=== PATIENT | female | born 1965 | race Two or more races ===

== ENCOUNTER 2019-06-05 19:53 | Inpatient (IN) | payer MEDICARE, MEDICAID ==
[~2019-06-05] VITALS: Ht 162.6 cm; Wt 64.4 kg
[~2019-06-05 19:53] MED LIST: AMIT75TA2 PO; AMLO10TA13 PO; APIX5TAB PO; ASPI81CH4 PO; ATO40T PO; B-COTAB10 PO; CARV25TA55 PO; FURO80TA3 PO; HYDR-4296 PO; INSREG3 SC; INSUINJ2 SC; SEVE800T8 PO
[2019-06-05 21:03] LABS: Basophils # (auto) 0.1 uL; Eosinophils # (auto) 0.7 uL; Eosinophils % (auto) 8.8 % (0.0-7.0); Hematocrit 36.9 % (36.0-46.0); Hemoglobin 12.2 g/dL (12.2-16.2); Lymphocytes # (auto) 0.7 uL; Lymphocytes % (auto) 9.3 % (10.0-50.0); Mean Corpuscular Hemoglobin 32.7 pg (28.0-32.0); Mean Corpuscular Hgb Conc. 33.1 g/dL (32.0-36.0); Monocytes # (auto) 0.6 uL; Monocytes % (auto) 7.8 % (0.0-12.0); Neutrophils # (auto) 5.5 uL; Neutrophils % (auto) 73.1 % (37.0-80.0); Platelet Count (auto) 154 10^3/uL (140-450); Red Blood Cells 3.73 10^6/uL (4.0-5.20); Red Cell Distribution Width 13.8 % (11.8-14.3); White Blood Cell 7.5 10^3/uL (4.4-10.8)
[2019-06-05 21:12] LABS: Albumin 2.9 g/dL (3.4-5.0); BUN/Creatinine Ratio 4.8; Calcium 7.8 mg/dL (8.5-10.1); Magnesium 2.3 mg/dL (1.6-2.6); Potassium 3.8 mmol/L (3.5-5.1)
[2019-06-05 21:16] LABS: Bilirubin, Total 0.7 mg/dL (0.2-1.0); Total Protein 6.8 g/dL (6.4-8.2)
[2019-06-05 21:21] LABS: INR 1.3 (0.9-1.15); Partial Thromboplastin Time 29.4 sec (23.64-32.05)
[2019-06-06] VITALS (7 sets, daily range): BP systolic 113–152; BP diastolic 66–80
[2019-06-06] MEDS ORDERED: DEXTROSE (50%) 50ML SYRG IV PRN (00:45)
[2019-06-06] MEDS ORDERED: TEMAZEPAM 15 MG CAP PO PRN (00:45)
[2019-06-06] MEDS ORDERED: NITROGLYCERIN 0.4 MG SL TAB SL PRN (00:45)
[2019-06-06] MEDS ORDERED: MORPHINE SULF INJ 2 MG/ML SYRINGE 1ML IV PRN (00:45)
[2019-06-06] MEDS ORDERED: cloNIDine HCL 0.1 MG TAB PO PRN (00:45)
[2019-06-06] MEDS ORDERED: ONDANSETRON HCL 4 MG/2 ML VIAL IV PRN (00:45)
[2019-06-06] MEDS ORDERED: ACETAMINOPHEN 325 MG TAB PO PRN (00:45)
--- NOTE | 2019-06-06 01:45 | NUR ---
Telemetry admit from [facility]TON admitted to Telemetry unit. Patient oriented to Billie Nava, primary RN, unit, room, bed, and unit policies regarding patient care and visiting hours. Patient now on continuous telemetry monitoring, tele box # 12. Patient weighed by bedscale and encouraged to call if they need something. All questions and concerns addressed, patient verbalized understanding.
[2019-06-06] MEDS: ACCU-CHEK COMFORT CURVE STRIP VI SCH ×3 (05:42→17:00)
[2019-06-06] MEDS: PANTOPRAZOLE 40 MG TAB PO SCH (05:51)
[2019-06-06] MEDS: InsuLIN REG 1unit/0.01ml Soln (100units/ml) SC SCH ×3 (05:51→17:00)
--- NOTE | 2019-06-06 07:45 | NUR ---
OPENING NOTE Assumed care of patient from NOC RN, Billie. Patient awake and alert with no S/S of distress/SOB or pain. Patient visually impaired but can see shadows and movement. Instructed on POC and to call for assist PRN, verbalized understanding. Bed in lowest, locked position with side rails up x2. Fall precautions in place and call light within reach. Will continue to monitor for changes Q1hr and PRN.
[2019-06-06] MEDS: SEVELAMER 800 MG TAB PO SCH ×3 (08:29→17:00)
[2019-06-06] MEDS ORDERED: APIXABAN 5 MG TAB PO SCH (10:00)
[2019-06-06] MEDS: ASPirin 81 mg TAB PO SCH (11:07)
[2019-06-06] MEDS: CARVEDILOL 12.5 MG TAB PO SCH ×2 (11:08→22:40)
[2019-06-06] MEDS: APIXABAN 5 MG TAB PO SCH ×2 (11:08→22:40)
[2019-06-06] MEDS: amLODIPine BESYLATE 5 MG TAB PO SCH (11:09)
--- NOTE | 2019-06-06 11:10 | NUR ---
AT BEDSIDE Dr. Wesley Pemberton at patient's bedside.
--- NOTE | 2019-06-06 11:19 | NUR ---
RADIOLOGY Spoke with Radha in radiology, confirmed that patient was on today's schedule for Paracentesis.
--- NOTE | 2019-06-06 13:56 | NUR ---
OFF UNIT Patient taken off unit via wheelchair for paracentesis. No S/S of distress noted.
--- NOTE | 2019-06-06 14:25 | NUR ---
PT IN ULTRASOUND FOR A PARACENTESIS BY DR GARRIDO. VSS 106/62-62-16-93%. 1435: 115/66-63-17-92%. 1450: 115/70-62-16-92%. 1505 116/64-63-16-93%. FINISHED WITH PROCEDURE. PT TOLERATED WELL. 5100 ML OF DARK ANDREINA FLUID REMOVED. NOT SENT TO LAB.
--- NOTE | 2019-06-06 15:17 | NUR ---
RETURN TO UNIT Patient returned to unit via wheelchair. No S/S of distress/SOB or pain. S/P paracentesis, dressing to right side of abdomen clean/dry/intact. Patient's family at bedside. Will continue to monitor Q1hr/PRN.
--- NOTE | 2019-06-06 19:27 | NUR ---
CLOSING NOTE Endorsed care of patient to NOC Anjelica GALLOWAY.
--- NOTE | 2019-06-06 19:30 | NUR ---
Opening Shift Note Assumed care of patient, awake and alert. Ghanaian speaking only. Very [place]. loses hearing aid in bed at times. Assist to ambulate. Wobbly on feet. Can see very minimal. Considered blind. No S/S of distress/SOB or pain. Instructed on POC and to call for assist PRN, will continue to monitor for changes Q1hr and PRN.
[2019-06-06] MEDS ORDERED: ATORVASTATIN 20 MG TAB PO SCH (22:00)
--- NOTE | 2019-06-06 22:00 | NUR ---
CT called asking if I can bring patient down for her CT chest. Let them know I could as soon as I was done with my med pass, verbalized that was ok. Patient resting at this time. No distress noted
--- NOTE | 2019-06-06 23:00 | NUR ---
Escorted patient down to CT via W/C. Had to wait for another patient who just arrived. CT was fully staffed, not sure why they could not come get the patients. I waited downstairs with my patient for 20 minutes.
[2019-06-07] MEDS: ACCU-CHEK COMFORT CURVE STRIP VI SCH ×3 (00:30→12:40)
[2019-06-07] MEDS: InsuLIN REG 1unit/0.01ml Soln (100units/ml) SC SCH ×3 (00:58→12:40)
[2019-06-07 05:13] VITALS: BP 110/66
[2019-06-07] MEDS: PANTOPRAZOLE 40 MG TAB PO SCH (05:41)
[2019-06-07 06:48] LABS: Hematocrit 36.5 % (36.0-46.0); Hemoglobin 12.4 g/dL (12.2-16.2); Mean Corpuscular Hemoglobin 33.3 pg (28.0-32.0); Mean Corpuscular Volume 98.1 fL (80.0-100.0); Platelet Count (auto) 127 10^3/uL (140-450); Red Blood Cells 3.72 10^6/uL (4.0-5.20); White Blood Cell 7.2 10^3/uL (4.4-10.8)
[2019-06-07 06:51] LABS: Potassium 4.6 mmol/L (3.5-5.1)
[2019-06-07 06:54] LABS: Band Neutrophils % (manual) 0; Basophils % (manual) 0 (0.0-2.0); Blast Cells 0; Metamyelocytes % 0; Myelocytes % 0; Promyelocytes % 0; Reactive Lymphocytes 0
[2019-06-07 07:01] LABS: Albumin 2.4 g/dL (3.4-5.0); BUN/Creatinine Ratio 5.7; Bilirubin, Total 0.6 mg/dL (0.2-1.0); Calcium 8.1 mg/dL (8.5-10.1); Total Protein 5.7 g/dL (6.4-8.2)
--- NOTE | 2019-06-07 07:43 | NUR ---
OPENING NOTE Assumed care of patient from NOC RN, Anjelica. Patient resting in bed with eyes closed, even rise and fall of chest. No S/S of distress/SOB or pain. Bed in lowest, locked position with side rails up x2. Fall precautions in place and call light within reach. Will continue to monitor for changes Q1hr and PRN.
[2019-06-07 07:55] LABS: Eosinophils % (manual) 20 (0-7); Lymphocytes % (manual) 10 (10.0-50.0); Monocytes % (manual) 6 (0-12)
[2019-06-07] MEDS: SEVELAMER 800 MG TAB PO SCH ×2 (08:35→12:39)
[2019-06-07 09:28] VITALS: BP 121/69
[2019-06-07] MEDS: CARVEDILOL 12.5 MG TAB PO SCH (10:21)
[2019-06-07] MEDS: APIXABAN 5 MG TAB PO SCH (10:21)
[2019-06-07] MEDS: ASPirin 81 mg TAB PO SCH (10:21)
[2019-06-07] MEDS: amLODIPine BESYLATE 5 MG TAB PO SCH (10:22)
--- NOTE | 2019-06-07 10:40 | NUR ---
DIALYSIS drivematic machine operator at bedside.
[2019-06-07] MEDS ORDERED: SODIUM CHL 0.9% 1000 ML BAG XX ONE (11:15)
--- NOTE | 2019-06-07 11:37 | NUR ---
FAMILY Attempted to notify family regarding discharge, unable to reach any contacts at this time. Will continue to try.
--- NOTE | 2019-06-07 13:13 | NUR ---
FAMILY Attempted to notify family regarding discharge, unable to reach any contacts at this time.
[2019-06-07 13:29] VITALS: BP 131/62
--- NOTE | 2019-06-07 13:40 | NUR ---
FAMILY Spoke with patient's spouse, aware of discharge. phone #
--- NOTE | 2019-06-07 13:51 | NUR ---
assessment re: blind and cant do most ADL's Patient is a 53 year old female who is alert and answering appropriately. Patient informed me prior to admission she lived home with family and functioned with assistance of her caregiver. Per patient she will return home to her prior living arrangements post discharge and family will transport her home. Patient informed me she has a fww for home use. Patient informed me she feels safe returning home on discharge. Patient informed me her also helps her at home. Patient may benefit from home health safety and PT on discharge. I informed patient she has a right to speak to a healthcare social worker regarding all care. I informed patient she has a right to participate in any and all discharge planning. Patient does not have a POA and advanced directive. I have offered patient information on POA and advanced directives. I informed the patient the advantages and benefits of having an Advanced Directive. Patient verbalized understanding and agreed to discharge plan home. Addendum: 06/07/19 at 1355 by Mellisa MAYO Amended: Links added.
--- NOTE | 2019-06-07 14:22 | NUR ---
DIALYSIS Per chef de cuisine, 1L of fluid was removed. Patient tolerated well. Last BP reading 131/61 HR 62bpm.
--- NOTE | 2019-06-07 15:40 | NUR ---
DISCHARGE Discharge instructions given as ordered. Encouraged to follow up with PMD as instructed. All questions and concerns addressed. Patient and spouse verbalized understanding. Medication reconciliation form completed and copy given to patient. IV removed with catheter intact and pressure dressing applied. Telemetry unit returned to ICU. Patient taken to vehicle via wheelchair with all personal belongings, accompanied by staff and family member. No distress noted at time of departure.
== END 2019-06-07 15:35 | disposition home or self-care (01) | DRG 291 ==
LOC: EDBD 19:53 → ER 19:53 → TELE-EAST 19:54
PROVIDERS: ADMIT Nurse Practitioner; ATTEND Family Medicine
PROC: 0W9G3ZZ Drainage of Peritoneal Cavity, Percutaneous Approach (ICD-10-PCS; principal; 2019-06-06)
PROC: 5A1D70Z Performance of Urinary Filtration, Intermittent, Less than 6 Hours Per Day (ICD-10-PCS; 2019-06-07)
DX: I13.2 Hypertensive heart and chronic kidney disease with heart failure and with stage 5 chronic kidney disease, or end stage renal disease (principal); N18.6 End stage renal disease; R18.8 Other ascites; I31.3 Pericardial effusion (noninflammatory); N04.9 Nephrotic syndrome with unspecified morphologic changes; E46 Unspecified protein-calorie malnutrition; C85.90 Non-Hodgkin lymphoma, unspecified, unspecified site; K72.90 Hepatic failure, unspecified without coma; K74.60 Unspecified cirrhosis of liver; R14.0 Abdominal distension (gaseous); I50.810 Right heart failure, unspecified; E11.22 Type 2 diabetes mellitus with diabetic chronic kidney disease; E78.5 Hyperlipidemia, unspecified; H54.8 Legal blindness, as defined in USA; H90.3 Sensorineural hearing loss, bilateral; E78.00 Pure hypercholesterolemia, unspecified; I25.10 Atherosclerotic heart disease of native coronary artery without angina pectoris; F32.9 Major depressive disorder, single episode, unspecified; M10.9 Gout, unspecified; R59.1 Generalized enlarged lymph nodes; I50.9 Heart failure, unspecified; Z79.01 Long term (current) use of anticoagulants; Z90.49 Acquired absence of other specified parts of digestive tract; Z99.2 Dependence on renal dialysis; Z79.82 Long term (current) use of aspirin
CPT/HCPCS: 10022; 36415; 70450; 71045; 71250; 72125; 74176; 76700; 76942; 80053; 82150; 82962; 83605; 83615; 83690; 83735; 83880; 84484; 84702; 85007; 85025; 85027; 85610; 85730; 90935; 96374; G0378; J1815; J2405

== ENCOUNTER 2019-07-11 11:20 | Inpatient (IN) | payer MEDICARE, MEDICAID ==
[~2019-07-11] VITALS: Ht 33 cm; Wt 96.5 kg
[~2019-07-11 11:20] MED LIST changes: +ASP81EC PO; +ATOR20TA50 PO; +CAR125T PO; +CLOP75TA28 PO; +FERR-20 PO; +FURO40TA4 PO; +HYD25T PO; +INSUINJ37 SUBCUT; +Isosorbide Mononitrate PO; +NEPVITT PO; +PANT1INJ3 PO
--- NOTE | 2019-07-11 11:40 | NUR ---
Direct Admit Note PINO FERRERA admitted to Telemetry/MS unit as a direct admit per MD order. Patient oriented to Lakia Woods, primary RN, unit, room, bed, and unit policies regarding patient care and visiting hours. Patient placed on bedside oxygen, weighed by bedscale and encouraged to call if they need something. All questions and concerns addressed, patient verbalized understanding. MD notified of patients arrival and admit orders received.
[2019-07-11 13:00] VITALS: BP 179/85
[2019-07-11] MEDS ORDERED: LISI10TA6 PO (13:20)
[2019-07-11 14:02] LABS: Basophils # (auto) 0.1 uL; Basophils % (auto) 1.3 % (0.0-2.0); Eosinophils # (auto) 0.8 uL; Eosinophils % (auto) 10.3 % (0.0-7.0); Hematocrit 34.8 % (36.0-46.0); Hemoglobin 11.2 g/dL (12.2-16.2); Lymphocytes # (auto) 0.9 uL; Lymphocytes % (auto) 12.4 % (10.0-50.0); Mean Corpuscular Hemoglobin 32.1 pg (28.0-32.0); Mean Corpuscular Hgb Conc. 32.2 g/dL (32.0-36.0); Mean Corpuscular Volume 99.5 fL (80.0-100.0); Monocytes # (auto) 0.7 uL; Monocytes % (auto) 9.1 % (0.0-12.0); Neutrophils # (auto) 4.9 uL; Neutrophils % (auto) 66.9 % (37.0-80.0); Platelet Count (auto) 168 10^3/uL (140-450); Red Cell Distribution Width 14.4 % (11.8-14.3); White Blood Cell 7.3 10^3/uL (4.4-10.8)
[2019-07-11 14:18] LABS: Calcium 8.2 mg/dL (8.5-10.1); Potassium 4.8 mmol/L (3.5-5.1)
[2019-07-11 14:20] LABS: BUN/Creatinine Ratio 7.3
[2019-07-11] MEDS ORDERED: APIX2.5T PO (14:29)
--- NOTE | 2019-07-11 14:30 | NUR ---
MD DR FRANKEL AT BEDSIDE, UPDATE ON POSSIBILITY THAT PATIENT TAKES ELIQUIS AT HOME, VERIFIED WITH OFFICE THAT PATIENT DOES TAKE ELIQUIS 2.5MG BID. DR FRANKEL STATED TO PAGE DR OSPINA TO SEE IF HE WANTS PATIENT ADMITTED PENDING PARACENTESIS POSSIBLY TUESDAY WITH DR GARRIDO. WAITING FOR DR OSPINA TO CALL BACK.
--- NOTE | 2019-07-11 14:45 | NUR ---
IV insertion IV access obtained, via clean sterile technique by inserting 22 gauge catheter at RIGHT HAND after 1 attempt BY RELATIONSHIP EXECUTIVE JOSLYN. IV secured properly. No trauma to site. Patient tolerated well. NOTE:
--- NOTE | 2019-07-11 14:50 | NUR ---
DR OSPINA UPDATED ON PLAN AND CURRENT ORDERS PER DR FRANKEL REQUEST
[2019-07-11 17:00] VITALS: BP 182/86
--- NOTE | 2019-07-11 17:22 | NUR ---
ORDER NEW ORDER OBTAINED FROM DR FRANKEL FOR PRN BP MEDICATION.
[2019-07-11] MEDS ORDERED: cloNIDine HCL 0.1 MG TAB PO PRN (17:30)
[2019-07-11] MEDS: SEVELAMER 800 MG TAB PO SCH (18:15)
--- NOTE | 2019-07-11 18:23 | NUR ---
BLOOD SUGAR PATIENT REQUESTED TO HAVE HER SUGAR CHECKED BECAUSE SHE FELT LIKE IT WAS LOW, SUGAR CHECKED AND IS 389, MD AWARE- NO COVERAGE AT THIS TIME.
[2019-07-11 21:00] VITALS: BP 151/81
[2019-07-11] MEDS ORDERED: INSULIN NPH Isophane (HUMAN) 1unit/0.01ml Susp(100units/ml) SC SCH (22:00)
[2019-07-11] MEDS ORDERED: InsuLIN REG 1unit/0.01ml Soln (100units/ml) SC SCH (22:00)
[2019-07-11] MEDS: AMITRIPTYLINE HCL 25 MG TAB PO SCH (22:02)
[2019-07-11] MEDS: CARVEDILOL 12.5 MG TAB PO SCH (22:02)
[2019-07-11] MEDS: ATORVASTATIN 20 MG TAB PO SCH (22:03)
[2019-07-12 04:50] VITALS: BP 137/74
[2019-07-12 08:00] VITALS: BP 139/82
[2019-07-12 09:00] VITALS: BP 139/82
[2019-07-12 09:18] LABS: INR 1.16 (0.9-1.15)
[2019-07-12] MEDS: SEVELAMER 800 MG TAB PO SCH ×3 (09:54→18:39)
[2019-07-12] MEDS: CARVEDILOL 12.5 MG TAB PO SCH ×2 (09:55→21:31)
[2019-07-12] MEDS: FUROSEMIDE 40 MG TAB PO SCH (09:55)
[2019-07-12] MEDS: LISINOPRIL 10 MG TAB PO SCH (09:56)
[2019-07-12] MEDS ORDERED: cloNIDine HCL 0.1 MG TAB PO PRN (11:30)
[2019-07-12] MEDS ORDERED: DEXTROSE (50%) 50ML SYRG IV PRN (11:30)
[2019-07-12] MEDS: ACCU-CHEK COMFORT CURVE STRIP VI SCH ×3 (11:30→22:18)
[2019-07-12] MEDS: InsuLIN REG 1unit/0.01ml Soln (100units/ml) SC SCH ×3 (11:30→22:24)
[2019-07-12 13:00] VITALS: BP 152/84
[2019-07-12] MEDS ORDERED: SODIUM CHL 0.9% 1000 ML BAG XX ONE (16:45)
[2019-07-12 17:00] VITALS: BP_SYST 157; BP_SYST 165; BP_DIAS 83; BP_DIAS 94
[2019-07-12] MEDS: ATORVASTATIN 20 MG TAB PO SCH (21:31)
[2019-07-12] MEDS: AMITRIPTYLINE HCL 25 MG TAB PO SCH (21:31)
[2019-07-12 22:00] VITALS: BP 156/79
[2019-07-13 05:34] VITALS: BP 149/72
[2019-07-13 05:40] LABS: Basophils # (auto) 0.1 uL; Basophils % (auto) 1.1 % (0.0-2.0); Eosinophils # (auto) 0.8 uL; Eosinophils % (auto) 13.1 % (0.0-7.0); Hematocrit 33.7 % (36.0-46.0); Hemoglobin 11.3 g/dL (12.2-16.2); Lymphocytes # (auto) 0.8 uL; Lymphocytes % (auto) 12.4 % (10.0-50.0); Mean Corpuscular Hemoglobin 32.8 pg (28.0-32.0); Mean Corpuscular Hgb Conc. 33.4 g/dL (32.0-36.0); Mean Corpuscular Volume 98.2 fL (80.0-100.0); Monocytes # (auto) 0.5 uL; Monocytes % (auto) 8.2 % (0.0-12.0); Neutrophils # (auto) 4.2 uL; Neutrophils % (auto) 65.2 % (37.0-80.0); Platelet Count (auto) 151 10^3/uL (140-450); Red Blood Cells 3.43 10^6/uL (4.0-5.20); Red Cell Distribution Width 14.3 % (11.8-14.3); White Blood Cell 6.4 10^3/uL (4.4-10.8)
[2019-07-13 05:59] LABS: BUN/Creatinine Ratio 6.7; Potassium 4.7 mmol/L (3.5-5.1)
[2019-07-13] MEDS: ACCU-CHEK COMFORT CURVE STRIP VI SCH ×2 (06:31→11:54)
[2019-07-13] MEDS: InsuLIN REG 1unit/0.01ml Soln (100units/ml) SC SCH ×2 (06:31→11:54)
[2019-07-13 09:00] VITALS: BP 150/84
--- NOTE | 2019-07-13 09:15 | NUR ---
PT IN ULTRASOUND FOR A PARACENTESIS. VSS 154/75-67-16-95%. 0930:160/70-68-16-95%. 0945: 160/76-68-17-97%. 1000: 162/79-66-17-95%. FINISHED WITH PROCEDURE. PT TOLERATED WELL. 5500ML OF FLUID REMOVED AND SENT TO LAB.
--- NOTE | 2019-07-13 09:45 | NUR ---
PATIENT BACK ON UNIT FROM ULTRASOUND AFTER RECEIVING A PARACENTESIS. DRESSING TO RIGHT SIDE OF ABDOMEN DRY AND INTACT. PATIENT DENIES PAIN VITAL SIGNS WITHIN NORMAL LIMITS. WILL CONTINUE TO MONITOR.
[2019-07-13] MEDS: LISINOPRIL 10 MG TAB PO SCH (10:15)
[2019-07-13] MEDS: SEVELAMER 800 MG TAB PO SCH ×2 (10:15→11:54)
[2019-07-13] MEDS: FUROSEMIDE 40 MG TAB PO SCH (10:16)
[2019-07-13] MEDS: CARVEDILOL 12.5 MG TAB PO SCH (10:16)
--- NOTE | 2019-07-13 11:40 | NUR ---
SPOKE TO NEPHROLOGY SPOKE TO DR COLEMAN. VERBALIZED OKAY TO DISCHARGE AND TO EDUCATE PATIENT TO GO TO [facility] TODAY AT 2:00PM FOR DIALYSIS TREATMENT AFTER DISCHARGE. WILL CARRY OUT ORDERS
--- NOTE | 2019-07-13 11:45 | NUR ---
SPOKE TO CARDIOLOGY SPOKE TO DR FRANKEL, HE VERBALIZED IT WAS OKAY TO DISCHARGE PATIENT TODAY
[2019-07-13 12:11] VITALS: BP 153/74
--- NOTE | 2019-07-13 13:46 | NUR ---
DISCHARGE NOTE PATIENT ALERT AND ORIENTED X4 SPOUSE AT BEDSIDE. ALL DISCHARGE INSTRUCTIONS WERE GIVEN ALL QUESTIONS CONCERNS ADDRESSED AND QUESTIONS ANSWERED. DRESSING TO RIGHT SIDE OF ABDOMEN DRY AND INTACT. IV REMOVED USING ASEPTIC TECHNIQUE CATHETER INTACT PRESSURE DRESSING APPLIED PATIENT TOLERATED WELL. PATIENT EDUCATED TO GO TO [facility] FOR DIALYSIS AT 2:00PM PER DR COLEMAN. DR FRANKEL AGREED TO DISCHARGE ALSO. PATIENT DENIED ANY PAIN, SOB OR DISTRESS. ASSISTED PATIENT TO PERSONAL VEHICLE USING A WHEELCHAIR.
== END 2019-07-13 13:45 | disposition home or self-care (01) | DRG 432 ==
LOC: EAST 11:20
PROVIDERS: ADMIT Internal Medicine; ATTEND Internal Medicine
PROC: 5A1D70Z Performance of Urinary Filtration, Intermittent, Less than 6 Hours Per Day (ICD-10-PCS; 2019-07-12)
PROC: 0W9G3ZZ Drainage of Peritoneal Cavity, Percutaneous Approach (ICD-10-PCS; principal; 2019-07-13)
DX: K74.60 Unspecified cirrhosis of liver (principal); N18.6 End stage renal disease; I50.43 Acute on chronic combined systolic (congestive) and diastolic (congestive) heart failure; R18.8 Other ascites; I13.2 Hypertensive heart and chronic kidney disease with heart failure and with stage 5 chronic kidney disease, or end stage renal disease; E44.0 Moderate protein-calorie malnutrition; Z68.45 Body mass index [BMI] 70 or greater, adult; E11.319 Type 2 diabetes mellitus with unspecified diabetic retinopathy without macular edema; E11.22 Type 2 diabetes mellitus with diabetic chronic kidney disease; H54.8 Legal blindness, as defined in USA; E78.5 Hyperlipidemia, unspecified; F32.9 Major depressive disorder, single episode, unspecified; K76.0 Fatty (change of) liver, not elsewhere classified; B95.62 Methicillin resistant Staphylococcus aureus infection as the cause of diseases classified elsewhere; I25.10 Atherosclerotic heart disease of native coronary artery without angina pectoris; D64.9 Anemia, unspecified; I48.91 Unspecified atrial fibrillation; Z99.2 Dependence on renal dialysis; Z79.01 Long term (current) use of anticoagulants; Z79.899 Other long term (current) drug therapy
CPT/HCPCS: 10022; 36415; 49083; 76700; 76942; 80048; 82962; 83986; 85025; 85610; 87081; 87205; 89051; 90935; G0378; J1815

== ENCOUNTER 2019-07-23 15:36 | Inpatient (IN) | payer MEDICARE, MEDICAID ==
[~2019-07-23] VITALS: Ht 162.6 cm; Wt 27.6 kg
[~2019-07-23 15:36] MED LIST changes: +APIX2.5T PO; -APIX5TAB PO; +LISI10TA6 PO
[2019-07-23] MEDS ORDERED: ASPirin 81 mg TAB PO ONE (16:30)
[2019-07-23] MEDS ORDERED: NITROGLYCERIN 0.4 MG SL TAB SL ONE (16:30)
[2019-07-23 16:48] LABS: Basophils # (auto) 0.1 uL; Basophils % (auto) 1.5 % (0.0-2.0); Eosinophils # (auto) 0.8 uL; Eosinophils % (auto) 12.3 % (0.0-7.0); Hematocrit 36.3 % (36.0-46.0); Hemoglobin 12.1 g/dL (12.2-16.2); Lymphocytes # (auto) 0.7 uL; Lymphocytes % (auto) 10.2 % (10.0-50.0); Mean Corpuscular Hemoglobin 33.2 pg (28.0-32.0); Mean Corpuscular Hgb Conc. 33.5 g/dL (32.0-36.0); Mean Corpuscular Volume 99.3 fL (80.0-100.0); Monocytes # (auto) 0.4 uL; Monocytes % (auto) 6.3 % (0.0-12.0); Neutrophils # (auto) 4.8 uL; Neutrophils % (auto) 69.7 % (37.0-80.0); Nucleated Red Blood Cells % 0.1 %; Platelet Count (auto) 163 10^3/uL (140-450); Red Blood Cells 3.66 10^6/uL (4.0-5.20); Red Cell Distribution Width 13.9 % (11.8-14.3); White Blood Cell 6.9 10^3/uL (4.4-10.8)
[2019-07-23 17:03] LABS: Albumin 2.9 g/dL (3.4-5.0); Blood Urea Nitrogen 34 mg/dL (7-18); Calcium 7.8 mg/dL (8.5-10.1); Carbon Dioxide 29 mmol/L (21-32); Glucose 192 mg/dL (74-106)
[2019-07-23 17:05] LABS: Alanine Aminotransferase 14 U/L (13-56); Anion Gap 6 (5-15); Aspartate Aminotransferase 14 U/L (15-37); BUN/Creatinine Ratio 9.5; Chloride 101 mmol/L (98-107); GFR African American 17 mL/min; GFR Non-African American 14 mL/min; Potassium 4.2 mmol/L (3.5-5.1); Sodium 136 mmol/L (136-145)
[2019-07-23 17:08] LABS: INR 1.08 (0.9-1.15); Partial Thromboplastin Time 27.3 sec (23.64-32.05)
[2019-07-23 17:09] LABS: Alkaline Phosphatase 342 U/L (45-117); Bilirubin, Total 0.4 mg/dL (0.2-1.0); Total Protein 6.9 g/dL (6.4-8.2)
[2019-07-23] MEDS ORDERED: ONDANSETRON HCL 4 MG/2 ML VIAL IV PRN (21:00)
[2019-07-23] MEDS ORDERED: FUROSEMIDE 40 MG/4 ML VIAL IV ONE (21:00)
[2019-07-23] MEDS ORDERED: DEXTROSE (50%) 50ML SYRG IV PRN (21:00)
[2019-07-23] MEDS ORDERED: TEMAZEPAM 15 MG CAP PO PRN (21:00)
[2019-07-23] MEDS ORDERED: NITROGLYCERIN 0.4 MG SL TAB SL PRN (21:30)
[2019-07-23] MEDS ORDERED: MORPHINE SULF INJ 2 MG/ML SYRINGE 1ML IV PRN (21:30)
[2019-07-23] MEDS: hydrALAZINE HCL 25 MG TAB PO SCH (21:37)
[2019-07-23] MEDS: ATORVASTATIN 20 MG TAB PO SCH (21:38)
[2019-07-23] MEDS: CARVEDILOL 12.5 MG TAB PO SCH (21:38)
[2019-07-23 22:55] VITALS: BP 154/78
--- NOTE | 2019-07-23 22:55 | NUR ---
Telemetry admit from [facility] admitted to Telemetry unit after SBAR received. Patient oriented to Hien Ibarra, primary RN, unit, room, bed, and unit policies regarding patient care and visiting hours. Patient now on continuous telemetry monitoring, tele box # 1 and telemetry reading on arrival to unit is . Patient placed on bedside oxygen, weighed by bedscale and encouraged to call if they need something. All questions and concerns addressed, patient verbalized understanding. pt. blind. Note:
[2019-07-23] MEDS: InsuLIN REG 1unit/0.01ml Soln (100units/ml) SC SCH (23:58)
[2019-07-23] MEDS: ACCU-CHEK COMFORT CURVE STRIP VI SCH (23:58)
[2019-07-24 05:00] VITALS: BP 148/80
[2019-07-24] MEDS: FUROSEMIDE 40 MG TAB PO SCH ×2 (05:26→18:07)
[2019-07-24] MEDS: InsuLIN REG 1unit/0.01ml Soln (100units/ml) SC SCH ×4 (05:26→23:33)
[2019-07-24] MEDS: ACCU-CHEK COMFORT CURVE STRIP VI SCH ×4 (05:27→23:34)
[2019-07-24 07:56] LABS: Basophils # (auto) 0.1 uL; Basophils % (auto) 1.8 % (0.0-2.0); Eosinophils # (auto) 0.7 uL; Eosinophils % (auto) 12.7 % (0.0-7.0); Hematocrit 35.9 % (36.0-46.0); Hemoglobin 11.9 g/dL (12.2-16.2); Lymphocytes # (auto) 0.6 uL; Lymphocytes % (auto) 10.9 % (10.0-50.0); Mean Corpuscular Hemoglobin 32.7 pg (28.0-32.0); Mean Corpuscular Volume 99.1 fL (80.0-100.0); Monocytes # (auto) 0.5 uL; Monocytes % (auto) 7.8 % (0.0-12.0); Neutrophils # (auto) 3.9 uL; Neutrophils % (auto) 66.8 % (37.0-80.0); Platelet Count (auto) 153 10^3/uL (140-450); Red Blood Cells 3.63 10^6/uL (4.0-5.20); White Blood Cell 5.9 10^3/uL (4.4-10.8)
--- NOTE | 2019-07-24 08:10 | NUR ---
Opening Note Assumed care of patient, she is A & O x4, patient is guinean speaking, but can speak some Greek. No s/s of distress at this time, patient is sitting up at bedside eating breakfast. POC discussed with patient. No c/o pain at this time. Bed is in lowest, locked position, call light within reach. Educated patient to call for assistance to the bathroom because patient is visually impaired. Patient agreed. Will continue to monitor Q1h and PRN.
[2019-07-24 08:13] LABS: Calcium 8.1 mg/dL (8.5-10.1); Potassium 4.8 mmol/L (3.5-5.1)
[2019-07-24] MEDS: SILDENAFIL CITRATE 20 MG TAB PO SCH ×3 (08:21→22:03)
[2019-07-24] MEDS: SEVELAMER 800 MG TAB PO SCH ×3 (08:22→18:08)
[2019-07-24 08:30] VITALS: BP 157/88
[2019-07-24 10:26] LABS: Phosphorus 3.4 mg/dL (2.5-4.90); Uric Acid 3.8 mg/dL (2.6-6.0)
[2019-07-24] MEDS: ASPirin 81 mg TAB PO SCH (10:56)
[2019-07-24] MEDS: CLOPIDOGREL BISULFATE 75 MG TAB PO SCH (10:56)
[2019-07-24] MEDS: PANTOPRAZOLE 40 MG TAB PO SCH (10:58)
[2019-07-24] MEDS: CARVEDILOL 12.5 MG TAB PO SCH ×2 (10:58→22:03)
[2019-07-24] MEDS: hydrALAZINE HCL 25 MG TAB PO SCH ×2 (10:58→22:03)
[2019-07-24] MEDS: ISOSORBIDE MONONITRATE ER 60 MG TAB PO SCH (10:58)
--- NOTE | 2019-07-24 12:02 | NUR ---
Dr. Pemberton at bedside. He will place orders. Will await to see if US of lower extremities is positive for DVT.
[2019-07-24 12:30] VITALS: BP 143/76
--- NOTE | 2019-07-24 14:00 | NUR ---
US of lower extremities is negative for DVT.
[2019-07-24 16:47] VITALS: BP 128/63
[2019-07-24] MEDS: ACETAMINOPHEN 325 MG TAB PO PRN (18:48)
--- NOTE | 2019-07-24 19:10 | NUR ---
assumed care, pt. awake, assisted pt. to br than back to bed, no c/o pain, no sob.
--- NOTE | 2019-07-24 20:00 | NUR ---
called up pharmacy re: pt. revatio given late at 1800, as per pharmacy, will give revatio at 2200.
[2019-07-24] MEDS: ATORVASTATIN 20 MG TAB PO SCH (22:04)
[2019-07-24 22:20] VITALS: BP 115/59
[2019-07-25] VITALS (7 sets, daily range): BP systolic 135–156; BP diastolic 67–78
[2019-07-25] MEDS: ACETAMINOPHEN 325 MG TAB PO PRN (03:18)
[2019-07-25] MEDS: InsuLIN REG 1unit/0.01ml Soln (100units/ml) SC SCH ×3 (05:30→19:11)
[2019-07-25] MEDS: ACCU-CHEK COMFORT CURVE STRIP VI SCH ×3 (05:30→19:10)
[2019-07-25] MEDS: FUROSEMIDE 40 MG TAB PO SCH ×2 (05:31→19:03)
[2019-07-25] MEDS ORDERED: SODIUM CHL 0.9% 1000 ML BAG XX ONE (07:00)
[2019-07-25] MEDS: SILDENAFIL CITRATE 20 MG TAB PO SCH ×2 (08:03→14:00)
[2019-07-25] MEDS: SEVELAMER 800 MG TAB PO SCH ×3 (08:03→19:00)
[2019-07-25] MEDS: ASPirin 81 mg TAB PO SCH (08:03)
--- NOTE | 2019-07-25 08:10 | NUR ---
Opening Note Assumed care of patient, she is A & O x4, no s/s of distress. Patient c/o headache, will medicate per orders. Patient is otherwise comfortable at this time. POC discussed with patient, bed is in lowest, locked position, call light within reach, bed rails up x2, bed alarm on. Notified patient to call for assistance to get up as she is visually impaired. Will continue to monitor Q1H and PRN.
--- NOTE | 2019-07-25 08:25 | NUR ---
Dr. Pemberton at bedside. Patient will have dialysis and paracentesis today and then discharge home.
[2019-07-25] MEDS: CARVEDILOL 12.5 MG TAB PO SCH (10:00)
[2019-07-25] MEDS: ISOSORBIDE MONONITRATE ER 60 MG TAB PO SCH (10:00)
[2019-07-25] MEDS: hydrALAZINE HCL 25 MG TAB PO SCH (10:00)
--- NOTE | 2019-07-25 10:20 | NUR ---
adult education manager called she will be here for Dialysis at 1400.
--- NOTE | 2019-07-25 10:20 | NUR ---
DR GARRIDO AT BEDSIDE FOR PARACENTESIS PATIENT TOLERATED WELL, FLUID DRAINING, CRULLER MAKER MACHINE AND RN AT BEDSIDE.
--- NOTE | 2019-07-25 10:55 | NUR ---
PARACENTESIS COMPLETE 4,350ML REMOVED. NO ORDERS FOR LAB ON FLUID. PATIENT TOLERATED WELL.
[2019-07-25] MEDS: PANTOPRAZOLE 40 MG TAB PO SCH (12:06)
[2019-07-25] MEDS: CLOPIDOGREL BISULFATE 75 MG TAB PO SCH (12:07)
--- NOTE | 2019-07-25 15:00 | NUR ---
Dialysis Nurse at bedside
--- NOTE | 2019-07-25 17:53 | NUR ---
Paged Hospitalist Patient currently getting dialysis, BP beginning to rise 173/78, there are no PRN for elevated BP. Spoke to Rafael Moreland Hospitalist. Orders, received, readback and verified. Orders to wait until dialysis is done, then medicate per orders.
[2019-07-25] MEDS ORDERED: LABETALOL HCL 5 MG/ML ML 20ML VIAL IV PRN (18:00)
--- NOTE | 2019-07-25 18:40 | NUR ---
Dialysis complete Patient tolerated well. Blood pressure 165/78, HR 74, will recheck blood pressure in 15 minutes. If high will medicate per orders. Patient is comfortable at this time. This RN spoke to her , he is on his way to pickle processor the patient, as she is being discharged.
--- NOTE | 2019-07-25 19:00 | NUR ---
Blood pressure rechecked 159/82, HR 77. Patient okay to go home. at bedside. Pressure held to the AV fistula on the left arm, bleeding has stopped.
--- NOTE | 2019-07-25 19:30 | NUR ---
Discharge instructions given as ordered. Encourage to follow up with PMD as instructed. All questions and concerns addressed. Patient verbalized understanding. Medication reconciliation form completed and copy given to patient. IV removed with catheter intact, pressure dressing applied. Telemetry unit returned to ICU. Patient taken to vehicle via wheelchair with all personal belongings, accompanied by staff and family member. No distress noted at time of departure.
== END 2019-07-25 19:30 | disposition home or self-care (01) | DRG 280 ==
LOC: EDBD 15:36 → ER 15:42 → MERGE 15:43 → TELE 15:43 → TELE-EAST 22:35
PROVIDERS: ADMIT Nurse Practitioner; ATTEND Family Medicine
PROC: 5A1D70Z Performance of Urinary Filtration, Intermittent, Less than 6 Hours Per Day (ICD-10-PCS; principal; 2019-07-25)
PROC: 0W9G3ZZ Drainage of Peritoneal Cavity, Percutaneous Approach (ICD-10-PCS; 2019-07-25)
DX: I21.A1 Myocardial infarction type 2 (principal); N18.6 End stage renal disease; I50.43 Acute on chronic combined systolic (congestive) and diastolic (congestive) heart failure; I13.2 Hypertensive heart and chronic kidney disease with heart failure and with stage 5 chronic kidney disease, or end stage renal disease; I31.3 Pericardial effusion (noninflammatory); R18.8 Other ascites; R07.9 Chest pain, unspecified; D63.1 Anemia in chronic kidney disease; K74.60 Unspecified cirrhosis of liver; E11.22 Type 2 diabetes mellitus with diabetic chronic kidney disease; E11.319 Type 2 diabetes mellitus with unspecified diabetic retinopathy without macular edema; E11.65 Type 2 diabetes mellitus with hyperglycemia; E78.5 Hyperlipidemia, unspecified; I08.3 Combined rheumatic disorders of mitral, aortic and tricuspid valves; I25.10 Atherosclerotic heart disease of native coronary artery without angina pectoris; F32.9 Major depressive disorder, single episode, unspecified; F41.9 Anxiety disorder, unspecified; M10.9 Gout, unspecified; H54.8 Legal blindness, as defined in USA; I27.20 Pulmonary hypertension, unspecified; Z99.2 Dependence on renal dialysis; Z90.49 Acquired absence of other specified parts of digestive tract; Z79.899 Other long term (current) drug therapy; Z86.73 Personal history of transient ischemic attack (TIA), and cerebral infarction without residual deficits
CPT/HCPCS: 10022; 36415; 49083; 71045; 74176; 76705; 76942; 80048; 80053; 82306; 82728; 82962; 83880; 83970; 84100; 84484; 84550; 85025; 85379; 85610; 85730; 90935; 93005; 93970; G0378; J1815

== ENCOUNTER → 2019-08-10 | Outpatient (CLI) | payer MEDICARE, MEDICAID | END | disposition home or self-care (01) | LOC: Rad HDHVI 11:54 | PROVIDERS: ATTEND Internal Medicine | DX: I13.2 Hypertensive heart and chronic kidney disease with heart failure and with stage 5 chronic kidney disease, or end stage renal disease (principal); E11.22 Type 2 diabetes mellitus with diabetic chronic kidney disease; N18.6 End stage renal disease; I50.9 Heart failure, unspecified; E78.5 Hyperlipidemia, unspecified; Z86.73 Personal history of transient ischemic attack (TIA), and cerebral infarction without residual deficits; Z90.49 Acquired absence of other specified parts of digestive tract | CPT/HCPCS: 71100 ==

== ENCOUNTER 2019-08-30 08:40 | Inpatient (IN) | payer MEDICARE, MEDICAID ==
[~2019-08-30] VITALS: Ht 162.6 cm; Wt 69.9 kg
[2019-08-30 11:14] LABS: Hematocrit 36.1 % (36.0-46.0); Mean Corpuscular Hemoglobin 32.8 pg (28.0-32.0); Mean Corpuscular Hgb Conc. 33.1 g/dL (32.0-36.0); Platelet Count (auto) 161 10^3/uL (140-450); Red Blood Cells 3.65 10^6/uL (4.0-5.20); Red Cell Distribution Width 13.8 % (11.8-14.3); White Blood Cell 5.2 10^3/uL (4.4-10.8)
[2019-08-30 11:16] LABS: Band Neutrophils % (manual) 0; Basophils % (manual) 0 (0.0-2.0); Blast Cells 0; Metamyelocytes % 0; Myelocytes % 0; Promyelocytes % 0; Reactive Lymphocytes 0
[2019-08-30 11:37] LABS: Albumin 2.8 g/dL (3.4-5.0); Potassium 4.6 mmol/L (3.5-5.1)
[2019-08-30 11:40] LABS: BUN/Creatinine Ratio 7.5; Bilirubin, Total 0.6 mg/dL (0.2-1.0); Total Protein 6.8 g/dL (6.4-8.2)
[2019-08-30 11:48] LABS: Eosinophils % (manual) 17 (0-7); Lymphocytes % (manual) 10 (10.0-50.0); Monocytes % (manual) 7 (0-12)
[2019-08-30] MEDS ORDERED: ACETAMINOPHEN 500 MG TAB PO PRN (15:30)
[2019-08-30] MEDS ORDERED: PROMETHAZINE HCL 25 MG/ML 1ML IV PRN (15:30)
[2019-08-30] MEDS ORDERED: DEXTROSE (50%) 50ML SYRG IV PRN (15:30)
[2019-08-30] MEDS ORDERED: NITROGLYCERIN 0.4 MG SL TAB SL PRN (15:30)
[2019-08-30] MEDS ORDERED: traMADol HCL 50 MG TAB PO PRN (15:30)
[2019-08-30] MEDS ORDERED: MORPHINE SULF INJ 2 MG/ML SYRINGE 1ML IV PRN (15:30)
[2019-08-30] MEDS ORDERED: TEMAZEPAM 15 MG CAP PO PRN (15:30)
[2019-08-30 15:54] LABS: Amylase 43 U/L (25-115); Lipase 71 U/L (73-393)
--- NOTE | 2019-08-30 16:40 | NUR ---
RECEIVED REPORT FROM SELENA IN ER.
[2019-08-30] MEDS: ACCU-CHEK COMFORT CURVE STRIP VI SCH ×2 (17:00→22:41)
[2019-08-30] MEDS: InsuLIN REG 1unit/0.01ml Soln (100units/ml) SC SCH ×2 (17:00→22:42)
[2019-08-30 17:26] VITALS: BP 158/80
[2019-08-30 18:08] VITALS: BP 158/80
--- NOTE | 2019-08-30 19:25 | NUR ---
ADMISSION ASSESSMENT COMPLETED. LEFT UPPER ARM AV FISTULA POSITIVE BRUIE AND THRILL. STATES HD M W F AND THAT SHE DID HAVE HD YESTERDAY. NOW C/O PAIN TO RT KNEE. STATES SHE FELL IN THE BATHROOM IN ER WHEN TRYING TO GIVE A URINE SPECIMEN. MADE ONCOMING RN AWARE OF C/O AND NEED FOR URINE SPECIMEN.
--- NOTE | 2019-08-30 19:35 | NUR ---
Opening Shift Note Assumed care of patient, awake and alert oriented x4, bed alarm is armed. No S/S of distress/SOB noted. Bed is in lowest locked position with bed rails up x2 and call light is within reach of the patient with sticker to locate call light over nurse button. Instructed on POC and to call for assist PRN. Patients left upper arm AV fistula positive bruit and thrill.
[2019-08-30] MEDS: AMITRIPTYLINE HCL 25 MG TAB PO SCH (20:00)
[2019-08-30] MEDS: FUROSEMIDE 40 MG TAB PO SCH (20:01)
--- NOTE | 2019-08-30 20:30 | NUR ---
Placed PT/PTT blood draw for coags per protocol for radiology paracentesis tomorrow.
[2019-08-30 22:00] VITALS: BP 167/80
[2019-08-30] MEDS ORDERED: APIXABAN 2.5 MG TAB PO SCH (22:00)
[2019-08-30] MEDS: SEVELAMER 800 MG TAB PO SCH (22:37)
[2019-08-30] MEDS: hydrALAZINE HCL 25 MG TAB PO SCH (22:38)
[2019-08-30] MEDS: CARVEDILOL 12.5 MG TAB PO SCH (22:38)
[2019-08-30] MEDS: ATORVASTATIN 20 MG TAB PO SCH (22:39)
[2019-08-30] MEDS: FAMOTIDINE 20 MG TAB PO SCH (22:48)
[2019-08-30 23:34] LABS: Urine Bacteria FEW /hpf (None Seen); Urine Blood 1+ /uL (Negative); Urine Hyaline Cast FEW /lpf (0 - 2); Urine Specific Gravity 1.016 (1.001-1.035); Urine WBC 6 /hpf (0 - 5)
--- NOTE | 2019-08-31 01:55 | NUR ---
Blood sugar drop: Patients blood sugar dropped, patient was having complaints of hunger and dizziness. Checked blood sugar and it was 47. Rechecked critical blood sugar and it was 45. Gave patient a gram cracker and apple juice and sugar. To reassess blood sugar.
--- NOTE | 2019-08-31 02:35 | NUR ---
Rechecked blood sugar: Patient states "I'm feeling a lot better now." Patient no longer dizzy. Blood sugar reassessed and it is now 65, trending back up. To page and notify hospitalist.
--- NOTE | 2019-08-31 02:37 | NUR ---
Paged hospitalist: Paged hospitalist regarding patients dropped blood sugar and to notify about dropped blood sugar but it is now trending back up. Waiting for call back.
--- NOTE | 2019-08-31 02:59 | NUR ---
Hospitalist called Back: Hospitalist Dennys called back. Updated about patients low blood sugar and that low blood sugar is resolving and is now 65, patient now asymptomatic. No new orders given regarding blood sugar. Asked about a diet order for the patient and updated about patients history and diagnosis. Ordered for patient to be on a consistent carb hepatic controlled diet. To place orders.
[2019-08-31 05:00] VITALS: BP 143/79
[2019-08-31] MEDS: SEVELAMER 800 MG TAB PO SCH ×3 (05:54→22:17)
[2019-08-31] MEDS: FUROSEMIDE 40 MG TAB PO SCH ×2 (05:56→18:37)
[2019-08-31] MEDS: ACCU-CHEK COMFORT CURVE STRIP VI SCH ×4 (05:57→22:17)
[2019-08-31 06:16] LABS: Potassium 4.5 mmol/L (3.5-5.1)
[2019-08-31 06:24] LABS: Albumin 2.6 g/dL (3.4-5.0); BUN/Creatinine Ratio 8.3; Bilirubin, Total 0.7 mg/dL (0.2-1.0); Calcium 8.2 mg/dL (8.5-10.1); Total Protein 6.7 g/dL (6.4-8.2)
[2019-08-31 06:26] LABS: INR 1.23 (0.9-1.15); Partial Thromboplastin Time 31.2 sec (23.64-32.05)
[2019-08-31] MEDS: InsuLIN REG 1unit/0.01ml Soln (100units/ml) SC SCH ×4 (06:47→22:00)
[2019-08-31] MEDS: INSULIN LANTUS (GLARGINE) 1 /0.01ml (100units/ml) SC SCH (06:48)
--- NOTE | 2019-08-31 08:15 | NUR ---
Opening Note Assumed care of patient, she is A & O x4, no s/s of distress at this time, patient is legally blind, per report and patient statement she fell in the ER bathroom last night. Patient is on fall precautions, bed alarm on. POC discussed with patient. She is comfortable at this time. Bed is in lowest, locked position, call light within reach. Will continue to monitor Q1h and PRN. Informed continuity coordinator, asked if patient can be moved closer to the nursing station for safety, no beds at this time. Patient is on isolation for history of MRSA. Will continue to monitor.
[2019-08-31 09:00] VITALS: BP 157/85
[2019-08-31] MEDS ORDERED: CLOPIDOGREL BISULFATE 75 MG TAB PO SCH (10:00)
[2019-08-31] MEDS ORDERED: PATIENTS OWN MEDICATION (B-Complex W/ C & Folic Acid (Nephro-Vite) 1 TAB) PO SCH (10:00)
--- NOTE | 2019-08-31 10:45 | NUR ---
Patient on Eliquis and Plavix Dr. Aguirre at bedside, hold paracentesis until patient off of meds for 3 days. Will continue to monitor.
[2019-08-31] MEDS: FAMOTIDINE 20 MG TAB PO SCH (10:49)
[2019-08-31] MEDS: ASPirin-EC 81 mg tab PO SCH (10:50)
[2019-08-31] MEDS: B-COMPLEX W/ C & FOLIC ACID(NEPHROVITE TAB) PO SCH (10:50)
[2019-08-31] MEDS: hydrALAZINE HCL 25 MG TAB PO SCH ×2 (10:51→22:00)
[2019-08-31] MEDS: LISINOPRIL 10 MG TAB PO SCH (10:51)
[2019-08-31] MEDS: CARVEDILOL 12.5 MG TAB PO SCH ×2 (10:51→22:26)
[2019-08-31] MEDS: ISOSORBIDE MONONITRATE ER 60 MG TAB PO SCH (10:53)
[2019-08-31] MEDS: amLODIPine BESYLATE 5 MG TAB PO SCH (10:54)
[2019-08-31] MEDS: FERROUS SULFATE 325 MG TAB PO SCH (12:29)
[2019-08-31 13:00] VITALS: BP 152/85
[2019-08-31 17:17] VITALS: BP 120/66
[2019-08-31] MEDS: AMITRIPTYLINE HCL 25 MG TAB PO SCH (18:48)
--- NOTE | 2019-08-31 19:25 | NUR ---
Opening Shift Note Report received from day shift RN. Assumed care of patient. Patient sitting in bed awake and A&O x4. No S/S of distress/SOB noted and denies pain at this time. Bed locked in the lowest position with bed rails up x2 and call light is left within reach of the patient. Instructed on POC and to call for assistance PRN. Will continue to monitor for changes q 1hr and PRN.
[2019-08-31 22:00] VITALS: BP 115/60
[2019-08-31] MEDS: ATORVASTATIN 20 MG TAB PO SCH (22:17)
[2019-09-01 05:50] VITALS: BP 131/72
[2019-09-01] MEDS: FUROSEMIDE 40 MG TAB PO SCH ×2 (06:21→18:14)
[2019-09-01] MEDS: ACCU-CHEK COMFORT CURVE STRIP VI SCH ×3 (06:22→18:08)
[2019-09-01] MEDS: INSULIN LANTUS (GLARGINE) 1 /0.01ml (100units/ml) SC SCH (06:22)
[2019-09-01] MEDS: SEVELAMER 800 MG TAB PO SCH ×2 (06:22→14:49)
[2019-09-01] MEDS: InsuLIN REG 1unit/0.01ml Soln (100units/ml) SC SCH ×4 (06:23→22:00)
[2019-09-01 09:00] VITALS: BP 136/78
[2019-09-01] MEDS: FAMOTIDINE 20 MG TAB PO SCH (10:04)
[2019-09-01] MEDS: ASPirin-EC 81 mg tab PO SCH (10:04)
[2019-09-01] MEDS: B-COMPLEX W/ C & FOLIC ACID(NEPHROVITE TAB) PO SCH (10:04)
--- NOTE | 2019-09-01 12:20 | NUR ---
Spoke to svp digital ad sales Patient dialysis is rescheduled to tomorrow per Dr. Randall, there was a critical patient that took priority. Will medicate with BP meds per orders.
[2019-09-01] MEDS: FERROUS SULFATE 325 MG TAB PO SCH (12:35)
[2019-09-01] MEDS: hydrALAZINE HCL 25 MG TAB PO SCH (12:36)
[2019-09-01] MEDS: LISINOPRIL 10 MG TAB PO SCH (12:36)
[2019-09-01] MEDS: amLODIPine BESYLATE 5 MG TAB PO SCH (12:37)
[2019-09-01] MEDS: ISOSORBIDE MONONITRATE ER 60 MG TAB PO SCH (12:37)
[2019-09-01] MEDS: CARVEDILOL 12.5 MG TAB PO SCH (12:38)
[2019-09-01 13:00] VITALS: BP 142/33
--- NOTE | 2019-09-01 14:45 | NUR ---
Dr. Alvarez at bedside. Informed doctor of MRSA positive labs, will await orders.
[2019-09-01 17:07] VITALS: BP 125/71
[2019-09-01] MEDS: AMITRIPTYLINE HCL 25 MG TAB PO SCH (18:14)
--- NOTE | 2019-09-01 19:30 | NUR ---
received pt from day rn poc reviewed, pt observed sitting on side of bed tele off, placed back in bed reconnected tele and reset bed alarm , reoriented pt to nurse call light and poc pt appears to be disoriented, reminded pt to call for assistance before attempting to get oob, pt is blind
[2019-09-01 22:00] VITALS: BP 116/63
[2019-09-02] MEDS: MUPIROCIN 2% OINT 15gm or 22gm EACHNOSTRI SCH ×3 (00:19→22:12)
[2019-09-02] MEDS: hydrALAZINE HCL 25 MG TAB PO SCH ×3 (00:20→22:12)
[2019-09-02] MEDS: CARVEDILOL 12.5 MG TAB PO SCH ×3 (00:21→22:13)
[2019-09-02] MEDS: SEVELAMER 800 MG TAB PO SCH ×4 (00:22→22:13)
[2019-09-02] MEDS: ATORVASTATIN 20 MG TAB PO SCH ×2 (00:22→22:13)
[2019-09-02] MEDS: ACCU-CHEK COMFORT CURVE STRIP VI SCH ×5 (00:23→22:13)
[2019-09-02 05:00] VITALS: BP 120/62
[2019-09-02 06:22] LABS: BUN/Creatinine Ratio 9.8; Calcium 7.9 mg/dL (8.5-10.1)
[2019-09-02] MEDS: InsuLIN REG 1unit/0.01ml Soln (100units/ml) SC SCH ×4 (06:24→22:13)
[2019-09-02] MEDS: INSULIN LANTUS (GLARGINE) 1 /0.01ml (100units/ml) SC SCH (06:24)
[2019-09-02] MEDS: FUROSEMIDE 40 MG TAB PO SCH ×2 (06:27→17:51)
[2019-09-02 07:04] LABS: Potassium 5.6 mmol/L (3.5-5.1)
[2019-09-02 09:00] VITALS: BP 117/62
[2019-09-02] MEDS: ISOSORBIDE MONONITRATE ER 60 MG TAB PO SCH (10:00)
[2019-09-02] MEDS: amLODIPine BESYLATE 5 MG TAB PO SCH (10:00)
[2019-09-02] MEDS: LISINOPRIL 10 MG TAB PO SCH (10:00)
[2019-09-02] MEDS: B-COMPLEX W/ C & FOLIC ACID(NEPHROVITE TAB) PO SCH (10:21)
[2019-09-02] MEDS: FAMOTIDINE 20 MG TAB PO SCH (10:21)
[2019-09-02] MEDS: ASPirin-EC 81 mg tab PO SCH (10:21)
--- NOTE | 2019-09-02 10:30 | NUR ---
Dialysis Nurse at bedside.
[2019-09-02] MEDS: FERROUS SULFATE 325 MG TAB PO SCH (11:28)
[2019-09-02 13:00] VITALS: BP 163/80
--- NOTE | 2019-09-02 13:47 | NUR ---
Dialysis finished Per report from lens block gauger. Patient BP 151/74, HR 76, removed 3L fluid, can take off dressing between [id number]. Patient tolerated procedure well.
--- NOTE | 2019-09-02 15:52 | NUR ---
NUTRITION ASSESSMENT NOTES Please refer to link notes of nutrition screen form filed under the intervention section of the plan of care for further details. Est. Needs: 1400 kcal to 1750 kcal (20-25 kcal/kgBW), 70 gms to 98 gms pro (1.0-1.4 gms/kgBW d/t ESRD on HD). Will continue to monitor pertinent labs and reassess nutrient need prn Thank you. Addendum: 09/02/19 at [address] Amended: Links added.
--- NOTE | 2019-09-02 16:00 | NUR ---
Spoke to Dr. Alvarez Informed doctor of patient positive UA, there have been no antibiotics ordered or cultures. Orders for urine culture, read back and verified.
[2019-09-02 17:00] VITALS: BP 143/79
--- NOTE | 2019-09-02 17:00 | NUR ---
Removed dialysis pressure dressing Left upper arm. Thrill felt, bruit auscultated, band-aid placed over scabs.
[2019-09-02] MEDS: AMITRIPTYLINE HCL 25 MG TAB PO SCH (17:51)
--- NOTE | 2019-09-02 19:40 | NUR ---
Opening Shift Note Assumed care of patient, awake and alert. No S/S of distress/SOB or pain. Instructed on POC and to call for assist PRN. Bed in lowest locked position, call light within reach, side rails up x2, fall precautions in place. Will continue to monitor for changes Q1hr and PRN.
[2019-09-02 22:00] VITALS: BP 120/66
[2019-09-03 04:59] LABS: BUN/Creatinine Ratio 8.2; Calcium 7.8 mg/dL (8.5-10.1); Potassium 4.6 mmol/L (3.5-5.1)
[2019-09-03 05:00] VITALS: BP 125/69
[2019-09-03] MEDS: INSULIN LANTUS (GLARGINE) 1 /0.01ml (100units/ml) SC SCH (06:43)
[2019-09-03] MEDS: InsuLIN REG 1unit/0.01ml Soln (100units/ml) SC SCH ×3 (06:43→17:00)
[2019-09-03] MEDS: ACCU-CHEK COMFORT CURVE STRIP VI SCH ×3 (06:43→17:00)
[2019-09-03] MEDS: FUROSEMIDE 40 MG TAB PO SCH ×2 (06:43→18:00)
[2019-09-03] MEDS: SEVELAMER 800 MG TAB PO SCH ×2 (06:43→12:52)
[2019-09-03 08:00] VITALS: BP 152/76
[2019-09-03] MEDS: LISINOPRIL 10 MG TAB PO SCH (08:58)
[2019-09-03] MEDS: ASPirin-EC 81 mg tab PO SCH (08:58)
[2019-09-03] MEDS: hydrALAZINE HCL 25 MG TAB PO SCH (08:58)
[2019-09-03] MEDS: B-COMPLEX W/ C & FOLIC ACID(NEPHROVITE TAB) PO SCH (08:58)
[2019-09-03] MEDS: FAMOTIDINE 20 MG TAB PO SCH (08:59)
[2019-09-03] MEDS: ISOSORBIDE MONONITRATE ER 60 MG TAB PO SCH (08:59)
[2019-09-03 09:00] VITALS: BP 152/76
[2019-09-03] MEDS: amLODIPine BESYLATE 5 MG TAB PO SCH (09:00)
[2019-09-03] MEDS: CARVEDILOL 12.5 MG TAB PO SCH (09:00)
[2019-09-03] MEDS: MUPIROCIN 2% OINT 15gm or 22gm EACHNOSTRI SCH (09:02)
--- NOTE | 2019-09-03 10:18 | NUR ---
Gathered paracentesis supplies, at bedside. cardiac cath lab radiology technologist at bedside, awaiting for MD patient is calm sitting up in bed with no s/ s of distress/sob noted/stated.
--- NOTE | 2019-09-03 10:34 | NUR ---
PARACENTESIS PROCEDURE STARTED WITH DR GARRIDO AT BEDSIDE. VITALS: BP143/71, HR 78, SPO2 97, RR18. PATIENT IS CALMLY LAYING DOWN IN BED.
--- NOTE | 2019-09-03 10:49 | NUR ---
PARACENTESIS PROCEDURE AT BEDSIDE, VITALS BP 148/72, HR 79, RR 17, SPO2 96%. NO S/S OF DISTRESS/SOB NOTED/ STATED.
--- NOTE | 2019-09-03 10:57 | NUR ---
PARACENTESIS PROCEDURE COMPLETED. COLLECTED A TOTAL OF 3 L OF ANDREINA COLORED FLUID, NO S/S OF DISTRESS/SOB NOTED STATED. NO C/O PAIN. CATHETER REMOVED BY AUDIOLOGY ASSISTANT WITHOUT ANY DIFFICULTY, STERILE GAUZE AND BANDAGE PLACED AT RIGHT MEDIAL/LOWER ABDOMEN. VERY MINIMAL BLEEDING NOTED UNDER BANDAGE. WILL CONTINUE TO MONITOR. BED AT LOWEST LOCKED POSITION AND SIDE RAILS UP X2, CALL LIGHT WITHIN REACH. PATIENT COMFORTABLY RESTING IN BED.
--- NOTE | 2019-09-03 11:31 | NUR ---
CALLED NEXT OF KIN, TO NOTIFY HIM THAT SHE WILL BE DISCHARGED TODAY. NO ANSWER, LEFT A MESSAGE AND [facility] NUMBER.
[2019-09-03 12:48] VITALS: BP 149/76
[2019-09-03] MEDS: FERROUS SULFATE 325 MG TAB PO SCH (12:52)
--- NOTE | 2019-09-03 13:20 | NUR ---
PATIENT WAS ATTEMPTING TO LEAVE HER ROOM, WALKED PATIENT BACK TO CHAIR TO SIT. PATIENT STATES" I WANT TO GO HOME" AND IS UPSET THAT TRANSPORTATION IS TAKING SO LONG TO PICK HER UP. STUDENT SERVICE STATION HELPER NURSE AND I EXPLAINED TO HER THAT THERE IS A PROCESS TO GETTING TRANSPORTATION SET UP AND ASKED HER TO BE PATIENT, WE ARE WORKING ON IT. PATIENT IS CURRENTLY SITTING UP IN THE CHAIR, NO S/S OF SOB/PAIN STATED. PATIENT ROOM LIGHTS ON, BED AT LOWEST POSITION AND CALL LIGHT WITH PATIENT. EDUCATION PROVIDED TO USE THE CALL LIGHT AND ASK FOR HELP. WILL CONTINUE TO MONITOR.
--- NOTE | 2019-09-03 13:31 | NUR ---
PATIENT IS REFUSING TO WEAR TELE MONITOR. COLLECTED TELE BOX, WILL SEND UP TO TERRAZZO WORKER ROOM.
[2019-09-03 16:30] VITALS: BP 149/76
--- NOTE | 2019-09-03 16:47 | NUR ---
Discharge planning per SS consult, patient has orders to arrange for transportation home. Called the nurse Jodi to inquire of ambulation status and advise of transportation arrangements, and she advised that she spoke with the son Bart Cesar and he provided the password [id number] and he advised that he would pick his mother up for discharge in approximately one hour.
--- NOTE | 2019-09-03 17:50 | NUR ---
Discharge instructions given as ordered. Encourage to follow up with PMD as instructed. All questions and concerns addressed. Patient and family verbalized understanding. Medication reconciliation form completed and copy given to patient. IV removed with catheter intact, pressure dressing applied. Telemetry unit returned to ICU. Patient taken to vehicle via wheelchair with all personal belongings, accompanied by staff , and son Bart (son). No distress noted at time of departure.
[2019-09-03] MEDS: AMITRIPTYLINE HCL 25 MG TAB PO SCH (18:00)
== END 2019-09-03 17:41 | disposition home or self-care (01) | DRG 432 ==
LOC: ER 08:49 → TELE 08:50 → TELE-WESTW 17:00
PROVIDERS: ADMIT Internal Medicine; ATTEND Internal Medicine
PROC: 5A1D70Z Performance of Urinary Filtration, Intermittent, Less than 6 Hours Per Day (ICD-10-PCS; 2019-09-02)
PROC: 0W9G3ZZ Drainage of Peritoneal Cavity, Percutaneous Approach (ICD-10-PCS; principal; 2019-09-03)
DX: K74.60 Unspecified cirrhosis of liver (principal); N18.6 End stage renal disease; R18.8 Other ascites; Z99.2 Dependence on renal dialysis; E11.65 Type 2 diabetes mellitus with hyperglycemia; D63.1 Anemia in chronic kidney disease; E11.22 Type 2 diabetes mellitus with diabetic chronic kidney disease; Z79.01 Long term (current) use of anticoagulants; E87.5 Hyperkalemia; I25.10 Atherosclerotic heart disease of native coronary artery without angina pectoris; Z79.899 Other long term (current) drug therapy; Z79.82 Long term (current) use of aspirin; Z79.4 Long term (current) use of insulin
CPT/HCPCS: 10022; 36415; 49083; 76705; 76942; 80048; 80053; 81001; 82140; 82150; 82962; 83036; 83690; 84132; 85007; 85027; 85610; 85730; 87081; 90935; 93005; 99291; G0378; J1815

== ENCOUNTER → 2019-12-13 | Emergency (ER) | payer MEDICARE, MEDICAID ==
[~2019-12-13] VITALS: Ht 162.6 cm; Wt 64.9 kg
[~2019-12-13] MED LIST changes: +AMIT25TA9 PO; -AMIT75TA2 PO; -AMLO10TA13 PO; -ASP81EC PO; -ASPI81CH4 PO; -ATO40T PO; -CAR125T PO; -FURO40TA4 PO; -HYD25T PO; -NEPVITT PO; -PANT1INJ3 PO
[2019-12-13 14:11] LABS: Basophils # (auto) 0.1 10 ^3/uL (0-0.2); Basophils % (auto) 1.3 % (0.0-2.0); Eosinophils # (auto) 0.5 10 ^3/uL (0-0.8); Eosinophils % (auto) 8.9 % (0.0-7.0); Hematocrit 36.9 % (36.0-46.0); Hemoglobin 12.2 g/dL (12.2-16.2); Lymphocytes # (auto) 0.7 10 ^3/uL (0.4-5.4); Lymphocytes % (auto) 12.3 % (10.0-50.0); Mean Corpuscular Hemoglobin 32.9 pg (28.0-32.0); Mean Corpuscular Volume 99.8 fL (80.0-100.0); Monocytes # (auto) 0.6 10 ^3/uL (0-1.3); Neutrophils # (auto) 3.8 10 ^3/uL (1.6-8.6); Neutrophils % (auto) 67.5 % (37.0-80.0); Platelet Count (auto) 174 10^3/uL (140-450); Red Cell Distribution Width 13.9 % (11.8-14.3); White Blood Cell 5.6 10^3/uL (4.4-10.8)
[2019-12-13 14:36] LABS: Albumin 2.4 g/dL (3.4-5.0); Calcium 8.1 mg/dL (8.5-10.1); Potassium 4.8 mmol/L (3.5-5.1)
[2019-12-13 14:40] LABS: BUN/Creatinine Ratio 8.6; Bilirubin, Total 0.5 mg/dL (0.2-1.0); Total Protein 6.5 g/dL (6.4-8.2)
[2019-12-13 17:53] LABS: Urine Bacteria FEW /hpf (None Seen); Urine Blood TRACE /uL (Negative); Urine Hyaline Cast FEW /lpf (0 - 2); Urine Specific Gravity 1.016 (1.001-1.035); Urine WBC 7 /hpf (0 - 5)
[2019-12-13 18:16] VITALS: BP 177/92
== END | disposition home or self-care (01) ==
LOC: ER 11:27
DX: E11.22 Type 2 diabetes mellitus with diabetic chronic kidney disease (principal); I13.2 Hypertensive heart and chronic kidney disease with heart failure and with stage 5 chronic kidney disease, or end stage renal disease; I50.9 Heart failure, unspecified; N18.6 End stage renal disease; K74.60 Unspecified cirrhosis of liver; N39.0 Urinary tract infection, site not specified; E78.5 Hyperlipidemia, unspecified; Z79.4 Long term (current) use of insulin; Z79.899 Other long term (current) drug therapy
CPT/HCPCS: 36415; 73560; 76942; 80053; 81001; 85025; 93005; 99285; C1729; 10022

== ENCOUNTER → 2019-12-25 | Outpatient (CLI) | payer MEDICARE, MEDICAID ==
[2019-12-25 12:00] VITALS: BP 152/86
--- NOTE | 2019-12-25 12:00 | NUR ---
CHF PT SENT FROM BACK OFFICE FOR ADD ON PREOP. VSS PT A/O X 4 0 DISTRESS
[2019-12-25 12:20] VITALS: BP 177/55
--- NOTE | 2019-12-25 12:20 | NUR ---
Pre-Op Discharge Summary: See e-MAR for any medications given for this visit. Pre-op orders received and carried out per MD of EKG, LABS and chest xrays. Patient given a copy of EKG with instructions to go to [facility] out patient for further follow up care.
[2019-12-25 15:53] LABS: Basophils # (auto) 0.1 10 ^3/uL (0-0.2); Basophils % (auto) 1.2 % (0.0-2.0); Eosinophils # (auto) 0.6 10 ^3/uL (0-0.8); Eosinophils % (auto) 7.4 % (0.0-7.0); Hematocrit 41.4 % (36.0-46.0); Hemoglobin 13.8 g/dL (12.2-16.2); Lymphocytes # (auto) 0.7 10 ^3/uL (0.4-5.4); Lymphocytes % (auto) 9.5 % (10.0-50.0); Mean Corpuscular Hemoglobin 33.1 pg (28.0-32.0); Mean Corpuscular Hgb Conc. 33.3 g/dL (32.0-36.0); Mean Corpuscular Volume 99.6 fL (80.0-100.0); Monocytes # (auto) 0.5 10 ^3/uL (0-1.3); Monocytes % (auto) 6.8 % (0.0-12.0); Neutrophils # (auto) 5.7 10 ^3/uL (1.6-8.6); Neutrophils % (auto) 75.1 % (37.0-80.0); Platelet Count (auto) 184 10^3/uL (140-450); Red Blood Cells 4.15 10^6/uL (4.0-5.20); Red Cell Distribution Width 13.6 % (11.8-14.3); White Blood Cell 7.6 10^3/uL (4.4-10.8)
[2019-12-25 16:09] LABS: BUN/Creatinine Ratio 11.7; Calcium 8.8 mg/dL (8.5-10.1); Potassium 4.7 mmol/L (3.5-5.1)
[2019-12-25 16:19] LABS: INR 1.09 (0.9-1.15); Partial Thromboplastin Time 28.3 sec (23.64-32.05)
== END | disposition home or self-care (01) ==
LOC: Rad HDHVI 11:30
PROVIDERS: ATTEND Internal Medicine
DX: Z01.82 Encounter for allergy testing (principal); R09.89 Other specified symptoms and signs involving the circulatory and respiratory systems; I51.7 Cardiomegaly
CPT/HCPCS: 36415; 71046; 80048; 85025; 85610; 85730; 93005; G0463

== ENCOUNTER 2019-12-27 07:28 | Day surgery (SDC) | payer MEDICARE, MEDICAID ==
[2019-12-27] MEDS ORDERED: hydrALAZINE HCL 25 MG TAB PO ONE (12:00)
== END 2019-12-27 13:01 | disposition home or self-care (01) ==
LOC: CATH 07:28
PROVIDERS: ATTEND Internal Medicine Cardiovascular Disease
DX: R18.8 Other ascites (principal); I50.9 Heart failure, unspecified; Z98.890 Other specified postprocedural states
CPT/HCPCS: 49083; 76942; 87205; 89051

== ENCOUNTER 2020-01-10 11:24 | Inpatient (IN) | payer MEDICARE, MEDICAID ==
[~2020-01-10] VITALS: Ht 162.6 cm; Wt 66.7 kg
[2020-01-10 13:04] LABS: Basophils # (auto) 0.1 10 ^3/uL (0-0.2); Basophils % (auto) 1.3 % (0.0-2.0); Eosinophils # (auto) 0.6 10 ^3/uL (0-0.8); Eosinophils % (auto) 9.3 % (0.0-7.0); Hematocrit 39.2 % (36.0-46.0); Hemoglobin 12.9 g/dL (12.2-16.2); Lymphocytes # (auto) 0.5 10 ^3/uL (0.4-5.4); Mean Corpuscular Hemoglobin 33.1 pg (28.0-32.0); Mean Corpuscular Hgb Conc. 32.9 g/dL (32.0-36.0); Mean Corpuscular Volume 100.8 fL (80.0-100.0); Monocytes # (auto) 0.4 10 ^3/uL (0-1.3); Monocytes % (auto) 6.4 % (0.0-12.0); Neutrophils # (auto) 4.5 10 ^3/uL (1.6-8.6); Nucleated Red Blood Cells % 0.1 %; Platelet Count (auto) 163 10^3/uL (140-450); Red Blood Cells 3.89 10^6/uL (4.0-5.20); Red Cell Distribution Width 14.3 % (11.8-14.3); White Blood Cell 6.1 10^3/uL (4.4-10.8)
[2020-01-10 13:29] LABS: Alanine Aminotransferase 19 U/L (13-56); Albumin 2.6 g/dL (3.4-5.0); Anion Gap 9 (5-15); Aspartate Aminotransferase 15 U/L (15-37); BUN/Creatinine Ratio 9.3; Blood Alcohol < 3.0 mg/dL (0-5); Blood Urea Nitrogen 31 mg/dL (7-18); Carbon Dioxide 28 mmol/L (21-32); Chloride 98 mmol/L (98-107); GFR African American 18 mL/min; GFR Non-African American 15 mL/min; Glucose 321 mg/dL (74-106); Potassium 4.5 mmol/L (3.5-5.1); Sodium 135 mmol/L (136-145)
[2020-01-10 13:32] LABS: Alkaline Phosphatase 381 U/L (45-117); Bilirubin, Total 0.7 mg/dL (0.2-1.0); Total Protein 6.5 g/dL (6.4-8.2)
[2020-01-10 14:45] LABS: INR 1.18 (0.9-1.15); Partial Thromboplastin Time 27.8 sec (23.64-32.05)
[2020-01-10] MEDS ORDERED: MORPHINE SULF INJ 2 MG/ML SYRINGE 1ML IV PRN ×2 (14:45→15:15)
[2020-01-10] MEDS ORDERED: NITROGLYCERIN 0.4 MG SL TAB SL PRN (14:45)
[2020-01-10] MEDS ORDERED: ACETAMINOPHEN 500 MG TAB PO PRN (15:15)
[2020-01-10] MEDS ORDERED: PROMETHAZINE HCL 25 MG/ML 1ML IV PRN (15:15)
[2020-01-10] MEDS ORDERED: ALBUTEROL SULF 2.5 MG/0.5ML(0.5%) NEB SOLN NEB PRN (15:15)
--- NOTE | 2020-01-10 15:41 | NUR ---
Telemetry admit from PINO BRITTON admitted to Telemetry unit after report received. Patient oriented to DAYAMI UMANA RN primary RN, unit, room, bed, and unit policies regarding patient care and visiting hours. Patient now on continuous telemetry monitoring, tele box #67 and telemetry reading on arrival to unit is sinus rhythm. Patient weighed by bedscale and encouraged to call if they need something. All questions and concerns addressed, patient verbalized understanding.
[2020-01-10 16:25] VITALS: BP 156/76
--- NOTE | 2020-01-10 17:00 | NUR ---
Home Meds Reviewed home meds with patient. Patient states she still takes all listed medications.
[2020-01-10] MEDS: cefTRIAXone 1GM/50ML D5W 50 ML IV SCH (17:18)
[2020-01-10] MEDS: InsuLIN REG 1unit/0.01ml Soln (100units/ml) SC SCH ×2 (17:46→19:48)
[2020-01-10] MEDS: INSULIN LANTUS (GLARGINE) 1 /0.01ml (100units/ml) SC SCH (17:46)
[2020-01-10] MEDS: ACCU-CHEK COMFORT CURVE STRIP VI SCH ×2 (17:47→19:46)
[2020-01-10] MEDS: FUROSEMIDE 100 MG/10ML VIAL IV SCH (17:48)
[2020-01-10] MEDS: AZITHROMYCIN 500MG/ 250ML 250 ML IV SCH (17:54)
[2020-01-10] MEDS ORDERED: InsuLIN REG 1unit/0.01ml Soln (100units/ml) SC SCH (18:00)
[2020-01-10] MEDS: ALBUTEROL SULF 2.5 MG/0.5ML(0.5%) NEB SOLN NEB SCH (18:00)
[2020-01-10] MEDS ORDERED: CARVEDILOL 12.5 MG TAB PO SCH (18:00)
[2020-01-10] MEDS: AMITRIPTYLINE HCL 25 MG TAB PO SCH (18:01)
[2020-01-10] MEDS: IPRATROPIUM BROM 0.5 MG/2.5ML INH SOL NEB SCH (18:01)
[2020-01-10] MEDS: SEVELAMER 800 MG TAB PO SCH (18:01)
--- NOTE | 2020-01-10 18:40 | NUR ---
IV pain Patient is requesting IV site be changed because it is "too uncomfortable." IV site is not red, swollen. IV site is flushing. Turned down piggyback that is currently running to see if it eases patient's discomfort.
--- NOTE | 2020-01-10 18:50 | NUR ---
Checking IV site Patient is resting with eyes closed, appears to be asleep. Patient no longer seems to be in any pain.
--- NOTE | 2020-01-10 19:12 | NUR ---
Closing Shift Note Patient resting in bed. No distress noted. Report given. Will endorse care to the senior underwriting assistant RN.
--- NOTE | 2020-01-10 19:30 | NUR ---
OPENING NOTE REPORT RECEIVED FROM DAY SHIFT RN PATIENT IS A/OX4 RESTING IN BED. PATIENT IS LEGALLY BLIND AND HARD OF HEARING. PHYSICAL ASSESSMENT DONE- SEE INTERVENTIONS. PATIENT C/O PAIN TO RIGHT FINGER IV, PATIENT REQUESTS FOR NEW IV LINE PLACEMENT. DIALYSIS FISTULA NOTED TO LEFT UPPER ARM, BRUIT AND THRILL PRESENT. POC DISCUSSED, ALL QUESTIONS ANSWERED. WILL MONITOR Q1H PRN THROUGHOUT SHIFT, CALL LIGHT WITHIN REACH, FALL PRECAUTIONS IN PLACE.
--- NOTE | 2020-01-10 19:45 | NUR ---
IV removal TO RIGHT FINGER PER PATIENT REQUEST IV DC'd with clean sterile technique, catheter fully intact. Pressure dressing applied to site. Patient tolerated well.
--- NOTE | 2020-01-10 20:00 | NUR ---
IV insertion IV access obtained, via clean sterile technique by inserting 22 gauge catheter at RIGHT FOREARM after 1 attempt. IV secured properly. No trauma to site. Patient tolerated well.
[2020-01-10 21:00] VITALS: BP 142/79
[2020-01-10 21:59] VITALS: BP 156/76
[2020-01-10] MEDS: ATORVASTATIN 20 MG TAB PO SCH (22:20)
[2020-01-10] MEDS: FAMOTIDINE 20 MG TAB PO SCH (22:20)
[2020-01-10] MEDS: APIXABAN 2.5 MG TAB PO SCH (22:21)
[2020-01-10] MEDS: hydrALAZINE HCL 25 MG TAB PO SCH (22:21)
--- NOTE | 2020-01-10 23:00 | NUR ---
BLOOD GLUCOSE PATIENT STATES SHE FELT LIKE HER BLOOD SUGAR IS GETTING LOW. ACCU CHECK DONE. BLOOD GLUCOSE AT 120 WILL CONTINUE TO MONITOR
--- NOTE | 2020-01-11 | NUR ---
MIDNIGHT ACCU CHECK AT 100 PATIENT STATES SHE FEELS "LOW". SNACKS PROVIDED TO PATIENT INCLUDING A JUICE, CRACKERS AND A JELLO. PATIENT ABLE TO EAT ALL SNACKS PROVIDED.
[2020-01-11] MEDS: ACCU-CHEK COMFORT CURVE STRIP VI SCH ×7 (00:01→23:35)
[2020-01-11] MEDS: InsuLIN REG 1unit/0.01ml Soln (100units/ml) SC SCH ×7 (04:00→23:36)
[2020-01-11 04:57] LABS: Urine Bacteria FEW /hpf (None Seen); Urine Blood Negative /uL (Negative); Urine Specific Gravity 1.013 (1.001-1.035); Urine WBC 30 /hpf (0 - 5)
[2020-01-11 05:00] VITALS: BP 155/87
[2020-01-11 05:08] LABS: Amphetamine Screen, Urine NEGATIVE (NEGATIVE); Barbiturate Scree,Urine NEGATIVE (NEGATIVE); Benzodiazephine Screen, Urine NEGATIVE (NEGATIVE); Cannabinoid Screen, Urine NEGATIVE (NEGATIVE); Cocaine Screen, Urine NEGATIVE (NEGATIVE); Opiate Scree,Urine NEGATIVE (NEGATIVE); Phencyclidine Screen, Urine NEGATIVE (NEGATIVE)
--- NOTE | 2020-01-11 05:24 | NUR ---
ROUTINE EKG DONE ORDERED BY MD FOR CHF PLACED IN HARD CHART FOR MD TO SIGN
[2020-01-11] MEDS: FUROSEMIDE 100 MG/10ML VIAL IV SCH ×2 (06:12→17:38)
[2020-01-11] MEDS: INSULIN LANTUS (GLARGINE) 1 /0.01ml (100units/ml) SC SCH (06:12)
--- NOTE | 2020-01-11 06:16 | NUR ---
MED REFUSAL PATIENT REFUSED AM DOSE OF LANTUS. BLOOD SUGAR 129 THIS AM. EDUCATED PATIENT ON THE IMPORTANCE OF GLUCOSE CONTROL. PATIENT STATES THAT SHE RECEIVED LANTUS YESTERDAY EVENING AND THAT HER BLOOD SUGAR FELT LIKE IT DROPPED TOO LOW DURING THE NIGHT. PATIENT DOES NOT WANT ANYMORE LANTUS AT THIS TIME
--- NOTE | 2020-01-11 06:45 | NUR ---
LAB CALLED AND SPOKE TO [facility] CRYSTAL RE: 0600 LABS PER CRYSTAL, "I WILL SEND SOMEONE UP SHORTLY"
--- NOTE | 2020-01-11 06:47 | NUR ---
CLOSING PATIENT IS RESTING COMFORTABLY IN BED. NO S/S OF DISTRESS. PATIENT PENDING FOR PARACENTESIS TODAY. CALL LIGHT WITHIN REACH, FALL PRECAUTIONS IN PLACE. WILL ENDORSE CARE TO DAYSHIFT RN
--- NOTE | 2020-01-11 07:00 | NUR ---
OPENING SHIFT NOTE ASSUMED CARE OF PATIENT FROM INSTRUCTOR TECHNICAL TRAINING LAVERNE WATERS. PATIENT HAS NO S/S OF DISTRESS/SOB OR PAIN. INSTRUCTED PATIENT ON POC, PATIENT VERBALIZED UNDERSTANDING. BED IS IN LOWEST POSITION WITH SIDE RAILS RAISED X2, BED WHEELS LOCKED, AND CALL LIGHT IS WITHIN REACH. WILL CONTINUE TO MONITOR.
[2020-01-11] MEDS: IPRATROPIUM BROM 0.5 MG/2.5ML INH SOL NEB SCH ×3 (07:05→18:38)
[2020-01-11] MEDS: ALBUTEROL SULF 2.5 MG/0.5ML(0.5%) NEB SOLN NEB SCH ×3 (07:06→18:38)
[2020-01-11] MEDS: SEVELAMER 800 MG TAB PO SCH ×3 (07:38→17:37)
--- NOTE | 2020-01-11 08:34 | NUR ---
UNABLE TO DO PARACENTESIS TODAY DUE TO PT BEING ON ELIQUIS AND PLAVIX.
[2020-01-11 09:00] VITALS: BP 154/86
[2020-01-11] MEDS: cefTRIAXone 1GM/50ML D5W 50 ML IV SCH (09:14)
[2020-01-11] MEDS: hydrALAZINE HCL 25 MG TAB PO SCH ×2 (09:15→21:11)
[2020-01-11] MEDS: LISINOPRIL 10 MG TAB PO SCH (09:16)
[2020-01-11] MEDS: FERROUS SULFATE 325 MG TAB PO SCH (09:16)
[2020-01-11] MEDS: AZITHROMYCIN 500MG/ 250ML 250 ML IV SCH (09:53)
[2020-01-11] MEDS: APIXABAN 2.5 MG TAB PO SCH ×2 (09:57→21:12)
[2020-01-11] MEDS ORDERED: ISOSORBIDE MONONITRATE ER 60 MG TAB PO SCH (10:00)
[2020-01-11] MEDS ORDERED: CLOPIDOGREL BISULFATE 75 MG TAB PO SCH (10:00)
--- NOTE | 2020-01-11 12:30 | NUR ---
MD CAMERON AT BEDSIDE UPDATED MD ON PATIENT'S STATUS, INCLUDING TROPONIN LEVEL AND INFORMED MD ELIQUIS AND PLAVIX WERE HELD, SO PATIENT CAN HAVE PARACENTESIS. PER MD CANCEL PARACENTESIS AND MD ORDERED CARDIO CONSULT. WILL FOLLOW THROUGH WITH ORDERS.
[2020-01-11] MEDS ORDERED: ACETAMINOPHEN 500 MG TAB PO PRN (12:45)
[2020-01-11 13:00] VITALS: BP 120/75
--- NOTE | 2020-01-11 14:12 | NUR ---
SPOKE WITH DR. COLEMAN PER THEY WILL TRY TO DO DIALYSIS TODAY, IF NOT HE WILL PUT IN ORDERS FOR DIALYSIS FOR TOMORROW.
[2020-01-11] MEDS: traMADol HCL 50 MG TAB PO PRN (15:36)
[2020-01-11 17:00] VITALS: BP 147/80
[2020-01-11] MEDS: CARVEDILOL 12.5 MG TAB PO SCH (17:38)
[2020-01-11] MEDS: AMITRIPTYLINE HCL 25 MG TAB PO SCH (17:38)
--- NOTE | 2020-01-11 19:15 | NUR ---
opening note pt aox4. pt denies pain or discomfort at this time. respirations are even and non labored on room air. pt is legally blind. pt is ambulatory with assistance. pt currently dangling at the bedside. bed in low locked position, call light within reach.
--- NOTE | 2020-01-11 19:17 | NUR ---
CLOSING SHIFT NOTE ENDORSED CARE TO BRIDGE MANAGER LAVERNE KEN. PATIENT HAS NO S/S OF DISTRESS/SOB OR PAIN AT THIS TIME.
[2020-01-11 21:00] VITALS: BP 137/69
[2020-01-11] MEDS: TEMAZEPAM 15 MG CAP PO PRN (21:12)
[2020-01-11] MEDS: ATORVASTATIN 20 MG TAB PO SCH (21:12)
[2020-01-11] MEDS: FAMOTIDINE 20 MG TAB PO SCH (21:12)
--- NOTE | 2020-01-12 03:09 | NUR ---
pt up to bathroom w/ nurse aid assistance
[2020-01-12] MEDS: ACCU-CHEK COMFORT CURVE STRIP VI SCH ×5 (03:31→20:14)
[2020-01-12] MEDS: InsuLIN REG 1unit/0.01ml Soln (100units/ml) SC SCH ×5 (03:32→20:15)
--- NOTE | 2020-01-12 04:15 | NUR ---
IV infiltrated at right forearm, removed catheter, all pieces intact, pt tolerated well.
[2020-01-12 05:00] VITALS: BP 137/75
--- NOTE | 2020-01-12 05:00 | NUR ---
IV New IV access obtained at the right wrist, 22g, pt tolerated insertion well.
--- NOTE | 2020-01-12 05:18 | NUR ---
pain pt requesting pain medication for head ache, rating of 5/10. pt will be medicated appropriately.
[2020-01-12] MEDS: FUROSEMIDE 100 MG/10ML VIAL IV SCH ×2 (05:19→17:48)
[2020-01-12] MEDS: traMADol HCL 50 MG TAB PO PRN (05:27)
[2020-01-12] MEDS: INSULIN LANTUS (GLARGINE) 1 /0.01ml (100units/ml) SC SCH (06:31)
--- NOTE | 2020-01-12 06:48 | NUR ---
pt currently dangling at bedside. A&O to person and place. pt denies pain or discomfort at this time. respiration even and nonlabored on room air. bed in low locked position, call light within reach.
[2020-01-12] MEDS: ALBUTEROL SULF 2.5 MG/0.5ML(0.5%) NEB SOLN NEB SCH ×4 (06:49→18:41)
[2020-01-12] MEDS: IPRATROPIUM BROM 0.5 MG/2.5ML INH SOL NEB SCH ×4 (06:52→18:41)
[2020-01-12 06:57] LABS: BUN/Creatinine Ratio 10.9; Calcium 8.2 mg/dL (8.5-10.1); Potassium 5.5 mmol/L (3.5-5.1)
--- NOTE | 2020-01-12 07:10 | NUR ---
OPENING SHIFT NOTE ASSUMED CARE OF PATIENT FROM CLERICAL SUPPORT SPECIALIST LAVERNE KEN. PATIENT IS AWAKE AND ALERT X4. PATIENT HAS NO S/S OF DISTRESS/SOB OR PAIN. INSTRUCTED PATIENT ON POC, PATIENT VERBALIZED UNDERSTANDING. BED IS IN LOWEST POSITION WITH SIDE RAILS RAISED X2, BED WHEELS LOCKED, AND CALL LIGHT IS WITHIN REACH. WILL CONTINUE TO MONITOR.
--- NOTE | 2020-01-12 07:28 | NUR ---
CALLED [facility] REGARDING PATIENT'S DIALYSIS. THEY ARE PAGING THE FACILITY SERVICE ASSOCIATE DOCTOR AWAITING CALL BACK.
[2020-01-12] MEDS: SEVELAMER 800 MG TAB PO SCH ×3 (07:59→17:49)
[2020-01-12] MEDS: cefTRIAXone 1GM/50ML D5W 50 ML IV SCH (07:59)
[2020-01-12] MEDS: CARVEDILOL 12.5 MG TAB PO SCH ×2 (08:00→17:49)
[2020-01-12 09:00] VITALS: BP 135/74
--- NOTE | 2020-01-12 10:14 | NUR ---
MD CAMERON AT BEDSIDE UPDATED MD ON PATIENT'S STATUS INCLUDING POTASSIUM LEVEL AND PATIENT STATES HER ABDOMEN IS TIGHT, MD IS AWARE AND ORDERED ULTRASOUND OF ABDOMEN AND PARACENTESIS FOR TUESDAY. INFORMED MD PATIENT HAD ELIQUIS LAST NIGHT, MD IS AWARE. PER MD HE WILL DISCHARGE PATIENT IF THERE IS NOT ENOUGH FLUID FOR A PARACENTESIS, PATIENT IS AWARE AND VERBALIZED UNDERSTANDING.
--- NOTE | 2020-01-12 11:20 | NUR ---
DIALYSIS AT BEDSIDE.
[2020-01-12 13:00] VITALS: BP 150/81
[2020-01-12] MEDS: FERROUS SULFATE 325 MG TAB PO SCH (14:09)
[2020-01-12] MEDS: hydrALAZINE HCL 25 MG TAB PO SCH ×2 (14:09→21:39)
[2020-01-12] MEDS: AZITHROMYCIN 250 MG TAB PO SCH (14:09)
[2020-01-12] MEDS: LISINOPRIL 10 MG TAB PO SCH (14:10)
--- NOTE | 2020-01-12 16:09 | NUR ---
ASSESSED PATIENT'S BLOOD SUGAR AND IT IS CURRENTLY 59. GAVE PATIENT ORANGE JUICE AND REASSESSED BLOOD SUGAR IS 57 AND PATIENT HAD 100 ML EMESIS.
--- NOTE | 2020-01-12 16:20 | NUR ---
SPOKE WITH DOCTOR NISHA AND INFORMED HIM OF LOW BLOOD SUGAR AND PATIENT UNABLE TO DRINK ORANGE JUICE DUE TO VOMITING. MD IS AWARE. INFORMED FREQUENCY OF ACCUCHECK IS Q4 HOURS, MD IS AWARE AND ORDERED MARLENI
[2020-01-12] MEDS: DEXTROSE (50%) 50ML SYRG IV PRN (16:26)
[2020-01-12] MEDS ORDERED: ONDANSETRON HCL 4 MG/2 ML VIAL IV PRN (16:30)
[2020-01-12 16:34] VITALS: BP 142/77
--- NOTE | 2020-01-12 16:46 | NUR ---
ADMINISTERED DEXTROSE AND REASSESSED BLOOD SUGAR. BLOOD SUGAR IS 176
[2020-01-12 17:00] VITALS: BP 153/75
[2020-01-12] MEDS: AMITRIPTYLINE HCL 25 MG TAB PO SCH (17:50)
--- NOTE | 2020-01-12 19:24 | NUR ---
CLOSING SHIFT NOTE ENDORSED CARE TO STAFF CERTIFIED NURSE MIDWIFE LAVERNE KEN. PATIENT HAS NO S/S OF DISTRESS/SOB OR PAIN AT THIS TIME. WILL CONTINUE TO MONITOR.
--- NOTE | 2020-01-12 19:35 | NUR ---
opening note pt is aox4. pt resting in semi fowlers with HOB at 30 degrees. pt denies pain or discomfort at this time, will continue to monitor. respirations are even and nonlabored on room air. bed in low locked position, call light within reach.
[2020-01-12] MEDS: FAMOTIDINE 20 MG TAB PO SCH (21:39)
[2020-01-12] MEDS: ATORVASTATIN 20 MG TAB PO SCH (21:39)
[2020-01-12 21:57] VITALS: BP 154/83
--- NOTE | 2020-01-12 23:26 | NUR ---
pt ambulating to bathroom with NA standby assistance.
--- NOTE | 2020-01-13 00:05 | NUR ---
IV IV access at right wrist infiltrated. IV catheter removed and intact. pt tolerated removal well.
[2020-01-13] MEDS: ACCU-CHEK COMFORT CURVE STRIP VI SCH ×6 (00:06→20:28)
[2020-01-13] MEDS: ALBUTEROL SULF 2.5 MG/0.5ML(0.5%) NEB SOLN NEB SCH ×4 (00:30→18:38)
[2020-01-13] MEDS: IPRATROPIUM BROM 0.5 MG/2.5ML INH SOL NEB SCH ×4 (00:30→18:37)
--- NOTE | 2020-01-13 00:30 | NUR ---
SITTER SITTER pt has periods of confusion. pt wanders around room at times. pt is legally blind. pt now has a sitter at bedside for patients safety.
--- NOTE | 2020-01-13 00:40 | NUR ---
New IV IV access initiated at right wrist, 22g. patient tolerated insertion well.
[2020-01-13] MEDS: InsuLIN REG 1unit/0.01ml Soln (100units/ml) SC SCH ×6 (04:00→20:27)
[2020-01-13] MEDS: FUROSEMIDE 100 MG/10ML VIAL IV SCH ×2 (05:44→17:49)
[2020-01-13 05:55] LABS: BUN/Creatinine Ratio 9.5; Calcium 8.3 mg/dL (8.5-10.1); Potassium 5.4 mmol/L (3.5-5.1)
[2020-01-13] MEDS: INSULIN LANTUS (GLARGINE) 1 /0.01ml (100units/ml) SC SCH (06:37)
--- NOTE | 2020-01-13 06:57 | NUR ---
closing note pt dangling at bedside. respirations even and nonlabored on room air. no s/s of pain or discomfort. bed in low locked position, call light within reach.
--- NOTE | 2020-01-13 07:35 | NUR ---
Opening Note Received report from slot shift manager RN. Patient resting in bed, no signs or symptoms of distress noted at this time. Patient is on room air, respirations even and unlabored. Bed in low and locked position, call light within reach. Will continue to monitor Q1 hour and PRN. Sitter at bedside for safety.
[2020-01-13] MEDS: CARVEDILOL 12.5 MG TAB PO SCH ×2 (07:57→17:50)
[2020-01-13] MEDS: SEVELAMER 800 MG TAB PO SCH ×3 (07:57→17:51)
--- NOTE | 2020-01-13 08:10 | NUR ---
Patient refused 0800 insulin Patient states "I'm not taking that until you check my sugar." Patients blood glucose was checked by this RN. Patients glucose was 160. Patient continues to refuse. Will continue to monitor Q1 hour and PRN. Sitter at bedside for safety.
[2020-01-13] MEDS: cefTRIAXone 1GM/50ML D5W 50 ML IV SCH (09:22)
[2020-01-13] MEDS: hydrALAZINE HCL 25 MG TAB PO SCH ×3 (09:23→21:28)
[2020-01-13] MEDS: AZITHROMYCIN 250 MG TAB PO SCH (09:23)
[2020-01-13] MEDS: FERROUS SULFATE 325 MG TAB PO SCH (09:23)
[2020-01-13] MEDS: LISINOPRIL 10 MG TAB PO SCH ×2 (09:24→10:00)
--- NOTE | 2020-01-13 10:33 | NUR ---
Dr. Meche Pemberton at bedside Discussing plan of care with patient and this RN. No new orders received. Will continue to monitor Q1 hour and PRN.
--- NOTE | 2020-01-13 14:02 | NUR ---
Patient moved to room 277B Sitter discontinued at this time. Bed in low and locked position, call light within reach. Bed alarm on for safety. Will continue to monitor Q1 hour and PRN.
[2020-01-13 16:56] VITALS: BP 154/80
[2020-01-13] MEDS: AMITRIPTYLINE HCL 25 MG TAB PO SCH (17:50)
[2020-01-13] MEDS: DEXTROSE (50%) 50ML SYRG IV PRN (18:05)
--- NOTE | 2020-01-13 18:05 | NUR ---
Hypoglycemia Patient blood sugar 52. Patient given orange juice. Patient reassessed blood glucose now 49. Patient is awake and alert. Administered dextrose. Will continue to monitor, will reassess.
--- NOTE | 2020-01-13 18:20 | NUR ---
IV removed IV to right wrist removed, catheter intact, pressure dressing applied.Patient tolerated well. Will continue to monitor Q1 hour and PRN.
--- NOTE | 2020-01-13 18:21 | NUR ---
Blood glucose reassessed Patients blood glucose is ow 162. Patient sitting up in bed eating dinner, alert and oriented. Will continue to monitor Q1 hour and PRN.
--- NOTE | 2020-01-13 18:59 | NUR ---
Unable to obtain IV access Multiple attempts made, snath handle assembler at bedside and is aware. Will endorse to shift manager RN.
--- NOTE | 2020-01-13 19:10 | NUR ---
Closing Note Report given to hourly shift manager RN. No signs or symptoms of distress noted at this time.
--- NOTE | 2020-01-13 19:38 | NUR ---
Midline Placement: Patient educated on need for midline placement. All risks and benefits explained and all questions and concerns addresses prior to procedure. 18g/10cm midline inserted via right brachial vein using Ultrasound. Sterile technique utilized. Blood return obtained from lumen and flushed easily with NS using proper technique. Midline secured with saline lock; biodisc and occlusive dressing applied. Primary RN notified. Midline lot #[id number].
--- NOTE | 2020-01-13 19:40 | NUR ---
Midline Placement Nurse informed of of midline placement in ALFONSO 18g
--- NOTE | 2020-01-13 19:55 | NUR ---
Opening Shift Note Assumed care of patient, awake and alert. No S/S of distress/SOB or pain. Instructed on POC and to call for assist PRN, will continue to monitor for changes Q1hr and PRN. Midline placement in ALFONSO. Patient helped to the bathroom with moderate assistance.
[2020-01-13] MEDS: FAMOTIDINE 20 MG TAB PO SCH (21:28)
[2020-01-13] MEDS: ATORVASTATIN 20 MG TAB PO SCH (21:28)
[2020-01-13] MEDS: TEMAZEPAM 15 MG CAP PO PRN (21:36)
[2020-01-13 22:00] VITALS: BP 156/73
[2020-01-13 22:54] VITALS: BP 156/73
[2020-01-14] VITALS (7 sets, daily range): BP systolic 144–188; BP diastolic 70–115
[2020-01-14] MEDS: InsuLIN REG 1unit/0.01ml Soln (100units/ml) SC SCH ×5 (00:21→16:00)
[2020-01-14] MEDS: ACCU-CHEK COMFORT CURVE STRIP VI SCH ×5 (00:25→16:00)
[2020-01-14] MEDS: ALBUTEROL SULF 2.5 MG/0.5ML(0.5%) NEB SOLN NEB SCH ×3 (00:28→16:08)
[2020-01-14] MEDS: IPRATROPIUM BROM 0.5 MG/2.5ML INH SOL NEB SCH ×3 (00:28→16:08)
--- NOTE | 2020-01-14 04:25 | NUR ---
Low Glucose Glucose of 54, given three oranges juices with two packs of sugar, will reassess blood sugar.
[2020-01-14] MEDS: FUROSEMIDE 100 MG/10ML VIAL IV SCH (06:28)
[2020-01-14] MEDS: INSULIN LANTUS (GLARGINE) 1 /0.01ml (100units/ml) SC SCH (06:31)
--- NOTE | 2020-01-14 06:43 | NUR ---
Lantus Held Held Lantus due to patients's blood sugar of 132. Patient had an episode of hypoglycemia (BS-53) during the night. Will endorsed information to day shift nurse.
[2020-01-14] MEDS ORDERED: hydrALAZINE HCL 25 MG TAB PO PRN (06:45)
--- NOTE | 2020-01-14 06:45 | NUR ---
Blood Pressure Medication PRN Hospitalist made aware of patients blood pressure of 175/85 with no blood pressure PRN medication. Hospitalist ordered Hydralazine 25 mg PO TID SBP>150 PRN. Repeated orders to verified.
--- NOTE | 2020-01-14 07:28 | NUR ---
Opening Shift Note Assumed care of patient. Pt is awake, alert, and oriented X 3. No S/S of respiratory distress/SOB. Respirations are regular and non-labored. Patient reports no pain. Bed in lower position, brakes are locked, call light is within reach. IV is patent. Fistula is in L.arm . Thrills and bruits are present. POC discussed and pt instructed to call for assistance PRN. Will continue to monitor for changes Q1hr and PRN.
[2020-01-14] MEDS: SEVELAMER 800 MG TAB PO SCH ×2 (08:36→14:13)
[2020-01-14] MEDS: CARVEDILOL 12.5 MG TAB PO SCH (08:37)
[2020-01-14] MEDS: cefTRIAXone 1GM/50ML D5W 50 ML IV SCH (08:40)
[2020-01-14] MEDS: FERROUS SULFATE 325 MG TAB PO SCH (10:51)
[2020-01-14] MEDS: AZITHROMYCIN 250 MG TAB PO SCH (10:51)
[2020-01-14] MEDS: LISINOPRIL 10 MG TAB PO SCH (10:52)
[2020-01-14] MEDS: hydrALAZINE HCL 25 MG TAB PO SCH (10:52)
--- NOTE | 2020-01-14 11:35 | NUR ---
Dr. Pemberton at bed side to see a patient. Dr discussed the POC with the patient. Dr informed regarding potassium level 5.4, about holding regular insulin and lantus due to low blood sugar and patient was not eating well; regarding high blood pressure.
--- NOTE | 2020-01-14 15:35 | NUR ---
PATIENT BROUGHT TO US ROOM PER BED FOR PARACENTESIS BASELINE VITALS BP 128/79-72-16-97% ON ROOM AIR 1545 HR 72-15-96%-139/75 1550 HR 73-14-97%-131/83 1555 HR 73-14-96%-125/77 1600 HR 72-14-96%-130/74 1605 HR 72-20-95%-139/71 1608 HR 72-17-96%-135/85 1615 3650 LIGHT ANDREINA LIQUID OBTAINED. PATIENT TOLERATED PROCEDURE WELL. BAND-AID APPLIED TO RLQ ABD AFTER CATHETER REMOVED MIN BLEEDING NOTED AT SITE - NOT SUSTAINED WITH MANUAL PRESSURE APPLIED. PATIENT RETURNED TO ROOM PER BED. CONDITION APPEARS STABLE.
--- NOTE | 2020-01-14 16:30 | NUR ---
Pt back to room from radiology, BP 144/79, HR 72, RR 18, BS 149, no coverage per Dr. Pemberton since pt's blood sugar has been decreasing with insulin, pt denies any pain reported at this time.
--- NOTE | 2020-01-14 17:05 | NUR ---
Discharge instructions given as ordered. Encourage to follow up with PMD as instructed. All questions and concerns addressed. Patient verbalized understanding. Discussed discharge instructions with pt's son Reji over the phone including pt's diet, new prescriptions, follow up appointments, and education material sent with pt. Medication reconciliation form completed and copy given to patient. No home medications held in Pharmacy. IV removed with catheter intact, pressure dressing applied. Telemetry unit returned to ICU.
--- NOTE | 2020-01-14 17:25 | NUR ---
Patient taken to vehicle via wheelchair with all personal belongings, accompanied by staff, pt's family waiting for pt outside. Pt's discharge instructions, education material, and new prescription placed in pt's purse. No distress noted at time of departure.
== END 2020-01-14 17:20 | disposition home or self-care (01) | DRG 280 ==
LOC: ER 11:24 → TELE 11:25 → TELE-WESTW 15:46
PROVIDERS: ADMIT Internal Medicine; ATTEND Family Medicine
PROC: 0W9G3ZZ Drainage of Peritoneal Cavity, Percutaneous Approach (ICD-10-PCS; principal; 2020-01-14)
DX: I13.2 Hypertensive heart and chronic kidney disease with heart failure and with stage 5 chronic kidney disease, or end stage renal disease (principal); I21.A1 Myocardial infarction type 2; I50.43 Acute on chronic combined systolic (congestive) and diastolic (congestive) heart failure; J18.9 Pneumonia, unspecified organism; N18.6 End stage renal disease; R18.8 Other ascites; Z99.2 Dependence on renal dialysis; H54.7 Unspecified visual loss; K74.60 Unspecified cirrhosis of liver; F32.9 Major depressive disorder, single episode, unspecified; M10.9 Gout, unspecified; E78.5 Hyperlipidemia, unspecified; I25.10 Atherosclerotic heart disease of native coronary artery without angina pectoris; E11.22 Type 2 diabetes mellitus with diabetic chronic kidney disease; E11.40 Type 2 diabetes mellitus with diabetic neuropathy, unspecified; E11.21 Type 2 diabetes mellitus with diabetic nephropathy; E78.00 Pure hypercholesterolemia, unspecified; Z79.4 Long term (current) use of insulin; D63.8 Anemia in other chronic diseases classified elsewhere; I07.1 Rheumatic tricuspid insufficiency; Z82.3 Family history of stroke; Z82.49 Family history of ischemic heart disease and other diseases of the circulatory system; Z83.3 Family history of diabetes mellitus; Z79.899 Other long term (current) drug therapy; Z79.01 Long term (current) use of anticoagulants
CPT/HCPCS: 10022; 36415; 71045; 76700; 76942; 80048; 80053; 80307; 80320; 81001; 82140; 82550; 82962; 83036; 83880; 84484; 85025; 85610; 85730; 87081; 87086; 93005; 94640; G0378; J0696; J1815

== ENCOUNTER 2020-02-27 09:09 | Inpatient (IN) | payer MEDICARE, MEDICAID ==
[~2020-02-27] VITALS: Ht 162.6 cm; Wt 67.1 kg
[2020-02-27 10:24] LABS: Basophils # (auto) 0.1 10 ^3/uL (0-0.2); Eosinophils # (auto) 0.4 10 ^3/uL (0-0.8); Eosinophils % (auto) 5.5 % (0.0-7.0); Hematocrit 38.6 % (36.0-46.0); Hemoglobin 12.6 g/dL (12.2-16.2); Lymphocytes # (auto) 0.8 10 ^3/uL (0.4-5.4); Mean Corpuscular Hemoglobin 33.1 pg (28.0-32.0); Mean Corpuscular Hgb Conc. 32.7 g/dL (32.0-36.0); Mean Corpuscular Volume 101.1 fL (80.0-100.0); Monocytes # (auto) 0.6 10 ^3/uL (0-1.3); Monocytes % (auto) 8.4 % (0.0-12.0); Neutrophils # (auto) 5.2 10 ^3/uL (1.6-8.6); Neutrophils % (auto) 74.1 % (37.0-80.0); Nucleated Red Blood Cells % 0.1 %; Platelet Count (auto) 157 10^3/uL (140-450); Red Blood Cells 3.82 10^6/uL (4.0-5.20); Red Cell Distribution Width 14.3 % (11.8-14.3); White Blood Cell 7.1 10^3/uL (4.4-10.8)
[2020-02-27 10:40] LABS: INR 1.25 (0.9-1.15)
[2020-02-27 10:41] LABS: Albumin 2.9 g/dL (3.4-5.0); Calcium 8.3 mg/dL (8.5-10.1); Magnesium 2.6 mg/dL (1.6-2.6); Potassium 4.8 mmol/L (3.5-5.1)
[2020-02-27 10:47] LABS: BUN/Creatinine Ratio 8.1; Bilirubin, Total 0.8 mg/dL (0.2-1.0)
[2020-02-27] MEDS ORDERED: ONDANSETRON HCL 4 MG/2 ML VIAL IV PRN (12:15)
[2020-02-27] MEDS ORDERED: ACETAMINOPHEN 500 MG TAB PO PRN (12:15)
[2020-02-27] MEDS ORDERED: MORPHINE SULF INJ 2 MG/ML SYRINGE 1ML IV PRN ×2 (12:15)
[2020-02-27] MEDS ORDERED: DEXTROSE (50%) 50ML SYRG IV PRN (12:15)
[2020-02-27] MEDS ORDERED: NITROGLYCERIN 0.4 MG SL TAB SL PRN (12:15)
[2020-02-27] MEDS ORDERED: cefTRIAXone 1GM/50ML D5W 50 ML IV ONE (12:45)
[2020-02-27] MEDS: CARVEDILOL 12.5 MG TAB PO SCH (13:25)
[2020-02-27] MEDS: SEVELAMER 800 MG TAB PO SCH ×2 (13:25→21:18)
[2020-02-27] MEDS: FAMOTIDINE 20 MG TAB PO SCH (13:25)
[2020-02-27] MEDS ORDERED: SODIUM CHL 0.9% 1000 ML BAG XX ONE (13:30)
[2020-02-27] MEDS: ACCU-CHEK COMFORT CURVE STRIP VI SCH ×2 (17:00→21:20)
[2020-02-27] MEDS: InsuLIN REG 1unit/0.01ml Soln (100units/ml) SC SCH ×2 (17:00→21:19)
[2020-02-27 17:45] VITALS: BP 165/84
[2020-02-27] MEDS: AMITRIPTYLINE HCL 25 MG TAB PO SCH (21:17)
[2020-02-27] MEDS: hydrALAZINE HCL 25 MG TAB PO SCH (21:19)
[2020-02-27] MEDS: ATORVASTATIN 20 MG TAB PO SCH (21:19)
[2020-02-27 23:42] VITALS: BP 114/69
[2020-02-28 05:42] VITALS: BP 134/88
[2020-02-28 06:30] LABS: Basophils # (auto) 0.1 10 ^3/uL (0-0.2); Basophils % (auto) 1.3 % (0.0-2.0); Eosinophils # (auto) 0.4 10 ^3/uL (0-0.8); Eosinophils % (auto) 6.2 % (0.0-7.0); Hematocrit 37.5 % (36.0-46.0); Hemoglobin 12.4 g/dL (12.2-16.2); Lymphocytes # (auto) 0.7 10 ^3/uL (0.4-5.4); Lymphocytes % (auto) 12.4 % (10.0-50.0); Mean Corpuscular Hemoglobin 33.3 pg (28.0-32.0); Mean Corpuscular Volume 100.9 fL (80.0-100.0); Monocytes # (auto) 0.4 10 ^3/uL (0-1.3); Monocytes % (auto) 7.7 % (0.0-12.0); Neutrophils # (auto) 4.1 10 ^3/uL (1.6-8.6); Neutrophils % (auto) 72.4 % (37.0-80.0); Nucleated Red Blood Cells % 0.1 %; Platelet Count (auto) 142 10^3/uL (140-450); Red Blood Cells 3.71 10^6/uL (4.0-5.20); White Blood Cell 5.7 10^3/uL (4.4-10.8)
[2020-02-28] MEDS: InsuLIN REG 1unit/0.01ml Soln (100units/ml) SC SCH ×4 (06:34→21:56)
[2020-02-28] MEDS: ACCU-CHEK COMFORT CURVE STRIP VI SCH ×4 (06:34→21:57)
[2020-02-28 06:48] LABS: Albumin 2.6 g/dL (3.4-5.0); Potassium 4.3 mmol/L (3.5-5.1)
[2020-02-28 06:52] LABS: BUN/Creatinine Ratio 7.1; Bilirubin, Total 0.7 mg/dL (0.2-1.0); Total Protein 6.6 g/dL (6.4-8.2)
[2020-02-28] MEDS: cefTRIAXone 1GM/50ML D5W 50 ML IV SCH (08:35)
[2020-02-28] MEDS: SEVELAMER 800 MG TAB PO SCH ×3 (08:35→18:27)
[2020-02-28 09:00] VITALS: BP 158/87
[2020-02-28] MEDS: FAMOTIDINE 20 MG TAB PO SCH (10:18)
[2020-02-28] MEDS: CARVEDILOL 12.5 MG TAB PO SCH (10:19)
[2020-02-28] MEDS: LISINOPRIL 10 MG TAB PO SCH (10:20)
[2020-02-28] MEDS: hydrALAZINE HCL 25 MG TAB PO SCH ×2 (10:20→21:55)
[2020-02-28 13:14] VITALS: BP 153/108
[2020-02-28] MEDS: HYDROcodone-ACET 5/325MG TAB PO PRN (15:37)
[2020-02-28 17:00] VITALS: BP 151/83
[2020-02-28] MEDS: AMITRIPTYLINE HCL 25 MG TAB PO SCH (18:28)
[2020-02-28] MEDS: ATORVASTATIN 20 MG TAB PO SCH (21:57)
[2020-02-28 22:00] VITALS: BP 140/65
[2020-02-29] MEDS: HYDROcodone-ACET 5/325MG TAB PO PRN (02:10)
[2020-02-29 05:00] VITALS: BP 140/76
[2020-02-29] MEDS: ACCU-CHEK COMFORT CURVE STRIP VI SCH ×4 (06:27→21:12)
[2020-02-29] MEDS: InsuLIN REG 1unit/0.01ml Soln (100units/ml) SC SCH ×4 (06:27→22:13)
[2020-02-29] MEDS ORDERED: SODIUM CHL 0.9% 1000 ML BAG XX ONE (07:00)
[2020-02-29] MEDS: SEVELAMER 800 MG TAB PO SCH ×3 (08:29→17:18)
[2020-02-29 08:35] VITALS: BP 151/79
[2020-02-29] MEDS: cefTRIAXone 1GM/50ML D5W 50 ML IV SCH (09:00)
[2020-02-29] MEDS: FAMOTIDINE 20 MG TAB PO SCH (11:33)
[2020-02-29] MEDS: CARVEDILOL 12.5 MG TAB PO SCH ×2 (11:34→22:09)
[2020-02-29] MEDS: LISINOPRIL 10 MG TAB PO SCH (11:34)
[2020-02-29] MEDS: hydrALAZINE HCL 25 MG TAB PO SCH ×2 (11:35→22:08)
[2020-02-29] MEDS ORDERED: cloNIDine HCL 0.1 MG TAB ONE (12:11)
[2020-02-29] MEDS ORDERED: METOPROLOL TARTRATE 1MG/1ML-5ML VIAL IV ONE ×2 (12:11→12:30)
[2020-02-29] MEDS ORDERED: cloNIDine HCL 0.1 MG TAB PO ONE (12:30)
[2020-02-29 13:00] VITALS: BP 184/84
[2020-02-29 17:00] VITALS: BP 131/64
[2020-02-29] MEDS: AMITRIPTYLINE HCL 25 MG TAB PO SCH (17:19)
[2020-02-29 22:00] VITALS: BP 145/67
[2020-02-29] MEDS: ATORVASTATIN 20 MG TAB PO SCH (22:09)
[2020-03-01 05:00] VITALS: BP 140/72
[2020-03-01] MEDS: ACCU-CHEK COMFORT CURVE STRIP VI SCH ×2 (06:26→11:30)
[2020-03-01] MEDS: InsuLIN REG 1unit/0.01ml Soln (100units/ml) SC SCH ×2 (06:30→11:30)
[2020-03-01] MEDS: cefTRIAXone 1GM/50ML D5W 50 ML IV SCH (08:58)
[2020-03-01] MEDS: hydrALAZINE HCL 25 MG TAB PO SCH (08:58)
[2020-03-01] MEDS: FAMOTIDINE 20 MG TAB PO SCH (08:59)
[2020-03-01] MEDS: SEVELAMER 800 MG TAB PO SCH ×2 (08:59→12:00)
[2020-03-01] MEDS: LISINOPRIL 10 MG TAB PO SCH (08:59)
[2020-03-01] MEDS: CARVEDILOL 12.5 MG TAB PO SCH (09:00)
[2020-03-01] MEDS: HYDROcodone-ACET 5/325MG TAB PO PRN (09:06)
[2020-03-01 12:49] VITALS: BP 139/70
[2020-03-01 13:09] VITALS: BP 130/61
== END 2020-03-01 14:20 | disposition home or self-care (01) | DRG 432 ==
LOC: ER 09:09 → TELE 09:10 → TELE-EAST 18:25
PROVIDERS: ADMIT Nurse Practitioner Acute Care; ATTEND Internal Medicine
PROC: 5A1D70Z Performance of Urinary Filtration, Intermittent, Less than 6 Hours Per Day (ICD-10-PCS; principal; 2020-02-27)
PROC: 0W9G3ZZ Drainage of Peritoneal Cavity, Percutaneous Approach (ICD-10-PCS; 2020-02-29)
DX: K74.60 Unspecified cirrhosis of liver (principal); I50.43 Acute on chronic combined systolic (congestive) and diastolic (congestive) heart failure; N18.6 End stage renal disease; R18.8 Other ascites; E44.0 Moderate protein-calorie malnutrition; I31.3 Pericardial effusion (noninflammatory); E87.1 Hypo-osmolality and hyponatremia; K86.1 Other chronic pancreatitis; I13.2 Hypertensive heart and chronic kidney disease with heart failure and with stage 5 chronic kidney disease, or end stage renal disease; H54.8 Legal blindness, as defined in USA; Z99.2 Dependence on renal dialysis; D63.8 Anemia in other chronic diseases classified elsewhere; E11.22 Type 2 diabetes mellitus with diabetic chronic kidney disease; E78.5 Hyperlipidemia, unspecified; I25.10 Atherosclerotic heart disease of native coronary artery without angina pectoris; Z79.01 Long term (current) use of anticoagulants; Z79.02 Long term (current) use of antithrombotics/antiplatelets; Z79.4 Long term (current) use of insulin; Z79.899 Other long term (current) drug therapy; Z82.3 Family history of stroke; Z82.49 Family history of ischemic heart disease and other diseases of the circulatory system; Z83.3 Family history of diabetes mellitus; Z90.49 Acquired absence of other specified parts of digestive tract; Z95.5 Presence of coronary angioplasty implant and graft
CPT/HCPCS: 10022; 36415; 71045; 74176; 76942; 80053; 82150; 82962; 83690; 83735; 83880; 84484; 85025; 85610; 85730; 86141; 90935; 93005; 96365; G0378; J0696; J1815; J2405

== ENCOUNTER → 2020-03-24 | Outpatient (CLI) | payer MEDICARE, MEDICAID ==
[2020-03-24 09:36] LABS: Calcium 8.5 mg/dL (8.5-10.1); Potassium 4.3 mmol/L (3.5-5.1)
[2020-03-24 09:42] LABS: Albumin 2.7 g/dL (3.4-5.0); BUN/Creatinine Ratio 9.6; Total Protein 6.6 g/dL (6.4-8.2)
== END | disposition home or self-care (01) ==
LOC: LAB 08:56
PROVIDERS: ATTEND Internal Medicine
DX: I50.9 Heart failure, unspecified (principal); R51 Headache; R42 Dizziness and giddiness
CPT/HCPCS: 36415; 80053

== ENCOUNTER 2020-04-03 10:16 | Inpatient (IN) | payer MEDICARE, MEDICAID ==
[~2020-04-03] VITALS: Ht 160 cm; Wt 52.0 kg
[2020-04-03 11:00] LABS: Basophils # (auto) 0.1 10 ^3/uL (0-0.2); Eosinophils # (auto) 0.5 10 ^3/uL (0-0.8); Lymphocytes # (auto) 0.6 10 ^3/uL (0.4-5.4); Monocytes # (auto) 0.4 10 ^3/uL (0-1.3); Neutrophils # (auto) 5.5 10 ^3/uL (1.6-8.6); White Blood Cell 7.1 10^3/uL (4.4-10.8)
[2020-04-03 11:02] LABS: Basophils % (auto) 1.2 % (0.0-2.0); Eosinophils % (auto) 7.1 % (0.0-7.0); Hematocrit 33.1 % (36.0-46.0); Hemoglobin 10.8 g/dL (12.2-16.2); Lymphocytes % (auto) 8.4 % (10.0-50.0); Mean Corpuscular Hemoglobin 33.3 pg (28.0-32.0); Mean Corpuscular Hgb Conc. 32.7 g/dL (32.0-36.0); Mean Corpuscular Volume 101.7 fL (80.0-100.0); Monocytes % (auto) 5.9 % (0.0-12.0); Neutrophils % (auto) 77.4 % (37.0-80.0); Platelet Count (auto) 257 10^3/uL (140-450); Red Blood Cells 3.26 10^6/uL (4.0-5.20); Red Cell Distribution Width 13.4 % (11.8-14.3)
[2020-04-03 11:14] LABS: INR 1.22 (0.9-1.15); Partial Thromboplastin Time 28.5 sec (23.64-32.05)
[2020-04-03 11:22] LABS: Albumin 2.6 g/dL (3.4-5.0); Calcium 8.4 mg/dL (8.5-10.1); Magnesium 2.3 mg/dL (1.6-2.6)
[2020-04-03 11:27] LABS: BUN/Creatinine Ratio 9.3; Bilirubin, Total 0.5 mg/dL (0.2-1.0); Total Protein 6.8 g/dL (6.4-8.2)
[2020-04-03] MEDS ORDERED: MORPHINE SULF INJ 2 MG/ML SYRINGE 1ML IV PRN (17:00)
[2020-04-03] MEDS ORDERED: NITROGLYCERIN 0.4 MG SL TAB SL PRN (17:00)
[2020-04-03] MEDS ORDERED: DEXTROSE (50%) 50ML SYRG IV PRN (18:45)
[2020-04-03] MEDS ORDERED: PROMETHAZINE HCL 25 MG/ML 1ML IV PRN (18:45)
[2020-04-03] MEDS ORDERED: LORazepam 0.5 MG TAB PO PRN (18:45)
[2020-04-03 20:19] LABS: Alcohol, Urine < 3.0 mg/dL (0-10); Amphetamine Screen, Urine NEGATIVE (NEGATIVE); Barbiturate Scree,Urine NEGATIVE (NEGATIVE); Benzodiazephine Screen, Urine NEGATIVE (NEGATIVE); Cannabinoid Screen, Urine NEGATIVE (NEGATIVE); Cocaine Screen, Urine NEGATIVE (NEGATIVE); Opiate Scree,Urine NEGATIVE (NEGATIVE); Phencyclidine Screen, Urine NEGATIVE (NEGATIVE)
[2020-04-03] MEDS: ACETAMINOPHEN 500 MG TAB PO PRN (20:47)
[2020-04-03 20:55] VITALS: BP 164/79
--- NOTE | 2020-04-03 20:55 | NUR ---
Telemetry admit from [facility] admitted to Telemetry unit after SBAR received. Patient oriented to CRISTIAN BOYER, RN primary RN, unit, room, bed, and unit policies regarding patient care and visiting hours. Patient now on continuous telemetry monitoring, tele box # [] and telemetry reading on arrival to unit is []. Patient placed on bedside oxygen, weighed by bedscale and encouraged to call if they need something. All questions and concerns addressed, patient verbalized understanding. Note: []
[2020-04-03] MEDS: hydrALAZINE HCL 25 MG TAB PO SCH (22:26)
[2020-04-03] MEDS: CARVEDILOL 12.5 MG TAB PO SCH (22:27)
[2020-04-03] MEDS: ATORVASTATIN 20 MG TAB PO SCH (22:27)
[2020-04-03] MEDS: FAMOTIDINE 20 MG TAB PO SCH (22:28)
[2020-04-03] MEDS: ACCU-CHEK COMFORT CURVE STRIP VI SCH (22:28)
[2020-04-03] MEDS: InsuLIN REG 1unit/0.01ml Soln (100units/ml) SC SCH (22:39)
[2020-04-03] MEDS: INSULIN NPH Isophane (HUMAN) 1unit/0.01ml Susp(100units/ml) SC SCH (22:40)
[2020-04-03] MEDS: FUROSEMIDE 100 MG/10ML VIAL IV SCH (22:42)
[2020-04-04] VITALS (8 sets, daily range): BP systolic 133–185; BP diastolic 47–95
[2020-04-04] MEDS: FUROSEMIDE 100 MG/10ML VIAL IV SCH ×2 (06:25→18:32)
[2020-04-04] MEDS: InsuLIN REG 1unit/0.01ml Soln (100units/ml) SC SCH ×4 (06:27→21:56)
[2020-04-04] MEDS: ACCU-CHEK COMFORT CURVE STRIP VI SCH ×4 (06:29→21:57)
--- NOTE | 2020-04-04 07:43 | NUR ---
Closing note Endorsed care to day shift LAVERNE Sanchez
[2020-04-04 07:58] LABS: Albumin 2.4 g/dL (3.4-5.0); Calcium 8.4 mg/dL (8.5-10.1); Potassium 4.3 mmol/L (3.5-5.1)
[2020-04-04 08:01] LABS: BUN/Creatinine Ratio 10.4; Bilirubin, Total 0.7 mg/dL (0.2-1.0); Total Protein 6.4 g/dL (6.4-8.2)
[2020-04-04] MEDS ORDERED: SODIUM CHL 0.9% 1000 ML BAG XX ONE (08:15)
[2020-04-04] MEDS: SEVELAMER 800 MG TAB PO SCH ×3 (08:41→18:33)
[2020-04-04] MEDS: traMADol HCL 50 MG TAB PO PRN (08:47)
[2020-04-04] MEDS: CLOPIDOGREL BISULFATE 75 MG TAB PO SCH (10:00)
--- NOTE | 2020-04-04 11:11 | NUR ---
Dr. Jama was in to see patient and Md left new orders. Patient had hemodialysis today and tolerated it well. Will continue to monitor patient.
[2020-04-04] MEDS: INSULIN NPH Isophane (HUMAN) 1unit/0.01ml Susp(100units/ml) SC SCH ×2 (12:30→21:57)
[2020-04-04] MEDS: CARVEDILOL 12.5 MG TAB PO SCH ×2 (13:12→14:12)
[2020-04-04] MEDS: ISOSORBIDE MONONITRATE ER 60 MG TAB PO SCH (13:13)
[2020-04-04] MEDS: hydrALAZINE HCL 25 MG TAB PO SCH ×2 (13:14→22:18)
[2020-04-04] MEDS: FERROUS SULFATE 325 MG TAB PO SCH (13:14)
[2020-04-04] MEDS: LISINOPRIL 10 MG TAB PO SCH (13:14)
[2020-04-04] MEDS: AMITRIPTYLINE HCL 25 MG TAB PO SCH (18:00)
--- NOTE | 2020-04-04 19:15 | NUR ---
Opening note Assumed care of patient. Patient alert and orientated x4. Argentine speaking.No sob or distress noted. Bed locked in lowest position and side rails up x2. POC reviewed. No questions at this time. WILL continue to monitor.
[2020-04-04] MEDS: ATORVASTATIN 20 MG TAB PO SCH (22:21)
[2020-04-04] MEDS: FAMOTIDINE 20 MG TAB PO SCH (22:21)
[2020-04-05] MEDS: ACCU-CHEK COMFORT CURVE STRIP VI SCH ×4 (06:16→22:02)
[2020-04-05] MEDS: FUROSEMIDE 100 MG/10ML VIAL IV SCH ×2 (06:16→18:24)
[2020-04-05] MEDS: InsuLIN REG 1unit/0.01ml Soln (100units/ml) SC SCH ×4 (06:48→22:01)
[2020-04-05] MEDS: SEVELAMER 800 MG TAB PO SCH ×3 (08:00→18:23)
--- NOTE | 2020-04-05 08:23 | NUR ---
Closing note endorsed care to day shift virgen Sanchez
[2020-04-05 08:29] LABS: Basophils # (auto) 0.1 10 ^3/uL (0-0.2); Basophils % (auto) 1.7 % (0.0-2.0); Eosinophils # (auto) 0.8 10 ^3/uL (0-0.8); Eosinophils % (auto) 10.8 % (0.0-7.0); Hematocrit 32.4 % (36.0-46.0); Hemoglobin 10.5 g/dL (12.2-16.2); Lymphocytes # (auto) 0.9 10 ^3/uL (0.4-5.4); Lymphocytes % (auto) 11.7 % (10.0-50.0); Mean Corpuscular Hemoglobin 32.9 pg (28.0-32.0); Mean Corpuscular Hgb Conc. 32.6 g/dL (32.0-36.0); Mean Corpuscular Volume 100.9 fL (80.0-100.0); Monocytes # (auto) 0.6 10 ^3/uL (0-1.3); Monocytes % (auto) 7.5 % (0.0-12.0); Neutrophils # (auto) 5.1 10 ^3/uL (1.6-8.6); Neutrophils % (auto) 68.3 % (37.0-80.0); Platelet Count (auto) 240 10^3/uL (140-450); Red Blood Cells 3.21 10^6/uL (4.0-5.20); Red Cell Distribution Width 13.6 % (11.8-14.3); White Blood Cell 7.5 10^3/uL (4.4-10.8)
[2020-04-05 08:51] LABS: BUN/Creatinine Ratio 9.3; Calcium 8.4 mg/dL (8.5-10.1); Phosphorus 2.8 mg/dL (2.5-4.90)
[2020-04-05 09:00] VITALS: BP 166/96
--- NOTE | 2020-04-05 09:30 | NUR ---
Dr. Jama was in to check on patient. Still waiting for cardiac clearance from Dr. Canas. Patient unhappy being NPO as she stated that she was very hungry. Had to explain to patient the reason for being NPO for surgery but patient not listening to explanation at this time.
[2020-04-05] MEDS: ACETAMINOPHEN 500 MG TAB PO PRN ×2 (09:36→15:34)
[2020-04-05] MEDS: hydrALAZINE HCL 25 MG TAB PO SCH ×2 (09:37→22:07)
--- NOTE | 2020-04-05 09:37 | NUR ---
Carvedilol 12.5 mg given at 0937 but unable to chart on EMAR as it is stating that it is for the next dose at 2200. Phoned Pharmacy and made aware of same.
[2020-04-05] MEDS: LISINOPRIL 10 MG TAB PO SCH ×2 (09:39→22:08)
[2020-04-05] MEDS: CLOPIDOGREL BISULFATE 75 MG TAB PO SCH (09:43)
--- NOTE | 2020-04-05 11:45 | NUR ---
PACU phoned and stated that the surgery is cancelled and that patient can resume her diet with no schedule made for surgery at this time. Patient notified of same.
--- NOTE | 2020-04-05 12:00 | NUR ---
Dr. Canas was in to see patient and left new orders.
[2020-04-05] MEDS: INSULIN NPH Isophane (HUMAN) 1unit/0.01ml Susp(100units/ml) SC SCH ×2 (12:25→22:01)
[2020-04-05] MEDS: FERROUS SULFATE 325 MG TAB PO SCH (12:27)
[2020-04-05] MEDS: ISOSORBIDE MONONITRATE ER 60 MG TAB PO SCH (12:27)
[2020-04-05 17:28] VITALS: BP 127/62
[2020-04-05] MEDS: traMADol HCL 50 MG TAB PO PRN (18:22)
[2020-04-05] MEDS: AMITRIPTYLINE HCL 25 MG TAB PO SCH (18:24)
--- NOTE | 2020-04-05 19:30 | NUR ---
assumed care, pt. awake, no c/o pain, no sob.
[2020-04-05 22:00] VITALS: BP 133/75
[2020-04-05] MEDS: ATORVASTATIN 20 MG TAB PO SCH (22:07)
[2020-04-05] MEDS: CARVEDILOL 12.5 MG TAB PO SCH (22:07)
[2020-04-05] MEDS: FAMOTIDINE 20 MG TAB PO SCH (22:08)
[2020-04-06 05:00] VITALS: BP 141/70
[2020-04-06] MEDS: FUROSEMIDE 100 MG/10ML VIAL IV SCH ×2 (05:53→18:00)
[2020-04-06] MEDS ORDERED: ALBUMIN 25% 100 ML IV ONE (06:00)
[2020-04-06] MEDS: InsuLIN REG 1unit/0.01ml Soln (100units/ml) SC SCH ×4 (06:14→22:00)
[2020-04-06] MEDS: ACCU-CHEK COMFORT CURVE STRIP VI SCH ×4 (06:14→22:22)
[2020-04-06] MEDS ORDERED: SODIUM CHL 0.9% 1000 ML BAG XX ONE (07:00)
--- NOTE | 2020-04-06 07:25 | NUR ---
Opening Shift Note Assumed care of patient, awake and alert. No S/S of distress/SOB or pain reported. Instructed on POC and to call for assist PRN, call light within, bed alarm activated, right foot dressing CDI, ecchymosis noted and swelling, elevated on pillows, will continue to monitor for changes Q1hr and PRN.
[2020-04-06 07:40] LABS: Basophils # (auto) 0.1 10 ^3/uL (0-0.2); Basophils % (auto) 1.5 % (0.0-2.0); Eosinophils # (auto) 0.8 10 ^3/uL (0-0.8); Eosinophils % (auto) 11.2 % (0.0-7.0); Hematocrit 35.7 % (36.0-46.0); Hemoglobin 11.8 g/dL (12.2-16.2); Lymphocytes # (auto) 0.8 10 ^3/uL (0.4-5.4); Lymphocytes % (auto) 10.8 % (10.0-50.0); Mean Corpuscular Hemoglobin 33.5 pg (28.0-32.0); Mean Corpuscular Volume 101.7 fL (80.0-100.0); Monocytes # (auto) 0.5 10 ^3/uL (0-1.3); Monocytes % (auto) 7.2 % (0.0-12.0); Neutrophils # (auto) 4.9 10 ^3/uL (1.6-8.6); Neutrophils % (auto) 69.3 % (37.0-80.0); Nucleated Red Blood Cells % 0.1 %; Platelet Count (auto) 258 10^3/uL (140-450); Red Blood Cells 3.51 10^6/uL (4.0-5.20); Red Cell Distribution Width 13.7 % (11.8-14.3); White Blood Cell 7.1 10^3/uL (4.4-10.8)
[2020-04-06 07:52] LABS: BUN/Creatinine Ratio 8.5; Calcium 8.7 mg/dL (8.5-10.1); Potassium 4.2 mmol/L (3.5-5.1)
[2020-04-06 07:59] LABS: % Iron Saturation 34.8 % (15-50)
[2020-04-06 08:00] VITALS: BP 149/74
[2020-04-06 09:00] VITALS: BP 149/74
[2020-04-06] MEDS: FERROUS SULFATE 325 MG TAB PO SCH (09:18)
[2020-04-06] MEDS: SEVELAMER 800 MG TAB PO SCH ×3 (09:18→18:00)
[2020-04-06] MEDS: traMADol HCL 50 MG TAB PO PRN (09:19)
--- NOTE | 2020-04-06 09:55 | NUR ---
AT BEDSIDE DR CAMERON AT BEDSIDE, DISCUSSING POC WITH PT, CONT CARE
[2020-04-06] MEDS: CLOPIDOGREL BISULFATE 75 MG TAB PO SCH (10:00)
[2020-04-06] MEDS: INSULIN NPH Isophane (HUMAN) 1unit/0.01ml Susp(100units/ml) SC SCH ×2 (10:00→22:00)
--- NOTE | 2020-04-06 12:05 | NUR ---
HEMODIALYSIS NURSE AT BEDSIDE
--- NOTE | 2020-04-06 12:15 | NUR ---
HEPARIN PULLED AND GIVEN TO HD RN AT BEDSIDE
[2020-04-06 13:07] VITALS: BP 160/78
--- NOTE | 2020-04-06 14:06 | NUR ---
ALBUMIN NOT ADMINISTERED HD RN RETURNED ALBUMIN TO THIS RN STATING IT WASN'T NEEDED DUE TO PTS BLOOD PRESSURE REMAINING HIGH.
--- NOTE | 2020-04-06 14:41 | NUR ---
Est energy needs 5348-1565 kcal (25-30 kcal/kg BW 63kg) Est protein needs 63-82g (1-1.3g/kg BW 63kg r/t ESRD on HD) will reassess prn. Addendum: 04/06/20 at [address] Amended: Links added.
--- NOTE | 2020-04-06 15:12 | NUR ---
HD COMPLETE, 3L TAKEN OFF PT HYPERTENSIVE, WILL MEDICATE PER MAR
[2020-04-06] MEDS: hydrALAZINE HCL 25 MG TAB PO SCH ×2 (15:56→22:14)
[2020-04-06] MEDS: CARVEDILOL 12.5 MG TAB PO SCH ×2 (15:56→22:16)
[2020-04-06] MEDS: ISOSORBIDE MONONITRATE ER 60 MG TAB PO SCH (15:57)
[2020-04-06] MEDS: LISINOPRIL 10 MG TAB PO SCH ×2 (15:59→22:17)
[2020-04-06 17:00] VITALS: BP 156/67
[2020-04-06] MEDS: AMITRIPTYLINE HCL 25 MG TAB PO SCH (18:00)
--- NOTE | 2020-04-06 19:35 | NUR ---
ASSUMED CARE, PT. AWAKE, NO C/O PAIN, NO SOB.
[2020-04-06] MEDS ORDERED: EPOETIN ALFA 10,000 UNIT/1 ML VIAL SC ONE (21:00)
[2020-04-06 22:00] VITALS: BP 123/65
[2020-04-06] MEDS: FAMOTIDINE 20 MG TAB PO SCH (22:16)
[2020-04-06] MEDS: ATORVASTATIN 20 MG TAB PO SCH (22:16)
[2020-04-07] MEDS: ACETAMINOPHEN 500 MG TAB PO PRN ×2 (04:08→22:05)
[2020-04-07 05:00] VITALS: BP 144/80
[2020-04-07] MEDS: FUROSEMIDE 100 MG/10ML VIAL IV SCH ×2 (05:38→17:22)
[2020-04-07] MEDS: InsuLIN REG 1unit/0.01ml Soln (100units/ml) SC SCH ×4 (06:14→22:00)
[2020-04-07] MEDS: ACCU-CHEK COMFORT CURVE STRIP VI SCH ×4 (06:15→22:05)
--- NOTE | 2020-04-07 08:00 | NUR ---
Morning note Patient resting in bed with eyes closed; respirations even and unlabored, no distress noted. Fall precautions in place with call light within reach. Patient's personal wheelchair at bedside.
[2020-04-07] MEDS: CLOPIDOGREL BISULFATE 75 MG TAB PO SCH (10:00)
[2020-04-07] MEDS: FERROUS SULFATE 325 MG TAB PO SCH (10:24)
[2020-04-07] MEDS: CARVEDILOL 12.5 MG TAB PO SCH ×2 (10:24→22:01)
[2020-04-07] MEDS: SEVELAMER 800 MG TAB PO SCH ×3 (10:24→17:22)
[2020-04-07] MEDS: LISINOPRIL 10 MG TAB PO SCH ×2 (10:25→22:02)
[2020-04-07] MEDS: ISOSORBIDE MONONITRATE ER 60 MG TAB PO SCH (10:25)
[2020-04-07] MEDS: hydrALAZINE HCL 25 MG TAB PO SCH ×2 (10:33→22:00)
[2020-04-07] MEDS: INSULIN NPH Isophane (HUMAN) 1unit/0.01ml Susp(100units/ml) SC SCH ×2 (10:40→22:03)
[2020-04-07 13:00] VITALS: BP 133/66
--- NOTE | 2020-04-07 13:14 | NUR ---
Patient off unit to radiology via hospital bed. Respirations even and unlabored, no distress noted.
--- NOTE | 2020-04-07 13:30 | NUR ---
PARACENTESIS DONE BY DR GARRIDO IN ULTRASOUND. PT TOLERATED WELL. VSS. 137/75-86-16-94%. 4700 ML OF ASCITES FLUID REMOVED.
--- NOTE | 2020-04-07 14:10 | NUR ---
RLQ paracentesis dressing site is clean, dry and intact. Patient denies pain at site. Respirations even and unlabored, no distress noted. Fall precautions in place with call light within reach.
--- NOTE | 2020-04-07 16:23 | NUR ---
RE: Low glucose level Patient notified RN that her "sugar level felt low" and requested to be checked. POC glucose obtained. Critical low POC glucose protocol initiated. Notified Dr. Wesley Pemberton. verbalized understanding. Reassess POC glucose as scheduled.
--- NOTE | 2020-04-07 16:26 | NUR ---
Patient cleared for surgery per Dr. Canas.
--- NOTE | 2020-04-07 16:28 | NUR ---
Called Dr. Jama office to notify of cardiac surgery clearance Spoke with Renita.
[2020-04-07 17:00] VITALS: BP 147/75
[2020-04-07] MEDS: AMITRIPTYLINE HCL 25 MG TAB PO SCH (17:22)
[2020-04-07] MEDS: traMADol HCL 50 MG TAB PO PRN (17:32)
--- NOTE | 2020-04-07 17:33 | NUR ---
RE: Pain Patient reports 10/10 pain located in the head area. Patient refused ordered PRN pain medication for 10/10 pain. Patient requested Tramadol. PRN medication administered per MD order. Patient refused heat or ice pack.
--- NOTE | 2020-04-07 18:30 | NUR ---
Food brought to hospital by family Patient received [employer] food from family. Patient educated on diabetic, dialysis diet. Patient verbalized understanding and stated "I don't like the food they are serving in here. I'm not eating. I need to eat."
--- NOTE | 2020-04-07 18:47 | NUR ---
Closing note patient resting in bed with even and unlabored respirations, no distress noted. Fall precautions in place with call light within reach. Patient's personal wheelchair at bedside.
--- NOTE | 2020-04-07 19:17 | NUR ---
Care endorsed to LAVERNE Daly.
--- NOTE | 2020-04-07 20:00 | NUR ---
Opening Shift Note Assumed care of patient, awake and alert. A&Ox4. Patient lying in bed. No S/S of distress/SOB or pain. Safety measures maintained by keeping the bed locked in lowest position, 2 side rails up, personal items and call light within reach. Instructed on POC and to call for assist PRN, will continue to monitor for changes Q1hr and PRN.
[2020-04-07 22:00] VITALS: BP 152/80
[2020-04-07] MEDS: ATORVASTATIN 20 MG TAB PO SCH (22:01)
[2020-04-07] MEDS: FAMOTIDINE 20 MG TAB PO SCH (22:02)
--- NOTE | 2020-04-08 | NUR ---
Patient NPO Possible procedure in the am. Fluids and food removed from bedside. Patient aware.
--- NOTE | 2020-04-08 04:47 | NUR ---
UA sent to lab via bullet system
[2020-04-08 05:00] VITALS: BP 142/71
[2020-04-08 05:07] LABS: Urine Bacteria NONE SEEN /hpf (None Seen); Urine Blood 2+ /uL (Negative); Urine Mucus FEW (None Seen); Urine Specific Gravity 1.014 (1.001-1.035); Urine WBC 143 /hpf (0 - 5)
[2020-04-08] MEDS: FUROSEMIDE 100 MG/10ML VIAL IV SCH ×2 (06:00→17:11)
[2020-04-08] MEDS: InsuLIN REG 1unit/0.01ml Soln (100units/ml) SC SCH ×4 (06:20→22:00)
[2020-04-08] MEDS: ACCU-CHEK COMFORT CURVE STRIP VI SCH ×4 (06:21→23:50)
[2020-04-08] MEDS ORDERED: SODIUM CHL 0.9% 1000 ML BAG XX ONE (07:00)
[2020-04-08 07:25] LABS: INR 1.19 (0.9-1.15); Partial Thromboplastin Time 28.4 sec (23.64-32.05)
--- NOTE | 2020-04-08 07:30 | NUR ---
Morning note Patient resting in bed with even and unlabored respirations, no distress noted. transportation specialist at bedside. Fall precautions in place with call light within reach. Patient's personal wheelchair at bedside
[2020-04-08 08:00] VITALS: BP 138/89
--- NOTE | 2020-04-08 08:15 | NUR ---
RE: Dialysis Dialysis unable to be performed per conference director. Germination Testing Manager to be notified by conference director per Pablo (conference director).
[2020-04-08] MEDS: FERROUS SULFATE 325 MG TAB PO SCH (08:23)
[2020-04-08] MEDS: SEVELAMER 800 MG TAB PO SCH ×3 (08:23→17:01)
[2020-04-08] MEDS: LISINOPRIL 10 MG TAB PO SCH ×2 (08:24→21:57)
[2020-04-08] MEDS: hydrALAZINE HCL 25 MG TAB PO SCH ×2 (08:24→21:57)
[2020-04-08] MEDS: ISOSORBIDE MONONITRATE ER 60 MG TAB PO SCH (08:25)
[2020-04-08] MEDS: CARVEDILOL 12.5 MG TAB PO SCH ×2 (08:25→21:58)
[2020-04-08] MEDS: INSULIN NPH Isophane (HUMAN) 1unit/0.01ml Susp(100units/ml) SC SCH ×2 (08:28→22:00)
[2020-04-08] MEDS: CLOPIDOGREL BISULFATE 75 MG TAB PO SCH (08:28)
--- NOTE | 2020-04-08 08:30 | NUR ---
RE: Medications held Scheduled medication held. Plavix held for pending surgical procedure. Scheduled NPH insulin held. Patient stated "I no like the food here. I'm not going to eat." Different meal offered to the patient. Patient refused. Saltine crackers provided to the patient. Addendum: 04/08/20 at 1004 by La Cai RN Notified Dr. Wesley Pemberton of medications being held. verbalized understanding.
[2020-04-08] MEDS: traMADol HCL 50 MG TAB PO PRN (08:34)
--- NOTE | 2020-04-08 08:39 | NUR ---
Dialysis dressing site is clean, dry and intact.
--- NOTE | 2020-04-08 09:53 | NUR ---
Called patient's per request of patient Patient is agitated at staff. This RN updated patient that surgery is scheduled for tomorrow (04/09/20) per Dr. Wesley Pemberton who spoke with Dr. Jama. Patient stated "They keep putting me off and putting me off. Me no eat. This is an emergency. I just sit here. I've been here for a week now with nothing done." POC translated by staff member. Patient refusing to speak with staff members. Patient requested to speak with her . Patient's contacted and phone call transferred to patient's bedside phone. Staff member assisted patient was answering phone call.
--- NOTE | 2020-04-08 10:04 | NUR ---
MD was at bedside - Dr. Wesley Pemberton. POC discussed with this RN.
--- NOTE | 2020-04-08 10:30 | NUR ---
Patient resting in bed with eyes closed Respirations even and unlabored, no distress noted. Fall precautions in place with call light within reach.
[2020-04-08 10:35] LABS: Albumin 2.5 g/dL (3.4-5.0); Calcium 8.2 mg/dL (8.5-10.1); Potassium 4.4 mmol/L (3.5-5.1)
[2020-04-08 10:38] LABS: BUN/Creatinine Ratio 6.2; Bilirubin, Total 0.5 mg/dL (0.2-1.0); Total Protein 6.5 g/dL (6.4-8.2)
--- NOTE | 2020-04-08 11:20 | NUR ---
RE: scheduled Insulin held Scheduled dose of Insulin per sliding scale order held. Patient stated "I don't eat much. I go low again." Encouraged patient to eat lunch meal. Patient verbalized understanding.
[2020-04-08 12:00] VITALS: BP 143/68
--- NOTE | 2020-04-08 12:14 | NUR ---
was at bedside - Dr. Wiley Castillo RN and Yudy, LAVERNE, was at bedside. Yudy translated for MD. Patient verbalized understanding. Orders received and read back to verify.
[2020-04-08] MEDS: AMITRIPTYLINE HCL 25 MG TAB PO SCH (17:01)
[2020-04-08 17:26] VITALS: BP 146/71
--- NOTE | 2020-04-08 18:05 | NUR ---
was at bedside - Dr. Randall POC discussed with this RN. aware of dialysis not being completed today.
--- NOTE | 2020-04-08 18:40 | NUR ---
Closing note Patient resting in bed with even and unlabored, no distress noted. Fall precautions in place with call light within reach. Personal wheelchair at bedside.
--- NOTE | 2020-04-08 19:04 | NUR ---
Care endorsed to LAVERNE Daly.
--- NOTE | 2020-04-08 20:00 | NUR ---
Opening Shift Note Assumed care of patient, awake and alert. A&Ox4. Patient sitting in bed. No S/S of distress/SOB or pain. Safety measures maintained by keeping the bed locked in lowest position, 2 side rails up, personal items and call light within reach. Instructed on POC and to call for assist PRN, will continue to monitor for changes Q1hr and PRN.
[2020-04-08] MEDS: FAMOTIDINE 20 MG TAB PO SCH (21:58)
[2020-04-08] MEDS: ATORVASTATIN 20 MG TAB PO SCH (22:02)
[2020-04-08 22:42] VITALS: BP 140/77
[2020-04-09 05:33] VITALS: BP 161/89
[2020-04-09] MEDS: FUROSEMIDE 100 MG/10ML VIAL IV SCH ×2 (05:35→18:22)
--- NOTE | 2020-04-09 05:36 | NUR ---
MEDICATION HELD Lasix medication held. legal administrator called and said she will be here before 0600 to perform dialysis and to hold medication
[2020-04-09] MEDS: InsuLIN REG 1unit/0.01ml Soln (100units/ml) SC SCH ×4 (06:27→21:54)
[2020-04-09] MEDS: ACCU-CHEK COMFORT CURVE STRIP VI SCH ×4 (06:28→21:55)
[2020-04-09] MEDS ORDERED: SODIUM CHL 0.9% 1000 ML BAG XX ONE (07:00)
[2020-04-09 07:11] LABS: Basophils # (auto) 0.2 10 ^3/uL (0-0.2); Basophils % (auto) 2.8 % (0.0-2.0); Eosinophils # (auto) 0.3 10 ^3/uL (0-0.8); Eosinophils % (auto) 5.7 % (0.0-7.0); Hematocrit 31.3 % (36.0-46.0); Hemoglobin 10.3 g/dL (12.2-16.2); Lymphocytes # (auto) 1.1 10 ^3/uL (0.4-5.4); Lymphocytes % (auto) 19.2 % (10.0-50.0); Mean Corpuscular Hemoglobin 33.1 pg (28.0-32.0); Mean Corpuscular Volume 100.4 fL (80.0-100.0); Monocytes # (auto) 0.3 10 ^3/uL (0-1.3); Monocytes % (auto) 5.8 % (0.0-12.0); Neutrophils # (auto) 3.6 10 ^3/uL (1.6-8.6); Neutrophils % (auto) 66.5 % (37.0-80.0); Platelet Count (auto) 213 10^3/uL (140-450); Red Blood Cells 3.12 10^6/uL (4.0-5.20); Red Cell Distribution Width 13.2 % (11.8-14.3); White Blood Cell 5.5 10^3/uL (4.4-10.8)
[2020-04-09 07:30] LABS: Calcium 7.8 mg/dL (8.5-10.1); Potassium 3.8 mmol/L (3.5-5.1)
--- NOTE | 2020-04-09 07:30 | NUR ---
Morning note Assuming care of patient at this time. Patient shows no signs or symptoms of distress or shortness of breath. Bed is locked and lowered with side rails up x2. pari mutuel ticket cashier at bedside. Instructed patient on the plan of care for today and to call for assistance as needed. Call light within reach. Will continue to round hourly and as needed.
[2020-04-09 07:32] LABS: BUN/Creatinine Ratio 6.8
[2020-04-09] MEDS: SEVELAMER 800 MG TAB PO SCH ×3 (08:00→18:23)
[2020-04-09] MEDS: CLOPIDOGREL BISULFATE 75 MG TAB PO SCH (09:25)
--- NOTE | 2020-04-09 09:56 | NUR ---
Dialysis Complete Dialysis complete at this time. Per liquor grinding mill operator, 4L taken off. BP: 155/73 and heart rate is 66. No distress noted. Patient resting comfortably in bed.
[2020-04-09] MEDS: ISOSORBIDE MONONITRATE ER 60 MG TAB PO SCH (10:00)
[2020-04-09] MEDS: LISINOPRIL 10 MG TAB PO SCH ×2 (10:00→21:54)
[2020-04-09] MEDS: CARVEDILOL 12.5 MG TAB PO SCH ×2 (10:00→21:53)
[2020-04-09] MEDS: INSULIN NPH Isophane (HUMAN) 1unit/0.01ml Susp(100units/ml) SC SCH ×2 (10:00→23:08)
[2020-04-09] MEDS: FERROUS SULFATE 325 MG TAB PO SCH (10:00)
[2020-04-09] MEDS ORDERED: ROPIVACAINE 0.5% (5MG/ML) 20ML AMPULE IJ ONE (10:56)
--- NOTE | 2020-04-09 11:40 | NUR ---
Call from OR Call from Anjelica INTELLIGENCE DIRECTOR, at this time regarding patient's pending procedure. Instructed LAVERNE Dejesus of patient's blood pressure. Asked if patient can receive blood pressure medications though NPO, per anesthesiologist medications to be held at this time.
[2020-04-09] MEDS: hydrALAZINE HCL 25 MG TAB PO SCH ×2 (11:42→21:53)
[2020-04-09] MEDS ORDERED: ALBUMIN 25% 0 ML IV ONE ×2 (11:49→11:52)
[2020-04-09] MEDS ORDERED: ALBUMIN 5% 0 ML IV ONE (11:51)
--- NOTE | 2020-04-09 11:52 | NUR ---
Nutrition Followup Notes Pt wt is 57.1 kg Pt was awake, sitting up in a chair with no relatives at bedside when rounded this morning. Pt was confused, unable to fully comprehend questions and/or comments. Pt is currently NPO d/t scheduled procedure. Prior to NPO status, pt appetite was good aeb ave 75% PO intake over 3 meals. Pt with no distress. Noted pt is active for HD. Will continue to monitor PO status, skin status, pertinent labs and weight trends. Will f/u in 3-5 days. Est energy needs 7757-3389 kcal (25-30 kcal/kg BW 63kg) Est protein needs 63-82g (1-1.3g/kg BW 63kg r/t ESRD on HD) will reassess prn. LABS: Na 134 L, BUN 26 H, Cr 3.80 H, GFR 13 L, Gluc 113 H, Ca 7.8 L, Alb 2.5 L GI: Pt had 1 BM on 04/07 per RN doc BS: 19 low risk. Refer to wound assessment report for full details. PES: Altered nutrition related labs r/t chronic medical condition aeb pt with elevated RFTs, hypoalb Comments 1) Continue to monitor po intake, labs, skin 2) Refer pt to [facility] on dc 3) Continue current plan of care
--- NOTE | 2020-04-09 12:00 | NUR ---
Patient taken to OR Patient taken to OR at this time.
[2020-04-09] MEDS ORDERED: ceFAZolin 1GM/50ML 50 ML IV ONE (12:02)
[2020-04-09] MEDS ORDERED: MIDAZOLAM HCL 1MG/1ML-2 ML VIAL ONE (12:20)
[2020-04-09] MEDS ORDERED: ROCURONIUM 10MG/ML 10ML VIAL IV ONE (12:20)
[2020-04-09] MEDS ORDERED: fentaNYL CITRATE 100 MCG/2 ML VL ONE (12:35)
[2020-04-09] MEDS ORDERED: NEOMYCIN-BACITRACIN-POLYM 15GM TOP OINT TOP ONE (12:52)
[2020-04-09 13:00] VITALS: BP 156/68
[2020-04-09] MEDS ORDERED: GLYCOPYRROLATE 0.2 MG/ML 1ML VIAL ONE (13:06)
[2020-04-09] MEDS ORDERED: NEOSTIGMINE 1 MG/ML INJ (10mg/10ML VIAL) ONE (13:06)
[2020-04-09] MEDS ORDERED: HYDROmorphone HCL 2 MG/ML VL ONE (13:50)
[2020-04-09] MEDS: HYDROmorphone HCL 2 MG/ML VL IV PRN ×4 (13:52→14:16)
[2020-04-09] MEDS ORDERED: HYDROmorphone HCL 2 MG/ML VL IV PRN (14:00)
[2020-04-09] MEDS ORDERED: ACCU-CHEK COMFORT CURVE STRIP VI ONE (14:00)
[2020-04-09] MEDS ORDERED: NALOXONE HCL 0.4 MG/ML VIAL IV PRN (14:00)
[2020-04-09] MEDS ORDERED: ONDANSETRON HCL 4 MG/2 ML VIAL IV PRN (14:00)
--- NOTE | 2020-04-09 16:23 | NUR ---
assessment Patient is in a lot of pain and refused to sign her IM. I will try again tomorrow for my initial assessment and for IM to be signed. Addendum: 04/09/20 at 1624 by Mellisa MAYO Amended: Links added.
[2020-04-09 17:00] VITALS: BP 155/65
[2020-04-09] MEDS: traMADol HCL 50 MG TAB PO PRN (17:01)
[2020-04-09] MEDS: AMITRIPTYLINE HCL 25 MG TAB PO SCH (18:22)
--- NOTE | 2020-04-09 19:11 | NUR ---
Closing Shift Note Patient resting in bed. No distress noted. Will endorse care to the night manager RN.
[2020-04-09] MEDS: FAMOTIDINE 20 MG TAB PO SCH (21:54)
[2020-04-09] MEDS: ATORVASTATIN 20 MG TAB PO SCH (21:54)
[2020-04-09 22:00] VITALS: BP 137/53
[2020-04-09] MEDS ORDERED: HYDROcodone-ACET 10/325MG TAB PO ONE (22:15)
[2020-04-10 05:00] VITALS: BP 157/68
[2020-04-10] MEDS: ACCU-CHEK COMFORT CURVE STRIP VI SCH ×2 (06:10→11:30)
[2020-04-10] MEDS: InsuLIN REG 1unit/0.01ml Soln (100units/ml) SC SCH ×2 (06:10→11:30)
[2020-04-10] MEDS: FUROSEMIDE 100 MG/10ML VIAL IV SCH (06:16)
[2020-04-10] MEDS ORDERED: HYDROcodone-ACET 10/325MG TAB PO PRN (08:15)
[2020-04-10] MEDS: SEVELAMER 800 MG TAB PO SCH ×2 (08:51→12:00)
[2020-04-10] MEDS: hydrALAZINE HCL 25 MG TAB PO SCH (08:52)
[2020-04-10] MEDS: CLOPIDOGREL BISULFATE 75 MG TAB PO SCH (08:52)
[2020-04-10] MEDS: CARVEDILOL 12.5 MG TAB PO SCH (08:54)
[2020-04-10] MEDS: LISINOPRIL 10 MG TAB PO SCH (08:54)
[2020-04-10] MEDS: FERROUS SULFATE 325 MG TAB PO SCH (08:55)
[2020-04-10] MEDS: ISOSORBIDE MONONITRATE ER 60 MG TAB PO SCH (08:55)
[2020-04-10] MEDS: INSULIN NPH Isophane (HUMAN) 1unit/0.01ml Susp(100units/ml) SC SCH (08:58)
[2020-04-10 09:00] VITALS: BP 153/76
--- NOTE | 2020-04-10 11:44 | NUR ---
assessment Patient is a 54 year old female who is in pain and asked that I call her Ovi. Per Ovi prior to admission patient lived home with him and family and needed assistance. Patient is legally blind. Patient is on service with [employer]. Patient has a wheelchair and fww for home use. Patients PCP is Dr Rosa. I informed Ovi that patient has a ss consult for home health and for FWW. Per Ovi patient to resume with [facility]. Patient does not need fww since she already has a fww and a wheelchair. Per Ovi he or his son will transport patient home on discharge. I have sent ss consult to [employer] [facility]. Per Yeyo service will resume on 04/12/2020. Ovi has been notified. Ovi verbalized understanding and agreed to discharge plan home. Addendum: 04/10/20 at 1148 by Mellisa MAYO Amended: Links added.
[2020-04-10 13:14] VITALS: BP 144/67
[2020-04-10 13:34] VITALS: BP 144/67
--- NOTE | 2020-04-10 16:30 | NUR ---
Discharge Discharge instructions given as ordered. Encourage to follow up with PMD as instructed. All questions and concerns addressed. Patient verbalized understanding. Medication reconciliation form completed and copy given to patient. IV removed with catheter intact, pressure dressing applied. Telemetry unit returned to ICU. Patient taken to vehicle via wheelchair with all personal belongings, accompanied by staff and family member. No distress noted at time of departure. Son to waste picker patient. Explained to patient's son about patient's upcoming doctor's appointments with Dr. Jama and Dr. Rosa. Explained to son that patient should not bear weight to the right foot. Patient's son verbalized understanding. Patient took home wheelchair with her. Son placed in trunk.
--- NOTE | 2020-04-10 16:30 | NUR ---
Prescription [place] prescription given to son. Informed son to take to pharmacy.
[2020-04-11] MEDS ORDERED: SODIUM CHL 0.9% 1000 ML BAG XX ONE (07:00)
[2020-04-11] MEDS ORDERED: EPOETIN ALFA 4,000 UNIT/ML VL SC ONE (21:00)
== END 2020-04-10 17:00 | disposition home health service (06) | DRG 492 ==
LOC: ER 10:16 → TELE 10:17 → TELE-CENTR 20:15
PROVIDERS: ADMIT Internal Medicine; ATTEND Family Medicine
PROC: 5A1D70Z Performance of Urinary Filtration, Intermittent, Less than 6 Hours Per Day (ICD-10-PCS; 2020-04-04)
PROC: 5A1D70Z Performance of Urinary Filtration, Intermittent, Less than 6 Hours Per Day (ICD-10-PCS; 2020-04-06)
PROC: 0W9G3ZZ Drainage of Peritoneal Cavity, Percutaneous Approach (ICD-10-PCS; 2020-04-07)
PROC: 5A1D70Z Performance of Urinary Filtration, Intermittent, Less than 6 Hours Per Day (ICD-10-PCS; 2020-04-08)
PROC: 5A1D70Z Performance of Urinary Filtration, Intermittent, Less than 6 Hours Per Day (ICD-10-PCS; 2020-04-09)
PROC: 0QSJ04Z Reposition Right Fibula with Internal Fixation Device, Open Approach (ICD-10-PCS; principal; 2020-04-09 12:11)
DX: S82.831A Other fracture of upper and lower end of right fibula, initial encounter for closed fracture (principal); I21.4 Non-ST elevation (NSTEMI) myocardial infarction; N18.6 End stage renal disease; R18.8 Other ascites; E44.0 Moderate protein-calorie malnutrition; I13.2 Hypertensive heart and chronic kidney disease with heart failure and with stage 5 chronic kidney disease, or end stage renal disease; I50.9 Heart failure, unspecified; Z99.2 Dependence on renal dialysis; E11.65 Type 2 diabetes mellitus with hyperglycemia; K74.60 Unspecified cirrhosis of liver; D63.8 Anemia in other chronic diseases classified elsewhere; E11.22 Type 2 diabetes mellitus with diabetic chronic kidney disease; I25.10 Atherosclerotic heart disease of native coronary artery without angina pectoris; M10.9 Gout, unspecified; E11.319 Type 2 diabetes mellitus with unspecified diabetic retinopathy without macular edema; W18.39XA Other fall on same level, initial encounter; E78.5 Hyperlipidemia, unspecified; F32.9 Major depressive disorder, single episode, unspecified; H54.8 Legal blindness, as defined in USA; M85.80 Other specified disorders of bone density and structure, unspecified site; Z82.3 Family history of stroke; Z82.49 Family history of ischemic heart disease and other diseases of the circulatory system; Z83.3 Family history of diabetes mellitus; Y93.89 Activity, other specified; Y92.89 Other specified places as the place of occurrence of the external cause; Y99.8 Other external cause status; Z68.25 Body mass index [BMI] 25.0-25.9, adult
CPT/HCPCS: 10022; 36415; 49082; 71045; 73600; 76942; 80048; 80053; 80307; 81001; 82550; 82728; 82962; 83036; 83540; 83550; 83735; 83880; 84100; 84484; 85025; 85610; 85730; 86850; 86900; 86901; 87081; 87086; 90935; 93005; 93306; 93971; 99291; G0378; J0690; J0885; J1642; J1815; J2250; P9047

== ENCOUNTER 2020-05-07 08:40 | Inpatient (IN) | payer MEDICARE, MEDICAID ==
[~2020-05-07] VITALS: Ht 162.6 cm; Wt 64.3 kg
[~2020-05-07 08:40] MED LIST changes: +LISI-648 PO; -LISI10TA6 PO
[2020-05-07 09:17] LABS: Basophils # (auto) 0.1 10 ^3/uL (0-0.2); Eosinophils # (auto) 0.9 10 ^3/uL (0-0.8); Hemoglobin 11.1 g/dL (12.2-16.2); Lymphocytes # (auto) 0.7 10 ^3/uL (0.4-5.4); Monocytes # (auto) 0.5 10 ^3/uL (0-1.3); Monocytes % (auto) 7.9 % (0.0-12.0); Neutrophils % (auto) 66.7 % (37.0-80.0); Red Cell Distribution Width 14.5 % (11.8-14.3)
[2020-05-07 09:19] LABS: Basophils % (auto) 1.2 % (0.0-2.0); Hematocrit 35.2 % (36.0-46.0); Lymphocytes % (auto) 10.2 % (10.0-50.0); Mean Corpuscular Hemoglobin 32.8 pg (28.0-32.0); Mean Corpuscular Hgb Conc. 31.4 g/dL (32.0-36.0); Mean Corpuscular Volume 104.5 fL (80.0-100.0); Neutrophils # (auto) 4.5 10 ^3/uL (1.6-8.6); Platelet Count (auto) 154 10^3/uL (140-450); Red Blood Cells 3.37 10^6/uL (4.0-5.20); White Blood Cell 6.7 10^3/uL (4.4-10.8)
[2020-05-07 09:38] LABS: Albumin 2.8 g/dL (3.4-5.0); Calcium 8.5 mg/dL (8.5-10.1); Magnesium 2.2 mg/dL (1.6-2.6); Potassium 4.8 mmol/L (3.5-5.1)
[2020-05-07 09:45] LABS: BUN/Creatinine Ratio 10.6; Bilirubin, Total 0.8 mg/dL (0.2-1.0); Total Protein 6.4 g/dL (6.4-8.2)
[2020-05-07] MEDS ORDERED: SODIUM CHLORIDE 0.9% 1,000 ML IV ONE (12:54)
[2020-05-07] MEDS ORDERED: NITROGLYCERIN 0.4 MG SL TAB SL PRN (15:30)
[2020-05-07] MEDS ORDERED: MORPHINE SULF INJ 2 MG/ML SYRINGE 1ML IV PRN (15:30)
[2020-05-07] MEDS ORDERED: cefTRIAXone 1GM/50ML D5W 50 ML IV ONE (15:45)
[2020-05-07] MEDS ORDERED: DEXTROSE (50%) 50ML SYRG IV PRN (18:30)
[2020-05-07] MEDS ORDERED: hydrALAZINE HCL 20 MG/ML VL IV PRN (18:30)
[2020-05-07 19:13] LABS: Urine Bacteria FEW /hpf (None Seen); Urine Blood Negative /uL (Negative); Urine Hyaline Cast FEW /lpf (0 - 2); Urine Specific Gravity 1.014 (1.001-1.035); Urine WBC 29 /hpf (0 - 5)
[2020-05-07 20:00] VITALS: BP 145/73
[2020-05-07 22:00] VITALS: BP 152/83
[2020-05-07] MEDS: InsuLIN REG 1unit/0.01ml Soln (100units/ml) SC SCH (22:04)
[2020-05-07] MEDS: ACCU-CHEK COMFORT CURVE STRIP VI SCH (22:04)
[2020-05-08] MEDS ORDERED: FUROSEMIDE 40 MG/4 ML VIAL IV ONE (03:30)
[2020-05-08] MEDS ORDERED: ONDANSETRON HCL 4 MG/2 ML VIAL IV PRN (04:00)
[2020-05-08] MEDS ORDERED: MORPHINE SULF INJ 2 MG/ML SYRINGE 1ML IV PRN ×2 (04:00)
[2020-05-08] MEDS ORDERED: DOCUSATE SOD 100 MG CAP PO PRN (04:00)
[2020-05-08] MEDS ORDERED: ACETAMINOPHEN 325 MG TAB PO PRN (04:00)
[2020-05-08] MEDS ORDERED: HYDROcodone-ACET 5/325MG TAB PO PRN (04:00)
[2020-05-08] MEDS ORDERED: NITROGLYCERIN 0.4 MG SL TAB SL PRN (04:00)
[2020-05-08] MEDS ORDERED: LORazepam 0.5 MG TAB PO PRN (04:00)
[2020-05-08 05:00] VITALS: BP 122/77
[2020-05-08 05:10] LABS: Urine Bacteria FEW /hpf (None Seen); Urine Blood Negative /uL (Negative); Urine Hyaline Cast FEW /lpf (0 - 2); Urine Specific Gravity 1.016 (1.001-1.035); Urine WBC 25 /hpf (0 - 5)
[2020-05-08 05:34] LABS: Basophils # (auto) 0.1 10 ^3/uL (0-0.2); Basophils % (auto) 1.8 % (0.0-2.0); Eosinophils # (auto) 0.6 10 ^3/uL (0-0.8); Eosinophils % (auto) 10.3 % (0.0-7.0); Hematocrit 34.4 % (36.0-46.0); Hemoglobin 11.2 g/dL (12.2-16.2); Lymphocytes # (auto) 0.6 10 ^3/uL (0.4-5.4); Lymphocytes % (auto) 10.5 % (10.0-50.0); Mean Corpuscular Hemoglobin 33.6 pg (28.0-32.0); Mean Corpuscular Hgb Conc. 32.5 g/dL (32.0-36.0); Mean Corpuscular Volume 103.4 fL (80.0-100.0); Monocytes # (auto) 0.5 10 ^3/uL (0-1.3); Monocytes % (auto) 7.9 % (0.0-12.0); Neutrophils # (auto) 4.3 10 ^3/uL (1.6-8.6); Neutrophils % (auto) 69.5 % (37.0-80.0); Platelet Count (auto) 147 10^3/uL (140-450); Red Blood Cells 3.33 10^6/uL (4.0-5.20); Red Cell Distribution Width 14.2 % (11.8-14.3); White Blood Cell 6.2 10^3/uL (4.4-10.8)
[2020-05-08 05:50] LABS: INR 1.22 (0.9-1.15); Partial Thromboplastin Time 28.5 sec (23.0-31.2)
[2020-05-08 05:51] LABS: Albumin 2.6 g/dL (3.4-5.0); Calcium 8.1 mg/dL (8.5-10.1); Potassium 4.6 mmol/L (3.5-5.1)
[2020-05-08 05:53] LABS: BUN/Creatinine Ratio 10.7; Bilirubin, Total 0.7 mg/dL (0.2-1.0); Magnesium 2.2 mg/dL (1.6-2.6); Phosphorus 3.5 mg/dL (2.5-4.90); Total Protein 6.2 g/dL (6.4-8.2)
[2020-05-08] MEDS: FUROSEMIDE 40 MG/4 ML VIAL IV SCH ×2 (06:16→18:05)
[2020-05-08] MEDS: ACCU-CHEK COMFORT CURVE STRIP VI SCH ×4 (06:26→22:26)
[2020-05-08] MEDS: InsuLIN REG 1unit/0.01ml Soln (100units/ml) SC SCH ×4 (06:33→22:31)
[2020-05-08 08:00] VITALS: BP 145/73
[2020-05-08 09:00] VITALS: BP 154/82
[2020-05-08] MEDS: ISOSORBIDE MONONITRATE ER 60 MG TAB PO SCH (10:00)
[2020-05-08] MEDS: LISINOPRIL 10 MG TAB PO SCH (10:00)
[2020-05-08] MEDS: hydrALAZINE HCL 25 MG TAB PO SCH ×2 (10:00→22:25)
[2020-05-08] MEDS: SEVELAMER 800 MG TAB PO SCH ×3 (10:29→18:04)
[2020-05-08] MEDS: FERROUS SULFATE 325 MG TAB PO SCH ×3 (10:29→18:04)
[2020-05-08] MEDS: cefTRIAXone 1GM/50ML D5W 50 ML IV SCH (10:30)
[2020-05-08] MEDS: FAMOTIDINE 20 MG TAB PO SCH (10:30)
[2020-05-08] MEDS ORDERED: ALBUMIN 25% 100 ML IV ONE (10:45)
[2020-05-08 12:44] VITALS: BP 136/76
[2020-05-08 16:31] VITALS: BP 148/76
[2020-05-08] MEDS ORDERED: AMITRIPTYLINE HCL 25 MG TAB PO SCH (18:00)
[2020-05-08 21:43] VITALS: BP 155/81
[2020-05-08] MEDS ORDERED: ATORVASTATIN 20 MG TAB PO SCH (22:00)
[2020-05-09 05:00] VITALS: BP 162/84
[2020-05-09] MEDS: InsuLIN REG 1unit/0.01ml Soln (100units/ml) SC SCH ×2 (06:14→11:30)
[2020-05-09] MEDS: ACCU-CHEK COMFORT CURVE STRIP VI SCH ×2 (06:15→12:01)
[2020-05-09] MEDS: FUROSEMIDE 40 MG/4 ML VIAL IV SCH (06:17)
[2020-05-09] MEDS: FERROUS SULFATE 325 MG TAB PO SCH ×2 (08:04→12:00)
[2020-05-09] MEDS: SEVELAMER 800 MG TAB PO SCH ×2 (08:04→12:00)
[2020-05-09] MEDS: cefTRIAXone 1GM/50ML D5W 50 ML IV SCH (08:06)
[2020-05-09 09:00] VITALS: BP 176/87
[2020-05-09] MEDS: ISOSORBIDE MONONITRATE ER 60 MG TAB PO SCH (10:00)
[2020-05-09] MEDS: LISINOPRIL 10 MG TAB PO SCH (10:00)
[2020-05-09] MEDS ORDERED: SODIUM CHL 0.9% 1000 ML BAG XX ONE (10:00)
[2020-05-09] MEDS: FAMOTIDINE 20 MG TAB PO SCH (10:00)
[2020-05-09] MEDS: hydrALAZINE HCL 25 MG TAB PO SCH (10:00)
[2020-05-09 11:27] VITALS: BP 162/84
[2020-05-09 13:00] VITALS: BP 134/67
== END 2020-05-09 15:01 | disposition home or self-care (01) | DRG 432 ==
LOC: ER 08:40 → TELE 08:41 → TELE-CENTR 17:11
PROVIDERS: ADMIT Hospitalist; ATTEND Family Medicine
PROC: 0W9G3ZZ Drainage of Peritoneal Cavity, Percutaneous Approach (ICD-10-PCS; principal; 2020-05-08)
PROC: 5A1D70Z Performance of Urinary Filtration, Intermittent, Less than 6 Hours Per Day (ICD-10-PCS; 2020-05-09)
DX: K74.60 Unspecified cirrhosis of liver (principal); N18.6 End stage renal disease; I50.43 Acute on chronic combined systolic (congestive) and diastolic (congestive) heart failure; I13.2 Hypertensive heart and chronic kidney disease with heart failure and with stage 5 chronic kidney disease, or end stage renal disease; N39.0 Urinary tract infection, site not specified; I42.9 Cardiomyopathy, unspecified; R18.8 Other ascites; H54.8 Legal blindness, as defined in USA; E11.319 Type 2 diabetes mellitus with unspecified diabetic retinopathy without macular edema; E11.21 Type 2 diabetes mellitus with diabetic nephropathy; D63.1 Anemia in chronic kidney disease; E11.22 Type 2 diabetes mellitus with diabetic chronic kidney disease; E78.5 Hyperlipidemia, unspecified; F32.9 Major depressive disorder, single episode, unspecified; I25.10 Atherosclerotic heart disease of native coronary artery without angina pectoris; M1A.9XX0 Chronic gout, unspecified, without tophus (tophi); S92.901A Unspecified fracture of right foot, initial encounter for closed fracture; X58.XXXA Exposure to other specified factors, initial encounter; I27.20 Pulmonary hypertension, unspecified; Z99.2 Dependence on renal dialysis; Z79.02 Long term (current) use of antithrombotics/antiplatelets; Z79.01 Long term (current) use of anticoagulants; Z79.4 Long term (current) use of insulin; Z79.899 Other long term (current) drug therapy; Z82.3 Family history of stroke; Z82.49 Family history of ischemic heart disease and other diseases of the circulatory system; Z87.440 Personal history of urinary (tract) infections; Z95.5 Presence of coronary angioplasty implant and graft; Z83.3 Family history of diabetes mellitus; Y93.89 Activity, other specified; Y92.89 Other specified places as the place of occurrence of the external cause; Y99.8 Other external cause status
CPT/HCPCS: 10022; 36415; 71046; 74176; 76700; 76942; 80053; 81001; 82140; 82150; 82962; 83690; 83735; 84100; 85025; 85610; 85730; 87040; 87086; 93005; 93306; G0378; J0696; J1815; J2405; P9047

== ENCOUNTER 2020-05-28 17:27 | Inpatient (IN) | payer MEDICARE, MEDICAID ==
[~2020-05-28] VITALS: Ht 162.6 cm; Wt 63.1 kg
[2020-05-28 20:11] LABS: Basophils # (auto) 0.1 10 ^3/uL (0-0.2); Lymphocytes # (auto) 0.7 10 ^3/uL (0.4-5.4); Neutrophils # (auto) 4.4 10 ^3/uL (1.6-8.6); White Blood Cell 6.7 10^3/uL (4.4-10.8)
[2020-05-28 20:13] LABS: Basophils % (auto) 1.2 % (0.0-2.0); Eosinophils # (auto) 0.9 10 ^3/uL (0-0.8); Hematocrit 31.7 % (36.0-46.0); Hemoglobin 10.5 g/dL (12.2-16.2); Lymphocytes % (auto) 10.5 % (10.0-50.0); Mean Corpuscular Hemoglobin 33.9 pg (28.0-32.0); Mean Corpuscular Hgb Conc. 33.3 g/dL (32.0-36.0); Mean Corpuscular Volume 101.8 fL (80.0-100.0); Monocytes # (auto) 0.6 10 ^3/uL (0-1.3); Monocytes % (auto) 8.8 % (0.0-12.0); Neutrophils % (auto) 65.5 % (37.0-80.0); Platelet Count (auto) 160 10^3/uL (140-450); Red Blood Cells 3.11 10^6/uL (4.0-5.20); Red Cell Distribution Width 13.1 % (11.8-14.3)
[2020-05-28] MEDS ORDERED: ASPirin-EC 81 mg tab PO ONE (20:45)
[2020-05-28 20:51] LABS: Albumin 2.7 g/dL (3.4-5.0); Calcium 7.8 mg/dL (8.5-10.1); Potassium 4.1 mmol/L (3.5-5.1)
[2020-05-28 20:56] LABS: BUN/Creatinine Ratio 8.1; Bilirubin, Total 0.6 mg/dL (0.2-1.0); Total Protein 6.3 g/dL (6.4-8.2)
[2020-05-28] MEDS ORDERED: FUROSEMIDE 40 MG/4 ML VIAL IV ONE (22:00)
[2020-05-28] MEDS ORDERED: ONDANSETRON HCL 4 MG/2 ML VIAL IV PRN (22:00)
[2020-05-28] MEDS ORDERED: MORPHINE SULF INJ 2 MG/ML SYRINGE 1ML IV PRN (22:00)
[2020-05-28] MEDS ORDERED: TEMAZEPAM 15 MG CAP PO PRN (22:00)
[2020-05-28] MEDS ORDERED: ASCORBIC ACID 500 MG TAB PO ONE (22:00)
[2020-05-28] MEDS ORDERED: DEXTROSE (50%) 50ML SYRG IV PRN (22:00)
[2020-05-28] MEDS ORDERED: NITROGLYCERIN 0.4 MG SL TAB SL PRN (22:00)
[2020-05-28] MEDS ORDERED: ZINC SULFATE 220mg CAP or TAB PO ONE (22:00)
[2020-05-28] MEDS ORDERED: DOXYCYCLINE 100MG/250ML 250 ML IV ONE (22:00)
[2020-05-28] MEDS: ACCU-CHEK COMFORT CURVE STRIP VI SCH (22:00)
[2020-05-28] MEDS: ATORVASTATIN 20 MG TAB PO SCH (22:54)
[2020-05-28] MEDS: hydrALAZINE HCL 25 MG TAB PO SCH (22:55)
[2020-05-28] MEDS: DOXYCYCLINE 100MG/250ML 250 ML IV SCH (23:23)
[2020-05-28] MEDS: InsuLIN REG 1unit/0.01ml Soln (100units/ml) SC SCH (23:24)
[2020-05-28 23:35] LABS: Red Cell Distribution Width 13.3 % (11.8-14.3)
[2020-05-28 23:37] LABS: Hematocrit 34.6 % (36.0-46.0); Hemoglobin 11.5 g/dL (12.2-16.2); Mean Corpuscular Hemoglobin 33.8 pg (28.0-32.0); Mean Corpuscular Hgb Conc. 33.2 g/dL (32.0-36.0); Mean Corpuscular Volume 102.1 fL (80.0-100.0); Platelet Count (auto) 166 10^3/uL (140-450); Red Blood Cells 3.39 10^6/uL (4.0-5.20); White Blood Cell 6.7 10^3/uL (4.4-10.8)
[2020-05-28 23:45] LABS: Band Neutrophils % (manual) 0; Basophils % (manual) 0 (0.0-2.0); Blast Cells 0; Myelocytes % 0; Promyelocytes % 0; Reactive Lymphocytes 0
[2020-05-28 23:49] LABS: INR 1.13 (0.9-1.15); Partial Thromboplastin Time 25.4 sec (23.0-31.2)
[2020-05-28 23:56] LABS: Eosinophils % (manual) 12 (0-7); Lymphocytes % (manual) 14 (10.0-50.0); Metamyelocytes % 1; Monocytes % (manual) 4 (0-12)
[2020-05-29 01:21] VITALS: BP 154/86
[2020-05-29 05:00] VITALS: BP 156/82
[2020-05-29] MEDS: FUROSEMIDE 40 MG/4 ML VIAL IV SCH ×2 (06:22→18:00)
[2020-05-29] MEDS: InsuLIN REG 1unit/0.01ml Soln (100units/ml) SC SCH ×4 (06:23→22:49)
[2020-05-29] MEDS: ACCU-CHEK COMFORT CURVE STRIP VI SCH ×4 (06:23→22:26)
[2020-05-29 06:59] LABS: Basophils # (auto) 0.1 10 ^3/uL (0-0.2); Monocytes # (auto) 0.5 10 ^3/uL (0-1.3); Monocytes % (auto) 8.2 % (0.0-12.0); Red Cell Distribution Width 13.2 % (11.8-14.3)
[2020-05-29 07:01] LABS: Basophils % (auto) 0.9 % (0.0-2.0); Eosinophils # (auto) 0.9 10 ^3/uL (0-0.8); Eosinophils % (auto) 14.4 % (0.0-7.0); Hematocrit 31.3 % (36.0-46.0); Hemoglobin 10.3 g/dL (12.2-16.2); Lymphocytes # (auto) 0.7 10 ^3/uL (0.4-5.4); Lymphocytes % (auto) 9.9 % (10.0-50.0); Mean Corpuscular Hemoglobin 33.5 pg (28.0-32.0); Mean Corpuscular Volume 101.8 fL (80.0-100.0); Neutrophils # (auto) 4.4 10 ^3/uL (1.6-8.6); Neutrophils % (auto) 66.6 % (37.0-80.0); Platelet Count (auto) 157 10^3/uL (140-450); Red Blood Cells 3.08 10^6/uL (4.0-5.20); White Blood Cell 6.6 10^3/uL (4.4-10.8)
[2020-05-29 07:12] LABS: Albumin 2.6 g/dL (3.4-5.0); BUN/Creatinine Ratio 7.9; Calcium 7.8 mg/dL (8.5-10.1); Potassium 4.1 mmol/L (3.5-5.1)
[2020-05-29 07:14] LABS: Bilirubin, Total 0.6 mg/dL (0.2-1.0); Total Protein 5.9 g/dL (6.4-8.2)
[2020-05-29] MEDS: SEVELAMER 800 MG TAB PO SCH ×4 (08:00→19:10)
[2020-05-29 08:41] VITALS: BP 142/81
[2020-05-29 09:27] LABS: Urine Bacteria FEW /hpf (None Seen); Urine Blood Negative /uL (Negative); Urine Specific Gravity 1.007 (1.001-1.035); Urine WBC 7 /hpf (0 - 5)
[2020-05-29] MEDS: APIXABAN 2.5 MG TAB PO SCH ×2 (10:00→10:33)
[2020-05-29] MEDS ORDERED: ASPirin 81 mg TAB PO SCH (10:00)
[2020-05-29] MEDS: CLOPIDOGREL BISULFATE 75 MG TAB PO SCH ×2 (10:00→10:33)
[2020-05-29] MEDS: DOXYCYCLINE 100MG/250ML 250 ML IV SCH ×2 (10:32→22:26)
[2020-05-29] MEDS: hydrALAZINE HCL 25 MG TAB PO SCH ×2 (10:32→22:26)
[2020-05-29] MEDS: CARVEDILOL 12.5 MG TAB PO SCH (10:33)
[2020-05-29 12:14] VITALS: BP 120/66
[2020-05-29] MEDS ORDERED: HYDROcodone-ACET 5/325MG TAB PO PRN (13:15)
[2020-05-29 16:52] VITALS: BP 147/77
[2020-05-29 22:00] VITALS: BP 168/97
[2020-05-29] MEDS: ATORVASTATIN 20 MG TAB PO SCH (22:26)
[2020-05-30 05:00] VITALS: BP 186/94
[2020-05-30] MEDS: FUROSEMIDE 40 MG/4 ML VIAL IV SCH ×2 (05:58→18:00)
[2020-05-30] MEDS: InsuLIN REG 1unit/0.01ml Soln (100units/ml) SC SCH ×3 (06:25→17:00)
[2020-05-30] MEDS: ACCU-CHEK COMFORT CURVE STRIP VI SCH ×3 (06:26→17:00)
[2020-05-30 06:39] LABS: Basophils # (auto) 0.1 10 ^3/uL (0-0.2); Basophils % (auto) 1.7 % (0.0-2.0); Eosinophils # (auto) 0.9 10 ^3/uL (0-0.8); Hematocrit 33.1 % (36.0-46.0); Hemoglobin 10.7 g/dL (12.2-16.2); Lymphocytes # (auto) 0.6 10 ^3/uL (0.4-5.4); Lymphocytes % (auto) 10.1 % (10.0-50.0); Mean Corpuscular Hemoglobin 32.9 pg (28.0-32.0); Mean Corpuscular Hgb Conc. 32.3 g/dL (32.0-36.0); Monocytes # (auto) 0.5 10 ^3/uL (0-1.3); Monocytes % (auto) 7.9 % (0.0-12.0); Neutrophils # (auto) 4.2 10 ^3/uL (1.6-8.6); Neutrophils % (auto) 66.3 % (37.0-80.0); Platelet Count (auto) 168 10^3/uL (140-450); Red Blood Cells 3.25 10^6/uL (4.0-5.20); Red Cell Distribution Width 13.3 % (11.8-14.3); White Blood Cell 6.4 10^3/uL (4.4-10.8)
[2020-05-30 06:52] LABS: % Iron Saturation 27.2 % (15-50)
[2020-05-30] MEDS: CARVEDILOL 12.5 MG TAB PO SCH (06:52)
[2020-05-30] MEDS: hydrALAZINE HCL 25 MG TAB PO SCH (06:52)
[2020-05-30 06:57] LABS: Calcium 8.1 mg/dL (8.5-10.1); Potassium 4.6 mmol/L (3.5-5.1)
[2020-05-30] MEDS ORDERED: SODIUM CHL 0.9% 1000 ML BAG XX ONE (07:00)
[2020-05-30 09:00] VITALS: BP 184/83
[2020-05-30] MEDS ORDERED: ASPirin 81 mg TAB PO SCH (10:00)
[2020-05-30] MEDS: DOXYCYCLINE 100MG/250ML 250 ML IV SCH (10:29)
[2020-05-30] MEDS: SEVELAMER 800 MG TAB PO SCH ×3 (10:29→18:00)
[2020-05-30] MEDS: CLOPIDOGREL BISULFATE 75 MG TAB PO SCH (10:29)
[2020-05-30 13:00] VITALS: BP 127/83
[2020-05-30 17:00] VITALS: BP 139/70
[2020-05-30 17:35] VITALS: BP 139/70
== END 2020-05-30 18:30 | disposition home or self-care (01) | DRG 280 ==
LOC: EDBD 17:27 → ER 17:27 → TELE 17:28 → TELE-EAST 23:31 → TELE-CENTR 05-29 17:30
PROVIDERS: ADMIT Nurse Practitioner; ATTEND Internal Medicine
PROC: 0W9G3ZZ Drainage of Peritoneal Cavity, Percutaneous Approach (ICD-10-PCS; principal; 2020-05-30)
PROC: 5A1D70Z Performance of Urinary Filtration, Intermittent, Less than 6 Hours Per Day (ICD-10-PCS; 2020-05-30)
DX: I13.2 Hypertensive heart and chronic kidney disease with heart failure and with stage 5 chronic kidney disease, or end stage renal disease (principal); N18.6 End stage renal disease; I21.A1 Myocardial infarction type 2; I50.23 Acute on chronic systolic (congestive) heart failure; R18.8 Other ascites; K74.60 Unspecified cirrhosis of liver; I50.82 Biventricular heart failure; H54.7 Unspecified visual loss; D63.1 Anemia in chronic kidney disease; Z20.828 Contact with and (suspected) exposure to other viral communicable diseases; I48.91 Unspecified atrial fibrillation; E78.5 Hyperlipidemia, unspecified; F32.9 Major depressive disorder, single episode, unspecified; E11.22 Type 2 diabetes mellitus with diabetic chronic kidney disease; Z79.4 Long term (current) use of insulin; Z82.49 Family history of ischemic heart disease and other diseases of the circulatory system; Z82.3 Family history of stroke; Z83.3 Family history of diabetes mellitus; Z95.5 Presence of coronary angioplasty implant and graft; Z99.2 Dependence on renal dialysis
CPT/HCPCS: 10022; 36415; 71045; 76942; 80048; 80053; 81001; 82962; 83540; 83550; 83605; 83735; 83880; 84484; 85007; 85025; 85027; 85610; 85730; 87040; 87081; 87426; 90935; 93005; G0378; J1815; J3490

== ENCOUNTER 2020-06-05 08:55 | Inpatient (IN) | payer MEDICARE, MEDICAID ==
[~2020-06-05] VITALS: Ht 162.6 cm; Wt 61.7 kg
[2020-06-05] MEDS ORDERED: ASPirin 81 mg TAB PO ONE (09:45)
[2020-06-05 09:53] LABS: Eosinophils # (auto) 0.4 10 ^3/uL (0-0.8); Hemoglobin 11.6 g/dL (12.2-16.2)
[2020-06-05 09:54] LABS: Basophils # (auto) 0.1 10 ^3/uL (0-0.2); Basophils % (auto) 0.9 % (0.0-2.0); Eosinophils % (auto) 3.6 % (0.0-7.0); Hematocrit 35.4 % (36.0-46.0); Lymphocytes # (auto) 0.7 10 ^3/uL (0.4-5.4); Lymphocytes % (auto) 6.2 % (10.0-50.0); Mean Corpuscular Hemoglobin 33.3 pg (28.0-32.0); Mean Corpuscular Hgb Conc. 32.7 g/dL (32.0-36.0); Monocytes % (auto) 9.4 % (0.0-12.0); Neutrophils # (auto) 8.7 10 ^3/uL (1.6-8.6); Neutrophils % (auto) 79.9 % (37.0-80.0); Platelet Count (auto) 168 10^3/uL (140-450); Red Blood Cells 3.47 10^6/uL (4.0-5.20); Red Cell Distribution Width 13.8 % (11.8-14.3); White Blood Cell 10.9 10^3/uL (4.4-10.8)
[2020-06-05 10:24] LABS: Albumin 2.5 g/dL (3.4-5.0); Calcium 8.7 mg/dL (8.5-10.1); Potassium 4.6 mmol/L (3.5-5.1)
[2020-06-05 10:31] LABS: Bilirubin, Total 0.7 mg/dL (0.2-1.0); Total Protein 6.2 g/dL (6.4-8.2)
[2020-06-05 12:16] LABS: Urine Bacteria FEW /hpf (None Seen); Urine Blood Negative /uL (Negative); Urine Hyaline Cast FEW /lpf (0 - 2); Urine Specific Gravity 1.013 (1.001-1.035); Urine WBC 5 /hpf (0 - 5)
[2020-06-05] MEDS ORDERED: ENOXAPARIN SOD 60 MG/0.6 ML SYRINGE SC ONE (12:30)
[2020-06-05] MEDS ORDERED: FUROSEMIDE 20 MG/2 ML VIAL IV ONE (12:30)
[2020-06-05] MEDS ORDERED: NITROGLYCERIN 0.4 MG SL TAB SL PRN (13:30)
[2020-06-05] MEDS ORDERED: TEMAZEPAM 15 MG CAP PO PRN (13:30)
[2020-06-05] MEDS ORDERED: DOCUSATE SOD 100 MG CAP PO PRN (13:30)
[2020-06-05] MEDS ORDERED: ACETAMINOPHEN 325 MG TAB PO PRN (13:30)
[2020-06-05] MEDS ORDERED: MORPHINE SULF INJ 2 MG/ML SYRINGE 1ML IV PRN (13:30)
[2020-06-05] MEDS ORDERED: ONDANSETRON HCL 4 MG/2 ML VIAL IV PRN (13:30)
[2020-06-05] MEDS ORDERED: FAMOTIDINE 20 MG TAB PO ONE (14:00)
[2020-06-05] MEDS ORDERED: LISINOPRIL 10 MG TAB PO ONE (14:00)
[2020-06-05] MEDS ORDERED: APIXABAN 2.5 MG TAB PO ONE (14:00)
[2020-06-05] MEDS ORDERED: hydrALAZINE HCL 25 MG TAB PO ONE (14:00)
[2020-06-05] MEDS ORDERED: CLOPIDOGREL BISULFATE 75 MG TAB PO ONE (14:00)
[2020-06-05] MEDS: MORPHINE SULFATE 4 MG/ML SYR/VIAL IV PRN (15:01)
[2020-06-05 16:11] VITALS: BP 145/76
[2020-06-05] MEDS: AMITRIPTYLINE HCL 25 MG TAB PO SCH (17:36)
[2020-06-05] MEDS ORDERED: HYDR-4296 PO (17:58)
[2020-06-05] MEDS ORDERED: SILD20TA2 PO (17:58)
[2020-06-05] MEDS ORDERED: LISI-646 PO (17:58)
[2020-06-05] MEDS ORDERED: AMIT75TA2 PO (17:58)
[2020-06-05 20:00] VITALS: BP 162/72
[2020-06-05 22:00] VITALS: BP 144/85
[2020-06-05] MEDS ORDERED: FAMOTIDINE 20 MG TAB PO SCH (22:00)
[2020-06-05] MEDS: ATORVASTATIN 20 MG TAB PO SCH (22:14)
[2020-06-05] MEDS: hydrALAZINE HCL 25 MG TAB PO SCH (22:14)
[2020-06-05] MEDS: InsuLIN REG 1unit/0.01ml Soln (100units/ml) SC SCH (22:19)
[2020-06-05] MEDS: INSULIN NPH Isophane (HUMAN) 1unit/0.01ml Susp(100units/ml) SC SCH (22:19)
[2020-06-06 05:00] VITALS: BP 149/81
[2020-06-06 08:15] VITALS: BP 148/89
[2020-06-06] MEDS ORDERED: APIXABAN 2.5 MG TAB PO SCH (10:00)
[2020-06-06] MEDS ORDERED: ZINC SULFATE 220mg CAP or TAB PO SCH (10:00)
[2020-06-06] MEDS: hydrALAZINE HCL 25 MG TAB PO SCH ×2 (10:30→22:00)
[2020-06-06] MEDS: InsuLIN REG 1unit/0.01ml Soln (100units/ml) SC SCH ×2 (10:30→22:00)
[2020-06-06] MEDS: INSULIN NPH Isophane (HUMAN) 1unit/0.01ml Susp(100units/ml) SC SCH ×2 (10:30→22:00)
[2020-06-06] MEDS: LISINOPRIL 10 MG TAB PO SCH (10:30)
[2020-06-06] MEDS: FAMOTIDINE 20 MG TAB PO SCH (10:30)
[2020-06-06] MEDS: CLOPIDOGREL BISULFATE 75 MG TAB PO SCH (10:30)
[2020-06-06 12:15] LABS: Basophils # (auto) 0.1 10 ^3/uL (0-0.2); Eosinophils # (auto) 0 10 ^3/uL (0-0.8); Hemoglobin 11.8 g/dL (12.2-16.2); Lymphocytes # (auto) 0.5 10 ^3/uL (0.4-5.4); Mean Corpuscular Hemoglobin 33.2 pg (28.0-32.0); Monocytes # (auto) 0.7 10 ^3/uL (0-1.3); Neutrophils # (auto) 7.6 10 ^3/uL (1.6-8.6)
[2020-06-06 12:17] LABS: Basophils % (auto) 0.7 % (0.0-2.0); Eosinophils % (auto) 0.2 % (0.0-7.0); Hematocrit 36.2 % (36.0-46.0); Lymphocytes % (auto) 5.5 % (10.0-50.0); Mean Corpuscular Hgb Conc. 32.7 g/dL (32.0-36.0); Mean Corpuscular Volume 101.6 fL (80.0-100.0); Monocytes % (auto) 7.6 % (0.0-12.0); Platelet Count (auto) 173 10^3/uL (140-450); Red Blood Cells 3.56 10^6/uL (4.0-5.20); Red Cell Distribution Width 13.8 % (11.8-14.3); White Blood Cell 8.8 10^3/uL (4.4-10.8)
[2020-06-06 12:35] LABS: Albumin 2.5 g/dL (3.4-5.0); Calcium 8.8 mg/dL (8.5-10.1); Potassium 4.9 mmol/L (3.5-5.1)
[2020-06-06 12:38] LABS: BUN/Creatinine Ratio 9.3; Bilirubin, Total 0.8 mg/dL (0.2-1.0); Total Protein 6.4 g/dL (6.4-8.2)
[2020-06-06] MEDS ORDERED: DEXTROSE (50%) 50ML SYRG IV PRN (12:45)
[2020-06-06 13:00] VITALS: BP 151/92
[2020-06-06] MEDS ORDERED: LIDOCAINE 2%HCL (LOCAL ANESTH.) INJ 20ML MDV ONE (14:03)
[2020-06-06] MEDS ORDERED: IODIXANOL 320MG/ML 100ML BTL IV ONE ×2 (14:03→14:07)
[2020-06-06] MEDS ORDERED: fentaNYL CITRATE 100 MCG/2 ML VL ONE (14:07)
[2020-06-06] MEDS ORDERED: MIDAZOLAM HCL 1MG/1ML-2 ML VIAL ONE (14:07)
[2020-06-06] MEDS ORDERED: ANGIOMAX 250 MG VIAL IV ONE (14:07)
[2020-06-06] MEDS ORDERED: SODIUM CHL 0.9% 0 ML ONE (14:07)
[2020-06-06] MEDS ORDERED: VERAPAMIL 2.5MG/ML INJ 2ML VIAL IV ONE (14:09)
[2020-06-06] MEDS ORDERED: HEPARIN SODIUM (PORCINE) 5000 UNITS/ML 1ML VIAL ONE (14:09)
[2020-06-06] MEDS ORDERED: SODIUM CHL 0.9% 1000 ML BAG XX ONE (15:45)
[2020-06-06 17:00] VITALS: BP 186/98
[2020-06-06] MEDS: ACCU-CHEK COMFORT CURVE STRIP VI SCH ×2 (17:08→22:00)
[2020-06-06] MEDS: AMITRIPTYLINE HCL 25 MG TAB PO SCH (19:42)
[2020-06-06] MEDS ORDERED: EPOETIN ALFA 10,000 UNIT/1 ML VIAL SC ONE (21:00)
[2020-06-06] MEDS: APIXABAN 5 MG TAB PO SCH (21:59)
[2020-06-06] MEDS: ATORVASTATIN 20 MG TAB PO SCH (21:59)
[2020-06-06 22:00] VITALS: BP 143/77
[2020-06-06] MEDS: MORPHINE SULFATE 4 MG/ML SYR/VIAL IV PRN (22:01)
[2020-06-07 05:00] VITALS: BP 144/83
[2020-06-07] MEDS: ACCU-CHEK COMFORT CURVE STRIP VI SCH ×2 (07:01→11:49)
[2020-06-07 08:00] VITALS: BP 147/83
[2020-06-07 08:40] VITALS: BP 147/83
[2020-06-07] MEDS: FAMOTIDINE 20 MG TAB PO SCH (09:52)
[2020-06-07] MEDS: APIXABAN 5 MG TAB PO SCH (09:53)
[2020-06-07] MEDS: CLOPIDOGREL BISULFATE 75 MG TAB PO SCH (09:53)
[2020-06-07] MEDS: hydrALAZINE HCL 25 MG TAB PO SCH (09:54)
[2020-06-07] MEDS: LISINOPRIL 10 MG TAB PO SCH (09:54)
[2020-06-07] MEDS ORDERED: METOPROLOL SUCCINATE XL 50 MG TAB PO SCH (10:00)
[2020-06-07] MEDS: INSULIN NPH Isophane (HUMAN) 1unit/0.01ml Susp(100units/ml) SC SCH (10:01)
[2020-06-07] MEDS: InsuLIN REG 1unit/0.01ml Soln (100units/ml) SC SCH (10:01)
[2020-06-07 11:16] VITALS: BP 147/83
[2020-06-07 12:47] VITALS: BP 144/72
[2020-06-07] MEDS ORDERED: APIX5TAB PO (14:29)
== END 2020-06-07 14:44 | disposition home or self-care (01) | DRG 280 ==
LOC: ER 08:55 → TELE 08:56 → CENTRAL 15:24 → TELE-CENTR 06-07 01:06
PROVIDERS: ADMIT Internal Medicine; ATTEND Internal Medicine
PROC: 5A1D70Z Performance of Urinary Filtration, Intermittent, Less than 6 Hours Per Day (ICD-10-PCS; principal; 2020-06-06)
PROC: 4A023N7 Measurement of Cardiac Sampling and Pressure, Left Heart, Percutaneous Approach (ICD-10-PCS; 2020-06-06)
PROC: B211YZZ Fluoroscopy of Multiple Coronary Arteries using Other Contrast (ICD-10-PCS; 2020-06-06)
PROC: B215YZZ Fluoroscopy of Left Heart using Other Contrast (ICD-10-PCS; 2020-06-06)
DX: I13.2 Hypertensive heart and chronic kidney disease with heart failure and with stage 5 chronic kidney disease, or end stage renal disease (principal); I21.A1 Myocardial infarction type 2; N18.6 End stage renal disease; E43 Unspecified severe protein-calorie malnutrition; I50.22 Chronic systolic (congestive) heart failure; I25.110 Atherosclerotic heart disease of native coronary artery with unstable angina pectoris; I27.20 Pulmonary hypertension, unspecified; I48.91 Unspecified atrial fibrillation; D63.1 Anemia in chronic kidney disease; E11.21 Type 2 diabetes mellitus with diabetic nephropathy; E11.319 Type 2 diabetes mellitus with unspecified diabetic retinopathy without macular edema; E11.40 Type 2 diabetes mellitus with diabetic neuropathy, unspecified; E11.649 Type 2 diabetes mellitus with hypoglycemia without coma; H54.8 Legal blindness, as defined in USA; Z79.01 Long term (current) use of anticoagulants; Z99.2 Dependence on renal dialysis; Z79.4 Long term (current) use of insulin; Z79.02 Long term (current) use of antithrombotics/antiplatelets; Z82.3 Family history of stroke; Z82.49 Family history of ischemic heart disease and other diseases of the circulatory system; Z83.3 Family history of diabetes mellitus; Z91.15 Patient's noncompliance with renal dialysis; Z98.61 Coronary angioplasty status
CPT/HCPCS: 36415; 71045; 80053; 81001; 82962; 83880; 84484; 85025; 87081; 90935; 93005; 93458; 99152; 99291; G0378; J1815; J2250; Q9967

== ENCOUNTER 2020-06-23 10:48 | Inpatient (IN) | payer MEDICARE, MEDICAID ==
[~2020-06-23] VITALS: Ht 152.4 cm; Wt 65.9 kg
[~2020-06-23 10:48] MED LIST changes: -AMIT25TA9 PO; +AMIT75TA2 PO; -APIX2.5T PO; +APIX5TAB PO; +LISI-646 PO; -LISI-648 PO; +SILD20TA2 PO
[2020-06-23] MEDS ORDERED: MORPHINE SULF INJ 2 MG/ML SYRINGE 1ML IV PRN ×3 (12:15→14:00)
[2020-06-23] MEDS ORDERED: NITROGLYCERIN 0.4 MG SL TAB SL PRN ×2 (12:15→14:00)
[2020-06-23 12:30] LABS: Eosinophils # (auto) 0.9 10 ^3/uL (0-0.8); Lymphocytes # (auto) 0.9 10 ^3/uL (0.4-5.4); Neutrophils % (auto) 70.8 % (37.0-80.0); Red Cell Distribution Width 14.7 % (11.8-14.3)
[2020-06-23 12:33] LABS: Basophils # (auto) 0.1 10 ^3/uL (0-0.2); Basophils % (auto) 1.5 % (0.0-2.0); Eosinophils % (auto) 10.7 % (0.0-7.0); Hematocrit 33.3 % (36.0-46.0); Hemoglobin 10.9 g/dL (12.2-16.2); Lymphocytes % (auto) 10.4 % (10.0-50.0); Mean Corpuscular Hemoglobin 33.4 pg (28.0-32.0); Mean Corpuscular Hgb Conc. 32.7 g/dL (32.0-36.0); Mean Corpuscular Volume 102.1 fL (80.0-100.0); Monocytes # (auto) 0.6 10 ^3/uL (0-1.3); Monocytes % (auto) 6.6 % (0.0-12.0); Neutrophils # (auto) 5.9 10 ^3/uL (1.6-8.6); Platelet Count (auto) 244 10^3/uL (140-450); Red Blood Cells 3.26 10^6/uL (4.0-5.20); White Blood Cell 8.4 10^3/uL (4.4-10.8)
[2020-06-23 12:47] LABS: INR 1.13 (0.9-1.15); Partial Thromboplastin Time 27.7 sec (23.0-31.2)
[2020-06-23 13:09] LABS: Albumin 2.7 g/dL (3.4-5.0); Calcium 8.7 mg/dL (8.5-10.1); Magnesium 2.1 mg/dL (1.6-2.6); Potassium 4.8 mmol/L (3.5-5.1)
[2020-06-23] MEDS ORDERED: LISI-646 PO (13:09)
[2020-06-23] MEDS ORDERED: APIX5TAB PO (13:09)
[2020-06-23] MEDS ORDERED: DILT-29 PO (13:10)
[2020-06-23] MEDS ORDERED: DORZ2SOL18 LEFTEYE (13:10)
[2020-06-23] MEDS ORDERED: BENZ100C97 PO (13:12)
[2020-06-23 13:13] LABS: BUN/Creatinine Ratio 11.1
[2020-06-23] MEDS ORDERED: METO10TA3 PO (13:13)
[2020-06-23] MEDS ORDERED: ZOLP10TA6 PO (13:14)
[2020-06-23 13:15] LABS: Bilirubin, Total 0.6 mg/dL (0.2-1.0); Total Protein 6.8 g/dL (6.4-8.2)
[2020-06-23] MEDS ORDERED: APIX2.5T PO (13:17)
[2020-06-23] MEDS ORDERED: DEXTROSE (50%) 50ML SYRG IV PRN (14:00)
[2020-06-23] MEDS ORDERED: ACETAMINOPHEN 325 MG TAB PO PRN (14:00)
[2020-06-23] MEDS ORDERED: ALUM & MAG HYDROX-SIMETH LIQ(MAALOX) 30 ML PO PRN (14:00)
[2020-06-23] MEDS ORDERED: HYDROcodone-ACET 5/325MG TAB PO PRN (14:00)
[2020-06-23] MEDS ORDERED: LORazepam 0.5 MG TAB PO PRN (14:00)
[2020-06-23] MEDS ORDERED: DOCUSATE SOD 100 MG CAP PO PRN (14:00)
[2020-06-23] MEDS ORDERED: ONDANSETRON HCL 4 MG/2 ML VIAL IV PRN (14:00)
[2020-06-23] MEDS ORDERED: hydrALAZINE HCL 25 MG TAB PO ONE (15:15)
--- NOTE | 2020-06-23 15:25 | NUR ---
Telemetry admit from [facility] admitted to Telemetry unit after SBAR received. Patient oriented to Teresa Mcmanus primary RN, unit, room, bed, and unit policies regarding patient care and visiting hours. Patient now on continuous telemetry monitoring, tele box # 30 and telemetry reading on arrival to unit is ST 115. Patient weighed by bedscale and encouraged to call if they need something, electrode applied to call light to ease use of call light since pt is blind, bed alarm on. All questions and concerns addressed, patient verbalized understanding.
[2020-06-23 16:38] VITALS: BP 129/75
[2020-06-23] MEDS ORDERED: B-COMPLEX W/ C & FOLIC ACID(NEPHROVITE TAB) PO ONE (16:45)
[2020-06-23] MEDS ORDERED: FUROSEMIDE 40 MG/4 ML VIAL IV ONE (16:45)
[2020-06-23 17:00] VITALS: BP 129/75
[2020-06-23] MEDS ORDERED: cefTRIAXone 1GM/50ML D5W 50 ML IV ONE (17:00)
[2020-06-23] MEDS ORDERED: LACTULOSE 20Gm/30ML SOLN PO PRN (17:00)
[2020-06-23] MEDS ORDERED: LACTULOSE 20Gm/30ML SOLN PO ONE (17:00)
[2020-06-23] MEDS: ACCU-CHEK COMFORT CURVE STRIP VI SCH ×2 (17:00→22:19)
--- NOTE | 2020-06-23 17:30 | NUR ---
Called Pharmacy Received new orders for medications. Called and spoke to Arnie in pharmacy to acknowledge medication to remove from the pixis. Meds still unavailable.
[2020-06-23] MEDS ORDERED: hydrALAZINE HCL 25 MG TAB PO PRN (18:00)
[2020-06-23] MEDS: SEVELAMER 800 MG TAB PO SCH (18:15)
[2020-06-23] MEDS: FERROUS SULFATE 325 MG TAB PO SCH (18:15)
[2020-06-23] MEDS: InsuLIN REG 1unit/0.01ml Soln (100units/ml) SC SCH ×2 (18:16→22:27)
--- NOTE | 2020-06-23 19:39 | NUR ---
Opening Shift Note Assumed care of patient, awake and alert. No S/S of distress/SOB or pain. Patient oxygen saturation 96% on 3 liters O2. Instructed on POC and to call for assist PRN, will continue to monitor for changes Q1hr and PRN.
[2020-06-23 20:00] VITALS: BP 163/71
[2020-06-23] MEDS: SILDENAFIL CITRATE 20 MG TAB PO SCH (20:17)
[2020-06-23 22:00] VITALS: BP 141/91
[2020-06-23] MEDS: ATORVASTATIN 20 MG TAB PO SCH (22:13)
[2020-06-23] MEDS: APIXABAN 2.5 MG TAB PO SCH (22:13)
[2020-06-23] MEDS: LISINOPRIL 20 MG TAB PO SCH (22:14)
[2020-06-23] MEDS: DORZOLAMIDE HCL 2% OPTH(EYE) SOL 10ML LEFTEYE SCH (22:15)
[2020-06-23] MEDS: AMITRIPTYLINE HCL 25 MG TAB PO SCH (22:15)
--- NOTE | 2020-06-24 01:59 | NUR ---
Hearing Aid Called patient daughter jw [phone] regarding failed left hearing aid battery. Will bring in the morning.
[2020-06-24] MEDS: FUROSEMIDE 40 MG/4 ML VIAL IV SCH ×2 (04:51→17:37)
[2020-06-24] MEDS: DORZOLAMIDE HCL 2% OPTH(EYE) SOL 10ML LEFTEYE SCH ×3 (04:52→21:05)
[2020-06-24 05:18] VITALS: BP 144/89
[2020-06-24] MEDS: InsuLIN REG 1unit/0.01ml Soln (100units/ml) SC SCH ×4 (05:29→21:09)
[2020-06-24] MEDS: ACCU-CHEK COMFORT CURVE STRIP VI SCH ×4 (05:30→21:05)
[2020-06-24] MEDS ORDERED: SODIUM CHL 0.9% 1000 ML BAG XX ONE (07:00)
[2020-06-24] MEDS: SILDENAFIL CITRATE 20 MG TAB PO SCH ×3 (08:00→19:37)
[2020-06-24] MEDS: FERROUS SULFATE 325 MG TAB PO SCH ×2 (08:00→17:38)
[2020-06-24] MEDS: SEVELAMER 800 MG TAB PO SCH ×3 (08:00→17:38)
--- NOTE | 2020-06-24 08:00 | NUR ---
Opening Shift Note Assumed care of patient, awake, alert and oriented X4. No S/S of distress/SOB or pain. Tele# 30, sinus tachycardia @ 112 bpm. IV to right upper arm, 20 gauge, patent and saline locked. Left upper arm AV fistula with good bruit and thrill. Right lower abdominal incision, s/p paracentesis, dressing clean, dry and intact. Patient is legally blind and hard of hearing. Instructed on POC and to call for assist PRN, verbalized understanding. Bed locked, in lowest position, call light within reach, will continue to monitor for changes Q1hr and PRN.
[2020-06-24 09:00] VITALS: BP 153/93
[2020-06-24] MEDS: SPIRONOLACTONE 25 MG TAB PO SCH (09:49)
[2020-06-24] MEDS: cefTRIAXone 1GM/50ML D5W 50 ML IV SCH (09:49)
[2020-06-24] MEDS: dilTIAZem HCL 180MG ER CAP PO SCH (09:50)
[2020-06-24] MEDS: APIXABAN 2.5 MG TAB PO SCH ×2 (09:50→21:04)
[2020-06-24] MEDS: CHOLECALCIFEROL (VITD3) 2,000 UNIT CAP PO SCH (09:50)
[2020-06-24] MEDS: B-COMPLEX W/ C & FOLIC ACID(NEPHROVITE TAB) PO SCH (09:50)
[2020-06-24] MEDS: LISINOPRIL 20 MG TAB PO SCH ×2 (09:51→21:03)
--- NOTE | 2020-06-24 11:45 | NUR ---
HEMODIALYSIS Hemodialysis nurse at bedside starting hemodialysis.
--- NOTE | 2020-06-24 13:02 | NUR ---
ROUNDS Dr Wesley Pemberton at bedside for patient rounds, new orders received and followed through. Patient updated on plan of cared, vernalized understanding.
--- NOTE | 2020-06-24 13:03 | NUR ---
CARDIOLOGY Call placed to Dr Rosa for Cardiology consult, awaiting return call.
[2020-06-24 13:17] VITALS: BP 148/76
[2020-06-24 13:43] LABS: Basophils # (auto) 0.1 10 ^3/uL (0-0.2); Eosinophils # (auto) 0.8 10 ^3/uL (0-0.8); Eosinophils % (auto) 13.2 % (0.0-7.0); Hematocrit 30.8 % (36.0-46.0); Hemoglobin 10.2 g/dL (12.2-16.2); Lymphocytes # (auto) 0.6 10 ^3/uL (0.4-5.4); Lymphocytes % (auto) 9.7 % (10.0-50.0); Mean Corpuscular Hemoglobin 33.3 pg (28.0-32.0); Mean Corpuscular Hgb Conc. 33.2 g/dL (32.0-36.0); Mean Corpuscular Volume 100.4 fL (80.0-100.0); Monocytes # (auto) 0.3 10 ^3/uL (0-1.3); Monocytes % (auto) 4.7 % (0.0-12.0); Neutrophils # (auto) 4.4 10 ^3/uL (1.6-8.6); Neutrophils % (auto) 70.4 % (37.0-80.0); Nucleated Red Blood Cells % 0.2 %; Platelet Count (auto) 197 10^3/uL (140-450); Red Blood Cells 3.07 10^6/uL (4.0-5.20); Red Cell Distribution Width 14.4 % (11.8-14.3); White Blood Cell 6.3 10^3/uL (4.4-10.8)
[2020-06-24 14:05] LABS: BUN/Creatinine Ratio 10.4; Calcium 7.4 mg/dL (8.5-10.1); Potassium 3.7 mmol/L (3.5-5.1)
[2020-06-24 14:06] LABS: % Iron Saturation 37.7 % (15-50)
[2020-06-24 16:50] VITALS: BP 135/67
--- NOTE | 2020-06-24 19:02 | NUR ---
Care endorsed to LAVERNE Jones, night nurse.
--- NOTE | 2020-06-24 19:30 | NUR ---
Opening note Care endorsed from Daija GALLOWAY. Patient resting in bed, vitals: 137/86 105HR 18RR 94% on room air. Bed locked in lowest position, side rails up X2, call light within reach. No signs of distress or SOB. Updated patient on POC, verbalized understanding. Will continue to monitor.
[2020-06-24 20:00] VITALS: BP 137/86
[2020-06-24] MEDS ORDERED: EPOETIN ALFA 4,000 UNIT/ML VL SC ONE (21:00)
[2020-06-24] MEDS: AMITRIPTYLINE HCL 25 MG TAB PO SCH (21:04)
[2020-06-24] MEDS: ATORVASTATIN 20 MG TAB PO SCH (21:04)
--- NOTE | 2020-06-24 21:17 | NUR ---
Rounds Patient asleep in bed, no signs of distress or SOB.
[2020-06-24 21:55] VITALS: BP 138/70
--- NOTE | 2020-06-24 22:02 | NUR ---
Hearing aid batteries brought up from the main lobby.
[2020-06-25 05:00] VITALS: BP 141/90
[2020-06-25] MEDS: FUROSEMIDE 40 MG/4 ML VIAL IV SCH (05:35)
[2020-06-25] MEDS: DORZOLAMIDE HCL 2% OPTH(EYE) SOL 10ML LEFTEYE SCH ×2 (05:36→15:02)
[2020-06-25] MEDS: ACCU-CHEK COMFORT CURVE STRIP VI SCH ×2 (05:41→11:30)
[2020-06-25] MEDS: InsuLIN REG 1unit/0.01ml Soln (100units/ml) SC SCH (05:43)
--- NOTE | 2020-06-25 07:00 | NUR ---
Closing Note Care endorsed to Daija GALLOWAY. Patient resting in bed locked lowest position, side rails up X2, call light within reach. No signs of distress or SOB.
--- NOTE | 2020-06-25 08:00 | NUR ---
Opening Shift Note Assumed care of patient, awake, alert and oriented X4. No S/S of distress/SOB or pain. Tele# 30, sinus tachycardia @ 114 bpm. IV to right upper arm, 20 gauge, patent and saline locked. Left upper arm AV fistula with good bruit and thrill. Right lower abdominal incision, s/p paracentesis, dressing clean, dry and intact. Patient is legally blind and hard of hearing. Instructed on POC and to call for assist PRN, verbalized understanding. Bed locked, in lowest position, call light within reach, will continue to monitor for changes Q1hr and PRN.
[2020-06-25] MEDS: SILDENAFIL CITRATE 20 MG TAB PO SCH ×2 (08:17→15:02)
[2020-06-25] MEDS: SEVELAMER 800 MG TAB PO SCH ×2 (08:17→13:19)
[2020-06-25] MEDS: FERROUS SULFATE 325 MG TAB PO SCH (08:17)
[2020-06-25 09:00] VITALS: BP 132/72
[2020-06-25] MEDS: SPIRONOLACTONE 25 MG TAB PO SCH (09:54)
[2020-06-25] MEDS: cefTRIAXone 1GM/50ML D5W 50 ML IV SCH (09:54)
[2020-06-25] MEDS: APIXABAN 2.5 MG TAB PO SCH (09:56)
[2020-06-25] MEDS: B-COMPLEX W/ C & FOLIC ACID(NEPHROVITE TAB) PO SCH (09:56)
[2020-06-25] MEDS: dilTIAZem HCL 180MG ER CAP PO SCH (09:56)
[2020-06-25] MEDS: CHOLECALCIFEROL (VITD3) 2,000 UNIT CAP PO SCH (09:56)
[2020-06-25] MEDS: LISINOPRIL 20 MG TAB PO SCH (09:57)
--- NOTE | 2020-06-25 10:15 | NUR ---
ROUNDS Dr Wesley Pemberton at bedside for patient rounds, new orders received and followed through. Patient updated on plan of cared, vernalized understanding.
[2020-06-25 13:00] VITALS: BP 130/83
--- NOTE | 2020-06-25 14:31 | NUR ---
Assessment Patient is a 54-year-old female who is alert and legally blind. Patient primary language is Egyptian. Per patient she lives with family and functioned with assistance. Per patient her family helps her with her ADLs. Per patient she will return home to her prior living arrangements post discharge and family will transport her home. Per patient she has a wheelchair, walker and bedside commode for home use. Patient informed me she is on service with [employer] and would like to resume service with [facility]. Patients PCP is Dr Rosa. Informed patient there is a social service consult to resume service with [employer]. Informed patient clinical information will be faxed to [facility]. Informed patient she has the right to participate in all discharge planning. Patient verbalized understanding and agreed to discharge plan. Faxed clinical information to [facility]. Per Yudith with agency they will resume service for patient within 24-48hrs upon d/c day. Addendum: 06/25/20 at 1432 by GHAZALA MAYO Amended: Links added.
[2020-06-25 15:11] VITALS: BP 130/83
--- NOTE | 2020-06-25 16:49 | NUR ---
Discharge instructions given as ordered. Encourage to follow up with PMD as instructed. All questions and concerns addressed. Patient verbalized understanding. Medication reconciliation form completed and copy given to patient. IV removed with catheter intact, pressure dressing applied. Telemetry unit returned to ICU. Patient awaiting son Reji for transportation.
--- NOTE | 2020-06-25 17:47 | NUR ---
Patient taken to vehicle via wheelchair with all personal belongings, accompanied by staff and family member. No distress noted at time of departure.
[2020-06-26 10:08] LABS: Hepatitis A Ab IgM Negative; Hepatitis B Core IgM Negative; Hepatitis B Surface Antigen Negative (Negative); Hepatitis C Antibody Negative (Negative)
== END 2020-06-25 17:45 | disposition home health service (06) | DRG 280 ==
LOC: ER 10:48 → TELE 10:49 → TELE-CENTR 15:30
PROVIDERS: ADMIT Hospitalist; ATTEND Family Medicine
PROC: 0W9G3ZZ Drainage of Peritoneal Cavity, Percutaneous Approach (ICD-10-PCS; principal; 2020-06-23)
PROC: 5A1D70Z Performance of Urinary Filtration, Intermittent, Less than 6 Hours Per Day (ICD-10-PCS; 2020-06-24)
DX: I13.2 Hypertensive heart and chronic kidney disease with heart failure and with stage 5 chronic kidney disease, or end stage renal disease (principal); I50.23 Acute on chronic systolic (congestive) heart failure; I21.A1 Myocardial infarction type 2; N18.6 End stage renal disease; E43 Unspecified severe protein-calorie malnutrition; R18.8 Other ascites; I48.92 Unspecified atrial flutter; I42.9 Cardiomyopathy, unspecified; E87.79 Other fluid overload; E11.22 Type 2 diabetes mellitus with diabetic chronic kidney disease; E11.319 Type 2 diabetes mellitus with unspecified diabetic retinopathy without macular edema; E78.5 Hyperlipidemia, unspecified; F32.9 Major depressive disorder, single episode, unspecified; I27.21 Secondary pulmonary arterial hypertension; D63.1 Anemia in chronic kidney disease; E11.40 Type 2 diabetes mellitus with diabetic neuropathy, unspecified; I25.10 Atherosclerotic heart disease of native coronary artery without angina pectoris; Z79.02 Long term (current) use of antithrombotics/antiplatelets; Z79.01 Long term (current) use of anticoagulants; Z99.2 Dependence on renal dialysis; Z79.4 Long term (current) use of insulin; Z79.899 Other long term (current) drug therapy; Z82.49 Family history of ischemic heart disease and other diseases of the circulatory system; Z86.73 Personal history of transient ischemic attack (TIA), and cerebral infarction without residual deficits; Z95.5 Presence of coronary angioplasty implant and graft; Z91.81 History of falling; Z83.3 Family history of diabetes mellitus; Z82.3 Family history of stroke; Z68.28 Body mass index [BMI] 28.0-28.9, adult
CPT/HCPCS: 10022; 36415; 76700; 76942; 80048; 80053; 80061; 80074; 82728; 82962; 83036; 83540; 83550; 83690; 83735; 84484; 85025; 85610; 85730; 87040; 90935; 93005; G0378; J0696; J1642; J1815

== ENCOUNTER 2020-07-14 09:08 | Inpatient (IN) | payer MEDICARE, MEDICAID ==
[~2020-07-14] VITALS: Ht 162.6 cm; Wt 63.2 kg
[~2020-07-14 09:08] MED LIST changes: +APIX2.5T PO; -APIX5TAB PO; +BENZ100C97 PO; -CARV25TA55 PO; -CLOP75TA28 PO; +DILT-29 PO; +DORZ2SOL18 LEFTEYE; -INSUINJ2 SC; -INSUINJ37 SUBCUT; -Isosorbide Mononitrate PO; +METO10TA3 PO; +ZOLP10TA6 PO
[2020-07-14 10:03] LABS: Lymphocytes # (auto) 0.6 10 ^3/uL (0.4-5.4); White Blood Cell 8.6 10^3/uL (4.4-10.8)
[2020-07-14 10:06] LABS: Basophils # (auto) 0.1 10 ^3/uL (0-0.2); Basophils % (auto) 1.3 % (0.0-2.0); Eosinophils # (auto) 1.3 10 ^3/uL (0-0.8); Eosinophils % (auto) 14.7 % (0.0-7.0); Hematocrit 35.6 % (36.0-46.0); Hemoglobin 11.6 g/dL (12.2-16.2); Lymphocytes % (auto) 6.8 % (10.0-50.0); Mean Corpuscular Hemoglobin 33.9 pg (28.0-32.0); Mean Corpuscular Hgb Conc. 32.7 g/dL (32.0-36.0); Mean Corpuscular Volume 103.6 fL (80.0-100.0); Monocytes # (auto) 0.6 10 ^3/uL (0-1.3); Monocytes % (auto) 6.4 % (0.0-12.0); Neutrophils # (auto) 6.1 10 ^3/uL (1.6-8.6); Neutrophils % (auto) 70.8 % (37.0-80.0); Platelet Count (auto) 206 10^3/uL (140-450); Red Blood Cells 3.44 10^6/uL (4.0-5.20)
[2020-07-14 10:19] LABS: Calcium 8.7 mg/dL (8.5-10.1); Potassium 5.1 mmol/L (3.5-5.1)
[2020-07-14 10:25] LABS: Albumin 2.7 g/dL (3.4-5.0); BUN/Creatinine Ratio 12.6; Bilirubin, Total 0.9 mg/dL (0.2-1.0); Total Protein 6.7 g/dL (6.4-8.2)
[2020-07-14 10:32] LABS: INR 1.09 (0.9-1.15); Partial Thromboplastin Time 25.9 sec (23.0-31.2)
[2020-07-14] MEDS ORDERED: FUROSEMIDE 40 MG/4 ML VIAL IV ONE (13:00)
[2020-07-14] MEDS ORDERED: hydrALAZINE HCL 25 MG TAB PO PRN (16:00)
[2020-07-14] MEDS ORDERED: ACETAMINOPHEN 500 MG TAB PO PRN (16:00)
[2020-07-14] MEDS ORDERED: MORPHINE SULF INJ 2 MG/ML SYRINGE 1ML IV PRN ×2 (16:00)
[2020-07-14] MEDS ORDERED: HYDROcodone-ACET 5/325MG TAB PO PRN (16:00)
[2020-07-14] MEDS ORDERED: LABETALOL HCL 5 MG/ML 4ML SYRINGE IV PRN ×2 (16:00→16:45)
[2020-07-14] MEDS ORDERED: ZOLPIDEM TARTRATE 5 MG TAB PO PRN (16:30)
[2020-07-14] MEDS ORDERED: LISINOPRIL 20 MG TAB PO SCH ×2 (16:45→22:00)
[2020-07-14] MEDS: dilTIAZem 120MG ER CAP PO SCH (18:12)
[2020-07-14] MEDS: FUROSEMIDE 40 MG TAB PO SCH (18:13)
[2020-07-14] MEDS: SEVELAMER 800 MG TAB PO SCH (18:13)
[2020-07-14] MEDS: AMITRIPTYLINE HCL 25 MG TAB PO SCH (18:13)
[2020-07-14 22:00] VITALS: BP 180/81
[2020-07-14] MEDS: ATORVASTATIN 20 MG TAB PO SCH (22:00)
[2020-07-14] MEDS: SILDENAFIL CITRATE 20 MG TAB PO SCH (22:00)
[2020-07-14] MEDS: DORZOLAM-TIMOLOL(2/0.5%) OPTH(EYE) SOLN 10ML LEFTEYE SCH (22:00)
--- NOTE | 2020-07-14 22:00 | NUR ---
Telemetry admit from [facility] admitted to Telemetry unit after SBAR received. Patient oriented to Virgil Andres, primary RN, unit, room, bed, and unit policies regarding patient care and visiting hours. Patient now on continuous telemetry monitoring, tele box #38 and telemetry reading on arrival to unit is ST 110. Patient weighed by bedscale and encouraged to call if they need something. All questions and concerns addressed, patient verbalized understanding.
[2020-07-14 22:30] VITALS: BP 121/76
--- NOTE | 2020-07-14 22:39 | NUR ---
PATIENT UNABLE TO CONFIRM HOME MEDICATIONS PATIENT IS BLIND AND IS UNFAMILIAR WITH MEDICATIONS TAKEN. UNABLE TO CONFIRM LIST AVAILABLE ON MED REC. WILL ENDORSE TO SERVICE SUPERVISOR RN.
[2020-07-14] MEDS ORDERED: PNEUMOCOCCAL VACC POLYS 25 MCG/0.5 ML VIAL IM ONE (22:45)
[2020-07-15 06:00] VITALS: BP 146/81
[2020-07-15] MEDS: FUROSEMIDE 40 MG TAB PO SCH ×2 (06:00→17:27)
[2020-07-15] MEDS: SILDENAFIL CITRATE 20 MG TAB PO SCH ×3 (06:00→22:00)
[2020-07-15] MEDS ORDERED: SODIUM CHL 0.9% 1000 ML BAG XX ONE (07:00)
--- NOTE | 2020-07-15 07:36 | NUR ---
Opening Shift Note Assumed care of patient, patient laying in bed quietly with eyes closed. patient is on RA with even and unlabored No S/S of distress/SOB or pain. Bed is in lowest locked position, side rails up x3, bed alarm set, and call light is within reach. will continue to monitor for changes Q1hr and PRN.
[2020-07-15] MEDS: SEVELAMER 800 MG TAB PO SCH ×3 (08:06→17:26)
[2020-07-15 09:00] VITALS: BP 136/84
[2020-07-15] MEDS: dilTIAZem 120MG ER CAP PO SCH (10:00)
[2020-07-15] MEDS: DORZOLAM-TIMOLOL(2/0.5%) OPTH(EYE) SOLN 10ML LEFTEYE SCH ×2 (10:00→22:00)
[2020-07-15] MEDS ORDERED: dilTIAZem 120MG ER CAP PO SCH (10:00)
[2020-07-15] MEDS: PATIENTS OWN MEDICATION (B-Complex W/ C & Folic Acid (Nephro-Vite) 1 TAB) PO SCH (10:06)
[2020-07-15] MEDS: FERROUS SULFATE 325 MG TAB PO SCH (10:07)
[2020-07-15] MEDS: FAMOTIDINE 20 MG TAB PO SCH (10:07)
[2020-07-15 12:22] VITALS: BP 143/90
--- NOTE | 2020-07-15 12:28 | NUR ---
Pt is an alert but confused female that is not able to participate in SS assessment. Contacted pt's son, Reji, who resides with her. Reji states pt also [facility] worker that comes in for 2 hours a day. Pt has a FWW,W/C, and a shower chair and receives home health through [facility]. Pt also go to [facility] on Tue, , Tue, and Tuesday and is transported by [facility] transport. Per son pt has been able to do her own personal care in the shower but states ehe needs more help at home. Provided information for son to contact Department of Aging and Adult services [facility] social services analyst and request an increase in her provider hours due to the recent hospitalization. Son verbalized understanding and stated he would be providing transportation for pt home upon discharge. Addendum: 07/15/20 at 1236 by ASHU ARIZMENDI SS Amended: Links added.
[2020-07-15] MEDS ORDERED: ERGOCALCIFEROL 50,000 UNIT(1.25MG) CAP PO SCH (13:00)
--- NOTE | 2020-07-15 13:45 | NUR ---
DIALYSIS NURSE AT BEDSIDE SETTING UP FOR DIALYSIS. DIALYSIS NURSE PROVIDED WITH NS, GAUZE AND HEPARIN FOR DIALYSIS. PATIENT ALERT AND AWAKE LAYING IN BED. NO S/S OF DISTRESS/SOB OR PAIN. WILL CONTINUE TO MONITOR Q1H AND PRN.
[2020-07-15] MEDS ORDERED: DEXTROSE (50%) 50ML SYRG IV PRN (14:30)
--- NOTE | 2020-07-15 16:20 | NUR ---
SPOKE WITH US TECH SPOKE WITH IRRADIATED FUEL HANDLER. PER TECH, SINCE PATIENT IS NOT YET DONE WITH DIALYSIS, PARACENTESIS WILL BE POSTPONED UNTIL TOMORROW. PATIENT UPDATED ON POC. WILL CONTINUE TO MONITOR Q1H AND PRN.
[2020-07-15 16:30] VITALS: BP 148/93
--- NOTE | 2020-07-15 16:45 | NUR ---
DIALYSIS FINISHED DIALYSIS NURSE GAVE REPORT. 3 L OFF. PATIENT REMAINS STABLE. VSS WITH BP 153/81 AND HR 119. WILL CONTINUE TO MONITOR Q1H AND PRN.
[2020-07-15] MEDS: AMITRIPTYLINE HCL 25 MG TAB PO SCH (17:28)
[2020-07-15] MEDS: ACCU-CHEK COMFORT CURVE STRIP VI SCH ×2 (17:46→22:00)
[2020-07-15] MEDS: InsuLIN REG 1unit/0.01ml Soln (100units/ml) SC SCH ×2 (17:46→22:22)
--- NOTE | 2020-07-15 18:53 | NUR ---
END OF SHIFT NOTE Patient awake and alert laying on bed. Patient is on RA with even and unlabored respirations. No S/S of distress/SOB or pain at present time. Care endorsed to NOC RN.
--- NOTE | 2020-07-15 19:40 | NUR ---
Opening Shift Note Assumed care of patient, awake and alert. No S/S of distress/SOB or pain. Bed is locked in lowest position with call light within reach. Bed alarm is on. Instructed on POC and to call for assist PRN, will continue to monitor for changes Q1hr and PRN.
[2020-07-15] MEDS: ATORVASTATIN 20 MG TAB PO SCH (22:00)
[2020-07-16] VITALS (16 sets, daily range): BP systolic 129–166; BP diastolic 77–104
[2020-07-16] MEDS: SILDENAFIL CITRATE 20 MG TAB PO SCH ×3 (06:00→21:39)
[2020-07-16] MEDS: FUROSEMIDE 40 MG TAB PO SCH ×2 (06:00→17:46)
[2020-07-16] MEDS: ACCU-CHEK COMFORT CURVE STRIP VI SCH ×4 (07:00→21:39)
[2020-07-16] MEDS: InsuLIN REG 1unit/0.01ml Soln (100units/ml) SC SCH ×4 (07:00→21:38)
--- NOTE | 2020-07-16 07:30 | NUR ---
Opening Shift Note Assumed care of patient, awake and alert. Respirations are even and unlabored. No S/S of distress/SOB or pain. Noted a firm distended abdomen. Bowel sounds present upon auscultation. Bed is low, locked with 2x side rails up. Call light is within reach. Instructed on POC and to call for assist PRN, will continue to monitor for changes Q1hr and PRN.
[2020-07-16] MEDS: SEVELAMER 800 MG TAB PO SCH ×3 (08:00→17:46)
[2020-07-16] MEDS: dilTIAZem 120MG ER CAP PO SCH (10:00)
[2020-07-16] MEDS: FERROUS SULFATE 325 MG TAB PO SCH (10:00)
[2020-07-16] MEDS: DORZOLAM-TIMOLOL(2/0.5%) OPTH(EYE) SOLN 10ML LEFTEYE SCH ×2 (10:00→21:40)
[2020-07-16] MEDS: FAMOTIDINE 20 MG TAB PO SCH (10:00)
[2020-07-16] MEDS: PATIENTS OWN MEDICATION (B-Complex W/ C & Folic Acid (Nephro-Vite) 1 TAB) PO SCH (10:00)
--- NOTE | 2020-07-16 16:01 | NUR ---
Patient off unit For paracentesis. No distress noted upon departure.
--- NOTE | 2020-07-16 16:15 | NUR ---
PARACENTESIS PATIENT BROUGHT TO [facility] PER BED. PARACENTESIS COMPLETED PER DR GARRIDO. SEE VS FLOWSHEET FOR VS. 6200 ML CLOUDY DK ANDREINA LIQUID. PATIENT MELISSA PROCEDURE WELL. LARGE BANDAID APPLIED TO RLQ ABD WITH MINIMAL BLEEDING NOTED AT SITE. PROCEDURE COMPLETED AT 1705.
--- NOTE | 2020-07-16 17:20 | NUR ---
Pleural fluid Made radiology staff aware of ordered culture and sensitivity as well as WBC of pleural fluid. Per radiology, they will be able to collect and send samples for analysis.
[2020-07-16] MEDS: AMITRIPTYLINE HCL 25 MG TAB PO SCH (17:45)
--- NOTE | 2020-07-16 20:00 | NUR ---
Opening Shift Note Assumed care of patient. Awake, alert and oriented to self, place and situation. Did not know who the president was. No S/S of distress/SOB or pain. Instructed on POC and to call for assist PRN. Bed locked, in lowest position, call light within reach, side rails up x2, fall precautions in place. Will continue to monitor for changes Q1hr and PRN.
--- NOTE | 2020-07-16 20:15 | NUR ---
Pt reporting that food was dropped off for her in the front lobby This RN called to find out if food was dropped off to both the front lobby and the ER. No food was found to be dropped off. This RN spoke with the pts son who insisted that he dropped food off in the front lobby. This RN then walked down to check again and no food was found to be dropped off. Informed pt that no food was found.
[2020-07-16] MEDS: ATORVASTATIN 20 MG TAB PO SCH (21:38)
[2020-07-16] MEDS: METOPROLOL TARTRATE 25 MG TAB PO SCH (21:39)
[2020-07-17 05:00] VITALS: BP 115/81
--- NOTE | 2020-07-17 05:07 | NUR ---
Spoke with Dialysis nurse for pt Said she will arrive between 0900 and 1000 for pts treatment. Will endorse information to day shift RN Addendum: 07/17/20 at 0554 by LIU TRINIDAD RN RN Dialysis nurse changed time to start this pt first at 0600
--- NOTE | 2020-07-17 05:52 | NUR ---
Dialysis nurse at bedside for pts treatment Pt is awake and alert with no S/S of distress, pain or SOB at this time. Will continue to monitor
[2020-07-17] MEDS: FUROSEMIDE 40 MG TAB PO SCH (06:00)
[2020-07-17] MEDS: SILDENAFIL CITRATE 20 MG TAB PO SCH ×2 (06:18→12:06)
[2020-07-17] MEDS: ACCU-CHEK COMFORT CURVE STRIP VI SCH ×2 (06:19→11:43)
[2020-07-17] MEDS: InsuLIN REG 1unit/0.01ml Soln (100units/ml) SC SCH ×2 (06:19→11:44)
--- NOTE | 2020-07-17 06:20 | NUR ---
Called pharmacy to verify if ok to give Revatio during HD As per pharmacy technologist, ok to give Revatio during HD as this med is given for pulmonary HTN and will not effect BP or be dialyzed out.
[2020-07-17 06:23] LABS: Potassium 5.5 mmol/L (3.5-5.1)
[2020-07-17 06:32] LABS: BUN/Creatinine Ratio 11.6; Calcium 8.1 mg/dL (8.5-10.1)
[2020-07-17] MEDS ORDERED: SODIUM CHL 0.9% 1000 ML BAG XX ONE (07:00)
[2020-07-17] MEDS: SEVELAMER 800 MG TAB PO SCH ×2 (07:21→12:06)
--- NOTE | 2020-07-17 07:30 | NUR ---
Opening Shift Note Assumed care of patient, awake and alert. No S/S of distress/SOB or pain. Hemodialysis nurse at bedside and patient is tolerating dialysis treatment well. Bed is low, locked with 2x side rails up. Call light is within reach. Instructed on POC and to call for assist PRN, will continue to monitor for changes Q1hr and PRN.
[2020-07-17 09:00] VITALS: BP 148/81
[2020-07-17] MEDS ORDERED: ALBUMIN 25% 100 ML IV ONE (09:15)
--- NOTE | 2020-07-17 09:35 | NUR ---
Hemodialysis complete Per stone finisher report; 3L out.
[2020-07-17] MEDS: DORZOLAM-TIMOLOL(2/0.5%) OPTH(EYE) SOLN 10ML LEFTEYE SCH (10:00)
[2020-07-17] MEDS: PATIENTS OWN MEDICATION (B-Complex W/ C & Folic Acid (Nephro-Vite) 1 TAB) PO SCH (10:20)
[2020-07-17] MEDS: dilTIAZem 120MG ER CAP PO SCH (10:20)
[2020-07-17] MEDS: METOPROLOL TARTRATE 25 MG TAB PO SCH (10:20)
[2020-07-17] MEDS: FERROUS SULFATE 325 MG TAB PO SCH (10:20)
[2020-07-17] MEDS: FAMOTIDINE 20 MG TAB PO SCH (10:20)
[2020-07-17] MEDS ORDERED: LABETALOL HCL 5 MG/ML 4ML SYRINGE IV ONE ×2 (11:45→12:00)
[2020-07-17] MEDS ORDERED: METO-5 PO (11:49)
--- NOTE | 2020-07-17 12:21 | NUR ---
Nutrition Assessment Notes Please refer to link for full assessment notes. Est Energy needs: 2628-7444 kcals (30-35 kcal/kgBW) d/t pt with ESRD on HD Est Protein needs: 70-76 gms/day (1.1-1.2 gm/kgBW) d/t pt with ESRD on HD Will continue to monitor and reassess prn. Addendum: 07/17/20 at [address] Amended: Links added.
[2020-07-17 13:00] VITALS: BP 129/66
[2020-07-17 13:30] VITALS: BP 129/66
--- NOTE | 2020-07-17 14:53 | NUR ---
Discharge instructions given as ordered. Encourage to follow up with PMD as instructed. Patient scheduled for follow up appointment with PCP Dr. Morales. Encouraged patient to follow up with cardiology and nephrology. Discussed discharge instructions with Reji (son). Advised son that Dr. Flower has discontinued Lisinopril due to elevated potassium, son verbalized understanding. Also made Reji aware that new medication of Metoprolol has been sent to [facility] in [place]. All questions and concerns addressed. Midline removed with catheter intact, pressure dressing applied. Telemetry unit returned to ICU. Patient taken to vehicle via wheelchair with all personal belongings, accompanied by staff. No distress noted at time of departure.
[2020-07-17] MEDS ORDERED: ERGO1CAP23 PO (17:19)
== END 2020-07-17 14:53 | disposition home health service (06) | DRG 291 ==
LOC: ER 09:08 → TELE 09:09 → TELE-CENTR 20:08
PROVIDERS: ADMIT Nurse Practitioner Acute Care; ATTEND Internal Medicine
PROC: 5A1D70Z Performance of Urinary Filtration, Intermittent, Less than 6 Hours Per Day (ICD-10-PCS; principal; 2020-07-15)
PROC: 0W9G3ZZ Drainage of Peritoneal Cavity, Percutaneous Approach (ICD-10-PCS; 2020-07-16)
PROC: 5A1D70Z Performance of Urinary Filtration, Intermittent, Less than 6 Hours Per Day (ICD-10-PCS; 2020-07-17)
DX: I13.2 Hypertensive heart and chronic kidney disease with heart failure and with stage 5 chronic kidney disease, or end stage renal disease (principal); I50.43 Acute on chronic combined systolic (congestive) and diastolic (congestive) heart failure; N18.6 End stage renal disease; E43 Unspecified severe protein-calorie malnutrition; R18.8 Other ascites; I42.9 Cardiomyopathy, unspecified; E55.9 Vitamin D deficiency, unspecified; Z99.2 Dependence on renal dialysis; I27.20 Pulmonary hypertension, unspecified; D63.8 Anemia in other chronic diseases classified elsewhere; K74.60 Unspecified cirrhosis of liver; E11.65 Type 2 diabetes mellitus with hyperglycemia; E11.319 Type 2 diabetes mellitus with unspecified diabetic retinopathy without macular edema; E11.40 Type 2 diabetes mellitus with diabetic neuropathy, unspecified; E87.5 Hyperkalemia; I25.10 Atherosclerotic heart disease of native coronary artery without angina pectoris; Z79.01 Long term (current) use of anticoagulants; Z79.4 Long term (current) use of insulin; Z79.899 Other long term (current) drug therapy; Z82.3 Family history of stroke; Z82.49 Family history of ischemic heart disease and other diseases of the circulatory system; Z83.3 Family history of diabetes mellitus; Z86.73 Personal history of transient ischemic attack (TIA), and cerebral infarction without residual deficits; E11.22 Type 2 diabetes mellitus with diabetic chronic kidney disease; F32.9 Major depressive disorder, single episode, unspecified; M10.9 Gout, unspecified
CPT/HCPCS: 10022; 36415; 71045; 76700; 76942; 80048; 80053; 82306; 82962; 83036; 83880; 83970; 84100; 84132; 85025; 85610; 85730; 87205; 89051; 90935; 93005; 99291; G0378; J1642; J1815; J3490; P9047

== ENCOUNTER 2020-08-01 09:04 | Inpatient (IN) | payer MEDICARE, MEDICAID ==
[~2020-08-01] VITALS: Ht 162.6 cm; Wt 67.9 kg
[~2020-08-01 09:04] MED LIST changes: +ERGO1CAP23 PO; -LISI-646 PO; +METO-5 PO
[2020-08-01 09:58] LABS: Basophils # (auto) 0.1 10 ^3/uL (0-0.2); Basophils % (auto) 1.1 % (0.0-2.0); Hemoglobin 12.8 g/dL (12.2-16.2); Lymphocytes # (auto) 0.7 10 ^3/uL (0.4-5.4)
[2020-08-01 09:59] LABS: Eosinophils # (auto) 1.1 10 ^3/uL (0-0.8); Eosinophils % (auto) 12.8 % (0.0-7.0); Hematocrit 39.3 % (36.0-46.0); Lymphocytes % (auto) 7.8 % (10.0-50.0); Mean Corpuscular Hemoglobin 33.4 pg (28.0-32.0); Mean Corpuscular Hgb Conc. 32.5 g/dL (32.0-36.0); Mean Corpuscular Volume 102.7 fL (80.0-100.0); Monocytes # (auto) 0.6 10 ^3/uL (0-1.3); Monocytes % (auto) 7.1 % (0.0-12.0); Neutrophils # (auto) 6.1 10 ^3/uL (1.6-8.6); Neutrophils % (auto) 71.2 % (37.0-80.0); Nucleated Red Blood Cells % 0.1 %; Platelet Count (auto) 180 10^3/uL (140-450); Red Blood Cells 3.83 10^6/uL (4.0-5.20); Red Cell Distribution Width 14.6 % (11.8-14.3); White Blood Cell 8.6 10^3/uL (4.4-10.8)
[2020-08-01 10:08] LABS: Albumin 2.6 g/dL (3.4-5.0); BUN/Creatinine Ratio 10.4; Calcium 8.3 mg/dL (8.5-10.1); Potassium 4.1 mmol/L (3.5-5.1)
[2020-08-01 10:13] LABS: Bilirubin, Total 0.9 mg/dL (0.2-1.0); Total Protein 6.8 g/dL (6.4-8.2)
[2020-08-01] MEDS ORDERED: NITROGLYCERIN 0.4 MG SL TAB SL PRN ×2 (12:00→22:45)
[2020-08-01] MEDS ORDERED: MORPHINE SULF INJ 2 MG/ML SYRINGE 1ML IV PRN ×3 (12:00→22:45)
[2020-08-01] MEDS ORDERED: cefTRIAXone 1GM/50ML D5W 50 ML IV ONE (12:15)
[2020-08-01] MEDS ORDERED: LACTULOSE 20Gm/30ML SOLN PO PRN (12:15)
[2020-08-01] MEDS ORDERED: LACTULOSE 20Gm/30ML SOLN PO ONE (12:15)
[2020-08-01 12:28] LABS: INR 1.11 (0.9-1.15); Partial Thromboplastin Time 27.6 sec (23.0-31.2)
--- NOTE | 2020-08-01 13:15 | NUR ---
Midline Placement: Patient educated on need for midline placement. All risks and benefits explained and all questions and concerns addresses prior to procedure. 18g/10 cm midline inserted via right basilic vein using Ultrasound. Sterile technique utilized. Blood return obtained from the single lumen and flushed easily with NS using proper technique. Midline secured with saline lock; biodisc and occlusive dressing applied. Primary RN Elizabeth notified. Midline lot # [id number]
--- NOTE | 2020-08-01 13:41 | NUR ---
Telemetry admit from [facility] admitted to Telemetry unit after SBAR received. Patient oriented to ALONDRA SHEPARD RN primary RN, room 293, bed B, and unit policies regarding patient care and visiting hours. Patient now on continuous telemetry monitoring, tele box #94 and telemetry reading on arrival to unit is sinus rhythm. Bed is in the lowest and locked position with side rails up x 2 and call light within reach. Patient placed on room air, weighed by bedscale and encouraged to call if they need something. All questions and concerns addressed, patient verbalized understanding.
[2020-08-01 17:00] VITALS: BP 128/63
[2020-08-01] MEDS ORDERED: ENOXAPARIN SOD 40 MG/0.4 ML SYRINGE SC ONE (19:30)
--- NOTE | 2020-08-01 19:30 | NUR ---
Opening Shift Note Assumed care of patient, awake and alert. No S/S of distress/SOB or pain. Currently on hemodialysis. Instructed on POC and to call for assist PRN, will continue to monitor for changes Q1hr and PRN.
[2020-08-01 20:00] VITALS: BP 121/64
[2020-08-01 22:00] VITALS: BP 121/64
--- NOTE | 2020-08-01 22:12 | NUR ---
Patient's dialysis treatment is complete. patient tolerated well. no adverse events during dialysis.
[2020-08-01] MEDS ORDERED: HYDROcodone-ACET 5/325MG TAB PO PRN (22:45)
[2020-08-01] MEDS ORDERED: hydrALAZINE HCL 25 MG TAB PO PRN ×2 (22:45)
[2020-08-01] MEDS ORDERED: ALUM & MAG HYDROX-SIMETH LIQ(MAALOX) 30 ML PO PRN (22:45)
[2020-08-01] MEDS ORDERED: B-COMPLEX W/ C & FOLIC ACID(NEPHROVITE TAB) PO ONE (22:45)
[2020-08-01] MEDS ORDERED: DORZOLAMIDE HCL 2% OPTH(EYE) SOL 10ML EACHEYE ONE (22:45)
[2020-08-01] MEDS ORDERED: DOCUSATE SOD 100 MG CAP PO PRN (22:45)
[2020-08-01] MEDS ORDERED: ACETAMINOPHEN 325 MG TAB PO PRN (22:45)
[2020-08-01] MEDS ORDERED: ERGOCALCIFEROL 50,000 UNIT(1.25MG) CAP PO SCH (22:45)
[2020-08-01] MEDS ORDERED: METOCLOPRAMIDE HCL 10 MG TAB PO PRN (22:45)
[2020-08-01] MEDS ORDERED: LORazepam 0.5 MG TAB PO PRN (22:45)
[2020-08-01] MEDS ORDERED: DEXTROSE (50%) 50ML SYRG IV PRN (23:00)
[2020-08-02 05:00] VITALS: BP 130/81
[2020-08-02] MEDS: DORZOLAMIDE HCL 2% OPTH(EYE) SOL 10ML EACHEYE SCH ×3 (06:00→22:00)
[2020-08-02] MEDS ORDERED: SILDENAFIL CITRATE 20 MG TAB PO SCH (06:00)
--- NOTE | 2020-08-02 06:26 | NUR ---
medications related to dialysis were held this morning. the patient already had dialysis last night and will not being having it this morning.
[2020-08-02] MEDS: FUROSEMIDE 40 MG/4 ML VIAL IV SCH ×2 (06:42→17:00)
[2020-08-02] MEDS: ACCU-CHEK COMFORT CURVE STRIP VI SCH ×4 (06:42→22:21)
[2020-08-02] MEDS: InsuLIN REG 1unit/0.01ml Soln (100units/ml) SC SCH ×3 (06:44→16:45)
[2020-08-02] MEDS ORDERED: SODIUM CHL 0.9% 1000 ML BAG XX ONE (07:00)
--- NOTE | 2020-08-02 07:20 | NUR ---
RECEIVED CALL FROM U/[facility] STATING PT TO HAVE PARACENTESIS THIS AM AND TO OBTAIN THE TRAY AND BOTTLES, CALLED [facility] BACK THERE IS NO ORDER TO OBTAIN CONSENT FOR PARACENTESIS, PER U/[facility] YOU JUST PRINT IT AND HAVE PT SIGN
--- NOTE | 2020-08-02 07:50 | NUR ---
WENT TO PT ROOM TO HAVE CONSENT SIGNED, PT SPEAKS GREEK ONLY STATED NOTHING HAS BEEN EXPLAINED TO HER, ALSO PT IS BLIND PT LEGALLY CANT SIGN CONSENT, CALLED [facility] STATED MD NEEDS TO BE BEDSIDE WITH FACTORY LABORER TO EXPLAIN PROCEDURE WITH LICENSED WITNESSES, U/S STATED SHE HAS SIGNED THEM IN THE PAST, CALLED PROCESS SAFETY ENGINEERING TECHNOLOGIST PER CHARGE LEGALLY SOMEONE WHO IS BLIND CANT SIGN A CONSENT, PROCEDURE HAS TO BE EXPLAINED BY MD IN PRESCIENCE OF TWO LICENSED NURSES TO WITNESS, EXPLAINED THAT TO [facility] BRAD SHE STATED SHE WILL TALK TO MD GLEASON
[2020-08-02] MEDS: FERROUS SULFATE 325 MG TAB PO SCH ×3 (08:00→17:00)
[2020-08-02] MEDS: SEVELAMER 800 MG TAB PO SCH ×3 (08:00→17:00)
--- NOTE | 2020-08-02 08:05 | NUR ---
U[facility]S BRAD CALLED BACK STATED EXPLAINED PROCEDURE YESTERDAY AND TO HAVE CONSENT SIGNED, EXPLAINED TO U/S THAT I WAS NOT A WITNESS TO THAT EXPLANATION AND IT WILL HAVE TO BE RE EXPLAINED IN ORDER FOR CONSENT TO BE SIGNED, ALSO STATED I AHD ALL SUPLLIES IN ROOM READY TO GO, PER Lynette/S BRAD, PROCEDURE TO BE DONE ON TUESDAY WHEN RADIOLOGY NURSE CAN SIGN CONSENT, CLARIFIED WITH BRAD, THAT EVERYTHING IS READY TO GO IF MD IS BEDSIDE HE CAN QUICKLY EXPLAIN AND CONSENTS CAN BE SIGNED RIGHT BEFORE PROCEDURE, PER BRAD MD DOESNT WANT TO DO THAT AND IT WILL BE DONE TUESDAY, MANAGER OF PROGRAM MADE AWARE
[2020-08-02 08:15] VITALS: BP 121/64
--- NOTE | 2020-08-02 08:31 | NUR ---
MD QUIROGA BEDSIDE EXPLAINED PROCEDURE IN PRESCENCE OF TWO LICENSED RN, CONSENTS SIGNED, CALLED BRAD U/[facility] SHE STATED SHE WILL BE TO FLOOR
--- NOTE | 2020-08-02 08:50 | NUR ---
PARACENTESIS BEING DONE BEDSIDE
[2020-08-02 09:00] VITALS: BP_SYST 126; BP_SYST 138; BP_DIAS 76; BP_DIAS 86
[2020-08-02] MEDS: cefTRIAXone 1GM/50ML D5W 50 ML IV SCH (09:00)
[2020-08-02] MEDS: dilTIAZem HCL 180MG ER CAP PO SCH (09:37)
[2020-08-02] MEDS: TIMOLOL MALEATE 0.25 % OPTH SOL 5ML EACHEYE SCH ×2 (09:37→22:00)
[2020-08-02] MEDS: B-COMPLEX W/ C & FOLIC ACID(NEPHROVITE TAB) PO SCH (09:37)
[2020-08-02] MEDS: METOPROLOL SUCCINATE XL 50 MG TAB PO SCH ×2 (09:39→10:11)
[2020-08-02] MEDS ORDERED: METOPROLOL TARTRATE 50 MG TAB PO SCH (10:00)
[2020-08-02] MEDS ORDERED: CHOLECALCIFEROL (VITD3) 2,000 UNIT CAP PO SCH (10:00)
[2020-08-02] MEDS ORDERED: ENOXAPARIN SOD 40 MG/0.4 ML SYRINGE SC SCH (10:00)
[2020-08-02] MEDS: APIXABAN 2.5 MG TAB PO SCH (10:11)
[2020-08-02] MEDS: SILDENAFIL CITRATE 20 MG TAB PO SCH ×2 (11:34→17:00)
[2020-08-02 17:20] VITALS: BP 152/69
--- NOTE | 2020-08-02 19:30 | NUR ---
Opening Shift Note Assumed care of patient, awake and alert. No S/S of distress/SOB or pain. Instructed on POC and to call for assist PRN, will continue to monitor for changes Q1hr and PRN.
[2020-08-02 20:00] VITALS: BP 139/84
[2020-08-02 22:00] VITALS: BP 139/84
[2020-08-02] MEDS ORDERED: ATORVASTATIN 20 MG TAB PO SCH (22:00)
[2020-08-02] MEDS ORDERED: InsuLIN REG 1unit/0.01ml Soln (100units/ml) SC SCH (22:00)
[2020-08-02] MEDS ORDERED: AMITRIPTYLINE HCL 25 MG TAB PO SCH (22:00)
[2020-08-03 05:00] VITALS: BP 142/86
[2020-08-03] MEDS: DORZOLAMIDE HCL 2% OPTH(EYE) SOL 10ML EACHEYE SCH ×2 (06:00→14:00)
[2020-08-03] MEDS: FUROSEMIDE 40 MG/4 ML VIAL IV SCH (06:11)
[2020-08-03] MEDS: ACCU-CHEK COMFORT CURVE STRIP VI SCH ×2 (06:11→11:34)
[2020-08-03] MEDS: SILDENAFIL CITRATE 20 MG TAB PO SCH ×2 (06:11→12:22)
[2020-08-03] MEDS: InsuLIN REG 1unit/0.01ml Soln (100units/ml) SC SCH ×2 (06:14→11:40)
[2020-08-03 08:41] VITALS: BP 162/101
[2020-08-03] MEDS: SEVELAMER 800 MG TAB PO SCH ×2 (08:59→12:22)
[2020-08-03] MEDS: FERROUS SULFATE 325 MG TAB PO SCH ×2 (08:59→12:22)
[2020-08-03] MEDS: METOPROLOL SUCCINATE XL 50 MG TAB PO SCH (09:00)
[2020-08-03] MEDS: APIXABAN 2.5 MG TAB PO SCH (09:00)
[2020-08-03] MEDS: dilTIAZem HCL 180MG ER CAP PO SCH (09:01)
[2020-08-03] MEDS: cefTRIAXone 1GM/50ML D5W 50 ML IV SCH (09:01)
[2020-08-03] MEDS: B-COMPLEX W/ C & FOLIC ACID(NEPHROVITE TAB) PO SCH (09:01)
[2020-08-03] MEDS: TIMOLOL MALEATE 0.25 % OPTH SOL 5ML EACHEYE SCH (09:01)
[2020-08-03] MEDS ORDERED: CHOLECALCIFEROL (VITD3) 1,000UNIT=25mCg TAB PO SCH (10:00)
--- NOTE | 2020-08-03 10:52 | NUR ---
Paulina ROUNDING: Paulina CAMERON ROUNDING. INFORMED OF PATIENT STATUS. PATIENT REPORTS FEELING BETTER THIS AM. DENIES ANY PAIN AT THIS TIME. INFORMED OF PENDING CARDIOLOGY CONSULT THAT HAS NOT BEEN DONE. PER Paulina CAMERON OK TO CANCEL CONSULT. INFORMED Paulina AMADOR ENTERED ORDERS FOR DIALYSIS TOMORROW. PER Paulina CAMERON OK TO DC AND OUTPATIENT DIALYSIS.
[2020-08-03 12:44] VITALS: BP 130/93
--- NOTE | 2020-08-03 15:30 | NUR ---
Discharge instructions given as ordered. Encourage to follow up with PMD as instructed. Discharged with home wheelchair. Informed son of follow up for GI and other procedures along with patient present.All questions and concerns addressed. Patient verbalized understanding. Medication reconciliation form completed and copy given to patient. IV removed with catheter intact, pressure dressing applied. Telemetry unit returned to ICU. Patient taken to vehicle via wheelchair with all personal belongings, accompanied by staff and family member. No distress noted at time of departure.
[2020-08-04] MEDS ORDERED: SODIUM CHL 0.9% 1000 ML BAG XX ONE (07:00)
== END 2020-08-03 15:30 | disposition home or self-care (01) | DRG 432 ==
LOC: ER 09:04 → TELE 09:05 → TELE-WESTW 13:53
PROVIDERS: ADMIT Hospitalist; ATTEND Hospitalist
PROC: 5A1D70Z Performance of Urinary Filtration, Intermittent, Less than 6 Hours Per Day (ICD-10-PCS; 2020-08-01)
PROC: 0W9G3ZZ Drainage of Peritoneal Cavity, Percutaneous Approach (ICD-10-PCS; principal; 2020-08-02)
DX: K70.31 Alcoholic cirrhosis of liver with ascites (principal); N18.6 End stage renal disease; G93.41 Metabolic encephalopathy; D68.4 Acquired coagulation factor deficiency; I31.3 Pericardial effusion (noninflammatory); I42.9 Cardiomyopathy, unspecified; I50.42 Chronic combined systolic (congestive) and diastolic (congestive) heart failure; I13.2 Hypertensive heart and chronic kidney disease with heart failure and with stage 5 chronic kidney disease, or end stage renal disease; D63.1 Anemia in chronic kidney disease; E11.319 Type 2 diabetes mellitus with unspecified diabetic retinopathy without macular edema; E11.40 Type 2 diabetes mellitus with diabetic neuropathy, unspecified; H54.8 Legal blindness, as defined in USA; I27.21 Secondary pulmonary arterial hypertension; I50.82 Biventricular heart failure; E78.5 Hyperlipidemia, unspecified; F32.9 Major depressive disorder, single episode, unspecified; E78.00 Pure hypercholesterolemia, unspecified; E88.09 Other disorders of plasma-protein metabolism, not elsewhere classified; M10.9 Gout, unspecified; E11.22 Type 2 diabetes mellitus with diabetic chronic kidney disease; I25.10 Atherosclerotic heart disease of native coronary artery without angina pectoris; Z79.4 Long term (current) use of insulin; Z82.3 Family history of stroke; Z82.49 Family history of ischemic heart disease and other diseases of the circulatory system; Z99.2 Dependence on renal dialysis; Z86.73 Personal history of transient ischemic attack (TIA), and cerebral infarction without residual deficits; Z83.3 Family history of diabetes mellitus; Z91.19 Patient's noncompliance with other medical treatment and regimen; Z91.81 History of falling; Z79.01 Long term (current) use of anticoagulants
CPT/HCPCS: 10022; 36415; 36600; 76700; 76942; 80053; 80061; 82306; 82728; 82805; 82962; 83516; 83970; 84100; 84484; 85025; 85610; 85730; 86225; 86235; 87040; 90935; 93005; 96365; G0378; J0696; J1815

== ENCOUNTER 2020-08-26 09:07 | Emergency (ER) | payer MEDICARE, MEDICAID ==
[~2020-08-26] VITALS: Ht 162.6 cm; Wt 63.5 kg
[2020-08-26 09:50] VITALS: BP 117/80
== END 2020-08-26 13:30 | disposition home or self-care (01) ==
LOC: ER 09:07
DX: E11.22 Type 2 diabetes mellitus with diabetic chronic kidney disease (principal); I13.2 Hypertensive heart and chronic kidney disease with heart failure and with stage 5 chronic kidney disease, or end stage renal disease; I50.9 Heart failure, unspecified; N18.6 End stage renal disease; R18.8 Other ascites; I25.10 Atherosclerotic heart disease of native coronary artery without angina pectoris; E78.5 Hyperlipidemia, unspecified; Z99.2 Dependence on renal dialysis; Z86.2 Personal history of diseases of the blood and blood-forming organs and certain disorders involving the immune mechanism; Z86.73 Personal history of transient ischemic attack (TIA), and cerebral infarction without residual deficits; Z90.89 Acquired absence of other organs; Z79.899 Other long term (current) drug therapy

== ENCOUNTER → 2020-09-09 | Outpatient (CLI) | payer MEDICARE, MEDICAID ==
[2020-09-09 10:50] LABS: INR 1.02 (0.9-1.15); Partial Thromboplastin Time 24.8 sec (23.0-31.2)
--- NOTE | 2020-09-09 12:00 | NUR ---
PATIENT UNDERWENT PARACENTESIS IN [facility] DEPT PER DR GARRIDO WITH LOCAL ANESTHETIC. 4500 ML OF DK ANDREINA LIQ OBTAINED - PATIENT MELISSA. WELL. BANDAID APPLIED TO RT LOWER ABD - NO BLEEDING OR HEMATOMA NOTED AT SITE. 1105 148/91 - HR113 - RR 20 SAO2 96% 1117 141/91- HR 113- RR 17 SAO2 96% 1122 142/85 - HR 112-RR 18 SAO2 94% 1127 148/85-HR 112-RR 16 SAO2 93% INSTRUCTED TO DEEP BREATH 1132 151/81 HR112- RR 15 SAO2 96% 1137 151/86 - HR 112-RR 17 SAO2 96% 1142 153/86 - HR 112-RR 16 SAO2 93% INSTRUCTED AGAIN TO DEEP BREATH DEEPLY - PATIENT COMPLIANT PATIENT DISCHARGED HOME WITH CAREGIVER IN STABLE CONDITION.
== END | disposition home or self-care (01) ==
LOC: US 08:09
PROVIDERS: ATTEND Internal Medicine Gastroenterology
DX: R18.8 Other ascites (principal); I50.9 Heart failure, unspecified; I25.10 Atherosclerotic heart disease of native coronary artery without angina pectoris; F32.9 Major depressive disorder, single episode, unspecified; F41.9 Anxiety disorder, unspecified; Z95.5 Presence of coronary angioplasty implant and graft
CPT/HCPCS: 36415; 49083; 85610; 85730; C1729; 10022; 76942

== ENCOUNTER → 2020-10-07 | Outpatient (CLI) | payer MEDICARE, MEDICAID | END | disposition home or self-care (01) | LOC: Rad HDHVI 10:38 | PROVIDERS: ATTEND Internal Medicine | DX: M17.12 Unilateral primary osteoarthritis, left knee (principal); M25.562 Pain in left knee; M25.552 Pain in left hip; M25.551 Pain in right hip; M16.0 Bilateral primary osteoarthritis of hip; M85.89 Other specified disorders of bone density and structure, multiple sites | CPT/HCPCS: 73562 ==

== ENCOUNTER 2020-10-16 08:52 | Emergency (ER) | payer MEDICARE, MEDICAID ==
[~2020-10-16] VITALS: Ht 162.6 cm; Wt 65.8 kg
[~2020-10-16 08:52] MED LIST changes: -METO-5 PO; +METO1TAB77 PO
[2020-10-16 09:47] LABS: Hemoglobin 11.7 g/dL (12.2-16.2); Mean Corpuscular Hemoglobin 33.5 pg (28.0-32.0); Mean Corpuscular Hgb Conc. 33.5 g/dL (32.0-36.0); Platelet Count (auto) 132 10^3/uL (140-450); Red Cell Distribution Width 14.2 % (11.8-14.3); White Blood Cell 8.3 10^3/uL (4.4-10.8)
[2020-10-16 09:52] LABS: Basophils % (manual) 0 (0.0-2.0); Blast Cells 0; Metamyelocytes % 0; Myelocytes % 0; Promyelocytes % 0; Reactive Lymphocytes 0
[2020-10-16 10:02] LABS: Albumin 2.7 g/dL (3.4-5.0); BUN/Creatinine Ratio 9.1; Calcium 8.4 mg/dL (8.5-10.1); Potassium 3.9 mmol/L (3.5-5.1)
[2020-10-16 10:11] LABS: Bilirubin, Total 0.6 mg/dL (0.2-1.0)
[2020-10-16 10:38] LABS: INR 1.1 (0.9-1.15)
[2020-10-16 11:38] LABS: Band Neutrophils % (manual) 1; Eosinophils % (manual) 15 (0-7); Lymphocytes % (manual) 4 (10.0-50.0); Monocytes % (manual) 5 (0-12)
[2020-10-16 12:00] VITALS: BP 148/88
== END 2020-10-16 12:51 | disposition home or self-care (01) ==
LOC: ER 08:52
DX: E11.22 Type 2 diabetes mellitus with diabetic chronic kidney disease (principal); I13.2 Hypertensive heart and chronic kidney disease with heart failure and with stage 5 chronic kidney disease, or end stage renal disease; I50.9 Heart failure, unspecified; N18.6 End stage renal disease; R18.8 Other ascites; E78.5 Hyperlipidemia, unspecified
CPT/HCPCS: 36415; 49083; 76700; 76942; 80053; 82150; 83690; 84484; 85007; 85027; 85610; 93005; 99285; C1729; 10022

== ENCOUNTER 2020-11-03 09:23 | Inpatient (IN) | payer MEDICARE, MEDICAID ==
[~2020-11-03] VITALS: Ht 162.6 cm; Wt 56.2 kg
[2020-11-03 10:06] LABS: Hematocrit 36.1 % (36.0-46.0); Hemoglobin 11.7 g/dL (12.2-16.2); Mean Corpuscular Hemoglobin 33.4 pg (28.0-32.0); Mean Corpuscular Hgb Conc. 32.4 g/dL (32.0-36.0); Mean Corpuscular Volume 103.1 fL (80.0-100.0); Platelet Count (auto) 177 10^3/uL (140-450); Red Cell Distribution Width 14.7 % (11.8-14.3); White Blood Cell 8.3 10^3/uL (4.4-10.8)
[2020-11-03 10:08] LABS: Band Neutrophils % (manual) 0; Basophils % (manual) 0 (0.0-2.0); Blast Cells 0; Metamyelocytes % 0; Myelocytes % 0; Promyelocytes % 0; Reactive Lymphocytes 0
[2020-11-03 10:26] LABS: Albumin 2.6 g/dL (3.4-5.0); Calcium 8.3 mg/dL (8.5-10.1)
[2020-11-03 10:27] LABS: Eosinophils % (manual) 15 (0-7); Lymphocytes % (manual) 9 (10.0-50.0); Monocytes % (manual) 1 (0-12)
[2020-11-03 10:29] LABS: BUN/Creatinine Ratio 8.1; Bilirubin, Total 0.8 mg/dL (0.2-1.0)
[2020-11-03 10:36] LABS: Potassium 5.9 mmol/L (3.5-5.1)
[2020-11-03] MEDS ORDERED: DEXTROSE (50%) 50ML SYRG IV ONE (12:00)
[2020-11-03] MEDS ORDERED: SODIUM ZIRCONIUM CYCL 10 GM PAK PO ONE (12:00)
[2020-11-03] MEDS ORDERED: SODIUM BICARBONATE 8.4% INJ 50ML SYRINGE IV ONE (12:00)
[2020-11-03] MEDS ORDERED: InsuLIN REG 1unit/0.01ml Soln (100units/ml) IV ONE (12:00)
[2020-11-03] MEDS ORDERED: ALBUTEROL SULF 2.5 MG/0.5ML(0.5%) NEB SOLN NEB ONE (12:00)
[2020-11-03] MEDS ORDERED: FUROSEMIDE 20 MG/2 ML VIAL IV ONE (12:00)
[2020-11-03] MEDS ORDERED: CALCIUM GLUC 4.65meq/50ml D5AE 50 ML IV ONE (12:00)
[2020-11-03] MEDS ORDERED: MORPHINE SULF INJ 2 MG/ML SYRINGE 1ML IV PRN ×2 (13:45)
[2020-11-03] MEDS ORDERED: ONDANSETRON HCL 4 MG/2 ML VIAL IV PRN (13:45)
[2020-11-03] MEDS ORDERED: DEXTROSE (50%) 50ML SYRG IV PRN (13:45)
[2020-11-03] MEDS ORDERED: ERGOCALCIFEROL 50,000 UNIT(1.25MG) CAP PO SCH (13:45)
[2020-11-03] MEDS ORDERED: hydrALAZINE HCL 25 MG TAB PO PRN (13:45)
[2020-11-03] MEDS ORDERED: HYDROcodone-ACET 5/325MG TAB PO PRN (13:45)
[2020-11-03] MEDS ORDERED: ACETAMINOPHEN 500 MG TAB PO PRN (13:45)
[2020-11-03] MEDS ORDERED: FERROUS SULFATE 325 MG TAB PO ONE (14:00)
[2020-11-03] MEDS ORDERED: METOPROLOL TARTRATE 50 MG TAB PO ONE (14:00)
[2020-11-03] MEDS ORDERED: dilTIAZem 120MG ER CAP PO ONE (14:00)
[2020-11-03] MEDS ORDERED: FAMOTIDINE 20 MG TAB PO ONE (14:00)
[2020-11-03] MEDS: B-COMPLEX W/ C & FOLIC ACID(NEPHROVITE TAB) PO SCH (14:47)
[2020-11-03] MEDS: SEVELAMER 800 MG TAB PO SCH ×2 (14:48→22:00)
[2020-11-03] MEDS: SILDENAFIL CITRATE 20 MG TAB PO SCH ×2 (14:49→22:00)
[2020-11-03] MEDS: InsuLIN REG 1unit/0.01ml Soln (100units/ml) SC SCH ×2 (17:00→22:09)
[2020-11-03] MEDS: ACCU-CHEK COMFORT CURVE STRIP VI SCH ×2 (17:56→22:00)
[2020-11-03] MEDS: AMITRIPTYLINE HCL 25 MG TAB PO SCH (18:58)
[2020-11-03] MEDS: ATORVASTATIN 20 MG TAB PO SCH (21:59)
[2020-11-03] MEDS: SODIUM ZIRCONIUM CYCL 10 GM PAK PO SCH (22:00)
[2020-11-03] MEDS: METOPROLOL TARTRATE 50 MG TAB PO SCH (22:00)
[2020-11-04 00:13] VITALS: BP 121/67
[2020-11-04] MEDS: SODIUM ZIRCONIUM CYCL 10 GM PAK PO SCH ×2 (05:40→15:16)
[2020-11-04] MEDS: ACCU-CHEK COMFORT CURVE STRIP VI SCH ×4 (06:28→22:18)
[2020-11-04] MEDS: InsuLIN REG 1unit/0.01ml Soln (100units/ml) SC SCH ×4 (06:28→22:00)
[2020-11-04] MEDS ORDERED: SODIUM CHL 0.9% 1000 ML BAG XX ONE (07:00)
[2020-11-04] MEDS: SILDENAFIL CITRATE 20 MG TAB PO SCH ×3 (07:06→21:51)
[2020-11-04] MEDS: SEVELAMER 800 MG TAB PO SCH ×3 (07:06→21:50)
[2020-11-04 08:00] VITALS: BP 114/74
[2020-11-04] MEDS: METOPROLOL TARTRATE 50 MG TAB PO SCH ×2 (10:00→22:00)
[2020-11-04] MEDS: FERROUS SULFATE 325 MG TAB PO SCH (11:30)
[2020-11-04] MEDS: FAMOTIDINE 20 MG TAB PO SCH (11:31)
[2020-11-04] MEDS: dilTIAZem 120MG ER CAP PO SCH (11:31)
[2020-11-04] MEDS: B-COMPLEX W/ C & FOLIC ACID(NEPHROVITE TAB) PO SCH (11:31)
[2020-11-04 13:00] VITALS: BP 127/75
[2020-11-04 16:41] VITALS: BP 127/63
[2020-11-04] MEDS: AMITRIPTYLINE HCL 25 MG TAB PO SCH (18:00)
[2020-11-04] MEDS: ATORVASTATIN 20 MG TAB PO SCH (21:50)
[2020-11-04 22:00] VITALS: BP 114/64
[2020-11-05 05:00] VITALS: BP 122/76
[2020-11-05] MEDS: SILDENAFIL CITRATE 20 MG TAB PO SCH ×2 (05:28→14:10)
[2020-11-05] MEDS: SEVELAMER 800 MG TAB PO SCH ×2 (05:28→14:10)
[2020-11-05] MEDS: ACCU-CHEK COMFORT CURVE STRIP VI SCH ×2 (05:39→11:59)
[2020-11-05] MEDS: InsuLIN REG 1unit/0.01ml Soln (100units/ml) SC SCH ×2 (05:44→12:00)
[2020-11-05 07:54] LABS: Hematocrit 34.5 % (36.0-46.0); Hemoglobin 11.4 g/dL (12.2-16.2); Mean Corpuscular Hemoglobin 32.8 pg (28.0-32.0); Mean Corpuscular Hgb Conc. 33.2 g/dL (32.0-36.0); Mean Corpuscular Volume 98.9 fL (80.0-100.0); Platelet Count (auto) 156 10^3/uL (140-450); Red Blood Cells 3.49 10^6/uL (4.0-5.20); White Blood Cell 7.3 10^3/uL (4.4-10.8)
[2020-11-05 07:59] LABS: Basophils % (manual) 0 (0.0-2.0); Blast Cells 0; Metamyelocytes % 0; Myelocytes % 0; Promyelocytes % 0; Reactive Lymphocytes 0
[2020-11-05 08:14] LABS: Calcium 7.5 mg/dL (8.5-10.1); Potassium 3.9 mmol/L (3.5-5.1)
[2020-11-05 08:19] LABS: BUN/Creatinine Ratio 6.5; Bilirubin, Total 0.5 mg/dL (0.2-1.0); Total Protein 5.4 g/dL (6.4-8.2)
[2020-11-05 09:00] VITALS: BP 94/64
[2020-11-05] MEDS: FERROUS SULFATE 325 MG TAB PO SCH (10:14)
[2020-11-05] MEDS: FAMOTIDINE 20 MG TAB PO SCH (10:15)
[2020-11-05] MEDS: B-COMPLEX W/ C & FOLIC ACID(NEPHROVITE TAB) PO SCH (10:15)
[2020-11-05] MEDS: METOPROLOL TARTRATE 50 MG TAB PO SCH (10:15)
[2020-11-05] MEDS: dilTIAZem 120MG ER CAP PO SCH (10:15)
[2020-11-05 11:30] LABS: Band Neutrophils % (manual) 4; Eosinophils % (manual) 22 (0-7); Lymphocytes % (manual) 21 (10.0-50.0); Monocytes % (manual) 3 (0-12)
[2020-11-05 13:00] VITALS: BP 114/73
[2020-11-06] MEDS ORDERED: SODIUM CHL 0.9% 1000 ML BAG XX ONE (07:00)
== END 2020-11-05 16:37 | disposition home health service (06) | DRG 432 ==
LOC: ER 09:23 → TELE 09:24 → TELE-EAST 23:14 → TELE-WESTW 11-04 04:10
PROVIDERS: ADMIT Nurse Practitioner Acute Care; ATTEND Internal Medicine
PROC: 0W9G3ZZ Drainage of Peritoneal Cavity, Percutaneous Approach (ICD-10-PCS; 2020-11-03)
PROC: 5A1D70Z Performance of Urinary Filtration, Intermittent, Less than 6 Hours Per Day (ICD-10-PCS; principal; 2020-11-04)
DX: K74.60 Unspecified cirrhosis of liver (principal); N18.6 End stage renal disease; U07.1 COVID-19; E44.0 Moderate protein-calorie malnutrition; R18.8 Other ascites; I13.2 Hypertensive heart and chronic kidney disease with heart failure and with stage 5 chronic kidney disease, or end stage renal disease; I50.42 Chronic combined systolic (congestive) and diastolic (congestive) heart failure; E87.5 Hyperkalemia; E11.40 Type 2 diabetes mellitus with diabetic neuropathy, unspecified; D63.1 Anemia in chronic kidney disease; G47.00 Insomnia, unspecified; I25.10 Atherosclerotic heart disease of native coronary artery without angina pectoris; Z79.01 Long term (current) use of anticoagulants; Z79.4 Long term (current) use of insulin; Z82.3 Family history of stroke; Z82.49 Family history of ischemic heart disease and other diseases of the circulatory system; Z83.3 Family history of diabetes mellitus; Z86.73 Personal history of transient ischemic attack (TIA), and cerebral infarction without residual deficits; Z99.2 Dependence on renal dialysis; E11.22 Type 2 diabetes mellitus with diabetic chronic kidney disease; F32.9 Major depressive disorder, single episode, unspecified; M10.9 Gout, unspecified; Z90.49 Acquired absence of other specified parts of digestive tract
CPT/HCPCS: 10022; 36415; 49083; 71045; 76942; 80053; 82962; 84132; 85007; 85027; 87081; 87426; 90935; 94640; 96365; 96375; G0378; J0610; J1815

== ENCOUNTER 2020-11-19 09:25 | Inpatient (IN) | payer MEDICARE, MEDICAID ==
[~2020-11-19] VITALS: Ht 162.6 cm; Wt 61.9 kg
[~2020-11-19 09:25] MED LIST changes: +DORZ2SOL18 EACHEYE; -DORZ2SOL18 LEFTEYE
[2020-11-19 10:18] LABS: Albumin 2.5 g/dL (3.4-5.0); Calcium 7.8 mg/dL (8.5-10.1); Potassium 4.8 mmol/L (3.5-5.1)
[2020-11-19 10:24] LABS: BUN/Creatinine Ratio 8.6; Bilirubin, Total 0.7 mg/dL (0.2-1.0); Total Protein 6.9 g/dL (6.4-8.2)
[2020-11-19] MEDS ORDERED: HYDROmorphone HCL 2 MG/ML VL IV ONE (10:30)
[2020-11-19] MEDS ORDERED: PROMETHAZINE HCL 25 MG/ML 1ML IV PRN (10:30)
[2020-11-19] MEDS ORDERED: SODIUM CHLORIDE 0.9% 1,000 ML IV ONE (10:30)
[2020-11-19 11:02] LABS: Basophils # (auto) 0.2 10 ^3/uL (0-0.2); Basophils % (auto) 2.3 % (0.0-2.0); Eosinophils # (auto) 1.3 10 ^3/uL (0-0.8); Hematocrit 35.1 % (36.0-46.0); Hemoglobin 11.5 g/dL (12.2-16.2); Lymphocytes # (auto) 0.9 10 ^3/uL (0.4-5.4); Mean Corpuscular Hemoglobin 32.6 pg (28.0-32.0); Mean Corpuscular Hgb Conc. 32.7 g/dL (32.0-36.0); Mean Corpuscular Volume 99.5 fL (80.0-100.0); Monocytes # (auto) 0.5 10 ^3/uL (0-1.3); Monocytes % (auto) 5.5 % (0.0-12.0); Neutrophils # (auto) 5.8 10 ^3/uL (1.6-8.6); Neutrophils % (auto) 67.2 % (37.0-80.0); Nucleated Red Blood Cells % 0.4 %; Platelet Count (auto) 227 10^3/uL (140-450); Red Blood Cells 3.53 10^6/uL (4.0-5.20); Red Cell Distribution Width 13.7 % (11.8-14.3); White Blood Cell 8.6 10^3/uL (4.4-10.8)
[2020-11-19 12:42] LABS: INR 1.06 (0.9-1.15); Partial Thromboplastin Time 27.5 sec (23.0-31.2)
[2020-11-19] MEDS ORDERED: LACTULOSE 20Gm/30ML SOLN PO ONE (15:00)
[2020-11-19] MEDS: FUROSEMIDE 40 MG/4 ML VIAL IV ONE (15:00)
[2020-11-19] MEDS ORDERED: NITROGLYCERIN 0.4 MG SL TAB SL PRN ×2 (15:15→15:30)
[2020-11-19] MEDS ORDERED: FUROSEMIDE 100 MG/10ML VIAL IV ONE (15:15)
[2020-11-19] MEDS ORDERED: MORPHINE SULF INJ 2 MG/ML SYRINGE 1ML IV PRN ×3 (15:15→15:30)
[2020-11-19] MEDS ORDERED: DOCUSATE SOD 100 MG CAP PO PRN (15:30)
[2020-11-19] MEDS ORDERED: ONDANSETRON HCL 4 MG/2 ML VIAL IV PRN (15:30)
[2020-11-19] MEDS ORDERED: LORazepam 0.5 MG TAB PO PRN (15:30)
[2020-11-19] MEDS ORDERED: ALUM & MAG HYDROX-SIMETH LIQ(MAALOX) 30 ML PO PRN (15:30)
[2020-11-19] MEDS ORDERED: HYDROcodone-ACET 5/325MG TAB PO PRN (15:30)
[2020-11-19] MEDS ORDERED: PANTOPRAZOLE 40 MG/10 ML VIAL INJ IV ONE (15:30)
[2020-11-19] MEDS ORDERED: ACETAMINOPHEN 325 MG TAB PO PRN (15:30)
[2020-11-19] MEDS ORDERED: hydrALAZINE HCL 25 MG TAB PO PRN (15:45)
[2020-11-19] MEDS ORDERED: METOCLOPRAMIDE HCL 10 MG TAB PO PRN (15:45)
[2020-11-19] MEDS ORDERED: cefTRIAXone 1GM/50ML D5W 50 ML IV ONE (16:00)
[2020-11-19] MEDS ORDERED: hydrALAZINE HCL 20 MG/ML VL IV PRN (16:45)
[2020-11-19] MEDS ORDERED: DEXTROSE (50%) 50ML SYRG IV PRN (16:45)
[2020-11-19] MEDS ORDERED: RIBO50TA5 PO (16:51)
[2020-11-19] MEDS ORDERED: LISI-646 PO (16:54)
[2020-11-19] MEDS ORDERED: MAGN250T13 PO (16:57)
[2020-11-19] MEDS: InsuLIN REG 1unit/0.01ml Soln (100units/ml) SC SCH ×2 (17:00→22:00)
[2020-11-19] MEDS ORDERED: TRAZ100T3 PO (17:01)
[2020-11-19] MEDS: ACCU-CHEK COMFORT CURVE STRIP VI SCH ×2 (17:02→22:00)
[2020-11-19 17:31] LABS: Cholesterol 112 mg/dL (< 200); HDL Cholesterol 64 mg/dL (40-59); LDL Cholesterol 41 mg/dL (< 100); Lipase 67 U/L (73-393); Triglycerides 55 mg/dL (< 150)
[2020-11-19] MEDS: SEVELAMER 800 MG TAB PO SCH (18:00)
[2020-11-19] MEDS: FUROSEMIDE 40 MG/4 ML VIAL IV SCH (18:32)
[2020-11-19] MEDS: FERROUS SULFATE 325 MG TAB PO SCH (18:33)
[2020-11-19] MEDS: DORZOLAMIDE HCL 2% OPTH(EYE) SOL 10ML LEFTEYE SCH (22:00)
[2020-11-19] MEDS ORDERED: InsuLIN REG 1unit/0.01ml Soln (100units/ml) SC SCH (22:00)
[2020-11-19] MEDS: ATORVASTATIN 20 MG TAB PO SCH (22:00)
[2020-11-19] MEDS: SILDENAFIL CITRATE 20 MG TAB PO SCH (22:00)
[2020-11-19] MEDS: METOPROLOL TARTRATE 50 MG TAB PO SCH (22:00)
[2020-11-20] VITALS (16 sets, daily range): BP systolic 99–141; BP diastolic 52–87
[2020-11-20] MEDS: DORZOLAMIDE HCL 2% OPTH(EYE) SOL 10ML LEFTEYE SCH ×3 (06:00→22:21)
[2020-11-20] MEDS: FUROSEMIDE 40 MG/4 ML VIAL IV SCH ×2 (06:16→18:12)
[2020-11-20] MEDS: SILDENAFIL CITRATE 20 MG TAB PO SCH ×3 (06:16→22:22)
[2020-11-20] MEDS: ACCU-CHEK COMFORT CURVE STRIP VI SCH ×4 (06:17→22:24)
[2020-11-20] MEDS: InsuLIN REG 1unit/0.01ml Soln (100units/ml) SC SCH ×4 (06:17→22:22)
[2020-11-20] MEDS ORDERED: cefTRIAXone 1GM/50ML D5W 50 ML IV SCH (09:00)
[2020-11-20] MEDS: FERROUS SULFATE 325 MG TAB PO SCH ×3 (09:11→18:13)
[2020-11-20] MEDS: SEVELAMER 800 MG TAB PO SCH ×3 (09:12→18:13)
[2020-11-20] MEDS: PANTOPRAZOLE 40 MG/10 ML VIAL INJ IV SCH (09:39)
[2020-11-20] MEDS: METOPROLOL TARTRATE 50 MG TAB PO SCH (09:40)
[2020-11-20] MEDS: CHOLECALCIFEROL (VITD3) 2,000 UNIT CAP/TAB PO SCH (09:40)
[2020-11-20] MEDS: B-COMPLEX W/ C & FOLIC ACID(NEPHROVITE TAB) PO SCH (09:40)
[2020-11-20] MEDS ORDERED: APIXABAN 2.5 MG TAB PO SCH (10:00)
[2020-11-20] MEDS ORDERED: dilTIAZem 120MG ER CAP PO SCH (10:00)
[2020-11-20 11:09] LABS: Hepatitis B Surface Antigen Negative (Negative)
[2020-11-20 11:10] LABS: Hepatitis C Antibody Negative (Negative)
[2020-11-20] MEDS ORDERED: ALBUMIN 25% 100 ML IV ONE (12:00)
[2020-11-20 14:44] LABS: Basophils # (auto) 0.2 10 ^3/uL (0-0.2); Basophils % (auto) 2.3 % (0.0-2.0); Eosinophils # (auto) 0.8 10 ^3/uL (0-0.8); Eosinophils % (auto) 11.5 % (0.0-7.0); Hematocrit 32.2 % (36.0-46.0); Hemoglobin 10.4 g/dL (12.2-16.2); Lymphocytes # (auto) 0.9 10 ^3/uL (0.4-5.4); Lymphocytes % (auto) 12.3 % (10.0-50.0); Mean Corpuscular Hemoglobin 32.8 pg (28.0-32.0); Mean Corpuscular Hgb Conc. 32.4 g/dL (32.0-36.0); Mean Corpuscular Volume 101.2 fL (80.0-100.0); Monocytes # (auto) 0.7 10 ^3/uL (0-1.3); Monocytes % (auto) 9.7 % (0.0-12.0); Neutrophils # (auto) 4.7 10 ^3/uL (1.6-8.6); Neutrophils % (auto) 64.2 % (37.0-80.0); Platelet Count (auto) 189 10^3/uL (140-450); Red Blood Cells 3.19 10^6/uL (4.0-5.20); Red Cell Distribution Width 13.6 % (11.8-14.3); White Blood Cell 7.4 10^3/uL (4.4-10.8)
[2020-11-20 14:54] LABS: INR 1.13 (0.9-1.15); Partial Thromboplastin Time 26.5 sec (23.0-31.2)
[2020-11-20 14:55] LABS: Albumin 2.4 g/dL (3.4-5.0); Calcium 7.5 mg/dL (8.5-10.1); Magnesium 2.3 mg/dL (1.6-2.6); Potassium 5.5 mmol/L (3.5-5.1)
[2020-11-20 15:02] LABS: BUN/Creatinine Ratio 8.9; Bilirubin, Total 0.5 mg/dL (0.2-1.0); Total Protein 5.8 g/dL (6.4-8.2)
[2020-11-20] MEDS: ATORVASTATIN 20 MG TAB PO SCH (22:21)
[2020-11-21 05:00] VITALS: BP 123/69
[2020-11-21] MEDS: DORZOLAMIDE HCL 2% OPTH(EYE) SOL 10ML LEFTEYE SCH ×2 (06:00→13:33)
[2020-11-21] MEDS: SILDENAFIL CITRATE 20 MG TAB PO SCH ×2 (06:00→13:33)
[2020-11-21] MEDS: FUROSEMIDE 40 MG/4 ML VIAL IV SCH (06:00)
[2020-11-21] MEDS: ACCU-CHEK COMFORT CURVE STRIP VI SCH ×3 (06:49→17:00)
[2020-11-21] MEDS: InsuLIN REG 1unit/0.01ml Soln (100units/ml) SC SCH ×3 (06:51→17:00)
[2020-11-21] MEDS ORDERED: SODIUM CHL 0.9% 1000 ML BAG XX ONE (07:00)
[2020-11-21] MEDS: SEVELAMER 800 MG TAB PO SCH ×3 (08:00→11:41)
[2020-11-21] MEDS: FERROUS SULFATE 325 MG TAB PO SCH ×3 (08:00→11:40)
[2020-11-21 09:00] VITALS: BP 107/69
[2020-11-21] MEDS: PANTOPRAZOLE 40 MG/10 ML VIAL INJ IV SCH (09:34)
[2020-11-21] MEDS: B-COMPLEX W/ C & FOLIC ACID(NEPHROVITE TAB) PO SCH (09:35)
[2020-11-21] MEDS: CHOLECALCIFEROL (VITD3) 2,000 UNIT CAP/TAB PO SCH (09:35)
[2020-11-21] MEDS ORDERED: dilTIAZem 120MG ER CAP PO SCH ×2 (10:00→10:30)
[2020-11-21] MEDS ORDERED: ISOSORBIDE MONONITRATE ER 60 MG TAB PO SCH (10:00)
[2020-11-21] MEDS ORDERED: LISINOPRIL 20 MG TAB PO SCH (10:00)
[2020-11-21 13:00] VITALS: BP 144/84
[2020-11-21 17:00] VITALS: BP 123/91
== END 2020-11-21 17:14 | disposition home or self-care (01) | DRG 432 ==
LOC: ER 09:25 → TELE 09:26 → TELE-EAST 11-20 05:19 → TELE-WESTW 11-21 16:15
PROVIDERS: ADMIT Hospitalist; ATTEND Internal Medicine
PROC: 0W9G3ZZ Drainage of Peritoneal Cavity, Percutaneous Approach (ICD-10-PCS; principal; 2020-11-20)
PROC: 5A1D70Z Performance of Urinary Filtration, Intermittent, Less than 6 Hours Per Day (ICD-10-PCS; 2020-11-20)
PROC: 5A1D70Z Performance of Urinary Filtration, Intermittent, Less than 6 Hours Per Day (ICD-10-PCS; 2020-11-21)
DX: K74.60 Unspecified cirrhosis of liver (principal); N18.6 End stage renal disease; I50.43 Acute on chronic combined systolic (congestive) and diastolic (congestive) heart failure; I21.A1 Myocardial infarction type 2; G93.41 Metabolic encephalopathy; I13.2 Hypertensive heart and chronic kidney disease with heart failure and with stage 5 chronic kidney disease, or end stage renal disease; R18.8 Other ascites; I31.3 Pericardial effusion (noninflammatory); I16.9 Hypertensive crisis, unspecified; I48.19 Other persistent atrial fibrillation; E44.0 Moderate protein-calorie malnutrition; Z99.2 Dependence on renal dialysis; H54.8 Legal blindness, as defined in USA; I50.82 Biventricular heart failure; K29.70 Gastritis, unspecified, without bleeding; E78.5 Hyperlipidemia, unspecified; H40.9 Unspecified glaucoma; I27.20 Pulmonary hypertension, unspecified; E87.5 Hyperkalemia; Z20.822 Contact with and (suspected) exposure to COVID-19; E55.9 Vitamin D deficiency, unspecified; M10.9 Gout, unspecified; D63.8 Anemia in other chronic diseases classified elsewhere; E11.40 Type 2 diabetes mellitus with diabetic neuropathy, unspecified; F01.50 Vascular dementia, unspecified severity, without behavioral disturbance, psychotic disturbance, mood disturbance, and anxiety; I07.1 Rheumatic tricuspid insufficiency; I25.10 Atherosclerotic heart disease of native coronary artery without angina pectoris; Z79.4 Long term (current) use of insulin; Z82.3 Family history of stroke; Z82.49 Family history of ischemic heart disease and other diseases of the circulatory system; Z83.3 Family history of diabetes mellitus; Z90.49 Acquired absence of other specified parts of digestive tract; Z95.5 Presence of coronary angioplasty implant and graft; Z86.73 Personal history of transient ischemic attack (TIA), and cerebral infarction without residual deficits; Z68.20 Body mass index [BMI] 20.0-20.9, adult; Z86.16 Personal history of COVID-19; E11.22 Type 2 diabetes mellitus with diabetic chronic kidney disease
CPT/HCPCS: 10022; 36415; 71045; 74176; 76942; 80053; 80061; 82140; 82306; 82962; 83036; 83605; 83690; 83735; 83880; 83970; 84100; 84443; 84484; 85025; 85610; 85730; 86803; 87040; 87081; 87340; 87426; 90935; 93005; 93306; 96361; 96365; 96375; 99291; C9113; G0378; J0696; J1815; J2405; P9047

== ENCOUNTER → 2020-12-11 | Outpatient (CLI) | payer MEDICARE, MEDICAID ==
[~2020-12-11] MED LIST changes: -B-COTAB10 PO; -ERGO1CAP23 PO; +LISI-646 PO; +MAGN250T13 PO; -METO1TAB77 PO; +RIBO50TA5 PO; +TRAZ100T3 PO; -ZOLP10TA6 PO
[2020-12-11 11:50] LABS: Basophils # (auto) 0.1 10 ^3/uL (0-0.2); Basophils % (auto) 1.5 % (0.0-2.0); Eosinophils % (auto) 13.2 % (0.0-7.0); Hematocrit 34.9 % (36.0-46.0); Hemoglobin 11.6 g/dL (12.2-16.2); Lymphocytes # (auto) 0.5 10 ^3/uL (0.4-5.4); Lymphocytes % (auto) 7.3 % (10.0-50.0); Mean Corpuscular Hemoglobin 33.4 pg (28.0-32.0); Mean Corpuscular Hgb Conc. 33.2 g/dL (32.0-36.0); Mean Corpuscular Volume 100.5 fL (80.0-100.0); Monocytes # (auto) 0.4 10 ^3/uL (0-1.3); Monocytes % (auto) 5.8 % (0.0-12.0); Neutrophils # (auto) 5.4 10 ^3/uL (1.6-8.6); Neutrophils % (auto) 72.2 % (37.0-80.0); Nucleated Red Blood Cells % 0.1 %; Platelet Count (auto) 179 10^3/uL (140-450); Red Blood Cells 3.47 10^6/uL (4.0-5.20); Red Cell Distribution Width 14.2 % (11.8-14.3); White Blood Cell 7.4 10^3/uL (4.4-10.8)
[2020-12-11 12:05] LABS: INR 1.06 (0.9-1.15); Partial Thromboplastin Time 26.1 sec (23.0-31.2)
== END | disposition home or self-care (01) ==
LOC: XYW 11:26
PROVIDERS: ATTEND Internal Medicine
DX: R18.8 Other ascites (principal); I50.9 Heart failure, unspecified; F32.9 Major depressive disorder, single episode, unspecified; F41.9 Anxiety disorder, unspecified; F99 Mental disorder, not otherwise specified; I25.118 Atherosclerotic heart disease of native coronary artery with other forms of angina pectoris; Z98.890 Other specified postprocedural states; Z95.5 Presence of coronary angioplasty implant and graft; Z79.899 Other long term (current) drug therapy
CPT/HCPCS: 36415; 49083; 76700; 85025; 85610; 85730; C1729; 10022; 76942

== ENCOUNTER → 2020-12-23 | Outpatient (CLI) | payer MEDICARE, MEDICAID | END | disposition home or self-care (01) | LOC: Rad HDHVI 08:11 | PROVIDERS: ATTEND Internal Medicine | DX: I08.8 Other rheumatic multiple valve diseases (principal); I11.0 Hypertensive heart disease with heart failure; I50.43 Acute on chronic combined systolic (congestive) and diastolic (congestive) heart failure; I31.3 Pericardial effusion (noninflammatory) | CPT/HCPCS: 93306 ==

== ENCOUNTER → 2020-12-25 | Outpatient (CLI) | payer MEDICARE, MEDICAID ==
[2020-12-25 17:28] LABS: Basophils # (auto) 0.1 10 ^3/uL (0-0.2); Basophils % (auto) 1.2 % (0.0-2.0); Eosinophils # (auto) 0.7 10 ^3/uL (0-0.8); Eosinophils % (auto) 9.9 % (0.0-7.0); Lymphocytes # (auto) 0.5 10 ^3/uL (0.4-5.4); Lymphocytes % (auto) 6.7 % (10.0-50.0); Mean Corpuscular Hemoglobin 33.4 pg (28.0-32.0); Mean Corpuscular Hgb Conc. 33.3 g/dL (32.0-36.0); Mean Corpuscular Volume 100.3 fL (80.0-100.0); Monocytes # (auto) 0.6 10 ^3/uL (0-1.3); Monocytes % (auto) 7.9 % (0.0-12.0); Neutrophils # (auto) 5.5 10 ^3/uL (1.6-8.6); Neutrophils % (auto) 74.3 % (37.0-80.0); Nucleated Red Blood Cells % 0.1 %; Platelet Count (auto) 176 10^3/uL (140-450); Red Blood Cells 3.29 10^6/uL (4.0-5.20); Red Cell Distribution Width 14.1 % (11.8-14.3); White Blood Cell 7.4 10^3/uL (4.4-10.8)
[2020-12-25 17:47] LABS: BUN/Creatinine Ratio 14.2; Calcium 7.8 mg/dL (8.5-10.1); Potassium 4.4 mmol/L (3.5-5.1)
[2020-12-25 18:11] LABS: INR 1.06 (0.9-1.15); Partial Thromboplastin Time 25.9 sec (23.0-31.2)
== END | disposition home or self-care (01) ==
LOC: LAB 16:56
PROVIDERS: ATTEND Internal Medicine
DX: Z01.812 Encounter for preprocedural laboratory examination (principal); I50.43 Acute on chronic combined systolic (congestive) and diastolic (congestive) heart failure
CPT/HCPCS: 36415; 80048; 85025; 85610; 85730

== ENCOUNTER → 2020-12-26 | Outpatient (CLI) | payer MEDICARE, MEDICAID | END | disposition home or self-care (01) | LOC: US 10:51 | PROVIDERS: ATTEND Internal Medicine | DX: R18.8 Other ascites (principal); I50.9 Heart failure, unspecified; F32.9 Major depressive disorder, single episode, unspecified; F41.9 Anxiety disorder, unspecified; F99 Mental disorder, not otherwise specified; I25.118 Atherosclerotic heart disease of native coronary artery with other forms of angina pectoris; Z98.890 Other specified postprocedural states; Z79.899 Other long term (current) drug therapy; Z95.5 Presence of coronary angioplasty implant and graft | CPT/HCPCS: 49083; C1729; J2001; 10022; 76700; 76942 ==

== ENCOUNTER → 2021-02-05 | Outpatient (CLI) | payer MEDICARE, MEDICAID ==
[~2021-02-05] MED LIST changes: -AMIT75TA2 PO; +AMIT75TA62 PO; +ATOR20TA PO; -ATOR20TA50 PO; -BENZ100C97 PO; +BRIM0.159 OP; +CARV6.25 PO; -HYDR-4296 PO; +HYDR25TA87 PO; +INS7030I SC; -LISI-646 PO; +LISI20TA28 PO; -RIBO50TA5 PO; +SILD20TA12 PO; -SILD20TA2 PO
== END | disposition home or self-care (01) ==
LOC: Rad HDHVI 09:05
PROVIDERS: ATTEND Internal Medicine
DX: I07.1 Rheumatic tricuspid insufficiency (principal); I50.42 Chronic combined systolic (congestive) and diastolic (congestive) heart failure; I11.0 Hypertensive heart disease with heart failure
CPT/HCPCS: 93306

== ENCOUNTER 2021-02-10 09:36 | Inpatient (IN) | payer MEDICARE, MEDICAID ==
[~2021-02-10] VITALS: Ht 162.6 cm; Wt 59.6 kg
[2021-02-10 10:16] LABS: Hematocrit 32.5 % (36.0-46.0); Hemoglobin 11.2 g/dL (12.2-16.2); Mean Corpuscular Hemoglobin 33.6 pg (28.0-32.0); Mean Corpuscular Hgb Conc. 34.3 g/dL (32.0-36.0); Mean Corpuscular Volume 97.8 fL (80.0-100.0); Platelet Count (auto) 169 10^3/uL (140-450); Red Blood Cells 3.33 10^6/uL (4.0-5.20); Red Cell Distribution Width 13.3 % (11.8-14.3); White Blood Cell 5.5 10^3/uL (4.4-10.8)
[2021-02-10 10:23] LABS: Band Neutrophils % (manual) 0; Basophils % (manual) 0 (0.0-2.0); Blast Cells 0; Metamyelocytes % 0; Myelocytes % 0; Promyelocytes % 0; Reactive Lymphocytes 0
[2021-02-10 10:26] LABS: INR 1.1 (0.9-1.15); Partial Thromboplastin Time 26.4 sec (23.0-31.2)
[2021-02-10 10:28] LABS: Albumin 2.7 g/dL (3.4-5.0); Calcium 7.8 mg/dL (8.5-10.1); Potassium 4.4 mmol/L (3.5-5.1)
[2021-02-10 10:33] LABS: BUN/Creatinine Ratio 12.2; Bilirubin, Total 0.6 mg/dL (0.2-1.0); Total Protein 6.9 g/dL (6.4-8.2)
[2021-02-10 11:46] LABS: Eosinophils % (manual) 15 (0-7); Lymphocytes % (manual) 13 (10.0-50.0); Monocytes % (manual) 5 (0-12)
[2021-02-10] MEDS ORDERED: ACETAMINOPHEN 500 MG TAB PO PRN (13:15)
[2021-02-10] MEDS ORDERED: MORPHINE SULF INJ 2 MG/ML SYRINGE 1ML IV PRN ×2 (13:15)
[2021-02-10] MEDS ORDERED: hydrALAZINE HCL 20 MG/ML VL IV PRN (13:15)
[2021-02-10] MEDS ORDERED: NITROGLYCERIN 0.4 MG SL TAB SL PRN (13:15)
[2021-02-10] MEDS ORDERED: DEXTROSE (50%) 50ML SYRG IV PRN (13:15)
[2021-02-10] MEDS ORDERED: ONDANSETRON HCL 4 MG/2 ML VIAL IV PRN (13:15)
[2021-02-10] MEDS: hydrALAZINE HCL 25 MG TAB PO SCH ×2 (15:29→23:46)
[2021-02-10] MEDS: SILDENAFIL CITRATE 20 MG TAB PO SCH ×2 (15:29→22:02)
[2021-02-10] MEDS: InsuLIN REG 1unit/0.01ml Soln (100units/ml) SC SCH ×2 (17:55→22:09)
[2021-02-10] MEDS: ACCU-CHEK COMFORT CURVE STRIP VI SCH ×2 (17:59→22:03)
[2021-02-10] MEDS: SEVELAMER 800 MG TAB PO SCH (19:04)
[2021-02-10 20:40] VITALS: BP 105/63
[2021-02-10 22:00] VITALS: BP 105/63
[2021-02-10] MEDS: traZODone HCL 50 MG TAB PO SCH (22:02)
[2021-02-10] MEDS: CARVEDILOL 3.125 MG TAB PO SCH (22:03)
[2021-02-10] MEDS: ATORVASTATIN 20 MG TAB PO SCH (22:03)
[2021-02-10] MEDS: HYDROcodone-ACET 5/325MG TAB PO PRN (22:05)
[2021-02-11 05:00] VITALS: BP 95/60
[2021-02-11] MEDS: hydrALAZINE HCL 25 MG TAB PO SCH ×3 (05:53→21:40)
[2021-02-11] MEDS: SILDENAFIL CITRATE 20 MG TAB PO SCH ×3 (05:53→21:41)
[2021-02-11] MEDS: ACCU-CHEK COMFORT CURVE STRIP VI SCH ×4 (06:00→21:53)
[2021-02-11] MEDS: InsuLIN REG 1unit/0.01ml Soln (100units/ml) SC SCH ×4 (06:00→21:54)
[2021-02-11 06:55] LABS: INR 1.13 (0.9-1.15)
[2021-02-11 07:00] LABS: Potassium 4.9 mmol/L (3.5-5.1)
[2021-02-11] MEDS ORDERED: SODIUM CHL 0.9% 1000 ML BAG XX ONE (07:00)
[2021-02-11 07:07] LABS: BUN/Creatinine Ratio 12.7
[2021-02-11] MEDS: SEVELAMER 800 MG TAB PO SCH ×3 (08:00→18:48)
[2021-02-11 08:52] LABS: Hematocrit 29.3 % (36.0-46.0); Mean Corpuscular Hemoglobin 33.1 pg (28.0-32.0); Mean Corpuscular Hgb Conc. 34.2 g/dL (32.0-36.0); Mean Corpuscular Volume 96.5 fL (80.0-100.0); Platelet Count (auto) 125 10^3/uL (140-450); Red Blood Cells 3.03 10^6/uL (4.0-5.20); Red Cell Distribution Width 13.1 % (11.8-14.3); White Blood Cell 4.3 10^3/uL (4.4-10.8)
[2021-02-11 08:58] LABS: Band Neutrophils % (manual) 0; Blast Cells 0; Metamyelocytes % 0; Myelocytes % 0; Promyelocytes % 0; Reactive Lymphocytes 0
[2021-02-11 09:00] VITALS: BP 108/70
[2021-02-11 09:40] LABS: Basophils % (manual) 1 (0.0-2.0); Eosinophils % (manual) 23 (0-7); Lymphocytes % (manual) 17 (10.0-50.0); Monocytes % (manual) 7 (0-12)
[2021-02-11] MEDS: CARVEDILOL 3.125 MG TAB PO SCH ×2 (10:51→21:39)
[2021-02-11] MEDS: LISINOPRIL 20 MG TAB PO SCH (10:52)
[2021-02-11] MEDS ORDERED: SODIUM CHL 0.9% 0 ML ONE (14:02)
[2021-02-11] MEDS ORDERED: LIDOCAINE 2%HCL (LOCAL ANESTH.) INJ 20ML MDV ONE (14:02)
[2021-02-11] MEDS ORDERED: fentaNYL CITRATE 100 MCG/2 ML VL ONE (14:02)
[2021-02-11] MEDS ORDERED: ANGIOMAX 250 MG VIAL IV ONE (14:02)
[2021-02-11] MEDS ORDERED: MIDAZOLAM HCL 1MG/1ML-2 ML VIAL ONE (14:02)
[2021-02-11] MEDS ORDERED: ACETAMINOPHEN 500 MG TAB PO PRN (15:30)
[2021-02-11 17:05] VITALS: BP 100/66
[2021-02-11] MEDS: HYDROcodone-ACET 5/325MG TAB PO PRN (19:02)
[2021-02-11] MEDS: ATORVASTATIN 20 MG TAB PO SCH (21:38)
[2021-02-11] MEDS: traZODone HCL 50 MG TAB PO SCH (21:39)
[2021-02-11 22:00] VITALS: BP 101/65
[2021-02-12 05:00] VITALS: BP 84/44
[2021-02-12] MEDS ORDERED: SODIUM CHLORIDE 0.9% 500 ML IV ONE (05:00)
[2021-02-12] MEDS: SILDENAFIL CITRATE 20 MG TAB PO SCH ×2 (05:29→14:00)
[2021-02-12] MEDS: hydrALAZINE HCL 25 MG TAB PO SCH ×2 (05:30→14:00)
[2021-02-12] MEDS: ACCU-CHEK COMFORT CURVE STRIP VI SCH ×2 (06:28→11:30)
[2021-02-12 06:29] VITALS: BP 110/73
[2021-02-12] MEDS: InsuLIN REG 1unit/0.01ml Soln (100units/ml) SC SCH ×2 (06:29→11:30)
[2021-02-12 06:52] LABS: Hematocrit 31.9 % (36.0-46.0); Mean Corpuscular Hemoglobin 33.7 pg (28.0-32.0); Mean Corpuscular Hgb Conc. 34.5 g/dL (32.0-36.0); Mean Corpuscular Volume 97.6 fL (80.0-100.0); Platelet Count (auto) 128 10^3/uL (140-450); Potassium 4.3 mmol/L (3.5-5.1); Red Blood Cells 3.27 10^6/uL (4.0-5.20); White Blood Cell 5.5 10^3/uL (4.4-10.8)
[2021-02-12 07:00] LABS: Albumin 2.1 g/dL (3.4-5.0); BUN/Creatinine Ratio 8.8; Bilirubin, Total 0.6 mg/dL (0.2-1.0); Calcium 7.5 mg/dL (8.5-10.1); Magnesium 2.5 mg/dL (1.6-2.6); Total Protein 5.5 g/dL (6.4-8.2)
[2021-02-12 07:04] LABS: Band Neutrophils % (manual) 0; Basophils % (manual) 0 (0.0-2.0); Blast Cells 0; Metamyelocytes % 0; Myelocytes % 0; Promyelocytes % 0; Reactive Lymphocytes 0
[2021-02-12 08:10] LABS: Eosinophils % (manual) 26 (0-7); Lymphocytes % (manual) 19 (10.0-50.0); Monocytes % (manual) 6 (0-12)
[2021-02-12] MEDS: SEVELAMER 800 MG TAB PO SCH ×2 (08:18→12:00)
[2021-02-12 09:00] VITALS: BP 108/61
[2021-02-12] MEDS: CARVEDILOL 3.125 MG TAB PO SCH (09:36)
[2021-02-12] MEDS: LISINOPRIL 20 MG TAB PO SCH (09:37)
[2021-02-12 12:41] VITALS: BP 118/73
[2021-02-12 15:54] VITALS: BP 101/58
[2021-02-12 16:34] VITALS: BP 114/70
[2021-02-13] MEDS ORDERED: SODIUM CHL 0.9% 1000 ML BAG XX ONE (07:00)
== END 2021-02-12 17:40 | disposition home health service (06) | DRG 286 ==
LOC: ER 09:36 → TELE 13:05 → TELE-EAST 20:20
PROVIDERS: ADMIT Nurse Practitioner Acute Care; ATTEND Internal Medicine
PROC: 0W9G3ZZ Drainage of Peritoneal Cavity, Percutaneous Approach (ICD-10-PCS; principal; 2021-02-10)
PROC: B2111ZZ Fluoroscopy of Multiple Coronary Arteries using Low Osmolar Contrast (ICD-10-PCS; 2021-02-11)
PROC: 4A023N8 Measurement of Cardiac Sampling and Pressure, Bilateral, Percutaneous Approach (ICD-10-PCS; 2021-02-11)
PROC: B2151ZZ Fluoroscopy of Left Heart using Low Osmolar Contrast (ICD-10-PCS; 2021-02-11)
DX: I13.2 Hypertensive heart and chronic kidney disease with heart failure and with stage 5 chronic kidney disease, or end stage renal disease (principal); I50.23 Acute on chronic systolic (congestive) heart failure; N18.6 End stage renal disease; E44.0 Moderate protein-calorie malnutrition; R18.8 Other ascites; I31.3 Pericardial effusion (noninflammatory); I42.5 Other restrictive cardiomyopathy; K72.90 Hepatic failure, unspecified without coma; K74.60 Unspecified cirrhosis of liver; D63.1 Anemia in chronic kidney disease; I25.10 Atherosclerotic heart disease of native coronary artery without angina pectoris; I27.20 Pulmonary hypertension, unspecified; E55.9 Vitamin D deficiency, unspecified; Z68.22 Body mass index [BMI] 22.0-22.9, adult; E11.22 Type 2 diabetes mellitus with diabetic chronic kidney disease; M10.9 Gout, unspecified; I36.1 Nonrheumatic tricuspid (valve) insufficiency; Z83.3 Family history of diabetes mellitus; Z82.49 Family history of ischemic heart disease and other diseases of the circulatory system; Z86.73 Personal history of transient ischemic attack (TIA), and cerebral infarction without residual deficits
CPT/HCPCS: 36415; 49083; 71045; 76700; 76942; 80048; 80053; 82962; 83036; 83735; 85007; 85027; 85610; 85730; 87081; 87426; 93005; 93306; 93460; 99152; 99153; C1751; G0378; J1815; J2250

== ENCOUNTER → 2021-02-20 | Outpatient (CLI) | payer MEDICARE, MEDICAID | END | disposition home or self-care (01) | LOC: Rad HDHVI 10:17 | PROVIDERS: ATTEND Internal Medicine | DX: I67.82 Cerebral ischemia (principal); I70.90 Unspecified atherosclerosis; R51.9 Headache, unspecified | CPT/HCPCS: 70450 ==

== ENCOUNTER 2021-03-12 09:29 | Emergency (ER) | payer MEDICARE, MEDICAID ==
[~2021-03-12] VITALS: Ht 154.9 cm; Wt 68.0 kg
[2021-03-12 10:55] LABS: Hematocrit 33.1 % (36.0-46.0); Hemoglobin 11.2 g/dL (12.2-16.2); Mean Corpuscular Hemoglobin 32.7 pg (28.0-32.0); Mean Corpuscular Hgb Conc. 33.8 g/dL (32.0-36.0); Mean Corpuscular Volume 96.7 fL (80.0-100.0); Red Blood Cells 3.43 10^6/uL (4.0-5.20); Red Cell Distribution Width 13.4 % (11.8-14.3); White Blood Cell 7.5 10^3/uL (4.4-10.8)
[2021-03-12 10:57] LABS: Basophils % (manual) 0 (0.0-2.0); Blast Cells 0; Metamyelocytes % 0; Myelocytes % 0; Promyelocytes % 0; Reactive Lymphocytes 0
[2021-03-12 11:11] LABS: INR 1.18 (0.9-1.15); Partial Thromboplastin Time 23.4 sec (23.0-31.2)
[2021-03-12 11:12] LABS: Albumin 2.7 g/dL (3.4-5.0); Magnesium 2.4 mg/dL (1.6-2.6); Potassium 4.9 mmol/L (3.5-5.1)
[2021-03-12 11:18] LABS: BUN/Creatinine Ratio 11.7; Bilirubin, Total 0.6 mg/dL (0.2-1.0); Total Protein 7.1 g/dL (6.4-8.2)
[2021-03-12 11:48] LABS: Band Neutrophils % (manual) 2; Eosinophils % (manual) 26 (0-7); Lymphocytes % (manual) 14 (10.0-50.0); Monocytes % (manual) 10 (0-12)
[2021-03-12 18:25] VITALS: BP 115/58
== END 2021-03-12 18:42 | disposition home or self-care (01) ==
LOC: ER 09:29
DX: R14.0 Abdominal distension (gaseous) (principal); E11.22 Type 2 diabetes mellitus with diabetic chronic kidney disease; I13.2 Hypertensive heart and chronic kidney disease with heart failure and with stage 5 chronic kidney disease, or end stage renal disease; I50.9 Heart failure, unspecified; N18.6 End stage renal disease; E78.5 Hyperlipidemia, unspecified; Z86.73 Personal history of transient ischemic attack (TIA), and cerebral infarction without residual deficits; Z20.822 Contact with and (suspected) exposure to COVID-19
CPT/HCPCS: 36415; 49083; 80053; 82962; 83735; 84484; 85007; 85027; 85610; 85730; 87426; 93005; 99285; C1729; 76942

== ENCOUNTER 2021-03-24 09:12 | Emergency (ER) | payer MEDICARE, MEDICAID ==
[~2021-03-24] VITALS: Ht 157.5 cm; Wt 68.9 kg
[2021-03-24 10:08] LABS: Hematocrit 35.1 % (36.0-46.0); Hemoglobin 11.8 g/dL (12.2-16.2); Mean Corpuscular Hemoglobin 32.5 pg (28.0-32.0); Mean Corpuscular Hgb Conc. 33.5 g/dL (32.0-36.0); Red Blood Cells 3.62 10^6/uL (4.0-5.20); Red Cell Distribution Width 13.9 % (11.8-14.3); White Blood Cell 7.7 10^3/uL (4.4-10.8)
[2021-03-24 10:13] LABS: Albumin 2.7 g/dL (3.4-5.0); Calcium 7.8 mg/dL (8.5-10.1)
[2021-03-24 10:15] LABS: INR 1.06 (0.9-1.15); Partial Thromboplastin Time 24.5 sec (23.0-31.2)
[2021-03-24 10:18] LABS: Basophils % (manual) 0 (0.0-2.0); Blast Cells 0; Metamyelocytes % 0; Myelocytes % 0; Promyelocytes % 0; Reactive Lymphocytes 0
[2021-03-24 10:20] LABS: BUN/Creatinine Ratio 10.4; Bilirubin, Total 0.6 mg/dL (0.2-1.0); Total Protein 6.6 g/dL (6.4-8.2)
[2021-03-24 11:24] LABS: Band Neutrophils % (manual) 1; Eosinophils % (manual) 11 (0-7); Lymphocytes % (manual) 12 (10.0-50.0); Monocytes % (manual) 2 (0-12)
[2021-03-24 15:59] VITALS: BP 134/57
== END 2021-03-24 16:36 | disposition home or self-care (01) ==
LOC: ER 09:12
DX: R14.0 Abdominal distension (gaseous) (principal); R18.8 Other ascites; E11.22 Type 2 diabetes mellitus with diabetic chronic kidney disease; I13.2 Hypertensive heart and chronic kidney disease with heart failure and with stage 5 chronic kidney disease, or end stage renal disease; I50.9 Heart failure, unspecified; N18.6 End stage renal disease; I25.10 Atherosclerotic heart disease of native coronary artery without angina pectoris; E78.5 Hyperlipidemia, unspecified; M10.9 Gout, unspecified; Z86.2 Personal history of diseases of the blood and blood-forming organs and certain disorders involving the immune mechanism; Z90.49 Acquired absence of other specified parts of digestive tract; Z79.4 Long term (current) use of insulin; Z79.899 Other long term (current) drug therapy
CPT/HCPCS: 36415; 76700; 76942; 80053; 82962; 84484; 85007; 85027; 85049; 85610; 85730; 93005; 99285; C1729; 49082

== ENCOUNTER → 2021-04-02 | Outpatient (CLI) | payer MEDICARE, MEDICAID ==
[2021-04-02 15:33] LABS: Hematocrit 34.6 % (36.0-46.0); Hemoglobin 11.7 g/dL (12.2-16.2); Mean Corpuscular Hemoglobin 33.1 pg (28.0-32.0); Mean Corpuscular Hgb Conc. 33.8 g/dL (32.0-36.0); Mean Corpuscular Volume 97.9 fL (80.0-100.0); Platelet Count (auto) 114 10^3/uL (140-450); Red Blood Cells 3.54 10^6/uL (4.0-5.20); Red Cell Distribution Width 13.7 % (11.8-14.3); White Blood Cell 7.3 10^3/uL (4.4-10.8)
[2021-04-02 15:40] LABS: Band Neutrophils % (manual) 0; Basophils % (manual) 0 (0.0-2.0); Blast Cells 0; Metamyelocytes % 0; Myelocytes % 0; Promyelocytes % 0; Reactive Lymphocytes 0
[2021-04-02 15:50] LABS: Potassium 5.1 mmol/L (3.5-5.1)
[2021-04-02 15:57] LABS: Albumin 2.5 g/dL (3.4-5.0); BUN/Creatinine Ratio 8.9; Bilirubin, Total 0.6 mg/dL (0.2-1.0); Calcium 7.9 mg/dL (8.5-10.1); Total Protein 6.2 g/dL (6.4-8.2)
[2021-04-02 17:26] LABS: Eosinophils % (manual) 23 (0-7); Lymphocytes % (manual) 6 (10.0-50.0); Monocytes % (manual) 5 (0-12)
== END | disposition home or self-care (01) ==
LOC: CHF HDHVI 11:39
PROVIDERS: ATTEND Internal Medicine
DX: I10 Essential (primary) hypertension (principal); D64.9 Anemia, unspecified
CPT/HCPCS: 36415; 80053; 85007; 85027; 85049

== ENCOUNTER 2021-04-07 09:25 | Inpatient (IN) | payer MEDICARE, MEDICAID ==
[~2021-04-07] VITALS: Ht 157.5 cm; Wt 66.6 kg
[2021-04-07 10:16] LABS: Hematocrit 36.1 % (36.0-46.0); Hemoglobin 11.9 g/dL (12.2-16.2); Mean Corpuscular Hemoglobin 31.8 pg (28.0-32.0); Mean Corpuscular Hgb Conc. 32.9 g/dL (32.0-36.0); Mean Corpuscular Volume 96.6 fL (80.0-100.0); Red Blood Cells 3.74 10^6/uL (4.0-5.20); Red Cell Distribution Width 14.3 % (11.8-14.3); White Blood Cell 6.9 10^3/uL (4.4-10.8)
[2021-04-07 10:35] LABS: Albumin 2.3 g/dL (3.4-5.0); Calcium 7.3 mg/dL (8.5-10.1)
[2021-04-07 10:38] LABS: BUN/Creatinine Ratio 10.1; Bilirubin, Total 0.6 mg/dL (0.2-1.0)
[2021-04-07 11:02] LABS: Band Neutrophils % (manual) 0; Basophils % (manual) 0 (0.0-2.0); Blast Cells 0; Metamyelocytes % 0; Myelocytes % 0; Promyelocytes % 0; Reactive Lymphocytes 0
[2021-04-07 11:04] LABS: Eosinophils % (manual) 21 (0-7); Lymphocytes % (manual) 16 (10.0-50.0); Monocytes % (manual) 5 (0-12)
[2021-04-07] MEDS ORDERED: MORPHINE SULFATE INJECTION 2 MG/ML SYRG IV PRN ×2 (12:15)
[2021-04-07] MEDS ORDERED: ACETAMINOPHEN 500 MG TAB PO PRN (12:15)
[2021-04-07] MEDS ORDERED: HYDROcodone-ACET 5/325MG TAB PO PRN (12:15)
[2021-04-07] MEDS ORDERED: NITROGLYCERIN 0.4 MG SL TAB SL PRN (12:15)
[2021-04-07] MEDS ORDERED: ONDANSETRON HCL 4 MG/2 ML VIAL IV PRN (12:15)
[2021-04-07] MEDS ORDERED: DEXTROSE (50%) 50ML SYRG IV PRN (12:15)
[2021-04-07 14:02] LABS: INR 1.18 (0.9-1.15); Partial Thromboplastin Time 27.8 sec (23.0-31.2)
[2021-04-07] MEDS: InsuLIN REG 1unit/0.01ml Soln (100units/ml) SC SCH ×2 (17:00→21:38)
[2021-04-07 17:06] VITALS: BP 108/64
[2021-04-07] MEDS: SEVELAMER 800 MG TAB PO SCH (17:43)
[2021-04-07] MEDS: ACCU-CHEK COMFORT CURVE STRIP VI SCH ×2 (17:43→21:37)
[2021-04-07 17:48] VITALS: BP 109/68
[2021-04-07] MEDS ORDERED: SEVELAMER CARBONATE 1600 MG PO SCH (18:00)
[2021-04-07 22:00] VITALS: BP 117/66
[2021-04-07] MEDS ORDERED: traZODone HCL 50 MG TAB PO SCH (22:00)
[2021-04-07] MEDS ORDERED: PATIENTS OWN MEDICATION (Trazodone Hcl 100 MG) PO SCH (22:00)
[2021-04-07] MEDS ORDERED: ATORVASTATIN 20 MG TAB PO SCH (22:00)
[2021-04-08 05:00] VITALS: BP 121/75
[2021-04-08 06:15] LABS: INR 1.13 (0.9-1.15); Partial Thromboplastin Time 24.5 sec (23.0-31.2)
[2021-04-08] MEDS: ACCU-CHEK COMFORT CURVE STRIP VI SCH ×2 (06:20→16:45)
[2021-04-08] MEDS: InsuLIN REG 1unit/0.01ml Soln (100units/ml) SC SCH ×2 (06:20→11:30)
[2021-04-08 08:48] VITALS: BP 126/73
[2021-04-08] MEDS ORDERED: PATIENTS OWN MEDICATION (Ferrous Sulfate 325 MG) PO SCH (10:00)
[2021-04-08] MEDS ORDERED: FERROUS SULFATE 325mg EC TAB PO SCH (10:00)
[2021-04-08 11:41] VITALS: BP 126/73
[2021-04-08 13:05] VITALS: BP 130/81
[2021-04-08] MEDS: SEVELAMER 800 MG TAB PO SCH ×2 (16:45→16:47)
== END 2021-04-08 16:20 | disposition home or self-care (01) | DRG 432 ==
LOC: ER 09:25 → TELE 12:04 → TELE-WESTW 16:10
PROVIDERS: ADMIT Nurse Practitioner Acute Care; ATTEND Internal Medicine Nephrology
PROC: 0W9G3ZZ Drainage of Peritoneal Cavity, Percutaneous Approach (ICD-10-PCS; principal; 2021-04-07)
DX: K74.60 Unspecified cirrhosis of liver (principal); N18.6 End stage renal disease; I50.23 Acute on chronic systolic (congestive) heart failure; R18.8 Other ascites; I13.2 Hypertensive heart and chronic kidney disease with heart failure and with stage 5 chronic kidney disease, or end stage renal disease; I25.10 Atherosclerotic heart disease of native coronary artery without angina pectoris; D64.9 Anemia, unspecified; E11.22 Type 2 diabetes mellitus with diabetic chronic kidney disease; E78.5 Hyperlipidemia, unspecified; Z79.01 Long term (current) use of anticoagulants; Z79.4 Long term (current) use of insulin; Z79.899 Other long term (current) drug therapy; Z82.3 Family history of stroke; Z82.49 Family history of ischemic heart disease and other diseases of the circulatory system; Z83.3 Family history of diabetes mellitus; Z86.73 Personal history of transient ischemic attack (TIA), and cerebral infarction without residual deficits; Z95.5 Presence of coronary angioplasty implant and graft; Z99.2 Dependence on renal dialysis; Z20.822 Contact with and (suspected) exposure to COVID-19
CPT/HCPCS: 36415; 49083; 76942; 80053; 82962; 83036; 85007; 85027; 85610; 85730; 87081; 87426; 93005; G0378; J1815

== ENCOUNTER 2021-06-04 10:53 | Inpatient (IN) | payer MEDICARE, MEDICAID ==
[~2021-06-04] VITALS: Ht 162.6 cm; Wt 60.3 kg
[2021-06-04 11:31] LABS: Hemoglobin 11.3 g/dL (12.2-16.2); White Blood Cell 6.7 10^3/uL (4.4-10.8)
[2021-06-04 11:32] LABS: Hematocrit 34.6 % (36.0-46.0); Mean Corpuscular Hemoglobin 31.4 pg (28.0-32.0); Mean Corpuscular Hgb Conc. 32.8 g/dL (32.0-36.0); Red Cell Distribution Width 13.6 % (11.8-14.3)
[2021-06-04 11:41] LABS: Band Neutrophils % (manual) 0; Basophils % (manual) 0 (0.0-2.0); Blast Cells 0; Metamyelocytes % 0; Myelocytes % 0; Promyelocytes % 0; Reactive Lymphocytes 0
[2021-06-04 11:59] LABS: Albumin 2.7 g/dL (3.4-5.0); Calcium 8.3 mg/dL (8.5-10.1); Potassium 3.8 mmol/L (3.5-5.1)
[2021-06-04 12:02] LABS: BUN/Creatinine Ratio 7.2; Bilirubin, Total 0.6 mg/dL (0.2-1.0); Total Protein 7.1 g/dL (6.4-8.2)
[2021-06-04 12:51] LABS: Eosinophils % (manual) 30 (0-7); Lymphocytes % (manual) 16 (10.0-50.0); Monocytes % (manual) 7 (0-12)
[2021-06-04] MEDS ORDERED: TRAM50TA2 PO (15:52)
[2021-06-04] MEDS ORDERED: [UNRECOGNIZED DRUG - CODE] PO (15:53)
[2021-06-04] MEDS ORDERED: HYDR1TAB97 PO (15:54)
[2021-06-04] MEDS ORDERED: BRIM0.2S17 EACHEYE (15:55)
[2021-06-04] MEDS ORDERED: CLON0.1T PO (15:58)
[2021-06-04] MEDS ORDERED: LACT10SO3 PO (15:58)
[2021-06-04] MEDS ORDERED: HYDR-3682 PO (15:58)
[2021-06-04] MEDS ORDERED: ACE3T PO (15:58)
[2021-06-04] MEDS ORDERED: MORPHINE SULFATE INJECTION 2 MG/ML SYRG IV PRN ×3 (16:15→18:45)
[2021-06-04] MEDS ORDERED: NITROGLYCERIN 0.4 MG SL TAB SL PRN ×2 (16:15→18:45)
[2021-06-04] MEDS ORDERED: DEXTROSE (50%) 50ML SYRG IV PRN (16:15)
[2021-06-04] MEDS: InsuLIN REG 1unit/0.01ml Soln (100units/ml) SC SCH ×2 (17:00→22:00)
[2021-06-04] MEDS: ACCU-CHEK COMFORT CURVE STRIP VI SCH ×2 (17:00→22:00)
[2021-06-04] MEDS ORDERED: METOCLOPRAMIDE HCL 5MG/ml INJ 2ml VIAL IV PRN (18:45)
[2021-06-04] MEDS ORDERED: LORazepam 0.5 MG TAB PO PRN (18:45)
[2021-06-04] MEDS ORDERED: ACETAMINOPHEN 325 MG TAB PO PRN (18:45)
[2021-06-04] MEDS ORDERED: ALUM & MAG HYDROX-SIMETH LIQ(MAALOX) 30 ML PO PRN (18:45)
[2021-06-04] MEDS ORDERED: DOCUSATE SOD 100 MG CAP PO PRN (18:45)
[2021-06-04] MEDS ORDERED: HYDROcodone-ACET 5/325MG TAB PO PRN (18:45)
[2021-06-04 20:01] LABS: INR 1.1 (0.9-1.15)
[2021-06-04] MEDS ORDERED: cefTRIAXone 1GM/50ML D5W 50 ML IV ONE (21:00)
[2021-06-04] MEDS ORDERED: METOPROLOL SUCCINATE XL 50 MG TAB PO ONE (21:00)
[2021-06-04] MEDS: MAGNESIUM OXIDE 400 MG TAB PO SCH (22:00)
[2021-06-04] MEDS: ASCORBIC ACID 500 MG TAB PO SCH (22:00)
[2021-06-04] MEDS: AMITRIPTYLINE HCL 25 MG TAB PO SCH (22:00)
[2021-06-04] MEDS ORDERED: hydrALAZINE HCL 25 MG TAB PO SCH ×2 (22:00→22:14)
[2021-06-04] MEDS ORDERED: FAMOTIDINE (10MG/ML) 2ML VL IV ONE (22:00)
[2021-06-04] MEDS: SILDENAFIL CITRATE 20 MG TAB PO SCH (22:00)
[2021-06-05] MEDS: BRIMONIDINE 0.2% OPTH Soln 5ml EACHEYE SCH ×4 (03:16→22:37)
[2021-06-05] MEDS: SODIUM CHLOR 0.9% PF (SALINE LOCK) 10ML VIAL/SYR IV SCH ×4 (03:17→22:37)
[2021-06-05] MEDS: ATORVASTATIN 20 MG TAB PO SCH ×2 (04:56→22:39)
[2021-06-05] MEDS: SILDENAFIL CITRATE 20 MG TAB PO SCH ×3 (05:58→22:40)
[2021-06-05] MEDS: InsuLIN REG 1unit/0.01ml Soln (100units/ml) SC SCH ×4 (05:59→22:37)
[2021-06-05] MEDS: ACCU-CHEK COMFORT CURVE STRIP VI SCH ×4 (05:59→22:40)
[2021-06-05] MEDS: FERROUS SULFATE 325mg EC TAB PO SCH ×3 (08:24→17:25)
[2021-06-05] MEDS: SEVELAMER 800 MG TAB PO SCH ×3 (08:24→17:25)
[2021-06-05] MEDS: MAGNESIUM OXIDE 400 MG TAB PO SCH (09:30)
[2021-06-05] MEDS: LISINOPRIL 20 MG TAB PO SCH (09:30)
[2021-06-05] MEDS: ASCORBIC ACID 500 MG TAB PO SCH (09:30)
[2021-06-05] MEDS ORDERED: APIXABAN 2.5 MG TAB PO SCH (10:00)
[2021-06-05] MEDS ORDERED: METOPROLOL SUCCINATE XL 50 MG TAB PO ONE (15:00)
[2021-06-05] MEDS ORDERED: cefTRIAXone 1GM/50ML D5W 50 ML IV SCH (21:00)
[2021-06-05 22:00] VITALS: BP 122/73
[2021-06-05] MEDS ORDERED: FAMOTIDINE (10MG/ML) 2ML VL IV SCH (22:00)
[2021-06-05] MEDS ORDERED: METOPROLOL SUCCINATE XL 50 MG TAB PO SCH (22:00)
[2021-06-05] MEDS: AMITRIPTYLINE HCL 25 MG TAB PO SCH (22:37)
[2021-06-05] MEDS: APIXABAN 2.5 MG TAB PO SCH (22:38)
[2021-06-06 05:00] VITALS: BP 113/68
[2021-06-06] MEDS: ACCU-CHEK COMFORT CURVE STRIP VI SCH ×2 (06:35→12:57)
[2021-06-06] MEDS: SODIUM CHLOR 0.9% PF (SALINE LOCK) 10ML VIAL/SYR IV SCH (06:35)
[2021-06-06] MEDS: BRIMONIDINE 0.2% OPTH Soln 5ml EACHEYE SCH (06:36)
[2021-06-06] MEDS: SILDENAFIL CITRATE 20 MG TAB PO SCH (06:36)
[2021-06-06] MEDS: InsuLIN REG 1unit/0.01ml Soln (100units/ml) SC SCH ×2 (06:52→12:34)
[2021-06-06] MEDS: SEVELAMER 800 MG TAB PO SCH ×2 (08:00→12:57)
[2021-06-06] MEDS: FERROUS SULFATE 325mg EC TAB PO SCH ×2 (08:00→12:57)
[2021-06-06] MEDS: APIXABAN 2.5 MG TAB PO SCH (08:55)
[2021-06-06 09:00] VITALS: BP 126/81
[2021-06-06] MEDS: LISINOPRIL 20 MG TAB PO SCH (09:08)
[2021-06-06] MEDS ORDERED: METOPROLOL SUCCINATE XL 50 MG TAB PO SCH (10:00)
[2021-06-06 13:00] VITALS: BP 114/70
[2021-06-06 13:58] VITALS: BP 114/70
[2021-06-06] MEDS ORDERED: DIGOXIN 0.125 MG TAB PO SCH (15:00)
== END 2021-06-06 15:00 | disposition home or self-care (01) | DRG 432 ==
LOC: ER 10:53 → TELE 16:14 → TELE-CENTR 06-05 16:18
PROVIDERS: ADMIT Hospitalist; ATTEND Internal Medicine Nephrology
PROC: 0W9G3ZZ Drainage of Peritoneal Cavity, Percutaneous Approach (ICD-10-PCS; principal; 2021-06-05)
DX: K74.60 Unspecified cirrhosis of liver (principal); N18.6 End stage renal disease; E43 Unspecified severe protein-calorie malnutrition; R18.8 Other ascites; I48.19 Other persistent atrial fibrillation; I16.9 Hypertensive crisis, unspecified; I13.2 Hypertensive heart and chronic kidney disease with heart failure and with stage 5 chronic kidney disease, or end stage renal disease; I50.40 Unspecified combined systolic (congestive) and diastolic (congestive) heart failure; I48.92 Unspecified atrial flutter; I50.82 Biventricular heart failure; K29.70 Gastritis, unspecified, without bleeding; I27.21 Secondary pulmonary arterial hypertension; E11.40 Type 2 diabetes mellitus with diabetic neuropathy, unspecified; E11.51 Type 2 diabetes mellitus with diabetic peripheral angiopathy without gangrene; I25.10 Atherosclerotic heart disease of native coronary artery without angina pectoris; D63.1 Anemia in chronic kidney disease; E11.22 Type 2 diabetes mellitus with diabetic chronic kidney disease; Z20.822 Contact with and (suspected) exposure to COVID-19; F32.9 Major depressive disorder, single episode, unspecified; M10.9 Gout, unspecified; R14.0 Abdominal distension (gaseous); E78.5 Hyperlipidemia, unspecified; H40.9 Unspecified glaucoma; Z99.2 Dependence on renal dialysis; Z82.3 Family history of stroke; Z82.49 Family history of ischemic heart disease and other diseases of the circulatory system; Z79.4 Long term (current) use of insulin; Z83.3 Family history of diabetes mellitus; Z86.16 Personal history of COVID-19; Z86.73 Personal history of transient ischemic attack (TIA), and cerebral infarction without residual deficits; Z87.01 Personal history of pneumonia (recurrent); Z68.22 Body mass index [BMI] 22.0-22.9, adult
CPT/HCPCS: 36415; 76700; 76942; 80053; 80061; 82962; 83036; 84484; 85007; 85027; 85610; 87040; 87081; 87426; 93005; G0378; J0696; J1815; J3490

== ENCOUNTER 2021-06-23 11:19 | Inpatient (IN) | payer MEDICARE, MEDICAID ==
[~2021-06-23] VITALS: Ht 162.6 cm; Wt 65.1 kg
[~2021-06-23 11:19] MED LIST changes: +ACE3T PO; -BRIM0.159 OP; +BRIM0.2S17 EACHEYE; +CLON0.1T PO; -DILT-29 PO; -DORZ2SOL18 EACHEYE; +HYDR-3682 PO; +HYDR1TAB97 PO; +LACT10SO3 PO; +TRAM50TA2 PO; -TRAZ100T3 PO; +[UNRECOGNIZED DRUG - CODE] PO
[2021-06-23 12:06] LABS: Hematocrit 32.4 % (36.0-46.0); Hemoglobin 10.8 g/dL (12.2-16.2); Mean Corpuscular Hemoglobin 31.5 pg (28.0-32.0); Mean Corpuscular Hgb Conc. 33.2 g/dL (32.0-36.0); Mean Corpuscular Volume 94.8 fL (80.0-100.0); Red Blood Cells 3.42 10^6/uL (4.0-5.20); Red Cell Distribution Width 13.9 % (11.8-14.3); White Blood Cell 7.6 10^3/uL (4.4-10.8)
[2021-06-23 12:19] LABS: Basophils % (manual) 0 (0.0-2.0); Blast Cells 0; Metamyelocytes % 0; Myelocytes % 0; Promyelocytes % 0; Reactive Lymphocytes 0
[2021-06-23 12:23] LABS: INR 1.13 (0.9-1.15); Partial Thromboplastin Time 24.5 sec (23.6-33.0)
[2021-06-23 12:27] LABS: Albumin 2.5 g/dL (3.4-5.0); BUN/Creatinine Ratio 10.1; Bilirubin, Total 0.8 mg/dL (0.2-1.0); Total Protein 6.5 g/dL (6.4-8.2)
[2021-06-23 14:31] LABS: Band Neutrophils % (manual) 2; Eosinophils % (manual) 18 (0-7); Lymphocytes % (manual) 15 (10.0-50.0); Monocytes % (manual) 4 (0-12)
[2021-06-23] MEDS ORDERED: MORPHINE SULFATE INJECTION 2 MG/ML SYRG IV ONE (18:45)
[2021-06-23] MEDS ORDERED: DEXTROSE (50%) 50ML SYRG IV PRN (18:45)
[2021-06-23] MEDS ORDERED: NITROGLYCERIN 0.4 MG SL TAB SL PRN (18:45)
[2021-06-23] MEDS ORDERED: ACETAMINOPHEN 500 MG TAB PO PRN (18:45)
[2021-06-23] MEDS ORDERED: MORPHINE SULFATE INJECTION 2 MG/ML SYRG IV PRN ×2 (18:45)
[2021-06-23] MEDS ORDERED: ONDANSETRON HCL 4 MG/2 ML VIAL IV PRN (18:45)
[2021-06-23] MEDS ORDERED: CARVEDILOL 3.125 MG TAB PO SCH (22:00)
[2021-06-23] MEDS: InsuLIN REG 1unit/0.01ml Soln (100units/ml) SC SCH (23:11)
[2021-06-23] MEDS: SILDENAFIL CITRATE 20 MG TAB PO SCH (23:11)
[2021-06-23] MEDS: ACCU-CHEK COMFORT CURVE STRIP VI SCH (23:12)
[2021-06-23] MEDS: cloNIDine HCL 0.1 MG TAB PO SCH (23:42)
[2021-06-23] MEDS: hydrALAZINE HCL 25 MG TAB PO SCH (23:42)
[2021-06-23] MEDS: BRIMONIDINE 0.2% OPTH Soln 5ml EACHEYE SCH (23:42)
[2021-06-24] VITALS (7 sets, daily range): BP systolic 90–124; BP diastolic 55–74
[2021-06-24] MEDS: hydrALAZINE HCL 25 MG TAB PO SCH (06:00)
[2021-06-24] MEDS: ACCU-CHEK COMFORT CURVE STRIP VI SCH ×4 (06:33→22:37)
[2021-06-24] MEDS: InsuLIN REG 1unit/0.01ml Soln (100units/ml) SC SCH ×4 (06:33→22:39)
[2021-06-24] MEDS: BRIMONIDINE 0.2% OPTH Soln 5ml EACHEYE SCH ×3 (06:33→22:36)
[2021-06-24] MEDS: SILDENAFIL CITRATE 20 MG TAB PO SCH ×3 (06:34→22:37)
[2021-06-24] MEDS: traMADol HCL 50 MG TAB PO PRN ×2 (06:35→22:37)
[2021-06-24] MEDS: SEVELAMER 800 MG TAB PO SCH ×3 (08:48→17:50)
[2021-06-24] MEDS ORDERED: SODIUM CHL 0.9% 1000 ML BAG XX ONE (09:45)
[2021-06-24] MEDS: CARVEDILOL 3.125 MG TAB PO SCH ×3 (09:45→22:00)
[2021-06-24] MEDS: LISINOPRIL 20 MG TAB PO SCH ×2 (09:45→10:00)
[2021-06-24] MEDS ORDERED: LISINOPRIL 20 MG TAB PO SCH (10:00)
[2021-06-24] MEDS: cloNIDine HCL 0.1 MG TAB PO SCH ×2 (10:00→22:00)
[2021-06-24] MEDS ORDERED: EPOETIN ALFA-EPBX 10,000 UNIT/1ML VIAL SC ONE (21:00)
[2021-06-24] MEDS ORDERED: ATORVASTATIN 20 MG TAB PO SCH (22:00)
[2021-06-25 05:00] VITALS: BP 115/70
[2021-06-25] MEDS: BRIMONIDINE 0.2% OPTH Soln 5ml EACHEYE SCH ×2 (05:52→14:52)
[2021-06-25] MEDS: SILDENAFIL CITRATE 20 MG TAB PO SCH ×2 (05:52→14:00)
[2021-06-25] MEDS: ACCU-CHEK COMFORT CURVE STRIP VI SCH ×3 (06:35→18:13)
[2021-06-25] MEDS: InsuLIN REG 1unit/0.01ml Soln (100units/ml) SC SCH ×3 (06:36→17:00)
[2021-06-25 08:00] VITALS: BP 105/65
[2021-06-25] MEDS: SEVELAMER 800 MG TAB PO SCH ×3 (08:29→18:13)
[2021-06-25 08:44] VITALS: BP 105/65
[2021-06-25 08:49] VITALS: BP 147/91
[2021-06-25] MEDS: cloNIDine HCL 0.1 MG TAB PO SCH (09:44)
[2021-06-25] MEDS: LISINOPRIL 20 MG TAB PO SCH (09:45)
[2021-06-25] MEDS: CARVEDILOL 3.125 MG TAB PO SCH (09:45)
[2021-06-25 13:00] VITALS: BP 104/67
[2021-06-25 13:12] VITALS: BP 105/65
== END 2021-06-25 18:45 | disposition home or self-care (01) | DRG 432 ==
LOC: ER 11:19 → TELE 18:45 → TELE-WESTW 22:40
PROVIDERS: ADMIT Nurse Practitioner Acute Care; ATTEND Family Medicine
PROC: 0W9G3ZZ Drainage of Peritoneal Cavity, Percutaneous Approach (ICD-10-PCS; principal; 2021-06-24)
PROC: 5A1D70Z Performance of Urinary Filtration, Intermittent, Less than 6 Hours Per Day (ICD-10-PCS; 2021-06-24)
PROC: 0W9G3ZZ Drainage of Peritoneal Cavity, Percutaneous Approach (ICD-10-PCS; 2021-06-25)
DX: K70.31 Alcoholic cirrhosis of liver with ascites (principal); N18.6 End stage renal disease; I50.32 Chronic diastolic (congestive) heart failure; I13.2 Hypertensive heart and chronic kidney disease with heart failure and with stage 5 chronic kidney disease, or end stage renal disease; I27.20 Pulmonary hypertension, unspecified; I25.10 Atherosclerotic heart disease of native coronary artery without angina pectoris; F32.9 Major depressive disorder, single episode, unspecified; E11.9 Type 2 diabetes mellitus without complications; D63.1 Anemia in chronic kidney disease; E78.5 Hyperlipidemia, unspecified; E11.22 Type 2 diabetes mellitus with diabetic chronic kidney disease; M10.9 Gout, unspecified; Z20.822 Contact with and (suspected) exposure to COVID-19; Z79.4 Long term (current) use of insulin; Z79.01 Long term (current) use of anticoagulants; Z79.899 Other long term (current) drug therapy; Z82.3 Family history of stroke; Z82.49 Family history of ischemic heart disease and other diseases of the circulatory system; Z83.3 Family history of diabetes mellitus; Z86.73 Personal history of transient ischemic attack (TIA), and cerebral infarction without residual deficits; Z99.2 Dependence on renal dialysis; Z90.49 Acquired absence of other specified parts of digestive tract
CPT/HCPCS: 36415; 76942; 80053; 82962; 83690; 85007; 85027; 85610; 85730; 87081; 87426; 90935; 93005; 93970; 96374; 96375; G0378; J1815; J2405

== ENCOUNTER 2021-07-11 18:07 | Inpatient (IN) | payer MEDICARE, MEDICAID ==
[~2021-07-11] VITALS: Ht 162.6 cm; Wt 68.5 kg
[2021-07-11 21:29] LABS: Hematocrit 32.7 % (36.0-46.0); Hemoglobin 10.5 g/dL (12.2-16.2); Mean Corpuscular Hemoglobin 31.2 pg (28.0-32.0); Mean Corpuscular Hgb Conc. 32.1 g/dL (32.0-36.0); Mean Corpuscular Volume 97.1 fL (80.0-100.0); Red Blood Cells 3.37 10^6/uL (4.0-5.20); Red Cell Distribution Width 14.7 % (11.8-14.3); White Blood Cell 6.6 10^3/uL (4.4-10.8)
[2021-07-11 21:34] LABS: Basophils % (manual) 0 (0.0-2.0); Blast Cells 0; Myelocytes % 0; Promyelocytes % 0; Reactive Lymphocytes 0
[2021-07-11 21:47] LABS: BUN/Creatinine Ratio 11.9; Calcium 7.4 mg/dL (8.5-10.1); Potassium 3.9 mmol/L (3.5-5.1)
[2021-07-11 21:50] LABS: Bilirubin, Total 0.5 mg/dL (0.2-1.0); INR 1.19 (0.9-1.15); Partial Thromboplastin Time 26.1 sec (23.6-33.0); Total Protein 5.9 g/dL (6.4-8.2)
[2021-07-11 21:58] LABS: Band Neutrophils % (manual) 3; Eosinophils % (manual) 19 (0-7); Lymphocytes % (manual) 11 (10.0-50.0); Metamyelocytes % 2; Monocytes % (manual) 3 (0-12)
[2021-07-12] MEDS ORDERED: HYDROcodone-ACET 5/325MG TAB PO PRN
[2021-07-12] MEDS ORDERED: NITROGLYCERIN 0.4 MG SL TAB SL PRN
[2021-07-12] MEDS ORDERED: DOCUSATE SOD 100 MG CAP PO PRN
[2021-07-12] MEDS ORDERED: ACETAMINOPHEN 325 MG TAB PO PRN
[2021-07-12] MEDS ORDERED: MORPHINE SULFATE 4 MG/ML SYR/VIAL IV PRN
[2021-07-12] MEDS ORDERED: DEXTROSE (50%) 50ML SYRG IV PRN
[2021-07-12] MEDS ORDERED: MORPHINE SULFATE INJECTION 2 MG/ML SYRG IV PRN
[2021-07-12] MEDS ORDERED: ALBUMIN 25% 50 ML IV ONE (00:15)
[2021-07-12] MEDS: ONDANSETRON HCL 4 MG/2 ML VIAL IV PRN ×2 (02:19→12:48)
[2021-07-12] MEDS: SODIUM CHLOR 0.9% PF (SALINE LOCK) 10ML VIAL/SYR IV SCH ×3 (06:00→22:00)
[2021-07-12 06:30] VITALS: BP 107/51
[2021-07-12] MEDS: InsuLIN REG 1unit/0.01ml Soln (100units/ml) SC SCH ×3 (08:25→18:01)
[2021-07-12] MEDS: ACCU-CHEK COMFORT CURVE STRIP VI SCH ×4 (08:30→23:15)
[2021-07-12 09:10] VITALS: BP 107/51
[2021-07-12] MEDS: FAMOTIDINE (10MG/ML) 2ML VL IV SCH ×2 (11:12→22:00)
[2021-07-12] MEDS: ASCORBIC ACID 500 MG TAB PO SCH ×2 (11:12→23:06)
[2021-07-12] MEDS: MULTIPLE VITAMIN TAB PO SCH (11:12)
[2021-07-12] MEDS: ZINC SULFATE 220mg CAP or TAB PO SCH (11:13)
[2021-07-12] MEDS: HEPARIN SODIUM (PORCINE) 5000 UNITS/ML 1ML VIAL SC SCH ×2 (11:25→23:12)
[2021-07-12 13:00] VITALS: BP 114/74
[2021-07-12] MEDS ORDERED: BISACODYL 5 MG EC TAB PO ONE (13:30)
[2021-07-12] MEDS ORDERED: POLYETHYLENE GLYCOL 17 GM PWDR PO ONE ×2 (13:30→14:45)
[2021-07-12 14:20] LABS: Hematocrit 35.6 % (36.0-46.0); Hemoglobin 11.4 g/dL (12.2-16.2); Mean Corpuscular Hemoglobin 31.1 pg (28.0-32.0); Mean Corpuscular Volume 97.3 fL (80.0-100.0); Red Blood Cells 3.66 10^6/uL (4.0-5.20); Red Cell Distribution Width 14.8 % (11.8-14.3); White Blood Cell 6.7 10^3/uL (4.4-10.8)
[2021-07-12 14:24] LABS: Basophils % (manual) 0 (0.0-2.0); Blast Cells 0; Metamyelocytes % 0; Myelocytes % 0; Promyelocytes % 0; Reactive Lymphocytes 0
[2021-07-12 14:39] LABS: Albumin 2.3 g/dL (3.4-5.0); BUN/Creatinine Ratio 11.2; Calcium 7.5 mg/dL (8.5-10.1); Potassium 4.6 mmol/L (3.5-5.1)
[2021-07-12 14:40] LABS: Band Neutrophils % (manual) 1; Eosinophils % (manual) 13 (0-7); Lymphocytes % (manual) 19 (10.0-50.0); Monocytes % (manual) 5 (0-12)
[2021-07-12 14:41] LABS: Bilirubin, Total 0.6 mg/dL (0.2-1.0); Total Protein 6.2 g/dL (6.4-8.2)
[2021-07-12 21:53] VITALS: BP 110/78
[2021-07-12] MEDS ORDERED: InsuLIN REG 1unit/0.01ml Soln (100units/ml) SC SCH (22:00)
[2021-07-13 05:30] VITALS: BP 115/73
[2021-07-13] MEDS: ACCU-CHEK COMFORT CURVE STRIP VI SCH ×2 (06:34→11:30)
[2021-07-13] MEDS: InsuLIN REG 1unit/0.01ml Soln (100units/ml) SC SCH ×2 (06:34→11:30)
[2021-07-13] MEDS: SODIUM CHLOR 0.9% PF (SALINE LOCK) 10ML VIAL/SYR IV SCH ×2 (06:35→14:00)
[2021-07-13 09:03] VITALS: BP 121/74
[2021-07-13] MEDS: HEPARIN SODIUM (PORCINE) 5000 UNITS/ML 1ML VIAL SC SCH (10:00)
[2021-07-13] MEDS: ASCORBIC ACID 500 MG TAB PO SCH (10:00)
[2021-07-13] MEDS: MULTIPLE VITAMIN TAB PO SCH (10:00)
[2021-07-13] MEDS: ZINC SULFATE 220mg CAP or TAB PO SCH (10:00)
[2021-07-13] MEDS: FAMOTIDINE (10MG/ML) 2ML VL IV SCH (10:00)
[2021-07-13 13:00] VITALS: BP 119/76
[2021-07-13 16:28] VITALS: BP 119/76
[2021-07-13 17:00] VITALS: BP 122/76
== END 2021-07-13 16:45 | disposition home health service (06) | DRG 432 ==
LOC: ER 18:08 → TELE 07-12 00:08 → TELE-WESTW 07-12 06:29
PROVIDERS: ADMIT Nurse Practitioner Family; ATTEND Internal Medicine
PROC: 0W9G3ZZ Drainage of Peritoneal Cavity, Percutaneous Approach (ICD-10-PCS; principal; 2021-07-13)
DX: K74.60 Unspecified cirrhosis of liver (principal); N18.6 End stage renal disease; E43 Unspecified severe protein-calorie malnutrition; R18.8 Other ascites; I31.3 Pericardial effusion (noninflammatory); I13.2 Hypertensive heart and chronic kidney disease with heart failure and with stage 5 chronic kidney disease, or end stage renal disease; Z20.822 Contact with and (suspected) exposure to COVID-19; E88.09 Other disorders of plasma-protein metabolism, not elsewhere classified; E11.65 Type 2 diabetes mellitus with hyperglycemia; H54.7 Unspecified visual loss; D63.8 Anemia in other chronic diseases classified elsewhere; F32.A Depression, unspecified; E11.22 Type 2 diabetes mellitus with diabetic chronic kidney disease; E78.5 Hyperlipidemia, unspecified; K59.00 Constipation, unspecified; I25.10 Atherosclerotic heart disease of native coronary artery without angina pectoris; I50.9 Heart failure, unspecified; Z79.4 Long term (current) use of insulin; Z82.3 Family history of stroke; Z82.49 Family history of ischemic heart disease and other diseases of the circulatory system; Z83.3 Family history of diabetes mellitus; Z86.73 Personal history of transient ischemic attack (TIA), and cerebral infarction without residual deficits; Z90.49 Acquired absence of other specified parts of digestive tract; Z99.2 Dependence on renal dialysis
CPT/HCPCS: 36415; 74176; 76942; 80053; 80320; 82150; 82962; 83036; 83690; 85007; 85027; 85610; 85730; 87426; G0378; J1815; J2405; J3490

== ENCOUNTER 2021-07-24 07:57 | Inpatient (IN) | payer MEDICARE, MEDICAID ==
[~2021-07-24] VITALS: Ht 162.6 cm; Wt 63.0 kg
[2021-07-24 09:50] LABS: Basophils # (auto) 0.1 10 ^3/uL (0-0.2); Basophils % (auto) 2.2 % (0.0-2.0); Eosinophils # (auto) 0.4 10 ^3/uL (0-0.8); Eosinophils % (auto) 9.7 % (0.0-7.0); Hematocrit 33.1 % (36.0-46.0); Lymphocytes # (auto) 0.3 10 ^3/uL (0.4-5.4); Lymphocytes % (auto) 7.3 % (10.0-50.0); Mean Corpuscular Hemoglobin 32.1 pg (28.0-32.0); Mean Corpuscular Hgb Conc. 33.2 g/dL (32.0-36.0); Mean Corpuscular Volume 96.7 fL (80.0-100.0); Monocytes # (auto) 0.5 10 ^3/uL (0-1.3); Monocytes % (auto) 12.1 % (0.0-12.0); Neutrophils % (auto) 68.7 % (37.0-80.0); Nucleated Red Blood Cells % 0.1 %; Red Blood Cells 3.42 10^6/uL (4.0-5.20); Red Cell Distribution Width 15.3 % (11.8-14.3); White Blood Cell 4.4 10^3/uL (4.4-10.8)
[2021-07-24 10:00] LABS: INR 1.21 (0.9-1.15); Partial Thromboplastin Time 27.7 sec (23.6-33.0)
[2021-07-24 10:05] LABS: Calcium 7.6 mg/dL (8.5-10.1); Potassium 4.6 mmol/L (3.5-5.1)
[2021-07-24 10:20] LABS: BUN/Creatinine Ratio 10.6; Bilirubin, Total 0.7 mg/dL (0.2-1.0); Total Protein 5.8 g/dL (6.4-8.2)
[2021-07-24] MEDS ORDERED: ENOXAPARIN SOD 60 MG/0.6 ML SYRINGE SC ONE (10:45)
[2021-07-24] MEDS ORDERED: MORPHINE SULFATE INJECTION 2 MG/ML SYRG IV PRN ×3 (11:45→13:45)
[2021-07-24] MEDS ORDERED: HEPARIN DRIP/D5W 100UNITS/ML 250 ML IV SCH (11:45)
[2021-07-24] MEDS ORDERED: NITROGLYCERIN 0.4 MG SL TAB SL PRN ×2 (11:45→13:45)
[2021-07-24] MEDS ORDERED: LORazepam 0.5 MG TAB PO PRN (13:45)
[2021-07-24] MEDS ORDERED: FUROSEMIDE 100 MG/10ML VIAL IV ONE (13:45)
[2021-07-24] MEDS ORDERED: DOCUSATE SOD 100 MG CAP PO PRN (13:45)
[2021-07-24] MEDS ORDERED: ACETAMINOPHEN 325 MG TAB PO PRN (13:45)
[2021-07-24] MEDS ORDERED: PANTOPRAZOLE 40 MG/10 ML VIAL INJ IV ONE (13:45)
[2021-07-24] MEDS ORDERED: HYDROcodone-ACET 5/325MG TAB PO PRN (13:45)
[2021-07-24] MEDS ORDERED: ALUM & MAG HYDROX-SIMETH LIQ(MAALOX) 30 ML PO PRN (13:45)
[2021-07-24] MEDS ORDERED: ONDANSETRON HCL 4 MG/2 ML VIAL IV PRN (13:45)
[2021-07-24] MEDS ORDERED: ALBUMIN 25% 100 ML IV ONE (13:45)
[2021-07-24] MEDS ORDERED: DEXTROSE (50%) 50ML SYRG IV PRN (13:45)
[2021-07-24] MEDS ORDERED: LABETALOL HCL 5 MG/ML 4ML SYRINGE IV PRN (13:45)
[2021-07-24] MEDS: BRIMONIDINE 0.2% OPTH Soln 5ml EACHEYE SCH ×2 (14:00→22:00)
[2021-07-24] MEDS: hydrALAZINE HCL 25 MG TAB PO SCH ×2 (14:00→21:15)
[2021-07-24 14:55] LABS: Cholesterol 81 mg/dL (< 200)
[2021-07-24 14:58] LABS: HDL Cholesterol 42 mg/dL (40-59); LDL Cholesterol 31 mg/dL (< 100); Triglycerides 90 mg/dL (< 150)
[2021-07-24] MEDS: SILDENAFIL CITRATE 20 MG TAB PO SCH ×2 (15:21→21:14)
[2021-07-24] MEDS ORDERED: AMIODARONE HCL 200 MG TAB PO ONE (16:00)
[2021-07-24] MEDS ORDERED: CLOPIDOGREL BISULFATE 75 MG TAB PO ONE (16:00)
[2021-07-24] MEDS: InsuLIN REG 1unit/0.01ml Soln (100units/ml) SC SCH ×2 (17:00→21:17)
[2021-07-24] MEDS: ACCU-CHEK COMFORT CURVE STRIP VI SCH ×2 (17:53→21:17)
[2021-07-24] MEDS: LACTULOSE 20Gm/30ML SOLN PO SCH (17:53)
[2021-07-24] MEDS: SEVELAMER 800 MG TAB PO SCH (17:54)
[2021-07-24] MEDS: ATORVASTATIN 20 MG TAB PO SCH (21:14)
[2021-07-24] MEDS: CARVEDILOL 3.125 MG TAB PO SCH (21:15)
[2021-07-24] MEDS: FUROSEMIDE 100 MG/10ML VIAL IV SCH (21:16)
[2021-07-24 22:10] VITALS: BP 110/60
[2021-07-24] MEDS ORDERED: TRAZ-184 PO (23:39)
[2021-07-24] MEDS ORDERED: PANT40TA2 PO (23:39)
[2021-07-24] MEDS ORDERED: APIX2.5T PO (23:39)
[2021-07-25] MEDS: LACTULOSE 20Gm/30ML SOLN PO SCH ×5 (01:23→23:49)
[2021-07-25 05:00] VITALS: BP 89/50
[2021-07-25] MEDS: BRIMONIDINE 0.2% OPTH Soln 5ml EACHEYE SCH ×3 (05:22→21:43)
[2021-07-25] MEDS: hydrALAZINE HCL 25 MG TAB PO SCH ×3 (05:24→21:43)
[2021-07-25] MEDS: SILDENAFIL CITRATE 20 MG TAB PO SCH ×3 (05:25→21:44)
[2021-07-25] MEDS: InsuLIN REG 1unit/0.01ml Soln (100units/ml) SC SCH ×4 (05:34→21:44)
[2021-07-25] MEDS: ACCU-CHEK COMFORT CURVE STRIP VI SCH ×4 (05:34→21:45)
[2021-07-25 08:00] VITALS: BP 85/46
[2021-07-25] MEDS: SEVELAMER 800 MG TAB PO SCH ×3 (08:19→18:35)
[2021-07-25 08:43] VITALS: BP 85/46
[2021-07-25] MEDS: FUROSEMIDE 100 MG/10ML VIAL IV SCH ×2 (10:00→21:43)
[2021-07-25] MEDS ORDERED: LISINOPRIL 20 MG TAB PO SCH (10:00)
[2021-07-25] MEDS: CARVEDILOL 3.125 MG TAB PO SCH ×2 (10:00→21:44)
[2021-07-25] MEDS: LISINOPRIL 20 MG TAB PO SCH (10:00)
[2021-07-25] MEDS ORDERED: ISOSORBIDE MONONITRATE ER 60 MG TAB PO SCH (10:00)
[2021-07-25] MEDS: cefTRIAXone 1GM/50ML D5W 50 ML IV SCH (10:22)
[2021-07-25] MEDS: AMIODARONE HCL 200 MG TAB PO SCH ×2 (10:24→21:44)
[2021-07-25] MEDS: PANTOPRAZOLE 40 MG/10 ML VIAL INJ IV SCH (10:24)
[2021-07-25] MEDS: APIXABAN 2.5 MG TAB PO SCH (10:25)
[2021-07-25] MEDS: CLOPIDOGREL BISULFATE 75 MG TAB PO SCH (10:25)
[2021-07-25 13:00] VITALS: BP 117/68
[2021-07-25 17:00] VITALS: BP 113/62
[2021-07-25] MEDS: ATORVASTATIN 20 MG TAB PO SCH (21:44)
[2021-07-25 22:03] VITALS: BP 91/55
[2021-07-26 04:48] VITALS: BP 99/62
[2021-07-26 05:31] LABS: Basophils # (auto) 0.1 10 ^3/uL (0-0.2); Basophils % (auto) 1.9 % (0.0-2.0); Eosinophils # (auto) 0.6 10 ^3/uL (0-0.8); Eosinophils % (auto) 12.4 % (0.0-7.0); Hematocrit 33.6 % (36.0-46.0); Hemoglobin 11.1 g/dL (12.2-16.2); Lymphocytes # (auto) 0.6 10 ^3/uL (0.4-5.4); Lymphocytes % (auto) 13.6 % (10.0-50.0); Mean Corpuscular Hemoglobin 31.7 pg (28.0-32.0); Mean Corpuscular Hgb Conc. 33.1 g/dL (32.0-36.0); Mean Corpuscular Volume 95.7 fL (80.0-100.0); Monocytes # (auto) 0.7 10 ^3/uL (0-1.3); Monocytes % (auto) 14.4 % (0.0-12.0); Neutrophils # (auto) 2.7 10 ^3/uL (1.6-8.6); Neutrophils % (auto) 57.7 % (37.0-80.0); Nucleated Red Blood Cells % 0.1 %; Red Blood Cells 3.51 10^6/uL (4.0-5.20); Red Cell Distribution Width 14.6 % (11.8-14.3); White Blood Cell 4.7 10^3/uL (4.4-10.8)
[2021-07-26 05:52] LABS: BUN/Creatinine Ratio 9.7; Calcium 7.3 mg/dL (8.5-10.1); Magnesium 2.6 mg/dL (1.6-2.6); Potassium 4.4 mmol/L (3.5-5.1)
[2021-07-26 05:54] LABS: Bilirubin, Total 0.6 mg/dL (0.2-1.0); Phosphorus 3.8 mg/dL (2.5-4.90); Total Protein 5.2 g/dL (6.4-8.2)
[2021-07-26] MEDS: SILDENAFIL CITRATE 20 MG TAB PO SCH ×2 (05:55→14:00)
[2021-07-26] MEDS: hydrALAZINE HCL 25 MG TAB PO SCH ×2 (05:55→14:00)
[2021-07-26] MEDS: LACTULOSE 20Gm/30ML SOLN PO SCH ×2 (05:55→12:00)
[2021-07-26] MEDS: ACCU-CHEK COMFORT CURVE STRIP VI SCH ×2 (05:56→12:39)
[2021-07-26] MEDS: InsuLIN REG 1unit/0.01ml Soln (100units/ml) SC SCH ×2 (05:56→12:39)
[2021-07-26] MEDS: BRIMONIDINE 0.2% OPTH Soln 5ml EACHEYE SCH ×2 (05:57→14:00)
[2021-07-26 06:02] LABS: INR 1.16 (0.9-1.15); Partial Thromboplastin Time 30.2 sec (23.6-33.0)
[2021-07-26 08:00] VITALS: BP 122/78
[2021-07-26] MEDS: SEVELAMER 800 MG TAB PO SCH ×2 (08:00→12:00)
[2021-07-26 09:00] VITALS: BP 122/78
[2021-07-26] MEDS: FUROSEMIDE 100 MG/10ML VIAL IV SCH (10:00)
[2021-07-26] MEDS: AMIODARONE HCL 200 MG TAB PO SCH (10:00)
[2021-07-26] MEDS: PANTOPRAZOLE 40 MG/10 ML VIAL INJ IV SCH (10:00)
[2021-07-26] MEDS: cefTRIAXone 1GM/50ML D5W 50 ML IV SCH (10:00)
[2021-07-26] MEDS: CLOPIDOGREL BISULFATE 75 MG TAB PO SCH (10:01)
[2021-07-26] MEDS: CARVEDILOL 3.125 MG TAB PO SCH (10:01)
[2021-07-26] MEDS: APIXABAN 2.5 MG TAB PO SCH (10:01)
[2021-07-26] MEDS: LISINOPRIL 20 MG TAB PO SCH (10:02)
[2021-07-26 12:00] VITALS: BP 111/56
== END 2021-07-26 16:30 | disposition home or self-care (01) | DRG 432 ==
LOC: ER 07:57 → TELE 11:39 → TELE-WESTW 20:03
PROVIDERS: ADMIT Hospitalist; ATTEND Hospitalist
PROC: 0W9G3ZZ Drainage of Peritoneal Cavity, Percutaneous Approach (ICD-10-PCS; principal; 2021-07-24)
PROC: BD42ZZZ Ultrasonography of Stomach (ICD-10-PCS; 2021-07-24)
DX: K74.69 Other cirrhosis of liver (principal); E43 Unspecified severe protein-calorie malnutrition; I50.43 Acute on chronic combined systolic (congestive) and diastolic (congestive) heart failure; N18.6 End stage renal disease; I21.4 Non-ST elevation (NSTEMI) myocardial infarction; I13.2 Hypertensive heart and chronic kidney disease with heart failure and with stage 5 chronic kidney disease, or end stage renal disease; I16.9 Hypertensive crisis, unspecified; I31.3 Pericardial effusion (noninflammatory); I42.5 Other restrictive cardiomyopathy; I48.92 Unspecified atrial flutter; R18.8 Other ascites; D63.8 Anemia in other chronic diseases classified elsewhere; K74.60 Unspecified cirrhosis of liver; E11.22 Type 2 diabetes mellitus with diabetic chronic kidney disease; E78.5 Hyperlipidemia, unspecified; E83.39 Other disorders of phosphorus metabolism; F32.9 Major depressive disorder, single episode, unspecified; I25.5 Ischemic cardiomyopathy; H40.9 Unspecified glaucoma; H54.8 Legal blindness, as defined in USA; I07.1 Rheumatic tricuspid insufficiency; I25.10 Atherosclerotic heart disease of native coronary artery without angina pectoris; I27.20 Pulmonary hypertension, unspecified; I48.91 Unspecified atrial fibrillation; Z20.822 Contact with and (suspected) exposure to COVID-19; M10.9 Gout, unspecified; F32.A Depression, unspecified; Z79.4 Long term (current) use of insulin; Z68.23 Body mass index [BMI] 23.0-23.9, adult; Z82.3 Family history of stroke; Z82.49 Family history of ischemic heart disease and other diseases of the circulatory system; Z83.3 Family history of diabetes mellitus; Z86.73 Personal history of transient ischemic attack (TIA), and cerebral infarction without residual deficits; Z90.49 Acquired absence of other specified parts of digestive tract; Z99.2 Dependence on renal dialysis
CPT/HCPCS: 36415; 49083; 76942; 80053; 80061; 82962; 83735; 83880; 84100; 84484; 85025; 85610; 85730; 87040; 87081; 87426; 93005; 93306; 96365; 96366; 96372; 96375; 99291; C9113; G0378; J0696; J1815; J2405; P9047

== ENCOUNTER 2021-08-01 23:05 | Emergency (ER) | payer MEDICARE, MEDICAID ==
[~2021-08-01] VITALS: Ht 162.6 cm; Wt 61.2 kg
[~2021-08-01 23:05] MED LIST changes: +PANT40TA2 PO; +TRAZ-184 PO
[2021-08-02 01:24] LABS: Basophils # (auto) 0.2 10 ^3/uL (0-0.2); Basophils % (auto) 2.5 % (0.0-2.0); Eosinophils # (auto) 0.7 10 ^3/uL (0-0.8); Eosinophils % (auto) 10.8 % (0.0-7.0); Lymphocytes # (auto) 1.1 10 ^3/uL (0.4-5.4); Lymphocytes % (auto) 17.1 % (10.0-50.0); Mean Corpuscular Hemoglobin 31.3 pg (28.0-32.0); Mean Corpuscular Hgb Conc. 32.3 g/dL (32.0-36.0); Mean Corpuscular Volume 96.9 fL (80.0-100.0); Monocytes # (auto) 0.4 10 ^3/uL (0-1.3); Monocytes % (auto) 6.7 % (0.0-12.0); Neutrophils % (auto) 62.9 % (37.0-80.0); Nucleated Red Blood Cells % 0.1 %; Red Blood Cells 3.51 10^6/uL (4.0-5.20); Red Cell Distribution Width 15.1 % (11.8-14.3); White Blood Cell 6.4 10^3/uL (4.4-10.8)
[2021-08-02 01:44] LABS: Albumin 2.2 g/dL (3.4-5.0); BUN/Creatinine Ratio 7.6; Calcium 7.4 mg/dL (8.5-10.1); Potassium 3.7 mmol/L (3.5-5.1)
[2021-08-02 01:46] LABS: Bilirubin, Total 0.5 mg/dL (0.2-1.0)
[2021-08-02] MEDS ORDERED: ASPirin 81 mg TAB PO ONE (02:15)
[2021-08-02 11:00] LABS: Urine Bacteria FEW /hpf (None Seen); Urine Blood 1+ /uL (Negative); Urine Sperm PRESENT /hpf (None Seen); Urine WBC 28 /hpf (0 - 5)
[2021-08-03 09:24] LABS: INR 1.1 (0.9-1.15); Partial Thromboplastin Time 26.2 sec (23.6-33.0)
[2021-08-03 10:00] VITALS: BP 146/99
== END 2021-08-03 11:50 | disposition home or self-care (01) ==
LOC: ER 23:05
DX: K74.69 Other cirrhosis of liver (principal); D64.9 Anemia, unspecified; E43 Unspecified severe protein-calorie malnutrition; I13.2 Hypertensive heart and chronic kidney disease with heart failure and with stage 5 chronic kidney disease, or end stage renal disease; E11.22 Type 2 diabetes mellitus with diabetic chronic kidney disease; N18.6 End stage renal disease; I25.10 Atherosclerotic heart disease of native coronary artery without angina pectoris; E78.5 Hyperlipidemia, unspecified; F32.9 Major depressive disorder, single episode, unspecified; Z68.23 Body mass index [BMI] 23.0-23.9, adult; Z79.4 Long term (current) use of insulin; Z79.899 Other long term (current) drug therapy; Z90.89 Acquired absence of other organs
CPT/HCPCS: 36415; 76942; 80053; 81001; 83605; 83880; 85025; 85610; 85730; 93005; 99285; C1729

== ENCOUNTER 2021-08-13 09:27 | Emergency (ER) | payer MEDICARE, MEDICAID ==
[~2021-08-13] VITALS: Ht 157.5 cm; Wt 68.0 kg
[2021-08-13 11:29] LABS: INR 1.1 (0.9-1.15); Partial Thromboplastin Time 25.4 sec (23.6-33.0)
[2021-08-13 14:17] VITALS: BP 120/75
[2021-09-01] MEDS ORDERED: DOXY-286 PO (12:09)
== END 2021-08-13 16:33 | disposition home or self-care (01) ==
LOC: ER 09:27
DX: R51.9 Headache, unspecified (principal); I12.0 Hypertensive chronic kidney disease with stage 5 chronic kidney disease or end stage renal disease; E11.22 Type 2 diabetes mellitus with diabetic chronic kidney disease; N18.6 End stage renal disease; K70.31 Alcoholic cirrhosis of liver with ascites; Z86.73 Personal history of transient ischemic attack (TIA), and cerebral infarction without residual deficits
CPT/HCPCS: 36415; 49083; 70450; 76705; 76942; 83986; 85610; 85730; 87205; 89051

== ENCOUNTER 2021-08-27 10:06 | Inpatient (IN) | payer MEDICARE, MEDICAID ==
[~2021-08-27] VITALS: Ht 157.5 cm; Wt 63.9 kg
[2021-08-27 11:23] LABS: Basophils # (auto) 0.1 10 ^3/uL (0-0.2); Eosinophils # (auto) 0.6 10 ^3/uL (0-0.8); Eosinophils % (auto) 11.7 % (0.0-7.0); Hematocrit 33.8 % (36.0-46.0); Hemoglobin 11.2 g/dL (12.2-16.2); Lymphocytes # (auto) 0.5 10 ^3/uL (0.4-5.4); Lymphocytes % (auto) 10.6 % (10.0-50.0); Mean Corpuscular Hemoglobin 32.4 pg (28.0-32.0); Mean Corpuscular Hgb Conc. 33.1 g/dL (32.0-36.0); Mean Corpuscular Volume 97.8 fL (80.0-100.0); Monocytes # (auto) 0.5 10 ^3/uL (0-1.3); Monocytes % (auto) 11.1 % (0.0-12.0); Neutrophils # (auto) 3.2 10 ^3/uL (1.6-8.6); Neutrophils % (auto) 64.6 % (37.0-80.0); Nucleated Red Blood Cells % 0.1 %; Red Blood Cells 3.46 10^6/uL (4.0-5.20); Red Cell Distribution Width 15.2 % (11.8-14.3); White Blood Cell 4.9 10^3/uL (4.4-10.8)
[2021-08-27 11:42] LABS: INR 1.17 (0.9-1.15); Partial Thromboplastin Time 29.2 sec (23.6-33.0)
[2021-08-27 11:52] LABS: Calcium 7.4 mg/dL (8.5-10.1); Potassium 4.3 mmol/L (3.5-5.1)
[2021-08-27 11:55] LABS: BUN/Creatinine Ratio 7.5; Bilirubin, Total 0.6 mg/dL (0.2-1.0); Total Protein 6.2 g/dL (6.4-8.2)
[2021-08-27 18:00] LABS: Urine Bacteria NONE SEEN /hpf (None Seen); Urine Blood 2+ /uL (Negative); Urine Specific Gravity 1.018 (1.001-1.035); Urine WBC 21 /hpf (0 - 5)
[2021-08-27] MEDS ORDERED: ONDANSETRON HCL 4 MG/2 ML VIAL IV ONE (18:15)
[2021-08-27] MEDS ORDERED: MORPHINE SULFATE 4 MG/ML SYR/VIAL IV ONE (18:15)
[2021-08-27] MEDS ORDERED: cefTRIAXone 1GM/50ML D5W 50 ML IV ONE (19:00)
[2021-08-27] MEDS ORDERED: MORPHINE SULFATE INJECTION 2 MG/ML SYRG IV PRN (20:15)
[2021-08-27] MEDS ORDERED: NITROGLYCERIN 0.4 MG SL TAB SL PRN (20:15)
[2021-08-27] MEDS ORDERED: DOCUSATE CALCIUM 240 MG CAP PO PRN (20:15)
[2021-08-27] MEDS ORDERED: ONDANSETRON HCL 4 MG/2 ML VIAL IV PRN (20:15)
[2021-08-27] MEDS ORDERED: hydrALAZINE HCL 20 MG/ML VL IV PRN (20:15)
[2021-08-27] MEDS ORDERED: DEXTROSE (50%) 50ML SYRG IV PRN (20:15)
[2021-08-27] MEDS ORDERED: PROMETHAZINE-DM 5 ML ORAL SYRUP PO PRN (20:45)
[2021-08-27 22:30] VITALS: BP 118/71
[2021-08-27] MEDS: traZODone HCL 50 MG TAB PO SCH (22:30)
[2021-08-27] MEDS: CARVEDILOL 3.125 MG TAB PO SCH (22:30)
[2021-08-27] MEDS: ASPirin 81 mg TAB PO SCH (23:33)
[2021-08-28] MEDS: MORPHINE SULFATE INJECTION 2 MG/ML SYRG IV PRN ×3 (01:11→16:22)
[2021-08-28] MEDS ORDERED: INFLUENZA QUAD 2021-2022 0.5 ML SYRG IM ONE (03:30)
[2021-08-28] MEDS ORDERED: BENZ100C97 PO (03:53)
[2021-08-28] MEDS: ACCU-CHEK COMFORT CURVE STRIP VI SCH ×6 (04:00→20:00)
[2021-08-28] MEDS: InsuLIN REG 1unit/0.01ml Soln (100units/ml) SC SCH ×6 (04:00→20:00)
[2021-08-28] MEDS ORDERED: MISCTAB OR (04:03)
[2021-08-28] MEDS ORDERED: DORZ2SOL18 EACHEYE (04:03)
[2021-08-28] MEDS ORDERED: DILT-29 PO (04:03)
[2021-08-28 06:00] LABS: Basophils # (auto) 0.1 10 ^3/uL (0-0.2); Basophils % (auto) 1.9 % (0.0-2.0); Eosinophils # (auto) 0.3 10 ^3/uL (0-0.8); Eosinophils % (auto) 7.8 % (0.0-7.0); Hematocrit 33.7 % (36.0-46.0); Lymphocytes # (auto) 0.7 10 ^3/uL (0.4-5.4); Lymphocytes % (auto) 17.5 % (10.0-50.0); Mean Corpuscular Hemoglobin 32.3 pg (28.0-32.0); Mean Corpuscular Hgb Conc. 32.7 g/dL (32.0-36.0); Mean Corpuscular Volume 98.6 fL (80.0-100.0); Monocytes # (auto) 0.6 10 ^3/uL (0-1.3); Monocytes % (auto) 14.2 % (0.0-12.0); Neutrophils # (auto) 2.5 10 ^3/uL (1.6-8.6); Neutrophils % (auto) 58.6 % (37.0-80.0); Red Blood Cells 3.42 10^6/uL (4.0-5.20); Red Cell Distribution Width 15.2 % (11.8-14.3); White Blood Cell 4.2 10^3/uL (4.4-10.8)
[2021-08-28 06:20] LABS: INR 1.11 (0.9-1.15)
[2021-08-28 06:23] LABS: Albumin 2.2 g/dL (3.4-5.0); Calcium 7.1 mg/dL (8.5-10.1); Potassium 4.9 mmol/L (3.5-5.1)
[2021-08-28 06:29] LABS: BUN/Creatinine Ratio 7.6; Bilirubin, Total 0.6 mg/dL (0.2-1.0); Total Protein 5.8 g/dL (6.4-8.2)
[2021-08-28] MEDS: HEPARIN SODIUM (PORCINE) 5000 UNITS/ML 1ML VIAL SC SCH ×3 (07:38→21:58)
[2021-08-28 08:00] VITALS: BP 102/56
[2021-08-28] MEDS: cefTRIAXone 1GM/50ML D5W 50 ML IV SCH (08:43)
[2021-08-28] MEDS: CARVEDILOL 3.125 MG TAB PO SCH ×2 (08:43→21:57)
[2021-08-28] MEDS: ASPirin 81 mg TAB PO SCH (08:43)
[2021-08-28] MEDS: PANTOPRAZOLE 40 MG TAB PO SCH (08:44)
[2021-08-28 09:00] VITALS: BP 104/68
[2021-08-28] MEDS ORDERED: ENOXAPARIN SOD 30 MG/0.3 ML SYRINGE SC SCH (10:00)
[2021-08-28 13:00] VITALS: BP 107/71
[2021-08-28 17:00] VITALS: BP 102/56
[2021-08-28] MEDS: ACETAMINOPHEN 325 MG TAB PO PRN (19:46)
[2021-08-28] MEDS: traZODone HCL 50 MG TAB PO SCH (21:58)
[2021-08-28 22:00] VITALS: BP 94/59
[2021-08-29] MEDS: InsuLIN REG 1unit/0.01ml Soln (100units/ml) SC SCH ×6 (00:45→20:26)
[2021-08-29] MEDS: ACCU-CHEK COMFORT CURVE STRIP VI SCH ×6 (00:46→20:22)
[2021-08-29 05:00] VITALS: BP 142/65
[2021-08-29] MEDS ORDERED: SODIUM CHL 0.9% 1000 ML BAG XX ONE (07:00)
[2021-08-29 08:00] VITALS: BP 125/78
[2021-08-29 09:00] VITALS: BP 125/78
[2021-08-29] MEDS: cefTRIAXone 1GM/50ML D5W 50 ML IV SCH (09:00)
[2021-08-29 09:14] LABS: Basophils # (auto) 0 10 ^3/uL (0-0.2); Basophils % (auto) 0.6 % (0.0-2.0); Eosinophils # (auto) 0.1 10 ^3/uL (0-0.8); Eosinophils % (auto) 1.9 % (0.0-7.0); Hematocrit 38.6 % (36.0-46.0); Hemoglobin 12.6 g/dL (12.2-16.2); Lymphocytes # (auto) 0.4 10 ^3/uL (0.4-5.4); Lymphocytes % (auto) 7.3 % (10.0-50.0); Mean Corpuscular Hemoglobin 31.8 pg (28.0-32.0); Mean Corpuscular Hgb Conc. 32.6 g/dL (32.0-36.0); Mean Corpuscular Volume 97.4 fL (80.0-100.0); Monocytes # (auto) 0.4 10 ^3/uL (0-1.3); Neutrophils % (auto) 83.2 % (37.0-80.0); Red Blood Cells 3.96 10^6/uL (4.0-5.20); Red Cell Distribution Width 14.8 % (11.8-14.3)
[2021-08-29 09:15] LABS: Calcium 6.6 mg/dL (8.5-10.1); Magnesium 2.4 mg/dL (1.6-2.6); Potassium 5.5 mmol/L (3.5-5.1)
[2021-08-29 09:30] LABS: BUN/Creatinine Ratio 7.8
[2021-08-29] MEDS: CARVEDILOL 3.125 MG TAB PO SCH ×3 (10:00→22:25)
[2021-08-29] MEDS: HEPARIN SODIUM (PORCINE) 5000 UNITS/ML 1ML VIAL SC SCH ×2 (12:00→22:26)
[2021-08-29] MEDS: ASPirin 81 mg TAB PO SCH (12:27)
[2021-08-29] MEDS: PANTOPRAZOLE 40 MG TAB PO SCH (12:27)
[2021-08-29] MEDS ORDERED: ALPRAZolam 0.5 MG TAB PO ONE (12:45)
[2021-08-29] MEDS: MORPHINE SULFATE INJECTION 2 MG/ML SYRG IV PRN ×2 (12:51→18:50)
[2021-08-29 13:00] VITALS: BP 147/77
[2021-08-29 13:55] LABS: % Iron Saturation 11.4 % (15-50)
[2021-08-29] MEDS ORDERED: IOHEXOL 350 MG/ML 100ML IJ ONE (14:45)
[2021-08-29 17:00] VITALS: BP 135/89
[2021-08-29] MEDS: ACETAMINOPHEN 325 MG TAB PO PRN (17:34)
[2021-08-29 20:00] VITALS: BP 122/74
[2021-08-29] MEDS ORDERED: EPOETIN ALFA-EPBX 10,000 UNIT/1ML VIAL SC ONE (21:00)
[2021-08-29] MEDS: traZODone HCL 50 MG TAB PO SCH (22:24)
[2021-08-30] MEDS: ACCU-CHEK COMFORT CURVE STRIP VI SCH ×6 (00:09→21:21)
[2021-08-30] MEDS: InsuLIN REG 1unit/0.01ml Soln (100units/ml) SC SCH ×6 (04:00→21:42)
[2021-08-30 05:59] VITALS: BP 119/84
[2021-08-30 09:00] VITALS: BP 124/72
[2021-08-30] MEDS: cefTRIAXone 1GM/50ML D5W 50 ML IV SCH (09:06)
[2021-08-30] MEDS: ASPirin 81 mg TAB PO SCH (09:06)
[2021-08-30] MEDS: CARVEDILOL 3.125 MG TAB PO SCH ×2 (09:06→21:43)
[2021-08-30] MEDS: PANTOPRAZOLE 40 MG TAB PO SCH (09:07)
[2021-08-30] MEDS: guaiFENesin-DM 100/10mg/5ml SYR PO PRN (09:07)
[2021-08-30] MEDS: ALBUTEROL SULF 2.5 MG/0.5ML(0.5%) NEB SOLN NEB PRN (11:08)
[2021-08-30] MEDS: HEPARIN SODIUM (PORCINE) 5000 UNITS/ML 1ML VIAL SC SCH ×2 (12:13→21:11)
[2021-08-30 12:48] VITALS: BP 116/70
[2021-08-30 16:32] VITALS: BP 115/69
[2021-08-30] MEDS: ACETAMINOPHEN 325 MG TAB PO PRN (17:59)
[2021-08-30 20:00] VITALS: BP 106/56
[2021-08-30] MEDS: MORPHINE SULFATE INJECTION 2 MG/ML SYRG IV PRN (21:07)
[2021-08-30] MEDS: traZODone HCL 50 MG TAB PO SCH (21:20)
[2021-08-30 22:00] VITALS: BP 106/56
[2021-08-31] MEDS: ACCU-CHEK COMFORT CURVE STRIP VI SCH ×6 (00:01→20:25)
[2021-08-31] MEDS: InsuLIN REG 1unit/0.01ml Soln (100units/ml) SC SCH ×6 (00:06→20:25)
[2021-08-31 05:00] VITALS: BP 132/77
[2021-08-31] MEDS: MORPHINE SULFATE INJECTION 2 MG/ML SYRG IV PRN ×2 (06:32→16:45)
[2021-08-31] MEDS: ALBUTEROL SULF 2.5 MG/0.5ML(0.5%) NEB SOLN NEB PRN (07:35)
[2021-08-31 08:30] LABS: INR 1.1 (0.9-1.15); Partial Thromboplastin Time 30.3 sec (23.6-33.0)
[2021-08-31 09:00] VITALS: BP 139/67
[2021-08-31] MEDS: cefTRIAXone 1GM/50ML D5W 50 ML IV SCH (09:11)
[2021-08-31] MEDS: ASPirin 81 mg TAB PO SCH (09:11)
[2021-08-31] MEDS: HEPARIN SODIUM (PORCINE) 5000 UNITS/ML 1ML VIAL SC SCH ×2 (09:12→21:17)
[2021-08-31] MEDS: CARVEDILOL 3.125 MG TAB PO SCH ×3 (09:12→22:00)
[2021-08-31] MEDS: PANTOPRAZOLE 40 MG TAB PO SCH (09:12)
[2021-08-31 13:00] VITALS: BP 114/57
[2021-08-31 17:00] VITALS: BP 128/61
[2021-08-31] MEDS: traZODone HCL 50 MG TAB PO SCH (21:07)
[2021-08-31] MEDS: guaiFENesin-DM 100/10mg/5ml SYR PO PRN (21:07)
[2021-08-31 21:39] VITALS: BP 98/52
[2021-09-01] MEDS: ACCU-CHEK COMFORT CURVE STRIP VI SCH ×4 (00:12→18:05)
[2021-09-01] MEDS: InsuLIN REG 1unit/0.01ml Soln (100units/ml) SC SCH ×4 (04:00→17:00)
[2021-09-01 05:00] VITALS: BP 116/64
[2021-09-01] MEDS ORDERED: SODIUM CHL 0.9% 1000 ML BAG XX ONE (07:00)
[2021-09-01 07:19] LABS: Basophils # (auto) 0 10 ^3/uL (0-0.2); Basophils % (auto) 0.7 % (0.0-2.0); Hematocrit 35.4 % (36.0-46.0); Hemoglobin 11.4 g/dL (12.2-16.2); Mean Corpuscular Hemoglobin 31.5 pg (28.0-32.0); Mean Corpuscular Hgb Conc. 32.3 g/dL (32.0-36.0); Mean Corpuscular Volume 97.4 fL (80.0-100.0); Monocytes # (auto) 0.4 10 ^3/uL (0-1.3); Monocytes % (auto) 8.1 % (0.0-12.0); Nucleated Red Blood Cells % 0.2 %; Red Blood Cells 3.64 10^6/uL (4.0-5.20); White Blood Cell 5.6 10^3/uL (4.4-10.8)
[2021-09-01 07:22] LABS: Eosinophils # (auto) 0.9 10 ^3/uL (0-0.8); Eosinophils % (auto) 14.3 % (0.0-7.0); Lymphocytes # (auto) 0.7 10 ^3/uL (0.4-5.4); Lymphocytes % (auto) 12.2 % (10.0-50.0); Neutrophils # (auto) 4.5 10 ^3/uL (1.6-8.6); Neutrophils % (auto) 65.7 % (37.0-80.0)
[2021-09-01] MEDS ORDERED: DEXTROSE (50%) 50ML SYRG IV PRN (07:30)
[2021-09-01 07:53] LABS: Magnesium 3.1 mg/dL (1.6-2.6); Potassium 5.2 mmol/L (3.5-5.1)
[2021-09-01 07:58] LABS: BUN/Creatinine Ratio 7.8
[2021-09-01 08:00] VITALS: BP 92/56
[2021-09-01 09:00] VITALS: BP 138/68
[2021-09-01] MEDS ORDERED: AZITHROMYCIN 250 MG TAB PO SCH (10:00)
[2021-09-01] MEDS: CALCIUM ACETATE 667 MG CAP PO SCH ×2 (12:00→18:00)
[2021-09-01] MEDS ORDERED: DOXY-286 PO (12:09)
[2021-09-01 13:00] VITALS: BP 130/74
[2021-09-01 15:17] VITALS: BP 92/56
[2021-09-01] MEDS: ASPirin 81 mg TAB PO SCH (16:33)
[2021-09-01] MEDS: PANTOPRAZOLE 40 MG TAB PO SCH (16:33)
[2021-09-01] MEDS: CARVEDILOL 3.125 MG TAB PO SCH (16:52)
[2021-09-01 17:00] VITALS: BP 120/63
== END 2021-09-01 19:03 | disposition home health service (06) | DRG 432 ==
LOC: ER 10:06 → TELE 20:09 → TELE-WESTW 22:30
PROVIDERS: ADMIT Family Medicine; ATTEND Internal Medicine
PROC: 05H933Z Insertion of Infusion Device into Right Brachial Vein, Percutaneous Approach (ICD-10-PCS; 2021-08-29)
PROC: B54MZZA Ultrasonography of Right Upper Extremity Veins, Guidance (ICD-10-PCS; 2021-08-29)
PROC: 5A1D70Z Performance of Urinary Filtration, Intermittent, Less than 6 Hours Per Day (ICD-10-PCS; 2021-08-29)
PROC: 0W9G3ZZ Drainage of Peritoneal Cavity, Percutaneous Approach (ICD-10-PCS; principal; 2021-08-31)
DX: K74.60 Unspecified cirrhosis of liver (principal); N18.6 End stage renal disease; I21.A1 Myocardial infarction type 2; J18.9 Pneumonia, unspecified organism; R18.8 Other ascites; E87.1 Hypo-osmolality and hyponatremia; I50.42 Chronic combined systolic (congestive) and diastolic (congestive) heart failure; I13.2 Hypertensive heart and chronic kidney disease with heart failure and with stage 5 chronic kidney disease, or end stage renal disease; I31.3 Pericardial effusion (noninflammatory); J40 Bronchitis, not specified as acute or chronic; E11.65 Type 2 diabetes mellitus with hyperglycemia; D63.8 Anemia in other chronic diseases classified elsewhere; E11.22 Type 2 diabetes mellitus with diabetic chronic kidney disease; I48.0 Paroxysmal atrial fibrillation; Z20.822 Contact with and (suspected) exposure to COVID-19; E11.319 Type 2 diabetes mellitus with unspecified diabetic retinopathy without macular edema; E78.5 Hyperlipidemia, unspecified; H54.3 Unqualified visual loss, both eyes; F32.A Depression, unspecified; M10.9 Gout, unspecified; H91.92 Unspecified hearing loss, left ear; I25.10 Atherosclerotic heart disease of native coronary artery without angina pectoris; Z82.3 Family history of stroke; Z82.49 Family history of ischemic heart disease and other diseases of the circulatory system; Z83.3 Family history of diabetes mellitus; Z86.73 Personal history of transient ischemic attack (TIA), and cerebral infarction without residual deficits; Z99.2 Dependence on renal dialysis; Z90.49 Acquired absence of other specified parts of digestive tract
CPT/HCPCS: 36415; 71045; 71046; 71260; 74176; 74177; 76942; 80048; 80053; 81001; 82728; 82962; 83540; 83550; 83690; 83735; 84443; 84484; 85025; 85610; 85730; 87081; 87086; 87340; 87426; 90935; 94640; 96365; 96375; 97116; 97530; G0378; J0696; J1815; J2405

== ENCOUNTER 2021-10-05 17:40 | Inpatient (IN) | payer MEDICARE, MEDICAID ==
[~2021-10-05] VITALS: Ht 162.6 cm; Wt 60.0 kg
[~2021-10-05 17:40] MED LIST changes: +BENZ100C97 PO; +DILT-29 PO; +DORZ2SOL18 EACHEYE; +DOXY-286 PO; -HYDR1TAB97 PO; -LACT10SO3 PO; +MISCTAB OR; -TRAM50TA2 PO
[2021-10-05] MEDS ORDERED: MORPHINE SULFATE 4 MG/ML SYR/VIAL IV ONE (20:15)
[2021-10-05] MEDS ORDERED: ONDANSETRON HCL 4 MG/2 ML VIAL IV ONE (20:15)
[2021-10-05] MEDS ORDERED: FUROSEMIDE 40 MG/4 ML VIAL IV ONE (22:30)
[2021-10-06 01:07] LABS: Albumin 2.3 g/dL (3.4-5.0); Calcium 7.9 mg/dL (8.5-10.1); Magnesium 2.9 mg/dL (1.6-2.6); Potassium 3.9 mmol/L (3.5-5.1)
[2021-10-06 01:18] LABS: BUN/Creatinine Ratio 8.3; Bilirubin, Total 0.6 mg/dL (0.2-1.0); Total Protein 7.1 g/dL (6.4-8.2)
[2021-10-06 02:44] LABS: Basophils # (auto) 0.1 10 ^3/uL (0-0.2); Basophils % (auto) 2.1 % (0.0-2.0); Eosinophils # (auto) 0.7 10 ^3/uL (0-0.8); Eosinophils % (auto) 11.5 % (0.0-7.0); Hematocrit 35.1 % (36.0-46.0); Hemoglobin 11.5 g/dL (12.2-16.2); Lymphocytes # (auto) 0.8 10 ^3/uL (0.4-5.4); Lymphocytes % (auto) 13.1 % (10.0-50.0); Mean Corpuscular Hemoglobin 32.7 pg (28.0-32.0); Mean Corpuscular Hgb Conc. 32.6 g/dL (32.0-36.0); Mean Corpuscular Volume 100.3 fL (80.0-100.0); Monocytes # (auto) 0.5 10 ^3/uL (0-1.3); Monocytes % (auto) 8.6 % (0.0-12.0); Neutrophils % (auto) 64.7 % (37.0-80.0); Red Cell Distribution Width 15.6 % (11.8-14.3); White Blood Cell 6.1 10^3/uL (4.4-10.8)
[2021-10-06 03:02] LABS: INR 1.12 (0.9-1.15)
[2021-10-06] MEDS ORDERED: MORPHINE SULFATE INJECTION 2 MG/ML SYRG IV PRN (05:45)
[2021-10-06] MEDS ORDERED: NITROGLYCERIN 0.4 MG SL TAB SL PRN (05:45)
[2021-10-06] MEDS ORDERED: DOCUSATE SOD 100 MG CAP PO PRN (05:45)
[2021-10-07] VITALS: BP 112/62
[2021-10-07] MEDS ORDERED: DEXTROSE (50%) 50ML SYRG IV PRN (01:30)
[2021-10-07] MEDS ORDERED: PNEUMOCOCCAL VACC POLYS 25 MCG/0.5 ML VIAL IM ONE (01:45)
[2021-10-07 05:00] VITALS: BP 93/55
[2021-10-07 05:41] LABS: Basophils # (auto) 0.1 10 ^3/uL (0-0.2); Basophils % (auto) 1.8 % (0.0-2.0); Eosinophils # (auto) 0.7 10 ^3/uL (0-0.8); Eosinophils % (auto) 12.1 % (0.0-7.0); Hematocrit 34.8 % (36.0-46.0); Hemoglobin 11.4 g/dL (12.2-16.2); Lymphocytes # (auto) 0.7 10 ^3/uL (0.4-5.4); Lymphocytes % (auto) 11.3 % (10.0-50.0); Mean Corpuscular Hemoglobin 32.6 pg (28.0-32.0); Mean Corpuscular Hgb Conc. 32.6 g/dL (32.0-36.0); Mean Corpuscular Volume 100.1 fL (80.0-100.0); Monocytes # (auto) 0.5 10 ^3/uL (0-1.3); Neutrophils # (auto) 3.8 10 ^3/uL (1.6-8.6); Neutrophils % (auto) 66.8 % (37.0-80.0); Nucleated Red Blood Cells % 0.1 %; Red Blood Cells 3.48 10^6/uL (4.0-5.20); Red Cell Distribution Width 15.3 % (11.8-14.3); White Blood Cell 5.8 10^3/uL (4.4-10.8)
[2021-10-07 06:02] LABS: Albumin 2.4 g/dL (3.4-5.0); BUN/Creatinine Ratio 8.7; Calcium 7.9 mg/dL (8.5-10.1); Potassium 4.5 mmol/L (3.5-5.1)
[2021-10-07 06:04] LABS: Bilirubin, Total 0.6 mg/dL (0.2-1.0); Total Protein 5.9 g/dL (6.4-8.2)
[2021-10-07] MEDS: ACCU-CHEK COMFORT CURVE STRIP VI SCH ×2 (06:06→12:55)
[2021-10-07] MEDS: InsuLIN REG 1unit/0.01ml Soln (100units/ml) SC SCH ×2 (06:06→11:30)
[2021-10-07 09:00] VITALS: BP 136/65
[2021-10-07 13:00] VITALS: BP 153/54
[2021-10-07 17:40] VITALS: BP 128/68
== END 2021-10-07 18:00 | disposition home health service (06) | DRG 432 ==
LOC: EDBD 17:40 → ER 17:40 → OVERFLOW 10-06 05:42 → WEST WING 10-06 23:57
PROVIDERS: ADMIT Internal Medicine; ATTEND Internal Medicine
PROC: 0W9G3ZZ Drainage of Peritoneal Cavity, Percutaneous Approach (ICD-10-PCS; principal; 2021-10-06)
DX: K74.60 Unspecified cirrhosis of liver (principal); I21.A1 Myocardial infarction type 2; N18.6 End stage renal disease; R18.8 Other ascites; E87.1 Hypo-osmolality and hyponatremia; I13.2 Hypertensive heart and chronic kidney disease with heart failure and with stage 5 chronic kidney disease, or end stage renal disease; I31.3 Pericardial effusion (noninflammatory); I42.5 Other restrictive cardiomyopathy; I48.92 Unspecified atrial flutter; I50.42 Chronic combined systolic (congestive) and diastolic (congestive) heart failure; D53.9 Nutritional anemia, unspecified; D63.1 Anemia in chronic kidney disease; E11.22 Type 2 diabetes mellitus with diabetic chronic kidney disease; E78.5 Hyperlipidemia, unspecified; E88.09 Other disorders of plasma-protein metabolism, not elsewhere classified; H54.8 Legal blindness, as defined in USA; I25.10 Atherosclerotic heart disease of native coronary artery without angina pectoris; R09.89 Other specified symptoms and signs involving the circulatory and respiratory systems; I27.20 Pulmonary hypertension, unspecified; Z99.2 Dependence on renal dialysis; F32.A Depression, unspecified; M10.9 Gout, unspecified; I48.0 Paroxysmal atrial fibrillation; Z79.01 Long term (current) use of anticoagulants; Z79.4 Long term (current) use of insulin; Z79.899 Other long term (current) drug therapy; Z82.3 Family history of stroke; Z82.49 Family history of ischemic heart disease and other diseases of the circulatory system; Z83.3 Family history of diabetes mellitus; Z86.73 Personal history of transient ischemic attack (TIA), and cerebral infarction without residual deficits; Z90.49 Acquired absence of other specified parts of digestive tract; Z98.61 Coronary angioplasty status
CPT/HCPCS: 36415; 71045; 74176; 76942; 80053; 82962; 83036; 83690; 83735; 84484; 85025; 85610; 85730; 87081; 87426; 93005; 93306; 96374; 96375; 96376; G0378; J2405

== ENCOUNTER → 2021-11-04 | Outpatient (CLI) | payer MEDICARE, MEDICAID ==
[~2021-11-04] MED LIST changes: +HYDR-4902 PO; +LACT10PA2 PO; +MIDO5TAB3 PO; +TRAM50TA2 PO
[2021-11-04 08:22] VITALS: BP 129/85
[2021-11-04 08:55] VITALS: BP 130/78
[2021-11-04 11:43] LABS: Basophils # (auto) 0.1 10 ^3/uL (0-0.2); Basophils % (auto) 1.1 % (0.0-2.0); Hematocrit 35.7 % (36.0-46.0); Hemoglobin 11.8 g/dL (12.2-16.2); INR 1.11 (0.9-1.15); Lymphocytes # (auto) 0.8 10 ^3/uL (0.4-5.4); Lymphocytes % (auto) 12.8 % (10.0-50.0); Mean Corpuscular Hemoglobin 32.8 pg (28.0-32.0); Mean Corpuscular Volume 99.4 fL (80.0-100.0); Monocytes # (auto) 0.5 10 ^3/uL (0-1.3); Monocytes % (auto) 8.4 % (0.0-12.0); Partial Thromboplastin Time 25.9 sec (23.6-33.0); Red Blood Cells 3.59 10^6/uL (4.0-5.20); Red Cell Distribution Width 13.7 % (11.8-14.3)
[2021-11-04 11:52] LABS: Eosinophils # (auto) 0.8 10 ^3/uL (0-0.8); Eosinophils % (auto) 14.4 % (0.0-7.0); Neutrophils # (auto) 3.9 10 ^3/uL (1.6-8.6); Neutrophils % (auto) 63.3 % (37.0-80.0)
[2021-11-04 12:01] LABS: BUN/Creatinine Ratio 11.1; Calcium 8.4 mg/dL (8.5-10.1); Potassium 4.5 mmol/L (3.5-5.1)
== END | disposition home or self-care (01) ==
LOC: Rad HDHVI 07:46
PROVIDERS: ATTEND Internal Medicine
DX: Z01.812 Encounter for preprocedural laboratory examination (principal); I13.0 Hypertensive heart and chronic kidney disease with heart failure and stage 1 through stage 4 chronic kidney disease, or unspecified chronic kidney disease; I50.9 Heart failure, unspecified; E11.22 Type 2 diabetes mellitus with diabetic chronic kidney disease; N18.30 Chronic kidney disease, stage 3 unspecified; E11.9 Type 2 diabetes mellitus without complications; I48.91 Unspecified atrial fibrillation
CPT/HCPCS: 36415; 71046; 80048; 85025; 85610; 85730; 93005; G0463

== ENCOUNTER 2021-11-06 07:13 | Day surgery (SDC) | payer MEDICARE, MEDICAID ==
[~2021-11-06] VITALS: Ht 157.5 cm; Wt 61.2 kg
[~2021-11-06 07:13] MED LIST changes: -BRIM0.2S17 EACHEYE; -DILT-29 PO; -DORZ2SOL18 EACHEYE; -DOXY-286 PO; -INS7030I SC; -MISCTAB OR; -PANT40TA2 PO
[2021-11-06] MEDS ORDERED: LIDOCAINE 2%HCL (LOCAL ANESTH.) INJ 20ML MDV ONE (12:57)
[2021-11-06] MEDS ORDERED: fentaNYL CITRATE 100 MCG/2 ML VL IV ONE (13:00)
[2021-11-06 13:05] VITALS: BP 110/77
[2021-11-06 13:35] VITALS: BP 109/77
[2021-11-06 14:05] VITALS: BP 117/82
[2021-11-06 15:05] VITALS: BP 109/68
[2021-11-06 16:05] VITALS: BP 153/90
[2021-11-06 17:45] VITALS: BP 155/96
[2021-11-06 19:53] LABS: Hematocrit 36.4 % (36.0-46.0); Hemoglobin 12.1 g/dL (12.2-16.2); Mean Corpuscular Hemoglobin 32.7 pg (28.0-32.0); Mean Corpuscular Hgb Conc. 33.3 g/dL (32.0-36.0); Mean Corpuscular Volume 98.3 fL (80.0-100.0); Red Cell Distribution Width 13.8 % (11.8-14.3); White Blood Cell 5.7 10^3/uL (4.4-10.8)
[2021-11-06 19:55] LABS: Band Neutrophils % (manual) 0; Basophils % (manual) 0 (0.0-2.0); Blast Cells 0; Metamyelocytes % 0; Myelocytes % 0; Promyelocytes % 0; Reactive Lymphocytes 0
[2021-11-06 20:01] LABS: Albumin 2.7 g/dL (3.4-5.0); Calcium 8.1 mg/dL (8.5-10.1); Potassium 5.3 mmol/L (3.5-5.1)
[2021-11-06 20:05] LABS: BUN/Creatinine Ratio 10.6; Bilirubin, Total 0.7 mg/dL (0.2-1.0); Total Protein 6.5 g/dL (6.4-8.2)
[2021-11-06 20:46] LABS: Eosinophils % (manual) 17 (0-7); Lymphocytes % (manual) 14 (10.0-50.0); Monocytes % (manual) 6 (0-12)
== END 2021-11-06 20:31 | disposition home or self-care (01) ==
LOC: CATH 07:13
PROVIDERS: ATTEND Internal Medicine
DX: I31.3 Pericardial effusion (noninflammatory) (principal); I20.9 Angina pectoris, unspecified; F41.9 Anxiety disorder, unspecified; F32.A Depression, unspecified; Z82.49 Family history of ischemic heart disease and other diseases of the circulatory system; Z95.5 Presence of coronary angioplasty implant and graft; Z83.3 Family history of diabetes mellitus; Z20.822 Contact with and (suspected) exposure to COVID-19
CPT/HCPCS: 33016; 36415; 71250; 74176; 80053; 82570; 83986; 84560; 85007; 85027; 87205; 89051; 93306; A4223; C1729; J7030; U0003; 10005; 76942; 77012; 99152

== ENCOUNTER → 2022-01-12 | Outpatient (CLI) | payer MEDICARE, MEDICAID | END | disposition home or self-care (01) | LOC: Rad HDHVI 08:08 | PROVIDERS: ATTEND Internal Medicine | DX: I08.2 Rheumatic disorders of both aortic and tricuspid valves (principal); I31.3 Pericardial effusion (noninflammatory); I42.9 Cardiomyopathy, unspecified; I10 Essential (primary) hypertension | CPT/HCPCS: 93306 ==

== ENCOUNTER 2022-01-22 08:26 | Inpatient (IN) | payer MEDICARE, MEDICAID ==
[2022-01-22] VITALS (30 sets, daily range): BP systolic 105–152; BP diastolic 61–87
[~2022-01-22] VITALS: Ht 160 cm; Wt 62.0 kg
[2022-01-22 09:46] LABS: Basophils # (auto) 0.1 10 ^3/uL (0-0.2); Basophils % (auto) 1.3 % (0.0-2.0); Eosinophils % (auto) 12.8 % (0.0-7.0); Hematocrit 31.9 % (36.0-46.0); Hemoglobin 10.6 g/dL (12.2-16.2); Lymphocytes # (auto) 0.5 10 ^3/uL (0.4-5.4); Lymphocytes % (auto) 7.2 % (10.0-50.0); Mean Corpuscular Hemoglobin 32.8 pg (28.0-32.0); Mean Corpuscular Hgb Conc. 33.2 g/dL (32.0-36.0); Mean Corpuscular Volume 98.7 fL (80.0-100.0); Monocytes # (auto) 0.6 10 ^3/uL (0-1.3); Monocytes % (auto) 8.6 % (0.0-12.0); Neutrophils # (auto) 5.3 10 ^3/uL (1.6-8.6); Neutrophils % (auto) 70.1 % (37.0-80.0); Red Blood Cells 3.23 10^6/uL (4.0-5.20); Red Cell Distribution Width 14.7 % (11.8-14.3); White Blood Cell 7.6 10^3/uL (4.4-10.8)
[2022-01-22 10:13] LABS: INR 1.19 (0.9-1.15); Partial Thromboplastin Time 28.2 sec (23.6-33.0)
[2022-01-22 10:26] LABS: Calcium 8.3 mg/dL (8.5-10.1); Magnesium 2.7 mg/dL (1.6-2.6)
[2022-01-22 10:31] LABS: Bilirubin, Total 0.8 mg/dL (0.2-1.0); Total Protein 6.9 g/dL (6.4-8.2)
[2022-01-22 10:34] LABS: Potassium 5.7 mmol/L (3.5-5.1)
[2022-01-22] MEDS ORDERED: MORPHINE SULFATE INJECTION 2 MG/ML SYRG IV PRN (11:45)
[2022-01-22] MEDS ORDERED: ONDANSETRON HCL 4 MG/2 ML VIAL IV PRN (11:45)
[2022-01-22] MEDS ORDERED: DEXTROSE (50%) 50ML SYRG IV PRN (11:45)
[2022-01-22] MEDS ORDERED: NITROGLYCERIN 0.4 MG SL TAB SL PRN (11:45)
[2022-01-22] MEDS: ACCU-CHEK COMFORT CURVE STRIP VI SCH ×2 (12:00→19:45)
[2022-01-22] MEDS ORDERED: SODIUM ZIRCONIUM CYCL 10 GM PAK PO ONE (12:00)
[2022-01-22] MEDS ORDERED: fentaNYL CITRATE 100 MCG/2 ML VL ONE (12:29)
[2022-01-22] MEDS ORDERED: MIDAZOLAM HCL 2MG/2ML 2ml VIAL (1mg/ml) ONE (12:29)
[2022-01-22] MEDS ORDERED: KETOROLAC TROMETH 30 MG/ML 1ML VIAL IV ONE (15:45)
[2022-01-22] MEDS ORDERED: KETOROLAC TROMETH 30 MG/ML 1ML VIAL ONE (15:50)
[2022-01-22] MEDS: InsuLIN REG 1unit/0.01ml Soln (100units/ml) SC SCH (19:47)
[2022-01-22] MEDS ORDERED: HYDROcodone-ACET 5/325MG TAB PO ONE (21:15)
[2022-01-22] MEDS: CARVEDILOL 3.125 MG TAB PO SCH (22:00)
[2022-01-23] VITALS (23 sets, daily range): BP systolic 96–134; BP diastolic 38–87
[2022-01-23] MEDS: ACCU-CHEK COMFORT CURVE STRIP VI SCH ×5 (00:30→21:48)
[2022-01-23] MEDS: InsuLIN REG 1unit/0.01ml Soln (100units/ml) SC SCH ×5 (00:40→23:18)
[2022-01-23] MEDS ORDERED: diphenhdrAMINE HCL 25 MG CAP PO ONE ×2 (00:53→01:00)
[2022-01-23] MEDS: CARVEDILOL 3.125 MG TAB PO SCH ×2 (10:00→21:48)
[2022-01-23 13:18] LABS: Cholesterol 97 mg/dL (< 200); HDL Cholesterol 58 mg/dL (40-59); LDL Cholesterol 27 mg/dL (< 100); Triglycerides 47 mg/dL (< 150)
[2022-01-23] MEDS ORDERED: METOCLOPRAMIDE HCL 10 MG TAB PO PRN (13:30)
[2022-01-23] MEDS ORDERED: HYDROcodone-ACET 5/325MG TAB PO PRN (13:30)
[2022-01-23 16:24] LABS: Hematocrit 34.7 % (36.0-46.0); Hemoglobin 11.7 g/dL (12.2-16.2); Mean Corpuscular Hemoglobin 32.8 pg (28.0-32.0); Mean Corpuscular Hgb Conc. 33.6 g/dL (32.0-36.0); Mean Corpuscular Volume 97.6 fL (80.0-100.0); Red Blood Cells 3.55 10^6/uL (4.0-5.20); Red Cell Distribution Width 14.5 % (11.8-14.3); White Blood Cell 9.3 10^3/uL (4.4-10.8)
[2022-01-23 16:27] LABS: Band Neutrophils % (manual) 0; Basophils % (manual) 0 (0.0-2.0); Blast Cells 0; Metamyelocytes % 0; Myelocytes % 0; Promyelocytes % 0; Reactive Lymphocytes 0
[2022-01-23 16:39] LABS: Alanine Aminotransferase 62 U/L (13-56); Albumin 2.6 g/dL (3.4-5.0); Anion Gap 11 (5-15); Aspartate Aminotransferase 68 U/L (15-37); BUN/Creatinine Ratio 10.2; Blood Urea Nitrogen 51 mg/dL (7-18); Calcium 7.5 mg/dL (8.5-10.1); Carbon Dioxide 27 mmol/L (21-32); Chloride 94 mmol/L (98-107); GFR African American 12 mL/min; GFR Non-African American 10 mL/min; Glucose 323 mg/dL (74-106); Potassium 4.5 mmol/L (3.5-5.1); Sodium 132 mmol/L (136-145)
[2022-01-23 16:42] LABS: Alkaline Phosphatase 591 U/L (45-117); Bilirubin, Total 1.1 mg/dL (0.2-1.0); Total Protein 6.7 g/dL (6.4-8.2)
[2022-01-23 16:50] LABS: Eosinophils % (manual) 4 (0-7); Lymphocytes % (manual) 10 (10.0-50.0); Monocytes % (manual) 11 (0-12)
[2022-01-23] MEDS: ATORVASTATIN 20 MG TAB PO SCH (21:48)
[2022-01-23] MEDS: HYDROcodone-ACET 5/325MG TAB PO PRN (21:50)
[2022-01-24] VITALS (24 sets, daily range): BP systolic 92–127; BP diastolic 46–76
[2022-01-24] MEDS: diphenhdrAMINE HCL 25 MG CAP PO PRN (03:56)
[2022-01-24 04:29] LABS: Basophils # (auto) 0.1 10 ^3/uL (0-0.2); Basophils % (auto) 1.2 % (0.0-2.0); Eosinophils # (auto) 0.8 10 ^3/uL (0-0.8); Hematocrit 30.8 % (36.0-46.0); Hemoglobin 10.4 g/dL (12.2-16.2); Lymphocytes % (auto) 12.8 % (10.0-50.0); Mean Corpuscular Hemoglobin 33.3 pg (28.0-32.0); Mean Corpuscular Hgb Conc. 33.9 g/dL (32.0-36.0); Mean Corpuscular Volume 98.3 fL (80.0-100.0); Monocytes # (auto) 0.9 10 ^3/uL (0-1.3); Monocytes % (auto) 11.1 % (0.0-12.0); Neutrophils # (auto) 5.1 10 ^3/uL (1.6-8.6); Neutrophils % (auto) 64.9 % (37.0-80.0); Red Blood Cells 3.13 10^6/uL (4.0-5.20); Red Cell Distribution Width 14.6 % (11.8-14.3); White Blood Cell 7.9 10^3/uL (4.4-10.8)
[2022-01-24 04:46] LABS: Calcium 7.6 mg/dL (8.5-10.1); Potassium 5.1 mmol/L (3.5-5.1)
[2022-01-24] MEDS: ACCU-CHEK COMFORT CURVE STRIP VI SCH ×4 (05:37→23:43)
[2022-01-24] MEDS: InsuLIN REG 1unit/0.01ml Soln (100units/ml) SC SCH ×4 (05:37→23:36)
[2022-01-24] MEDS ORDERED: CARVEDILOL 12.5 MG TAB PO ONE (09:45)
[2022-01-24] MEDS: CARVEDILOL 12.5 MG TAB PO SCH ×2 (09:54→21:24)
[2022-01-24] MEDS: FUROSEMIDE 40 MG TAB PO SCH (09:55)
[2022-01-24] MEDS: FERROUS SULFATE 325mg EC TAB PO SCH (09:55)
[2022-01-24] MEDS ORDERED: ENOXAPARIN SOD 40 MG/0.4 ML SYRINGE SC SCH (10:00)
[2022-01-24] MEDS: HYDROcodone-ACET 5/325MG TAB PO PRN (12:23)
[2022-01-24] MEDS: ATORVASTATIN 20 MG TAB PO SCH (21:25)
[2022-01-25] VITALS (26 sets, daily range): BP systolic 96–160; BP diastolic 54–77
[2022-01-25 04:33] LABS: Basophils # (auto) 0.1 10 ^3/uL (0-0.2); Basophils % (auto) 1.3 % (0.0-2.0); Eosinophils % (auto) 13.4 % (0.0-7.0); Hematocrit 31.2 % (36.0-46.0); Hemoglobin 10.6 g/dL (12.2-16.2); Lymphocytes # (auto) 0.8 10 ^3/uL (0.4-5.4); Lymphocytes % (auto) 11.1 % (10.0-50.0); Mean Corpuscular Hemoglobin 33.5 pg (28.0-32.0); Mean Corpuscular Hgb Conc. 33.9 g/dL (32.0-36.0); Mean Corpuscular Volume 98.9 fL (80.0-100.0); Monocytes # (auto) 0.8 10 ^3/uL (0-1.3); Monocytes % (auto) 10.4 % (0.0-12.0); Neutrophils # (auto) 4.8 10 ^3/uL (1.6-8.6); Neutrophils % (auto) 63.8 % (37.0-80.0); Red Blood Cells 3.16 10^6/uL (4.0-5.20); Red Cell Distribution Width 14.3 % (11.8-14.3); White Blood Cell 7.5 10^3/uL (4.4-10.8)
[2022-01-25 04:51] LABS: Albumin 2.5 g/dL (3.4-5.0); Calcium 7.4 mg/dL (8.5-10.1); Potassium 5.3 mmol/L (3.5-5.1)
[2022-01-25 04:53] LABS: Total Protein 6.6 g/dL (6.4-8.2)
[2022-01-25] MEDS: ACCU-CHEK COMFORT CURVE STRIP VI SCH ×4 (05:34→23:13)
[2022-01-25] MEDS: InsuLIN REG 1unit/0.01ml Soln (100units/ml) SC SCH ×4 (05:34→23:13)
[2022-01-25] MEDS ORDERED: SODIUM CHL 0.9% 1000 ML BAG XX ONE (08:45)
[2022-01-25] MEDS: ALBUMIN 25% 100 ML IV SCH ×2 (09:00→10:00)
[2022-01-25] MEDS: FUROSEMIDE 40 MG TAB PO SCH (10:18)
[2022-01-25] MEDS: FERROUS SULFATE 325mg EC TAB PO SCH (10:19)
[2022-01-25] MEDS: CARVEDILOL 12.5 MG TAB PO SCH ×2 (10:19→21:21)
[2022-01-25] MEDS: HYDROcodone-ACET 5/325MG TAB PO PRN ×2 (10:22→21:26)
[2022-01-25] MEDS ORDERED: EPOETIN ALFA-EPBX 4,000 UNIT/ML VIAL SC ONE (21:00)
[2022-01-25] MEDS: ATORVASTATIN 20 MG TAB PO SCH (21:20)
[2022-01-25] MEDS: diphenhdrAMINE HCL 25 MG CAP PO PRN (22:30)
[2022-01-26] VITALS: BP 111/66
[2022-01-26 04:00] VITALS: BP 95/40
[2022-01-26 04:49] LABS: BUN/Creatinine Ratio 8.2; Calcium 7.5 mg/dL (8.5-10.1); Potassium 4.1 mmol/L (3.5-5.1)
[2022-01-26] MEDS: InsuLIN REG 1unit/0.01ml Soln (100units/ml) SC SCH ×2 (05:16→12:00)
[2022-01-26] MEDS: ACCU-CHEK COMFORT CURVE STRIP VI SCH ×2 (05:17→12:00)
[2022-01-26] MEDS ORDERED: SODIUM CHL 0.9% 1000 ML BAG XX ONE (07:00)
[2022-01-26 08:00] VITALS: BP 159/98
[2022-01-26] MEDS ORDERED: DIGOXIN (250MCG/ML) 2 ML AMPULE IV ONE (08:30)
[2022-01-26] MEDS: FUROSEMIDE 40 MG TAB PO SCH (09:55)
[2022-01-26] MEDS: CARVEDILOL 12.5 MG TAB PO SCH (09:55)
[2022-01-26] MEDS: FERROUS SULFATE 325mg EC TAB PO SCH (09:56)
[2022-01-26 10:00] VITALS: BP 91/63
[2022-01-26] MEDS ORDERED: ALBUMIN 25% 100 ML IV PRN (10:00)
[2022-01-26] MEDS ORDERED: ALLOPURINOL 100 MG TAB PO SCH (10:00)
[2022-01-26] MEDS ORDERED: COLCHICINE 0.6 MG CAP PO SCH (10:00)
[2022-01-26 11:00] VITALS: BP 123/78
[2022-01-26 15:01] VITALS: BP 123/78
== END 2022-01-26 16:00 | disposition home or self-care (01) | DRG 280 ==
LOC: ER 08:26 → TELE 11:39 → ICU WEST 14:11
PROVIDERS: ADMIT Registered Nurse; ATTEND Internal Medicine Pulmonary Disease
PROC: 0W9D3ZZ Drainage of Pericardial Cavity, Percutaneous Approach (ICD-10-PCS; principal; 2022-01-22)
PROC: 5A1D70Z Performance of Urinary Filtration, Intermittent, Less than 6 Hours Per Day (ICD-10-PCS; 2022-01-22)
PROC: 5A1D70Z Performance of Urinary Filtration, Intermittent, Less than 6 Hours Per Day (ICD-10-PCS; 2022-01-25)
PROC: 5A1D70Z Performance of Urinary Filtration, Intermittent, Less than 6 Hours Per Day (ICD-10-PCS; 2022-01-26)
DX: I21.4 Non-ST elevation (NSTEMI) myocardial infarction (principal); I50.43 Acute on chronic combined systolic (congestive) and diastolic (congestive) heart failure; N18.6 End stage renal disease; I31.3 Pericardial effusion (noninflammatory); I13.2 Hypertensive heart and chronic kidney disease with heart failure and with stage 5 chronic kidney disease, or end stage renal disease; I42.9 Cardiomyopathy, unspecified; Z20.822 Contact with and (suspected) exposure to COVID-19; D63.1 Anemia in chronic kidney disease; E11.22 Type 2 diabetes mellitus with diabetic chronic kidney disease; E11.65 Type 2 diabetes mellitus with hyperglycemia; I25.10 Atherosclerotic heart disease of native coronary artery without angina pectoris; E78.5 Hyperlipidemia, unspecified; I48.91 Unspecified atrial fibrillation; K74.60 Unspecified cirrhosis of liver; Z86.73 Personal history of transient ischemic attack (TIA), and cerebral infarction without residual deficits; Z90.49 Acquired absence of other specified parts of digestive tract; Z83.3 Family history of diabetes mellitus; Z82.49 Family history of ischemic heart disease and other diseases of the circulatory system; Z82.3 Family history of stroke
CPT/HCPCS: 33016; 36415; 71045; 80048; 80053; 80061; 82962; 83036; 83735; 83880; 84443; 84484; 85007; 85025; 85027; 85379; 85610; 85730; 86850; 86900; 86901; 87081; 87205; 90935; 93005; 93306; 97110; 97116; 97163; 97530; 99152; 99153; G0378; J1815; J1885; J2250

== ENCOUNTER → 2022-05-13 | Outpatient (CLI) | payer MEDICARE, MEDICAID | END | disposition home or self-care (01) | LOC: Rad HDHVI 10:45 | PROVIDERS: ATTEND Internal Medicine | DX: I08.8 Other rheumatic multiple valve diseases (principal); R07.89 Other chest pain; R06.02 Shortness of breath; I50.9 Heart failure, unspecified | CPT/HCPCS: 93306 ==

== ENCOUNTER → 2022-08-03 | Outpatient (CLI) | payer MEDICARE, MEDICAID | END | disposition home or self-care (01) | LOC: Rad HDHVI 09:13 | PROVIDERS: ATTEND Internal Medicine | DX: I08.2 Rheumatic disorders of both aortic and tricuspid valves (principal); I11.9 Hypertensive heart disease without heart failure; I11.0 Hypertensive heart disease with heart failure; I50.9 Heart failure, unspecified | CPT/HCPCS: 93306 ==

== ENCOUNTER 2022-08-30 22:20 | Inpatient (IN) | payer MEDICARE, MEDICAID ==
[~2022-08-30] VITALS: Ht 162.6 cm; Wt 68.2 kg
[2022-08-30 23:56] LABS: Hematocrit 32.7 % (36.0-46.0); Hemoglobin 11.3 g/dL (12.2-16.2); Mean Corpuscular Hemoglobin 34.7 pg (28.0-32.0); Mean Corpuscular Hgb Conc. 34.5 g/dL (32.0-36.0); Mean Corpuscular Volume 100.6 fL (80.0-100.0); Red Blood Cells 3.25 10^6/uL (4.0-5.20); Red Cell Distribution Width 14.2 % (11.8-14.3); White Blood Cell 5.6 10^3/uL (4.4-10.8)
[2022-08-31] LABS: Band Neutrophils % (manual) 0
[2022-08-31 00:01] LABS: Basophils % (manual) 0 (0.0-2.0); Blast Cells 0; Metamyelocytes % 0; Myelocytes % 0; Promyelocytes % 0; Reactive Lymphocytes 0
[2022-08-31 00:06] LABS: INR 1.2 (0.9-1.15); Partial Thromboplastin Time 30.2 sec (24.6-33.4)
[2022-08-31 00:17] LABS: Albumin 3.2 g/dL (3.4-5.0); Calcium 7.6 mg/dL (8.5-10.1); Magnesium 2.1 mg/dL (1.6-2.6); Potassium 4.6 mmol/L (3.5-5.1)
[2022-08-31 00:20] LABS: Bilirubin, Total 0.8 mg/dL (0.2-1.0); Total Protein 6.9 g/dL (6.4-8.2)
[2022-08-31 01:32] LABS: Eosinophils % (manual) 16 (0-7); Lymphocytes % (manual) 5 (10.0-50.0); Monocytes % (manual) 8 (0-12)
[2022-08-31] MEDS ORDERED: DEXTROSE (50%) 50ML SYRG IV PRN (03:45)
[2022-08-31] MEDS ORDERED: ONDANSETRON HCL 4 MG/2 ML VIAL IV PRN (03:45)
[2022-08-31] MEDS ORDERED: NITROGLYCERIN 0.4 MG SL TAB SL PRN (03:45)
[2022-08-31] MEDS ORDERED: MORPHINE SULFATE INJ 2 MG/ml SYRG IV PRN (03:45)
[2022-08-31] MEDS: InsuLIN REG 1unit/0.01ml Soln (100units/ml) SC SCH ×4 (07:00→22:00)
[2022-08-31] MEDS: ACCU-CHEK COMFORT CURVE STRIP VI SCH ×4 (07:00→22:00)
[2022-08-31] MEDS: SEVELAMER 800 MG TAB PO SCH ×3 (08:00→23:27)
[2022-08-31] MEDS ORDERED: ASPirin 81 mg TAB PO SCH (10:00)
[2022-08-31] MEDS ORDERED: APIXABAN 2.5 MG TAB PO SCH (10:00)
[2022-08-31] MEDS ORDERED: CARVEDILOL 3.125 MG TAB PO SCH (10:00)
[2022-08-31] MEDS: ACETAMINOPHEN 325 MG TAB PO PRN (12:51)
[2022-08-31] MEDS ORDERED: DIGOXIN (250MCG/ML) 2 ML AMPULE IV ONE (14:15)
[2022-08-31] MEDS ORDERED: dilTIAZem 120MG ER CAP PO ONE (14:15)
[2022-08-31] MEDS ORDERED: ENOXAPARIN SOD 60 MG/0.6 ML SYRINGE SC SCH (22:00)
[2022-08-31] MEDS: ATORVASTATIN 20 MG TAB PO SCH (22:00)
[2022-09-01 01:00] VITALS: BP 150/40
[2022-09-01] MEDS: ACETAMINOPHEN 325 MG TAB PO PRN ×3 (03:13→16:19)
[2022-09-01 05:22] VITALS: BP 110/51
[2022-09-01 06:14] LABS: Hemoglobin 10.7 g/dL (12.2-16.2); White Blood Cell 6.2 10^3/uL (4.4-10.8)
[2022-09-01 06:17] LABS: Hematocrit 33.2 % (36.0-46.0); Mean Corpuscular Hemoglobin 33.3 pg (28.0-32.0); Mean Corpuscular Hgb Conc. 32.3 g/dL (32.0-36.0); Red Blood Cells 3.23 10^6/uL (4.0-5.20); Red Cell Distribution Width 14.5 % (11.8-14.3)
[2022-09-01] MEDS: InsuLIN REG 1unit/0.01ml Soln (100units/ml) SC SCH ×4 (06:28→21:40)
[2022-09-01] MEDS: ACCU-CHEK COMFORT CURVE STRIP VI SCH ×4 (06:28→21:41)
[2022-09-01 06:30] LABS: BUN/Creatinine Ratio 5.8; Calcium 7.8 mg/dL (8.5-10.1); Potassium 4.8 mmol/L (3.5-5.1)
[2022-09-01 06:32] LABS: Basophils % (manual) 0 (0.0-2.0); Blast Cells 0; Metamyelocytes % 0; Myelocytes % 0; Promyelocytes % 0
[2022-09-01] MEDS ORDERED: SODIUM CHL 0.9% 1000 ML BAG XX ONE (07:00)
[2022-09-01 08:12] LABS: Band Neutrophils % (manual) 2; Eosinophils % (manual) 13 (0-7); Lymphocytes % (manual) 10 (10.0-50.0); Monocytes % (manual) 6 (0-12); Reactive Lymphocytes 2
[2022-09-01] MEDS: SEVELAMER 800 MG TAB PO SCH ×3 (08:30→18:21)
[2022-09-01 09:00] VITALS: BP 103/40
[2022-09-01] MEDS: ALBUMIN 25% 100 ML IV PRN ×2 (10:28→11:48)
[2022-09-01] MEDS: MIDODRINE HCL 10 MG TAB PO SCH (11:07)
[2022-09-01 13:00] VITALS: BP 101/54
[2022-09-01] MEDS: ASPirin 81 mg TAB PO SCH (14:00)
[2022-09-01] MEDS: dilTIAZem 120MG ER CAP PO SCH (14:06)
[2022-09-01 16:38] VITALS: BP 120/51
[2022-09-01] MEDS ORDERED: EPOETIN ALFA-EPBX 10,000 UNIT/1ML VIAL SC ONE (21:00)
[2022-09-01] MEDS: ATORVASTATIN 20 MG TAB PO SCH (21:20)
[2022-09-01] MEDS: HEPARIN SODIUM (PORCINE) 5000 UNITS/ML 1ML VIAL SC SCH (21:23)
[2022-09-02] MEDS: ACETAMINOPHEN 325 MG TAB PO PRN ×2 (02:16→10:20)
[2022-09-02 04:56] VITALS: BP 116/78
[2022-09-02] MEDS: InsuLIN REG 1unit/0.01ml Soln (100units/ml) SC SCH ×4 (06:35→22:18)
[2022-09-02] MEDS: ACCU-CHEK COMFORT CURVE STRIP VI SCH ×4 (06:36→21:51)
[2022-09-02] MEDS: SEVELAMER 800 MG TAB PO SCH ×3 (08:00→18:16)
[2022-09-02 09:00] VITALS: BP 113/73
[2022-09-02] MEDS: ASPirin 81 mg TAB PO SCH (09:53)
[2022-09-02] MEDS: FUROSEMIDE 20 MG TAB PO SCH (09:54)
[2022-09-02] MEDS: DIGOXIN 0.125 MG TAB PO SCH (09:55)
[2022-09-02] MEDS: dilTIAZem 120MG ER CAP PO SCH (09:56)
[2022-09-02] MEDS: MIDODRINE HCL 10 MG TAB PO SCH (10:00)
[2022-09-02] MEDS: HEPARIN SODIUM (PORCINE) 5000 UNITS/ML 1ML VIAL SC SCH ×2 (10:05→21:50)
[2022-09-02 13:00] VITALS: BP 119/77
[2022-09-02 13:19] LABS: Hepatitis A Ab IgM Negative; Hepatitis B Core IgM Negative; Hepatitis C Antibody Negative (Negative)
[2022-09-02 16:50] VITALS: BP 132/52
[2022-09-02] MEDS: ATORVASTATIN 20 MG TAB PO SCH (21:47)
[2022-09-02 22:00] VITALS: BP 119/66
[2022-09-03 05:00] VITALS: BP 123/77
[2022-09-03] MEDS: InsuLIN REG 1unit/0.01ml Soln (100units/ml) SC SCH ×4 (05:42→22:37)
[2022-09-03] MEDS: ACCU-CHEK COMFORT CURVE STRIP VI SCH ×4 (05:43→22:36)
[2022-09-03] MEDS ORDERED: SODIUM CHL 0.9% 1000 ML BAG XX ONE (07:00)
[2022-09-03 07:06] LABS: Hemoglobin 10.4 g/dL (12.2-16.2)
[2022-09-03 07:09] LABS: Hematocrit 32.4 % (36.0-46.0)
[2022-09-03 07:24] LABS: % Iron Saturation 14.8 % (15-50)
[2022-09-03 08:00] VITALS: BP 118/74
[2022-09-03] MEDS: SEVELAMER 800 MG TAB PO SCH ×3 (08:53→18:00)
[2022-09-03] MEDS: FUROSEMIDE 20 MG TAB PO SCH (10:00)
[2022-09-03] MEDS: HEPARIN SODIUM (PORCINE) 5000 UNITS/ML 1ML VIAL SC SCH ×2 (10:00→22:36)
[2022-09-03] MEDS: dilTIAZem 120MG ER CAP PO SCH (10:00)
[2022-09-03] MEDS: ASPirin 81 mg TAB PO SCH (10:00)
[2022-09-03] MEDS: MIDODRINE HCL 10 MG TAB PO SCH (10:00)
[2022-09-03 10:24] LABS: INR 1.23 (0.9-1.15); Partial Thromboplastin Time 29.3 sec (24.6-33.4)
[2022-09-03 12:00] VITALS: BP 135/60
[2022-09-03 16:00] VITALS: BP 173/82
[2022-09-03 22:00] VITALS: BP 122/64
[2022-09-03] MEDS: ATORVASTATIN 20 MG TAB PO SCH (22:08)
[2022-09-04] MEDS: ACETAMINOPHEN 325 MG TAB PO PRN ×2 (01:33→11:22)
[2022-09-04 05:00] VITALS: BP 122/77
[2022-09-04] MEDS: ACCU-CHEK COMFORT CURVE STRIP VI SCH ×4 (06:51→22:11)
[2022-09-04] MEDS: InsuLIN REG 1unit/0.01ml Soln (100units/ml) SC SCH ×4 (06:51→22:12)
[2022-09-04] MEDS: SEVELAMER 800 MG TAB PO SCH ×3 (08:00→18:00)
[2022-09-04 09:00] VITALS: BP 137/79
[2022-09-04] MEDS: FUROSEMIDE 20 MG TAB PO SCH (11:09)
[2022-09-04] MEDS: ASPirin 81 mg TAB PO SCH (11:09)
[2022-09-04] MEDS: MIDODRINE HCL 10 MG TAB PO SCH (11:10)
[2022-09-04] MEDS: DIGOXIN 0.125 MG TAB PO SCH (11:10)
[2022-09-04] MEDS: dilTIAZem 120MG ER CAP PO SCH (11:11)
[2022-09-04] MEDS: HEPARIN SODIUM (PORCINE) 5000 UNITS/ML 1ML VIAL SC SCH ×2 (11:14→22:11)
[2022-09-04 13:00] VITALS: BP 129/78
[2022-09-04 16:58] VITALS: BP 91/47
[2022-09-04 21:47] VITALS: BP 134/77
[2022-09-04] MEDS: ATORVASTATIN 20 MG TAB PO SCH (22:11)
[2022-09-05] MEDS ORDERED: TEMAZEPAM 15 MG CAP PO ONE (01:00)
[2022-09-05 05:00] VITALS: BP 112/61
[2022-09-05] MEDS: ACCU-CHEK COMFORT CURVE STRIP VI SCH ×4 (06:34→22:08)
[2022-09-05] MEDS: InsuLIN REG 1unit/0.01ml Soln (100units/ml) SC SCH ×4 (06:34→22:08)
[2022-09-05 08:00] VITALS: BP 129/82
[2022-09-05] MEDS: SEVELAMER 800 MG TAB PO SCH ×3 (08:00→18:06)
[2022-09-05] MEDS: FUROSEMIDE 20 MG TAB PO SCH (10:03)
[2022-09-05] MEDS: ASPirin 81 mg TAB PO SCH (10:03)
[2022-09-05] MEDS: dilTIAZem 120MG ER CAP PO SCH (10:03)
[2022-09-05] MEDS: MIDODRINE HCL 10 MG TAB PO SCH (10:04)
[2022-09-05] MEDS: HEPARIN SODIUM (PORCINE) 5000 UNITS/ML 1ML VIAL SC SCH ×2 (10:07→22:08)
[2022-09-05 13:17] VITALS: BP 130/62
[2022-09-05] MEDS ORDERED: CETI5TAB6 (13:48)
[2022-09-05] MEDS ORDERED: DILT-29 PO (13:48)
[2022-09-05] MEDS ORDERED: PANT40TA57 (13:48)
[2022-09-05 21:22] VITALS: BP 104/60
[2022-09-05] MEDS: ATORVASTATIN 20 MG TAB PO SCH (22:06)
== END 2022-09-05 22:15 | disposition short-term general hospital (02) | DRG 280 ==
LOC: ER 22:21 → TELE 08-31 03:41 → TELE-WESTW 08-31 23:32
PROVIDERS: ADMIT Nurse Practitioner; ATTEND Student in an Organized Health Care Education/Training Program
PROC: 5A1D70Z Performance of Urinary Filtration, Intermittent, Less than 6 Hours Per Day (ICD-10-PCS; principal; 2022-09-01)
PROC: 5A1D70Z Performance of Urinary Filtration, Intermittent, Less than 6 Hours Per Day (ICD-10-PCS; 2022-09-03)
PROC: 0W9G3ZZ Drainage of Peritoneal Cavity, Percutaneous Approach (ICD-10-PCS; 2022-09-03)
DX: I31.39 Other pericardial effusion (noninflammatory) (principal); N18.6 End stage renal disease; I21.A1 Myocardial infarction type 2; I13.2 Hypertensive heart and chronic kidney disease with heart failure and with stage 5 chronic kidney disease, or end stage renal disease; I42.5 Other restrictive cardiomyopathy; I48.92 Unspecified atrial flutter; I50.32 Chronic diastolic (congestive) heart failure; R18.8 Other ascites; D63.8 Anemia in other chronic diseases classified elsewhere; E11.22 Type 2 diabetes mellitus with diabetic chronic kidney disease; Z20.822 Contact with and (suspected) exposure to COVID-19; E78.5 Hyperlipidemia, unspecified; H54.8 Legal blindness, as defined in USA; I27.20 Pulmonary hypertension, unspecified; I48.0 Paroxysmal atrial fibrillation; I25.10 Atherosclerotic heart disease of native coronary artery without angina pectoris; K74.60 Unspecified cirrhosis of liver; Z86.73 Personal history of transient ischemic attack (TIA), and cerebral infarction without residual deficits; Z83.3 Family history of diabetes mellitus; Z99.2 Dependence on renal dialysis; Z98.61 Coronary angioplasty status; Z82.49 Family history of ischemic heart disease and other diseases of the circulatory system; Z82.3 Family history of stroke; Z79.4 Long term (current) use of insulin
CPT/HCPCS: 36415; 71045; 73100; 73700; 76705; 76942; 80048; 80053; 80074; 82728; 82962; 83540; 83550; 83735; 83880; 83986; 84484; 85007; 85014; 85018; 85027; 85379; 85610; 85730; 87081; 87205; 87426; 89051; 90935; 93005; 93306; 93971; 96372; G0378; J1642; J1815; P9047

== ENCOUNTER 2022-09-16 18:00 | Inpatient (IN) | payer MEDICARE, MEDICAID ==
[~2022-09-16] VITALS: Ht 162.6 cm; Wt 72.1 kg
[~2022-09-16 18:00] MED LIST changes: +CETI5TAB6; +DILT-29 PO; +PANT40TA57
[2022-09-16] MEDS ORDERED: ONDANSETRON HCL 4 MG/2 ML VIAL IV ONE (20:45)
[2022-09-16] MEDS ORDERED: MAALOX PLUS or MAALOX 30 ML PO ONE (20:45)
[2022-09-16] MEDS ORDERED: SODIUM CHLORIDE 0.9% 250 ML IV ONE (20:45)
[2022-09-16] MEDS ORDERED: DONNATAL 5ml ORAL Elix (BELLADONNA ALK-PHENOBARB) PO ONE (20:45)
[2022-09-16] MEDS ORDERED: LIDOCAINE VISCOUS 2% 15ML UD PO ONE (20:45)
[2022-09-16 21:53] LABS: Basophils # (auto) 0.1 10 ^3/uL (0-0.2); Basophils % (auto) 1.8 % (0.0-2.0); Eosinophils # (auto) 0.8 10 ^3/uL (0-0.8); Eosinophils % (auto) 12.1 % (0.0-7.0); Hematocrit 35.9 % (36.0-46.0); Hemoglobin 11.8 g/dL (12.2-16.2); Lymphocytes # (auto) 0.7 10 ^3/uL (0.4-5.4); Mean Corpuscular Volume 100.1 fL (80.0-100.0); Monocytes # (auto) 0.5 10 ^3/uL (0-1.3); Monocytes % (auto) 7.2 % (0.0-12.0); Neutrophils # (auto) 4.8 10 ^3/uL (1.6-8.6); Neutrophils % (auto) 68.9 % (37.0-80.0); Red Blood Cells 3.59 10^6/uL (4.0-5.20); Red Cell Distribution Width 14.1 % (11.8-14.3); White Blood Cell 6.9 10^3/uL (4.4-10.8)
[2022-09-16 22:02] LABS: INR 1.17 (0.9-1.15); Partial Thromboplastin Time 24.2 sec (24.6-33.4)
[2022-09-16 23:03] LABS: Calcium 8.3 mg/dL (8.5-10.1); Potassium 4.9 mmol/L (3.5-5.1)
[2022-09-16 23:07] LABS: BUN/Creatinine Ratio 7.7; Bilirubin, Total 0.5 mg/dL (0.2-1.0); Total Protein 6.6 g/dL (6.4-8.2)
[2022-09-16] MEDS ORDERED: SODIUM CHLORIDE 0.9% 1,000 ML IV SCH (23:15)
[2022-09-16] MEDS ORDERED: MAALOX PLUS or MAALOX 30 ML PO PRN (23:15)
[2022-09-16] MEDS ORDERED: DOCUSATE SOD 100 MG CAP PO PRN (23:15)
[2022-09-16] MEDS ORDERED: LORazepam 0.5 MG TAB PO PRN (23:15)
[2022-09-16] MEDS ORDERED: ACETAMINOPHEN 325 MG TAB PO PRN (23:15)
[2022-09-16] MEDS ORDERED: MORPHINE SULFATE INJ 2 MG/ml SYRG IV PRN (23:15)
[2022-09-16] MEDS ORDERED: TEMAZEPAM 15 MG CAP PO PRN (23:15)
[2022-09-17 06:55] LABS: Basophils # (auto) 0.1 10 ^3/uL (0-0.2); Eosinophils # (auto) 0.5 10 ^3/uL (0-0.8); Hematocrit 33.4 % (36.0-46.0); Nucleated Red Blood Cells % 0.1 %; White Blood Cell 5.9 10^3/uL (4.4-10.8)
[2022-09-17 06:57] LABS: Basophils % (auto) 1.9 % (0.0-2.0); Eosinophils % (auto) 8.4 % (0.0-7.0); Hemoglobin 10.9 g/dL (12.2-16.2); Lymphocytes % (auto) 16.2 % (10.0-50.0); Mean Corpuscular Hemoglobin 33.8 pg (28.0-32.0); Mean Corpuscular Hgb Conc. 32.8 g/dL (32.0-36.0); Mean Corpuscular Volume 102.9 fL (80.0-100.0); Monocytes # (auto) 0.5 10 ^3/uL (0-1.3); Monocytes % (auto) 7.6 % (0.0-12.0); Neutrophils # (auto) 3.9 10 ^3/uL (1.6-8.6); Neutrophils % (auto) 65.9 % (37.0-80.0); Red Blood Cells 3.24 10^6/uL (4.0-5.20); Red Cell Distribution Width 14.1 % (11.8-14.3)
[2022-09-17 07:01] LABS: Calcium 8.5 mg/dL (8.5-10.1); Potassium 5.2 mmol/L (3.5-5.1)
[2022-09-17 07:04] LABS: BUN/Creatinine Ratio 8.7
[2022-09-17 12:42] VITALS: BP 123/66
[2022-09-17] MEDS ORDERED: DEXTROSE (50%) 50ML SYRG IV PRN (14:30)
[2022-09-17 17:00] VITALS: BP 148/93
[2022-09-17] MEDS: MIDODRINE HCL 10 MG TAB PO SCH (18:00)
[2022-09-17] MEDS: ACCU-CHEK COMFORT CURVE STRIP VI SCH ×2 (18:41→21:01)
[2022-09-17] MEDS: InsuLIN REG 1unit/0.01ml Soln (100units/ml) SC SCH ×2 (18:43→21:10)
[2022-09-17] MEDS: ATORVASTATIN 20 MG TAB PO SCH (21:01)
[2022-09-17 22:00] VITALS: BP 153/84
[2022-09-18] MEDS: HYDROcodone-ACET 5/325MG TAB PO PRN ×2 (03:49→22:48)
[2022-09-18 05:00] VITALS: BP 126/73
[2022-09-18 06:18] LABS: Basophils # (auto) 0.1 10 ^3/uL (0-0.2); Eosinophils # (auto) 0.7 10 ^3/uL (0-0.8); Lymphocytes # (auto) 0.9 10 ^3/uL (0.4-5.4); Monocytes # (auto) 0.5 10 ^3/uL (0-1.3)
[2022-09-18 06:22] LABS: Basophils % (auto) 2.1 % (0.0-2.0); Hematocrit 32.1 % (36.0-46.0); Lymphocytes % (auto) 13.5 % (10.0-50.0); Mean Corpuscular Hemoglobin 34.5 pg (28.0-32.0); Mean Corpuscular Hgb Conc. 34.2 g/dL (32.0-36.0); Monocytes % (auto) 8.2 % (0.0-12.0); Neutrophils # (auto) 4.3 10 ^3/uL (1.6-8.6); Neutrophils % (auto) 66.2 % (37.0-80.0); Nucleated Red Blood Cells % 0.1 %; Red Blood Cells 3.18 10^6/uL (4.0-5.20); Red Cell Distribution Width 13.7 % (11.8-14.3); White Blood Cell 6.6 10^3/uL (4.4-10.8)
[2022-09-18] MEDS: ACCU-CHEK COMFORT CURVE STRIP VI SCH ×4 (06:22→22:20)
[2022-09-18] MEDS: InsuLIN REG 1unit/0.01ml Soln (100units/ml) SC SCH ×4 (06:22→22:23)
[2022-09-18] MEDS: MIDODRINE HCL 10 MG TAB PO SCH ×3 (06:22→18:09)
[2022-09-18 06:25] LABS: Potassium 5.4 mmol/L (3.5-5.1)
[2022-09-18 06:37] LABS: BUN/Creatinine Ratio 8.8; Calcium 8.4 mg/dL (8.5-10.1)
[2022-09-18 06:40] LABS: Bilirubin, Total 0.5 mg/dL (0.2-1.0); Total Protein 6.5 g/dL (6.4-8.2)
[2022-09-18] MEDS ORDERED: SODIUM CHL 0.9% 1000 ML BAG XX ONE (07:00)
[2022-09-18] MEDS: APIXABAN 2.5 MG TAB PO SCH (12:17)
[2022-09-18] MEDS: PANTOPRAZOLE 40 MG TAB PO SCH (12:17)
[2022-09-18 13:02] VITALS: BP 107/57
[2022-09-18 16:33] VITALS: BP 116/65
[2022-09-18] MEDS ORDERED: EPOETIN ALFA-EPBX 10,000 UNIT/1ML VIAL SC ONE (21:00)
[2022-09-18 22:00] VITALS: BP 138/77
[2022-09-18] MEDS: ATORVASTATIN 20 MG TAB PO SCH (22:20)
[2022-09-19 05:00] VITALS: BP 130/76
[2022-09-19] MEDS: MIDODRINE HCL 10 MG TAB PO SCH ×3 (06:00→16:33)
[2022-09-19] MEDS: InsuLIN REG 1unit/0.01ml Soln (100units/ml) SC SCH ×4 (06:34→22:54)
[2022-09-19] MEDS: ACCU-CHEK COMFORT CURVE STRIP VI SCH ×4 (06:34→21:35)
[2022-09-19] MEDS: HYDROcodone-ACET 5/325MG TAB PO PRN (06:35)
[2022-09-19 09:00] VITALS: BP 137/74
[2022-09-19] MEDS: ONDANSETRON HCL 4 MG/2 ML VIAL IV PRN ×2 (10:00→16:34)
[2022-09-19] MEDS: APIXABAN 2.5 MG TAB PO SCH (10:33)
[2022-09-19] MEDS: PANTOPRAZOLE 40 MG TAB PO SCH (10:33)
[2022-09-19 13:00] VITALS: BP 129/75
[2022-09-19 17:00] VITALS: BP 125/70
[2022-09-19] MEDS: ATORVASTATIN 20 MG TAB PO SCH (21:32)
[2022-09-19 22:00] VITALS: BP 114/58
[2022-09-20 05:00] VITALS: BP 114/69
[2022-09-20] MEDS: MIDODRINE HCL 10 MG TAB PO SCH ×2 (06:52→12:03)
[2022-09-20] MEDS: InsuLIN REG 1unit/0.01ml Soln (100units/ml) SC SCH ×2 (06:56→12:02)
[2022-09-20] MEDS: ACCU-CHEK COMFORT CURVE STRIP VI SCH ×2 (06:57→12:00)
[2022-09-20 08:00] VITALS: BP 119/77
[2022-09-20 09:23] VITALS: BP 119/77
[2022-09-20] MEDS: PANTOPRAZOLE 40 MG TAB PO SCH (09:45)
[2022-09-20] MEDS: APIXABAN 2.5 MG TAB PO SCH (09:45)
[2022-09-20 12:29] VITALS: BP 119/77
[2022-09-20 12:41] VITALS: BP 143/76
[2022-09-21] MEDS ORDERED: SODIUM CHL 0.9% 1000 ML BAG XX ONE (07:00)
[2022-09-21] MEDS ORDERED: EPOETIN ALFA-EPBX 10,000 UNIT/1ML VIAL SC ONE (21:00)
== END 2022-09-20 12:55 | disposition home or self-care (01) | DRG 312 ==
LOC: ER 18:00 → EDBD 18:00 → EDUNIT# 18:00 → TELE 23:19 → TELE-EAST 09-17 10:31
PROVIDERS: ADMIT Hospitalist; ATTEND Nurse Practitioner Acute Care
PROC: 5A1D70Z Performance of Urinary Filtration, Intermittent, Less than 6 Hours Per Day (ICD-10-PCS; principal; 2022-09-18)
DX: I95.2 Hypotension due to drugs (principal); N18.6 End stage renal disease; I48.92 Unspecified atrial flutter; I13.2 Hypertensive heart and chronic kidney disease with heart failure and with stage 5 chronic kidney disease, or end stage renal disease; I50.30 Unspecified diastolic (congestive) heart failure; D63.1 Anemia in chronic kidney disease; H54.8 Legal blindness, as defined in USA; I27.20 Pulmonary hypertension, unspecified; Z20.822 Contact with and (suspected) exposure to COVID-19; E11.22 Type 2 diabetes mellitus with diabetic chronic kidney disease; I25.10 Atherosclerotic heart disease of native coronary artery without angina pectoris; Z99.2 Dependence on renal dialysis; Z82.3 Family history of stroke; Z82.49 Family history of ischemic heart disease and other diseases of the circulatory system; Z83.3 Family history of diabetes mellitus; Z86.73 Personal history of transient ischemic attack (TIA), and cerebral infarction without residual deficits; T46.5X5A Adverse effect of other antihypertensive drugs, initial encounter
CPT/HCPCS: 36415; 70450; 71045; 76705; 80048; 80053; 81001; 82962; 84484; 85025; 85610; 85730; 87081; 87426; 90935; 93005; 96360; 96361; G0378; J1642; J1815; J2405

== ENCOUNTER → 2022-09-21 | Outpatient (CLI) | payer MEDICARE, MEDICAID | END | disposition home or self-care (01) | LOC: Rad HDHVI 09:49 | PROVIDERS: ATTEND Internal Medicine | DX: M25.561 Pain in right knee (principal) | CPT/HCPCS: 73562 ==

== ENCOUNTER → 2022-12-03 | Outpatient (CLI) | payer MEDICARE, MEDICAID ==
[~2022-12-03] MED LIST changes: +IOHEXOL 350 MG/ML 100ML IJ ONE
[2022-12-03 08:50] VITALS: BP 111/69
[2022-12-03 09:15] VITALS: BP 112/68
== END | disposition home or self-care (01) ==
LOC: Rad HDHVI 08:23
PROVIDERS: ATTEND Internal Medicine
DX: I70.201 Unspecified atherosclerosis of native arteries of extremities, right leg (principal); R60.0 Localized edema; M79.661 Pain in right lower leg
CPT/HCPCS: 73706; G0463; Q9967

== ENCOUNTER 2023-03-01 10:58 | Inpatient (IN) | payer MEDICARE, MEDICAID ==
[~2023-03-01] VITALS: Ht 162.6 cm; Wt 56.0 kg
[~2023-03-01 10:58] MED LIST changes: -FERR-20 PO; +FERR325T24 PO; -IOHEXOL 350 MG/ML 100ML IJ ONE; -LISI20TA28 PO; +LISI20TA56 PO; -MIDO5TAB3 PO; +MIDO5TAB4 PO
[2023-03-01] MEDS ORDERED: ONDANSETRON HCL 4 MG/2 ML VIAL IV ONE (11:30)
[2023-03-01] MEDS ORDERED: MORPHINE SULFATE 4 MG/ML SYR/VIAL IV ONE (11:30)
[2023-03-01 11:52] LABS: Basophils # (auto) 0.1 10 ^3/uL (0-0.2); Eosinophils # (auto) 0.9 10 ^3/uL (0-0.8); Hemoglobin 12.8 g/dL (12.2-16.2); Lymphocytes # (auto) 0.9 10 ^3/uL (0.4-5.4); Monocytes # (auto) 0.5 10 ^3/uL (0-1.3); Monocytes % (auto) 6.9 % (0.0-12.0); Nucleated Red Blood Cells % 0.1 %
[2023-03-01 11:53] LABS: Eosinophils % (auto) 12.4 % (0.0-7.0); Hematocrit 38.7 % (36.0-46.0); Lymphocytes % (auto) 12.4 % (10.0-50.0); Mean Corpuscular Hemoglobin 33.9 pg (28.0-32.0); Mean Corpuscular Hgb Conc. 33.1 g/dL (32.0-36.0); Mean Corpuscular Volume 102.3 fL (80.0-100.0); Neutrophils % (auto) 66.3 % (37.0-80.0); Red Blood Cells 3.78 10^6/uL (4.0-5.20); Red Cell Distribution Width 13.9 % (11.8-14.3); White Blood Cell 7.5 10^3/uL (4.4-10.8)
[2023-03-01 12:06] LABS: INR 1.13 (0.9-1.15)
[2023-03-01 12:09] LABS: Albumin 3.2 g/dL (3.4-5.0); Calcium 8.3 mg/dL (8.5-10.1); Potassium 3.9 mmol/L (3.5-5.1)
[2023-03-01 12:13] LABS: BUN/Creatinine Ratio 6.7 (10.0-20.0); Bilirubin, Total 0.9 mg/dL (0.2-1.0); Total Protein 7.1 g/dL (6.4-8.2)
[2023-03-01] MEDS ORDERED: MORPHINE SULFATE INJ 2 MG/ml SYRG IV ONE (13:15)
[2023-03-01] MEDS ORDERED: ACETAMINOPHEN 325 MG TAB PO PRN (15:30)
[2023-03-01] MEDS ORDERED: PANTOPRAZOLE 40 MG/10 ML VIAL INJ IV ONE (16:30)
[2023-03-01] MEDS ORDERED: DEXTROSE (50%) 50ML SYRG IV PRN (16:30)
[2023-03-01] MEDS: ACCU-CHEK COMFORT CURVE STRIP VI SCH ×2 (17:00→21:32)
[2023-03-01] MEDS: InsuLIN REG 1unit/0.01ml Soln (100units/ml) SC SCH ×2 (17:50→21:40)
[2023-03-01] MEDS: SEVELAMER 800 MG TAB PO SCH (17:50)
[2023-03-01] MEDS: ATORVASTATIN 20 MG TAB PO SCH (21:37)
[2023-03-01] MEDS: HYDROcodone-ACET 5/325MG TAB PO PRN (21:37)
[2023-03-01] MEDS: LACTULOSE 20Gm/30ML SOLN PO SCH (21:38)
[2023-03-01] MEDS: AMITRIPTYLINE HCL 25 MG TAB PO SCH (21:38)
[2023-03-01] MEDS: SILDENAFIL CITRATE 20 MG TAB PO SCH (22:00)
[2023-03-01] MEDS ORDERED: ALBUMIN 5% 250 ML IV ONE (22:30)
[2023-03-02] VITALS (28 sets, daily range): BP systolic 79–146; BP diastolic 43–76
[2023-03-02] MEDS ORDERED: PHENYLEPHRINE IV 250 ML IV ONE (01:27)
[2023-03-02] MEDS: PHENYLEPHRINE IV 250 ML IV SCH ×4 (01:34→20:45)
[2023-03-02] MEDS: SILDENAFIL CITRATE 20 MG TAB PO SCH ×3 (06:00→23:03)
[2023-03-02 06:30] LABS: Basophils # (auto) 0.2 10 ^3/uL (0-0.2); Basophils % (auto) 1.6 % (0.0-2.0); Eosinophils # (auto) 1.4 10 ^3/uL (0-0.8); Eosinophils % (auto) 14.5 % (0.0-7.0); Hematocrit 36.2 % (36.0-46.0); Hemoglobin 12.2 g/dL (12.2-16.2); Lymphocytes # (auto) 1.3 10 ^3/uL (0.4-5.4); Lymphocytes % (auto) 13.4 % (10.0-50.0); Mean Corpuscular Hemoglobin 33.8 pg (28.0-32.0); Mean Corpuscular Hgb Conc. 33.6 g/dL (32.0-36.0); Mean Corpuscular Volume 100.6 fL (80.0-100.0); Monocytes # (auto) 0.6 10 ^3/uL (0-1.3); Monocytes % (auto) 6.6 % (0.0-12.0); Neutrophils # (auto) 6.1 10 ^3/uL (1.6-8.6); Neutrophils % (auto) 63.9 % (37.0-80.0); White Blood Cell 9.5 10^3/uL (4.4-10.8)
[2023-03-02 06:41] LABS: Potassium 3.6 mmol/L (3.5-5.1)
[2023-03-02] MEDS: ACCU-CHEK COMFORT CURVE STRIP VI SCH ×4 (06:42→23:05)
[2023-03-02] MEDS: InsuLIN REG 1unit/0.01ml Soln (100units/ml) SC SCH ×4 (06:44→23:17)
[2023-03-02] MEDS: LACTULOSE 20Gm/30ML SOLN PO SCH ×3 (06:45→23:05)
[2023-03-02 06:49] LABS: Albumin 3.1 g/dL (3.4-5.0); BUN/Creatinine Ratio 6.6 (10.0-20.0); Bilirubin, Total 0.6 mg/dL (0.2-1.0); Calcium 7.8 mg/dL (8.5-10.1); Total Protein 6.6 g/dL (6.4-8.2)
[2023-03-02] MEDS ORDERED: SODIUM CHL 0.9% 1000 ML BAG XX ONE (07:00)
[2023-03-02] MEDS: MORPHINE SULFATE INJ 2 MG/ml SYRG IV PRN ×2 (09:37→16:22)
[2023-03-02] MEDS: APIXABAN 2.5 MG TAB PO SCH (09:58)
[2023-03-02] MEDS: dilTIAZem 120MG ER CAP PO SCH (09:58)
[2023-03-02] MEDS: FERROUS SULFATE 325mg EC TAB PO SCH (09:58)
[2023-03-02] MEDS: METOCLOPRAMIDE HCL 10 MG TAB PO SCH (09:58)
[2023-03-02] MEDS: SEVELAMER 800 MG TAB PO SCH ×3 (09:58→17:39)
[2023-03-02] MEDS: OMEGA PO SCH (09:59)
[2023-03-02] MEDS: FATTY ACIDS PO SCH (09:59)
[2023-03-02] MEDS ORDERED: MAGNESIUM OXIDE 250 MG PO SCH (10:00)
[2023-03-02] MEDS ORDERED: PANTOPRAZOLE 40 MG/10 ML VIAL INJ IV SCH (10:00)
[2023-03-02] MEDS ORDERED: PANTOPRAZOLE 40 MG TAB PO SCH (10:00)
[2023-03-02] MEDS: HYDROcodone-ACET 5/325MG TAB PO PRN (14:12)
[2023-03-02] MEDS: ATORVASTATIN 20 MG TAB PO SCH (23:04)
[2023-03-03] VITALS (78 sets, daily range): BP systolic 75–133; BP diastolic 39–83
[2023-03-03] MEDS: AMITRIPTYLINE HCL 25 MG TAB PO SCH ×2 (00:30→21:50)
[2023-03-03] MEDS: HYDROcodone-ACET 5/325MG TAB PO PRN ×3 (00:31→22:54)
[2023-03-03] MEDS: PHENYLEPHRINE IV 250 ML IV SCH ×6 (03:22→16:34)
[2023-03-03 05:14] LABS: Potassium 4.2 mmol/L (3.5-5.1)
[2023-03-03 05:19] LABS: BUN/Creatinine Ratio 5.6 (10.0-20.0); Bilirubin, Total 0.6 mg/dL (0.2-1.0); Total Protein 7.2 g/dL (6.4-8.2)
[2023-03-03 05:22] LABS: Hematocrit 38.6 % (36.0-46.0); Hemoglobin 12.9 g/dL (12.2-16.2); Mean Corpuscular Hemoglobin 34.1 pg (28.0-32.0); Mean Corpuscular Hgb Conc. 33.3 g/dL (32.0-36.0); Mean Corpuscular Volume 102.4 fL (80.0-100.0); Red Blood Cells 3.78 10^6/uL (4.0-5.20); Red Cell Distribution Width 13.5 % (11.8-14.3); White Blood Cell 13.1 10^3/uL (4.4-10.8)
[2023-03-03 05:24] LABS: Band Neutrophils % (manual) 0; Basophils % (manual) 0 (0.0-2.0); Blast Cells 0; Metamyelocytes % 0; Myelocytes % 0; Promyelocytes % 0; Reactive Lymphocytes 0
[2023-03-03] MEDS ORDERED: ALBUMIN 5% 250 ML IV ONE (05:45)
[2023-03-03] MEDS: SILDENAFIL CITRATE 20 MG TAB PO SCH (06:00)
[2023-03-03] MEDS: ACCU-CHEK COMFORT CURVE STRIP VI SCH ×4 (06:10→22:00)
[2023-03-03] MEDS: InsuLIN REG 1unit/0.01ml Soln (100units/ml) SC SCH ×4 (06:11→22:07)
[2023-03-03] MEDS: LACTULOSE 20Gm/30ML SOLN PO SCH ×4 (06:12→21:49)
[2023-03-03] MEDS: SEVELAMER 800 MG TAB PO SCH ×2 (08:08→08:49)
[2023-03-03 08:35] LABS: Eosinophils % (manual) 13 (0-7); Lymphocytes % (manual) 18 (10.0-50.0); Monocytes % (manual) 4 (0-12)
[2023-03-03] MEDS: dilTIAZem 120MG ER CAP PO SCH (10:00)
[2023-03-03] MEDS: OMEGA PO SCH (10:00)
[2023-03-03] MEDS: FATTY ACIDS PO SCH (10:00)
[2023-03-03] MEDS: METOCLOPRAMIDE HCL 10 MG TAB PO SCH (10:05)
[2023-03-03] MEDS: APIXABAN 2.5 MG TAB PO SCH (10:05)
[2023-03-03] MEDS: FERROUS SULFATE 325mg EC TAB PO SCH (10:05)
[2023-03-03] MEDS: MIDODRINE HCL 10 MG TAB PO SCH ×2 (11:46→17:39)
[2023-03-03] MEDS: cefTRIAXone 1GM/50ML D5W 50 ML IV SCH (11:47)
[2023-03-03] MEDS ORDERED: MIDODRINE HCL 10 MG TAB PO SCH (12:00)
[2023-03-03] MEDS: ATORVASTATIN 20 MG TAB PO SCH (21:49)
[2023-03-04] VITALS (82 sets, daily range): BP systolic 89–185; BP diastolic 50–106
[2023-03-04] MEDS: PHENYLEPHRINE IV 250 ML IV SCH ×2 (00:49→08:59)
[2023-03-04 04:48] LABS: Eosinophils # (auto) 1.2 10 ^3/uL (0-0.8); Neutrophils # (auto) 9.9 10 ^3/uL (1.6-8.6)
[2023-03-04 04:52] LABS: Basophils # (auto) 0.1 10 ^3/uL (0-0.2); Basophils % (auto) 0.4 % (0.0-2.0); Eosinophils % (auto) 9.1 % (0.0-7.0); Hematocrit 36.7 % (36.0-46.0); Lymphocytes # (auto) 0.9 10 ^3/uL (0.4-5.4); Mean Corpuscular Hemoglobin 33.7 pg (28.0-32.0); Mean Corpuscular Hgb Conc. 32.6 g/dL (32.0-36.0); Mean Corpuscular Volume 103.4 fL (80.0-100.0); Neutrophils % (auto) 75.5 % (37.0-80.0); Red Blood Cells 3.55 10^6/uL (4.0-5.20); Red Cell Distribution Width 13.9 % (11.8-14.3); White Blood Cell 13.1 10^3/uL (4.4-10.8)
[2023-03-04 05:09] LABS: Calcium 7.4 mg/dL (8.5-10.1); Potassium 4.4 mmol/L (3.5-5.1)
[2023-03-04 05:12] LABS: BUN/Creatinine Ratio 5.6 (10.0-20.0); Bilirubin, Total 0.7 mg/dL (0.2-1.0); Total Protein 6.8 g/dL (6.4-8.2)
[2023-03-04] MEDS: LACTULOSE 20Gm/30ML SOLN PO SCH ×3 (06:00→22:00)
[2023-03-04] MEDS: ACCU-CHEK COMFORT CURVE STRIP VI SCH ×4 (06:11→22:27)
[2023-03-04] MEDS: InsuLIN REG 1unit/0.01ml Soln (100units/ml) SC SCH ×4 (06:11→22:40)
[2023-03-04] MEDS: HYDROcodone-ACET 5/325MG TAB PO PRN (06:29)
[2023-03-04] MEDS: MIDODRINE HCL 10 MG TAB PO SCH ×3 (06:29→17:13)
[2023-03-04] MEDS ORDERED: SODIUM CHL 0.9% 1000 ML BAG XX ONE (08:00)
[2023-03-04] MEDS: FERROUS SULFATE 325mg EC TAB PO SCH (08:52)
[2023-03-04] MEDS: METOCLOPRAMIDE HCL 10 MG TAB PO SCH (08:52)
[2023-03-04] MEDS: cefTRIAXone 1GM/50ML D5W 50 ML IV SCH (08:53)
[2023-03-04] MEDS: dilTIAZem 120MG ER CAP PO SCH (10:00)
[2023-03-04] MEDS: FATTY ACIDS PO SCH (11:16)
[2023-03-04] MEDS: OMEGA PO SCH (11:16)
[2023-03-04] MEDS: AMIODARONE HCL 200 MG TAB PO SCH ×2 (11:19→22:26)
[2023-03-04] MEDS: SEVELAMER 800 MG TAB PO SCH ×2 (12:14→17:13)
[2023-03-04] MEDS ORDERED: ALBUMIN 25% 100 ML IV ONE (13:00)
[2023-03-04] MEDS: ATORVASTATIN 20 MG TAB PO SCH (22:25)
[2023-03-04] MEDS: DOXYCYCLINE 100 MG TAB/CAP PO SCH (22:25)
[2023-03-04] MEDS: AMITRIPTYLINE HCL 25 MG TAB PO SCH (22:26)
[2023-03-05] VITALS (44 sets, daily range): BP systolic 96–209; BP diastolic 35–123
[2023-03-05 05:08] LABS: Eosinophils # (auto) 1.3 10 ^3/uL (0-0.8); Hemoglobin 10.8 g/dL (12.2-16.2); Lymphocytes # (auto) 0.6 10 ^3/uL (0.4-5.4); Lymphocytes % (auto) 6.4 % (10.0-50.0); Mean Corpuscular Hgb Conc. 33.4 g/dL (32.0-36.0); White Blood Cell 9.6 10^3/uL (4.4-10.8)
[2023-03-05 05:10] LABS: Basophils # (auto) 0 10 ^3/uL (0-0.2); Basophils % (auto) 0.4 % (0.0-2.0); Eosinophils % (auto) 13.8 % (0.0-7.0); Hematocrit 32.3 % (36.0-46.0); Mean Corpuscular Hemoglobin 33.6 pg (28.0-32.0); Mean Corpuscular Volume 100.6 fL (80.0-100.0); Monocytes # (auto) 0.8 10 ^3/uL (0-1.3); Monocytes % (auto) 7.9 % (0.0-12.0); Neutrophils # (auto) 6.9 10 ^3/uL (1.6-8.6); Neutrophils % (auto) 71.5 % (37.0-80.0); Red Blood Cells 3.21 10^6/uL (4.0-5.20); Red Cell Distribution Width 13.6 % (11.8-14.3)
[2023-03-05 05:23] LABS: Potassium 3.5 mmol/L (3.5-5.1)
[2023-03-05 05:27] LABS: BUN/Creatinine Ratio 5.1 (10.0-20.0); Calcium 7.6 mg/dL (8.5-10.1)
[2023-03-05] MEDS: LACTULOSE 20Gm/30ML SOLN PO SCH ×2 (06:00→10:36)
[2023-03-05] MEDS: MIDODRINE HCL 10 MG TAB PO SCH ×3 (06:10→18:15)
[2023-03-05] MEDS: ACCU-CHEK COMFORT CURVE STRIP VI SCH ×4 (06:15→21:39)
[2023-03-05] MEDS: InsuLIN REG 1unit/0.01ml Soln (100units/ml) SC SCH ×4 (06:15→21:42)
[2023-03-05] MEDS: cefTRIAXone 1GM/50ML D5W 50 ML IV SCH (08:31)
[2023-03-05] MEDS: SEVELAMER 800 MG TAB PO SCH ×3 (08:31→18:16)
[2023-03-05] MEDS: dilTIAZem 120MG ER CAP PO SCH (08:32)
[2023-03-05] MEDS: AMIODARONE HCL 200 MG TAB PO SCH ×2 (08:32→21:32)
[2023-03-05] MEDS: DOXYCYCLINE 100 MG TAB/CAP PO SCH ×2 (08:32→21:32)
[2023-03-05] MEDS: FERROUS SULFATE 325mg EC TAB PO SCH (08:33)
[2023-03-05] MEDS: METOCLOPRAMIDE HCL 10 MG TAB PO SCH (08:34)
[2023-03-05] MEDS: MORPHINE SULFATE INJ 2 MG/ml SYRG IV PRN (09:10)
[2023-03-05] MEDS: FATTY ACIDS PO SCH (10:00)
[2023-03-05] MEDS: OMEGA PO SCH (10:00)
[2023-03-05] MEDS: PHENYLEPHRINE IV 250 ML IV SCH (10:35)
[2023-03-05] MEDS ORDERED: LACTULOSE 20Gm/30ML SOLN PO PRN (10:45)
[2023-03-05] MEDS: ENOXAPARIN SOD 60 MG/0.6 ML SYRINGE SC SCH (11:11)
[2023-03-05] MEDS: AMITRIPTYLINE HCL 25 MG TAB PO SCH (21:31)
[2023-03-05] MEDS: ATORVASTATIN 20 MG TAB PO SCH (21:31)
[2023-03-05] MEDS: HYDROcodone-ACET 5/325MG TAB PO PRN (21:31)
[2023-03-05] MEDS: LACTULOSE 20Gm/30ML SOLN PO PRN (21:34)
[2023-03-05] MEDS: ONDANSETRON HCL 4 MG/2 ML VIAL IV PRN (22:10)
[2023-03-06 05:00] VITALS: BP 92/56
[2023-03-06 05:46] LABS: Basophils # (auto) 0.1 10 ^3/uL (0-0.2); Basophils % (auto) 0.7 % (0.0-2.0); Eosinophils # (auto) 1.3 10 ^3/uL (0-0.8); Hemoglobin 11.4 g/dL (12.2-16.2); Lymphocytes # (auto) 0.6 10 ^3/uL (0.4-5.4); Monocytes % (auto) 5.7 % (0.0-12.0); Neutrophils % (auto) 74.3 % (37.0-80.0)
[2023-03-06 05:48] LABS: Hematocrit 33.4 % (36.0-46.0); Lymphocytes % (auto) 6.3 % (10.0-50.0); Mean Corpuscular Hemoglobin 34.4 pg (28.0-32.0); Mean Corpuscular Volume 101.4 fL (80.0-100.0); Monocytes # (auto) 0.5 10 ^3/uL (0-1.3); Neutrophils # (auto) 7.1 10 ^3/uL (1.6-8.6); Nucleated Red Blood Cells % 0.1 %; Red Cell Distribution Width 13.4 % (11.8-14.3); White Blood Cell 9.6 10^3/uL (4.4-10.8)
[2023-03-06 06:23] LABS: Potassium 3.9 mmol/L (3.5-5.1)
[2023-03-06 06:30] LABS: BUN/Creatinine Ratio 5.2 (10.0-20.0); Calcium 8.2 mg/dL (8.5-10.1)
[2023-03-06] MEDS: MIDODRINE HCL 10 MG TAB PO SCH ×3 (06:36→18:26)
[2023-03-06] MEDS: ACCU-CHEK COMFORT CURVE STRIP VI SCH ×4 (06:36→21:53)
[2023-03-06] MEDS: InsuLIN REG 1unit/0.01ml Soln (100units/ml) SC SCH ×4 (06:39→22:01)
[2023-03-06] MEDS: SEVELAMER 800 MG TAB PO SCH ×3 (08:12→18:26)
[2023-03-06] MEDS: cefTRIAXone 1GM/50ML D5W 50 ML IV SCH (08:13)
[2023-03-06 09:00] VITALS: BP 91/47
[2023-03-06] MEDS: dilTIAZem 120MG ER CAP PO SCH (10:00)
[2023-03-06] MEDS: OMEGA PO SCH (10:00)
[2023-03-06] MEDS: AMIODARONE HCL 200 MG TAB PO SCH ×2 (10:00→21:52)
[2023-03-06] MEDS: FATTY ACIDS PO SCH (10:00)
[2023-03-06] MEDS: DOXYCYCLINE 100 MG TAB/CAP PO SCH ×2 (10:06→21:52)
[2023-03-06] MEDS: ENOXAPARIN SOD 60 MG/0.6 ML SYRINGE SC SCH (10:07)
[2023-03-06] MEDS: LACTULOSE 20Gm/30ML SOLN PO PRN (10:07)
[2023-03-06] MEDS: FERROUS SULFATE 325mg EC TAB PO SCH (10:07)
[2023-03-06] MEDS: METOCLOPRAMIDE HCL 10 MG TAB PO SCH (10:07)
[2023-03-06 12:25] VITALS: BP 104/65
[2023-03-06] MEDS: ONDANSETRON HCL 4 MG/2 ML VIAL IV PRN ×2 (12:30→18:33)
[2023-03-06 17:16] VITALS: BP 100/67
[2023-03-06] MEDS: AMITRIPTYLINE HCL 25 MG TAB PO SCH (21:52)
[2023-03-06] MEDS: ATORVASTATIN 20 MG TAB PO SCH (21:52)
[2023-03-06] MEDS: HYDROcodone-ACET 5/325MG TAB PO PRN (21:53)
[2023-03-06 22:00] VITALS: BP 122/77
[2023-03-07] MEDS: ONDANSETRON HCL 4 MG/2 ML VIAL IV PRN (00:25)
[2023-03-07 05:00] VITALS: BP 122/77
[2023-03-07] MEDS: MIDODRINE HCL 10 MG TAB PO SCH ×3 (06:00→19:03)
[2023-03-07] MEDS: InsuLIN REG 1unit/0.01ml Soln (100units/ml) SC SCH ×3 (06:22→17:00)
[2023-03-07] MEDS: ACCU-CHEK COMFORT CURVE STRIP VI SCH ×3 (06:23→17:00)
[2023-03-07 06:35] LABS: Basophils # (auto) 0.1 10 ^3/uL (0-0.2); Basophils % (auto) 0.7 % (0.0-2.0); Nucleated Red Blood Cells % 0.1 %; White Blood Cell 8.3 10^3/uL (4.4-10.8)
[2023-03-07 06:37] LABS: Eosinophils # (auto) 1.1 10 ^3/uL (0-0.8); Eosinophils % (auto) 12.8 % (0.0-7.0); Hematocrit 33.4 % (36.0-46.0); Lymphocytes # (auto) 0.7 10 ^3/uL (0.4-5.4); Lymphocytes % (auto) 7.9 % (10.0-50.0); Mean Corpuscular Hemoglobin 33.8 pg (28.0-32.0); Mean Corpuscular Volume 102.3 fL (80.0-100.0); Monocytes # (auto) 0.5 10 ^3/uL (0-1.3); Monocytes % (auto) 6.6 % (0.0-12.0); Red Blood Cells 3.26 10^6/uL (4.0-5.20); Red Cell Distribution Width 13.4 % (11.8-14.3)
[2023-03-07 06:54] LABS: BUN/Creatinine Ratio 5.3 (10.0-20.0); Calcium 8.5 mg/dL (8.5-10.1); Potassium 4.5 mmol/L (3.5-5.1)
[2023-03-07] MEDS ORDERED: SODIUM CHL 0.9% 1000 ML BAG XX ONE (07:00)
[2023-03-07 08:00] VITALS: BP 139/75
[2023-03-07] MEDS: SEVELAMER 800 MG TAB PO SCH ×3 (08:28→19:04)
[2023-03-07] MEDS: cefTRIAXone 1GM/50ML D5W 50 ML IV SCH (08:32)
[2023-03-07] MEDS: FATTY ACIDS PO SCH (10:00)
[2023-03-07] MEDS: OMEGA PO SCH (10:00)
[2023-03-07] MEDS ORDERED: DOX100T PO (10:52)
[2023-03-07 12:00] VITALS: BP 107/56
[2023-03-07] MEDS: DOXYCYCLINE 100 MG TAB/CAP PO SCH (15:40)
[2023-03-07] MEDS: AMIODARONE HCL 200 MG TAB PO SCH (15:41)
[2023-03-07] MEDS: METOCLOPRAMIDE HCL 10 MG TAB PO SCH (15:41)
[2023-03-07] MEDS: ENOXAPARIN SOD 60 MG/0.6 ML SYRINGE SC SCH (15:42)
[2023-03-07] MEDS: FERROUS SULFATE 325mg EC TAB PO SCH (15:42)
[2023-03-07] MEDS: dilTIAZem 120MG ER CAP PO SCH (15:45)
[2023-03-07 16:00] VITALS: BP 121/68
[2023-03-07 18:24] VITALS: BP 122/68
[2023-03-07] MEDS ORDERED: EPOETIN ALFA-EPBX 4,000 UNIT/ML VIAL SC ONE (21:00)
== END 2023-03-07 20:05 | disposition home or self-care (01) | DRG 871 ==
LOC: ER 10:58 → OVERFLOW 15:33 → ICU CENTRL 03-02 09:37 → TELE-CENTR 03-05 16:08
PROVIDERS: ADMIT Nurse Practitioner Family; ATTEND Nurse Practitioner Acute Care
PROC: 5A1D70Z Performance of Urinary Filtration, Intermittent, Less than 6 Hours Per Day (ICD-10-PCS; principal; 2023-03-02)
PROC: 5A1D70Z Performance of Urinary Filtration, Intermittent, Less than 6 Hours Per Day (ICD-10-PCS; 2023-03-04)
PROC: 0W9G3ZZ Drainage of Peritoneal Cavity, Percutaneous Approach (ICD-10-PCS; 2023-03-04)
PROC: 5A1D70Z Performance of Urinary Filtration, Intermittent, Less than 6 Hours Per Day (ICD-10-PCS; 2023-03-07)
DX: A41.9 Sepsis, unspecified organism (principal); I21.4 Non-ST elevation (NSTEMI) myocardial infarction; N18.6 End stage renal disease; R65.21 Severe sepsis with septic shock; I13.2 Hypertensive heart and chronic kidney disease with heart failure and with stage 5 chronic kidney disease, or end stage renal disease; R18.8 Other ascites; I50.42 Chronic combined systolic (congestive) and diastolic (congestive) heart failure; I25.10 Atherosclerotic heart disease of native coronary artery without angina pectoris; F32.A Depression, unspecified; E11.22 Type 2 diabetes mellitus with diabetic chronic kidney disease; E78.5 Hyperlipidemia, unspecified; D63.8 Anemia in other chronic diseases classified elsewhere; I48.0 Paroxysmal atrial fibrillation; Z98.61 Coronary angioplasty status; Z79.01 Long term (current) use of anticoagulants; Z82.3 Family history of stroke; Z82.49 Family history of ischemic heart disease and other diseases of the circulatory system; Z83.3 Family history of diabetes mellitus; Z86.73 Personal history of transient ischemic attack (TIA), and cerebral infarction without residual deficits; Z99.2 Dependence on renal dialysis
CPT/HCPCS: 36415; 71045; 74176; 76705; 76942; 80048; 80053; 82962; 83615; 83690; 83986; 84484; 85007; 85025; 85027; 85610; 85730; 87040; 87081; 87205; 89051; 90935; 93005; 93306; 96365; 96375; 97110; 97116; 97163; 97530; C9113; G0378; J0696; J1815; J2405

== ENCOUNTER 2023-03-28 10:38 | Inpatient (IN) | payer MEDICARE, MEDICAID ==
[~2023-03-28] VITALS: Ht 157.5 cm; Wt 71.1 kg
[~2023-03-28 10:38] MED LIST changes: -CLON0.1T PO; +DOX100T PO; -LACT10PA2 PO; -LISI20TA56 PO; -MAGN250T13 PO; -METO10TA3 PO; -SILD20TA12 PO
[2023-03-28] MEDS ORDERED: MORPHINE SULFATE 4 MG/ML SYR/VIAL IV ONE (11:00)
[2023-03-28] MEDS ORDERED: ONDANSETRON HCL 4 MG/2 ML VIAL IV ONE (11:00)
[2023-03-28 11:12] LABS: Basophils # (auto) 0.2 10 ^3/uL (0-0.2); Basophils % (auto) 2.4 % (0.0-2.0); Eosinophils # (auto) 0.7 10 ^3/uL (0-0.8); Eosinophils % (auto) 11.1 % (0.0-7.0); Hematocrit 33.7 % (36.0-46.0); Hemoglobin 10.8 g/dL (12.2-16.2); Lymphocytes # (auto) 0.7 10 ^3/uL (0.4-5.4); Lymphocytes % (auto) 10.2 % (10.0-50.0); Mean Corpuscular Hemoglobin 33.6 pg (28.0-32.0); Mean Corpuscular Hgb Conc. 31.9 g/dL (32.0-36.0); Mean Corpuscular Volume 105.1 fL (80.0-100.0); Monocytes # (auto) 0.5 10 ^3/uL (0-1.3); Monocytes % (auto) 7.2 % (0.0-12.0); Neutrophils # (auto) 4.5 10 ^3/uL (1.6-8.6); Neutrophils % (auto) 69.1 % (37.0-80.0); Red Blood Cells 3.21 10^6/uL (4.0-5.20); White Blood Cell 6.5 10^3/uL (4.4-10.8)
[2023-03-28 11:38] LABS: INR 1.25 (0.9-1.15); Partial Thromboplastin Time 28.9 SEC (24.5-34.5)
[2023-03-28 12:02] LABS: Albumin 2.7 g/dL (3.4-5.0); BUN/Creatinine Ratio 6.1 (10.0-20.0); Calcium 8.1 mg/dL (8.5-10.1); Magnesium 2.6 mg/dL (1.6-2.6); Potassium 4.7 mmol/L (3.5-5.1)
[2023-03-28 12:05] LABS: Bilirubin, Total 0.6 mg/dL (0.2-1.0); Total Protein 6.3 g/dL (6.4-8.2)
[2023-03-28] MEDS ORDERED: MORPHINE SULFATE INJ 2 MG/ml SYRG IV PRN (16:15)
[2023-03-28] MEDS ORDERED: NITROGLYCERIN 0.4 MG SL TAB SL PRN (16:15)
[2023-03-28] MEDS ORDERED: DEXTROSE (50%) 50ML SYRG IV PRN (16:30)
[2023-03-28] MEDS ORDERED: hydrALAZINE HCL 20 MG/ML VL IV PRN (16:30)
[2023-03-28] MEDS: ACCU-CHEK COMFORT CURVE STRIP VI SCH ×2 (17:15→23:22)
[2023-03-28] MEDS: InsuLIN REG 1unit/0.01ml Soln (100units/ml) SC SCH ×2 (17:19→23:22)
[2023-03-28] MEDS: SEVELAMER 800 MG TAB PO SCH (19:09)
[2023-03-28] MEDS ORDERED: AMITRIPTYLINE HCL 75 MG PO SCH (22:00)
[2023-03-28] MEDS: ATORVASTATIN 20 MG TAB PO SCH (22:43)
[2023-03-28] MEDS: hydrOXYzine 25 MG TAB or CAP PO SCH (22:43)
[2023-03-28] MEDS: traZODone HCL 50 MG TAB PO SCH (22:48)
[2023-03-29 02:36] VITALS: BP 93/65
[2023-03-29 05:00] VITALS: BP 107/69
[2023-03-29 06:51] LABS: Basophils # (auto) 0.1 10 ^3/uL (0-0.2); Eosinophils # (auto) 0.8 10 ^3/uL (0-0.8); Eosinophils % (auto) 11.7 % (0.0-7.0); Monocytes # (auto) 0.6 10 ^3/uL (0-1.3)
[2023-03-29 06:53] LABS: Basophils % (auto) 1.4 % (0.0-2.0); Lymphocytes # (auto) 0.9 10 ^3/uL (0.4-5.4); Lymphocytes % (auto) 13.3 % (10.0-50.0); Mean Corpuscular Hemoglobin 34.2 pg (28.0-32.0); Mean Corpuscular Hgb Conc. 32.4 g/dL (32.0-36.0); Mean Corpuscular Volume 105.4 fL (80.0-100.0); Monocytes % (auto) 9.3 % (0.0-12.0); Neutrophils # (auto) 4.5 10 ^3/uL (1.6-8.6); Neutrophils % (auto) 64.3 % (37.0-80.0); Red Blood Cells 2.94 10^6/uL (4.0-5.20); Red Cell Distribution Width 14.7 % (11.8-14.3)
[2023-03-29] MEDS: ACCU-CHEK COMFORT CURVE STRIP VI SCH ×4 (06:58→21:24)
[2023-03-29] MEDS: InsuLIN REG 1unit/0.01ml Soln (100units/ml) SC SCH ×4 (06:59→21:36)
[2023-03-29 07:06] LABS: Albumin 2.7 g/dL (3.4-5.0); Calcium 7.6 mg/dL (8.5-10.1)
[2023-03-29 07:09] LABS: BUN/Creatinine Ratio 5.8 (10.0-20.0); Bilirubin, Total 0.6 mg/dL (0.2-1.0); Total Protein 6.6 g/dL (6.4-8.2)
[2023-03-29 07:42] LABS: Potassium 5.7 mmol/L (3.5-5.1)
[2023-03-29] MEDS: SEVELAMER 800 MG TAB PO SCH ×4 (08:42→18:27)
[2023-03-29 09:00] VITALS: BP 93/54
[2023-03-29] MEDS: FUROSEMIDE 40 MG TAB PO SCH ×2 (09:39→09:57)
[2023-03-29] MEDS: FERROUS SULFATE 325mg EC TAB PO SCH (09:39)
[2023-03-29] MEDS: ENOXAPARIN SOD 30 MG/0.3 ML SYRINGE SC SCH (09:39)
[2023-03-29] MEDS: hydrOXYzine 25 MG TAB or CAP PO SCH ×2 (09:39→21:23)
[2023-03-29] MEDS ORDERED: PATIENTS OWN MEDICATION (Diltiazem Hcl (Diltiazem Hcl Er) 1 CAP) PO SCH (10:00)
[2023-03-29] MEDS ORDERED: PANTOPRAZOLE 40 MG TAB PO SCH (10:00)
[2023-03-29] MEDS ORDERED: SODIUM CHL 0.9% 1000 ML BAG XX ONE (11:00)
[2023-03-29 13:00] VITALS: BP 98/68
[2023-03-29 17:00] VITALS: BP 98/63
[2023-03-29] MEDS: ALBUMIN 25% 100 ML IV PRN ×2 (17:26→19:12)
[2023-03-29] MEDS: ATORVASTATIN 20 MG TAB PO SCH (21:23)
[2023-03-29] MEDS: ACETAMINOPHEN 325 MG TAB PO PRN (21:24)
[2023-03-29] MEDS: traZODone HCL 50 MG TAB PO SCH (21:24)
[2023-03-29 22:00] VITALS: BP 105/71
[2023-03-30 05:00] VITALS: BP 84/51
[2023-03-30] MEDS: ACCU-CHEK COMFORT CURVE STRIP VI SCH ×4 (06:30→22:01)
[2023-03-30] MEDS: InsuLIN REG 1unit/0.01ml Soln (100units/ml) SC SCH ×4 (06:41→22:00)
[2023-03-30] MEDS: ENOXAPARIN SOD 30 MG/0.3 ML SYRINGE SC SCH (08:59)
[2023-03-30] MEDS: SEVELAMER 800 MG TAB PO SCH ×3 (08:59→16:59)
[2023-03-30] MEDS: FERROUS SULFATE 325mg EC TAB PO SCH (08:59)
[2023-03-30] MEDS: hydrOXYzine 25 MG TAB or CAP PO SCH ×2 (08:59→21:55)
[2023-03-30 09:00] VITALS: BP 82/42
[2023-03-30] MEDS: FUROSEMIDE 40 MG TAB PO SCH (10:00)
[2023-03-30 13:00] VITALS: BP 100/73
[2023-03-30 16:56] VITALS: BP 124/76
[2023-03-30] MEDS: ACETAMINOPHEN 325 MG TAB PO PRN (16:58)
[2023-03-30 21:31] VITALS: BP 95/51
[2023-03-30] MEDS: ATORVASTATIN 20 MG TAB PO SCH (21:56)
[2023-03-30] MEDS: traZODone HCL 50 MG TAB PO SCH (21:56)
[2023-03-30 22:49] LABS: Hemoglobin 10.5 g/dL (12.2-16.2); White Blood Cell 6.1 10^3/uL (4.4-10.8)
[2023-03-30 22:52] LABS: Hematocrit 32.3 % (36.0-46.0); Mean Corpuscular Hemoglobin 34.2 pg (28.0-32.0); Mean Corpuscular Hgb Conc. 32.5 g/dL (32.0-36.0); Mean Corpuscular Volume 105.1 fL (80.0-100.0); Red Blood Cells 3.07 10^6/uL (4.0-5.20); Red Cell Distribution Width 14.3 % (11.8-14.3)
[2023-03-30 22:56] LABS: Band Neutrophils % (manual) 0; Basophils % (manual) 0 (0.0-2.0); Blast Cells 0; Metamyelocytes % 0; Myelocytes % 0; Promyelocytes % 0; Reactive Lymphocytes 0
[2023-03-30 23:26] LABS: Eosinophils % (manual) 14 (0-7); Lymphocytes % (manual) 19 (10.0-50.0); Monocytes % (manual) 8 (0-12)
[2023-03-31] MEDS: ACETAMINOPHEN 325 MG TAB PO PRN ×3 (04:10→22:12)
[2023-03-31 04:45] VITALS: BP 92/57
[2023-03-31] MEDS: ACCU-CHEK COMFORT CURVE STRIP VI SCH ×4 (06:49→22:11)
[2023-03-31] MEDS: InsuLIN REG 1unit/0.01ml Soln (100units/ml) SC SCH ×4 (06:50→22:00)
[2023-03-31 09:00] VITALS: BP 136/84
[2023-03-31] MEDS: FUROSEMIDE 40 MG TAB PO SCH (10:26)
[2023-03-31] MEDS: ENOXAPARIN SOD 30 MG/0.3 ML SYRINGE SC SCH (10:26)
[2023-03-31] MEDS: hydrOXYzine 25 MG TAB or CAP PO SCH ×2 (10:27→22:04)
[2023-03-31] MEDS: FERROUS SULFATE 325mg EC TAB PO SCH (10:27)
[2023-03-31] MEDS: SEVELAMER 800 MG TAB PO SCH ×3 (10:27→18:06)
[2023-03-31 13:00] VITALS: BP 112/68
[2023-03-31 17:00] VITALS: BP 115/69
[2023-03-31 22:00] VITALS: BP 103/65
[2023-03-31] MEDS: traZODone HCL 50 MG TAB PO SCH (22:04)
[2023-03-31] MEDS: ATORVASTATIN 20 MG TAB PO SCH (22:04)
[2023-04-01 05:00] VITALS: BP 96/56
[2023-04-01] MEDS ORDERED: ALBUMIN 25% 100 ML IV ONE (06:00)
[2023-04-01] MEDS: ACCU-CHEK COMFORT CURVE STRIP VI SCH ×3 (06:11→17:21)
[2023-04-01] MEDS: InsuLIN REG 1unit/0.01ml Soln (100units/ml) SC SCH ×3 (06:12→17:00)
[2023-04-01 06:36] LABS: BUN/Creatinine Ratio 5.5 (10.0-20.0); Calcium 8.2 mg/dL (8.5-10.1)
[2023-04-01 06:48] LABS: Potassium 5.9 mmol/L (3.5-5.1)
[2023-04-01] MEDS ORDERED: SODIUM CHL 0.9% 1000 ML BAG XX ONE (07:00)
[2023-04-01 08:00] VITALS: BP 115/59
[2023-04-01] MEDS: SEVELAMER 800 MG TAB PO SCH ×3 (08:28→18:00)
[2023-04-01 09:00] VITALS: BP 115/59
[2023-04-01] MEDS: FERROUS SULFATE 325mg EC TAB PO SCH (09:51)
[2023-04-01] MEDS: hydrOXYzine 25 MG TAB or CAP PO SCH (09:51)
[2023-04-01] MEDS: FUROSEMIDE 40 MG TAB PO SCH (09:52)
[2023-04-01] MEDS: ENOXAPARIN SOD 30 MG/0.3 ML SYRINGE SC SCH (09:52)
[2023-04-01 13:00] VITALS: BP 101/64
[2023-04-01 17:00] VITALS: BP 111/68
[2023-04-01] MEDS ORDERED: EPOETIN ALFA-EPBX 10,000 UNIT/1ML VIAL SC ONE (21:00)
== END 2023-04-01 19:02 | DRG 432 ==
LOC: ER 10:38 → TELE 16:14 → TELE-WESTW 03-29 01:59
PROVIDERS: ADMIT Nurse Practitioner Family; ATTEND Family Medicine
PROC: 5A1D70Z Performance of Urinary Filtration, Intermittent, Less than 6 Hours Per Day (ICD-10-PCS; 2023-03-29)
PROC: 0W9G3ZZ Drainage of Peritoneal Cavity, Percutaneous Approach (ICD-10-PCS; principal; 2023-03-30)
PROC: 05H933Z Insertion of Infusion Device into Right Brachial Vein, Percutaneous Approach (ICD-10-PCS; 2023-03-30)
PROC: B54MZZA Ultrasonography of Right Upper Extremity Veins, Guidance (ICD-10-PCS; 2023-03-30)
PROC: 5A1D70Z Performance of Urinary Filtration, Intermittent, Less than 6 Hours Per Day (ICD-10-PCS; 2023-04-01)
DX: K74.60 Unspecified cirrhosis of liver (principal); E43 Unspecified severe protein-calorie malnutrition; N18.6 End stage renal disease; R18.8 Other ascites; I13.2 Hypertensive heart and chronic kidney disease with heart failure and with stage 5 chronic kidney disease, or end stage renal disease; I48.91 Unspecified atrial fibrillation; D63.8 Anemia in other chronic diseases classified elsewhere; I50.9 Heart failure, unspecified; E11.22 Type 2 diabetes mellitus with diabetic chronic kidney disease; Z20.822 Contact with and (suspected) exposure to COVID-19; E78.00 Pure hypercholesterolemia, unspecified; E87.5 Hyperkalemia; I25.10 Atherosclerotic heart disease of native coronary artery without angina pectoris; M10.9 Gout, unspecified; M54.50 Low back pain, unspecified; R77.8 Other specified abnormalities of plasma proteins; H54.8 Legal blindness, as defined in USA; F32.A Depression, unspecified; Z99.2 Dependence on renal dialysis; Z91.199 Patient's noncompliance with other medical treatment and regimen due to unspecified reason; Z82.49 Family history of ischemic heart disease and other diseases of the circulatory system; Z83.3 Family history of diabetes mellitus; Z86.73 Personal history of transient ischemic attack (TIA), and cerebral infarction without residual deficits; Z91.148 Patient's other noncompliance with medication regimen for other reason; Z90.49 Acquired absence of other specified parts of digestive tract; Z68.30 Body mass index [BMI] 30.0-30.9, adult
CPT/HCPCS: 36415; 76705; 76942; 80048; 80053; 82140; 82962; 83690; 83735; 83880; 83986; 84484; 85007; 85018; 85025; 85027; 85610; 85730; 87205; 87340; 87426; 89051; 90935; 93005; 97163; G0378; J1815; J2405; P9047

== ENCOUNTER → 2024-11-20 | Outpatient (CLI) | payer MEDICARE, MEDICAID ==
[~2024-11-20] VITALS: Ht 160 cm; Wt 63.5 kg
[~2024-11-20] MED LIST changes: +AMIO200T33 PO; -CARV6.25 PO; +CARV6.2517 PO; +DOCU-94 PO; +DORZ2SOL18 EACHEYE; +GABA-1308 PO; +INS7030I SC; +MIDO10TA10 PO
[2024-11-20] MEDS: REGADENOSON 0.4 MG/5 ML SYRG IV ONE ×2 (11:33→12:41)
--- NOTE | 2024-11-22 12:17 | DVHSR ---
APPROVED REPORT Exam: Nuclear Stress Test Indication: Chest Pain Stress Tech: Floridalma Hebert Ht: 5 ft 3 in Wt: 140 lbs BSA: 1.66 m2 HR: 111 bpm BP: 122/98 mmHg BMI: 24.79 Medical History Medical History: PAD, HTN, DM, Arthritis, ESRD on hemodialysis, Anasarca, EF60% Allergies: No known drug allergies Stress Test Details Stress Test: Pharmacologic stress testing performed using 0.4 mg of regadenoson per 5 mL given IV ov er 10 seconds. Reason for pharmacologic stress test: Chest Pain. HR Resting HR: 111 bpmMax Heart Rate (APMHR): 161.396995 bpm Max HR Achieved: 126 bpmTarget HR (85% APMHR): 136.500288 bpm % of APMHR: 78.26 BP Resting BP: 122/98 mmHg Recovery BP: 130/85 mmHg ECG Resting ECG: See Baseline Clinical Reason for Termination: Completed protocol Nurse Comments Uneventful stress test completed per protocol. Stress ECG Conclusion lvef 60% normal perfusion study NM EXAM: Myocardial Perfusion REST/STRESS Imaging Protocol: Rest Tc-99m/Stress Tc-99m 1 day Resting Data Rest SPECT myocardial perfusion imaging was performed in supine position 60 minutes following the int ravenous injection of 13 mCi of Tc-99m Sestamibi. Time of rest injection: 1135 Time of rest imagin Administration Route: IV Administration Site: Right AC Pharmacologic Stress Pharmacologic stress test was performed by injecting Regadenoson 0.4 mg IV push followed by the intra venous injection of 32 mCi of Tc-99m Sestamibi. Time of stress injection: 1241 Time of stress imagin Administration Route: IV Administration Site: Right AC Gated Stress SPECT was performed 60 minutes after stress injection. The images were gated to evaluate regional wall motion and calculate left ventricular ejection fracti on. Stress only was performed in the Supine position. Nuclear Conclusion Nuclear Findings: negative for ischemia lvef 60% normal perfusion study
== END | disposition home or self-care (01) ==
LOC: XYW 10:57
PROVIDERS: ATTEND Internal Medicine
DX: R07.9 Chest pain, unspecified (principal); E11.51 Type 2 diabetes mellitus with diabetic peripheral angiopathy without gangrene; E11.22 Type 2 diabetes mellitus with diabetic chronic kidney disease; N18.6 End stage renal disease; Z99.2 Dependence on renal dialysis
CPT/HCPCS: 78452; 93017; A9500; J2785

== ENCOUNTER 2024-12-02 23:34 | Inpatient (IN) | payer MEDICARE, MEDICAID ==
[~2024-12-02] VITALS: Ht 167.6 cm; Wt 60.3 kg
[2024-12-03] VITALS (70 sets, daily range): BP systolic 65–122; BP diastolic 45–85; PULSE 71–116; RESP 9–30; TEMP 96.2–98.4; O2SAT 94–100
[2024-12-03] MEDS: ATROPINE SULF 1 MG/10ml SYR IV ONE
[2024-12-03 00:21] LABS: Hematocrit 30.7 % (36.0-46.0); Hemoglobin 9.8 g/dL (12.2-16.2); Mean Corpuscular Hemoglobin 32.6 pg (28.0-32.0); Mean Corpuscular Volume 101.6 fL (80.0-100.0); Platelet Count (auto) 121 10^3/uL (140-450); Red Blood Cells 3.02 10^6/uL (4.0-5.20); Red Cell Distribution Width 14.7 % (11.8-14.3); White Blood Cell 6.5 10^3/uL (4.4-10.8)
--- NOTE | 2024-12-03 00:22 | ED.PDOC ---
History of Present Illness HPI Comments This is a 59-year-old female that is brought in by ambulance from home for complaint of syncope, today. Per EMS report, patient's family called after endorsing on witnessing the patient having a sudden syncopal episode, while in her wheelchair, after endorsing on having some abdominal pain and nausea and vo miting, earlier, this evening. She was noted to have been found hypotensive and bradycardic on scene, with initial systolic pressure in the 50-60's range and a heart rate in the 30-50's range, in addition to lethargic. EN route patient received Zofran and 3 doses of push epinephrine and arrived to ED with a blood pressure of 78/36 and a heart rate of 52. Patient has no reported additional associated symptoms, currently. She has an endorsed medical history of ESRD with hemodialysis on Tuesday and Tuesday and liver disease with weekly paracentesis. Further history can not be obtained at this time of initial counter, due to patient's current condition and absence of family/news intern historians. Chief Complaint: Syncope Time Seen by MD: 23:52 Primary Care Provider: unknown Reviewed Notes: Nurses Notes, Ring Conductor Notes, Medications, Allergies Allergies: Coded Allergies: No Known Drug Allergy (Unverified Allergy, Unknown, 11/20/24) Home Meds Active Scripts Doxycycline Monohydrate (Doxycycline Monohydrate) 100 Mg Tab, 100 MG PO Q12HR for 7 Days, #14 TAB Prov:PAVEL GUAMAN ADVERTISING EDITOR 03/07/23 Reported Medications Cetirizine Hcl (Cetirizine Hcl) 5 Mg Tab, 1 TAB DAILY 09/05/22 Pantoprazole Sodium Sesquihydr (Pantoprazole Sodium Dr) 40 Mg Tab, 1 TAB DAILY 09/05/22 Diltiazem Hcl (DILTIAZEM HCL ER) 240 Mg Cap, 1 CAP PO DAILY 09/05/22 Benzonatate (Benzonatate) 100 Mg Cap, 100 MG PO TIDPRN PRN for FOR COUGH, CAP 11/04/21 Hydrocodone-Acetaminophen (Hydrocodone Bitartrate/AC 5-325 mg) 1 Tab Tab, 1 TAB PO TID for PAIN, TAB 11/04/21 Midodrine Hcl (Midodrine Hcl) 5 Mg Tab, 5 MG PO DAILY for HYPERTENSION, TAB 11/04/21 Tramadol Hcl (Tramadol Hcl) 50 Mg Tab, 50 MG PO Q6HPRN PRN for PAIN SCALE 7 THRU 10, MG 11/04/21 Ferrous Sulfate (Ferrous Sulfate) 325 Mg Tab, 325 MG PO DAILY for IRON DEFICIENCY, MG 11/04/21 Insulin Regular (Human) (Humulin R) 100 Unit/Ml Inj, 8 UNIT SC QPM for DIABETES, INJ 11/04/21 Apixaban Base (ELIQUIS) 2.5 Mg Tab, 2.5 MG PO DAILY for ARRHYTHMIA, TAB 07/24/21 Trazodone HCl (Trazodone Hydrocloride) 100 Mg Tab, 100 MG PO HS for DEPRESSION, TAB 07/24/21 Hydroxyzine Hcl (Hydroxyzine Hcl) 25 Mg Tab, 25 MG PO BID for ANXIETY 06/04/21 Acetaminophen W/ Codeine (Tylenol W/Cod #3) 1 Tab Tb, 1 TAB PO Q6HP for PAIN 06/04/21 [place]-3 Fatty Acids ([place] Oil) 1,000 Mg Cap, 1000 MG PO DAILY for SUPPLEMENT 06/04/21 Carvedilol (Coreg) 6.25 Mg Tab, 6.25 MG PO BID for HYPERTENSION 01/14/21 Amitriptyline HCl (Amitriptyline Hydrochlori) 75 Mg Tab, 75 MG PO HS for ANXIETY, TAB 01/14/21 Hydralazine HCl (Hydralazine HCl) 25 Mg Tab, 25 MG PO Q8HPRN for HYPERTENSION, TAB 01/14/21 Atorvastatin Calcium (Lipitor) 20 Mg Tab, 20 MG PO HS for HYPERLILIDEMIA, TAB 01/14/21 Furosemide (Furosemide) 80 Mg Tab, 80 MG PO DAILY for EDEMA 01/27/18 Sevelamer Carbonate (Renvela) 800 Mg Tab, 2 TAB PO TIDWM 01/27/18 Information Source: Patient, Emergency Med Personnel Mode of Arrival: EMS Severity: Moderate Timing: Hours Duration: Since onset Prehospital treatment: 12 Lead EKG, Accucheck, Endless Bed Drum Sander, Other (Zofran, push epinephrine chest 3x) Review of Systems: REVIEW OF SYSTEMS: No fever, no chills, or fatigue HEENT: No sore throat, no earache, no congestion, no neck pain. Cardiac: No chest pain. No palpitations. Lungs: No shortness of breath, no cough. GI: No nausea, no vomiting, no diarrhea, no constipation, no abdominal pain : No dysuria, frequency, or urgency. No hematuria. Musculoskeletal: No joint pain , no joint swelling, no extremity edema. Skin: No rash, no itching. Neuro: No headache, no dizziness, no weakness Vital Signs Vital Signs Date Time Temp Pulse Resp B/P (MAP) Pulse Ox O2 Delivery O2 Flow Rate FiO2 12/03/24 04:00 96 12/03/24 04:00 96.0 19 83/38 (53) 100 96.0 12/03/24 01:20 Nasal Cannula* 3 32 Physical Exam General: On initial exam patient is lethargic Skin: Skin is jaundice, cool to touch, feet cyanotic HEENT: The head is normocephalic and atraumatic. Conjunctivae are clear without exudates or hemorrhage. There are icteric with exophthalmos , patient is blind Eyelids are normal in appearance without swelling or lesions. Neck: The neck is supple with normal range of motion. No JVD. Cardiac: Heart rate and rhythm are normal. No murmurs, gallops, or rubs are auscultated. Respiratory: No signs of respiratory distress. Lung sounds are clear in all lobes bilaterally without rales, ronchi, or wheezes. Abdominal: Abdomen is distended with fluid wave, generally tender with normal bowel sounds Extremities: Upper and lower extremities are atraumatic in appearance without deformity or edema. Fistula present unless upper extremity Neurological: The patient is lethargic, responsive to verbal stimulation, moving all extremities spontaneously. Speech is clear. There is no facial asymmetry. Past Medical History PAST MEDICAL HISTORY: Anemia, Angina, CAD, CHF (On Lasix), CVA, Depression (On trazodone), DM, ESRD (With hemodialysis on Tuesday, Tuesday, Tuesday), Gout, High Lipids (Lipitor), HTN, Liver (Liver cirrhosis with ascites and weekly paracentesis) Past Medical History (Other): Legally blind Surgical History: Appendectomy RIGGER APPRENTICE History: No Pertinent RIGGER APPRENTICE History Family History Family History: Reviewed,noncontributory to illness, Family hx of DM, Family hx of HTN, Family hx of stroke Family History (Other): CVA Social History Smoker: Non-Smoker Alcohol: Denies ETOH Use Drugs: Denies Drug Use Lives In: Home Was a procedure done? 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 Indication: Hypotension, Volume resuscitation, Inability to obtain IV, [place] spected infection Room prepared for procedure: Yes Manager Quality Improvement performed hand hygien: Yes Maximal sterile barrier precau: Mask/Eye shield, Sterile gown, Cap, Sterlie gloves, Large sterlie drape Skin Preparation: Chlorhexidine gluconate, Providine iodine Skin preparation completely dr: Yes Insertion site: Left, Femoral Central line catheter type: [id number] dialysis Number of lumens: 3 Central line exchanged over a: No Antiseptic ointment applied to: No Post Assessment: Proper placement Informed consent obtained: Yes Risks/benefits/alt described: Yes Notes There was extensive detailed discussion with patient and family members at bedside regarding central line procedure, risks, benefits including infection, bleeding, nerve damage, unsuccessful or need for repeat procedure. A video deaf interpreter was used for this informed consent discussion as well as throughout the procedure. Patient was advised that central line in the neck/internal jugular has a lower risk for infection compared to line in the groin/femoral vein however patient was adamant that she did not want another line placed in her neck. Differential Dx Considerations may include: Fluid overload, anemia, hypotension, bradycardia, vasovagal response, electrolyte imbalance, encephalopathy X-Ray, Labs, Meds, VS Vital Signs Date Time Temp Pulse Resp B/P (MAP) Pulse Ox O2 Delivery O2 Flow Rate FiO2 12/03/24 04:00 96 12/03/24 04:00 96.0 87 19 83/38 (53) 100 96.0 12/03/24 03:45 95.9 98 19 102/65 (77) 100 95.9 12/03/24 03:38 95.9 81 17 117/87 (97) 88 95.9 12/03/24 03:35 117/87 12/03/24 03:30 95.9 110 19 117/69 (85) 100 95.9 12/03/24 03:15 95.8 86 19 106/74 (85) 100 95.8 12/03/24 03:00 95.7 110 19 108/71 (83) 100 95.7 12/03/24 02:45 95.6 85 17 113/70 (84) 100 95.6 12/03/24 02:30 95.6 88 19 106/80 (89) 100 95.6 12/03/24 02:30 107/54 12/03/24 02:15 95.5 96 14 92/76 (81) 100 95.5 12/03/24 02:00 95.9 81 17 87/59 (68) 88 95.9 12/03/24 01:30 87/30 12/03/24 01:25 75/69 12/03/24 01:25 87/30 (49) 12/03/24 01:20 71 14 97 Nasal Cannula* 3 32 12/03/24 01:20 14 94 Nasal Cannula* 2 28 12/03/24 01:17 75/69 (71) 12/03/24 01:17 74/39 12/03/24 01:12 78/36 12/03/24 01:12 74/39 (51) 12/03/24 01:07 94.9 62 17 78/36 (50) 88 94.9 12/03/24 01:07 61/57 12/03/24 00:34 61/37 12/03/24 00:00 65 12/02/24 23:50 94.8 51 17 61/37 (45) 88 94.8 12/02/24 23:39 31 15 64/41 (49) 92 12/02/24 23:38 52 Lab Test 12/03/24 03:04 12/03/24 00:34 12/02/24 23:59 Range/Units Lactic Acid Level 1.5 2.4 *H 0.4-2.0 mmol/L Troponin I High Sensitivity 53 *H 56 *H 51 *H </=34 ng/L White Blood Count 6.5 4.4-10.8 10^3/uL Red Blood Count 3.02 L 4.0-5.20 10^6/uL Hemoglobin 9.8 L 12.2-16.2 g/dL Hematocrit 30.7 L 36.0-46.0 % Mean Corpuscular Volume 101.6 H 80.0-100.0 fL Mean Corpuscular Hemoglobin 32.6 H 28.0-32.0 pg Mean Corpuscular Hemoglobin Concent 32.0 32.0-36.0 g/dL Red Cell Distribution Width 14.7 H 11.8-14.3 % Platelet Count 121 L 140-450 10^3/uL Mean Platelet Volume 10.4 6.9-10.8 fL Neutrophils (%) (Auto) 37.0-80.0 % Lymphocytes (%) (Auto) 10.0-50.0 % Monocytes (%) (Auto) 0.0-12.0 % Eosinophils (%) (Auto) 0.0-7.0 % Basophils (%) (Auto) 0.0-2.0 % Neutrophils # (Auto) 1.6-8.6 10 ^3/uL Lymphocytes # (Auto) 0.4-5.4 10 ^3/uL Monocytes # (Auto) 0-1.3 10 ^3/uL Differential Total Cells Counted 100.0 100 Neutrophils % (Manual) 62 37.0-80.0 Band Neutrophils % (Manual) 0 Lymphocytes % (Manual) 10 10.0-50.0 Monocytes % (Manual) 8 0-12 Eosinophils % (Manual) 20 H 0-7 Basophils % (Manual) 0 0.0-2.0 Metamyelocytes % (manual) 0 Myelocytes % (Manual) 0 Promyelocytes % (Manual) 0 Blast Cells % (Manual) 0 Reactive Lymphocytes 0 Platelet Estimate Decreased Anisocytosis (manual) Slight Macrocytosis Slight Prothrombin Time 14.0 H 9.3-11.8 sec Prothrombin Time INR 1.36 H 0.9-1.15 Sodium Level 138 136-145 mmol/L Potassium Level 5.8 *H 3.5-5.1 mmol/L Chloride Level 106 98-107 mmol/L Carbon Dioxide Level 22 20-31 mmol/L Anion Gap 10 5-15 Blood Urea Nitrogen 40 H 9-23 mg/dL Creatinine 3.78 H 0.550-1.02 mg/dL Glomerular Filtration Rate Calc 13 >90 mL/min BUN/Creatinine Ratio 10.6 10.0-20.0 Serum Glucose 274 H 74-106 mg/dL Calcium Level 6.0 *L 8.7-10.4 mg/dL Magnesium Level 1.7 1.6-2.6 mg/dL Total Bilirubin 0.4 0.2-1.0 mg/dL Aspartate Amino Transferase (AST) 22 13-40 U/L Alanine Aminotransferase (ALT) 14 7-40 U/L Alkaline Phosphatase 366 H 46-116 U/L Ammonia 31 11-32 umol/L Total Protein 4.3 L 5.7-8.2 g/dL Albumin 2.4 L 3.2-4.8 g/dL Lipase 18 12-53 U/L Thyroid Stimulating Hormone (TSH) 10.57 H 0.55-4.78 uIU/mL Plasma/Serum Blood Alcohol < 3.0 <10 mg/dL Current Medications Medications (Trade) Dose Ordered Sig/Honey Route Start Time Stop Time Status Last Admin Atropine Sulfate (Atropine Sulfate) 1 mg ONCE ONCE IV 12/03/24 00:00 12/03/24 00:01 DC 12/03/24 00:00 Sodium Chloride 1,000 ml @ 1,000 mls/hr Q1H ONCE IV 12/03/24 00:00 12/03/24 00:59 DC 12/03/24 00:00 Epinephrine HCl 250 ml @ 7.5 mls/hr Q24H ONCE IV 12/03/24 00:00 12/03/24 23:59 12/03/24 00:34 Norepinephrine Bitartrate 250 ml @ 3.75 mls/hr Q24H IV 12/03/24 00:45 12/03/24 01:07 Insulin Human Regular (InsuLIN R) 10 units ONCE ONCE IV 12/03/24 01:15 12/03/24 01:16 DC 12/03/24 03:06 Dextrose 50 ml ONCE ONCE IV 12/03/24 01:15 12/03/24 01:16 DC 12/03/24 03:06 Albuterol (Ventolin Medneb) 20 mg ONCE ONCE NEB 12/03/24 01:15 12/03/24 01:16 DC 12/03/24 01:23 Sodium Bicarbonate 50 ml ONCE ONCE IV 12/03/24 01:15 12/03/24 01:16 DC 12/03/24 03:06 Calcium Gluconate/ Sodium Chloride 50 ml @ 120 mls/hr ONCE ONCE IV 12/03/24 01:15 12/03/24 01:39 DC 12/03/24 03:06 Ceftriaxone Sodium 50 ml @ 100 mls/hr ONCE ONCE IV 12/03/24 01:30 12/03/24 01:59 DC 12/03/24 03:10 Sodium Chloride 1,000 ml @ 75 mls/hr [id number] ONCE IV 12/03/24 03:15 12/03/24 16:34 12/03/24 03:17 [place] [address] Ph: [phone] DIAGNOSTIC IMAGING Diagnostic Imaging Report : [id number] Signed PATIENT: PINO FERRERA ACCT: [id number] UNIT: [id number] : 1965 LOC: ER ROOM / BED: / AGE / SEX: 59 / F ADM STATUS: REG ER SERVICE [id number] ORDERING PHYSICIAN: JEROMY BLUNT MD PROCEDURE(s): CXR1 - CHEST XRAY 1 VIEW REASON: Bradycardia, hypotension ORDER NUMBER(s): [id number], ACCESSION NUMBER(s): [id number] CHEST RADIOGRAPH Indication: Bradycardia, hypotension Technique: Single frontal view of the chest was obtained COMPARISON: CXRP on DOS: 09/16/22, CHEST PORTABLE on DOS: 09/16/22, CXRP on DOS: 01/25/22, CXR1 on DOS: 01/24/22, CXRP on DOS: 01/22/22 FINDINGS: Lines and Tubes: None Lungs: Lung volumes are low. Pulmonary vascular congestion. No definite pulmonary infiltrates noted. Pleura: No effusion. No pneumothorax. Cardiomediastinal contours: Marked cardiomegaly possibly related to pericardial effusion. IMPRESSION: Marked cardiomegaly possibly related to pericardial effusion. Low lung volumes. Pulmonary vascular congestion. ATED BY: DIEGO HULL MD DICTATED DATE/TIME: 12/03/2447 SIGNED BY: DIEGO HULL MD SIGNED DATE/TIME: 12/03/2447 CC: Time of 1ST Reevaluation: 00:22 Reevaluation 1ST: Unchanged Patient Education/Counseling: Treatment, Need For Follow Up Family Education/Counseling: No Family Present Departure 1 Departure Time of Disposition: 00:20 Impression: Primary Impression: Syncope Additional Impressions: Symptomatic bradycardia Hypotension Pericardial effusion Seizure-like activity Liver cirrhosis End stage renal disease on dialysis Disposition: ADMITTED INPATIENT Condition: Stable Comments 59-year-old female with history of liver cirrhosis cirrhosis, end-stage renal disease on dialysis presents to the emergency department via EMS after syncopal episode and what the family describes as possible seizure-like activity. Patient was found to be lethargic and bradycardic with a heart rate of 30s and systolic pressure of 60s by EMS. She was given multiple push doses of epinephrine with no improvement of her heart rate or blood pressure by EMS. On arrival to the emergency department patient is found to be lethargic, heart rate in the 50s with blood pressure 60 lower 44. Atropine and epinephrine drip administered which resulted in negligible improvement in heart rate and blood pressure. Epinephrine was discontinued and replaced with norepinephrine which improved blood pressure and heart rate. Subsequently patient's mental status improved significantly. Antibiotics administered for possible SBP. Left femoral central line was placed. Patient admitted for further treatment including paracentesis and pericardiocentesis by IR, further evaluation and monitoring. Extensive evaluation was performed in attempt to identify or rule out: (See differential diagnosis section) The following tests were ordered, and results were reviewed by me: (See diagnostic results section) The following test were independently interpreted by me: EKG, chest x-ray cardiomegaly I reviewed and agreed with the following test results read by other providers: N/A I reviewed the following notes from the pt's past medical encounters: March 2023 encounter for intractable abdominal pain Additional information was gathered from interviewing the following independent historians: EMS personnel, multiple family members at bedside Discussion of management or test interpretation with external physician/other qualified health primary care coordinator: N/A Addressed one or more chronic illnesses with severe exacerbation, progression, or side effects of treatment and acute or chronic illness that poses a threat to life or bodily function: Bradycardia, hypotension, pericardial effusion, end- stage renal disease on dialysis, liver cirrhosis with ascites Decision regarding hospitalization or escalation of hospital level of care: Risk and benefits of admission for further treatment of patient's condition was consi dered. Due to patient's current clinical condition, high risk of decline and poor outcome if discharged and need for further inpatient management and monitoring, patient will be admitted to the hospital. Drug therapy requiring intensive monitoring for toxicity: IV atropin, IV epinephrine, IV Levophed, Parenteral controlled substances: N/A Decision regarding elective major surgery with identified patient or procedure risk factors: N/A Decision regarding emergency major surgery: N/A Decision not to resuscitate or to de-escalate care because of poor prognosis: N/A Diagnosis or treatment significantly limited by social determinants of health: N/A Critical Care Note Critical Care Time?: No Stability Stability form required: No Heart Score Heart Score: Heart Score Response (Comments) Value History N/A 0 EKG N/A 0 Age N/A 0 Risk Factors N/A 0 Troponin N/A 0 Total 0 I personally scribed for JEROMY BLUNT MD ([email or web address]) on 12/03/24 at 02:54. Electronically submitted by Antonio Schwartz ([email or web address]). JEROMY BLUNT MD Dec 03, 2024 00:22
[2024-12-03 00:24] LABS: Band Neutrophils % (manual) 0; Basophils % (manual) 0 (0.0-2.0); Blast Cells 0; Metamyelocytes % 0; Myelocytes % 0; Promyelocytes % 0; Reactive Lymphocytes 0
[2024-12-03 00:34] LABS: INR 1.36 (0.9-1.15)
[2024-12-03] MEDS: EPINEPHrine HCL 250 ML IV ONE (00:34)
[2024-12-03 00:39] LABS: Alanine Aminotransferase 14 U/L (7-40); Anion Gap 10 (5-15); Aspartate Aminotransferase 22 U/L (13-40); BUN/Creatinine Ratio 10.6 (10.0-20.0); Carbon Dioxide 22 mmol/L (20-31); Chloride 106 mmol/L (98-107); Lipase 18 U/L (12-53); Magnesium 1.7 mg/dL (1.6-2.6); Sodium 138 mmol/L (136-145)
[2024-12-03 00:40] LABS: Bilirubin, Total 0.4 mg/dL (0.2-1.0)
[2024-12-03 00:44] LABS: Alkaline Phosphatase 366 U/L (46-116); Blood Urea Nitrogen 40 mg/dL (9-23); Glucose 274 mg/dL (74-106); Lactic Acid w/Reflex 2.4 mmol/L (0.4-2.0); Potassium 5.8 mmol/L (3.5-5.1)
[2024-12-03 00:45] LABS: Albumin 2.4 g/dL (3.2-4.8); Total Protein 4.3 g/dL (5.7-8.2)
[2024-12-03] MEDS ORDERED: NOREPINEPHRINE 8 MG/250ML KIT 250 ML IV SCH (00:45)
--- NOTE | 2024-12-03 00:50 | DVH ---
CHEST RADIOGRAPH Indication: Bradycardia, hypotension Technique: Single frontal view of the chest was obtained COMPARISON: CXRP on DOS: 09/16/22, CHEST PORTABLE on DOS: 09/16/22, CXRP on DOS: 01/25/22, CXR1 on DOS: 01/24/22, CXRP on DOS: 01/22/22 FINDINGS: Lines and Tubes: None Lungs: Lung volumes are low. Pulmonary vascular congestion. No definite pulmonary infiltrates noted. Pleura: No effusion. No pneumothorax. Cardiomediastinal contours: Marked cardiomegaly possibly related to pericardial effusion. IMPRESSION: Marked cardiomegaly possibly related to pericardial effusion. Low lung volumes. Pulmonary vascular co ngestion.
[2024-12-03 00:52] LABS: Eosinophils % (manual) 20 (0-7); Lymphocytes % (manual) 10 (10.0-50.0); Monocytes % (manual) 8 (0-12)
[2024-12-03 00:53] LABS: Anisocytosis Slight; Macrocytosis Slight; Platelet Estimate Decreased
[2024-12-03] MEDS: NOREPINEPHRINE 8 MG/250ML KIT 250 ML IV SCH (01:07)
[2024-12-03] MEDS: SODIUM CHLORIDE 0.9% 1,000 ML IV ONE ×3 (01:08→03:17)
[2024-12-03] MEDS: ALBUTEROL SULF 2.5 MG/0.5ML(0.5%) NEB SOLN NEB ONE (01:23)
[2024-12-03 01:40] LABS: Blood Alcohol < 3.0 mg/dL (<10)
[2024-12-03] MEDS: FUROSEMIDE 20 MG/2 ML VIAL IV ONE (02:03)
[2024-12-03] MEDS: DEXTROSE (50%) 50ML SYRG IV ONE (03:06)
[2024-12-03] MEDS: InsuLIN REG 1unit/0.01ml Soln (100units/ml) IV ONE (03:06)
[2024-12-03] MEDS: CALCIUM GLUC 1,000mg/50ml-NS 50 ML IV ONE (03:06)
[2024-12-03] MEDS: SODIUM BICARB 8.4% 50Meq/50ml SYR INJ IV ONE (03:06)
[2024-12-03] MEDS: cefTRIAXone 1GM/50ML D5W 50 ML IV ONE (03:10)
--- NOTE | 2024-12-03 03:54 | DVH ---
EXAM: CT HEAD WITHOUT CONTRAST INDICATION: Syncope, possible seizure-like activity TECHNIQUE: CT of the head without intravenous contrast. Radiation Dose Information: CT Dose: CTDI volume is 29.51 mGy. Dose-length product is 1942.86 mGy*cm The dose indicators for CT are the volume Computed Tomography (CT) Dose Index (CTDIvol) and the Dose Length Product (DLP), and are measured in units of mGy and mGy-cm, respectively. These indicators are not patient dose, but values generated from the CT scanner acquisition factors. The report includes radiation exposure data for exposures received during this examination. COMPARISON: HEAD WITHOUT CONTRAST on DOS: 09/16/22 FINDINGS: There is no evidence of acute intracranial hemorrhage, extra-axial collection, mass effect, midline s hift, herniation or hydrocephalus. There is atrophy. Bilateral basal ganglia calcifications. The arevalo-white differentiation is intact. Patchy periventricular and subcortical white matter hypoattenuation is nonspecific but may be related to small vessel ischemic disease. The visualized paranasal sinuses and mastoid air cells are clear. The surrounding soft tissues and osseous structures are unremarkable. IMPRESSION: 1. No acute intracranial abnormality.
--- NOTE | 2024-12-03 03:55 | ECG ---
[facility] Test Date: 2024-12-02 Test Time: 23:38:35 Pat Name: PINO FERRERA Department: ER Room: 0291T Gender: F I&C Tech: ER : 1965 Requested By: JEROMY BLUNT Order Number: [id number] Reading MD: Balta Rosa Measurements Intervals [facility] Rate: 52 P: 0 ID: 0 QRS: 208 QRSD: 136 T: 112 QT: 483 QTc: 450 Interpretive Statements Junctional rhythm Nonspecific intraventricular conduction delay Anteroseptal infarct, age indeterminate Lateral leads are also involved Electronically Signed On 12-07-2024 23:00:31 PDT by Balta Rosa Please click the below link to view image of tracing.
--- NOTE | 2024-12-03 04:12 | DVH ---
EXAM: CT CHST AB PEL WO CON-NO IV/ORAL History: Abdominal pain, abdominal distention, hepatitis with ascites Comparison Study: CT scan of the abdomen pelvis performed on 03/03/2023. TECHNIQUE: Multidetector CT of the chest, abdomen and pelvis was performed from lower neck to pubic s ymphysis without the use of intravenous contrast. Coronal and sagittal multiplanar reformats were per formed by the technologist on a separate workstation. Radiation Dose Information: CT Dose: CTDI volume is 23.6 mGy. Dose-length product is 1461.3 mGy*cm FINDINGS: Lower neck: Normal thyroid. Lungs: Bilateral lower lobe opacities. No pulmonary nodule. Mild pulmonary edema. Central airways: Patent. Pleura: No pleural effusion or significant pneumothorax. Heart/Vascular Structures: Normal heart size. Large pericardial effusion. The fluid measures simple fluid attenuation (7 Hounsfield units). Normal caliber thoracic aorta and main pulmonary artery. Lymph Nodes: No adenopathy. Liver: The liver is small. Limited evaluation for hepatic lesions on noncontrast CT. Trace pneumobili a Gallbladder and Biliary Tree: The gallbladder is surgically absent. No evidence of biliary ductal di latation Spleen: Unremarkable. Pancreas: Unremarkable. Adrenal Glands: Unremarkable. Kidneys: No renal calculi or hydronephrosis. Bladder: Unremarkable. GI tract: Stomach is normal in caliber. No bowel wall thickening or dilatation. The appendix is not v isualized; however, no secondary findings of acute appendicitis identified. Peritoneum: Large volume ascites. No evidence of pneumoperitoneum. Lymphadenopathy: Scattered mesenteric and retroperitoneal lymph nodes which are subcentimeter in size . Vasculature: The visualized abdominal aorta is normal in size and caliber. Evaluation of the vascular structures is limited due to lack of intravenous contrast. Pelvic Organs: Unremarkable. Musculoskeletal: No acute osseous abnormality. Soft tissues: Diffuse soft tissue edema. Umbilical hernia containing ascites. IMPRESSION: 1. Large pericardial effusion. 2. Pulmonary edema. Bibasilar atelectasis. 3. Large volume ascites. 4. Cirrhosis. 5. Increased number of retroperitoneal and mesenteric lymph nodes. All CT scans at this medical facility are performed using dose modulation techniques as appropriate t o a performed exam including the following: Automated exposure control was utilized; adjustment of th e MA and/or KV according to patient size; and use of iterative reconstruction technique.
[2024-12-03] MEDS ORDERED: MORPHINE SULFATE INJ 2 MG/ml SYRG IV PRN (04:15)
[2024-12-03] MEDS ORDERED: NITROGLYCERIN 0.4 MG SL TAB SL PRN (04:15)
[2024-12-03] MEDS ORDERED: ONDANSETRON HCL 4 MG/2 ML VIAL IV PRN (04:15)
--- NOTE | 2024-12-03 04:22 | DVHHP2 ---
History of Present Illness Reason for Visit: Syncope History of Present Illness 59-year-old female presents for evaluation of syncopal episode. Per ED records and personnel patient had two syncopal episodes at home prior to arrival. In route patient blood pressure was noted to be in the 60s and heart rate in the 30s. On arrival patient was placed on epinephrine drip for a short period of time and weaned off. Currently she is on Levophed for hypotension. Patient is legally blind and dialysis dependent. Denies chest pain or shortness for breath at the moment. No unilateral weakness. No headache. No other acute complaints. Past Medical History CHF, diabetes end-stage disease, hypertension liver cirrhosis Past Surgical History Appendectomy, dialysis access Family History Noncontributory Smoke: No ALCOHOL: none Drugs: None Lives: with Family Review of Systems Review of Systems Review of systems are currently negative otherwise addressed in HPI. Allergies: Coded Allergies: No Known Drug Allergy (Unverified Allergy, Unknown, 11/20/24) Medications Current Medications Medications Dose Ordered Sig/Honey Route Start Time Stop Time Status Last Admin Dose Admin Norepinephrine Bitartrate 250 ml @ 3.75 mls/hr Q24H IV 12/03/24 00:45 12/03/24 01:07 3.75 MLS/HR Exam Vital Signs Vital Signs Date Time Temp Pulse Resp B/P (MAP) Pulse Ox O2 Delivery O2 Flow Rate FiO2 12/03/24 03:38 95.9 81 17 117/87 (97) 88 95.9 12/03/24 01:20 Nasal Cannula* 3 32 Exam Gen: 59-year-old female in mild Skin: Warm, dry, normal color and texture, no rash. HEENT: Normocephalic atraumatic, mucous membranes moist and pink. Neck: Cervical and supraclavicular nodes normal without enlargement, trachea is midline, thyroid gland is normal without masses. Pulmonary: Clear to auscultation and percussion bilaterally. Cardiac: Regular rate and rhythm. No murmur Abdomen: Soft, nontender, nondistended, bowel sounds present all 4 quadrants, no guarding, no rigidity, no organomegaly. Extremities: No cyanosis, clubbing, no edema Neuro: Cranial nerves II through XII grossly intact, normal affect and speech, no focal motor deficits. Labs/Xrays ORDERING PHYSICIAN: JEROMY BLUNT MD PROCEDURE(s): CXR1 - CHEST XRAY 1 VIEW REASON: Bradycardia, hypotension ORDER NUMBER(s): [id number], ACCESSION NUMBER(s): [id number] CHEST RADIOGRAPH Indication: Bradycardia, hypotension Technique: Single frontal view of the chest was obtained COMPARISON: CXRP on DOS: 09/16/22, CHEST PORTABLE on DOS: 09/16/22, CXRP on DOS: 01/25/22, CXR1 on DOS: 01/24/22, CXRP on DOS: 01/22/22 FINDINGS: Lines and Tubes: None Lungs: Lung volumes are low. Pulmonary vascular congestion. No definite pulmonary infiltrates noted. Pleura: No effusion. No pneumothorax. Cardiomediastinal contours: Marked cardiomegaly possibly related to pericardial effusion. IMPRESSION: Marked cardiomegaly possibly related to pericardial effusion. Low lung volumes. Pulmonary vascular congestion. Labs Test 12/03/24 03:04 12/02/24 23:59 Range/Units Lactic Acid Level 1.5 0.4-2.0 mmol/L Troponin I High Sensitivity 53 *H </=34 ng/L White Blood Count 6.5 4.4-10.8 10^3/uL Red Blood Count 3.02 L 4.0-5.20 10^6/uL Hemoglobin 9.8 L 12.2-16.2 g/dL Hematocrit 30.7 L 36.0-46.0 % Mean Corpuscular Volume 101.6 H 80.0-100.0 fL Mean Corpuscular Hemoglobin 32.6 H 28.0-32.0 pg Mean Corpuscular Hemoglobin Concent 32.0 32.0-36.0 g/dL Red Cell Distribution Width 14.7 H 11.8-14.3 % Platelet Count 121 L 140-450 10^3/uL Mean Platelet Volume 10.4 6.9-10.8 fL Neutrophils (%) (Auto) 37.0-80.0 % Lymphocytes (%) (Auto) 10.0-50.0 % Monocytes (%) (Auto) 0.0-12.0 % Eosinophils (%) (Auto) 0.0-7.0 % Basophils (%) (Auto) 0.0-2.0 % Neutrophils # (Auto) 1.6-8.6 10 ^3/uL Lymphocytes # (Auto) 0.4-5.4 10 ^3/uL Monocytes # (Auto) 0-1.3 10 ^3/uL Differential Total Cells Counted 100.0 100 Neutrophils % (Manual) 62 37.0-80.0 Band Neutrophils % (Manual) 0 Lymphocytes % (Manual) 10 10.0-50.0 Monocytes % (Manual) 8 0-12 Eosinophils % (Manual) 20 H 0-7 Basophils % (Manual) 0 0.0-2.0 Metamyelocytes % (manual) 0 Myelocytes % (Manual) 0 Promyelocytes % (Manual) 0 Blast Cells % (Manual) 0 Reactive Lymphocytes 0 Platelet Estimate Decreased Anisocytosis (manual) Slight Macrocytosis Slight Prothrombin Time 14.0 H 9.3-11.8 sec Prothrombin Time INR 1.36 H 0.9-1.15 Sodium Level 138 136-145 mmol/L Potassium Level 5.8 *H 3.5-5.1 mmol/L Chloride Level 106 98-107 mmol/L Carbon Dioxide Level 22 20-31 mmol/L Anion Gap 10 5-15 Blood Urea Nitrogen 40 H 9-23 mg/dL Creatinine 3.78 H 0.550-1.02 mg/dL Glomerular Filtration Rate Calc 13 >90 mL/min BUN/Creatinine Ratio 10.6 10.0-20.0 Serum Glucose 274 H 74-106 mg/dL Calcium Level 6.0 *L 8.7-10.4 mg/dL Magnesium Level 1.7 1.6-2.6 mg/dL Total Bilirubin 0.4 0.2-1.0 mg/dL Aspartate Amino Transferase (AST) 22 13-40 U/L Alanine Aminotransferase (ALT) 14 7-40 U/L Alkaline Phosphatase 366 H 46-116 U/L Ammonia 31 11-32 umol/L Total Protein 4.3 L 5.7-8.2 g/dL Albumin 2.4 L 3.2-4.8 g/dL Lipase 18 12-53 U/L Thyroid Stimulating Hormone (TSH) 10.57 H 0.55-4.78 uIU/mL Plasma/Serum Blood Alcohol < 3.0 <10 mg/dL Assessment/Plan Assessment/Plan Assessment Syncope End-stage renal disease, dialysis dependent Diabetes mellitus Anemia of chronic disease Electrolyte imbalance Legally blind Plan Admit the patient to ICU to the hospitalist Nephrology consultation Thyroid panel pending CT of the head/chest/abdomen pending Continue treatment per orders Total critical care time excluding procedures performed is 55 minutes. Plan discussed with: Other My Orders Orders - JUVE FRANCISCO Procedure Category Date Status Time Thyroid Panel LAB 12/03/24 Verified 04:10 Potassium LAB 12/03/24 Verified 05:00 Consistent DIET 12/03/24 Verified Carb(Ccho)Diabetes Breakfast *[facility] CONS 12/03/24 Verified -[place] 04:10 Furosemide Tablet PHA 12/03/24 Verified (Lasix Tablet) 10:00 Midodrine Tablet PHA 12/03/24 Verified (Proamatine Tablet) 06:00 Atorvastatin (Lipitor) PHA 12/03/24 Verified 22:00 Apixaban (Eliquis) PHA 12/03/24 Verified 10:00 Sevelamer (Renagel) PHA 12/03/24 Verified 08:00 Date of Service: Dec 03, 2024 Billing Provider: JUVE FRANCISCO Common Visit Codes: [id number] CARE 30-74 MIN JUVE FRANCISCO Dec 03, 2024 04:22
[2024-12-03] MEDS: ALBUMIN 25% 100 ML IV ONE (04:29)
[2024-12-03] MEDS: CALCIUM GLUC 1,000mg/50ml-NS 50 ML IV SCH (04:29)
[2024-12-03 05:06] LABS: COVID19 ANTIGEN SOFIA FIA NEGATIVE (NEGATIVE); Rapid Influenza A Negative (Negative); Rapid Influenza B Negative (Negative)
[2024-12-03] MEDS: InsuLIN REG 1unit/0.01ml Soln (100units/ml) SC SCH (06:35)
[2024-12-03] MEDS: ACCU-CHEK COMFORT CURVE STRIP VI SCH (06:35)
[2024-12-03] MEDS: MIDODRINE HCL 10 MG TAB PO SCH (06:38)
[2024-12-03] MEDS: DEXTROSE (50%) 50ML SYRG IV PRN (07:01)
[2024-12-03] MEDS: SEVELAMER 800 MG TAB PO SCH (09:17)
[2024-12-03] MEDS: FUROSEMIDE 20 MG TAB PO SCH (10:00)
[2024-12-03] MEDS: APIXABAN 2.5 MG TAB PO SCH (10:00)
--- NOTE | 2024-12-03 10:27 | DVHINCON2 ---
Date of service: Dec 03, 2024 Referring Physician Carson Noyola, nurse practitioner Reason for Consultation End-stage renal disease to manage hemodialysis History of Present Illness Patient is 59-year-old female with past medical history significant for Anemia, Angina, CAD, CHF, CVA, Depression, DM, ESRD on hemodialysis every Tuesday and Tuesday, Gout, High Lipids , HTN, and liver cirrhosis is admitted after syncopal episode on admission Nephrology is consulted to manage her hemodialysis Past Medical History Anemia, Angina, CAD, CHF, CVA, Depression, DM, ESRD on hemodialysis every Tuesday and Tuesday, Gout, High Lipids , HTN, and liver cirrhosis Past Surgical History AV fistula Appendectomy paracentesis Allergies: Coded Allergies: No Known Drug Allergy (Unverified Allergy, Unknown, 11/20/24) Home Meds Active Scripts Doxycycline Monohydrate (Doxycycline Monohydrate) 100 Mg Tab, 100 MG PO Q12HR for 7 Days, #14 TAB Prov:PAVEL GUAMAN [employer] TECHNICIAN 03/07/23 Reported Medications Cetirizine Hcl (Cetirizine Hcl) 5 Mg Tab, 1 TAB DAILY 09/05/22 Pantoprazole Sodium Sesquihydr (Pantoprazole Sodium Dr) 40 Mg Tab, 1 TAB DAILY 09/05/22 Diltiazem Hcl (DILTIAZEM HCL ER) 240 Mg Cap, 1 CAP PO DAILY 09/05/22 Benzonatate (Benzonatate) 100 Mg Cap, 100 MG PO TIDPRN PRN for FOR COUGH, CAP 11/04/21 Hydrocodone-Acetaminophen (Hydrocodone Bitartrate/AC 5-325 mg) 1 Tab Tab, 1 TAB PO TID for PAIN, TAB 11/04/21 Midodrine Hcl (Midodrine Hcl) 5 Mg Tab, 5 MG PO DAILY for HYPERTENSION, TAB 11/04/21 Tramadol Hcl (Tramadol Hcl) 50 Mg Tab, 50 MG PO Q6HPRN PRN for PAIN SCALE 7 THRU 10, MG 11/04/21 Ferrous Sulfate (Ferrous Sulfate) 325 Mg Tab, 325 MG PO DAILY for IRON DEFICIENC Y, MG 11/04/21 Insulin Regular (Human) (Humulin R) 100 Unit/Ml Inj, 8 UNIT SC QPM for DIABETES, INJ 11/04/21 Apixaban Base (ELIQUIS) 2.5 Mg Tab, 2.5 MG PO DAILY for ARRHYTHMIA, TAB 07/24/21 Trazodone HCl (Trazodone Hydrocloride) 100 Mg Tab, 100 MG PO HS for DEPRESSION, TAB 07/24/21 Hydroxyzine Hcl (Hydroxyzine Hcl) 25 Mg Tab, 25 MG PO BID for ANXIETY 06/04/21 Acetaminophen W/ Codeine (Tylenol W/Cod #3) 1 Tab Tb, 1 TAB PO Q6HP for PAIN 06/04/21 [place]-3 Fatty Acids ([place] Oil) 1,000 Mg Cap, 1000 MG PO DAILY for SUPPLEMENT 06/04/21 Carvedilol (Coreg) 6.25 Mg Tab, 6.25 MG PO BID for HYPERTENSION 01/14/21 Amitriptyline HCl (Amitriptyline Hydrochlori) 75 Mg Tab, 75 MG PO HS for ANXIETY, TAB 01/14/21 Hydralazine HCl (Hydralazine HCl) 25 Mg Tab, 25 MG PO Q8HPRN for HYPERTENSION, TAB 01/14/21 Atorvastatin Calcium (Lipitor) 20 Mg Tab, 20 MG PO HS for HYPERLILIDEMIA, TAB 01/14/21 Furosemide (Furosemide) 80 Mg Tab, 80 MG PO DAILY for EDEMA 01/27/18 Sevelamer Carbonate (Renvela) 800 Mg Tab, 2 TAB PO TIDWM 01/27/18 Current Medications Current Medications Medications (Trade) Dose Ordered Sig/Honey Route PRN Reason Start Time Stop Time Status Last Admin Norepinephrine Bitartrate 250 ml @ 3.75 mls/hr Q24H IV 12/03/24 00:45 12/03/24 00:41 DC Norepinephrine Bitartrate 250 ml @ 3.75 mls/hr Q24H IV 12/03/24 00:45 12/03/24 01:07 Furosemide (Lasix Tablet) 60 mg DAILY PO 12/03/24 10:00 Midodrine (Proamatine Tablet) 10 mg TID@0600,1200,1800 PO 12/03/24 06:00 12/03/24 12:06 Atorvastatin Calcium (Lipitor) 20 mg HS PO 12/03/24 22:00 Apixaban (Eliquis) 2.5 mg DAILY PO 12/03/24 10:00 Sevelamer HCl (Renagel) 800 mg TIDWM PO 12/03/24 08:00 12/03/24 12:06 Calcium Gluconate/ Sodium Chloride 50 ml @ 100 mls/hr Q30M IV 12/03/24 04:15 12/03/24 05:14 DC 12/03/24 04:55 Diagnostic Test (Pha) (Accu-Chek Comfort Curve T) 1 strip Q6HR 12/03/24 06:00 12/03/24 12:06 Insulin Human Regular (InsuLIN R) Q6HR SC 12/03/24 06:00 12/03/24 12:07 Dextrose 50 ml UD PRN IV Blood Sugar LESS THAN 60 12/03/24 04:15 12/03/24 07:01 Ondansetron HCl (Zofran) 4 mg Q4HP PRN IV NAUSEA / VOMITING 12/03/24 04:15 Acetaminophen (Tylenol Tablet) 650 mg Q6HP PRN PO PAIN SCALE 1-3 OR TEMP>100.4 12/03/24 04:15 Nitroglycerin (Ntrostat Sublingual) 0.4 mg Q5MINP PRN SL FOR CHEST PAIN 12/03/24 04:15 Morphine Sulfate 2 mg Q30M PRN IV FOR CHEST PAIN 12/03/24 04:15 Family History: Diabetes mellitus G8 MOTHER, Onset:50's - 60 Family history: Cardiovascular disease G8 MOTHER (PALPITATIONS) Family history: Diabetes mellitus G8 MOTHER G8 FATHER G8 BROTHER G8 BROTHER Family history: Hypertension G8 MOTHER G8 FATHER Hypertension G8 MOTHER, Onset:40's - 50 Review of Systems All 12 item review of systems reviewed with the patient nonsignificant except what is mentioned in the history of present illness H&P Exam Vital Signs/I&O Vital Sign Date Time Temp Pulse Resp B/P (MAP) Pulse Ox O2 Delivery O2 Flow Rate FiO2 12/03/24 12:00 69 12/03/24 11:45 15 90/68 (75) 98 12/03/24 10:00 Nasal Cannula* 2 28 12/03/24 08:00 98.1 98.1 Intake and Output 12/02/24 12/03/24 19:00 07:00 Intake Total 615 ml Balance 615 ml Intake IV Total 615 ml Physical Exam Patient is awake alert Lungs clear to auscultation bilaterally Cardiac exam regular rate and rhythm GI soft nontender normal Extremity 1+ edema Neuro patient is awake and alert Labs/Diagnostic Data Labs/Diagnostic Data Laboratory Tests Test 12/03/24 12:00 12/03/24 08:30 12/03/24 06:55 12/03/24 06:29 Range/Units POC Glucose 172 H 157 H 66 L 66 L 70-106 mg/dl Test 12/03/24 06:10 12/03/24 05:16 12/03/24 04:25 12/03/24 03:04 Range/Units POC Glucose 55 L 70-106 mg/dl Potassium Level 5.6 *H 3.5-5.1 mmol/L Phosphorus Level 4.3 2.4-5.1 mg/dL Influenza Type A Antigen Negative Negative Influenza Type B Antigen Negative Negative SARS-CoV-2 Antigen (Rapid) Negative NEGATIVE Lactic Acid Level 1.5 0.4-2.0 mmol/L Troponin I High Sensitivity 53 *H </=34 ng/L Test 12/03/24 00:34 12/02/24 23:59 Range/Units Troponin I High Sensitivity 56 *H 51 *H </=34 ng/L White Blood Count 6.5 4.4-10.8 10^3/uL Red Blood Count 3.02 L 4.0-5.20 10^6/uL Hemoglobin 9.8 L 12.2-16.2 g/dL Hematocrit 30.7 L 36.0-46.0 % Mean Corpuscular Volume 101.6 H 80.0-100.0 fL Mean Corpuscular Hemoglobin 32.6 H 28.0-32.0 pg Mean Corpuscular Hemoglobin Concent 32.0 32.0-36.0 g/dL Red Cell Distribution Width 14.7 H 11.8-14.3 % Platelet Count 121 L 140-450 10^3/uL Mean Platelet Volume 10.4 6.9-10.8 fL Neutrophils (%) (Auto) 37.0-80.0 % Lymphocytes (%) (Auto) 10.0-50.0 % Monocytes (%) (Auto) 0.0-12.0 % Eosinophils (%) (Auto) 0.0-7.0 % Basophils (%) (Auto) 0.0-2.0 % Neutrophils # (Auto) 1.6-8.6 10 ^3/uL Lymphocytes # (Auto) 0.4-5.4 10 ^3/uL Monocytes # (Auto) 0-1.3 10 ^3/uL Differential Total Cells Counted 100.0 100 Neutrophils % (Manual) 62 37.0-80.0 Band Neutrophils % (Manual) 0 Lymphocytes % (Manual) 10 10.0-50.0 Monocytes % (Manual) 8 0-12 Eosinophils % (Manual) 20 H 0-7 Basophils % (Manual) 0 0.0-2.0 Metamyelocytes % (manual) 0 Myelocytes % (Manual) 0 Promyelocytes % (Manual) 0 Blast Cells % (Manual) 0 Reactive Lymphocytes 0 Platelet Estimate Decreased Anisocytosis (manual) Slight Macrocytosis Slight Prothrombin Time 14.0 H 9.3-11.8 sec Prothrombin Time INR 1.36 H 0.9-1.15 Sodium Level 138 136-145 mmol/L Potassium Level 5.8 *H 3.5-5.1 mmol/L Chloride Level 106 98-107 mmol/L Carbon Dioxide Level 22 20-31 mmol/L Anion Gap 10 5-15 Blood Urea Nitrogen 40 H 9-23 mg/dL Creatinine 3.78 H 0.550-1.02 mg/dL Glomerular Filtration Rate Calc 13 >90 mL/min BUN/Creatinine Ratio 10.6 10.0-20.0 Serum Glucose 274 H 74-106 mg/dL Lactic Acid Level 2.4 *H 0.4-2.0 mmol/L Calcium Level 6.0 *L 8.7-10.4 mg/dL Magnesium Level 1.7 1.6-2.6 mg/dL Total Bilirubin 0.4 0.2-1.0 mg/dL Aspartate Amino Transferase (AST) 22 13-40 U/L Alanine Aminotransferase (ALT) 14 7-40 U/L Alkaline Phosphatase 366 H 46-116 U/L Ammonia 31 11-32 umol/L Total Protein 4.3 L 5.7-8.2 g/dL Albumin 2.4 L 3.2-4.8 g/dL Lipase 18 12-53 U/L Thyroid Stimulating Hormone (TSH) 10.57 H 0.55-4.78 uIU/mL Plasma/Serum Blood Alcohol < 3.0 <10 mg/dL Assessment End-stage renal disease on hemodialysis Hyperkalemia due to dietary indiscretion Diabetes mellitus type 2 Chronic diastolic heart failure AFib with RVR Syncope Hypotension Liver cirrhosis Anemia of chronic kidney disease Recommendation Hemodialysis today Emergent medical treatment for hyperkalemia Lokelma 10 g p.o. Epogen 22234 IV with hemodialysis Resume home medication Midodrine Cardiology consult We will continue to follow Patient seen and examined by myself today. I discussed my plan of care with the patient and primary nurse at the bedside I would like to thank Carson for the consult, will follow up Plan discussed with: Patient MARÍA AMADOR MD Dec 03, 2024 10:27
--- NOTE | 2024-12-03 15:11 | DVHSR ---
APPROVED REPORT EXAM: Two-dimensional and M-mode echocardiogram with Doppler and color Doppler. Blood Pressure: 98/63 mmHg INDICATION Rule out pericardial effusion RISK FACTORS Height: 66, Weight: 175 DIMENSIONS LVDd3.6 (3.8-5.7cm)LA (2D)3.7 (1.9-4.0cm)Aortic Root3.2 (2.0-3.7cm) LVDs2.4 (2.5-4.0cm)LA (MM) (1.9-4.0cm)Aortic Cusp Exc1.2 (1.5-2.0cm) EF (%) 63.0 (55-70%)Rt. Atrium4.5 (1.9-4.0cm)Asc. Aorta cm IVSd1.3 (0.7-1.1cm)RV (D) (1.8-2.4cm) PWd1.3 (0.7-1.1cm) Mitral Valve MitralMitral Stenosis E wave1.03m/sMV Mean GR.mmHg A wavem/sMV Peak GR.51mmHg E/A ratio0.02D MVAcm2 Aortic Valve Aortic ValveAortic Stenosis V11.07m/Bipin Mean GR.4mmHg V21.39m/Bipin Peak GR.8mmHg LVOT Diameter2.0 (1.8-2.4cm)Doppler AVA2.42cm2 Tricuspid Valve TR Velocity3.00m/s [id number] Conclusion lvef 60% by visual estimate severe LVH RV enlarged moderate to large pericardail effusion noted, this is stable, pt has hx of effusion x 3years , No HD compromise noted torrential triicuspid regurg aortic sclerosis
--- NOTE | 2024-12-03 15:18 | DVHPN2 ---
Subjective Patient denies any symptoms. Reviewed: Care Plan, H&P, Labs, Medications, Previous Orders Changes from previous H/P or p: No Changes General: Per HPI Objective Vitals Vital Signs Date Time Temp Pulse Resp B/P (MAP) Pulse Ox O2 Delivery O2 Flow Rate FiO2 12/03/24 14:00 107 12/03/24 14:00 19 87/63 (71) 98 12/03/24 14:00 Nasal Cannula* 2 28 12/03/24 12:00 98.0 98.0 Intake/Output Intake and Output 12/03/24 07:00 Intake Total 615 ml Balance 615 ml Intake IV Total 615 ml General Appearance: Alert, Cooperative, No acute distress HEENT: Atraumatic, PERRLA Lungs: Clear to auscultation, Normal air movement Cardiovascular: Normal S1, Normal S2 Abdomen: Normal bowel sounds, Other (Ascites) Musculoskeletal: Normal sensory function, Normal motor function Neuro: Normal speech Skin: Dry, Intact Psych/Mental Status: Mental status NL, Mood NL Medications Current Medications Medications Dose Ordered Sig/Honey Route Start Time Stop Time Status Last Admin Dose Admin Norepinephrine Bitartrate 250 ml @ 3.75 mls/hr Q24H IV 12/03/24 00:45 12/03/24 01:07 3.75 MLS/HR Furosemide 60 mg DAILY PO 12/03/24 10:00 Midodrine 10 mg TID@0600,1200,1800 PO 12/03/24 06:00 12/03/24 12:06 10 MG Atorvastatin Calcium 20 mg HS PO 12/03/24 22:00 Apixaban 2.5 mg DAILY PO 12/03/24 10:00 Sevelamer HCl 800 mg TIDWM PO 12/03/24 08:00 12/03/24 12:06 800 MG Diagnostic Test (Pha) 1 strip Q6HR 12/03/24 06:00 12/03/24 12:06 1 STRIP Insulin Human Regular Q6HR SC 12/03/24 06:00 12/03/24 12:07 3 UNITS Dextrose 50 ml UD PRN IV 12/03/24 04:15 12/03/24 07:01 50 ML Ondansetron HCl 4 mg Q4HP PRN IV 12/03/24 04:15 Acetaminophen 650 mg Q6HP PRN PO 12/03/24 04:15 Nitroglycerin 0.4 mg Q5MINP PRN SL 12/03/24 04:15 Morphine Sulfate 2 mg Q30M PRN IV 12/03/24 04:15 Laboratory Results Laboratory Tests 12/02/24 23:59 12/03/24 05:16 Chemistry Test 12/02/24 23:59 12/03/24 05:16 Albumin 2.4 g/dL (3.2-4.8) L Calcium Level 6.0 mg/dL (8.7-10.4) *L Magnesium Level 1.7 mg/dL (1.6-2.6) Total Protein 4.3 g/dL (5.7-8.2) L Phosphorus Level 4.3 mg/dL (2.4-5.1) Coagulation Test 12/02/24 23:59 Prothrombin Time 14.0 sec (9.3-11.8) H Prothrombin Time INR 1.36 (0.9-1.15) H Lipid panel Test 12/02/24 23:59 Lipase 18 U/L (12-53) LFT Test 12/02/24 23:59 Alanine Aminotransferase (ALT) 14 U/L (7-40) Alkaline Phosphatase 366 U/L (46-116) H Aspartate Amino Transferase (AST) 22 U/L (13-40) Total Bilirubin 0.4 mg/dL (0.2-1.0) HgA1c, TSH Test 12/02/24 23:59 Thyroid Stimulating Hormone (TSH) 10.57 uIU/mL (0.55-4.78) H Labs and/or images reviewed: Labs reviewed by me, Image(s) reviewed by me Assessment/Plan Assessment/Plan Impression: -hypotension -cirrhosis -pericardial effusion -ESRD with hemodialysis -hypoglycemia -syncope -hyperkalemia -hypercalcemia -acute hypoxic respiratory failure -ascites Plan: -nephrology consultation -cardiology consultation: Pericardial effusion, questionable tamponade -patient may require paracentesis -potassium lowering agents -calcium replete -radiology consultation for paracentesis -continue O2 supplementation to keep saturation greater than 92% -continue norepinephrine drip to keep map greater than 65 mmHg -consistent carbohydrate diet, check Accu-Cheks q.6 hours -repeat labs in a.m. -plans for HD Critical care time spent with patient discussing and formulating plan of care: 40 minutes. This does not include time spent performing procedures. This medical document was created using an electronic medical record system with [employer] computerized dictation system. Although this document has been carefully reviewed, there may still be some phonetic and typographical errors. These areas are purely typographical due to imperfections of the software programs, and do not reflect any compromise in the patient's medical care. Plan discussed with: Patient, Other (RN) Date of Service: Dec 03, 2024 Billing Provider: PAVEL GUAMAN NP Common Visit Codes: [id number] CARE 30-74 MIN PAVEL GUAMAN NP Dec 03, 2024 15:18
--- NOTE | 2024-12-03 16:18 | DVH ---
ULTRASOUND ABDOMEN limited, 4 QUADRANTS INDICATION: FLUID CHECK Evaluate for ascites. TECHNIQUE: The four quadrants of the abdomen were scanned in dupont-scale to assess for the presence of ascites. N o solid organ assessment was performed. FINDINGS/IMPRESSIONS: There is moderate volume ascites in all 4 quadrants of the abdomen.
--- NOTE | 2024-12-03 16:21 | DVHINCON2 ---
Date of service: Dec 03, 2024 History of Present Illness 59 yo F hx of pericardial effusion, hx of esrd on hd, hx of venous disease, hx of weekly para admitted for dizziness syncope and hypotension. pt requesting to have her paracentesis done. Past Medical History reviewed Family History: Diabetes mellitus G8 MOTHER, Onset:50's - 60 Family history: Cardiovascular disease G8 MOTHER (PALPITATIONS) Family history: Diabetes mellitus G8 MOTHER G8 FATHER G8 BROTHER G8 BROTHER Family history: Hypertension G8 MOTHER G8 FATHER Hypertension G8 MOTHER, Onset:40's - 50 Allergies: Coded Allergies: No Known Drug Allergy (Unverified Allergy, Unknown, 11/20/24) Home Meds Active Scripts Doxycycline Monohydrate (Doxycycline Monohydrate) 100 Mg Tab, 100 MG PO Q12HR for 7 Days, #14 TAB Prov:PAVEL GUAMAN DIRECTOR OF RESIDENTIAL SERVICES 03/07/23 Reported Medications Cetirizine Hcl (Cetirizine Hcl) 5 Mg Tab, 1 TAB DAILY 09/05/22 Pantoprazole Sodium Sesquihydr (Pantoprazole Sodium Dr) 40 Mg Tab, 1 TAB DAILY 09/05/22 Diltiazem Hcl (DILTIAZEM HCL ER) 240 Mg Cap, 1 CAP PO DAILY 09/05/22 Benzonatate (Benzonatate) 100 Mg Cap, 100 MG PO TIDPRN PRN for FOR COUGH, CAP 11/04/21 Hydrocodone-Acetaminophen (Hydrocodone Bitartrate/AC 5-325 mg) 1 Tab Tab, 1 TAB PO TID for PAIN, TAB 11/04/21 Midodrine Hcl (Midodrine Hcl) 5 Mg Tab, 5 MG PO DAILY for HYPERTENSION, TAB 11/04/21 Tramadol Hcl (Tramadol Hcl) 50 Mg Tab, 50 MG PO Q6HPRN PRN for PAIN SCALE 7 THRU 10, MG 11/04/21 Ferrous Sulfate (Ferrous Sulfate) 325 Mg Tab, 325 MG PO DAILY for IRON DEFI CIENCY, MG 11/04/21 Insulin Regular (Human) (Humulin R) 100 Unit/Ml Inj, 8 UNIT SC QPM for DIABETES, INJ 11/04/21 Apixaban Base (ELIQUIS) 2.5 Mg Tab, 2.5 MG PO DAILY for ARRHYTHMIA, TAB 07/24/21 Trazodone HCl (Trazodone Hydrocloride) 100 Mg Tab, 100 MG PO HS for DEPRESSION, TAB 07/24/21 Hydroxyzine Hcl (Hydroxyzine Hcl) 25 Mg Tab, 25 MG PO BID for ANXIETY 06/04/21 Acetaminophen W/ Codeine (Tylenol W/Cod #3) 1 Tab Tb, 1 TAB PO Q6HP for PAIN 06/04/21 [place]-3 Fatty Acids ([place] Oil) 1,000 Mg Cap, 1000 MG PO DAILY for SUPPLEMENT 06/04/21 Carvedilol (Coreg) 6.25 Mg Tab, 6.25 MG PO BID for HYPERTENSION 01/14/21 Amitriptyline HCl (Amitriptyline Hydrochlori) 75 Mg Tab, 75 MG PO HS for ANXIETY, TAB 01/14/21 Hydralazine HCl (Hydralazine HCl) 25 Mg Tab, 25 MG PO Q8HPRN for HYPERTENSION, TAB 01/14/21 Atorvastatin Calcium (Lipitor) 20 Mg Tab, 20 MG PO HS for HYPERLILIDEMIA, TAB 01/14/21 Furosemide (Furosemide) 80 Mg Tab, 80 MG PO DAILY for EDEMA 01/27/18 Sevelamer Carbonate (Renvela) 800 Mg Tab, 2 TAB PO TIDWM 01/27/18 Current Medications Current Medications Medications (Trade) Dose Ordered Sig/Honey Route PRN Reason Start Time Stop Time Status Last Admin Norepinephrine Bitartrate 250 ml @ 3.75 mls/hr Q24H IV 12/03/24 00:45 12/03/24 00:41 DC Norepinephrine Bitartrate 250 ml @ 3.75 mls/hr Q24H IV 12/03/24 00:45 12/03/24 01:07 Furosemide (Lasix Tablet) 60 mg DAILY PO 12/03/24 10:00 Midodrine (Proamatine Tablet) 10 mg TID@0600,1200,1800 PO 12/03/24 06:00 12/03/24 12:06 Atorvastatin Calcium (Lipitor) 20 mg HS PO 12/03/24 22:00 Apixaban (Eliquis) 2.5 mg DAILY PO 12/03/24 10:00 Sevelamer HCl (Renagel) 800 mg TIDWM PO 12/03/24 08:00 12/03/24 12:06 Calcium Gluconate/ Sodium Chloride 50 ml @ 100 mls/hr Q30M IV 12/03/24 04:15 12/03/24 05:14 DC 12/03/24 04:55 Diagnostic Test (Pha) (Accu-Chek Comfort Curve T) 1 strip Q6HR 12/03/24 06:00 12/03/24 12:06 Insulin Human Regular (InsuLIN R) Q6HR SC 12/03/24 06:00 12/03/24 12:07 Dextrose 50 ml UD PRN IV Blood Sugar LESS THAN 60 12/03/24 04:15 12/03/24 07:01 Ondansetron HCl (Zofran) 4 mg Q4HP PRN IV NAUSEA / VOMITING 12/03/24 04:15 Acetaminophen (Tylenol Tablet) 650 mg Q6HP PRN PO PAIN SCALE 1-3 OR TEMP>100.4 12/03/24 04:15 Nitroglycerin (Ntrostat Sublingual) 0.4 mg Q5MINP PRN SL FOR CHEST PAIN 12/03/24 04:15 Morphine Sulfate 2 mg Q30M PRN IV FOR CHEST PAIN 12/03/24 04:15 Review of Systems 10 pt ros otherwise negative Vital Signs Vital Signs Date Time Temp Pulse Resp B/P (MAP) Pulse Ox O2 Delivery O2 Flow Rate FiO2 12/03/24 15:45 104 11 101/62 (75) 100 12/03/24 14:00 Nasal Cannula* 2 28 12/03/24 12:00 98.0 98.0 Physical Exam nad s1 s2 irregular diffuse rhonchi abd tense distended trivial edema Labs/Diagnostic Data Labs Test 12/03/24 12:00 12/03/24 05:16 12/03/24 04:25 12/03/24 03:04 Range/Units POC Glucose 172 H 70-106 mg/dl Potassium Level 5.6 *H 3.5-5.1 mmol/L Phosphorus Level 4.3 2.4-5.1 mg/dL Influenza Type A Antigen Negative Negative Influenza Type B Antigen Negative Negative SARS-CoV-2 Antigen (Rapid) Negative NEGATIVE Lactic Acid Level 1.5 0.4-2.0 mmol/L Troponin I High Sensitivity 53 *H </=34 ng/L Test 12/02/24 23:59 Range/Units White Blood Count 6.5 4.4-10.8 10^3/uL Red Blood Count 3.02 L 4.0-5.20 10^6/uL Hemoglobin 9.8 L 12.2-16.2 g/dL Hematocrit 30.7 L 36.0-46.0 % Mean Corpuscular Volume 101.6 H 80.0-100.0 fL Mean Corpuscular Hemoglobin 32.6 H 28.0-32.0 pg Mean Corpuscular Hemoglobin Concent 32.0 32.0-36.0 g/dL Red Cell Distribution Width 14.7 H 11.8-14.3 % Platelet Count 121 L 140-450 10^3/uL Mean Platelet Volume 10.4 6.9-10.8 fL Neutrophils (%) (Auto) 37.0-80.0 % Lymphocytes (%) (Auto) 10.0-50.0 % Monocytes (%) (Auto) 0.0-12.0 % Eosinophils (%) (Auto) 0.0-7.0 % Basophils (%) (Auto) 0.0-2.0 % Neutrophils # (Auto) 1.6-8.6 10 ^3/uL Lymphocytes # (Auto) 0.4-5.4 10 ^3/uL Monocytes # (Auto) 0-1.3 10 ^3/uL Differential Total Cells Counted 100.0 100 Neutrophils % (Manual) 62 37.0-80.0 Band Neutrophils % (Manual) 0 Lymphocytes % (Manual) 10 10.0-50.0 Monocytes % (Manual) 8 0-12 Eosinophils % (Manual) 20 H 0-7 Basophils % (Manual) 0 0.0-2.0 Metamyelocytes % (manual) 0 Myelocytes % (Manual) 0 Promyelocytes % (Manual) 0 Blast Cells % (Manual) 0 Reactive Lymphocytes 0 Platelet Estimate Decreased Anisocytosis (manual) Slight Macrocytosis Slight Prothrombin Time 14.0 H 9.3-11.8 sec Prothrombin Time INR 1.36 H 0.9-1.15 Sodium Level 138 136-145 mmol/L Chloride Level 106 98-107 mmol/L Carbon Dioxide Level 22 20-31 mmol/L Anion Gap 10 5-15 Blood Urea Nitrogen 40 H 9-23 mg/dL Creatinine 3.78 H 0.550-1.02 mg/dL Glomerular Filtration Rate Calc 13 >90 mL/min BUN/Creatinine Ratio 10.6 10.0-20.0 Serum Glucose 274 H 74-106 mg/dL Calcium Level 6.0 *L 8.7-10.4 mg/dL Magnesium Level 1.7 1.6-2.6 mg/dL Total Bilirubin 0.4 0.2-1.0 mg/dL Aspartate Amino Transferase (AST) 22 13-40 U/L Alanine Aminotransferase (ALT) 14 7-40 U/L Alkaline Phosphatase 366 H 46-116 U/L Ammonia 31 11-32 umol/L Total Protein 4.3 L 5.7-8.2 g/dL Albumin 2.4 L 3.2-4.8 g/dL Lipase 18 12-53 U/L Thyroid Stimulating Hormone (TSH) 10.57 H 0.55-4.78 uIU/mL Plasma/Serum Blood Alcohol < 3.0 <10 mg/dL Assessment chronic pericardial effusion esrd on hd distended abdomen/ ascites liver failure hx of afib hx of venous disease Plan/Recommendation recommend paracentesis, gets them weekly hold doac for now 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
[2024-12-03] MEDS: ATORVASTATIN 20 MG TAB PO SCH (22:00)
[2024-12-04] VITALS (70 sets, daily range): BP systolic 79–134; BP diastolic 49–82; PULSE 91–161; RESP 9–34; TEMP 94.5–98.6; O2SAT 89–100
[2024-12-04 06:46] LABS: Basophils # (auto) 0.2 10 ^3/uL (0-0.2); Basophils % (auto) 2.4 % (0.0-2.0); Eosinophils # (auto) 1.4 10 ^3/uL (0-0.8); Eosinophils % (auto) 14.7 % (0.0-7.0); Hematocrit 34.9 % (36.0-46.0); Hemoglobin 11.2 g/dL (12.2-16.2); Lymphocytes # (auto) 0.6 10 ^3/uL (0.4-5.4); Lymphocytes % (auto) 6.8 % (10.0-50.0); Mean Corpuscular Volume 99.8 fL (80.0-100.0); Monocytes # (auto) 0.8 10 ^3/uL (0-1.3); Monocytes % (auto) 8.9 % (0.0-12.0); Neutrophils # (auto) 6.4 10 ^3/uL (1.6-8.6); Neutrophils % (auto) 67.2 % (37.0-80.0); Nucleated Red Blood Cells % 0.1 %; Platelet Count (auto) 170 10^3/uL (140-450); Red Blood Cells 3.49 10^6/uL (4.0-5.20); Red Cell Distribution Width 13.9 % (11.8-14.3); White Blood Cell 9.5 10^3/uL (4.4-10.8)
[2024-12-04 06:47] LABS: Alanine Aminotransferase 14 U/L (7-40); Albumin 3.5 g/dL (3.2-4.8); Anion Gap 10 (5-15); Aspartate Aminotransferase 20 U/L (13-40); BUN/Creatinine Ratio 9.7 (10.0-20.0); Bilirubin, Total 0.5 mg/dL (0.2-1.0); Carbon Dioxide 25 mmol/L (20-31)
[2024-12-04 06:53] LABS: Sodium 133 mmol/L (136-145)
[2024-12-04 06:57] LABS: Alkaline Phosphatase 418 U/L (46-116); Blood Urea Nitrogen 46 mg/dL (9-23); Calcium 7.7 mg/dL (8.7-10.4); Chloride 98 mmol/L (98-107); Glucose 126 mg/dL (74-106)
[2024-12-04] MEDS: SODIUM ZIRCONIUM CYCL 10 GM PAK PO ONE (08:00)
[2024-12-04 08:07] LABS: Free Thyroxine Index 2.9 (1.2-4.9); Thyroxine (T4) 8.8 ug/dL (4.5-12.0)
[2024-12-04] MEDS: DEXTROSE (50%) 50ML SYRG IV ONE (08:11)
[2024-12-04] MEDS: SODIUM BICARB 8.4% 50Meq/50ml SYR Vial IV ONE (08:12)
[2024-12-04] MEDS: ALBUTEROL SULF 2.5 MG/0.5ML(0.5%) NEB SOLN NEB ONE (08:18)
[2024-12-04] MEDS: InsuLIN REG 1unit/0.01ml Soln (100units/ml) IV ONE (08:21)
[2024-12-04] MEDS: SODIUM CHL 0.9% 1000 ML BAG XX ONE (08:30)
[2024-12-04] MEDS: CALCIUM GLUC 1,000mg/50ml-NS 50 ML IV ONE (08:36)
--- NOTE | 2024-12-04 08:45 | DVHPN2 ---
Subjective Patient denies any symptoms. Reviewed: Care Plan, H&P, Labs, Medications, Previous Orders Changes from previous H/P or p: No Changes General: Per HPI Objective Vitals Vital Signs Date Time Temp Pulse Resp B/P (MAP) Pulse Ox O2 Delivery O2 Flow Rate FiO2 12/04/24 08:18 20 99 Nasal Cannula* 2 28 12/04/24 06:45 97 105/82 (90) 12/04/24 06:00 98.0 98.0 Intake/Output Intake and Output 12/04/24 07:00 Intake Total 1208.126 ml Output Total 0 ml Balance 1208.126 ml Intake Oral 550 ml IV Total 658.126 ml Output Urine Total 0 ml # Bowel Movements 1 General Appearance: Alert, Cooperative, No acute distress HEENT: Atraumatic, PERRLA Lungs: Clear to auscultation, Normal air movement Cardiovascular: Normal S1, Normal S2 Abdomen: Normal bowel sounds, Other (Ascites) Musculoskeletal: Normal sensory function, Normal motor function Neuro: Normal speech Skin: Dry, Intact Psych/Mental Status: Mental status NL, Mood NL Medications Current Medications Medications Dose Ordered Sig/Honey Route Start Time Stop Time Status Last Admin Dose Admin Norepinephrine Bitartrate 250 ml @ 3.75 mls/hr Q24H IV 12/03/24 00:45 12/03/24 23:31 1.875 MLS/HR Furosemide 60 mg DAILY PO 12/03/24 10:00 Midodrine 10 mg TID@0600,1200,1800 PO 12/03/24 06:00 12/03/24 18:02 10 MG Atorvastatin Calcium 20 mg HS PO 12/03/24 22:00 Apixaban 2.5 mg DAILY PO 12/03/24 10:00 Sevelamer HCl 800 mg TIDWM PO 12/03/24 08:00 12/03/24 18:02 800 MG Diagnostic Test (Pha) 1 strip Q6HR 12/03/24 06:00 12/04/24 05:43 1 STRIP Insulin Human Regular Q6HR SC 12/03/24 06:00 12/04/24 00:02 3 UNITS Dextrose 50 ml UD PRN IV 12/03/24 04:15 12/03/24 07:01 50 ML Ondansetron HCl 4 mg Q4HP PRN IV 12/03/24 04:15 Acetaminophen 650 mg Q6HP PRN PO 12/03/24 04:15 Nitroglycerin 0.4 mg Q5MINP PRN SL 12/03/24 04:15 Morphine Sulfate 2 mg Q30M PRN IV 12/03/24 04:15 Laboratory Results Laboratory Tests 12/04/24 05:51 Chemistry Test 12/04/24 05:51 Albumin 3.5 g/dL (3.2-4.8) Calcium Level 7.7 mg/dL (8.7-10.4) L Total Protein 6.0 g/dL (5.7-8.2) LFT Test 12/04/24 05:51 Alanine Aminotransferase (ALT) 14 U/L (7-40) Alkaline Phosphatase 418 U/L (46-116) H Aspartate Amino Transferase (AST) 20 U/L (13-40) Total Bilirubin 0.5 mg/dL (0.2-1.0) Microbiology Microbiology Date/Time Source Procedure Growth Status 12/03/24 00:34 Blood Blood Culture - Preliminary NO GROWTH AFTER 24 HOURS OF INCUBATION. Resulted Labs and/or images reviewed: Labs reviewed by me, Image(s) reviewed by me Assessment/Plan Assessment/Plan Impression: -hypotension -cirrhosis -pericardial effusion -ESRD with hemodialysis -hypoglycemia -syncope -hyperkalemia -hypercalcemia -acute hypoxic respiratory failure -ascites Plan: Events: Patient continues to be in shock. Potassium 7.0 today. Cocktail given the patient. We will discuss plan of care with structural ironworker once available. -nephrology consultation : Plans for hemodialysis today. -cardiology consultation: Discussed the case with Cardiology -potassium lowering agents -radiology consultation for paracentesis -continue O2 supplementation to keep saturation greater than 92% -continue norepinephrine drip to keep map greater than 65 mmHg -consistent carbohydrate diet, check Accu-Cheks q.6 hours -repeat labs in a.m. Critical care time spent with patient discussing and formulating plan of care: 40 minutes. This does not include time spent performing procedures. This medical document was created using an electronic medical record system with [employer] system. Although this document has been carefully reviewed, there may still be some phonetic and typographical errors. These areas are purely typographical due to imperfections of the software programs, and do not reflect any compromise in the patient's medical care. Plan discussed with: Patient, Other (RN) My Orders Orders - SALBINO,ZHAO METALS SALES REPRESENTATIVE Procedure Category Date Status Time * Cardiology Consult CONS 12/03/24 Transmitted 15:12 Abdomen Limited US 12/03/24 Resulted Paracentesis US 12/04/24 Logged 08:00 Regular Diet DIET 12/04/24 Transmitted Breakfast Date of Service: Dec 04, 2024 Billing Provider: PAVEL GUAMAN NP Common Visit Codes: [id number] CARE 30-74 MIN PAVEL GUAMAN NP Dec 04, 2024 08:45
--- NOTE | 2024-12-04 11:54 | DVHPN2 ---
Progress Note Date Seen: Dec 04, 2024 Medical Necessity Reason Pt with a Central, PICC or Fol: No Subjective Patient reports: No new complaints Other Systems: Patient seen and examined by myself today in follow-up Patient examined hemodialysis, blood pressure stable Objective vital signs Vital Sign Date Time Temp Pulse Resp B/P (MAP) Pulse Ox O2 Delivery O2 Flow Rate FiO2 12/04/24 11:00 133/73 12/04/24 10:45 125 12 100 12/04/24 10:00 Nasal Cannula* 2 28 12/04/24 08:00 98.3 98.3 Total Intake and Output 12/03/24 12/03/24 12/04/24 15:00 23:00 07:00 Intake Total 592.50 ml 286.563 ml 336.563 ml Output Total 0 ml Balance 592.50 ml 286.563 ml 336.563 ml medications Current Medications Medications Dose Ordered Sig/Honey Route Start Time Stop Time Status Last Admin Dose Admin Norepinephrine Bitartrate 250 ml @ 3.75 mls/hr Q24H IV 12/03/24 00:45 12/03/24 23:31 1.875 MLS/HR Furosemide 60 mg DAILY PO 12/03/24 10:00 Midodrine 10 mg TID@0600,1200,1800 PO 12/03/24 06:00 12/03/24 18:02 10 MG Atorvastatin Calcium 20 mg HS PO 12/03/24 22:00 Apixaban 2.5 mg DAILY PO 12/03/24 10:00 Sevelamer HCl 800 mg TIDWM PO 12/03/24 08:00 12/03/24 18:02 800 MG Diagnostic Test (Pha) 1 strip Q6HR 12/03/24 06:00 12/04/24 05:43 1 STRIP Insulin Human Regular Q6HR SC 12/03/24 06:00 12/04/24 00:02 3 UNITS Dextrose 50 ml UD PRN IV 12/03/24 04:15 12/03/24 07:01 50 ML Ondansetron HCl 4 mg Q4HP PRN IV 12/03/24 04:15 Acetaminophen 650 mg Q6HP PRN PO 12/03/24 04:15 Nitroglycerin 0.4 mg Q5MINP PRN SL 12/03/24 04:15 Morphine Sulfate 2 mg Q30M PRN IV 12/03/24 04:15 Examination: LUNGS:Normal, CVS:Normal, MSK:Normal laboratory and microbiology Laboratory Tests 12/04/24 05:51 Test 12/04/24 05:51 Range/Units Serum Glucose 126 H 74-106 mg/dL Microbiology Date/Time Source Procedure Growth Status 12/03/24 00:34 Blood Blood Culture - Preliminary NO GROWTH AFTER 24 HOURS OF INCUBATION. Resulted Problem List/Assessment/Plan Problem List/Assessment/Plan End-stage renal disease on hemodialysis Hyperkalemia due to dietary indiscretion Diabetes mellitus type 2 Chronic diastolic heart failure AFib with RVR Syncope Hypotension Liver cirrhosis Anemia of chronic kidney disease Recommendation Continue with UF 2 L as tolerated Emergent medical treatment for hyperkalemia Lokelma 10 g p.o. Renal diet with low potassium Resume home medication Midodrine 10 mg p.o. t.i.d. Cardiology consult We will continue to follow Plan discussed with: Patient My Orders My Orders Orders - MARÍA AMADOR MD Procedure Category Date Status Time Hepatitis B Surface LAB 12/04/24 In Process Antigen 08:39 MARÍA AMADOR MD Dec 04, 2024 11:54
--- NOTE | 2024-12-04 14:52 | DVHPN2 ---
Progress Note Date Seen: Dec 04, 2024 Medical Necessity Reason Pt with a Central, PICC or Fol: No Subjective Patient reports: Feels better Other Systems: sp para off pressors Objective vital signs Vital Sign Date Time Temp Pulse Resp B/P (MAP) Pulse Ox O2 Delivery O2 Flow Rate FiO2 12/04/24 14:00 19 100 Nasal Cannula* 2 28 12/04/24 14:00 125 12/04/24 14:00 108/71 (83) 12/04/24 12:00 98.6 98.6 Total Intake and Output 12/03/24 12/03/24 12/04/24 15:00 23:00 07:00 Intake Total 592.50 ml 286.563 ml 336.563 ml Output Total 0 ml Balance 592.50 ml 286.563 ml 336.563 ml medications Current Medications Medications Dose Ordered Sig/Honey Route Start Time Stop Time Status Last Admin Dose Admin Norepinephrine Bitartrate 250 ml @ 3.75 mls/hr Q24H IV 12/03/24 00:45 12/03/24 23:31 1.875 MLS/HR Furosemide 60 mg DAILY PO 12/03/24 10:00 Midodrine 10 mg TID@0600,1200,1800 PO 12/03/24 06:00 12/03/24 18:02 10 MG Atorvastatin Calcium 20 mg HS PO 12/03/24 22:00 Apixaban 2.5 mg DAILY PO 12/03/24 10:00 Sevelamer HCl 800 mg TIDWM PO 12/03/24 08:00 12/03/24 18:02 800 MG Diagnostic Test (Pha) 1 strip Q6HR 12/03/24 06:00 12/04/24 05:43 1 STRIP Insulin Human Regular Q6HR SC 12/03/24 06:00 12/04/24 00:02 3 UNITS Dextrose 50 ml UD PRN IV 12/03/24 04:15 12/03/24 07:01 50 ML Ondansetron HCl 4 mg Q4HP PRN IV 12/03/24 04:15 Acetaminophen 650 mg Q6HP PRN PO 12/03/24 04:15 Nitroglycerin 0.4 mg Q5MINP PRN SL 12/03/24 04:15 Morphine Sulfate 2 mg Q30M PRN IV 12/03/24 04:15 Examination: GENERAL:Abnormal, HEENT:Abnormal, LUNGS:Abnormal, CVS:Abnormal, ABDOMEN:Abnormal laboratory and microbiology Laboratory Tests 12/04/24 05:51 Test 12/04/24 05:51 Range/Units Serum Glucose 126 H 74-106 mg/dL Microbiology Date/Time Source Procedure Growth Status 12/03/24 00:34 Blood Blood Culture - Preliminary NO GROWTH AFTER 24 HOURS OF INCUBATION. Resulted Problem List/Assessment/Plan Problem List/Assessment/Plan chronic pericardial effusion esrd on hd venous disease hypotension ascites s/p paracentesis dc home 12/05 if stable has outpt appts on 12/06 she wants to make if possible pt sees me in clinic, will fu Plan discussed with: Patient Date of Service: Dec 04, 2024 Billing Provider: SOLITARIO GARCIA MD Common Visit Codes: NOT BILLABLE SOLITARIO GARCIA MD Dec 04, 2024 14:52
[2024-12-04] MEDS: ALBUMIN 25% 100 ML IV ONE (15:25)
[2024-12-04] MEDS: ATROPINE SULF 1 MG/10ml SYR ONE (18:00)
[2024-12-04] MEDS: EPINEPHrine HCL 250 ML IV ONE (18:00)
[2024-12-04 18:41] LABS: Body Fluid Polymorphonuclear 9 % (0-25); Body Fluid Red Blood Cells 1721 CUMM (0-2000); Body Fluid White Blood Cells 100 CUMM (0-200)
[2024-12-04] MEDS: EPOETIN ALFA-EPBX 10,000 UNIT/1ML VIAL SC ONE (21:00)
[2024-12-05] VITALS (12 sets, daily range): BP systolic 91–150; BP diastolic 40–92; PULSE 110–125; RESP 17–18; TEMP 97.9–98.3; O2SAT 91–100
--- NOTE | 2024-12-05 08:38 | DVH ---
US PARACENTESIS, HISTORY: ASCITES PROCEDURE: Informed consent was obtained. The patient was placed in supine position. A limited locali zation ultrasound of the abdomen was obtained, and the skin site over the largest pocket of fluid was marked and entry site was prepped with chlorhexidine which was allowed to dry and draped in the usua l sterile fashion. Time out was performed. Following administration of 1% lidocaine local anesthetic, a 5 [place] centesis needle catheter was percutaneously inserted into the peritoneal collection until fluid was aspirated. The catheter was advanced into the fluid collection and the needle removed. Abo ut 7200 cc of fluid was aspirated and specimen sent for appropriate cultures/cytology/cultures and cy tology. The catheter was then removed and a sterile dressing applied. No immediate complication was identified. FINDINGS: Limited ultrasound imaging demonstrates moderate ascites. Aspirated fluid was clear and ser ous. IMPRESSION: US-guided paracentesis with 7.2L removed.
--- NOTE | 2024-12-05 11:41 | DVHPN2 ---
Progress Note Date Seen: Dec 05, 2024 Medical Necessity Reason Pt with a Central, PICC or Fol: No Subjective Patient reports: No new complaints Other Systems: Patient seen and examined by myself today in follow-up Objective vital signs Vital Sign Date Time Temp Pulse Resp B/P (MAP) Pulse Ox O2 Delivery O2 Flow Rate FiO2 12/05/24 09:32 97.9 110 18 110/68 (82) 100 97.9 12/05/24 08:00 Nasal Cannula* 3 32 Total Intake and Output 12/04/24 12/04/24 12/05/24 15:00 23:00 07:00 Intake Total 122.5 ml 175 ml Output Total 7200 ml Balance 122.5 ml -7025 ml medications Current Medications Medications Dose Ordered Sig/Honey Route Start Time Stop Time Status Last Admin Dose Admin Norepinephrine Bitartrate 250 ml @ 3.75 mls/hr Q24H IV 12/03/24 00:45 12/03/24 23:31 1.875 MLS/HR Furosemide 60 mg DAILY PO 12/03/24 10:00 12/05/24 09:25 60 MG Midodrine 10 mg TID@0600,1200,1800 PO 12/03/24 06:00 12/05/24 05:20 10 MG Atorvastatin Calcium 20 mg HS PO 12/03/24 22:00 12/04/24 20:54 20 MG Apixaban 2.5 mg DAILY PO 12/03/24 10:00 12/05/24 09:24 2.5 MG Sevelamer HCl 800 mg TIDWM PO 12/03/24 08:00 12/05/24 09:24 800 MG Diagnostic Test (Pha) 1 strip Q6HR 12/03/24 06:00 12/05/24 05:24 1 STRIP Insulin Human Regular Q6HR SC 12/03/24 06:00 12/05/24 00:31 4 UNITS Dextrose 50 ml UD PRN IV 12/03/24 04:15 12/03/24 07:01 50 ML Ondansetron HCl 4 mg Q4HP PRN IV 12/03/24 04:15 Acetaminophen 650 mg Q6HP PRN PO 12/03/24 04:15 Nitroglycerin 0.4 mg Q5MINP PRN SL 12/03/24 04:15 Morphine Sulfate 2 mg Q30M PRN IV 12/03/24 04:15 Examination: LUNGS:Normal, CVS:Normal, MSK:Normal laboratory and microbiology Laboratory Tests 12/05/24 08:52 12/04/24 05:51 Test 12/04/24 05:51 Range/Units Serum Glucose 126 H 74-106 mg/dL Microbiology Date/Time Source Procedure Growth Status 12/04/24 14:30 Ascities Fluid Gram Stain - Final Resulted 12/04/24 14:30 Ascities Fluid Body Fluid Culture - Preliminary Resulted 12/03/24 00:34 Blood Blood Culture - Preliminary NO GROWTH AFTER 48 HOURS OF INCUBATION. Resulted Problem List/Assessment/Plan Problem List/Assessment/Plan End-stage renal disease on hemodialysis Hyperkalemia due to dietary indiscretion Diabetes mellitus type 2 Chronic diastolic heart failure AFib with RVR Syncope Hypotension Liver cirrhosis Anemia of chronic kidney disease Recommendation Hemodialysis tomorrow Lokelma 10 g p.o. q.day for three days Renal diet with low potassium Resume home medication Midodrine 10 mg p.o. t.i.d. Cardiology consult We will continue to follow Plan discussed with: Patient My Orders My Orders Orders - MARÍA AMADOR MD Procedure Category Date Status Time Renal Specific DIET 12/04/24 Transmitted Diet(Renal) Lunch MARÍA AMADOR MD Dec 05, 2024 11:41
[2024-12-05] MEDS: SODIUM ZIRCONIUM CYCL 10 GM PAK PO SCH (12:55)
[2024-12-05 14:07] LABS: Protein, Body Fluid 3.2 g/dL (.)
--- NOTE | 2024-12-05 14:07 | DVHPN2 ---
Subjective Patient denies any symptoms. Reviewed: Care Plan, H&P, Labs, Medications, Previous Orders Changes from previous H/P or p: No Changes General: Per HPI Objective Vitals Vital Signs Date Time Temp Pulse Resp B/P (MAP) Pulse Ox O2 Delivery O2 Flow Rate FiO2 12/05/24 09:32 97.9 110 18 110/68 (82) 100 97.9 12/05/24 08:00 Nasal Cannula* 3 32 Intake/Output Intake and Output 12/05/24 07:00 Intake Total 297.5 ml Output Total 7200 ml Balance -6902.5 ml Intake Oral 175 ml IV Total 122.5 ml Other 7200 ml General Appearance: Alert, Cooperative, No acute distress HEENT: Atraumatic, PERRLA Lungs: Clear to auscultation, Normal air movement Cardiovascular: Normal S1, Normal S2 Abdomen: Normal bowel sounds, Other (Ascites) Musculoskeletal: Normal sensory function, Normal motor function Extremities: No clubbing, No cyanosis, No edema, No tenderness/swelling Neuro: Normal speech Skin: Dry, Intact Psych/Mental Status: Mental status NL, Mood NL Medications Current Medications Medications Dose Ordered Sig/Honey Route Start Time Stop Time Status Last Admin Dose Admin Norepinephrine Bitartrate 250 ml @ 3.75 mls/hr Q24H IV 12/03/24 00:45 Hold 12/03/24 23:31 1.875 MLS/HR Furosemide 60 mg DAILY PO 12/03/24 10:00 12/05/24 09:25 60 MG Midodrine 10 mg TID@0600,1200,1800 PO 12/03/24 06:00 12/05/24 12:55 10 MG Atorvastatin Calcium 20 mg HS PO 12/03/24 22:00 12/04/24 20:54 20 MG Apixaban 2.5 mg DAILY PO 12/03/24 10:00 12/05/24 09:24 2.5 MG Sevelamer HCl 800 mg TIDWM PO 12/03/24 08:00 12/05/24 12:55 800 MG Diagnostic Test (Pha) 1 strip Q6HR 12/03/24 06:00 12/05/24 11:45 1 STRIP Insulin Human Regular Q6HR SC 12/03/24 06:00 12/05/24 12:44 6 UNITS Dextrose 50 ml UD PRN IV 12/03/24 04:15 12/03/24 07:01 50 ML Ondansetron HCl 4 mg Q4HP PRN IV 12/03/24 04:15 Acetaminophen 650 mg Q6HP PRN PO 12/03/24 04:15 Nitroglycerin 0.4 mg Q5MINP PRN SL 12/03/24 04:15 Morphine Sulfate 2 mg Q30M PRN IV 12/03/24 04:15 Zirconium Oxide 10 gm DAILY PO 12/05/24 11:45 12/08/24 11:44 12/05/24 12:55 10 GM Amiodarone HCl 200 mg DAILY PO 12/05/24 13:15 Laboratory Results Laboratory Tests 12/04/24 05:51 12/05/24 08:52 Microbiology Microbiology Date/Time Source Procedure Growth Status 12/04/24 14:30 Ascities Fluid Gram Stain - Final Resulted 12/04/24 14:30 Ascities Fluid Body Fluid Culture - Preliminary Resulted 12/03/24 00:34 Blood Blood Culture - Preliminary NO GROWTH AFTER 48 HOURS OF INCUBATION. Resulted Labs and/or images reviewed: Labs reviewed by me, Image(s) reviewed by me Assessment/Plan Assessment/Plan Impression: -hypotension -cirrhosis -pericardial effusion -ESRD with hemodialysis -hypoglycemia -syncope -hyperkalemia -hypercalcemia -acute hypoxic respiratory failure -ascites Plan: Events: Patient remains hyperkalemic x 5.6. Paracentesis with 7 L removed. Plans for HD tomorrow. Discussed hyperkalemia with Nephrology with Lokelma 10 mg x 3 days. Also discussed plan of care with patient who is agreeable to be discharged tomorrow after hemodialysis. -nephrology consultation : Recommendations reviewed -cardiology consultation: Discussed the case with Cardiology -potassium lowering agents -radiology consultation for paracentesis -continue O2 supplementation to keep saturation greater than 92% -continue norepinephrine drip to keep map greater than 65 mmHg -consistent carbohydrate diet, check Accu-Cheks q.6 hours -repeat labs in a.m. Critical care time spent with patient discussing and formulating plan of care: 40 minutes. This does not include time spent performing procedures. This medical document was created using an electronic medical record system with [employer] system. Although this document has been carefully reviewed, there may still be some phonetic and typographical errors. These areas are purely typographical due to imperfections of the software programs, and do not reflect any compromise in the patient's medical care. Plan discussed with: Patient, Other (RN) My Orders Orders - PAVEL GUAMAN NP Procedure Category Date Status Time Transfer Orders XFER 12/04/24 Transmitted 15:46 Amiodarone Tablet PHA 12/05/24 In Process (Cordarone Tablet) 13:15 Basic Metabolic Panel LAB 12/06/24 Verified 04:00 Date of Service: Dec 05, 2024 Billing Provider: PAVEL GUAMAN NP Common Visit Codes: [id number] CARE 30-74 MIN PAVEL GUAMAN NP Dec 05, 2024 14:07
[2024-12-05] MEDS: AMIODARONE HCL 200 MG TAB PO SCH (15:36)
[2024-12-05] MEDS: ACETAMINOPHEN 325 MG TAB PO PRN (23:58)
[2024-12-06] VITALS (10 sets, daily range): BP systolic 95–122; BP diastolic 56–97; PULSE 84–127; RESP 16–20; TEMP 36.5; O2SAT 91–100
[2024-12-06] MEDS ORDERED: SODIUM CHL 0.9% 1000 ML BAG XX ONE (07:00)
[2024-12-06 10:15] LABS: Anion Gap 6 (5-15)
[2024-12-06 10:41] LABS: Blood Urea Nitrogen 36 mg/dL (9-23); Calcium 7.6 mg/dL (8.7-10.4); Carbon Dioxide 32 mmol/L (20-31); Chloride 96 mmol/L (98-107); Glucose 151 mg/dL (74-106); Potassium 5.3 mmol/L (3.5-5.1); Sodium 134 mmol/L (136-145)
--- NOTE | 2024-12-06 12:25 | DVHPN2 ---
Progress Note Date Seen: Dec 06, 2024 Medical Necessity Reason Pt with a Central, PICC or Fol: No Subjective Patient reports: No new complaints Other Systems: Patient seen and examined by myself today in f/u Patient examine don HD, BP stable Objective vital signs Vital Sign Date Time Temp Pulse Resp B/P (MAP) Pulse Ox O2 Delivery O2 Flow Rate FiO2 12/06/24 10:21 122/81 12/06/24 08:59 98.6 120 18 96 98.6 12/05/24 20:00 Nasal Cannula* 3 32 Total Intake and Output 12/05/24 12/05/24 12/06/24 15:00 23:00 07:00 Intake Total 500 ml 240 ml Balance 500 ml 240 ml medications Current Medications Medications Dose Ordered Sig/Honey Route Start Time Stop Time Status Last Admin Dose Admin Furosemide 60 mg DAILY PO 12/03/24 10:00 12/06/24 10:21 60 MG Midodrine 10 mg TID@0600,1200,1800 PO 12/03/24 06:00 12/06/24 05:18 10 MG Atorvastatin Calcium 20 mg HS PO 12/03/24 22:00 12/05/24 21:51 20 MG Apixaban 2.5 mg DAILY PO 12/03/24 10:00 12/06/24 10:21 2.5 MG Sevelamer HCl 800 mg TIDWM PO 12/03/24 08:00 12/06/24 10:21 800 MG Diagnostic Test (Pha) 1 strip Q6HR 12/03/24 06:00 12/06/24 12:19 1 STRIP Insulin Human Regular Q6HR SC 12/03/24 06:00 12/05/24 23:59 4 UNITS Dextrose 50 ml UD PRN IV 12/03/24 04:15 12/03/24 07:01 50 ML Ondansetron HCl 4 mg Q4HP PRN IV 12/03/24 04:15 Acetaminophen 650 mg Q6HP PRN PO 12/03/24 04:15 12/05/24 23:58 650 MG Nitroglycerin 0.4 mg Q5MINP PRN SL 12/03/24 04:15 Morphine Sulfate 2 mg Q30M PRN IV 12/03/24 04:15 Zirconium Oxide 10 gm DAILY PO 12/05/24 11:45 12/08/24 11:44 12/06/24 10:21 10 GM Amiodarone HCl 200 mg DAILY PO 12/05/24 13:15 12/06/24 10:19 200 MG Examination: LUNGS:Normal, CVS:Normal, MSK:Normal laboratory and microbiology Laboratory Tests 12/06/24 09:11 12/04/24 05:51 Test 12/06/24 09:11 Range/Units Serum Glucose 151 H 74-106 mg/dL Microbiology Date/Time Source Procedure Growth Status 12/04/24 14:30 Ascities Fluid Gram Stain - Final Resulted 12/04/24 14:30 Ascities Fluid Body Fluid Culture - Preliminary Resulted 12/03/24 00:34 Blood Blood Culture - Preliminary NO GROWTH AFTER 72 HOURS OF INCUBATION. Resulted Problem List/Assessment/Plan Problem List/Assessment/Plan End-stage renal disease on hemodialysis Hyperkalemia due to dietary indiscretion Diabetes mellitus type 2 Chronic diastolic heart failure AFib with RVR Syncope Hypotension Liver cirrhosis Anemia of chronic kidney disease Recommendation Continue with UF 1-2 L as tolerated Lokelma 10 g p.o. q.day for three days Renal diet with low potassium Resume home medication Midodrine 10 mg p.o. t.i.d. Cardiology consult We will continue to follow Plan discussed with: Patient MARÍA AMADOR MD Dec 06, 2024 12:25
--- NOTE | 2024-12-06 14:02 | DVHDS2 ---
Discharge Summary Date of Admission Dec 03, 2024 at 04:10 Date of Discharge: Dec 06, 2024 Admitting Diagnosis Syncope with collapse Labs/Diagnostic Data: Laboratory Results Test 12/06/24 09:11 12/06/24 05:11 12/04/24 14:30 12/04/24 05:51 Sodium Level 134 mmol/L (136-145) Potassium Level 5.3 mmol/L (3.5-5.1) Chloride Level 96 mmol/L (98-107) Carbon Dioxide Level 32 mmol/L (20-31) Anion Gap 6 (5-15) Blood Urea Nitrogen 36 mg/dL (9-23) Creatinine 4.48 mg/dL (0.550-1.02) Glomerular Filtration Rate Calc 11 mL/min (>90) BUN/Creatinine Ratio 8.0 (10.0-20.0) Serum Glucose 151 mg/dL (74-106) Calcium Level 7.6 mg/dL (8.7-10.4) POC Glucose 116 mg/dl (70-106) Body Fluid Source Peritoneal fluid Body Fluid pH 8.0 Body Fluid WBC (Manual) 100 CUMM (0-200) Body Fluid RBC (Manual) 1721 CUMM (0-2000) Body Fluid Mononuclear Cells 91 % Body Fluid Polymorphonuclear Cells 9 % (0-25) Body Fluid Glucose 143 mg/dL (.) Body Fluid Total Protein 3.2 g/dL (.) Body Fluid Lactate Dehydrogenase 97 IU/L (.) White Blood Count 9.5 10^3/uL (4.4-10.8) Red Blood Count 3.49 10^6/uL (4.0-5.20) Hemoglobin 11.2 g/dL (12.2-16.2) Hematocrit 34.9 % (36.0-46.0) Mean Corpuscular Volume 99.8 fL (80.0-100.0) Mean Corpuscular Hemoglobin 32.0 pg (28.0-32.0) Mean Corpuscular Hemoglobin Concent 32.0 g/dL (32.0-36.0) Red Cell Distribution Width 13.9 % (11.8-14.3) Platelet Count 170 10^3/uL (140-450) Mean Platelet Volume 10.7 fL (6.9-10.8) Neutrophils (%) (Auto) 67.2 % (37.0-80.0) Lymphocytes (%) (Auto) 6.8 % (10.0-50.0) Monocytes (%) (Auto) 8.9 % (0.0-12.0) Eosinophils (%) (Auto) 14.7 % (0.0-7.0) Basophils (%) (Auto) 2.4 % (0.0-2.0) Neutrophils # (Auto) 6.4 10 ^3/uL (1.6-8.6) Lymphocytes # (Auto) 0.6 10 ^3/uL (0.4-5.4) Monocytes # (Auto) 0.8 10 ^3/uL (0-1.3) Eosinophils # (Auto) 1.4 10 ^3/uL (0-0.8) Basophils # (Auto) 0.2 10 ^3/uL (0-0.2) Nucleated Red Blood Cells 0.1 % Total Bilirubin 0.5 mg/dL (0.2-1.0) Aspartate Amino Transferase (AST) 20 U/L (13-40) Alanine Aminotransferase (ALT) 14 U/L (7-40) Alkaline Phosphatase 418 U/L (46-116) Total Protein 6.0 g/dL (5.7-8.2) Albumin 3.5 g/dL (3.2-4.8) Hepatitis B Surface Antigen Negative (Negative) Test 12/03/24 17:32 12/03/24 05:16 12/03/24 04:25 12/03/24 03:04 Uric Acid 5.1 mg/dL (3.1-7.8) Phosphorus Level 4.3 mg/dL (2.4-5.1) Free Thyroxine Index 2.9 (1.2-4.9) Thyroxine (T4) 8.8 ug/dL (4.5-12.0) Triiodothyronine (T3) Uptake 33 % (24-39) Influenza Type A Antigen Negative (Negative) Influenza Type B Antigen Negative (Negative) SARS-CoV-2 Antigen (Rapid) Negative (NEGATIVE) Lactic Acid Level 1.5 mmol/L (0.4-2.0) Troponin I High Sensitivity 53 ng/L (</=34) Test 12/02/24 23:59 Differential Total Cells Counted 100.0 (100) Neutrophils % (Manual) 62 (37.0-80.0) Band Neutrophils % (Manual) 0 Lymphocytes % (Manual) 10 (10.0-50.0) Monocytes % (Manual) 8 (0-12) Eosinophils % (Manual) 20 (0-7) Basophils % (Manual) 0 (0.0-2.0) Metamyelocytes % (manual) 0 Myelocytes % (Manual) 0 Promyelocytes % (Manual) 0 Blast Cells % (Manual) 0 Reactive Lymphocytes 0 Platelet Estimate Decreased Anisocytosis (manual) Slight Macrocytosis Slight Prothrombin Time 14.0 sec (9.3-11.8) Prothrombin Time INR 1.36 (0.9-1.15) Magnesium Level 1.7 mg/dL (1.6-2.6) Ammonia 31 umol/L (11-32) Lipase 18 U/L (12-53) Thyroid Stimulating Hormone (TSH) 10.57 uIU/mL (0.55-4.78) Plasma/Serum Blood Alcohol < 3.0 mg/dL (<10) Other Laboratory Tests 12/06/24 09:11 12/04/24 05:51 Brief Hx & Hospital Course: History of Present Illness 59-year-old female presents for evaluation of syncopal episode. Per ED records and personnel patient had two syncopal episodes at home prior to arrival. In route patient blood pressure was noted to be in the 60s and heart rate in the 30s. On arrival patient was placed on epinephrine drip for a short period of time and weaned off. Currently she is on Levophed for hypotension. Patient is legally blind and dialysis dependent. Denies chest pain or shortness for breath at the moment. No unilateral weakness. No headache. No other acute complaints. Course of hospitalization: Initial treatment of the patient was for her severe hyperkalemia as well as hypocalcemia. Patient was given adequate potassium lowering agents, with refractory hyperkalemia. Patient received multiple hemodialysis treatments while in the hospital. Patient was also continued on Lokelma 10 mg p.o. daily. Echocardiogram was performed with the patient which revealed chronic pericardial effusion, large with echocardiogram also reporting no hemodynamic instability from the effusion. Discussion was made with Cardiology regarding this chronic effusion with no further treatment plans at this time. Patient was also found to be in severe shock requiring central line placement and vasopressor therapy with norepinephrine. Patient has been weaned off of vasopressor therapy in his currently hypertensive. Patient was also found to have severe ascites for which paracentesis was performed with 7.2 L removed. Patient was requesting to be discharged home. Given her current hyperkalemia, patient will be discharged after receiving hemodialysis today. She will continue all previous home medications as instructed to follow up with her PCP in 1-2 weeks. Physical examination General: Alert and Oriented x3. No acute distress. Well-nourished. Eyes: EOMI. Anicteric. Legally blind HENT: Moist mucous membranes. Lungs: Clear to auscultation bilaterally. No accessory muscle use. Cardiovascular: Regular rate and rhythm. No murmur. No JVD. Abdomen: Soft, non-tender and non-distended. No palpable masses. Ascites Extremities: No edema. Non-tender. Skin: No rashes or lesions. Warm. Neurologic: No focal neurological deficits. CN II-XII grossly intact, but not individually tested. Psychiatric: Cooperative. Appropriate mood and affect. Total time spent with patient discussing and formulating plan of care: 35 minutes. This medical document was created using an electronic medical record system with [employer] dictation system. Although this document has been carefully reviewed, there may still be some phonetic and typographical errors. These areas are purely typographical due to imperfections of the software programs, and do not reflect any compromise in the patient's medical care. Consults/Reason for consult Nephrology: ESRD with HD Cardiology: Pericardial effusion, bradycardia Condition at Discharge: Poor Final Diagnosis/Problems List Bradycardia secondary to hyperkalemia Secondary diagnosis: -hypotension, shock secondary to severe metabolic acidosis and hyperkalemia -cirrhosis -pericardial effusion -ESRD with hemodialysis -hypoglycemia -syncope -hyperkalemia -hypercalcemia -acute hypoxic respiratory failure -ascites Discharge Disposition: Home Discharge Instruct/Medications Diet: Consistent carbohydrate, Cardiac 2g Na,low cholest, Renal Activity: No Restrictions, As Tolerated Follow Up/Referral: Continue with established hemodialysis chair time Medications: Continue all home medications 36 Discharge Statement: "Patient was advised to return to the ER or call 911 if any headaches, dizziness, shortness of breath, chest pain, abdominal pain, bleeding, fevers, or worsening of medical condition. Patient was counseled about treatment plan, medications, possible side effects, patientverbalized understanding. All questions were answered to the best of my ability. This discharge took greater then 30 minutes in planning, reviewing documentation, counseling the patient, and discussing with other team members." ASSESSMENT ASSESSMENT Assessment Bradycardia secondary to hyperkalemia Date of Service: Dec 06, 2024 Billing Provider: PAVEL GUAMAN NP Common Visit Codes: 31891-ICD/OBS DISCH DAY >30min PAVEL GUAMAN NP Dec 06, 2024 14:02
== END 2024-12-06 22:05 | disposition home or self-care (01) | DRG 432 ==
LOC: ER 23:34 → EDBD 23:34 → OVERFLOW 12-03 04:10 → TELE-WESTW 12-04 17:59
PROVIDERS: ADMIT Nurse Practitioner Acute Care; ATTEND Nurse Practitioner Acute Care
PROC: 06HY33Z Insertion of Infusion Device into Lower Vein, Percutaneous Approach (ICD-10-PCS; 2024-12-03)
PROC: 0W9G3ZX Drainage of Peritoneal Cavity, Percutaneous Approach, Diagnostic (ICD-10-PCS; principal; 2024-12-04)
PROC: 5A1D70Z Performance of Urinary Filtration, Intermittent, Less than 6 Hours Per Day (ICD-10-PCS; 2024-12-04)
DX: K74.60 Unspecified cirrhosis of liver (principal); J96.01 Acute respiratory failure with hypoxia; N18.6 End stage renal disease; I50.32 Chronic diastolic (congestive) heart failure; I31.39 Other pericardial effusion (noninflammatory); R57.9 Shock, unspecified; I13.2 Hypertensive heart and chronic kidney disease with heart failure and with stage 5 chronic kidney disease, or end stage renal disease; R18.8 Other ascites; D63.1 Anemia in chronic kidney disease; Z99.2 Dependence on renal dialysis; E87.5 Hyperkalemia; I48.91 Unspecified atrial fibrillation; Z20.822 Contact with and (suspected) exposure to COVID-19; E83.52 Hypercalcemia; K72.90 Hepatic failure, unspecified without coma; E11.22 Type 2 diabetes mellitus with diabetic chronic kidney disease; I25.10 Atherosclerotic heart disease of native coronary artery without angina pectoris; H54.8 Legal blindness, as defined in USA; M10.9 Gout, unspecified; F32.A Depression, unspecified; E11.649 Type 2 diabetes mellitus with hypoglycemia without coma; E83.51 Hypocalcemia; Z79.891 Long term (current) use of opiate analgesic; Z79.4 Long term (current) use of insulin; Z83.3 Family history of diabetes mellitus; Z82.3 Family history of stroke; Z82.49 Family history of ischemic heart disease and other diseases of the circulatory system; Z86.73 Personal history of transient ischemic attack (TIA), and cerebral infarction without residual deficits; Z79.2 Long term (current) use of antibiotics; Z79.01 Long term (current) use of anticoagulants
CPT/HCPCS: 36415; 36556; 49083; 70450; 71045; 71250; 74176; 76705; 76942; 80048; 80053; 80320; 82140; 82962; 83605; 83690; 83735; 83986; 84100; 84132; 84443; 84484; 84550; 85007; 85025; 85027; 85610; 87040; 87205; 87340; 87426; 87804; 89051; 90935; 93005; 93306; 94640; 94644; G0378; J0171; J1642; J1815; P9047

== ENCOUNTER 2025-01-08 17:04 | Inpatient (IN) | payer MEDICARE, MEDICAID ==
[~2025-01-08] VITALS: Ht 167.6 cm; Wt 58.3 kg
[~2025-01-08 17:04] MED LIST changes: -BENZ100C97 PO; -DOX100T PO; -INSREG3 SC; -MIDO5TAB4 PO
--- NOTE | 2025-01-08 17:51 | ECG ---
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
--- NOTE | 2025-01-08 18:04 | DVH ---
CHEST RADIOGRAPH Indication: ams Technique: Single frontal view of the chest was obtained COMPARISON: XY CHEST XRAY 1 VIEW on DOS: 12/03/24, CXRP on DOS: 09/16/22, CHEST PORTABLE on DOS: 09/16, CXRP on DOS: 01/25/22, CXR1 on DOS: 01/24/22 FINDINGS: Lines and Tubes: None Lungs: Pulmonary vascular redistribution. No consolidation Pleura: No effusion. No pneumothorax. Cardiomediastinal contours: Cardiomegaly, improved when compared to 12/03/2024, moderate in degree Bones: Unremarkable IMPRESSION: 1. Moderate cardiomegaly, improved when compared to the prior chest x-ray of 12/03/2024 2. No pleural effusions Pulmonary vascular redistribution
[2025-01-08 18:35] LABS: Albumin 3.8 g/dL (3.2-4.8); Anion Gap 15 (5-15); Aspartate Aminotransferase 13 U/L (13-40); BUN/Creatinine Ratio 8.9 (10.0-20.0); Bilirubin, Total 0.5 mg/dL (0.2-1.0); Carbon Dioxide 22 mmol/L (20-31); Magnesium 2.1 mg/dL (1.6-2.6); Phosphorus 4.3 mg/dL (2.4-5.1); Potassium 4.4 mmol/L (3.5-5.1)
[2025-01-08 18:37] LABS: Alanine Aminotransferase < 9 U/L (7-40); Alkaline Phosphatase 147 U/L (46-116); Blood Urea Nitrogen 42 mg/dL (9-23); Chloride 96 mmol/L (98-107); Glucose 123 mg/dL (74-106); Sodium 133 mmol/L (136-145); Total Protein 5.6 g/dL (5.7-8.2)
[2025-01-08] MEDS: CALCIUM GLUC 1,000mg/50ml-NS 50 ML IV SCH (18:49)
--- NOTE | 2025-01-08 19:35 | ED.PDOC ---
Altered Mental Status HPI Comments Ms Cesar, a 59-year-old legally blind female, ESRD (MWF) dialysis-dependent, Anemia of chronic disease, CHF, Chronic hypoxic respiratory failure 2l NC baseline, end-stage diabetes, hypertension, liver cirrhosis on weekly paracentesis, CVA, Depression, Gout, High Lipids with past surgeries for appendectomy and dialysis access presented with ALOC, alert but not oriented brought by EMS. She denies chest pain, shortness of breath, unilateral weakness, headache, or other acute complaints. Her medical history includes . She does not smoke, drink alcohol, or use drugs, and lives with her family. Within past 3 weeks she presented with two syncopal episodes at home, followed by hypertension (BP in the 60s) and bradycardia (HR in the 30s) en route to the hospital, during the hospitalization she had IR guided paracentesis. Past Medical History: CHF, diabetes end-stage disease, hypertension, liver cirrhosis, Anemia, Angina, CAD, CHF (On Lasix), CVA, Depression (On trazodone), DM, ESRD (With hemodialysis on Tuesday, Tuesday, Tuesday), Gout, High Lipids (Lipitor), HTN, Liver (Liver cirrhosis with ascites and weekly paracentesis), Legally blind Past Surgical History: Appendectomy, dialysis access Family History: Noncontributory, Family hx of DM, Family hx of HTN Social Hx: Denies EtOH, Smoking and Substance use, Lives with Family. MANAGEMENT DEPARTMENT CHAIR History: No Pertinent MANAGEMENT DEPARTMENT CHAIR History Chief Complaint: General Weakness Time Seen by MD: 17:33 Primary Care Provider: PATO Harman Notes: Nurses Notes, Melt Helper Notes, Medications, Allergies Allergies: Coded Allergies: No Known Drug Allergy (Unverified Allergy, Unknown, 11/20/24) Home Meds Reported Medications Insulin Isophane & Reg (Human) (Humulin 70/30 (70-30) 100 Unit/ml) 1 Units/0.01 Ml Inj, 5 UNITS SC BID for 31 Days, #10 12/04/24 Gabapentin (Gabapentin) 100 Mg Cap, 1 CAP PO TID for 90 Days, #270 12/04/24 Docusate Sodium (Colace) 100 Mg Cap, 1 CAP PO BID for 30 Days, #60 12/04/24 Amiodarone Hcl (Amiodarone Hcl) 200 Mg Tab, 1 TAB PO DAILY for 90 Days, #90 12/04/24 Dorzolamide-Timolol (Dorzolamide Hcl/Timolol M) 1 Ml Raya, 1 DROP EACHEYE BID for 50 Days, #10 12/04/24 Midodrine HCl (Midodrine Hydrochloride) 10 Mg Tab, 1 TAB PO TID for 90 Days, #270 12/04/24 Cetirizine Hcl (Cetirizine Hcl) 5 Mg Tab, 1 TAB DAILY 09/05/22 Pantoprazole Sodium Sesquihydr (Pantoprazole Sodium Dr) 40 Mg Tab, 1 TAB DAILY 09/05/22 Diltiazem Hcl (DILTIAZEM HCL ER) 240 Mg Cap, 1 CAP PO DAILY 09/05/22 Hydrocodone-Acetaminophen (Hydrocodone Bitartrate/AC 5-325 mg) 1 Tab Tab, 1 TAB PO TID for PAIN, TAB 11/04/21 Tramadol Hcl (Tramadol Hcl) 50 Mg Tab, 50 MG PO Q6HPRN PRN for PAIN SCALE 7 THRU 10, MG 11/04/21 Ferrous Sulfate (Ferrous Sulfate) 325 Mg Tab, 325 MG PO DAILY for IRON DEFICIENCY, MG 11/04/21 Apixaban Base (ELIQUIS) 2.5 Mg Tab, 2.5 MG PO DAILY for ARRHYTHMIA for 60 Days, #60 07/24/21 Trazodone HCl (Trazodone Hydrocloride) 100 Mg Tab, 1 TAB PO DAILY for DEPRESSION for 90 Days, #90 07/24/21 Hydroxyzine Hcl (Hydroxyzine Hcl) 25 Mg Tab, 25 MG PO BID for ANXIETY for 90 Days, #180 06/04/21 Acetaminophen W/ Codeine (Tylenol W/Cod #3) 1 Tab Tb, 1 TAB PO Q6HP for PAIN 06/04/21 [place]-3 Fatty Acids (Ruth Oil) 1,000 Mg Cap, 1000 MG PO DAILY for SUPPLEMENT 06/04/21 Carvedilol (Coreg) 6.25 Mg Tab, 6.25 MG PO BID for HYPERTENSION 01/14/21 Amitriptyline HCl (Amitriptyline Hydrochlori) 75 Mg Tab, 75 MG PO HS for ANXIETY, TAB 01/14/21 Hydralazine HCl (Hydralazine HCl) 25 Mg Tab, 25 MG PO Q8HPRN for HYPERTENSION, TAB 4/21/21 Atorvastatin Calcium (Lipitor) 20 Mg Tab, 20 MG PO DAILY for HYPERLILIDEMIA for 90 Days, #90 01/14/21 Furosemide (Furosemide) 80 Mg Tab, 80 MG PO DAILY for EDEMA 01/27/18 Sevelamer Carbonate (Renvela) 800 Mg Tab, 2 TAB PO TIDWM for 90 Days, #540 01/27/18 Mode of Arrival: EMS Severity: Moderate Timing: Hours Duration: Since onset Prehospital treatment: None Quality: Decreased Alertness, Change in Behavior, Confusion, Not Eating History of: CVA, Diabetes Associated Signs and Symptoms: None Past Medical History PAST MEDICAL HISTORY: Anemia, Angina, CAD, CHF, CVA, Depression, DM, ESRD, Gout, High Lipids, HTN, Liver Past Medical History (Other): as per HPI Surgical History: Appendectomy Surgical History (Other): as per HPI MANAGEMENT DEPARTMENT CHAIR History: No Pertinent MANAGEMENT DEPARTMENT CHAIR History Family History Family History: Reviewed,noncontributory to illness, Family hx of DM, Family hx of HTN, Family hx of stroke Family History (Other): as per HPI Social History Smoker: Non-Smoker Alcohol: Denies ETOH Use Drugs: Denies Drug Use Lives In: Home Constitutional: denies: chills, diaphoresis, fatigue, fever, malaise, sweats, weakness, others EENTM: denies: blurred vision, double vision, ear bleeding, ear discharge, ear drainage, ear pain, ear ringing, eye pain, eye redness, hearing loss, mouth pa in, mouth swelling, nasal discharge, nose bleeding, nose congestion, nose pain, photophobia, tearing, throat pain, throat swelling, voice changes, others Respiratory: denies: cough, hemoptysis, orthopnea, SOB at rest, shortness of breath, SOB with excertion, stridor, wheezing, others Cardiovascular: denies: chest pain, dizzy spells, diaphoresis, Dyspnea on exertion, edema, irregular heart beat, left arm pain, lightheadedness, palpitations, PND, syncope, others Gastrointestinal: reports: abdomen distended; denies: abdominal pain, blood streaked bowels, constipated, diarrhea, dysphagia, difficulty swallowing, hematemesis, melena, nausea, poor appetite, poor fluid intake, rectal bleeding, rectal pain, vomiting, others Genitourinary: denies: abnormal vagina bleeding, burning, dyspareunia, dysuria, flank pain, frequency, hematuria, incontinence, pain, , vagina discharge, urgency, others Neurological: reports: others (ALOC); denies: dizziness, fainting, headache, left sided numbness, left sided weakness, numbness, paresthesia, pre-existing deficit, right sided numbness, right sided weakness, seizure, speech problems, tingling, tremors, weakness Musculoskeletal: denies: back pain, gout, joint pain, joint swelling, muscle pain, muscle stiffness, neck pain, others Integumetry: denies: bruises, change in color, change in hair/nails, dryness, laceration, lesions, lumps, rash, wounds, others Allergic/Immunocompromised: denies: Difficulty Healing, Frequent Infections, Hives, Itching, others Hematologic/Lymphatic: denies: anemia, blood clots, easy bleeding, easy bruising, swollen glands, others Endocrine: denies: excessive hunger, excessive sweating, excessive thirst, excessive urination, flushing, intolerance to cold, intolerance to heat, unexplained weight gain, unexplained weight loss, others Psychiatric: denies: anxiety, bipolar disorder, depression, hopeless, panic disorder, schizophrenia, sleepless, suicidal, others Physical Exam General Appearance: Mild Distress HEENT: Pale Conjuntivae (L), Pale Conjuntivae (R) Neck: Full Range of Motion, Normal Inspection, Other (has neck dressings, no active bleeding noted. ) Respiratory: Chest Non-Tender, Decreased Breath Sounds, Normal Breath Sounds, Rales, Other (2l nc) Cardiovascular: No Edema, No JVD, No Murmur, No Gallop, Normal Peripheral Pulses, Regular Rate/Rhythm Breast Exam: Deferred Gastrointestinal: Distended, Normal Bowel Sounds, Other (fluid thrill present, b/l flank full pointing towards ascites) Genitalia: Deferred Pelvic: Deferred Rectal: Deferred Extremities: Leg edema, No calf tenderness, Non-tender, Slow capillary refill Neurologic: Other (not following commands, non verbal, alert awake but oblivious to surrounding. responds to pain and tactital ) Cerebellar Function: Unable to Test Reflexes: None Skin: Dry, Pallor, Warm Lymphatic: NOT DONE Was a procedure done? Was a procedure done?: No Other Procedure Informed consent obtained: No Risks, benefits, and alternati: No Differential Diagnosis (ALOC) Differential Diagnosis: Encephalopathy, Sepsis, CVA, Renal Failure Other Differential Diagnosis SBP X-Ray, Labs, Meds, VS Vital Signs Date Time Temp Pulse Resp B/P (MAP) Pulse Ox O2 Delivery O2 Flow Rate FiO2 01/08/25 20:00 71 01/08/25 17:52 118 14 106/52 (70) 97 01/08/25 17:52 Nasal Cannula* 2 28 01/08/25 17:17 110 01/08/25 17:04 97.6 72 16 96/20 (45) 95 97.6 Lab Test 01/08/25 20:55 01/08/25 19:46 01/08/25 19:36 01/08/25 18:00 Range/Units Troponin I High Sensitivity Pending 267 *H </=34 ng/L Lactic Acid Level 2.6 *H 0.4-2.0 mmol/L White Blood Count 10.4 4.4-10.8 10^3/uL Red Blood Count 3.95 L 4.0-5.20 10^6/uL Hemoglobin 12.6 12.2-16.2 g/dL Hematocrit 40.8 36.0-46.0 % Mean Corpuscular Volume 103.1 H 80.0-100.0 fL Mean Corpuscular Hemoglobin 32.0 28.0-32.0 pg Mean Corpuscular Hemoglobin Concent 31.0 L 32.0-36.0 g/dL Red Cell Distribution Width 15.4 H 11.8-14.3 % Platelet Count 82 L 140-450 10^3/uL Mean Platelet Volume 11.0 H 6.9-10.8 fL Neutrophils (%) (Auto) 79.6 37.0-80.0 % Lymphocytes (%) (Auto) 7.8 L 10.0-50.0 % Monocytes (%) (Auto) 9.7 0.0-12.0 % Eosinophils (%) (Auto) 2.7 0.0-7.0 % Basophils (%) (Auto) 0.2 0.0-2.0 % Neutrophils # (Auto) 8.3 1.6-8.6 10 ^3/uL Lymphocytes # (Auto) 0.8 0.4-5.4 10 ^3/uL Monocytes # (Auto) 1.0 0-1.3 10 ^3/uL Eosinophils # (Auto) 0.3 0-0.8 10 ^3/uL Basophils # (Auto) 0 0-0.2 10 ^3/uL Nucleated Red Blood Cells 0.3 % Platelet Estimate Pending Prothrombin Time 14.5 H 9.3-11.8 sec Prothrombin Time INR 1.42 H 0.9-1.15 B-Type Natriuretic Peptide 2779.12 0-100 pg/mL Sodium Level 133 L 136-145 mmol/L Potassium Level 4.4 3.5-5.1 mmol/L Chloride Level 96 L 98-107 mmol/L Carbon Dioxide Level 22 20-31 mmol/L Anion Gap 15 5-15 Blood Urea Nitrogen 42 H 9-23 mg/dL Creatinine 4.70 H 0.550-1.02 mg/dL Glomerular Filtration Rate Calc 10 >90 mL/min BUN/Creatinine Ratio 8.9 L 10.0-20.0 Serum Glucose 123 H 74-106 mg/dL Calcium Level 8.0 L 8.7-10.4 mg/dL Phosphorus Level 4.3 2.4-5.1 mg/dL Magnesium Level 2.1 1.6-2.6 mg/dL Total Bilirubin 0.5 0.2-1.0 mg/dL Aspartate Amino Transferase (AST) 13 13-40 U/L Alanine Aminotransferase (ALT) < 9 7-40 U/L Alkaline Phosphatase 147 H 46-116 U/L Ammonia 12 11-32 umol/L Total Protein 5.6 L 5.7-8.2 g/dL Albumin 3.8 3.2-4.8 g/dL Current Medications Medications (Trade) Dose Ordered Sig/Honey Route Start Time Stop Time Status Last Admin Calcium Gluconate/ Sodium Chloride 50 ml @ 100 mls/hr Q30M IV 01/08/25 17:45 01/08/25 18:44 DC 01/08/25 19:55 Time of 1ST Reevaluation: 19:27 Reevaluation 1ST: Unchanged (Decision was made to admit to inpatient for futher workup and evaluation. IV Calcium for cardioprotection. Workup in progress. NPO, aspiration precautions. INR to check due for next paracentesis. ) Time of 2ND Reevaluation: 21:42 Reevaluation 2ND: Unchanged (Discussed with Dr. Bell. IV fluid broad spectrum abx started after discussion with Dr. Clemente. Igor signed off to admitting resident Dr. Toney. ) Patient Education/Counseling: Pt Unresponsive Family Education/Counseling: No Family Present Departure 1 Departure Time of Disposition: 19:24 Impression: Primary Impression: Liver cirrhosis Qualified Codes: K74.60 - Unspecified cirrhosis of liver; R18.8 - Other ascites Additional Impressions: End stage renal disease on dialysis Hypotension Qualified Codes: I95.9 - Hypotension, unspecified ESRD (end stage renal disease) on dialysis Altered level of consciousness Disposition: ADMITTED INPATIENT Admit to: Tele Condition: Guarded Referrals NEphro Critical Care Note Critical Care Time?: Yes (35 min-critical care time only) Critical care comment: Excluding procedures Additional Comments Additional Comments Additional Comments inpatient treatment to continue Stability Stability form required: ALEXANDRA Snachez RESIDENT Jan 08, 2025 19:35
[2025-01-08 20:06] LABS: Basophils # (auto) 0 10 ^3/uL (0-0.2); Eosinophils # (auto) 0.3 10 ^3/uL (0-0.8); Hemoglobin 12.6 g/dL (12.2-16.2); Lymphocytes # (auto) 0.8 10 ^3/uL (0.4-5.4); Neutrophils # (auto) 8.3 10 ^3/uL (1.6-8.6); Red Blood Cells 3.95 10^6/uL (4.0-5.20)
[2025-01-08 20:08] LABS: Basophils % (auto) 0.2 % (0.0-2.0); Eosinophils % (auto) 2.7 % (0.0-7.0); Hematocrit 40.8 % (36.0-46.0); Lymphocytes % (auto) 7.8 % (10.0-50.0); Mean Corpuscular Volume 103.1 fL (80.0-100.0); Monocytes % (auto) 9.7 % (0.0-12.0); Neutrophils % (auto) 79.6 % (37.0-80.0); Nucleated Red Blood Cells % 0.3 %; Platelet Count (auto) 82 10^3/uL (140-450); Red Cell Distribution Width 15.4 % (11.8-14.3); White Blood Cell 10.4 10^3/uL (4.4-10.8)
[2025-01-08 20:21] LABS: INR 1.42 (0.9-1.15); Prothrombin Time 14.5 sec (9.3-11.8)
[2025-01-08 20:28] LABS: Lactic Acid w/Reflex 2.6 mmol/L (0.4-2.0)
[2025-01-08] MEDS: PIPERACILLIN-TAZOB 3.375GM 100 ML IV ONE (21:30)
[2025-01-08] MEDS: LACTATED RINGER'S 250 ML IV ONE (21:30)
[2025-01-08] MEDS ORDERED: VANCOMYCIN PER PHARMACY 0 MG IV SCH (21:30)
--- NOTE | 2025-01-08 21:37 | DVHHPRES ---
History of Present Illness Resident Creating Document: BEATRIZ EMMANUEL RESIDENT History of Present Illness 59 Year old female who is legally blind because of diabetic nephropathy, has past medical history of end-stage renal disease gets dialysis on Tuesday, anemia of chronic disease, CHF, diabetes, hypertension, liver cirrhosis, ascites, gout and hyperlipidemia presented with complaint of altered level of consciousness. Patient was recently admitted at [facility] for around 12 days because she missed her dialysis. In [facility] patient received dialysis and was found to have ascites where she got paracentesis and was told that she has" water around the heart and the lungs", patient was discharged denied before presenting to the ED. patient started having altered level of consciousness at home, and was groggy and confused. Patient has slept all day and that concerned the daughter who brought the patient to the ER History was obtained from daughter through phone Patient is currently alert and oriented x1 confused. Daughter also mentioned that patient is saying that she can see colors but patient is legally blind. Medical history diabetic nephropathy, has past medical history of end-stage renal disease gets dialysis on Tuesday, anemia of chronic disease, CHF, diabetes, hypertension, liver cirrhosis, ascites, gout and hyperlipidemia Past surgical history Multiple paracentesis in the past Social history Not obtained as patient is confused Medication history not obtained as patient is confused Allergic history No known allergies Review of Systems Review of Systems ROS Could not be done as patient is confused Allergies: Coded Allergies: No Known Drug Allergy (Unverified Allergy, Unknown, 11/20/24) Medications Current Medications Medications Dose Ordered Sig/Honey Route Start Time Stop Time Status Last Admin Dose Admin Vancomycin HCl 0 ml @ 0 mls/hr UD IV 01/08/25 21:30 UNV Exam Vital Signs Vital Signs Date Time Temp Pulse Resp B/P (MAP) Pulse Ox O2 Delivery O2 Flow Rate FiO2 01/08/25 20:00 71 01/08/25 17:52 14 106/52 (70) 97 01/08/25 17:52 Nasal Cannula* 2 28 01/08/25 17:04 97.6 97.6 Exam Examination General Appearance: Alert, Oriented x1 HEENT: EOMI Respiratory: Clear to auscultation, Normal air movement Cardiovascular: Regular rate, Normal S1, Normal S2 Abdominal: Abdominal distention, tenderness Normal bowel sounds Extremities: No cyanosis, No edema, Normal pulses, No tenderness/swelling Skin: No rashes, No breakdown Neuro: Confused Labs/Xrays Labs Test 01/08/25 20:55 01/08/25 19:46 01/08/25 19:36 01/08/25 18:00 Range/Units Lactic Acid Level 2.6 *H 0.4-2.0 mmol/L White Blood Count 10.4 4.4-10.8 10^3/uL Red Blood Count 3.95 L 4.0-5.20 10^6/uL Hemoglobin 12.6 12.2-16.2 g/dL Hematocrit 40.8 36.0-46.0 % Mean Corpuscular Volume 103.1 H 80.0-100.0 fL Mean Corpuscular Hemoglobin 32.0 28.0-32.0 pg Mean Corpuscular Hemoglobin Concent 31.0 L 32.0-36.0 g/dL Red Cell Distribution Width 15.4 H 11.8-14.3 % Platelet Count 82 L 140-450 10^3/uL Mean Platelet Volume 11.0 H 6.9-10.8 fL Neutrophils (%) (Auto) 79.6 37.0-80.0 % Lymphocytes (%) (Auto) 7.8 L 10.0-50.0 % Monocytes (%) (Auto) 9.7 0.0-12.0 % Eosinophils (%) (Auto) 2.7 0.0-7.0 % Basophils (%) (Auto) 0.2 0.0-2.0 % Neutrophils # (Auto) 8.3 1.6-8.6 10 ^3/uL Lymphocytes # (Auto) 0.8 0.4-5.4 10 ^3/uL Monocytes # (Auto) 1.0 0-1.3 10 ^3/uL Eosinophils # (Auto) 0.3 0-0.8 10 ^3/uL Basophils # (Auto) 0 0-0.2 10 ^3/uL Nucleated Red Blood Cells 0.3 % Prothrombin Time 14.5 H 9.3-11.8 sec Prothrombin Time INR 1.42 H 0.9-1.15 B-Type Natriuretic Peptide 2779.12 0-100 pg/mL Sodium Level 133 L 136-145 mmol/L Potassium Level 4.4 3.5-5.1 mmol/L Chloride Level 96 L 98-107 mmol/L Carbon Dioxide Level 22 20-31 mmol/L Anion Gap 15 5-15 Blood Urea Nitrogen 42 H 9-23 mg/dL Creatinine 4.70 H 0.550-1.02 mg/dL Glomerular Filtration Rate Calc 10 >90 mL/min BUN/Creatinine Ratio 8.9 L 10.0-20.0 Serum Glucose 123 H 74-106 mg/dL Calcium Level 8.0 L 8.7-10.4 mg/dL Phosphorus Level 4.3 2.4-5.1 mg/dL Magnesium Level 2.1 1.6-2.6 mg/dL Total Bilirubin 0.5 0.2-1.0 mg/dL Aspartate Amino Transferase (AST) 13 13-40 U/L Alanine Aminotransferase (ALT) < 9 7-40 U/L Alkaline Phosphatase 147 H 46-116 U/L Ammonia 12 11-32 umol/L Total Protein 5.6 L 5.7-8.2 g/dL Albumin 3.8 3.2-4.8 g/dL Assessment/Plan Assessment/Plan A and P #Metabolic encephalopathy ?sepsis ?hepatic encephalopathy -Head CT -TSH b12 folate -ammonia # shock likely septic Currently on norepinephrine drip IVC dilated on point of care ultrasound #Sepsis possible source as SBP -IVC dilated, was given fluids in the ER given IV fluids in the ER -Zosyn vancomycin Blood culture Lactic acid Consider paracentesis for diagnosis for SBP #Anemia of chronic disease -monitor #ESRD -patient gets dialysis on Tuesday Nephrology consulted #DM2 Sliding scale insulin #Chronic resp failure, on 2 L oxygen Currently on room air #Liver cirrhosis #Ascites -ultrasound revealed ascites Consider IR consult for paracentesis #Gout -resume home meds once stable #HLD -resume home meds once stable Case discussion with Dr. Dickinson Plan discussed with: Other Date of Service: Jan 08, 2025 Billing Provider: BAN DICKINSON MD Common Visit Codes: 66310-HQHBVIJ INP/OBS CARE (HIGH) BEATRIZ EMMANUEL RESIDENT Jan 08, 2025 21:37 BAN DICKINSON MD Jan 09, 2025 13:37
[2025-01-08 21:56] LABS: Anisocytosis Moderate; Large Platelets FEW; Macrocytosis Moderate; Platelet Estimate Decreased
[2025-01-08 21:57] LABS: Stomatocytes Moderate
[2025-01-09] VITALS (70 sets, daily range): BP systolic 41–148; BP diastolic 19–90; PULSE 63–143; RESP 7–28; TEMP 98–98.2; O2SAT 52–100
--- NOTE | 2025-01-09 00:55 | DVH ---
INDICATION: look for ascites TECHNIQUE: Multiple real-time sonographic images were obtained of the right upper quadrant. COMPARISON: US ABDOMEN LIMITED on DOS: 12/03/24 FINDINGS / IMPRESSION: Moderate amount of ascites noted in all 4 quadrants.
[2025-01-09 01:21] LABS: Base Excess -4.5 mmol/L (-2.0-3.0)
[2025-01-09 01:25] LABS: Folate (Folic Acid) 19.06 ng/mL (>5.38)
[2025-01-09] MEDS: NOREPINEPHRINE 8 MG/250ML KIT 250 ML IV SCH (01:36)
--- NOTE | 2025-01-09 03:15 | DVH ---
EXAM: CT HEAD WITHOUT CONTRAST INDICATION: ALOC TECHNIQUE: CT of the head without intravenous contrast. Radiation Dose Information: CT Dose: CTDI volume is 51.01 mGy. Dose-length product is 817.87 mGy*cm The dose indicators for CT are the volume Computed Tomography (CT) Dose Index (CTDIvol) and the Dose Length Product (DLP), and are measured in units of mGy and mGy-cm, respectively. These indicators are not patient dose, but values generated from the CT scanner acquisition factors. The report includes radiation exposure data for exposures received during this examination. COMPARISON: CT HEAD WITHOUT CONTRAST on DOS: 12/03/24, HEAD WITHOUT CONTRAST on DOS: 09/16/22 FINDINGS: There is no evidence of acute intracranial hemorrhage, extra-axial collection, mass effect, midline s hift, herniation or hydrocephalus. There is cerebral atrophy. The arevalo-white differentiation is intact. Patchy periventricular and subcortical white matter hypoattenuation is nonspecific but may be related to small vessel ischemic disease. The visualized paranasal sinuses and mastoid air cells are clear. The surrounding soft tissues and osseous structures are unremarkable. IMPRESSION: 1. No acute intracranial abnormality.
[2025-01-09 04:06] LABS: Potassium 4.7 mmol/L (3.5-5.1)
[2025-01-09 04:07] LABS: Anion Gap 17 (5-15); Carbon Dioxide 22 mmol/L (20-31)
[2025-01-09 04:12] LABS: BUN/Creatinine Ratio 9.8 (10.0-20.0)
[2025-01-09 04:13] LABS: Magnesium 2.2 mg/dL (1.6-2.6)
[2025-01-09 04:46] LABS: Blood Urea Nitrogen 48 mg/dL (9-23); Calcium 8.5 mg/dL (8.7-10.4); Chloride 94 mmol/L (98-107); Glucose 153 mg/dL (74-106); Sodium 133 mmol/L (136-145)
[2025-01-09 04:53] LABS: COVID19 ANTIGEN SOFIA FIA NEGATIVE (NEGATIVE); Rapid Influenza A Negative (Negative); Rapid Influenza B Negative (Negative)
[2025-01-09] MEDS: InsuLIN REG 1unit/0.01ml Soln (100units/ml) SC SCH (06:00)
[2025-01-09] MEDS: ACCU-CHEK COMFORT CURVE STRIP VI SCH (06:28)
--- NOTE | 2025-01-09 07:57 | ECG ---
[facility] Test Date: 2025-01-09 Test Time: 06:34:06 Pat Name: PINO FERRERA Department: Respiratoy Room: 0266 A Gender: F Group Sales Representative: : 1965 Requested By: JUVE OSPINA Order Number: [id number] Reading MD: Balta Rosa Measurements Intervals [place] Rate: 129 P: 0 IA: 0 QRS: 232 QRSD: 108 T: 68 QT: 322 QTc: 472 Interpretive Statements Uncertain rhythm: review Low voltage, extremity and precordial leads RSR' in V1 or V2, right VCD or RVH Electronically Signed On 01-09-2025 20:36:46 PDT by Balta Rosa Please click the below link to view image of tracing.
[2025-01-09 09:04] LABS: Basophils # (auto) 0 10 ^3/uL (0-0.2); Basophils % (auto) 0.1 % (0.0-2.0); Eosinophils # (auto) 0.9 10 ^3/uL (0-0.8); Eosinophils % (auto) 5.5 % (0.0-7.0); Hematocrit 43.7 % (36.0-46.0); Hemoglobin 13.2 g/dL (12.2-16.2); Lymphocytes # (auto) 1.1 10 ^3/uL (0.4-5.4); Lymphocytes % (auto) 7.1 % (10.0-50.0); Mean Corpuscular Hemoglobin 31.9 pg (28.0-32.0); Mean Corpuscular Hgb Conc. 30.2 g/dL (32.0-36.0); Mean Corpuscular Volume 105.4 fL (80.0-100.0); Monocytes # (auto) 2.3 10 ^3/uL (0-1.3); Neutrophils # (auto) 11.8 10 ^3/uL (1.6-8.6); Neutrophils % (auto) 73.3 % (37.0-80.0); Nucleated Red Blood Cells % 0.4 %; Platelet Count (auto) 100 10^3/uL (140-450); Red Blood Cells 4.15 10^6/uL (4.0-5.20); Red Cell Distribution Width 15.9 % (11.8-14.3); White Blood Cell 16.1 10^3/uL (4.4-10.8)
[2025-01-09] MEDS ORDERED: PIPERACILLIN-TAZOB 3.375GM 100 ML IV SCH (10:00)
[2025-01-09] MEDS ORDERED: PIPERACILLIN-TAZOB 2.25GM 50 ML IV SCH (10:05)
[2025-01-09] MEDS: HYDROcodone-ACET 5/325MG TAB PO PRN (11:52)
[2025-01-09] MEDS: MORPHINE SULFATE INJ 2 MG/ml SYRG ONE (13:14)
[2025-01-09] MEDS: MORPHINE SULFATE INJ 2 MG/ml SYRG IV ONE (13:30)
--- NOTE | 2025-01-09 13:58 | DVHINCON2 ---
Date of service: Jan 09, 2025 Reason for Consultation ESRD History of Present Illness 59-year-old female with past medical history of end-stage renal disease on hemodialysis, refractory so ascites due to cirrhosis and recurrent pericardial effusions, diabetes, blindness. Patient has multiple and recurrent hospitalizations due to fluid overload, hypotension and need for abdominal drainage of ascites. Patient is status post pericardial window at [facility] less than seven days ago. She now presents to the hospital complaining of weakness. She was admitted to the ICU due to hypotension requiring pressors. Allergies: Coded Allergies: No Known Drug Allergy (Unverified Allergy, Unknown, 11/20/24) Home Meds Reported Medications Insulin Isophane & Reg (Human) (Humulin 70/30 (70-30) 100 Unit/ml) 1 Units/0.01 Ml Inj, 5 UNITS SC BID for 31 Days, #10 12/04/24 Gabapentin (Gabapentin) 100 Mg Cap, 1 CAP PO TID for 90 Days, #270 12/04/24 Docusate Sodium (Colace) 100 Mg Cap, 1 CAP PO BID for 30 Days, #60 12/04/24 Amiodarone Hcl (Amiodarone Hcl) 200 Mg Tab, 1 TAB PO DAILY for 90 Days, #90 12/04/24 Dorzolamide-Timolol (Dorzolamide Hcl/Timolol M) 1 Ml Raya, 1 DROP EACHEYE BID for 50 Days, #10 12/04/24 Midodrine HCl (Midodrine Hydrochloride) 10 Mg Tab, 1 TAB PO TID for 90 Days, #270 12/04/24 Cetirizine Hcl (Cetirizine Hcl) 5 Mg Tab, 1 TAB DAILY 09/05/22 Pantoprazole Sodium Sesquihydr (Pantoprazole Sodium Dr) 40 Mg Tab, 1 TAB DAILY 09/05/22 Diltiazem Hcl (DILTIAZEM HCL ER) 240 Mg Cap, 1 CAP PO DAILY 09/05/22 Hydrocodone-Acetaminophen (Hydrocodone Bitartrate/AC 5-325 mg) 1 Tab Tab, 1 TAB PO TID for PAIN, TAB 11/04/21 Tramadol Hcl (Tramadol Hcl) 50 Mg Tab, 50 MG PO Q6HPRN PRN for PAIN SCALE 7 THRU 10, MG 11/04/21 Ferrous Sulfate (Ferrous Sulfate) 325 Mg Tab, 325 MG PO DAILY for IRON DEFICIENCY, MG 11/04/21 Apixaban Base (ELIQUIS) 2.5 Mg Tab, 2.5 MG PO DAILY for ARRHYTHMIA for 60 Days, #60 07/24/21 Trazodone HCl (Trazodone Hydrocloride) 100 Mg Tab, 1 TAB PO DAILY for DEPRESSION for 90 Days, #90 07/24/21 Hydroxyzine Hcl (Hydroxyzine Hcl) 25 Mg Tab, 25 MG PO BID for ANXIETY for 90 Days, #180 06/04/21 Acetaminophen W/ Codeine (Tylenol W/Cod #3) 1 Tab Tb, 1 TAB PO Q6HP for PAIN 06/04/21 [place]-3 Fatty Acids (Mcallen Oil) 1,000 Mg Cap, 1000 MG PO DAILY for SUPPLEMENT 06/04/21 Carvedilol (Coreg) 6.25 Mg Tab, 6.25 MG PO BID for HYPERTENSION 01/14/21 Amitriptyline HCl (Amitriptyline Hydrochlori) 75 Mg Tab, 75 MG PO HS for ANXIETY, TAB 01/14/21 Hydralazine HCl (Hydralazine HCl) 25 Mg Tab, 25 MG PO Q8HPRN for HYPERTENSION, TAB 01/14/21 Atorvastatin Calcium (Lipitor) 20 Mg Tab, 20 MG PO DAILY for HYPERLILIDEMIA for 90 Days, #90 01/14/21 Furosemide (Furosemide) 80 Mg Tab, 80 MG PO DAILY for EDEMA 01/27/18 Sevelamer Carbonate (Renvela) 800 Mg Tab, 2 TAB PO TIDWM for 90 Days, #540 01/27/18 Current Medications Current Medications Medications (Trade) Dose Ordered Sig/Honey Route PRN Reason Start Time Stop Time Status Last Admin Calcium Gluconate/ Sodium Chloride 50 ml @ 100 mls/hr Q30M IV 01/08/25 17:45 01/08/25 18:44 DC 01/08/25 19:55 Vancomycin HCl 0 ml @ 0 mls/hr UD IV 01/08/25 21:30 Diagnostic Test (Pha) (Accu-Chek Comfort Curve T) 1 strip Q6HR 01/09/25 06:00 01/09/25 06:28 Insulin Human Regular (InsuLIN R) Q6HR SC 01/09/25 06:00 Dextrose 50 ml UD PRN IV Blood Sugar LESS THAN 60 01/09/25 00:30 Piperacillin Sod/ Tazobactam Sod 100 ml @ 25 mls/hr Q12HR IV 01/09/25 10:00 01/09/25 08:48 DC Norepinephrine Bitartrate 250 ml @ 3.75 mls/hr Q24H IV 01/09/25 01:15 01/09/25 01:36 Piperacillin Sod/ Tazobactam Sod 50 ml @ 12.5 mls/hr Q8H IV 01/09/25 10:05 Pantoprazole Sodium (Protonix) 40 mg DAILY IV 01/10/25 10:00 Acetaminophen/ Hydrocodone Bitart (Torrey 5/325MG Tab) 1 tab Q8HPRN PRN PO MODERATE PAIN (4-6 PAIN SCALE) 01/09/25 10:30 01/09/25 11:52 Ondansetron HCl (Zofran) 4 mg Q8HPRN PRN IV NAUSEA / VOMITING 01/09/25 10:30 Acetaminophen (Tylenol Tablet) 650 mg Q6HP PRN PO PAIN SCALE 1-3 OR TEMP>100.4 01/09/25 10:30 Family History: Diabetes mellitus G8 MOTHER, Onset:50's - 60 Family history: Cardiovascular disease G8 MOTHER (PALPITATIONS) Family history: Diabetes mellitus G8 MOTHER G8 FATHER G8 BROTHER G8 BROTHER Family history: Hypertension G8 MOTHER G8 FATHER Hypertension G8 MOTHER, Onset:40's - 50 Review of Systems Weakness and abdominal distention H&P Exam Vital Signs/I&O Vital Sign Date Time Temp Pulse Resp B/P (MAP) Pulse Ox O2 Delivery O2 Flow Rate FiO2 01/09/25 08:00 79 01/09/25 08:00 11 100 Nasal Cannula* 2 28 01/09/25 06:36 73/26 01/09/25 05:23 98.0 98.0 Intake and Output 01/08/25 01/09/25 19:00 07:00 Intake Total 126.25 ml Balance 126.25 ml Intake IV Total 126.25 ml Physical Exam Middle-aged female Appears ill chronic illness Clinical blindness Not in respiratory distress Moderate ascites with fluid wave Bilateral pitting edema Sinus tachycardia Labs/Diagnostic Data Labs/Diagnostic Data Laboratory Tests Test 01/09/25 11:23 01/09/25 09:07 01/09/25 06:26 01/09/25 04:28 Range/Units POC Glucose 183 H 120 H 70-106 mg/dl Lactic Acid Level 2.0 0.4-2.0 mmol/L White Blood Count 16.1 #H 4.4-10.8 10^3/uL Red Blood Count 4.15 4.0-5.20 10^6/uL Hemoglobin 13.2 12.2-16.2 g/dL Hematocrit 43.7 36.0-46.0 % Mean Corpuscular Volume 105.4 H 80.0-100.0 fL Mean Corpuscular Hemoglobin 31.9 28.0-32.0 pg Mean Corpuscular Hemoglobin Concent 30.2 L 32.0-36.0 g/dL Red Cell Distribution Width 15.9 H 11.8-14.3 % Platelet Count 100 L 140-450 10^3/uL Mean Platelet Volume 11.7 H 6.9-10.8 fL Neutrophils (%) (Auto) 73.3 37.0-80.0 % Lymphocytes (%) (Auto) 7.1 L 10.0-50.0 % Monocytes (%) (Auto) 14.0 H 0.0-12.0 % Eosinophils (%) (Auto) 5.5 0.0-7.0 % Basophils (%) (Auto) 0.1 0.0-2.0 % Neutrophils # (Auto) 11.8 H 1.6-8.6 10 ^3/uL Lymphocytes # (Auto) 1.1 0.4-5.4 10 ^3/uL Monocytes # (Auto) 2.3 H 0-1.3 10 ^3/uL Eosinophils # (Auto) 0.9 H 0-0.8 10 ^3/uL Basophils # (Auto) 0 0-0.2 10 ^3/uL Nucleated Red Blood Cells 0.4 % Troponin I High Sensitivity 593 *H </=34 ng/L Test 01/09/25 03:50 01/09/25 03:35 01/09/25 01:15 01/09/25 00:57 Range/Units Influenza Type A Antigen Negative Negative Influenza Type B Antigen Negative Negative SARS-CoV-2 Antigen (Rapid) Negative NEGATIVE Sodium Level 133 L 136-145 mmol/L Potassium Level 4.7 3.5-5.1 mmol/L Chloride Level 94 L 98-107 mmol/L Carbon Dioxide Level 22 20-31 mmol/L Anion Gap 17 H 5-15 Blood Urea Nitrogen 48 H 9-23 mg/dL Creatinine 4.91 H 0.550-1.02 mg/dL Glomerular Filtration Rate Calc 10 >90 mL/min BUN/Creatinine Ratio 9.8 L 10.0-20.0 Serum Glucose 153 H 74-106 mg/dL Calcium Level 8.5 L 8.7-10.4 mg/dL Magnesium Level 2.2 1.6-2.6 mg/dL Troponin I High Sensitivity 527 *H 464 *H </=34 ng/L Blood Gas Specimen Type Arterial Blood Gas Sample Site Left brachial Blood Gas Patient Temperature 37.0 Arterial Blood Date Drawn [id number] Arterial Blood pH 7.337 L 7.350-7.450 Arterial Blood Partial Pressure CO2 40.0 32.0-45.0 mmHg Arterial Blood Partial Pressure O2 100.2 83.0-108.0 mmHg Arterial Blood HCO3 21.0 21.0-28.0 mmol/L Arterial Blood Oxygen Saturation 97.2 94.0-98.0 % Arterial Blood Base Excess -4.5 L -2.0-3.0 mmol/L Arterial Blood Oxyhemoglobin 96.0 94.0-98.0 % Arterial Blood Carboxyhemoglobin 1.0 0.5-1.5 % Arterial Blood Methemoglobin 0.2 0.0-1.5 % Dima Test Yes Blood Gas Total Hemoglobin 12.20 12.0-16.0 g/dL Blood Gas Modality Nasal cannula FiO2 % 32.0 Hemoglobin A1c 6.8 H <5.7 % A1C Vitamin B12 Level 868 211-911 pg/mL Folic Acid 19.06 >5.38 ng/mL Thyroid Stimulating Hormone (TSH) 0.97 0.55-4.78 uIU/mL Test 01/08/25 22:55 01/08/25 21:53 01/08/25 20:55 01/08/25 19:46 Range/Units Troponin I High Sensitivity 418 *H 304 *H </=34 ng/L Lactic Acid Level 2.6 *H 2.6 *H 0.4-2.0 mmol/L Test 01/08/25 19:36 01/08/25 18:00 Range/Units White Blood Count 10.4 4.4-10.8 10^3/uL Red Blood Count 3.95 L 4.0-5.20 10^6/uL Hemoglobin 12.6 12.2-16.2 g/dL Hematocrit 40.8 36.0-46.0 % Mean Corpuscular Volume 103.1 H 80.0-100.0 fL Mean Corpuscular Hemoglobin 32.0 28.0-32.0 pg Mean Corpuscular Hemoglobin Concent 31.0 L 32.0-36.0 g/dL Red Cell Distribution Width 15.4 H 11.8-14.3 % Platelet Count 82 L 140-450 10^3/uL Mean Platelet Volume 11.0 H 6.9-10.8 fL Neutrophils (%) (Auto) 79.6 37.0-80.0 % Lymphocytes (%) (Auto) 7.8 L 10.0-50.0 % Monocytes (%) (Auto) 9.7 0.0-12.0 % Eosinophils (%) (Auto) 2.7 0.0-7.0 % Basophils (%) (Auto) 0.2 0.0-2.0 % Neutrophils # (Auto) 8.3 1.6-8.6 10 ^3/uL Lymphocytes # (Auto) 0.8 0.4-5.4 10 ^3/uL Monocytes # (Auto) 1.0 0-1.3 10 ^3/uL Eosinophils # (Auto) 0.3 0-0.8 10 ^3/uL Basophils # (Auto) 0 0-0.2 10 ^3/uL Nucleated Red Blood Cells 0.3 % Platelet Estimate Decreased Large Platelets Few Anisocytosis (manual) Moderate Macrocytosis Moderate Stomatocytes Moderate Prothrombin Time 14.5 H 9.3-11.8 sec Prothrombin Time INR 1.42 H 0.9-1.15 Troponin I High Sensitivity 267 *H </=34 ng/L B-Type Natriuretic Peptide 2779.12 0-100 pg/mL Sodium Level 133 L 136-145 mmol/L Potassium Level 4.4 3.5-5.1 mmol/L Chloride Level 96 L 98-107 mmol/L Carbon Dioxide Level 22 20-31 mmol/L Anion Gap 15 5-15 Blood Urea Nitrogen 42 H 9-23 mg/dL Creatinine 4.70 H 0.550-1.02 mg/dL Glomerular Filtration Rate Calc 10 >90 mL/min BUN/Creatinine Ratio 8.9 L 10.0-20.0 Serum Glucose 123 H 74-106 mg/dL Calcium Level 8.0 L 8.7-10.4 mg/dL Phosphorus Level 4.3 2.4-5.1 mg/dL Magnesium Level 2.1 1.6-2.6 mg/dL Total Bilirubin 0.5 0.2-1.0 mg/dL Aspartate Amino Transferase (AST) 13 13-40 U/L Alanine Aminotransferase (ALT) < 9 7-40 U/L Alkaline Phosphatase 147 H 46-116 U/L Ammonia 12 11-32 umol/L Total Protein 5.6 L 5.7-8.2 g/dL Albumin 3.8 3.2-4.8 g/dL Assessment Admitted for fluid overload in the setting of refractory ascites Shock cardiogenic versus septic End-stage renal disease on hemodialysis Heart failure with recent pericardial window due to recurrent pericardial effusions Refractory ascites due to cirrhosis with frequent paracentesis Diabetes Patient's stabilization started on pressors central line avoid hypotension midodrine p.o. Cardiology status post echo Workup and evaluation to rule out peritonitis We will hold off on hemodialysis today and await for patient's stability Electrolyte management medically Critically ill with guarded prognosis critical care time 33mins Plan discussed with: Patient MARLEY LARSEN MD Jan 09, 2025 13:58
[2025-01-09] MEDS: PANTOPRAZOLE 40 MG/10 ML VIAL INJ IV ONE (14:27)
[2025-01-09] MEDS: ALBUMIN 25% 100 ML IV ONE (14:28)
[2025-01-09] MEDS: PIPERACILLIN-TAZOB 2.25GM 50 ML IV SCH (14:34)
--- NOTE | 2025-01-09 14:37 | DVHPN2 ---
Subjective Patient denies any symptoms Reviewed: Care Plan, H&P, Labs, Medications Changes from previous H/P or p: No Changes General: Per HPI Objective Vitals Vital Signs Date Time Temp Pulse Resp B/P (MAP) Pulse Ox O2 Delivery O2 Flow Rate FiO2 01/09/25 08:00 79 01/09/25 08:00 11 100 Nasal Cannula* 2 28 01/09/25 06:36 73/26 01/09/25 05:23 98.0 98.0 Intake/Output Intake and Output 01/09/25 07:00 Intake Total 126.25 ml Balance 126.25 ml Intake IV Total 126.25 ml General Appearance: Alert, Oriented X3, Cooperative, No acute distress HEENT: Atraumatic, PERRLA, Other (Blind) Lungs: Clear to auscultation, Normal air movement Cardiovascular: Normal S1, Normal S2 Back: Flank Tenderness, Midline Tenderness Neuro: Normal gait, Normal speech Skin: Dry, Intact Psych/Mental Status: Mental status NL, Mood NL Medications Current Medications Medications Dose Ordered Sig/Honey Route Start Time Stop Time Status Last Admin Dose Admin Vancomycin HCl 0 ml @ 0 mls/hr UD IV 01/08/25 21:30 Diagnostic Test (Pha) 1 strip Q6HR 01/09/25 06:00 01/09/25 06:28 1 STRIP Insulin Human Regular Q6HR SC 01/09/25 06:00 Dextrose 50 ml UD PRN IV 01/09/25 00:30 Norepinephrine Bitartrate 250 ml @ 3.75 mls/hr Q24H IV 01/09/25 01:15 01/09/25 01:36 3.75 MLS/HR Pantoprazole Sodium 40 mg DAILY IV 01/10/25 10:00 Acetaminophen/ Hydrocodone Bitart 1 tab Q8HPRN PRN PO 01/09/25 10:30 01/09/25 11:52 1 TAB Ondansetron HCl 4 mg Q8HPRN PRN IV 01/09/25 10:30 Acetaminophen 650 mg Q6HP PRN PO 01/09/25 10:30 Piperacillin Sod/ Tazobactam Sod 50 ml @ 12.5 mls/hr Q8H IV 01/09/25 14:30 Laboratory Results Laboratory Tests 01/09/25 03:35 01/09/25 04:28 Chemistry Test 01/08/25 18:00 01/09/25 03:35 Albumin 3.8 g/dL (3.2-4.8) Calcium Level 8.0 mg/dL (8.7-10.4) L 8.5 mg/dL (8.7-10.4) L Magnesium Level 2.1 mg/dL (1.6-2.6) 2.2 mg/dL (1.6-2.6) Phosphorus Level 4.3 mg/dL (2.4-5.1) Total Protein 5.6 g/dL (5.7-8.2) L Coagulation Test 01/08/25 19:36 Prothrombin Time 14.5 sec (9.3-11.8) H Prothrombin Time INR 1.42 (0.9-1.15) H Cardiac Markers Test 01/08/25 19:36 B-Type Natriuretic Peptide 2779.12 pg/mL (0-100) LFT Test 01/08/25 18:00 Alanine Aminotransferase (ALT) < 9 U/L (7-40) Alkaline Phosphatase 147 U/L (46-116) H Aspartate Amino Transferase (AST) 13 U/L (13-40) Total Bilirubin 0.5 mg/dL (0.2-1.0) HgA1c, TSH Test 01/09/25 00:57 Hemoglobin A1c 6.8 % A1C (<5.7) H Thyroid Stimulating Hormone (TSH) 0.97 uIU/mL (0.55-4.78) Blood Gas Results Test 01/09/25 01:15 Arterial Blood pH 7.337 (7.350-7.450) FiO2 % 32.0 Labs and/or images reviewed: Labs reviewed by me, Image(s) reviewed by me Assessment/Plan Assessment/Plan Plan: -shock,? Cardiology etiology -cirrhosis with severe ascites -ESRD with hemodialysis -NSTEMI, probably type secondary to recent pericardial window procedure -legally blind -anemia of chronic disease - dyslipidemia -paroxysmal atrial fibrillation Plan: -central line placed by myself -continue norepinephrine to keep map greater than 65 mmHg -echocardiogram: Pending results -nephrology consultation: Discussed case with Dr. Vilchis -CT scan of subclavian artery to rule out stenosis -radiology consultation for paracentesis -repeat labs in a.m. -trial of IV Cardizem for rate control Critical care time spent with patient discussing and formulating plan of care: 40 minutes. This does not include time spent performing procedures. This medical document was created using an electronic medical record system with [employer] dictation system. Although this document has been carefully reviewed, there may still be some phonetic and typographical errors. These areas are purely typographical due to imperfections of the software programs, and do not reflect any compromise in the patient's medical care. Plan discussed with: Patient, Other (RN) My Orders Orders - PAVEL GUAMAN NP Procedure Category Date Status Time * Radiologist Consult CONS 01/09/25 Transmitted 14:29 Date of Service: Jan 09, 2025 Billing Provider: PAVEL GUAMAN NP Common Visit Codes: [id number] CARE 30-74 MIN PAVEL GUAMAN NP Jan 09, 2025 14:37
[2025-01-09] MEDS: dilTIAZem 25 MG/5 ML VIAL IV ONE (14:42)
--- NOTE | 2025-01-09 14:44 | DVHNC2 ---
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 Estimated blood loss5 mL Ultrasound CPT code: 87794 Date of Service: Jan 09, 2025 Billing Provider: PAVEL GUAMAN NP Common Visit Codes: PROCEDURE ONLY Procedure Codes: [id number] NON-TUNNEL CV CATH PAVEL GUAMAN NP Jan 09, 2025 14:44
[2025-01-09] MEDS: IOHEXOL 350 MG/ML 100ML IJ ONE (16:05)
[2025-01-09] MEDS: AMIODARONE 360mg/200mL PREMIX 200 ML IV ONE (17:00)
--- NOTE | 2025-01-09 18:49 | DVH ---
EXAM: CT Angiography Chest With Intravenous Contrast CLINICAL INDICATION: Rule out Right subclavian artery stenosis TECHNIQUE: Axial computed tomographic angiography images of the chest with intravenous contrast. Th is CT exam was performed using one or more of the following dose reduction techniques: automated exp osure control, adjustment of the mA and/or kV according to patient size, and/or use of iterative kenny nstruction technique. MIP reconstructed images were created and reviewed. CONTRAST: RADIATION DOSE: CTDIvol = 8.88 mGy, DLP = 499.92 mGy-cm COMPARISON: None FINDINGS: PULMONARY ARTERIES: Unremarkable. No PE. AORTA: No acute findings. No thoracic aortic aneurysm. OTHER ARTERIES: The subclavian arteries are not well opacified. Evaluation for subclavian stenosis is suboptimal. LUNGS AND PLEURAL SPACES: See findings above and below. HEART: Large pericardial effusion. Cardiomegaly. Scattered ground-glass attenuation with cardiome felicia concerning for pulmonary edema. Right pleural effusion. BONES/JOINTS: No acute fracture. No dislocation. SOFT TISSUES: Unremarkable. LYMPH NODES: Unremarkable. No enlarged lymph nodes. INTRAPERITONEAL SPACE: Ascites with suggestion of cirrhosis. OTHER FINDINGS: . IMPRESSION: 1. The subclavian arteries are not well opacified. Evaluation for subclavian stenosis is suboptimal. 2. Scattered ground-glass attenuation with cardiomegaly concerning for pulmonary edema. Right pleur al effusion.
[2025-01-09] MEDS: AMIODARONE 360mg/200mL PREMIX 200 ML IV SCH (22:15)
[2025-01-10] VITALS (88 sets, daily range): BP systolic 87–155; BP diastolic 14–65; PULSE 63–86; RESP 7–28; TEMP 97.3–98.5; O2SAT 72–100
[2025-01-10 05:46] LABS: Basophils # (auto) 0.3 10 ^3/uL (0-0.2); Basophils % (auto) 1.8 % (0.0-2.0); Eosinophils # (auto) 1.1 10 ^3/uL (0-0.8); Eosinophils % (auto) 7.4 % (0.0-7.0); Hematocrit 37.5 % (36.0-46.0); Hemoglobin 12.2 g/dL (12.2-16.2); Lymphocytes # (auto) 0.8 10 ^3/uL (0.4-5.4); Lymphocytes % (auto) 5.4 % (10.0-50.0); Mean Corpuscular Hemoglobin 32.5 pg (28.0-32.0); Mean Corpuscular Hgb Conc. 32.6 g/dL (32.0-36.0); Mean Corpuscular Volume 99.9 fL (80.0-100.0); Monocytes # (auto) 1.3 10 ^3/uL (0-1.3); Monocytes % (auto) 8.8 % (0.0-12.0); Neutrophils # (auto) 11.7 10 ^3/uL (1.6-8.6); Neutrophils % (auto) 76.6 % (37.0-80.0); Nucleated Red Blood Cells % 0.4 %; Platelet Count (auto) 112 10^3/uL (140-450); Red Blood Cells 3.75 10^6/uL (4.0-5.20); Red Cell Distribution Width 15.1 % (11.8-14.3); White Blood Cell 15.2 10^3/uL (4.4-10.8)
[2025-01-10 05:53] LABS: Anion Gap 15 (5-15); Carbon Dioxide 22 mmol/L (20-31); Potassium 4.6 mmol/L (3.5-5.1)
[2025-01-10 06:00] LABS: % Iron Saturation 17.5 % (15-50)
[2025-01-10 06:01] LABS: Phosphorus 5.1 mg/dL (2.4-5.1)
[2025-01-10 06:07] LABS: Blood Urea Nitrogen 52 mg/dL (9-23); Calcium 8.5 mg/dL (8.7-10.4); Chloride 94 mmol/L (98-107); Glucose 148 mg/dL (74-106); Sodium 131 mmol/L (136-145)
[2025-01-10] MEDS: SODIUM CHL 0.9% 1000 ML BAG XX ONE (07:00)
--- NOTE | 2025-01-10 09:07 | DVHPN2 ---
Subjective Patient denies any symptoms Reviewed: Care Plan, H&P, Labs, Medications Changes from previous H/P or p: No Changes General: Per HPI Objective Vitals Vital Signs Date Time Temp Pulse Resp B/P (MAP) Pulse Ox O2 Delivery O2 Flow Rate FiO2 01/10/25 07:00 67 12 116/32 (60) 91 01/10/25 06:00 Nasal Cannula* 2 28 01/10/25 04:00 97.3 97.3 Intake/Output Intake and Output 01/10/25 07:00 Intake Total 1258.66 ml Output Total 0 ml Balance 1258.66 ml Intake Oral 650 ml IV Total 608.66 ml Output Urine Total 0 ml Stool Total 0 ml General Appearance: Alert, Oriented X3, Cooperative, No acute distress HEENT: Atraumatic, PERRLA, Other (Blind) Lungs: Clear to auscultation, Normal air movement Cardiovascular: Normal S1, Normal S2 Back: Flank Tenderness, Midline Tenderness Neuro: Normal gait, Normal speech Skin: Dry, Intact Psych/Mental Status: Mental status NL, Mood NL Medications Current Medications Medications Dose Ordered Sig/Honey Route Start Time Stop Time Status Last Admin Dose Admin Vancomycin HCl 0 ml @ 0 mls/hr UD IV 01/08/25 21:30 Diagnostic Test (Pha) 1 strip Q6HR 01/09/25 06:00 01/10/25 06:58 1 STRIP Insulin Human Regular Q6HR SC 01/09/25 06:00 01/10/25 06:58 2 UNITS Dextrose 50 ml UD PRN IV 01/09/25 00:30 Norepinephrine Bitartrate 250 ml @ 3.75 mls/hr Q24H IV 01/09/25 01:15 01/09/25 20:43 11.25 MLS/HR Pantoprazole Sodium 40 mg DAILY IV 01/10/25 10:00 Acetaminophen/ Hydrocodone Bitart 1 tab Q8HPRN PRN PO 01/09/25 10:30 01/10/25 00:44 1 TAB Ondansetron HCl 4 mg Q8HPRN PRN IV 01/09/25 10:30 Acetaminophen 650 mg Q6HP PRN PO 01/09/25 10:30 Piperacillin Sod/ Tazobactam Sod 50 ml @ 12.5 mls/hr Q8H IV 01/09/25 14:30 01/10/25 06:37 12.5 MLS/HR Ferrous Sulfate 325 mg BIDWM PO 01/10/25 18:00 Albumin Human 100 ml @ 100 mls/hr Q1HR IV 01/10/25 09:00 01/10/25 10:59 Amiodarone HCl 200 mg DAILY PO 01/10/25 10:00 UNV Laboratory Results Laboratory Tests 01/10/25 05:19 Chemistry Test 01/10/25 05:19 Calcium Level 8.5 mg/dL (8.7-10.4) L Phosphorus Level 5.1 mg/dL (2.4-5.1) Microbiology Microbiology Date/Time Source Procedure Growth Status 01/09/25 05:00 Nose MRSA Screen - Final Complete 01/08/25 19:46 Blood Blood Culture - Preliminary NO GROWTH AFTER 24 HOURS OF INCUBATION. Resulted Labs and/or images reviewed: Labs reviewed by me, Image(s) reviewed by me Assessment/Plan Assessment/Plan Plan: -shock,? Cardiology etiology -cirrhosis with severe ascites -ESRD with hemodialysis -NSTEMI, probably type secondary to recent pericardiocentesis -legally blind -anemia of chronic disease - dyslipidemia -paroxysmal atrial fibrillation Plan: Events: Patient was placed on amiodarone drip. Patient now in sinus rhythm. We will stop amiodarone drip and switch to p.o. -paracentesis pending -continue norepinephrine to keep map greater than 65 mmHg. Currently on 6 micrograms/minute -echocardiogram: Pending results -nephrology consultation: Discussed case with Dr. Vilchis -CT scan of subclavian artery: Study noncontributory -radiology consultation for paracentesis -repeat labs in a.m. Critical care time spent with patient discussing and formulating plan of care: 40 minutes. This does not include time spent performing procedures. This medical document was created using an electronic medical record system with [employer] dictation system. Although this document has been carefully reviewed, there may still be some phonetic and typographical errors. These areas are purely typographical due to imperfections of the software programs, and do not reflect any compromise in the patient's medical care. Plan discussed with: Patient, Other (RN) My Orders Orders - PAVEL GUAMAN NP Procedure Category Date Status Time * Radiologist Consult CONS 01/09/25 Transmitted 14:[address] 01/09/25 Resulted Contrast 14:37 Respiratory Culture ANAMARIA 01/09/25 In Process W/ Gs 20:35 Paracentesis US 01/10/25 Logged 08:06 Ferrous Sulfate Tablet PHA 01/10/25 In Process 18:00 Basic Metabolic Panel LAB 01/11/25 Verified 04:00 Chest Portable XY 01/11/25 Logged 04:00 Complete Blood Count LAB 01/11/25 Verified 05:00 Complete Blood Count LAB 01/12/25 Verified 05:00 Complete Blood Count LAB 01/13/25 Verified 05:00 Amiodarone Tablet PHA 01/10/25 Logged (Cordarone Tablet) 10:00 Date of Service: Jan 10, 2025 Billing Provider: PAVEL GUAMAN NP Common Visit Codes: [id number] CARE 30-74 MIN PAVEL GUAMAN NP Jan 10, 2025 09:07
[2025-01-10] MEDS: ALBUMIN 25% 100 ML IV SCH (10:00)
[2025-01-10] MEDS: PANTOPRAZOLE 40 MG/10 ML VIAL INJ IV SCH (10:56)
[2025-01-10] MEDS: AMIODARONE HCL 200 MG TAB PO SCH (10:56)
[2025-01-10] MEDS: PHENTOLAMINE MESYLATE 5 MG INJ VIAL SUBCUT ONE (12:00)
--- NOTE | 2025-01-10 12:16 | DVH ---
US PARACENTESIS, HISTORY: ASCITES PROCEDURE: Informed consent was obtained. The patient was placed in supine position. A limited locali zation ultrasound of the abdomen was obtained, and the skin site over the largest pocket of fluid was marked and entry site was prepped with chlorhexidine which was allowed to dry and draped in the usua l sterile fashion. Time out was performed. Following administration of 1% lidocaine local anesthetic, a 5 Haitian centesis needle catheter was percutaneously inserted into the peritoneal collection until fluid was aspirated. The catheter was advanced into the fluid collection and the needle removed. [place]bo [place] 5650 cc of fluid was aspirated and specimen sent for appropriate cultures/cytology/cultures and cy tology. The catheter was then removed and a sterile dressing applied. No immediate complication was i dentified. FINDINGS: Limited ultrasound imaging demonstrates moderate ascites. Aspirated fluid was clear and ser ous. IMPRESSION: US-guided paracentesis with 5.7L removed.
--- NOTE | 2025-01-10 13:40 | DVHPN2 ---
Progress Note Date Seen: Jan 10, 2025 Medical Necessity Reason Pt with a Central, PICC or Fol: Yes The following are medically ne: Central Line Subjective Patient reports: Feels better Objective vital signs Vital Sign Date Time Temp Pulse Resp B/P (MAP) Pulse Ox O2 Delivery O2 Flow Rate FiO2 01/10/25 12:00 10 90 Nasal Cannula* 6 44 01/10/25 12:00 72 01/10/25 12:00 145/40 01/10/25 04:00 97.3 97.3 Total Intake and Output 01/09/25 01/09/25 01/10/25 15:00 23:00 07:00 Intake Total 90.00 ml 673.29 ml 523.28 ml Output Total 0 ml 0 ml Balance 90.00 ml 673.29 ml 523.28 ml medications Current Medications Medications Dose Ordered Sig/Honey Route Start Time Stop Time Status Last Admin Dose Admin Vancomycin HCl 0 ml @ 0 mls/hr UD IV 01/08/25 21:30 Diagnostic Test (Pha) 1 strip Q6HR 01/09/25 06:00 01/10/25 12:00 1 STRIP Insulin Human Regular Q6HR SC 01/09/25 06:00 01/10/25 06:58 2 UNITS Dextrose 50 ml UD PRN IV 01/09/25 00:30 Norepinephrine Bitartrate 250 ml @ 3.75 mls/hr Q24H IV 01/09/25 01:15 01/09/25 20:43 11.25 MLS/HR Pantoprazole Sodium 40 mg DAILY IV 01/10/25 10:00 01/10/25 10:56 40 MG Acetaminophen/ Hydrocodone Bitart 1 tab Q8HPRN PRN PO 01/09/25 10:30 01/10/25 13:15 1 TAB Ondansetron HCl 4 mg Q8HPRN PRN IV 01/09/25 10:30 Acetaminophen 650 mg Q6HP PRN PO 01/09/25 10:30 Piperacillin Sod/ Tazobactam Sod 50 ml @ 12.5 mls/hr Q8H IV 01/09/25 14:30 01/10/25 06:37 12.5 MLS/HR Ferrous Sulfate 325 mg BIDWM PO 01/10/25 18:00 Amiodarone HCl 200 mg DAILY PO 01/10/25 10:00 01/10/25 10:56 200 MG Examination: GENERAL:Abnormal, ABDOMEN:Abnormal, SKIN:Abnormal laboratory and microbiology Laboratory Tests 01/10/25 05:19 Test 01/10/25 05:19 Range/Units Serum Glucose 148 H 74-106 mg/dL Microbiology Date/Time Source Procedure Growth Status 01/09/25 14:00 Sputum Gram Stain Pending Resulted 01/09/25 14:00 Sputum Respiratory Culture - Preliminary Resulted 01/09/25 05:00 Nose MRSA Screen - Final Complete 01/08/25 19:46 Blood Blood Culture - Preliminary NO GROWTH AFTER 24 HOURS OF INCUBATION. Resulted Problem List/Assessment/Plan Problem List/Assessment/Plan Admitted for fluid overload in the setting of refractory ascites Shock cardiogenic versus septic End-stage renal disease on hemodialysis Heart failure with recent pericardial window due to recurrent pericardial effusions Refractory ascites due to cirrhosis with frequent paracentesis Diabetes HD today while on Levophed midodrine po Cardiology status post echo results pending s/p paracentesis 01/10/25 extra albumin today levophed renal diet cardiology Plan discussed with: Patient My Orders My Orders Orders - MARLEY LARSEN MD Procedure Category Date Status Time Hemodialysis Orders ORDERS 01/10/25 Transmitted 07:00 Dialysis Nursing REGINALD 01/10/25 In Process Message 07:00 Document Fluid Input REGINALD 01/10/25 In Process And Outpu 07:00 Acute Hepatitis Panel LAB 01/10/25 In Process 07:00 Epoetin Hola-Epbx PHA 01/10/25 In Process (Retacrit) 21:00 Albumin Ivpb PHA 01/10/25 Transmitted 13:45 MARLEY LARSEN MD Jan 10, 2025 13:40
[2025-01-10] MEDS: ALBUMIN 25% 100 ML IV ONE (14:13)
[2025-01-10 14:31] LABS: Body Fluid Red Blood Cells 446 CUMM (0-2000); Body Fluid White Blood Cells 218 CUMM (0-200)
[2025-01-10] MEDS: FERROUS SULFATE 325mg EC TAB PO SCH (17:57)
[2025-01-10] MEDS: SEVELAMER 800 MG TAB PO SCH (17:57)
[2025-01-10] MEDS: EPOETIN ALFA-EPBX 10,000 UNIT/1ML VIAL SC ONE (21:18)
[2025-01-11] VITALS (95 sets, daily range): BP systolic 74–148; BP diastolic 10–80; PULSE 9–111; RESP 7–27; TEMP 97.9–98.2; O2SAT 77–100
[2025-01-11] MEDS: ACETAMINOPHEN 325 MG TAB PO PRN (00:19)
[2025-01-11 05:24] LABS: Basophils # (auto) 0 10 ^3/uL (0-0.2); Basophils % (auto) 0.2 % (0.0-2.0); Eosinophils # (auto) 1.1 10 ^3/uL (0-0.8); Eosinophils % (auto) 9.1 % (0.0-7.0); Hematocrit 34.5 % (36.0-46.0); Hemoglobin 11.2 g/dL (12.2-16.2); Lymphocytes # (auto) 0.8 10 ^3/uL (0.4-5.4); Lymphocytes % (auto) 6.5 % (10.0-50.0); Mean Corpuscular Hemoglobin 32.4 pg (28.0-32.0); Mean Corpuscular Hgb Conc. 32.4 g/dL (32.0-36.0); Mean Corpuscular Volume 99.9 fL (80.0-100.0); Monocytes # (auto) 1.3 10 ^3/uL (0-1.3); Monocytes % (auto) 10.3 % (0.0-12.0); Neutrophils # (auto) 9.2 10 ^3/uL (1.6-8.6); Neutrophils % (auto) 73.9 % (37.0-80.0); Nucleated Red Blood Cells % 0.2 %; Platelet Count (auto) 95 10^3/uL (140-450); Red Blood Cells 3.45 10^6/uL (4.0-5.20); Red Cell Distribution Width 15.9 % (11.8-14.3); White Blood Cell 12.4 10^3/uL (4.4-10.8)
[2025-01-11 05:26] LABS: Chloride 101 mmol/L (98-107); Potassium 4.2 mmol/L (3.5-5.1)
[2025-01-11 05:27] LABS: Anion Gap 13 (5-15); Carbon Dioxide 20 mmol/L (20-31); Sodium 134 mmol/L (136-145)
[2025-01-11 05:28] LABS: Calcium 8.5 mg/dL (8.7-10.4)
[2025-01-11 05:32] LABS: BUN/Creatinine Ratio 7.6 (10.0-20.0); Blood Urea Nitrogen 32 mg/dL (9-23); Glucose 137 mg/dL (74-106)
--- NOTE | 2025-01-11 06:21 | DVH ---
EXAM: XR Chest, 1 View CLINICAL INDICATION: chf TECHNIQUE: Frontal view of the chest. COMPARISON: XY CHEST PORTABLE on DOS: 01/08/25, XY CHEST XRAY 1 VIEW on DOS: 12/03/24, CXRP on DOS: 1 11/17/21, CHEST PORTABLE on DOS: 09/16/22, CXRP on DOS: 01/25/22 FINDINGS: LUNGS AND PLEURAL SPACES: See below. HEART: Cardiomegaly with pulmonary congestion and edema. Superimposed pneumonia cannot be excluded. MEDIASTINUM: Unremarkable. Normal mediastinal contour. BONES/JOINTS: Unremarkable. No acute fracture. OTHER FINDINGS: . . . IMPRESSION: Cardiomegaly with pulmonary congestion and edema. Superimposed pneumonia cannot be excluded.
--- NOTE | 2025-01-11 09:32 | DVHPN2 ---
Subjective Patient denies any symptoms Reviewed: Care Plan, H&P, Labs, Medications Changes from previous H/P or p: No Changes General: Per HPI Objective Vitals Vital Signs Date Time Temp Pulse Resp B/P (MAP) Pulse Ox O2 Delivery O2 Flow Rate FiO2 01/11/25 08:30 70 9 118/37 (64) 97 01/11/25 08:01 97.9 97.9 01/11/25 08:00 Nasal Cannula* 2 28 Intake/Output Intake and Output 01/11/25 07:00 Intake Total 1314.98 ml Output Total 5650 ml Balance -4335.02 ml Intake Oral 640 ml IV Total 674.98 ml Stool Total 0 ml Drainage Total 5650 ml General Appearance: Alert, Oriented X3, Cooperative, No acute distress HEENT: Atraumatic, PERRLA, Other (Blind) Lungs: Clear to auscultation, Normal air movement Cardiovascular: Normal S1, Normal S2 Back: Flank Tenderness, Midline Tenderness Neuro: Normal gait, Normal speech, Cranial nerves 3-12 NL Skin: Dry, Intact Psych/Mental Status: Mental status NL, Mood NL Medications Current Medications Medications Dose Ordered Sig/Honey Route Start Time Stop Time Status Last Admin Dose Admin Vancomycin HCl 0 ml @ 0 mls/hr UD IV 01/08/25 21:30 Diagnostic Test (Pha) 1 strip Q6HR 01/09/25 06:00 01/11/25 05:52 1 STRIP Insulin Human Regular Q6HR SC 01/09/25 06:00 01/11/25 06:04 2 UNITS Dextrose 50 ml UD PRN IV 01/09/25 00:30 Norepinephrine Bitartrate 250 ml @ 3.75 mls/hr Q24H IV 01/09/25 01:15 01/11/25 06:38 18.75 MLS/HR Pantoprazole Sodium 40 mg DAILY IV 01/10/25 10:00 01/10/25 10:56 40 MG Acetaminophen/ Hydrocodone Bitart 1 tab Q8HPRN PRN PO 01/09/25 10:30 01/10/25 13:15 1 TAB Ondansetron HCl 4 mg Q8HPRN PRN IV 01/09/25 10:30 Acetaminophen 650 mg Q6HP PRN PO 01/09/25 10:30 01/11/25 00:19 650 MG Piperacillin Sod/ Tazobactam Sod 50 ml @ 12.5 mls/hr Q8H IV 01/09/25 14:30 01/11/25 06:01 12.5 MLS/HR Ferrous Sulfate 325 mg BIDWM PO 01/10/25 18:00 01/10/25 17:57 325 MG Amiodarone HCl 200 mg DAILY PO 01/10/25 10:00 01/10/25 10:56 200 MG Sevelamer HCl 800 mg TIDWM PO 01/10/25 18:00 01/10/25 17:57 800 MG Laboratory Results Laboratory Tests 01/11/25 04:36 Chemistry Test 01/11/25 04:36 Calcium Level 8.5 mg/dL (8.7-10.4) L Microbiology Microbiology Date/Time Source Procedure Growth Status 01/10/25 15:18 Blood Blood Culture - Preliminary Resulted 01/09/25 14:00 Sputum Gram Stain - Final Resulted 01/09/25 14:00 Sputum Respiratory Culture - Preliminary Resulted 01/09/25 05:00 Nose MRSA Screen - Final Complete Labs and/or images reviewed: Labs reviewed by me, Image(s) reviewed by me Assessment/Plan Assessment/Plan Plan: -septic shock -cirrhosis with severe ascites -ESRD with hemodialysis -NSTEMI, probably type secondary to recent pericardiocentesis -legally blind -anemia of chronic disease - dyslipidemia -paroxysmal atrial fibrillation -possible infiltration of norepinephrine to right upper extremity with extravasation Plan: Events: Paracentesis performed yesterday. The peritoneal fluid with increase white blood cell count. Patient received HD yesterday. Continues to be on norepinephrine at 10 micrograms/minute. Regitine given for questionable extravasation of norepinephrine infusion to right upper extremity yesterday. -patient was on adequate coverage with Zosyn and vancomycin -continue vasopressor therapy -ultrasound of right upper extremity -pain management: Add gabapentin. -echocardiogram: Results reviewed -nephrology consultation: Recommendations appreciated -CT scan of subclavian artery: Study noncontributory -radiology consultation for paracentesis -repeat labs in a.m. Critical care time spent with patient discussing and formulating plan of care: 40 minutes. This does not include time spent performing procedures. This medical document was created using an electronic medical record system with [employer] dictation system. Although this document has been carefully reviewed, there may still be some phonetic and typographical errors. These areas are purely typographical due to imperfections of the software programs, and do not reflect any compromise in the patient's medical care. 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
[2025-01-11 11:39] LABS: Hepatitis A Ab IgM Negative; Hepatitis B Core IgM Negative (Negative); Hepatitis B Surface Antigen Negative (Negative); Hepatitis C Antibody Negative (Negative)
--- NOTE | 2025-01-11 11:43 | DVH ---
Upper extremity Procedure: US Rt Upper Ext Art Duplex Exam Date: 01/11/2025 09:53 AM History: Pain Comparison Study: None available at time of dictation. Findings: Duplex Doppler interrogation of the upper extremity arteries was performed including color Doppler an d spectral/pulsed waveform analysis. RIGHT: Peak systolic velocities in the arteries are as follows: Velocities within normal limits. Monophasic waveforms distal radial artery. IMPRESSION: Velocities within normal limits. Monophasic waveforms distal radial artery. END IMPRESSION:
[2025-01-11] MEDS: GABAPENTIN 100 MG CAP PO SCH (14:18)
[2025-01-12] VITALS (97 sets, daily range): BP systolic 90–151; BP diastolic 10–101; PULSE 72–131; RESP 7–18; TEMP 97.5–98.4; O2SAT 63–100
[2025-01-12 05:06] LABS: Basophils # (auto) 0 10 ^3/uL (0-0.2); Basophils % (auto) 0.3 % (0.0-2.0); Eosinophils # (auto) 1.1 10 ^3/uL (0-0.8); Hematocrit 35.2 % (36.0-46.0); Hemoglobin 11.6 g/dL (12.2-16.2); Lymphocytes # (auto) 0.9 10 ^3/uL (0.4-5.4); Lymphocytes % (auto) 6.8 % (10.0-50.0); Mean Corpuscular Hemoglobin 32.6 pg (28.0-32.0); Monocytes # (auto) 1.5 10 ^3/uL (0-1.3); Monocytes % (auto) 12.1 % (0.0-12.0); Neutrophils # (auto) 9.1 10 ^3/uL (1.6-8.6); Neutrophils % (auto) 71.8 % (37.0-80.0); Nucleated Red Blood Cells % 0.1 %; Platelet Count (auto) 105 10^3/uL (140-450); Red Blood Cells 3.55 10^6/uL (4.0-5.20); Red Cell Distribution Width 15.6 % (11.8-14.3); White Blood Cell 12.7 10^3/uL (4.4-10.8)
[2025-01-12 05:25] LABS: BUN/Creatinine Ratio 8.1 (10.0-20.0)
[2025-01-12 05:31] LABS: Blood Urea Nitrogen 39 mg/dL (9-23); Calcium 8.4 mg/dL (8.7-10.4); Carbon Dioxide 18 mmol/L (20-31); Glucose 194 mg/dL (74-106)
[2025-01-12 05:43] LABS: Anion Gap 14 (5-15); Chloride 99 mmol/L (98-107)
[2025-01-12 05:44] LABS: Potassium 5.1 mmol/L (3.5-5.1); Sodium 131 mmol/L (136-145)
--- NOTE | 2025-01-12 12:16 | DVHPN2 ---
Progress Note - Dictate Date Seen: Jan 12, 2025 Medical Necessity Reason Pt with a Central, PICC or Fol: Yes The following are medically ne: Central Line Subjective Awake and alert. Denies shortness of breath. vital signs Vital Sign Date Time Temp Pulse Resp B/P (MAP) Pulse Ox O2 Delivery O2 Flow Rate FiO2 01/12/25 12:00 15 95 Nasal Cannula* 2 28 01/12/25 12:00 98.2 75 114/30 (58) 98.2 Total Intake and Output 01/11/25 01/11/25 01/12/25 15:00 23:00 07:00 Intake Total 196.25 ml 420.0 ml 392.5 ml Output Total 0 ml Balance 196.25 ml 420.0 ml 392.5 ml medications Current Medications Medications Dose Ordered Sig/Honey Route Start Time Stop Time Status Last Admin Dose Admin Vancomycin HCl 0 ml @ 0 mls/hr UD IV 01/08/25 21:30 Diagnostic Test (Pha) 1 strip Q6HR 01/09/25 06:00 01/12/25 05:58 1 STRIP Insulin Human Regular Q6HR SC 01/09/25 06:00 01/12/25 05:58 3 UNITS Dextrose 50 ml UD PRN IV 01/09/25 00:30 Norepinephrine Bitartrate 250 ml @ 3.75 mls/hr Q24H IV 01/09/25 01:15 01/12/25 10:07 15 MLS/HR Pantoprazole Sodium 40 mg DAILY IV 01/10/25 10:00 01/12/25 08:00 40 MG Acetaminophen/ Hydrocodone Bitart 1 tab Q8HPRN PRN PO 01/09/25 10:30 01/11/25 18:38 1 TAB Ondansetron HCl 4 mg Q8HPRN PRN IV 01/09/25 10:30 Acetaminophen 650 mg Q6HP PRN PO 01/09/25 10:30 01/11/25 00:19 650 MG Piperacillin Sod/ Tazobactam Sod 50 ml @ 12.5 mls/hr Q8H IV 01/09/25 14:30 01/12/25 05:58 12.5 MLS/HR Ferrous Sulfate 325 mg BIDWM PO 01/10/25 18:00 01/12/25 08:00 325 MG Amiodarone HCl 200 mg DAILY PO 01/10/25 10:00 01/12/25 08:01 200 MG Sevelamer HCl 800 mg TIDWM PO 01/10/25 18:00 01/12/25 08:00 800 MG Gabapentin 100 mg TID PO 01/11/25 14:00 01/12/25 05:58 100 MG Norepinephrine Bitartrate 32 mg/ Sodium Chloride 250 ml @ 0.938 mls/ hr Q24H IV 01/12/25 12:00 UNV objective Gen: nad, pale heent: nc/at, mmm lungs: cta anteriorly cvs: no rub abd: Soft, fluid wave appreciated skin: no rash neuro: alert and oriented laboratory and microbiology Laboratory Tests 01/12/25 04:36 Test 01/12/25 04:36 Range/Units Serum Glucose 194 H 74-106 mg/dL Assessment/Plan End-stage renal disease on hemodialysis Heart failure with recent pericardial window due to recurrent pericardial effusions Refractory ascites due to cirrhosis with frequent paracentesis Diabetes Dialysis today UF as hemodynamics permit Discussed plan of care with Catalina and primary RN Plan discussed with: Patient KAVIN COLEMAN MD Jan 12, 2025 12:16
--- NOTE | 2025-01-12 12:21 | DVHPN2 ---
Reviewed: Care Plan, H&P, Labs, Medications Changes from previous H/P or p: No Changes General: Per HPI Objective Vitals Vital Signs Date Time Temp Pulse Resp B/P (MAP) Pulse Ox O2 Delivery O2 Flow Rate FiO2 01/12/25 12:00 15 95 Nasal Cannula* 2 28 01/12/25 12:00 98.2 75 114/30 (58) 98.2 Intake/Output Intake and Output 01/12/25 07:00 Intake Total 1008.75 ml Output Total 0 ml Balance 1008.75 ml Intake Oral 490 ml IV Total 518.75 ml Stool Total 0 ml General Appearance: Alert, Oriented X3, Cooperative, No acute distress HEENT: Atraumatic, PERRLA, Other (Blind) Lungs: Clear to auscultation, Normal air movement Cardiovascular: Normal S1, Normal S2 Back: Flank Tenderness, Midline Tenderness Neuro: Normal gait, Normal speech, Cranial nerves 3-12 NL Skin: Dry, Intact Psych/Mental Status: Mental status NL, Mood NL Medications Current Medications Medications Dose Ordered Sig/Honey Route Start Time Stop Time Status Last Admin Dose Admin Vancomycin HCl 0 ml @ 0 mls/hr UD IV 01/08/25 21:30 Diagnostic Test (Pha) 1 strip Q6HR 01/09/25 06:00 01/12/25 12:15 1 STRIP Insulin Human Regular Q6HR SC 01/09/25 06:00 01/12/25 05:58 3 UNITS Dextrose 50 ml UD PRN IV 01/09/25 00:30 Pantoprazole Sodium 40 mg DAILY IV 01/10/25 10:00 01/12/25 08:00 40 MG Acetaminophen/ Hydrocodone Bitart 1 tab Q8HPRN PRN PO 01/09/25 10:30 01/11/25 18:38 1 TAB Ondansetron HCl 4 mg Q8HPRN PRN IV 01/09/25 10:30 Acetaminophen 650 mg Q6HP PRN PO 01/09/25 10:30 01/11/25 00:19 650 MG Piperacillin Sod/ Tazobactam Sod 50 ml @ 12.5 mls/hr Q8H IV 01/09/25 14:30 01/12/25 05:58 12.5 MLS/HR Ferrous Sulfate 325 mg BIDWM PO 01/10/25 18:00 01/12/25 08:00 325 MG Amiodarone HCl 200 mg DAILY PO 01/10/25 10:00 01/12/25 08:01 200 MG Sevelamer HCl 800 mg TIDWM PO 01/10/25 18:00 01/12/25 08:00 800 MG Gabapentin 100 mg TID PO 01/11/25 14:00 01/12/25 05:58 100 MG Norepinephrine Bitartrate 32 mg/ Sodium Chloride 250 ml @ 0.938 mls/ hr Q24H IV 01/12/25 12:00 Laboratory Results Laboratory Tests 01/12/25 04:36 Chemistry Test 01/12/25 04:36 Calcium Level 8.4 mg/dL (8.7-10.4) L Microbiology Microbiology Date/Time Source Procedure Growth Status 01/10/25 15:18 Blood Blood Culture - Preliminary Resulted 01/10/25 12:45 Ascities Fluid Gram Stain - Final Resulted 01/10/25 12:45 Ascities Fluid Body Fluid Culture - Preliminary Resulted 01/09/25 14:00 Sputum Gram Stain - Final Resulted 01/09/25 14:00 Sputum Respiratory Culture - Preliminary Resulted 01/09/25 05:00 Nose MRSA Screen - Final Complete Labs and/or images reviewed: Labs reviewed by me, Image(s) reviewed by me Assessment/Plan Assessment/Plan Impression: Multiple acute/subacute strokes Left lower extremity cellulitis Rule out left septic knee Hypokalemia Acute kidney injury likely hemodynamically mediated due to vasomotor nephropathy Chronic kidney disease Peripheral vascular disease status post right [id number] amputation 6 months ago Poorly controlled type 2 diabetes Sepsis Hypertension Mixed hyperlipidemia Polysubstance use disorder Diabetic neuropathy -? Suicidal ideation -septic bursitis with Staphylococcus aureus -septic shock Plan: -events: H&H stable. Minimal gastric secretions. Patient became hypothermic -start tube feeding with Nepro -continue vasopressor therapy to keep map greater than 65 mmHg -bronchodilators -antibiotics: Continue Rocephin and clindamycin, add Florastor -potassium replacement -continue PPI Total time spent with patient discussing and formulating plan of care: 35 minutes. Plan discussed with: Patient Date of Service: Jan 12, 2025 Billing Provider: KARTIK LOPEZ DO Common Visit Codes: [id number] INP/OBS CARE(HIGH) KARTIK LOPEZ DO Jan 12, 2025 12:21
[2025-01-12] MEDS: SODIUM CHL 0.9% 1000 ML BAG XX ONE (12:30)
[2025-01-12] MEDS: NOREPINEPHRINE BITARTRATE 32 MG in SODIUM CHL 0.9% 218 ML IV SCH (13:28)
[2025-01-12] MEDS: LABETALOL HCL 20 MG/4 ML VL IV ONE ×2 (17:18)
[2025-01-12] MEDS: MIDODRINE HCL 10 MG TAB PO SCH (17:51)
[2025-01-12] MEDS: PIPERACILLIN-TAZOB 3.375GM 100 ML IV SCH (22:07)
--- NOTE | 2025-01-12 22:13 | DVHSR ---
APPROVED REPORT EXAM: LIMITED Two-dimensional and M-mode echocardiogram to check for Effusion only. Blood Pressure: 73/26 mmHg INDICATION Pericardial effusion RISK FACTORS Height: 66, Weight: 139 DIMENSIONS LVDd2.8 (3.8-5.7cm)LA (2D) (1.9-4.0cm)Aortic Root (2.0-3.7cm) LVDs1.8 (2.5-4.0cm)LA (MM) (1.9-4.0cm)Aortic Cusp Exc (1.5-2.0cm) EF (%) 68.0 (55-70%)Rt. Atrium (1.9-4.0cm)Asc. Aorta cm Mitral Valve MitralMitral Stenosis E/A ratio0.02D MVAcm2 Other Information Technically limited study due to effusion check only. Conclusion ABOUT 2 CM POSTERIOR PERICARDIA L EFFUSION NO EVIDENCE OF PERICARDIAL [place] MODERATELY DILATED RV AND RA RV IS HYPOKINETIC RV FAILURE DUE TO DILATATION AND HYPOKINESIS NORMAL LV EF IS 65% NORMAL VALVES SUGGESTION REPEAT ECHO FOR PERICARDIAL EFFUSION NEEDED AND INDICATED
--- NOTE | 2025-01-12 22:40 | DVHINCON2 ---
Date of service: Jan 12, 2025 Referring Physician Emanuel Moreland NP Reason for Consultation Acute hypoxic respiratory failure History of Present Illness A 59-year-old woman who is legally blind because of diabetic nephropathy, has past medical history of end-stage renal disease on dialysis, anemia of chronic disease, CHF, diabetes, hypertension, liver cirrhosis, ascites, gout and hyperlipidemia who presented to ED on 01/08/25 with complaint of altered level of consciousness and confusion. Patient was recently admitted at [facility] for around 12 days because she missed her dialysis. While there she received dialysis and was found to have ascites, had paracentesis done and was told that she has" water around the heart and the lungs." History was obtained from daughter through phone. Patient is alert and oriented x1, confused in ED. Daughter mentioned patient stating that she can see colors but patient is legally blind. She was admitted for further care and pulmonary consultation is requested for evaluation and management of acute hypoxic respiratory failure. Review of Systems: 14-point review of systems negative unless otherwise noted above. Past Medical History: Diabetic nephropathy, ESRD on dialysis M-W-F, anemia of chronic disease, CHF, diabetes, hypertension, liver cirrhosis, ascites, gout and hyperlipidemia Past Surgical History: Multiple paracenteses in the past Medications: Reviewed. Allergies: No known drug allergies. Family History: DM, HTN, heart disease. Social History: Nonsmoker. No alcohol or illicit drug use. Family History: Diabetes mellitus G8 MOTHER, Onset:50's - 60 Family history: Cardiovascular disease G8 MOTHER (PALPITATIONS) Family history: Diabetes mellitus G8 MOTHER G8 FATHER G8 BROTHER G8 BROTHER Family history: Hypertension G8 MOTHER G8 FATHER Hypertension G8 MOTHER, Onset:40's - 50 Allergies: Coded Allergies: No Known Drug Allergy (Unverified Allergy, Unknown, 11/20/24) Home Meds Reported Medications Insulin Isophane & Reg (Human) (Humulin 70/30 (70-30) 100 Unit/ml) 1 Units/0.01 Ml Inj, 5 UNITS SC BID for 31 Days, #10 12/04/24 Gabapentin (Gabapentin) 100 Mg Cap, 1 CAP PO TID for 90 Days, #270 12/04/24 Docusate Sodium (Colace) 100 Mg Cap, 1 CAP PO BID for 30 Days, #60 12/04/24 Amiodarone Hcl (Amiodarone Hcl) 200 Mg Tab, 1 TAB PO DAILY for 90 Days, #90 12/04/24 Dorzolamide-Timolol (Dorzolamide Hcl/Timolol M) 1 Ml Raya, 1 DROP EACHEYE BID for 50 Days, #10 12/04/24 Midodrine HCl (Midodrine Hydrochloride) 10 Mg Tab, 1 TAB PO TID for 90 Days, #270 12/04/24 Cetirizine Hcl (Cetirizine Hcl) 5 Mg Tab, 1 TAB DAILY 09/05/22 Pantoprazole Sodium Sesquihydr (Pantoprazole Sodium Dr) 40 Mg Tab, 1 TAB DAILY 09/05/22 Diltiazem Hcl (DILTIAZEM HCL ER) 240 Mg Cap, 1 CAP PO DAILY 09/05/22 Hydrocodone-Acetaminophen (Hydrocodone Bitartrate/AC 5-325 mg) 1 Tab Tab, 1 TAB PO TID for PAIN, TAB 11/04/21 Tramadol Hcl (Tramadol Hcl) 50 Mg Tab, 50 MG PO Q6HPRN PRN for PAIN SCALE 7 THRU 10, MG 11/04/21 Ferrous Sulfate (Ferrous Sulfate) 325 Mg Tab, 325 MG PO DAILY for IRON DEFICIENCY, MG 11/04/21 Apixaban Base (ELIQUIS) 2.5 Mg Tab, 2.5 MG PO DAILY for ARRHYTHMIA for 60 Days, #60 07/24/21 Trazodone HCl (Trazodone Hydrocloride) 100 Mg Tab, 1 TAB PO DAILY for DEPRESSION for 90 Days, #90 07/24/21 Hydroxyzine Hcl (Hydroxyzine Hcl) 25 Mg Tab, 25 MG PO BID for ANXIETY for 90 Days, #180 06/04/21 Acetaminophen W/ Codeine (Tylenol W/Cod #3) 1 Tab Tb, 1 TAB PO Q6HP for PAIN 06/04/21 [place]-3 Fatty Acids ([place] Oil) 1,000 Mg Cap, 1000 MG PO DAILY for SUPPLEMENT 06/04/21 Carvedilol (Coreg) 6.25 Mg Tab, 6.25 MG PO BID for HYPERTENSION 01/14/21 Amitriptyline HCl (Amitriptyline Hydrochlori) 75 Mg Tab, 75 MG PO HS for ANXIETY, TAB 01/14/21 Hydralazine HCl (Hydralazine HCl) 25 Mg Tab, 25 MG PO Q8HPRN for HYPERTENSION, TAB 01/14/21 Atorvastatin Calcium (Lipitor) 20 Mg Tab, 20 MG PO DAILY for HYPERLILIDEMIA for 90 Days, #90 01/14/21 Furosemide (Furosemide) 80 Mg Tab, 80 MG PO DAILY for EDEMA 01/27/18 Sevelamer Carbonate (Renvela) 800 Mg Tab, 2 TAB PO TIDWM for 90 Days, #540 01/27/18 Current Medications Current Medications Medications (Trade) Dose Ordered Sig/Honey Route PRN Reason Start Time Stop Time Status Last Admin Norepinephrine Bitartrate 32 mg/ Sodium Chloride 250 ml @ 0.938 mls/ hr Q24H IV 01/12/25 12:00 01/12/25 13:28 Midodrine (Proamatine Tablet) 5 mg TID@0600,1200,1800 PO 01/12/25 18:00 01/12/25 17:51 Piperacillin Sod/ Tazobactam Sod 100 ml @ 25 mls/hr Q12HR IV 01/12/25 22:00 01/12/25 22:07 Vital Signs Vital Signs Date Time Temp Pulse Resp B/P (MAP) Pulse Ox O2 Delivery O2 Flow Rate FiO2 01/12/25 20:00 98.4 76 11 111/31 (57) 98 98.4 01/12/25 18:00 Nasal Cannula* 2 28 Physical Exam Gen.: Patient lying in bed in no apparent distress. On supplemental oxygen. Head: Normocephalic, atraumatic. Eyes: EOMI/PERRLA. Ears: Normal hearing. Normal anatomy. Neck/trachea: Trachea midline, supple. Nose: Normal external anatomy. Mouth: Moist mucous membranes. Chest: Decreased air entry bilaterally. No wheezing or rhonchi. Cardiovascular: Positive S1, positive S2. Regular rate and rhythm. Abdomen: Positive bowel sounds in all 4 quadrants. Soft, non-tender, non- distended. : Deferred. Rectal: Deferred. Skin: Warm, dry. Intact. Extremities: 2+ radial pulses bilaterally. No lower extremity edema. Neuro: Awake, alert, oriented x3. No gross motor or sensory deficits. Cranial nerves II through XII intact. Gait not assessed. Labs/Diagnostic Data Labs Test 01/12/25 17:34 01/12/25 13:00 01/12/25 04:36 01/10/25 12:45 Range/Units POC Glucose 99 70-106 mg/dl Ammonia 33 H 11-32 umol/L White Blood Count 12.7 H 4.4-10.8 10^3/uL Red Blood Count 3.55 L 4.0-5.20 10^6/uL Hemoglobin 11.6 L 12.2-16.2 g/dL Hematocrit 35.2 L 36.0-46.0 % Mean Corpuscular Volume 99.0 80.0-100.0 fL Mean Corpuscular Hemoglobin 32.6 H 28.0-32.0 pg Mean Corpuscular Hemoglobin Concent 33.0 32.0-36.0 g/dL Red Cell Distribution Width 15.6 H 11.8-14.3 % Platelet Count 105 L 140-450 10^3/uL Mean Platelet Volume 10.5 6.9-10.8 fL Neutrophils (%) (Auto) 71.8 37.0-80.0 % Lymphocytes (%) (Auto) 6.8 L 10.0-50.0 % Monocytes (%) (Auto) 12.1 H 0.0-12.0 % Eosinophils (%) (Auto) 9.0 H 0.0-7.0 % Basophils (%) (Auto) 0.3 0.0-2.0 % Neutrophils # (Auto) 9.1 H 1.6-8.6 10 ^3/uL Lymphocytes # (Auto) 0.9 0.4-5.4 10 ^3/uL Monocytes # (Auto) 1.5 H 0-1.3 10 ^3/uL Eosinophils # (Auto) 1.1 H 0-0.8 10 ^3/uL Basophils # (Auto) 0 0-0.2 10 ^3/uL Nucleated Red Blood Cells 0.1 % Sodium Level 131 L 136-145 mmol/L Potassium Level 5.1 3.5-5.1 mmol/L Chloride Level 99 98-107 mmol/L Carbon Dioxide Level 18 L 20-31 mmol/L Anion Gap 14 5-15 Blood Urea Nitrogen 39 H 9-23 mg/dL Creatinine 4.84 H 0.550-1.02 mg/dL Glomerular Filtration Rate Calc 10 >90 mL/min BUN/Creatinine Ratio 8.1 L 10.0-20.0 Serum Glucose 194 H 74-106 mg/dL Calcium Level 8.4 L 8.7-10.4 mg/dL Body Fluid Source Peritoneal fluid Body Fluid pH 8.0 Body Fluid WBC (Manual) 218 H 0-200 CUMM Body Fluid RBC (Manual) 446 0-2000 CUMM Body Fluid Mononuclear Cells 20 % Body Fluid Polymorphonuclear Cells 80 H 0-25 % Body Fluid Glucose 126 . mg/dL Body Fluid Total Protein 3.0 . g/dL Body Fluid Lactate Dehydrogenase 81 . IU/L Test 01/10/25 05:19 01/09/25 09:07 01/09/25 04:28 01/09/25 03:50 Range/Units Phosphorus Level 5.1 2.4-5.1 mg/dL Iron Level 21 L 50-170 ug/dL Total Iron Binding Capacity 120 L 250-425 ug/dL Percent Iron Saturation 17.5 15-50 % Ferritin 257.9 10-291 ng/mL Hepatitis A IgM Antibody Negative Hepatitis B Surface Antigen Negative Negative Hepatitis B Core IgM Antibody Negative Negative Hepatitis C Antibody Negative Negative Lactic Acid Level 2.0 0.4-2.0 mmol/L Troponin I High Sensitivity 593 *H </=34 ng/L Influenza Type A Antigen Negative Negative Influenza Type B Antigen Negative Negative SARS-CoV-2 Antigen (Rapid) Negative NEGATIVE Test 01/09/25 03:35 01/09/25 01:15 01/09/25 00:57 01/08/25 19:36 Range/Units Magnesium Level 2.2 1.6-2.6 mg/dL Blood Gas Specimen Type Arterial Blood Gas Sample Site Left brachial Blood Gas Patient Temperature 37.0 Arterial Blood Date Drawn [id number] Arterial Blood pH 7.337 L 7.350-7.450 Arterial Blood Partial Pressure CO2 40.0 32.0-45.0 mmHg Arterial Blood Partial Pressure O2 100.2 83.0-108.0 mmHg Arterial Blood HCO3 21.0 21.0-28.0 mmol/L Arterial Blood Oxygen Saturation 97.2 94.0-98.0 % Arterial Blood Base Excess -4.5 L -2.0-3.0 mmol/L Arterial Blood Oxyhemoglobin 96.0 94.0-98.0 % Arterial Blood Carboxyhemoglobin 1.0 0.5-1.5 % Arterial Blood Methemoglobin 0.2 0.0-1.5 % Dima Test Yes Blood Gas Total Hemoglobin 12.20 12.0-16.0 g/dL Blood Gas Modality Nasal cannula FiO2 % 32.0 Hemoglobin A1c 6.8 H <5.7 % A1C Vitamin B12 Level 868 211-911 pg/mL Folic Acid 19.06 >5.38 ng/mL Thyroid Stimulating Hormone (TSH) 0.97 0.55-4.78 uIU/mL Platelet Estimate Decreased Large Platelets Few Anisocytosis (manual) Moderate Macrocytosis Moderate Stomatocytes Moderate Prothrombin Time 14.5 H 9.3-11.8 sec Prothrombin Time INR 1.42 H 0.9-1.15 B-Type Natriuretic Peptide 2779.12 0-100 pg/mL Test 01/08/25 18:00 Range/Units Total Bilirubin 0.5 0.2-1.0 mg/dL Aspartate Amino Transferase (AST) 13 13-40 U/L Alanine Aminotransferase (ALT) < 9 7-40 U/L Alkaline Phosphatase 147 H 46-116 U/L Total Protein 5.6 L 5.7-8.2 g/dL Albumin 3.8 3.2-4.8 g/dL Microbiology Date/Time Source Procedure Growth Status 01/10/25 15:18 Blood Blood Culture - Preliminary Resulted 01/10/25 12:45 Ascities Fluid Gram Stain - Final Resulted 01/10/25 12:45 Ascities Fluid Body Fluid Culture - Preliminary Resulted 01/09/25 14:00 Sputum Gram Stain - Final Resulted 01/09/25 14:00 Respiratory Culture - Preliminary Presumptive Lisa albicans Resulted 01/09/25 05:00 Nose MRSA Screen - Final Complete Assessment Impression: Acute hypoxic respiratory failure Dependence on supplemental oxygen End-stage renal disease, on hemodialysis Heart failure with recent pericardial window due to recurrent pericardial effusions Refractory ascites due to cirrhosis with frequent paracentesis Diabetes mellitus Non-ST elevation NM Plan: Supplemental oxygen 2 LPM NC Titrate to keep O2 sats above 92%. Taper O2 as tolerated. S/p paracentesis on 01/10/25 Head of bed elevation Aspiration precautions Continue antibiotics Amiodarone PO On midodrine On pressors for hemodynamic support Levophed 10 mcg/min Titrate to keep mean arterial pressure greater than 65 mmHg. Hemodialysis this PM. Follow up Nephrology recommendations Monitor renal function. Monitor electrolytes. Supplement as necessary. Monitor ins and outs. DVT prophylaxis. Prognosis: Poor given patient's multiple co-morbidities. Condition: Critical Rest of plan per hospitalist and other consultants. A total of 35 minutes of critical care time was spent reviewing the patient record, examining the patient, making a diagnostic and therapeutic plan, discussing this plan with the medical personnel, following up on diagnostic studies and following the patient for clinical stability excluding any and all procedures. At least 50% of this time was spent in direct, [id number] contact. Thank you, ELLIE Moreland, for allowing me to participate in this patient's care. Further recommendations will depend on the patient's clinical course. Please do not hesitate to contact me if you have any questions or concerns. This medical document was created using an electronic medical record system with [employer] computerized dictation system. Although these documentations are being carefully reviewed, there may still be some phonetic and typographical changes. The errors are purely typographical, due to imperfection on the software program, and do not reflect any compromise in the patient's medical care. Plan discussed with: Patient, Other (LAVERNE Tovar/ELLIE Moreland/) MAYE HEATH MD Jan 12, 2025 22:40
[2025-01-13] VITALS (96 sets, daily range): BP systolic 90–142; BP diastolic 10–75; PULSE 73–100; RESP 8–20; TEMP 97.8–99.1; O2SAT 72–100
[2025-01-13 04:50] LABS: Basophils # (auto) 0.1 10 ^3/uL (0-0.2); Basophils % (auto) 1.2 % (0.0-2.0); Eosinophils # (auto) 0.8 10 ^3/uL (0-0.8); Eosinophils % (auto) 7.4 % (0.0-7.0); Hemoglobin 10.7 g/dL (12.2-16.2); Lymphocytes # (auto) 0.7 10 ^3/uL (0.4-5.4); Lymphocytes % (auto) 7.3 % (10.0-50.0); Mean Corpuscular Hemoglobin 32.5 pg (28.0-32.0); Mean Corpuscular Hgb Conc. 32.5 g/dL (32.0-36.0); Mean Corpuscular Volume 99.8 fL (80.0-100.0); Monocytes # (auto) 1.4 10 ^3/uL (0-1.3); Monocytes % (auto) 13.6 % (0.0-12.0); Neutrophils # (auto) 7.2 10 ^3/uL (1.6-8.6); Neutrophils % (auto) 70.5 % (37.0-80.0); Nucleated Red Blood Cells % 0.1 %; Platelet Count (auto) 114 10^3/uL (140-450); Red Blood Cells 3.31 10^6/uL (4.0-5.20); Red Cell Distribution Width 16.1 % (11.8-14.3); White Blood Cell 10.3 10^3/uL (4.4-10.8)
[2025-01-13 05:11] LABS: Albumin 3.5 g/dL (3.2-4.8); Anion Gap 16 (5-15); BUN/Creatinine Ratio 7.6 (10.0-20.0); Bilirubin, Total 0.9 mg/dL (0.2-1.0); Carbon Dioxide 21 mmol/L (20-31); Magnesium 2.1 mg/dL (1.6-2.6); Potassium 4.7 mmol/L (3.5-5.1)
[2025-01-13 05:13] LABS: Alanine Aminotransferase < 9 U/L (7-40); Alkaline Phosphatase 214 U/L (46-116); Aspartate Aminotransferase 11 U/L (13-40); Blood Urea Nitrogen 30 mg/dL (9-23); Calcium 8.4 mg/dL (8.7-10.4); Chloride 97 mmol/L (98-107); Glucose 215 mg/dL (74-106); Sodium 134 mmol/L (136-145); Total Protein 5.1 g/dL (5.7-8.2)
--- NOTE | 2025-01-13 12:41 | DVHPN2 ---
Progress Note - Dictate Date Seen: Jan 13, 2025 Medical Necessity Reason Pt with a Central, PICC or Fol: Yes The following are medically ne: Central Line Subjective Somnolent this afternoon, tolerated dialysis yesterday vital signs Vital Sign Date Time Temp Pulse Resp B/P (MAP) Pulse Ox O2 Delivery O2 Flow Rate FiO2 01/13/25 12:15 76 12 91/22 (45) 80 01/13/25 10:00 Nasal Cannula* 2 28 01/13/25 08:01 97.8 97.8 Total Intake and Output 01/12/25 01/12/25 01/13/25 15:00 23:00 07:00 Intake Total 169.376 ml 277.504 ml 337.504 ml Output Total 0 ml Balance 169.376 ml 277.504 ml 337.504 ml medications Current Medications Medications Dose Ordered Sig/Honey Route Start Time Stop Time Status Last Admin Dose Admin Vancomycin HCl 0 ml @ 0 mls/hr UD IV 01/08/25 21:30 Diagnostic Test (Pha) 1 strip Q6HR 01/09/25 06:00 01/13/25 12:13 1 STRIP Insulin Human Regular Q6HR SC 01/09/25 06:00 01/13/25 05:39 4 UNITS Dextrose 50 ml UD PRN IV 01/09/25 00:30 Pantoprazole Sodium 40 mg DAILY IV 01/10/25 10:00 01/13/25 09:57 40 MG Acetaminophen/ Hydrocodone Bitart 1 tab Q8HPRN PRN PO 01/09/25 10:30 01/12/25 22:06 1 TAB Ondansetron HCl 4 mg Q8HPRN PRN IV 01/09/25 10:30 Acetaminophen 650 mg Q6HP PRN PO 01/09/25 10:30 01/11/25 00:19 650 MG Ferrous Sulfate 325 mg BIDWM PO 01/10/25 18:00 01/13/25 08:45 325 MG Amiodarone HCl 200 mg DAILY PO 01/10/25 10:00 01/13/25 10:01 200 MG Sevelamer HCl 800 mg TIDWM PO 01/10/25 18:00 01/13/25 11:38 800 MG Gabapentin 100 mg TID PO 01/11/25 14:00 01/13/25 05:39 100 MG Norepinephrine Bitartrate 32 mg/ Sodium Chloride 250 ml @ 0.938 mls/ hr Q24H IV 01/12/25 12:00 01/12/25 13:28 4.688 MLS/HR Midodrine 5 mg TID@0600,1200,1800 PO 01/12/25 18:00 01/13/25 11:41 5 MG Piperacillin Sod/ Tazobactam Sod 100 ml @ 25 mls/hr Q12HR IV 01/12/25 22:00 01/13/25 09:57 25 MLS/HR objective Gen: nad, pale heent: nc/at, mmm lungs: cta anteriorly cvs: no rub abd: Soft, fluid wave appreciated skin: no rash neuro: Somnolent laboratory and microbiology Laboratory Tests 01/13/25 04:41 Test 01/13/25 04:41 Range/Units Serum Glucose 215 H 74-106 mg/dL Assessment/Plan End-stage renal disease on hemodialysis Heart failure with recent pericardial window due to recurrent pericardial effusions Refractory ascites due to cirrhosis with frequent paracentesis Diabetes - metabolic parameters acceptable - therapeutic paracentesis - next dialysis tentatively January 15 Dietary Evaluation Review Comments: 1) Nepro carb steady 240ml BID (ordered per ONS protocol) 2) Neprhro-Kaela 1 tab daily 3) Continue current plan of care Expected Outcomes/Goals: To meet >75% estimated needs Fu 3-5 days Plan discussed with: KAVIN Tinajero MD Jan 13, 2025 12:41
--- NOTE | 2025-01-13 21:05 | DVHNC2 ---
Procedure - Paracentesis Procedure Note INDICATION: Ascites PROCEDURE WINDOW UNIT AIR CONDITIONING MECHANIC: Dr Fabrice Ibarra Asst: JEANE GALLOWAY Ultrasound used to [place] location: Yes CONSENT: Consent was obtained from patient prior to the procedure. Indications, risks, and benefits were explained at length. Time out time: 2049 pm Patient medications and allergies reviewed. The risks and benefits of the procedure and the sedation options and risk were discussed with the patient's healthcare proxy. All questions were answered and informed consent was obtained. Patient identification and proposed procedure were verified prior to the procedure by the physician, and a nurse in the patient's room. The heart rate, respiratory rate, oxygen saturations, blood pressure, adequacy of pulmonary ventilation, and response to care were monitored throughout the procedure. The physical status of the patient was reassessed after the procedure. PROCEDURE SUMMARY: A time-out was performed. My hands were washed immediately prior to the procedure. I wore a surgical cap, mask with protective eyewear, sterile gown and sterile gloves throughout the procedure. The area was cleansed and draped in usual sterile fashion using chlorhexidine scrub. Anesthesia was achieved with 1% lidocaine. The _ of the abdomen was prepped and draped in a sterile fashion using chlorhexidine scrub. 1% lidocaine was used to numb the skin, soft tissue and peritoneum. The paracentesis catheter was inserted and advanced with negative pressure until yellow colored fluid was aspirated. The catheter was then connected to the vaccutainer and 3.3 liters of additional ascitic fluid were drained. The catheter was removed and no leaking was noted. A band aid and petroleum gauze were placed over the puncture wound. The patient tolerated the procedure well without any immediate complications. Estimated blood loss was less than 5 mL. CPT 83293 FABRICE IBARRA MD Jan 13, 2025 21:05
[2025-01-13] MEDS: ALBUMIN 25% 100 ML IV ONE (21:25)
--- NOTE | 2025-01-13 23:54 | DVHPN2 ---
Progress Note - Dictate Date Seen: Jan 13, 2025 Medical Necessity Reason Pt with a Central, PICC or Fol: Yes The following are medically ne: Central Line Subjective Patient seen and examined at bedside. Remains on supplemental oxygen Overnight events reviewed. vital signs Vital Sign Date Time Temp Pulse Resp B/P (MAP) Pulse Ox O2 Delivery O2 Flow Rate FiO2 01/13/25 20:15 80 12 95/75 (82) 92 01/13/25 20:00 98.5 98.5 01/13/25 18:00 Nasal Cannula* 2 28 Total Intake and Output 01/12/25 01/12/25 01/13/25 15:00 23:00 07:00 Intake Total 169.376 ml 277.504 ml 337.504 ml Output Total 0 ml Balance 169.376 ml 277.504 ml 337.504 ml medications Current Medications Medications Dose Ordered Sig/Honey Route Start Time Stop Time Status Last Admin Dose Admin Vancomycin HCl 0 ml @ 0 mls/hr UD IV 01/08/25 21:30 Diagnostic Test (Pha) 1 strip Q6HR 01/09/25 06:00 01/13/25 23:27 1 STRIP Insulin Human Regular Q6HR SC 01/09/25 06:00 01/13/25 23:26 2 UNITS Dextrose 50 ml UD PRN IV 01/09/25 00:30 Pantoprazole Sodium 40 mg DAILY IV 01/10/25 10:00 01/13/25 09:57 40 MG Acetaminophen/ Hydrocodone Bitart 1 tab Q8HPRN PRN PO 01/09/25 10:30 01/12/25 22:06 1 TAB Ondansetron HCl 4 mg Q8HPRN PRN IV 01/09/25 10:30 Acetaminophen 650 mg Q6HP PRN PO 01/09/25 10:30 01/11/25 00:19 650 MG Ferrous Sulfate 325 mg BIDWM PO 01/10/25 18:00 01/13/25 17:21 325 MG Amiodarone HCl 200 mg DAILY PO 01/10/25 10:00 01/13/25 10:01 200 MG Sevelamer HCl 800 mg TIDWM PO 01/10/25 18:00 01/13/25 17:21 800 MG Gabapentin 100 mg TID PO 01/11/25 14:00 01/13/25 21:18 100 MG Norepinephrine Bitartrate 32 mg/ Sodium Chloride 250 ml @ 0.938 mls/ hr Q24H IV 01/12/25 12:00 01/13/25 17:28 2.813 MLS/HR Midodrine 5 mg TID@0600,1200,1800 PO 01/12/25 18:00 01/13/25 17:22 5 MG Piperacillin Sod/ Tazobactam Sod 100 ml @ 25 mls/hr Q12HR IV 01/12/25 22:00 01/13/25 21:18 25 MLS/HR objective Gen.: Patient lying in bed in no apparent distress. On supplemental oxygen. Head: Normocephalic, atraumatic. Eyes: EOMI/PERRLA. Ears: Normal hearing. Normal anatomy. Neck/trachea: Trachea midline, supple. Nose: Normal external anatomy. Mouth: Moist mucous membranes. Chest: Decreased air entry bilaterally. No wheezing or rhonchi. Cardiovascular: Positive S1, positive S2. Regular rate and rhythm. Abdomen: Positive bowel sounds in all 4 quadrants. Soft, non-tender, non- distended. : Deferred. Rectal: Deferred. Skin: Warm, dry. Intact. Extremities: 2+ radial pulses bilaterally. No lower extremity edema. Neuro: Awake, alert, oriented x3. No gross motor or sensory deficits. Cranial nerves II through XII intact. Gait not assessed. laboratory and microbiology Laboratory Tests 01/13/25 04:41 Test 01/13/25 04:41 Range/Units Serum Glucose 215 H 74-106 mg/dL Assessment/Plan Impression: Acute hypoxic respiratory failure Dependence on supplemental oxygen End-stage renal disease, on hemodialysis Heart failure with recent pericardial window due to recurrent pericardial effusions Refractory ascites due to cirrhosis with frequent paracentesis Diabetes mellitus Non-ST elevation [place] Events: Remains on supplemental oxygen, 3 LPM NC Taper O2 as tolerated On pressors for hemodynamic support Levophed 10 mcg/min Titrate to keep mean arterial pressure greater than 65 mmHg. S/p paracentesis today- 3.3 liters of ascitic fluid removed Received albumin post paracentesis. See separate procedure note for details. Continue antibiotics Amiodarone PO Protonix for GI prophylaxis Labs and imaging reviewed. Rest of plan as noted below. Plan: Supplemental oxygen Titrate to keep O2 sats above 92%. S/p paracentesis on 01/10/25 Head of bed elevation Aspiration precautions Continue antibiotics Amiodarone PO On midodrine On pressors for hemodynamic support Titrate to keep mean arterial pressure greater than 65 mmHg. Hemodialysis per Nephrology Follow up Nephrology recommendations Monitor renal function. Monitor electrolytes. Supplement as necessary. Monitor ins and outs. DVT prophylaxis. Prognosis: Poor given patient's multiple co-morbidities. Condition: Critical Rest of plan per hospitalist and other consultants. A total of 35 minutes of critical care time was spent reviewing the patient record, examining the patient, making a diagnostic and therapeutic plan, discussing this plan with the medical personnel, following up on diagnostic studies and following the patient for clinical stability excluding any and all procedures. At least 50% of this time was spent in direct, [id number] contact. Thank you, ELLIE Moreland, for allowing me to participate in this patient's care. Further recommendations will depend on the patient's clinical course. Please do not hesitate to contact me if you have any questions or concerns. This medical document was created using an electronic medical record system with [employer] dictation system. Although these documentations are being carefully reviewed, there may still be some phonetic and typographical changes. The errors are purely typographical, due to imperfection on the software program, and do not reflect any compromise in the patient's medical care. Dietary Evaluation Review Comments: 1) Nepro carb steady 240ml BID (ordered per ONS protocol) 2) Neprhro-Kaela 1 tab daily 3) Continue current plan of care Expected Outcomes/Goals: To meet >75% estimated needs Fu 3-5 days Plan discussed with: Other (RN Qian) Critical Care Time(min): 35 MAYE HEATH MD Jan 13, 2025 23:54
[2025-01-14] VITALS (97 sets, daily range): BP systolic 62–123; BP diastolic 33–74; PULSE 70–92; RESP 6–25; TEMP 97.1–98.5; O2SAT 74–100
[2025-01-14 06:15] LABS: Basophils # (auto) 0.1 10 ^3/uL (0-0.2); Eosinophils # (auto) 0.8 10 ^3/uL (0-0.8); Eosinophils % (auto) 6.3 % (0.0-7.0); Hematocrit 33.3 % (36.0-46.0); Hemoglobin 10.9 g/dL (12.2-16.2); Lymphocytes # (auto) 0.9 10 ^3/uL (0.4-5.4); Mean Corpuscular Hemoglobin 32.4 pg (28.0-32.0); Mean Corpuscular Hgb Conc. 32.8 g/dL (32.0-36.0); Mean Corpuscular Volume 98.7 fL (80.0-100.0); Monocytes # (auto) 2.1 10 ^3/uL (0-1.3); Monocytes % (auto) 16.2 % (0.0-12.0); Neutrophils # (auto) 8.9 10 ^3/uL (1.6-8.6); Neutrophils % (auto) 69.5 % (37.0-80.0); Nucleated Red Blood Cells % 0.1 %; Platelet Count (auto) 119 10^3/uL (140-450); Red Blood Cells 3.37 10^6/uL (4.0-5.20); Red Cell Distribution Width 15.9 % (11.8-14.3); White Blood Cell 12.7 10^3/uL (4.4-10.8)
[2025-01-14 06:30] LABS: Albumin 3.8 g/dL (3.2-4.8); Anion Gap 16 (5-15); BUN/Creatinine Ratio 7.7 (10.0-20.0); Carbon Dioxide 21 mmol/L (20-31); Magnesium 2.2 mg/dL (1.6-2.6); Potassium 4.8 mmol/L (3.5-5.1)
[2025-01-14 06:42] LABS: Blood Urea Nitrogen 36 mg/dL (9-23); Chloride 95 mmol/L (98-107); Glucose 120 mg/dL (74-106); Sodium 132 mmol/L (136-145)
[2025-01-14 06:43] LABS: Alanine Aminotransferase < 9 U/L (7-40); Alkaline Phosphatase 182 U/L (46-116); Aspartate Aminotransferase < 8 U/L (13-40); Calcium 8.6 mg/dL (8.7-10.4); Total Protein 5.6 g/dL (5.7-8.2)
--- NOTE | 2025-01-14 08:11 | ECG ---
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
--- NOTE | 2025-01-14 08:31 | DVHPN2 ---
Reviewed: Care Plan, H&P, Labs, Medications Changes from previous H/P or p: No Changes General: Per HPI Objective Vitals Vital Signs Date Time Temp Pulse Resp B/P (MAP) Pulse Ox O2 Delivery O2 Flow Rate FiO2 01/14/25 07:30 79 12 97 Nasal Cannula* 5 40 01/14/25 06:15 93/48 (63) 01/14/25 04:00 97.7 97.7 Intake/Output Intake and Output 01/14/25 07:00 Intake Total 586.882 ml Output Total 3300 ml Balance -2713.118 ml Intake Oral 280 ml IV Total 306.882 ml Output Urine Total 0 ml Stool Total 0 ml Gastric Drainage Total 3300 ml General Appearance: Alert, Oriented X3, Cooperative, No acute distress HEENT: Atraumatic, PERRLA, Other (Blind) Lungs: Clear to auscultation, Normal air movement Cardiovascular: Normal S1, Normal S2 Back: Flank Tenderness, Midline Tenderness Neuro: Normal gait, Normal speech, Cranial nerves 3-12 NL Skin: Dry, Intact Psych/Mental Status: Mental status NL, Mood NL Medications Current Medications Medications Dose Ordered Sig/Honey Route Start Time Stop Time Status Last Admin Dose Admin Vancomycin HCl 0 ml @ 0 mls/hr UD IV 01/08/25 21:30 Diagnostic Test (Pha) 1 strip Q6HR 01/09/25 06:00 01/14/25 06:24 1 STRIP Insulin Human Regular Q6HR SC 01/09/25 06:00 01/13/25 23:26 2 UNITS Dextrose 50 ml UD PRN IV 01/09/25 00:30 Pantoprazole Sodium 40 mg DAILY IV 01/10/25 10:00 01/13/25 09:57 40 MG Acetaminophen/ Hydrocodone Bitart 1 tab Q8HPRN PRN PO 01/09/25 10:30 01/12/25 22:06 1 TAB Ondansetron HCl 4 mg Q8HPRN PRN IV 01/09/25 10:30 Acetaminophen 650 mg Q6HP PRN PO 01/09/25 10:30 01/11/25 00:19 650 MG Ferrous Sulfate 325 mg BIDWM PO 01/10/25 18:00 01/13/25 17:21 325 MG Amiodarone HCl 200 mg DAILY PO 01/10/25 10:00 01/13/25 10:01 200 MG Sevelamer HCl 800 mg TIDWM PO 01/10/25 18:00 01/13/25 17:21 800 MG Gabapentin 100 mg TID PO 01/11/25 14:00 01/14/25 06:25 100 MG Norepinephrine Bitartrate 32 mg/ Sodium Chloride 250 ml @ 0.938 mls/ hr Q24H IV 01/12/25 12:00 01/13/25 17:28 2.813 MLS/HR Midodrine 5 mg TID@0600,1200,1800 PO 01/12/25 18:00 01/14/25 06:25 5 MG Piperacillin Sod/ Tazobactam Sod 100 ml @ 25 mls/hr Q12HR IV 01/12/25 22:00 01/13/25 21:18 25 MLS/HR Laboratory Results Laboratory Tests 01/14/25 05:42 Chemistry Test 01/14/25 05:42 Albumin 3.8 g/dL (3.2-4.8) Calcium Level 8.6 mg/dL (8.7-10.4) L Magnesium Level 2.2 mg/dL (1.6-2.6) Total Protein 5.6 g/dL (5.7-8.2) L LFT Test 01/14/25 05:42 Alanine Aminotransferase (ALT) < 9 U/L (7-40) Alkaline Phosphatase 182 U/L (46-116) H Aspartate Amino Transferase (AST) < 8 U/L (13-40) L Total Bilirubin 1.0 mg/dL (0.2-1.0) Microbiology Microbiology Date/Time Source Procedure Growth Status 01/10/25 15:18 Blood Blood Culture - Preliminary Resulted 01/10/25 12:45 Ascities Fluid Gram Stain - Final Resulted 01/10/25 12:45 Ascities Fluid Body Fluid Culture - Preliminary Resulted 01/09/25 14:00 Sputum Gram Stain - Final Complete 01/09/25 14:00 Respiratory Culture - Final Presumptive Lisa albicans Complete 01/09/25 05:00 Nose MRSA Screen - Final Complete Assessment/Plan Assessment/Plan Impression: Multiple acute/subacute strokes Left lower extremity cellulitis Rule out left septic knee Hypokalemia Acute kidney injury likely hemodynamically mediated due to vasomotor nephropathy Chronic kidney disease Peripheral vascular disease status post right [id number] amputation 6 months ago Poorly controlled type 2 diabetes Sepsis Hypertension Mixed hyperlipidemia Polysubstance use disorder Diabetic neuropathy -? Suicidal ideation -septic bursitis with Staphylococcus aureus -septic shock Plan: -events: H&H stable. Minimal gastric secretions. Patient became hypothermic -start tube feeding with Nepro -continue vasopressor therapy to keep map greater than 65 mmHg -bronchodilators -antibiotics: Continue Rocephin and clindamycin, add Florastor -potassium replacement -continue PPI Total time spent with patient discussing and formulating plan of care: 35 minutes. Plan discussed with: Patient, Other (nursing) Date of Service: Jan 13, 2025 Billing Provider: KARTIK LOPEZ DO Common Visit Codes: [id number] CARE 30-74 MIN KARTIK LOPEZ DO Jan 14, 2025 08:31
--- NOTE | 2025-01-14 10:02 | DVHPN2 ---
Progress Note Date Seen: Jan 14, 2025 Medical Necessity Reason Pt with a Central, PICC or Fol: Yes The following are medically ne: Central Line Subjective Patient reports: Feels better (still on levophed) Objective vital signs Vital Sign Date Time Temp Pulse Resp B/P (MAP) Pulse Ox O2 Delivery O2 Flow Rate FiO2 01/14/25 08:30 84 21 97 01/14/25 07:30 Nasal Cannula* 5 40 01/14/25 04:00 97.7 97.7 Total Intake and Output 01/13/25 01/13/25 01/14/25 15:00 23:00 07:00 Intake Total 132.814 ml 361.879 ml 92.189 ml Output Total 3300 ml 0 ml Balance 132.814 ml -2938.121 ml 92.189 ml medications Current Medications Medications Dose Ordered Sig/Honey Route Start Time Stop Time Status Last Admin Dose Admin Vancomycin HCl 0 ml @ 0 mls/hr UD IV 01/08/25 21:30 Diagnostic Test (Pha) 1 strip Q6HR 01/09/25 06:00 01/14/25 06:24 1 STRIP Insulin Human Regular Q6HR SC 01/09/25 06:00 01/13/25 23:26 2 UNITS Dextrose 50 ml UD PRN IV 01/09/25 00:30 Pantoprazole Sodium 40 mg DAILY IV 01/10/25 10:00 01/13/25 09:57 40 MG Acetaminophen/ Hydrocodone Bitart 1 tab Q8HPRN PRN PO 01/09/25 10:30 01/12/25 22:06 1 TAB Ondansetron HCl 4 mg Q8HPRN PRN IV 01/09/25 10:30 Acetaminophen 650 mg Q6HP PRN PO 01/09/25 10:30 01/11/25 00:19 650 MG Ferrous Sulfate 325 mg BIDWM PO 01/10/25 18:00 01/14/25 09:05 325 MG Amiodarone HCl 200 mg DAILY PO 01/10/25 10:00 01/13/25 10:01 200 MG Sevelamer HCl 800 mg TIDWM PO 01/10/25 18:00 01/14/25 09:05 800 MG Gabapentin 100 mg TID PO 01/11/25 14:00 01/14/25 06:25 100 MG Norepinephrine Bitartrate 32 mg/ Sodium Chloride 250 ml @ 0.938 mls/ hr Q24H IV 01/12/25 12:00 01/13/25 17:28 2.813 MLS/HR Midodrine 5 mg TID@0600,1200,1800 PO 01/12/25 18:00 01/14/25 06:25 5 MG Piperacillin Sod/ Tazobactam Sod 100 ml @ 25 mls/hr Q12HR IV 01/12/25 22:00 01/13/25 21:18 25 MLS/HR laboratory and microbiology Laboratory Tests 01/14/25 05:42 Test 01/14/25 05:42 Range/Units Serum Glucose 120 H 74-106 mg/dL Microbiology Date/Time Source Procedure Growth Status 01/10/25 15:18 Blood Blood Culture - Preliminary Resulted 01/10/25 12:45 Ascities Fluid Gram Stain - Final Resulted 01/10/25 12:45 Ascities Fluid Body Fluid Culture - Preliminary Resulted 01/09/25 14:00 Sputum Gram Stain - Final Complete 01/09/25 14:00 Respiratory Culture - Final Presumptive Lisa albicans Complete 01/09/25 05:00 Nose MRSA Screen - Final Complete Problem List/Assessment/Plan Problem List/Assessment/Plan Admitted for fluid overload in the setting of refractory ascites Shock cardiogenic versus septic End-stage renal disease on hemodialysis Heart failure with recent pericardial drainage due to recurrent pericardial effusions Refractory ascites due to cirrhosis with frequent paracentesis Diabetes HD tomorrow while on levophed, IV albumin midodrine po Cardiology- posterior pericardial effusion RV failure s/p paracentesis 01/10/25 renal diet Plan discussed with: Patient Dietary Evaluation Review Comments: 1) Nepro carb steady 240ml BID (ordered per [facility] protocol) 2) Neprhro-Kaela 1 tab daily 3) Continue current plan of care Expected Outcomes/Goals: To meet >75% estimated needs Fu 3-5 days Critical Care Time (mins): 33 MARLEY LARSEN MD Jan 14, 2025 10:02
--- NOTE | 2025-01-14 10:28 | DVHPN2 ---
Subjective Patient denies any symptoms Reviewed: Care Plan, H&P, Labs, Medications Changes from previous H/P or p: No Changes General: Per HPI Objective Vitals Vital Signs Date Time Temp Pulse Resp B/P (MAP) Pulse Ox O2 Delivery O2 Flow Rate FiO2 01/14/25 08:30 84 21 97 01/14/25 07:30 Nasal Cannula* 5 40 01/14/25 04:00 97.7 97.7 Intake/Output Intake and Output 01/14/25 07:00 Intake Total 586.882 ml Output Total 3300 ml Balance -2713.118 ml Intake Oral 280 ml IV Total 306.882 ml Output Urine Total 0 ml Stool Total 0 ml Gastric Drainage Total 3300 ml General Appearance: Alert, Oriented X3, Cooperative, No acute distress HEENT: Atraumatic, PERRLA, Other (Blind) Lungs: Clear to auscultation, Normal air movement Cardiovascular: Normal S1, Normal S2 Back: Flank Tenderness, Midline Tenderness Neuro: Normal gait, Normal speech, Cranial nerves 3-12 NL Skin: Dry, Intact Psych/Mental Status: Mental status NL, Mood NL Medications Current Medications Medications Dose Ordered Sig/Honey Route Start Time Stop Time Status Last Admin Dose Admin Vancomycin HCl 0 ml @ 0 mls/hr UD IV 01/08/25 21:30 Diagnostic Test (Pha) 1 strip Q6HR 01/09/25 06:00 01/14/25 06:24 1 STRIP Insulin Human Regular Q6HR SC 01/09/25 06:00 01/13/25 23:26 2 UNITS Dextrose 50 ml UD PRN IV 01/09/25 00:30 Pantoprazole Sodium 40 mg DAILY IV 01/10/25 10:00 01/13/25 09:57 40 MG Acetaminophen/ Hydrocodone Bitart 1 tab Q8HPRN PRN PO 01/09/25 10:30 01/12/25 22:06 1 TAB Ondansetron HCl 4 mg Q8HPRN PRN IV 01/09/25 10:30 Acetaminophen 650 mg Q6HP PRN PO 01/09/25 10:30 01/11/25 00:19 650 MG Ferrous Sulfate 325 mg BIDWM PO 01/10/25 18:00 01/14/25 09:05 325 MG Amiodarone HCl 200 mg DAILY PO 01/10/25 10:00 01/13/25 10:01 200 MG Sevelamer HCl 800 mg TIDWM PO 01/10/25 18:00 01/14/25 09:05 800 MG Gabapentin 100 mg TID PO 01/11/25 14:00 01/14/25 06:25 100 MG Norepinephrine Bitartrate 32 mg/ Sodium Chloride 250 ml @ 0.938 mls/ hr Q24H IV 01/12/25 12:00 01/13/25 17:28 2.813 MLS/HR Midodrine 5 mg TID@0600,1200,1800 PO 01/12/25 18:00 01/14/25 06:25 5 MG Piperacillin Sod/ Tazobactam Sod 100 ml @ 25 mls/hr Q12HR IV 01/12/25 22:00 01/13/25 21:18 25 MLS/HR Laboratory Results Laboratory Tests 01/14/25 05:42 Chemistry Test 01/14/25 05:42 Albumin 3.8 g/dL (3.2-4.8) Calcium Level 8.6 mg/dL (8.7-10.4) L Magnesium Level 2.2 mg/dL (1.6-2.6) Total Protein 5.6 g/dL (5.7-8.2) L LFT Test 01/14/25 05:42 Alanine Aminotransferase (ALT) < 9 U/L (7-40) Alkaline Phosphatase 182 U/L (46-116) H Aspartate Amino Transferase (AST) < 8 U/L (13-40) L Total Bilirubin 1.0 mg/dL (0.2-1.0) Microbiology Microbiology Date/Time Source Procedure Growth Status 01/10/25 15:18 Blood Blood Culture - Preliminary Resulted 01/10/25 12:45 Ascities Fluid Gram Stain - Final Resulted 01/10/25 12:45 Ascities Fluid Body Fluid Culture - Preliminary Resulted 01/09/25 14:00 Sputum Gram Stain - Final Complete 01/09/25 14:00 Respiratory Culture - Final Presumptive Lisa albicans Complete 01/09/25 05:00 Nose MRSA Screen - Final Complete Labs and/or images reviewed: Labs reviewed by me, Image(s) reviewed by me Assessment/Plan Assessment/Plan Plan: -septic shock -cirrhosis with severe ascites -ESRD with hemodialysis -NSTEMI, probably type secondary to recent pericardiocentesis -legally blind -anemia of chronic disease - dyslipidemia -paroxysmal atrial fibrillation -possible infiltration of norepinephrine to right upper extremity with extravasation Plan: Events: No events overnight. Continues to be on norepinephrine drip. Final blood cultures pending. Only positive in one set. Arterial ultrasound of right upper extremity unremarkable. Patient was some noted cyanosis to fingers, with cap refill less than 3 seconds. -patient was on adequate coverage with Zosyn and vancomycin -continue vasopressor therapy -pain management: Add gabapentin. -echocardiogram: Results reviewed -nephrology consultation: Recommendations appreciated -radiology consultation for paracentesis -repeat labs in a.m. Critical care time spent with patient discussing and formulating plan of care: 40 minutes. This does not include time spent performing procedures. This medical document was created using an electronic medical record system with [employer] dictation system. Although this document has been carefully reviewed, there may still be some phonetic and typographical errors. These areas are purely typographical due to imperfections of the software programs, and do not reflect any compromise in the patient's medical care. Plan discussed with: Patient, Other (RN) My Orders Orders - PAVEL GUAMAN NP Procedure Category Date Status Time Petrolatum PHA 01/14/25 Verified (Emollient) (Vaseline 10:30 Basic Metabolic Panel LAB 01/15/25 Verified 04:00 Date of Service: Jan 14, 2025 Billing Provider: PAVEL GUAMAN NP Common Visit Codes: [id number] CARE 30-74 MIN PAVEL GUAMAN NP Jan 14, 2025 10:28
[2025-01-14] MEDS: LINEZOLID 600MG/300ML 300 ML IV SCH (15:47)
[2025-01-15] VITALS (63 sets, daily range): BP systolic 91–137; BP diastolic 15–100; PULSE 73–131; RESP 8–27; TEMP 97.5–98.7; O2SAT 87–100
[2025-01-15 06:22] LABS: Anion Gap 16 (5-15); Calcium 8.8 mg/dL (8.7-10.4); Carbon Dioxide 20 mmol/L (20-31)
[2025-01-15 06:27] LABS: BUN/Creatinine Ratio 8.1 (10.0-20.0); Glucose 101 mg/dL (74-106)
[2025-01-15 06:28] LABS: Blood Urea Nitrogen 43 mg/dL (9-23); Chloride 94 mmol/L (98-107); Potassium 5.2 mmol/L (3.5-5.1); Sodium 130 mmol/L (136-145)
--- NOTE | 2025-01-15 09:26 | DVHPN2 ---
Subjective Patient denies any symptoms Reviewed: Care Plan, H&P, Labs, Medications Changes from previous H/P or p: No Changes General: Per HPI Objective Vitals Vital Signs Date Time Temp Pulse Resp B/P (MAP) Pulse Ox O2 Delivery O2 Flow Rate FiO2 01/15/25 08:00 97.9 80 10 101/55 (70) 100 97.9 01/15/25 06:00 Nasal Cannula* 5 40 Intake/Output Intake and Output 01/15/25 07:00 Intake Total 1057.314 ml Output Total 0 ml Balance 1057.314 ml Intake Oral 610 ml IV Total 447.314 ml Stool Total 0 ml # Bowel Movements 1 General Appearance: Alert, Oriented X3, Cooperative, No acute distress HEENT: Atraumatic, PERRLA, Other (Blind) Lungs: Clear to auscultation, Normal air movement Cardiovascular: Normal S1, Normal S2 Back: Flank Tenderness, Midline Tenderness Neuro: Normal gait, Normal speech, Cranial nerves 3-12 NL Skin: Dry, Intact Psych/Mental Status: Mental status NL, Mood NL Medications Current Medications Medications Dose Ordered Sig/Honey Route Start Time Stop Time Status Last Admin Dose Admin Diagnostic Test (Pha) 1 strip Q6HR 01/09/25 06:00 01/15/25 05:33 1 STRIP Insulin Human Regular Q6HR SC 01/09/25 06:00 01/14/25 18:13 2 UNITS Dextrose 50 ml UD PRN IV 01/09/25 00:30 Pantoprazole Sodium 40 mg DAILY IV 01/10/25 10:00 01/14/25 10:29 40 MG Acetaminophen/ Hydrocodone Bitart 1 tab Q8HPRN PRN PO 01/09/25 10:30 01/12/25 22:06 1 TAB Ondansetron HCl 4 mg Q8HPRN PRN IV 01/09/25 10:30 Acetaminophen 650 mg Q6HP PRN PO 01/09/25 10:30 01/11/25 00:19 650 MG Ferrous Sulfate 325 mg BIDWM PO 01/10/25 18:00 01/14/25 18:12 325 MG Amiodarone HCl 200 mg DAILY PO 01/10/25 10:00 01/14/25 10:29 200 MG Sevelamer HCl 800 mg TIDWM PO 01/10/25 18:00 01/14/25 18:12 800 MG Gabapentin 100 mg TID PO 01/11/25 14:00 01/15/25 05:40 100 MG Norepinephrine Bitartrate 32 mg/ Sodium Chloride 250 ml @ 0.938 mls/ hr Q24H IV 01/12/25 12:00 01/13/25 17:28 2.813 MLS/HR Midodrine 5 mg TID@0600,1200,1800 PO 01/12/25 18:00 01/15/25 05:44 5 MG Emollient Ointment 1 applic PRN PRN TOP 01/14/25 10:30 Linezolid 300 ml @ 150 mls/hr Q12HR@0400,1600 IV 01/14/25 16:00 01/15/25 05:33 150 MLS/HR Laboratory Results Laboratory Tests 01/14/25 05:42 01/15/25 05:18 Chemistry Test 01/15/25 05:18 Calcium Level 8.8 mg/dL (8.7-10.4) Microbiology Microbiology Date/Time Source Procedure Growth Status 01/10/25 15:18 Blood Blood Culture - Final Enterococcus faecium - VRE Complete 01/10/25 12:45 Ascities Fluid Gram Stain - Final Resulted 01/10/25 12:45 Ascities Fluid Body Fluid Culture - Preliminary Resulted 01/09/25 14:00 Sputum Gram Stain - Final Complete 01/09/25 14:00 Respiratory Culture - Final Presumptive Lisa albicans Complete 01/09/25 05:00 Nose MRSA Screen - Final Complete Labs and/or images reviewed: Labs reviewed by me, Image(s) reviewed by me Assessment/Plan Assessment/Plan Plan: -septic shock -cirrhosis with severe ascites -ESRD with hemodialysis -NSTEMI, probably type secondary to recent pericardiocentesis -legally blind -anemia of chronic disease - dyslipidemia -paroxysmal atrial fibrillation -possible infiltration of norepinephrine to right upper extremity with extravasation Plan: Events: No events overnight. Culture came back positive for VRE. Antibiotics changed to Zyvox. Continues to be on norepinephrine drip, with decreased use. Patient clinically states she was feeling better. Plans for HD today. -continue vasopressor therapy -pain management: Add gabapentin. -echocardiogram: Results reviewed -nephrology consultation: Recommendations reviewed -repeat labs in a.m. Critical care time spent with patient discussing and formulating plan of care: 40 minutes. This does not include time spent performing procedures. This medical document was created using an electronic medical record system with [employer] computerized dictation system. Although this document has been carefully reviewed, there may still be some phonetic and typographical errors. These areas are purely typographical due to imperfections of the software programs, and do not reflect any compromise in the patient's medical care. Plan discussed with: Patient, Other (RN) My Orders Orders - PAVEL GUAMAN NP Procedure Category Date Status Time Petrolatum PHA 01/14/25 In Process (Emollient) (Vaseline 10:30 Linezolid 600mg/300ml PHA 01/14/25 In Process (Zyvox) 16:00 Chest Portable XY 01/16/25 Logged 04:00 Date of Service: Jan 15, 2025 Billing Provider: PAVEL GUAMAN NP Common Visit Codes: [id number] CARE 30-74 MIN PAVEL GUAMAN NP Jan 15, 2025 09:26
[2025-01-15] MEDS: SODIUM CHL 0.9% 1000 ML BAG XX ONE (10:30)
--- NOTE | 2025-01-15 11:06 | DVHPN2 ---
Progress Note Date Seen: Jan 15, 2025 Medical Necessity Reason Pt with a Central, PICC or Fol: Yes The following are medically ne: Central Line Objective vital signs Vital Sign Date Time Temp Pulse Resp B/P (MAP) Pulse Ox O2 Delivery O2 Flow Rate FiO2 01/15/25 08:00 97.9 80 10 101/55 (70) 100 97.9 01/15/25 06:00 Nasal Cannula* 5 40 Total Intake and Output 01/14/25 01/14/25 01/15/25 15:00 23:00 07:00 Intake Total 82.814 ml 890.00 ml 84.50 ml Output Total 0 ml Balance 82.814 ml 890.00 ml 84.50 ml medications Current Medications Medications Dose Ordered Sig/Honey Route Start Time Stop Time Status Last Admin Dose Admin Diagnostic Test (Pha) 1 strip Q6HR 01/09/25 06:00 01/15/25 05:33 1 STRIP Insulin Human Regular Q6HR SC 01/09/25 06:00 01/14/25 18:13 2 UNITS Dextrose 50 ml UD PRN IV 01/09/25 00:30 Pantoprazole Sodium 40 mg DAILY IV 01/10/25 10:00 01/15/25 09:37 40 MG Acetaminophen/ Hydrocodone Bitart 1 tab Q8HPRN PRN PO 01/09/25 10:30 01/12/25 22:06 1 TAB Ondansetron HCl 4 mg Q8HPRN PRN IV 01/09/25 10:30 Acetaminophen 650 mg Q6HP PRN PO 01/09/25 10:30 01/11/25 00:19 650 MG Ferrous Sulfate 325 mg BIDWM PO 01/10/25 18:00 01/15/25 09:35 325 MG Amiodarone HCl 200 mg DAILY PO 01/10/25 10:00 01/15/25 09:35 200 MG Sevelamer HCl 800 mg TIDWM PO 01/10/25 18:00 01/15/25 09:35 800 MG Gabapentin 100 mg TID PO 01/11/25 14:00 01/15/25 05:40 100 MG Norepinephrine Bitartrate 32 mg/ Sodium Chloride 250 ml @ 0.938 mls/ hr Q24H IV 01/12/25 12:00 01/13/25 17:28 2.813 MLS/HR Midodrine 5 mg TID@0600,1200,1800 PO 01/12/25 18:00 01/15/25 10:48 5 MG Emollient Ointment 1 applic PRN PRN TOP 01/14/25 10:30 Linezolid 300 ml @ 150 mls/hr Q12HR@0400,1600 IV 01/14/25 16:00 01/15/25 05:33 150 MLS/HR Albumin Human 100 ml @ 100 mls/hr PRN PRN IV 01/15/25 10:30 Examination: GENERAL:Abnormal, LUNGS:Abnormal, CVS:Abnormal, ABDOMEN:Abnormal laboratory and microbiology Laboratory Tests 01/15/25 05:18 01/14/25 05:42 Test 01/15/25 05:18 Range/Units Serum Glucose 101 74-106 mg/dL Microbiology Date/Time Source Procedure Growth Status 01/10/25 15:18 Blood Blood Culture - Final Enterococcus faecium - VRE Complete 01/10/25 12:45 Ascities Fluid Gram Stain - Final Resulted 01/10/25 12:45 Ascities Fluid Body Fluid Culture - Preliminary Resulted 01/09/25 14:00 Sputum Gram Stain - Final Complete 01/09/25 14:00 Respiratory Culture - Final Presumptive Lisa albicans Complete 01/09/25 05:00 Nose MRSA Screen - Final Complete Problem List/Assessment/Plan Problem List/Assessment/Plan Admitted for fluid overload in the setting of refractory ascites Shock cardiogenic versus septic End-stage renal disease on hemodialysis Heart failure with recent pericardial drainage due to recurrent pericardial effusions Refractory ascites due to cirrhosis with frequent paracentesis Diabetes hyperkalemia VRE bacteremia HD today while on levophed, IV albumin midodrine po Cardiology- posterior pericardial effusion RV failure s/p paracentesis 01/10/25 renal diet Plan discussed with: Patient My Orders My Orders Orders - MARLEY LARSEN MD Procedure Category Date Status Time Hemodialysis Orders ORDERS 01/15/25 Transmitted 07:00 Dialysis Nursing REGINALD 01/15/25 In Process Message 07:00 Document Fluid Input REGINALD 01/15/25 In Process And Outpu 07:00 Communication Order ORDERS 01/14/25 Transmitted 16:43 Albumin 25% (Albutein) PHA 01/15/25 In Process 10:30 Dietary Evaluation Review Comments: 1) Nepro carb steady 240ml BID (ordered per [facility] protocol) 2) Neprhro-Kaela 1 tab daily 3) Continue current plan of care Expected Outcomes/Goals: To meet >75% estimated needs Fu 3-5 days MARLEY LARSEN MD Jan 15, 2025 11:06
[2025-01-15] MEDS: ALBUMIN 25% 100 ML IV PRN (12:18)
[2025-01-15] MEDS: AMIODARONE 360mg/200mL PREMIX 200 ML IV ONE (18:02)
--- NOTE | 2025-01-15 22:56 | DVHPN2 ---
Progress Note - Dictate Date Seen: Jan 15, 2025 Medical Necessity Reason Pt with a Central, PICC or Fol: No The following are medically ne: Central Line Subjective Patient seen and examined at bedside. Remains on supplemental oxygen Overnight events reviewed. vital signs Vital Sign Date Time Temp Pulse Resp B/P (MAP) Pulse Ox O2 Delivery O2 Flow Rate FiO2 01/15/25 20:00 15 100 Nasal Cannula* 5 40 01/15/25 20:00 114 01/15/25 19:30 99/66 (77) 01/15/25 16:00 97.8 97.8 Total Intake and Output 01/14/25 01/14/25 01/15/25 15:00 23:00 07:00 Intake Total 82.814 ml 890.00 ml 87.313 ml Output Total 0 ml Balance 82.814 ml 890.00 ml 87.313 ml medications Current Medications Medications Dose Ordered Sig/Honey Route Start Time Stop Time Status Last Admin Dose Admin Diagnostic Test (Pha) 1 strip Q6HR 01/09/25 06:00 01/15/25 18:03 1 STRIP Insulin Human Regular Q6HR SC 01/09/25 06:00 01/15/25 18:11 3 UNITS Dextrose 50 ml UD PRN IV 01/09/25 00:30 Pantoprazole Sodium 40 mg DAILY IV 01/10/25 10:00 01/15/25 09:37 40 MG Acetaminophen/ Hydrocodone Bitart 1 tab Q8HPRN PRN PO 01/09/25 10:30 01/15/25 14:39 1 TAB Ondansetron HCl 4 mg Q8HPRN PRN IV 01/09/25 10:30 Acetaminophen 650 mg Q6HP PRN PO 01/09/25 10:30 01/11/25 00:19 650 MG Ferrous Sulfate 325 mg BIDWM PO 01/10/25 18:00 01/15/25 18:03 325 MG Amiodarone HCl 200 mg DAILY PO 01/10/25 10:00 01/15/25 09:35 200 MG Sevelamer HCl 800 mg TIDWM PO 01/10/25 18:00 01/15/25 18:03 800 MG Gabapentin 100 mg TID PO 01/11/25 14:00 01/15/25 21:49 100 MG Norepinephrine Bitartrate 32 mg/ Sodium Chloride 250 ml @ 0.938 mls/ hr Q24H IV 01/12/25 12:00 01/13/25 17:28 2.813 MLS/HR Midodrine 5 mg TID@0600,1200,1800 PO 01/12/25 18:00 01/15/25 18:03 5 MG Emollient Ointment 1 applic PRN PRN TOP 01/14/25 10:30 Linezolid 300 ml @ 150 mls/hr Q12HR@0400,1600 IV 01/14/25 16:00 01/15/25 18:02 150 MLS/HR Albumin Human 100 ml @ 100 mls/hr PRN PRN IV 01/15/25 10:30 01/15/25 12:18 100 MLS/HR objective Gen.: Patient lying in bed in no apparent distress. On supplemental oxygen. Head: Normocephalic, atraumatic. Eyes: EOMI/PERRLA. Ears: Normal hearing. Normal anatomy. Neck/trachea: Trachea midline, supple. Nose: Normal external anatomy. Mouth: Moist mucous membranes. Chest: Decreased air entry bilaterally. No wheezing or rhonchi. Cardiovascular: Positive S1, positive S2. Regular rate and rhythm. Abdomen: Positive bowel sounds in all 4 quadrants. Soft, non-tender, non- distended. : Deferred. Rectal: Deferred. Skin: Warm, dry. Intact. Extremities: 2+ radial pulses bilaterally. No lower extremity edema. Neuro: Awake, alert, oriented x3. No gross motor or sensory deficits. Cranial nerves II through XII intact. Gait not assessed. laboratory and microbiology Laboratory Tests 01/15/25 05:18 01/14/25 05:42 Test 01/15/25 05:18 Range/Units Serum Glucose 101 74-106 mg/dL Assessment/Plan Impression: Acute hypoxic respiratory failure Dependence on supplemental oxygen End-stage renal disease, on hemodialysis Heart failure with recent pericardial window due to recurrent pericardial effusions Refractory ascites due to cirrhosis with frequent paracentesis Diabetes mellitus Non-ST elevation [place] Events: Remains on supplemental oxygen, 5 LPM NC Taper O2 as tolerated On pressors for hemodynamic support Levophed 8 mcg/min Titrate to keep mean arterial pressure greater than 65 mmHg. Plan for limited chest ultrasound on Tuesday. Plan for amiodarone drip for junctional rhythm. Continue antibiotics Blood cx positive for VRE. Incentive spirometry Continue albumin HD per Nephrology Monitor renal function Protonix for GI prophylaxis S/p paracentesis on 01/13/25- 3.3 liters of ascitic fluid removed Received albumin post paracentesis. See separate procedure note for details. Labs and imaging reviewed. Rest of plan as noted below. Plan: Supplemental oxygen Titrate to keep O2 sats above 92%. S/p paracentesis on 01/10/25 Head of bed elevation Aspiration precautions Continue antibiotics Amiodarone PO On midodrine Pressors as necessary for hemodynamic support Titrate to keep mean arterial pressure greater than 65 mmHg. Hemodialysis per Nephrology Follow up Nephrology recommendations Monitor renal function. Monitor electrolytes. Supplement as necessary. Monitor ins and outs. DVT prophylaxis. Prognosis: Poor given patient's multiple co-morbidities. Condition: Critical Rest of plan per hospitalist and other consultants. A total of 35 minutes of critical care time was spent reviewing the patient record, examining the patient, making a diagnostic and therapeutic plan, discussing this plan with the medical personnel, following up on diagnostic studies and following the patient for clinical stability excluding any and all procedures. At least 50% of this time was spent in direct, [id number] contact. Thank you, ELLIE Moreland, for allowing me to participate in this patient's care. Further recommendations will depend on the patient's clinical course. Please do not hesitate to contact me if you have any questions or concerns. This medical document was created using an electronic medical record system with [employer] computerized dictation system. Although these documentations are being carefully reviewed, there may still be some phonetic and typographical changes. The errors are purely typographical, due to imperfection on the software program, and do not reflect any compromise in the patient's medical care. Dietary Evaluation Review Comments: 1) Nepro carb steady 240ml BID (ordered per ONS protocol) 2) Neprhro-Kaela 1 tab daily 3) Continue current plan of care Expected Outcomes/Goals: To meet >75% estimated needs Fu 3-5 days Plan discussed with: Other (LAVERNE Ma) Critical Care Time(min): 35 MAYE HEATH MD Jan 15, 2025 22:56
[2025-01-16] VITALS (95 sets, daily range): BP systolic 79–116; BP diastolic 41–82; PULSE 71–120; RESP 7–30; TEMP 98.3–98.6; O2SAT 89–100
[2025-01-16] MEDS: AMIODARONE 360mg/200mL PREMIX 200 ML IV SCH (00:01)
--- NOTE | 2025-01-16 04:14 | DVH ---
EXAM: XY CHEST PORTABLE DATE OF SERVICE: 01/16/2025 03:56 AM ORDERING PHYSICIAN: PAVEL GUAMAN REASON FOR EXAM: chf TECHNIQUE: Frontal view of the chest. COMPARISON: XY CHEST PORTABLE on DOS: 01/11/25, XY CHEST PORTABLE on DOS: 01/08/25, CHEST PORTABLE on D OS: 09/16/22, XY CHEST PORTABLE on DOS: 01/11/25 FINDINGS: LUNGS AND PLEURAL SPACES: See below. HEART: Cardiomegaly with pulmonary congestion and edema. Superimposed pneumonia cannot be excluded. MEDIASTINUM: Unremarkable. Normal mediastinal contour. IMPRESSION: Cardiomegaly with pulmonary congestion and edema. Superimposed pneumonia cannot be excluded. End of Report
[2025-01-16 05:11] LABS: Basophils # (auto) 0.1 10 ^3/uL (0-0.2); Basophils % (auto) 1.1 % (0.0-2.0); Eosinophils # (auto) 0.4 10 ^3/uL (0-0.8); Eosinophils % (auto) 3.8 % (0.0-7.0); Hematocrit 33.3 % (36.0-46.0); Hemoglobin 10.9 g/dL (12.2-16.2); Lymphocytes # (auto) 0.7 10 ^3/uL (0.4-5.4); Lymphocytes % (auto) 6.7 % (10.0-50.0); Mean Corpuscular Hemoglobin 31.8 pg (28.0-32.0); Mean Corpuscular Hgb Conc. 32.7 g/dL (32.0-36.0); Mean Corpuscular Volume 97.2 fL (80.0-100.0); Monocytes # (auto) 1.7 10 ^3/uL (0-1.3); Monocytes % (auto) 15.9 % (0.0-12.0); Neutrophils # (auto) 7.8 10 ^3/uL (1.6-8.6); Neutrophils % (auto) 72.5 % (37.0-80.0); Nucleated Red Blood Cells % 0.1 %; Platelet Count (auto) 129 10^3/uL (140-450); Red Blood Cells 3.43 10^6/uL (4.0-5.20); Red Cell Distribution Width 16.6 % (11.8-14.3); White Blood Cell 10.7 10^3/uL (4.4-10.8)
[2025-01-16 05:13] LABS: Potassium 3.7 mmol/L (3.5-5.1)
[2025-01-16 05:14] LABS: Anion Gap 12 (5-15); Carbon Dioxide 27 mmol/L (20-31)
[2025-01-16 05:15] LABS: Calcium 8.9 mg/dL (8.7-10.4)
[2025-01-16 05:19] LABS: BUN/Creatinine Ratio 6.2 (10.0-20.0); Blood Urea Nitrogen 21 mg/dL (9-23); Chloride 95 mmol/L (98-107); Sodium 134 mmol/L (136-145)
[2025-01-16 05:20] LABS: Glucose 128 mg/dL (74-106)
--- NOTE | 2025-01-16 08:11 | ECG ---
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
--- NOTE | 2025-01-16 10:03 | DVHPN2 ---
Subjective Patient denies any symptoms Reviewed: Care Plan, H&P, Labs, Medications Changes from previous H/P or p: No Changes General: Per HPI Objective Vitals Vital Signs Date Time Temp Pulse Resp B/P (MAP) Pulse Ox O2 Delivery O2 Flow Rate FiO2 01/16/25 09:15 119 10 92/55 (67) 98 01/16/25 08:00 98.4 98.4 01/16/25 08:00 Nasal Cannula* 2 28 Intake/Output Intake and Output 01/16/25 07:00 Intake Total 2661.917 ml Output Total 0 ml Balance 2661.917 ml Intake Oral 1560 ml IV Total 1101.917 ml Output Urine Total 0 ml # Bowel Movements 1 General Appearance: Alert, Oriented X3, Cooperative, No acute distress HEENT: Atraumatic, PERRLA, Other (Blind) Lungs: Clear to auscultation, Normal air movement Cardiovascular: Normal S1, Normal S2 Back: Flank Tenderness, Midline Tenderness Neuro: Normal gait, Normal speech, Cranial nerves 3-12 NL Skin: Dry, Intact Psych/Mental Status: Mental status NL, Mood NL Medications Current Medications Medications Dose Ordered Sig/Honey Route Start Time Stop Time Status Last Admin Dose Admin Diagnostic Test (Pha) 1 strip Q6HR 01/09/25 06:00 01/16/25 05:55 1 STRIP Insulin Human Regular Q6HR SC 01/09/25 06:00 01/16/25 06:23 2 UNITS Dextrose 50 ml UD PRN IV 01/09/25 00:30 Pantoprazole Sodium 40 mg DAILY IV 01/10/25 10:00 01/15/25 09:37 40 MG Acetaminophen/ Hydrocodone Bitart 1 tab Q8HPRN PRN PO 01/09/25 10:30 01/15/25 14:39 1 TAB Ondansetron HCl 4 mg Q8HPRN PRN IV 01/09/25 10:30 Acetaminophen 650 mg Q6HP PRN PO 01/09/25 10:30 01/11/25 00:19 650 MG Ferrous Sulfate 325 mg BIDWM PO 01/10/25 18:00 01/16/25 09:05 325 MG Amiodarone HCl 200 mg DAILY PO 01/10/25 10:00 01/15/25 09:35 200 MG Sevelamer HCl 800 mg TIDWM PO 01/10/25 18:00 01/16/25 09:05 800 MG Gabapentin 100 mg TID PO 01/11/25 14:00 01/16/25 05:56 100 MG Norepinephrine Bitartrate 32 mg/ Sodium Chloride 250 ml @ 0.938 mls/ hr Q24H IV 01/12/25 12:00 01/16/25 09:07 3.75 MLS/HR Midodrine 5 mg TID@0600,1200,1800 PO 01/12/25 18:00 01/16/25 05:56 5 MG Emollient Ointment 1 applic PRN PRN TOP 01/14/25 10:30 Linezolid 300 ml @ 150 mls/hr Q12HR@0400,1600 IV 01/14/25 16:00 01/16/25 03:56 150 MLS/HR Albumin Human 100 ml @ 100 mls/hr PRN PRN IV 01/15/25 10:30 01/15/25 12:18 100 MLS/HR Laboratory Results Laboratory Tests 01/16/25 04:40 Chemistry Test 01/16/25 04:40 Calcium Level 8.9 mg/dL (8.7-10.4) Microbiology Microbiology Date/Time Source Procedure Growth Status 01/10/25 15:18 Blood Blood Culture - Final Enterococcus faecium - VRE Complete 01/10/25 12:45 Ascities Fluid Gram Stain - Final Complete 01/10/25 12:45 Ascities Fluid Body Fluid Culture - Final Complete 01/09/25 14:00 Sputum Gram Stain - Final Complete 01/09/25 14:00 Respiratory Culture - Final Presumptive Lisa albicans Complete 01/09/25 05:00 Nose MRSA Screen - Final Complete Labs and/or images reviewed: Labs reviewed by me, Image(s) reviewed by me Assessment/Plan Assessment/Plan Plan: -septic shock -cirrhosis with severe ascites -ESRD with hemodialysis -NSTEMI, probably type secondary to recent pericardiocentesis -legally blind -anemia of chronic disease - dyslipidemia -paroxysmal atrial fibrillation -possible infiltration of norepinephrine to right upper extremity with extravasation. Plan: Events: Patient went into junctional tachycardia yesterday. Patient was placed on amiodarone drip. Continues to be tachycardic with a heart rate of 110. White blood cell count improving. -continue Zyvox. -continue vasopressor therapy -pain management: Add gabapentin. -echocardiogram: Results reviewed -nephrology consultation: Recommendations reviewed -repeat labs in a.m. Critical care time spent with patient discussing and formulating plan of care: 40 minutes. This does not include time spent performing procedures. This medical document was created using an electronic medical record system with [employer] system. Although this document has been carefully reviewed, there may still be some phonetic and typographical errors. These areas are purely typographical due to imperfections of the software programs, and do not reflect any compromise in the patient's medical care. Plan discussed with: Patient, Other (RN) My Orders Orders - PAVEL GUAMAN NP Procedure Category Date Status Time Blood Culture ANAMARIA 01/17/25 Verified 04:00 Basic Metabolic Panel LAB 01/17/25 Verified 04:00 Complete Blood Count LAB 01/17/25 Verified 04:00 Date of Service: Jan 16, 2025 Billing Provider: PAVEL GUAMAN NP Common Visit Codes: [id number] CARE 30-74 MIN PAVEL GUAMAN NP Jan 16, 2025 10:03
[2025-01-16] MEDS: B-COMPLEX W/ C & FOLIC ACID(NEPHROVITE TAB) PO SCH (11:59)
--- NOTE | 2025-01-16 17:45 | DVHPN2 ---
Progress Note Date Seen: Jan 16, 2025 Medical Necessity Reason Pt with a Central, PICC or Fol: No The following are medically ne: Central Line Subjective Patient reports: Feels better Objective vital signs Vital Sign Date Time Temp Pulse Resp B/P (MAP) Pulse Ox O2 Delivery O2 Flow Rate FiO2 01/16/25 16:00 12 96 Nasal Cannula* 2 28 01/16/25 14:30 87 95/57 (70) 01/16/25 12:00 98.6 98.6 Total Intake and Output 01/15/25 01/15/25 01/16/25 15:00 23:00 07:00 Intake Total 30.939 ml 1756.65 ml 874.328 ml Output Total 0 ml 0 ml Balance 30.939 ml 1756.65 ml 874.328 ml medications Current Medications Medications Dose Ordered Sig/Honey Route Start Time Stop Time Status Last Admin Dose Admin Diagnostic Test (Pha) 1 strip Q6HR 01/09/25 06:00 01/16/25 12:09 1 STRIP Insulin Human Regular Q6HR SC 01/09/25 06:00 01/16/25 06:23 2 UNITS Dextrose 50 ml UD PRN IV 01/09/25 00:30 Pantoprazole Sodium 40 mg DAILY IV 01/10/25 10:00 01/16/25 10:40 40 MG Acetaminophen/ Hydrocodone Bitart 1 tab Q8HPRN PRN PO 01/09/25 10:30 01/15/25 14:39 1 TAB Ondansetron HCl 4 mg Q8HPRN PRN IV 01/09/25 10:30 Acetaminophen 650 mg Q6HP PRN PO 01/09/25 10:30 01/11/25 00:19 650 MG Ferrous Sulfate 325 mg BIDWM PO 01/10/25 18:00 01/16/25 09:05 325 MG Sevelamer HCl 800 mg TIDWM PO 01/10/25 18:00 01/16/25 12:01 800 MG Gabapentin 100 mg TID PO 01/11/25 14:00 01/16/25 13:45 100 MG Norepinephrine Bitartrate 32 mg/ Sodium Chloride 250 ml @ 0.938 mls/ hr Q24H IV 01/12/25 12:00 01/16/25 09:07 3.75 MLS/HR Midodrine 5 mg TID@0600,1200,1800 PO 01/12/25 18:00 01/16/25 12:00 5 MG Emollient Ointment 1 applic PRN PRN TOP 01/14/25 10:30 Linezolid 300 ml @ 150 mls/hr Q12HR@0400,1600 IV 01/14/25 16:00 01/16/25 16:17 150 MLS/HR Albumin Human 100 ml @ 100 mls/hr PRN PRN IV 01/15/25 10:30 01/15/25 12:18 100 MLS/HR Multivit/Ca Carb/ B Cmplx/FA/Prenat 1 tab DAILY PO 01/16/25 10:00 01/16/25 11:59 1 TAB Examination: GENERAL:Normal, CVS:Abnormal laboratory and microbiology Laboratory Tests 01/16/25 04:40 Test 01/16/25 04:40 Range/Units Serum Glucose 128 H 74-106 mg/dL Microbiology Date/Time Source Procedure Growth Status 01/10/25 15:18 Blood Blood Culture - Final Enterococcus faecium - VRE Complete 01/10/25 12:45 Ascities Fluid Gram Stain - Final Complete 01/10/25 12:45 Ascities Fluid Body Fluid Culture - Final Complete 01/09/25 14:00 Sputum Gram Stain - Final Complete 01/09/25 14:00 Respiratory Culture - Final Presumptive Lisa albicans Complete 01/09/25 05:00 Nose MRSA Screen - Final Complete Problem List/Assessment/Plan Problem List/Assessment/Plan Admitted for fluid overload in the setting of refractory ascites Shock cardiogenic versus septic End-stage renal disease on hemodialysis Heart failure with recent pericardial drainage due to recurrent pericardial effusions Refractory ascites due to cirrhosis with frequent paracentesis Diabetes hyperkalemia VRE bacteremia HD tomorow while on levophed, IV albumin midodrine po Cardiology- posterior pericardial effusion RV failure s/p paracentesis 01/10/25 renal diet Plan discussed with: Patient Dietary Evaluation Review Comments: 1) Nepro carb steady 240ml BID (ordered per ONS protocol) 2) Neprhro-Kaela 1 tab daily 3) Continue current plan of care Expected Outcomes/Goals: To meet >75% estimated needs Fu 3-5 days MARLEY LARSEN MD Jan 16, 2025 17:45
--- NOTE | 2025-01-16 22:21 | DVHPN2 ---
Progress Note - Dictate Date Seen: Jan 16, 2025 Medical Necessity Reason Pt with a Central, PICC or Fol: No The following are medically ne: Central Line Subjective Patient seen and examined at bedside. Remains on supplemental oxygen Overnight events reviewed. vital signs Vital Sign Date Time Temp Pulse Resp B/P (MAP) Pulse Ox O2 Delivery O2 Flow Rate FiO2 01/16/25 20:00 12 94 Nasal Cannula* 2 28 01/16/25 20:00 88 01/16/25 18:15 110/61 (77) 01/16/25 16:00 98.6 98.6 Total Intake and Output 01/15/25 01/15/25 01/16/25 15:00 23:00 07:00 Intake Total 30.939 ml 1756.65 ml 874.328 ml Output Total 0 ml 0 ml Balance 30.939 ml 1756.65 ml 874.328 ml medications Current Medications Medications Dose Ordered Sig/Honey Route Start Time Stop Time Status Last Admin Dose Admin Diagnostic Test (Pha) 1 strip Q6HR 01/09/25 06:00 01/16/25 18:00 1 STRIP Insulin Human Regular Q6HR SC 01/09/25 06:00 01/16/25 18:32 3 UNITS Dextrose 50 ml UD PRN IV 01/09/25 00:30 Pantoprazole Sodium 40 mg DAILY IV 01/10/25 10:00 01/16/25 10:40 40 MG Acetaminophen/ Hydrocodone Bitart 1 tab Q8HPRN PRN PO 01/09/25 10:30 01/15/25 14:39 1 TAB Ondansetron HCl 4 mg Q8HPRN PRN IV 01/09/25 10:30 Acetaminophen 650 mg Q6HP PRN PO 01/09/25 10:30 01/11/25 00:19 650 MG Ferrous Sulfate 325 mg BIDWM PO 01/10/25 18:00 01/16/25 17:42 325 MG Sevelamer HCl 800 mg TIDWM PO 01/10/25 18:00 01/16/25 17:43 800 MG Gabapentin 100 mg TID PO 01/11/25 14:00 01/16/25 21:50 100 MG Norepinephrine Bitartrate 32 mg/ Sodium Chloride 250 ml @ 0.938 mls/ hr Q24H IV 01/12/25 12:00 01/16/25 09:07 3.75 MLS/HR Midodrine 5 mg TID@0600,1200,1800 PO 01/12/25 18:00 01/16/25 17:43 5 MG Emollient Ointment 1 applic PRN PRN TOP 01/14/25 10:30 Linezolid 300 ml @ 150 mls/hr Q12HR@0400,1600 IV 01/14/25 16:00 01/16/25 16:17 150 MLS/HR Albumin Human 100 ml @ 100 mls/hr PRN PRN IV 01/15/25 10:30 01/15/25 12:18 100 MLS/HR Multivit/Ca Carb/ B Cmplx/FA/Prenat 1 tab DAILY PO 01/16/25 10:00 01/16/25 11:59 1 TAB objective Gen.: Patient lying in bed in no apparent distress. On supplemental oxygen. Head: Normocephalic, atraumatic. Eyes: EOMI/PERRLA. Ears: Normal hearing. Normal anatomy. Neck/trachea: Trachea midline, supple. Nose: Normal external anatomy. Mouth: Moist mucous membranes. Chest: Decreased air entry bilaterally. No wheezing or rhonchi. Cardiovascular: Positive S1, positive S2. Regular rate and rhythm. Abdomen: Positive bowel sounds in all 4 quadrants. Soft, non-tender, non- distended. : Deferred. Rectal: Deferred. Skin: Warm, dry. Intact. Extremities: 2+ radial pulses bilaterally. No lower extremity edema. Neuro: Awake, alert, oriented x3. No gross motor or sensory deficits. Cranial nerves II through XII intact. Gait not assessed. laboratory and microbiology Laboratory Tests 01/16/25 04:40 Test 01/16/25 04:40 Range/Units Serum Glucose 128 H 74-106 mg/dL Assessment/Plan Impression: Acute hypoxic respiratory failure Dependence on supplemental oxygen End-stage renal disease, on hemodialysis Heart failure with recent pericardial window due to recurrent pericardial effusions Refractory ascites due to cirrhosis with frequent paracentesis Diabetes mellitus Non-ST elevation [place] Events: Remains on supplemental oxygen On 5 LPM --> 2 LPM NC Taper O2 as tolerated Improved O2 requirements CXR reviewed, demonstrates cardiomegaly with pulmonary congestion and edema. Superimposed pneumonia cannot be excluded On pressors for hemodynamic support Levophed 8 mcg/min Titrate to keep mean arterial pressure greater than 65 mmHg. On midodrine TID - monitor BP. Amiodarone drip for junctional rhythm. Continue antibiotics Blood cx positive for VRE. Incentive spirometry HD per Nephrology - plan for HD in the AM. Monitor renal function Accu-Cheks, ISS Protonix for GI prophylaxis Monitor hemoglobin S/p paracentesis on 01/13/25- 3.3 liters of ascitic fluid removed Received albumin post paracentesis. See separate procedure note for details. Labs and imaging reviewed. Rest of plan as noted below. Plan: Supplemental oxygen Titrate to keep O2 sats above 92%. S/p paracentesis on 01/10/25 Head of bed elevation Aspiration precautions Continue antibiotics Amiodarone On midodrine Pressors as necessary for hemodynamic support Titrate to keep mean arterial pressure greater than 65 mmHg. Hemodialysis per Nephrology Follow up Nephrology recommendations Monitor renal function. Monitor electrolytes. Supplement as necessary. Monitor ins and outs. DVT prophylaxis. Prognosis: Poor given patient's multiple co-morbidities. Condition: Critical Rest of plan per hospitalist and other consultants. A total of 35 minutes of critical care time was spent reviewing the patient record, examining the patient, making a diagnostic and therapeutic plan, discussing this plan with the medical personnel, following up on diagnostic studies and following the patient for clinical stability excluding any and all procedures. At least 50% of this time was spent in direct, [id number] contact. Thank you, ELLIE Moreland, for allowing me to participate in this patient's care. Further recommendations will depend on the patient's clinical course. Please do not hesitate to contact me if you have any questions or concerns. This medical document was created using an electronic medical record system with [employer] dictation system. Although these documentations are being carefully reviewed, there may still be some phonetic and typographical changes. The errors are purely typographical, due to imperfection on the software program, and do not reflect any compromise in the patient's medical care. Dietary Evaluation Review Comments: 1) Nepro carb steady 240ml BID (ordered per ONS protocol) 2) Neprhro-Kaela 1 tab daily 3) Continue current plan of care Expected Outcomes/Goals: To meet >75% estimated needs Fu 3-5 days Plan discussed with: Other (LAVERNE López) Critical Care Time(min): 35 MAYE HEATH MD Jan 16, 2025 22:21
[2025-01-17] VITALS (77 sets, daily range): BP systolic 78–116; BP diastolic 41–75; PULSE 75–127; RESP 8–20; TEMP 97.8–98.3; O2SAT 76–100
[2025-01-17 04:54] LABS: Basophils # (auto) 0.1 10 ^3/uL (0-0.2); Basophils % (auto) 1.3 % (0.0-2.0); Eosinophils # (auto) 0.5 10 ^3/uL (0-0.8); Eosinophils % (auto) 4.3 % (0.0-7.0); Hematocrit 34.4 % (36.0-46.0); Hemoglobin 11.2 g/dL (12.2-16.2); Lymphocytes % (auto) 9.2 % (10.0-50.0); Mean Corpuscular Hemoglobin 31.7 pg (28.0-32.0); Mean Corpuscular Hgb Conc. 32.7 g/dL (32.0-36.0); Mean Corpuscular Volume 96.9 fL (80.0-100.0); Monocytes # (auto) 1.6 10 ^3/uL (0-1.3); Neutrophils % (auto) 71.2 % (37.0-80.0); Nucleated Red Blood Cells % 0.2 %; Platelet Count (auto) 150 10^3/uL (140-450); Red Blood Cells 3.54 10^6/uL (4.0-5.20); Red Cell Distribution Width 16.1 % (11.8-14.3); White Blood Cell 11.3 10^3/uL (4.4-10.8)
[2025-01-17 05:09] LABS: Anion Gap 12 (5-15); Carbon Dioxide 26 mmol/L (20-31); Chloride 92 mmol/L (98-107); Sodium 130 mmol/L (136-145)
[2025-01-17 05:10] LABS: Calcium 8.7 mg/dL (8.7-10.4)
[2025-01-17 05:14] LABS: BUN/Creatinine Ratio 6.6 (10.0-20.0); Glucose 85 mg/dL (74-106)
[2025-01-17 05:15] LABS: Blood Urea Nitrogen 26 mg/dL (9-23)
--- NOTE | 2025-01-17 08:41 | ECG ---
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
[2025-01-17] MEDS: FLUCONAZOLE 100 MG TAB PO SCH (10:15)
--- NOTE | 2025-01-17 10:36 | DVHPN2 ---
Subjective Patient denies any symptoms Reviewed: Care Plan, H&P, Labs, Medications Changes from previous H/P or p: No Changes General: Per HPI Objective Vitals Vital Signs Date Time Temp Pulse Resp B/P (MAP) Pulse Ox O2 Delivery O2 Flow Rate FiO2 01/17/25 07:00 85 11 105/61 (76) 97 01/17/25 06:00 Nasal Cannula* 2 28 01/17/25 04:00 98.3 98.3 Intake/Output Intake and Output 01/17/25 07:00 Intake Total 1799.941 ml Output Total 0 ml Balance 1799.941 ml Intake Oral 700 ml IV Total 1099.941 ml Output Urine Total 0 ml General Appearance: Alert, Oriented X3, Cooperative, No acute distress HEENT: Atraumatic, PERRLA, Other (Blind) Lungs: Clear to auscultation, Normal air movement Cardiovascular: Normal S1, Normal S2 Back: Flank Tenderness, Midline Tenderness Neuro: Normal gait, Normal speech, Cranial nerves 3-12 NL Skin: Dry, Intact Psych/Mental Status: Mental status NL, Mood NL Medications Current Medications Medications Dose Ordered Sig/Honey Route Start Time Stop Time Status Last Admin Dose Admin Diagnostic Test (Pha) 1 strip Q6HR 01/09/25 06:00 01/17/25 06:07 1 STRIP Insulin Human Regular Q6HR SC 01/09/25 06:00 01/16/25 23:32 4 UNITS Dextrose 50 ml UD PRN IV 01/09/25 00:30 Pantoprazole Sodium 40 mg DAILY IV 01/10/25 10:00 01/16/25 10:40 40 MG Acetaminophen/ Hydrocodone Bitart 1 tab Q8HPRN PRN PO 01/09/25 10:30 01/17/25 07:05 1 TAB Ondansetron HCl 4 mg Q8HPRN PRN IV 01/09/25 10:30 Acetaminophen 650 mg Q6HP PRN PO 01/09/25 10:30 01/11/25 00:19 650 MG Ferrous Sulfate 325 mg BIDWM PO 01/10/25 18:00 01/17/25 08:00 325 MG Sevelamer HCl 800 mg TIDWM PO 01/10/25 18:00 01/17/25 08:00 800 MG Gabapentin 100 mg TID PO 01/11/25 14:00 01/17/25 06:07 100 MG Norepinephrine Bitartrate 32 mg/ Sodium Chloride 250 ml @ 0.938 mls/ hr Q24H IV 01/12/25 12:00 01/16/25 09:07 3.75 MLS/HR Midodrine 5 mg TID@0600,1200,1800 PO 01/12/25 18:00 01/17/25 06:07 5 MG Emollient Ointment 1 applic PRN PRN TOP 01/14/25 10:30 Linezolid 300 ml @ 150 mls/hr Q12HR@0400,1600 IV 01/14/25 16:00 01/17/25 04:01 150 MLS/HR Albumin Human 100 ml @ 100 mls/hr PRN PRN IV 01/15/25 10:30 01/15/25 12:18 100 MLS/HR Multivit/Ca Carb/ B Cmplx/FA/Prenat 1 tab DAILY PO 01/16/25 10:00 01/16/25 11:59 1 TAB Amiodarone HCl 200 mg Q12HR PO 01/17/25 22:00 UNV Fluconazole 200 mg DAILY PO 01/17/25 10:15 UNV Laboratory Results Laboratory Tests 01/17/25 04:46 Chemistry Test 01/17/25 04:46 Calcium Level 8.7 mg/dL (8.7-10.4) Microbiology Microbiology Date/Time Source Procedure Growth Status 01/10/25 15:18 Blood Blood Culture - Final Enterococcus faecium - VRE Complete 01/10/25 12:45 Ascities Fluid Gram Stain - Final Complete 01/10/25 12:45 Ascities Fluid Body Fluid Culture - Final Complete 01/09/25 14:00 Sputum Gram Stain - Final Complete 01/09/25 14:00 Respiratory Culture - Final Presumptive Lisa albicans Complete 01/09/25 05:00 Nose MRSA Screen - Final Complete Labs and/or images reviewed: Labs reviewed by me, Image(s) reviewed by me Assessment/Plan Assessment/Plan Plan: -septic shock with VRE in the blood -cirrhosis with severe ascites -ESRD with hemodialysis -NSTEMI, probably type secondary to recent pericardiocentesis -legally blind -anemia of chronic disease - dyslipidemia -paroxysmal atrial fibrillation -possible infiltration of norepinephrine to right upper extremity with extravasation. Plan: Events: Patient now in sinus rhythm. Norepinephrine drip is currently at 8 micrograms/minute. Plans for hemodialysis today. -continue Zyvox, Diflucan -continue vasopressor therapy -pain management: Increase frequency of [place], continue gabapentin. -echocardiogram: Results reviewed -nephrology consultation: Recommendations reviewed -repeat labs in a.m. Critical care time spent with patient discussing and formulating plan of care: 40 minutes. This does not include time spent performing procedures. This medical document was created using an electronic medical record system with [employer] dictation system. Although this document has been carefully reviewed, there may still be some phonetic and typographical errors. These areas are purely typographical due to imperfections of the software programs, and do not reflect any compromise in the patient's medical care. Plan discussed with: Patient, Other (RN) My Orders Orders - PAVEL GUAMAN NP Procedure Category Date Status Time Amiodarone Tablet PHA 01/17/25 Logged (Cordarone Tablet) 22:00 Complete Blood Count LAB 01/18/25 Verified 08:00 Complete Blood Count LAB 01/19/25 Verified 08:00 Complete Blood Count LAB 01/20/25 Verified 08:00 Fluconazole Tablet PHA 01/17/25 Logged (Diflucan Tablet) 10:15 Date of Service: Jan 17, 2025 Billing Provider: PAVEL GUAMAN NP Common Visit Codes: [id number] CARE 30-74 MIN PAVEL GUAMAN NP Jan 17, 2025 10:36
--- NOTE | 2025-01-17 15:31 | DVHPN2 ---
Progress Note Date Seen: Jan 17, 2025 Medical Necessity Reason Pt with a Central, PICC or Fol: No The following are medically ne: Central Line Subjective Patient reports: No new complaints Objective vital signs Vital Sign Date Time Temp Pulse Resp B/P (MAP) Pulse Ox O2 Delivery O2 Flow Rate FiO2 01/17/25 14:15 90 11 103/61 (75) 93 01/17/25 14:00 Nasal Cannula* 2 28 01/17/25 04:00 98.3 98.3 Total Intake and Output 01/16/25 01/16/25 01/17/25 15:00 23:00 07:00 Intake Total 179.94 ml 661.406 ml 958.595 ml Output Total 0 ml Balance 179.94 ml 661.406 ml 958.595 ml medications Current Medications Medications Dose Ordered Sig/Honey Route Start Time Stop Time Status Last Admin Dose Admin Diagnostic Test (Pha) 1 strip Q6HR 01/09/25 06:00 01/17/25 12:05 1 STRIP Insulin Human Regular Q6HR SC 01/09/25 06:00 01/16/25 23:32 4 UNITS Dextrose 50 ml UD PRN IV 01/09/25 00:30 Pantoprazole Sodium 40 mg DAILY IV 01/10/25 10:00 01/17/25 10:00 40 MG Acetaminophen/ Hydrocodone Bitart 1 tab Q8HPRN PRN PO 01/09/25 10:30 01/17/25 07:05 1 TAB Ondansetron HCl 4 mg Q8HPRN PRN IV 01/09/25 10:30 Acetaminophen 650 mg Q6HP PRN PO 01/09/25 10:30 01/11/25 00:19 650 MG Ferrous Sulfate 325 mg BIDWM PO 01/10/25 18:00 01/17/25 08:00 325 MG Sevelamer HCl 800 mg TIDWM PO 01/10/25 18:00 01/17/25 08:00 800 MG Gabapentin 100 mg TID PO 01/11/25 14:00 01/17/25 06:07 100 MG Norepinephrine Bitartrate 32 mg/ Sodium Chloride 250 ml @ 0.938 mls/ hr Q24H IV 01/12/25 12:00 01/16/25 09:07 3.75 MLS/HR Midodrine 5 mg TID@0600,1200,1800 PO 01/12/25 18:00 01/17/25 06:07 5 MG Emollient Ointment 1 applic PRN PRN TOP 01/14/25 10:30 Linezolid 300 ml @ 150 mls/hr Q12HR@0400,1600 IV 01/14/25 16:00 01/17/25 04:01 150 MLS/HR Albumin Human 100 ml @ 100 mls/hr PRN PRN IV 01/15/25 10:30 01/15/25 12:18 100 MLS/HR Multivit/Ca Carb/ B Cmplx/FA/Prenat 1 tab DAILY PO 01/16/25 10:00 01/16/25 11:59 1 TAB Amiodarone HCl 200 mg Q12HR PO 01/17/25 22:00 Fluconazole 200 mg DAILY PO 01/17/25 10:15 Examination: GENERAL:Abnormal, CVS:Abnormal, ABDOMEN:Abnormal laboratory and microbiology Laboratory Tests 01/17/25 04:46 Test 01/17/25 04:46 Range/Units Serum Glucose 85 74-106 mg/dL Microbiology Date/Time Source Procedure Growth Status 01/10/25 15:18 Blood Blood Culture - Final Enterococcus faecium - VRE Complete 01/10/25 12:45 Ascities Fluid Gram Stain - Final Complete 01/10/25 12:45 Ascities Fluid Body Fluid Culture - Final Complete 01/09/25 14:00 Sputum Gram Stain - Final Complete 01/09/25 14:00 Respiratory Culture - Final Presumptive Lisa albicans Complete 01/09/25 05:00 Nose MRSA Screen - Final Complete Problem List/Assessment/Plan Problem List/Assessment/Plan Admitted for fluid overload in the setting of refractory ascites Shock cardiogenic versus septic End-stage renal disease on hemodialysis Heart failure with recent pericardial drainage due to recurrent pericardial effusions Refractory ascites due to cirrhosis with frequent paracentesis Diabetes hyperkalemia VRE bacteremia HD today while on levophed, IV albumin midodrine po Cardiology- posterior pericardial effusion RV failure s/p paracentesis 01/10/25 renal diet Plan discussed with: Patient My Orders My Orders Orders - MARLEY LARSEN MD Procedure Category Date Status Time Hemodialysis Orders ORDERS 01/17/25 Transmitted 07:00 Dialysis Nursing REGINALD 01/17/25 In Process Message 07:00 Document Fluid Input REGINALD 01/17/25 In Process And Outpu 07:00 Dietary Evaluation Review Comments: 1) Nepro carb steady 240ml BID (ordered per [facility]NS protocol) 2) Neprhro-Kaela 1 tab daily 3) Continue current plan of care Expected Outcomes/Goals: To meet >75% estimated needs Fu 3-5 days MARLEY LARSEN MD Jan 17, 2025 15:31
[2025-01-17] MEDS: SODIUM CHL 0.9% 1000 ML BAG XX ONE (17:32)
--- NOTE | 2025-01-17 20:15 | DVHPN2 ---
Progress Note - Dictate Date Seen: Jan 17, 2025 Medical Necessity Reason Pt with a Central, PICC or Fol: No The following are medically ne: Central Line Subjective Patient seen and examined at bedside. Remains on supplemental oxygen Overnight events reviewed. vital signs Vital Sign Date Time Temp Pulse Resp B/P (MAP) Pulse Ox O2 Delivery O2 Flow Rate FiO2 01/17/25 16:00 90 01/17/25 16:00 16 100 Nasal Cannula* 2 28 01/17/25 14:15 103/61 (75) 01/17/25 04:00 98.3 98.3 Total Intake and Output 01/16/25 01/16/25 01/17/25 14:59 22:59 06:59 Intake Total 179.94 ml 663.281 ml 956.720 ml Output Total 0 ml Balance 179.94 ml 663.281 ml 956.720 ml medications Current Medications Medications Dose Ordered Sig/Honey Route Start Time Stop Time Status Last Admin Dose Admin Diagnostic Test (Pha) 1 strip Q6HR 01/09/25 06:00 01/17/25 18:00 1 STRIP Insulin Human Regular Q6HR SC 01/09/25 06:00 01/16/25 23:32 4 UNITS Dextrose 50 ml UD PRN IV 01/09/25 00:30 Pantoprazole Sodium 40 mg DAILY IV 01/10/25 10:00 01/17/25 10:00 40 MG Acetaminophen/ Hydrocodone Bitart 1 tab Q8HPRN PRN PO 01/09/25 10:30 01/17/25 07:05 1 TAB Ondansetron HCl 4 mg Q8HPRN PRN IV 01/09/25 10:30 Acetaminophen 650 mg Q6HP PRN PO 01/09/25 10:30 01/11/25 00:19 650 MG Ferrous Sulfate 325 mg BIDWM PO 01/10/25 18:00 01/17/25 08:00 325 MG Sevelamer HCl 800 mg TIDWM PO 01/10/25 18:00 01/17/25 08:00 800 MG Gabapentin 100 mg TID PO 01/11/25 14:00 01/17/25 06:07 100 MG Norepinephrine Bitartrate 32 mg/ Sodium Chloride 250 ml @ 0.938 mls/ hr Q24H IV 01/12/25 12:00 01/16/25 09:07 3.75 MLS/HR Midodrine 5 mg TID@0600,1200,1800 PO 01/12/25 18:00 01/17/25 12:00 5 MG Emollient Ointment 1 applic PRN PRN TOP 01/14/25 10:30 Linezolid 300 ml @ 150 mls/hr Q12HR@0400,1600 IV 01/14/25 16:00 01/17/25 04:01 150 MLS/HR Albumin Human 100 ml @ 100 mls/hr PRN PRN IV 01/15/25 10:30 01/17/25 17:15 100 MLS/HR Multivit/Ca Carb/ B Cmplx/FA/Prenat 1 tab DAILY PO 01/16/25 10:00 01/16/25 11:59 1 TAB Amiodarone HCl 200 mg Q12HR PO 01/17/25 22:00 Fluconazole 200 mg DAILY PO 01/17/25 10:15 01/17/25 10:15 200 MG Throat Lozenges 1 moriah Q2HP PRN MT 01/17/25 17:30 objective Gen.: Patient lying in bed in no apparent distress. On supplemental oxygen. Head: Normocephalic, atraumatic. Eyes: EOMI/PERRLA. Ears: Normal hearing. Normal anatomy. Neck/trachea: Trachea midline, supple. Nose: Normal external anatomy. Mouth: Moist mucous membranes. Chest: Decreased air entry bilaterally. No wheezing or rhonchi. Cardiovascular: Positive S1, positive S2. Regular rate and rhythm. Abdomen: Positive bowel sounds in all 4 quadrants. Soft, non-tender, non- distended. : Deferred. Rectal: Deferred. Skin: Warm, dry. Intact. Extremities: 2+ radial pulses bilaterally. No lower extremity edema. Neuro: Awake, alert, oriented x3. No gross motor or sensory deficits. Cranial nerves II through XII intact. Gait not assessed. laboratory and microbiology Laboratory Tests 01/17/25 04:46 Test 01/17/25 04:46 Range/Units Serum Glucose 85 74-106 mg/dL Assessment/Plan Impression: Acute hypoxic respiratory failure Dependence on supplemental oxygen End-stage renal disease, on hemodialysis Heart failure with recent pericardial window due to recurrent pericardial effusions Refractory ascites due to cirrhosis with frequent paracentesis Diabetes mellitus Non-ST elevation RI Events: Remains on supplemental oxygen On 2 LPM NC Taper O2 as tolerated On pressors for hemodynamic support Levophed 8 mcg/min Titrate to keep mean arterial pressure greater than 65 mmHg. On midodrine - monitor BP. Continue antibiotics Blood cx positive for VRE. Incentive spirometry HD per Nephrology Monitor renal function Protonix for GI prophylaxis Monitor hemoglobin CXR demonstrates cardiomegaly with pulmonary congestion and edema. Superimposed pneumonia cannot be excluded S/p paracentesis on 01/13/25- 3.3 liters of ascitic fluid removed Received albumin post paracentesis. See separate procedure note for details. Labs and imaging reviewed. Rest of plan as noted below. Plan: Supplemental oxygen Titrate to keep O2 sats above 92%. S/p paracentesis on 01/10/25 Head of bed elevation Aspiration precautions Continue antibiotics Pressors as necessary for hemodynamic support Titrate to keep mean arterial pressure greater than 65 mmHg. Accu-Cheks, ISS PRN. Hemodialysis per Nephrology Nephrology recommendations appreciated. Monitor renal function. Monitor electrolytes. Supplement as necessary. Monitor ins and outs. DVT prophylaxis. Prognosis: Poor given patient's multiple co-morbidities. Condition: Critical Rest of plan per hospitalist and other consultants. A total of 35 minutes of critical care time was spent reviewing the patient record, examining the patient, making a diagnostic and therapeutic plan, discussing this plan with the medical personnel, following up on diagnostic studies and following the patient for clinical stability excluding any and all procedures. At least 50% of this time was spent in direct, [id number] contact. Thank you, ELLIE Moreland, for allowing me to participate in this patient's care. Further recommendations will depend on the patient's clinical course. Please do not hesitate to contact me if you have any questions or concerns. This medical document was created using an electronic medical record system with [employer] dictation system. Although these documentations are being carefully reviewed, there may still be some phonetic and typographical changes. The errors are purely typographical, due to imperfection on the software program, and do not reflect any compromise in the patient's medical care. Dietary Evaluation Review Comments: 1) Nepro carb steady 240ml BID (ordered per ONS protocol) 2) Neprhro-Kaela 1 tab daily 3) Continue current plan of care Expected Outcomes/Goals: To meet >75% estimated needs Fu 3-5 days Plan discussed with: Other (RN Ty) Critical Care Time(min): 35 MAYE HEATH MD Jan 17, 2025 20:15
[2025-01-17] MEDS: AMIODARONE HCL 200 MG TAB PO SCH (22:06)
[2025-01-18] VITALS (102 sets, daily range): BP systolic 88–130; BP diastolic 36–73; PULSE 82–127; RESP 8–22; TEMP 97.4–99; O2SAT 82–100
[2025-01-18 05:44] LABS: Potassium 3.8 mmol/L (3.5-5.1)
[2025-01-18 05:45] LABS: Anion Gap 14 (5-15); Calcium 9.4 mg/dL (8.7-10.4); Carbon Dioxide 27 mmol/L (20-31)
[2025-01-18 05:49] LABS: Basophils # (auto) 0.1 10 ^3/uL (0-0.2); Basophils % (auto) 1.2 % (0.0-2.0); Eosinophils # (auto) 0.3 10 ^3/uL (0-0.8); Eosinophils % (auto) 2.8 % (0.0-7.0); Hematocrit 35.3 % (36.0-46.0); Hemoglobin 11.6 g/dL (12.2-16.2); Lymphocytes # (auto) 0.7 10 ^3/uL (0.4-5.4); Lymphocytes % (auto) 6.4 % (10.0-50.0); Mean Corpuscular Hemoglobin 32.2 pg (28.0-32.0); Mean Corpuscular Hgb Conc. 32.8 g/dL (32.0-36.0); Mean Corpuscular Volume 98.1 fL (80.0-100.0); Monocytes # (auto) 1.2 10 ^3/uL (0-1.3); Monocytes % (auto) 11.1 % (0.0-12.0); Neutrophils # (auto) 8.3 10 ^3/uL (1.6-8.6); Neutrophils % (auto) 78.5 % (37.0-80.0); Platelet Count (auto) 135 10^3/uL (140-450); Red Cell Distribution Width 16.5 % (11.8-14.3); White Blood Cell 10.6 10^3/uL (4.4-10.8)
[2025-01-18 05:50] LABS: BUN/Creatinine Ratio 5.2 (10.0-20.0); Blood Urea Nitrogen 19 mg/dL (9-23)
[2025-01-18 06:12] LABS: Chloride 93 mmol/L (98-107); Glucose 150 mg/dL (74-106); Sodium 134 mmol/L (136-145)
--- NOTE | 2025-01-18 09:50 | DVHPN2 ---
Progress Note Date Seen: Jan 18, 2025 Medical Necessity Reason Pt with a Central, PICC or Fol: No The following are medically ne: Central Line Subjective Patient reports: Feels better Review of Systems: Deferred Objective vital signs Vital Sign Date Time Temp Pulse Resp B/P (MAP) Pulse Ox O2 Delivery O2 Flow Rate FiO2 01/18/25 09:36 125 01/18/25 09:34 13 100 Nasal Cannula* 2 28 01/18/25 09:15 101/62 (75) 01/18/25 08:00 98.2 98.2 Total Intake and Output 01/17/25 01/17/25 01/18/25 15:00 23:00 07:00 Intake Total 246.66 ml 985.540 ml 636.566 ml Output Total 0 ml 0 ml Balance 246.66 ml 985.540 ml 636.566 ml medications Current Medications Medications Dose Ordered Sig/Honey Route Start Time Stop Time Status Last Admin Dose Admin Diagnostic Test (Pha) 1 strip Q6HR 01/09/25 06:00 01/18/25 05:49 1 STRIP Insulin Human Regular Q6HR SC 01/09/25 06:00 01/18/25 06:13 2 UNITS Dextrose 50 ml UD PRN IV 01/09/25 00:30 Pantoprazole Sodium 40 mg DAILY IV 01/10/25 10:00 01/18/25 08:06 40 MG Acetaminophen/ Hydrocodone Bitart 1 tab Q8HPRN PRN PO 01/09/25 10:30 01/18/25 08:24 1 TAB Ondansetron HCl 4 mg Q8HPRN PRN IV 01/09/25 10:30 Acetaminophen 650 mg Q6HP PRN PO 01/09/25 10:30 01/11/25 00:19 650 MG Ferrous Sulfate 325 mg BIDWM PO 01/10/25 18:00 01/18/25 08:07 325 MG Sevelamer HCl 800 mg TIDWM PO 01/10/25 18:00 01/18/25 08:07 800 MG Gabapentin 100 mg TID PO 01/11/25 14:00 01/18/25 05:49 100 MG Norepinephrine Bitartrate 32 mg/ Sodium Chloride 250 ml @ 0.938 mls/ hr Q24H IV 01/12/25 12:00 01/16/25 09:07 3.75 MLS/HR Midodrine 5 mg TID@0600,1200,1800 PO 01/12/25 18:00 01/18/25 05:49 5 MG Emollient Ointment 1 applic PRN PRN TOP 01/14/25 10:30 Linezolid 300 ml @ 150 mls/hr Q12HR@0400,1600 IV 01/14/25 16:00 01/18/25 03:54 150 MLS/HR Albumin Human 100 ml @ 100 mls/hr PRN PRN IV 01/15/25 10:30 01/17/25 18:15 100 MLS/HR Multivit/Ca Carb/ B Cmplx/FA/Prenat 1 tab DAILY PO 01/16/25 10:00 01/18/25 08:06 1 TAB Fluconazole 200 mg DAILY PO 01/17/25 10:15 01/18/25 08:07 200 MG Throat Lozenges 1 moriah Q2HP PRN MT 01/17/25 17:30 Amiodarone HCl 400 mg Q12HR PO 01/18/25 22:00 Examination: GENERAL:Abnormal, CVS:Abnormal, ABDOMEN:Abnormal, SKIN:Abnormal laboratory and microbiology Laboratory Tests 01/18/25 04:40 Test 01/18/25 04:40 Range/Units Serum Glucose 150 H 74-106 mg/dL Microbiology Date/Time Source Procedure Growth Status 01/10/25 15:18 Blood Blood Culture - Final Enterococcus faecium - VRE Complete 01/10/25 12:45 Ascities Fluid Gram Stain - Final Complete 01/10/25 12:45 Ascities Fluid Body Fluid Culture - Final Complete 01/09/25 14:00 Sputum Gram Stain - Final Complete 01/09/25 14:00 Respiratory Culture - Final Presumptive Lisa albicans Complete 01/09/25 05:00 Nose MRSA Screen - Final Complete Problem List/Assessment/Plan Problem List/Assessment/Plan Admitted for fluid overload in the setting of refractory ascites Shock cardiogenic versus septic End-stage renal disease on hemodialysis Heart failure with recent pericardial drainage due to recurrent pericardial effusions Refractory ascites due to cirrhosis with frequent paracentesis Diabetes hyperkalemia VRE bacteremia pending new BCX results possible HD today based on volume and vital assessment midodrine po levophed keep map > 65 Cardiology- posterior pericardial effusion RV failure s/p paracentesis 01/10/25 renal diet Plan discussed with: Patient Dietary Evaluation Review Comments: 1) Nepro carb steady 240ml BID (ordered per ONS protocol) 2) Neprhro-Kaela 1 tab daily 3) Continue current plan of care Expected Outcomes/Goals: To meet >75% estimated needs Fu 3-5 days MARLEY LARSEN MD Jan 18, 2025 09:50
--- NOTE | 2025-01-18 10:09 | DVHPN2 ---
Subjective Patient denies any symptoms Reviewed: Care Plan, H&P, Labs, Medications Changes from previous H/P or p: No Changes General: Per HPI Objective Vitals Vital Signs Date Time Temp Pulse Resp B/P (MAP) Pulse Ox O2 Delivery O2 Flow Rate FiO2 01/18/25 09:45 126 13 106/53 (70) 94 01/18/25 09:34 Nasal Cannula* 2 28 01/18/25 08:00 98.2 98.2 Intake/Output Intake and Output 01/18/25 07:00 Intake Total 1868.766 ml Output Total 0 ml Balance 1868.766 ml Intake Oral 1450 ml IV Total 418.766 ml Output Urine Total 0 ml General Appearance: Alert, Oriented X3, Cooperative, No acute distress HEENT: Atraumatic, PERRLA, Other (Blind) Lungs: Clear to auscultation, Normal air movement Cardiovascular: Normal S1, Normal S2 Back: Flank Tenderness, Midline Tenderness Neuro: Normal gait, Normal speech, Cranial nerves 3-12 NL Skin: Dry, Intact Psych/Mental Status: Mental status NL, Mood NL Medications Current Medications Medications Dose Ordered Sig/Honey Route Start Time Stop Time Status Last Admin Dose Admin Diagnostic Test (Pha) 1 strip Q6HR 01/09/25 06:00 01/18/25 05:49 1 STRIP Insulin Human Regular Q6HR SC 01/09/25 06:00 01/18/25 06:13 2 UNITS Dextrose 50 ml UD PRN IV 01/09/25 00:30 Pantoprazole Sodium 40 mg DAILY IV 01/10/25 10:00 01/18/25 08:06 40 MG Acetaminophen/ Hydrocodone Bitart 1 tab Q8HPRN PRN PO 01/09/25 10:30 01/18/25 08:24 1 TAB Ondansetron HCl 4 mg Q8HPRN PRN IV 01/09/25 10:30 Acetaminophen 650 mg Q6HP PRN PO 01/09/25 10:30 01/11/25 00:19 650 MG Ferrous Sulfate 325 mg BIDWM PO 01/10/25 18:00 01/18/25 08:07 325 MG Sevelamer HCl 800 mg TIDWM PO 01/10/25 18:00 01/18/25 08:07 800 MG Gabapentin 100 mg TID PO 01/11/25 14:00 01/18/25 05:49 100 MG Norepinephrine Bitartrate 32 mg/ Sodium Chloride 250 ml @ 0.938 mls/ hr Q24H IV 01/12/25 12:00 01/16/25 09:07 3.75 MLS/HR Midodrine 5 mg TID@0600,1200,1800 PO 01/12/25 18:00 01/18/25 05:49 5 MG Emollient Ointment 1 applic PRN PRN TOP 01/14/25 10:30 Linezolid 300 ml @ 150 mls/hr Q12HR@0400,1600 IV 01/14/25 16:00 01/18/25 03:54 150 MLS/HR Albumin Human 100 ml @ 100 mls/hr PRN PRN IV 01/15/25 10:30 01/17/25 18:15 100 MLS/HR Multivit/Ca Carb/ B Cmplx/FA/Prenat 1 tab DAILY PO 01/16/25 10:00 01/18/25 08:06 1 TAB Fluconazole 200 mg DAILY PO 01/17/25 10:15 01/18/25 08:07 200 MG Throat Lozenges 1 moriah Q2HP PRN MT 01/17/25 17:30 Amiodarone HCl 400 mg Q12HR PO 01/18/25 22:00 Laboratory Results Laboratory Tests 01/18/25 04:40 Chemistry Test 01/18/25 04:40 Calcium Level 9.4 mg/dL (8.7-10.4) Microbiology Microbiology Date/Time Source Procedure Growth Status 01/10/25 15:18 Blood Blood Culture - Final Enterococcus faecium - VRE Complete 01/10/25 12:45 Ascities Fluid Gram Stain - Final Complete 01/10/25 12:45 Ascities Fluid Body Fluid Culture - Final Complete 01/09/25 14:00 Sputum Gram Stain - Final Complete 01/09/25 14:00 Respiratory Culture - Final Presumptive Lisa albicans Complete 01/09/25 05:00 Nose MRSA Screen - Final Complete Labs and/or images reviewed: Labs reviewed by me, Image(s) reviewed by me Assessment/Plan Assessment/Plan Plan: -septic shock with VRE in the blood -cirrhosis with severe ascites -ESRD with hemodialysis -NSTEMI, probably type secondary to recent pericardiocentesis -legally blind -anemia of chronic disease - dyslipidemia -paroxysmal atrial fibrillation -possible infiltration of norepinephrine to right upper extremity with extravasation. Plan: Events: Patient was went back into an atrial tachycardia. Levophed at 10 micrograms/minute. We will increase amiodarone 400 mg p.o. b.i.d.. Cardiology consultation placed. EKG pending. -continue Zyvox, Diflucan -continue vasopressor therapy -pain management: Increase frequency of [place], continue gabapentin. -echocardiogram: Results reviewed -nephrology consultation: Recommendations reviewed -repeat labs in a.m. Critical care time spent with patient discussing and formulating plan of care: 40 minutes. This does not include time spent performing procedures. This medical document was created using an electronic medical record system with [employer] dictation system. Although this document has been carefully reviewed, there may still be some phonetic and typographical errors. These areas are purely typographical due to imperfections of the software programs, and do not reflect any compromise in the patient's medical care. Plan discussed with: Patient, Other (RN) My Orders Orders - PAVEL GUAMAN NP Procedure Category Date Status Time Complete Blood Count LAB 01/19/25 Verified 08:00 Complete Blood Count LAB 01/20/25 Verified 08:00 Fluconazole Tablet PHA 01/17/25 In Process (Diflucan Tablet) 10:15 Throat Lozenges PHA 01/17/25 In Process (Cepastat Lozenges) 17:30 Amiodarone Tablet PHA 01/18/25 In Process (Cordarone Tablet) 22:00 Date of Service: Jan 18, 2025 Billing Provider: PAVEL GUAMAN NP Common Visit Codes: [id number] CARE 30-74 MIN PAVEL GUAMAN NP Jan 18, 2025 10:09
[2025-01-18] MEDS: AMIODARONE HCL 200 MG TAB PO ONE (10:29)
[2025-01-18] MEDS: DEXTROSE (50%) 50ML SYRG IV PRN (10:40)
--- NOTE | 2025-01-18 11:40 | ECG ---
[facility] Test Date: 2025-01-18 Test Time: 10:44:21 Pat Name: PINO FERRERA Department: Room: 0266 A Gender: F Sales/Marketing: : 1965 Requested By: BEATRIZ EMMANUEL Order Number: [id number] Reading MD: Balta Rosa Measurements Intervals [place] Rate: 126 P: 0 CA: 0 QRS: 258 QRSD: 98 T: 129 QT: 318 QTc: 460 Interpretive Statements Accelerated Junctional rhythm Right superior axis deviation Pulmonary disease pattern Nonspecific T wave abnormality Electronically Signed On 01-20-2025 20:11:40 PDT by Balta Rosa Please click the below link to view image of tracing.
--- NOTE | 2025-01-18 11:40 | ECG ---
[facility] Test Date: 2025-01-18 Test Time: 10:45:18 Pat Name: PINO FERRERA Department: Room: 0266 A Gender: F [employer]: : 1965 Requested By: PAVEL GUAMAN Order Number: [id number] Reading MD: Balta Rosa Measurements Intervals Bent Rate: 124 P: 0 MO: 0 QRS: 256 QRSD: 100 T: 125 QT: 346 QTc: 497 Interpretive Statements Accelerated Junctional rhythm Low voltage QRS Possible Lateral infarct , age undetermined Electronically Signed On 01-20-2025 20:11:44 PDT by Balta Rosa Please click the below link to view image of tracing.
--- NOTE | 2025-01-18 12:34 | DVHPN2 ---
Progress Note - Dictate Date Seen: Jan 18, 2025 Medical Necessity Reason Pt with a Central, PICC or Fol: No The following are medically ne: Central Line vital signs Vital Sign Date Time Temp Pulse Resp B/P (MAP) Pulse Ox O2 Delivery O2 Flow Rate FiO2 01/18/25 12:15 98.2 122 11 101/58 (72) 92 98.2 01/18/25 11:32 Nasal Cannula* 2 28 Total Intake and Output 01/17/25 01/17/25 01/18/25 15:00 23:00 07:00 Intake Total 246.66 ml 985.540 ml 636.566 ml Output Total 0 ml 0 ml Balance 246.66 ml 985.540 ml 636.566 ml medications Current Medications Medications Dose Ordered Sig/Honey Route Start Time Stop Time Status Last Admin Dose Admin Diagnostic Test (Pha) 1 strip Q6HR 01/09/25 06:00 01/18/25 10:30 1 STRIP Insulin Human Regular Q6HR SC 01/09/25 06:00 01/18/25 06:13 2 UNITS Dextrose 50 ml UD PRN IV 01/09/25 00:30 01/18/25 10:40 50 ML Pantoprazole Sodium 40 mg DAILY IV 01/10/25 10:00 01/18/25 08:06 40 MG Acetaminophen/ Hydrocodone Bitart 1 tab Q8HPRN PRN PO 01/09/25 10:30 01/18/25 08:24 1 TAB Ondansetron HCl 4 mg Q8HPRN PRN IV 01/09/25 10:30 Acetaminophen 650 mg Q6HP PRN PO 01/09/25 10:30 01/11/25 00:19 650 MG Ferrous Sulfate 325 mg BIDWM PO 01/10/25 18:00 01/18/25 08:07 325 MG Sevelamer HCl 800 mg TIDWM PO 01/10/25 18:00 01/18/25 10:30 800 MG Gabapentin 100 mg TID PO 01/11/25 14:00 01/18/25 05:49 100 MG Norepinephrine Bitartrate 32 mg/ Sodium Chloride 250 ml @ 0.938 mls/ hr Q24H IV 01/12/25 12:00 01/16/25 09:07 3.75 MLS/HR Midodrine 5 mg TID@0600,1200,1800 PO 01/12/25 18:00 01/18/25 10:30 5 MG Emollient Ointment 1 applic PRN PRN TOP 01/14/25 10:30 Linezolid 300 ml @ 150 mls/hr Q12HR@0400,1600 IV 01/14/25 16:00 01/18/25 03:54 150 MLS/HR Albumin Human 100 ml @ 100 mls/hr PRN PRN IV 01/15/25 10:30 01/17/25 18:15 100 MLS/HR Multivit/Ca Carb/ B Cmplx/FA/Prenat 1 tab DAILY PO 01/16/25 10:00 01/18/25 08:06 1 TAB Fluconazole 200 mg DAILY PO 01/17/25 10:15 01/18/25 08:07 200 MG Throat Lozenges 1 moriah Q2HP PRN MT 01/17/25 17:30 Amiodarone HCl 400 mg Q12HR PO 01/18/25 22:00 laboratory and microbiology Laboratory Tests 01/18/25 04:40 Test 01/18/25 04:40 Range/Units Serum Glucose 150 H 74-106 mg/dL Assessment/Plan Impression Acute hypoxemic respiratory failure Liver cirrhosis ESRD on HD Ascites Patient seen and examined Events Low oxygen requirements On 2 liters nasal cannula On pressors for hemodynamic support S/p paracentesis on 01/13/25- 3.3 liters of ascitic fluid removed Labs and imaging reviewed Management Supplemental oxygen Titrate to maintain sats 90% or above Incentive spirometry Aspiration precautions Continue antibiotics Bronchodilators Monitor renal function HD as per nephrology Management deferred Monitor electrolytes Supplement as needed DVT prophylaxis Critical care time 35 minutes Dietary Evaluation Review Comments: 1) Nepro carb steady 240ml BID (ordered per ONS protocol) 2) Neprhro-Kaela 1 tab daily 3) Continue current plan of care Expected Outcomes/Goals: To meet >75% estimated needs Fu 3-5 days Plan discussed with: Patient MARIA FERNANDA CHAMBERS MD Jan 18, 2025 12:34
--- NOTE | 2025-01-18 16:04 | DVH ---
EXAM: US BILAT LOW EXT ART DUPLEX; HISTORY: mottled BLE, no palpable pulses COMPARISON: None TECHNIQUE: Realtime grayscale and color Doppler ultrasound images of the lower extremity arteries wi th spectral waveform analysis were obtained. FINDINGS: RIGHT: Diffuse non flow-limiting atherosclerotic plaque identified. No hemodynamically significant s tenosis noted. Normal spectral tracings. Peak systolic velocities measure up to 107 cm/s. LEFT: The common femoral and proximal femoral arteries could not be evaluated due to line placement. Diffuse non flow limiting atherosclerotic plaque identified. No hemodynamically significant stenosis noted. Normal spectral tracings. Peak systolic velocities measure up to 77 cm/s. IMPRESSION: 1. Diffuse atherosclerotic disease with no hemodynamically significant stenosis identified. Please no te that the left common femoral and proximal femoral arteries could not be evaluated due to presence of central line. REFERENCE VALUES, [facility] ([facility]LY [facility], [facility]) vascular Imaging Lab Criteria: Peak systolic velocity ranges (in cm/sec) are as follows: <150 cm/s - <20 % stenosis 150-200 cm/s - 20-49% stenosis 200-300 cm/s - 50-75% stenosis >300 cm/s -> 75% stenosis
--- NOTE | 2025-01-18 17:34 | DVHINCON2 ---
Date Seen: Jan 18, 2025 Referring Physician ELLIE Moreland Reason for Consultation Atrial tachycardia History of Present Illness This is a 59-year-old female patient who presents to the emergency room with chief complaint of altered level of consciousness. At the time of assessment, the patient is alert and oriented to self, place, and situation. Patient is a very poor historian. Medical history obtained from medical records. Cardiology has been consulted at this time for atrial tachycardia. Initial twelve lead electrocardiogram done upon admission reveals junctional rhythm with baseline wander in multiple leads (I,II,III, aVF). At the time of assessment, the sheryl ent appears to be in junctional rhythm. Previous cardiac events reviewed, reveals that the patient has gone into atrial tachycardia. Significant past medical history includes congestive heart failure, paroxysmal atrial fibrillation (on amiodarone and Eliquis at home), hypertension, hyperlipidemia, type 2 diabetes mellitus, liver cirrhosis requiring frequent paracentesis, ascites, end-stage renal disease on hemodialysis, and chronic anemia. The patient was a poor historian and unable to confirm if she sees a tank truck loader in the outpatient setting. Past Medical History Past medical history reviewed. No other significant than mentioned above. Past Surgical History Past surgical history reviewed. Family History: Diabetes mellitus G8 MOTHER, Onset:50's - 60 Family history: Cardiovascular disease G8 MOTHER (PALPITATIONS) Family history: Diabetes mellitus G8 MOTHER G8 FATHER G8 BROTHER G8 BROTHER Family history: Hypertension G8 MOTHER G8 FATHER Hypertension G8 MOTHER, Onset:40's - 50 Family History Family history reviewed. Social History Denies the use of tobacco, alcohol or illicit drugs. Allergies: Coded Allergies: No Known Drug Allergy (Unverified Allergy, Unknown, 11/20/24) Home Meds Reported Medications Insulin Isophane & Reg (Human) (Humulin 70/30 (70-30) 100 Unit/ml) 1 Units/0.01 Ml Inj, 5 UNITS SC BID for 31 Days, #10 12/04/24 Gabapentin (Gabapentin) 100 Mg Cap, 1 CAP PO TID for 90 Days, #270 12/04/24 Docusate Sodium (Colace) 100 Mg Cap, 1 CAP PO BID for 30 Days, #60 12/04/24 Amiodarone Hcl (Amiodarone Hcl) 200 Mg Tab, 1 TAB PO DAILY for 90 Days, #90 12/04/24 Dorzolamide-Timolol (Dorzolamide Hcl/Timolol M) 1 Ml Raya, 1 DROP EACHEYE BID for 50 Days, #10 12/04/24 Midodrine HCl (Midodrine Hydrochloride) 10 Mg Tab, 1 TAB PO TID for 90 Days, #270 12/04/24 Cetirizine Hcl (Cetirizine Hcl) 5 Mg Tab, 1 TAB DAILY 09/05/22 Pantoprazole Sodium Sesquihydr (Pantoprazole Sodium Dr) 40 Mg Tab, 1 TAB DAILY 09/05/22 Diltiazem Hcl (DILTIAZEM HCL ER) 240 Mg Cap, 1 CAP PO DAILY 09/05/22 Hydrocodone-Acetaminophen (Hydrocodone Bitartrate/AC 5-325 mg) 1 Tab Tab, 1 TAB PO TID for PAIN, TAB 11/04/21 Tramadol Hcl (Tramadol Hcl) 50 Mg Tab, 50 MG PO Q6HPRN PRN for PAIN SCALE 7 THRU 10, MG 11/04/21 Ferrous Sulfate (Ferrous Sulfate) 325 Mg Tab, 325 MG PO DAILY for IRON DEFICIENCY, MG 11/04/21 Apixaban Base (ELIQUIS) 2.5 Mg Tab, 2.5 MG PO DAILY for ARRHYTHMIA for 60 Days, #60 07/24/21 Trazodone HCl (Trazodone Hydrocloride) 100 Mg Tab, 1 TAB PO DAILY for DEPRESSION for 90 Days, #90 07/24/21 Hydroxyzine Hcl (Hydroxyzine Hcl) 25 Mg Tab, 25 MG PO BID for ANXIETY for 90 Days, #180 06/04/21 Acetaminophen W/ Codeine (Tylenol W/Cod #3) 1 Tab Tb, 1 TAB PO Q6HP for PAIN 06/04/21 [place]-3 Fatty Acids ([place] Oil) 1,000 Mg Cap, 1000 MG PO DAILY for SUPPLEMENT 06/04/21 Carvedilol (Coreg) 6.25 Mg Tab, 6.25 MG PO BID for HYPERTENSION 01/14/21 Amitriptyline HCl (Amitriptyline Hydrochlori) 75 Mg Tab, 75 MG PO HS for ANXIETY, TAB 01/14/21 Hydralazine HCl (Hydralazine HCl) 25 Mg Tab, 25 MG PO Q8HPRN for HYPERTENSION, TAB 01/14/21 Atorvastatin Calcium (Lipitor) 20 Mg Tab, 20 MG PO DAILY for HYPERLILIDEMIA for 90 Days, #90 01/14/21 Furosemide (Furosemide) 80 Mg Tab, 80 MG PO DAILY for EDEMA 01/27/18 Sevelamer Carbonate (Renvela) 800 Mg Tab, 2 TAB PO TIDWM for 90 Days, #540 01/27/18 Home Meds Home medications reviewed. Current Medications Current Medications Medications (Trade) Dose Ordered Sig/Honey Route PRN Reason Start Time Stop Time Status Last Admin Amiodarone HCl (Cordarone Tablet) 200 mg Q12HR PO 01/17/25 22:00 01/18/25 08:41 DC 01/18/25 08:07 Throat Lozenges (Cepastat Lozenges) 1 moriah Q2HP PRN MT FOR SORE THROAT 01/17/25 17:30 Amiodarone HCl (Cordarone Tablet) 400 mg Q12HR PO 01/18/25 22:00 Review of Systems Constitutional: No symptom reported Ears, Nose, & Throat: No symptom reported Eyes: No symptom reported Neurological: Altered level of consciousness Pulmonary/Respiratory: No symptoms reported Cardiovascular: No symptom reported Gastrointestinal: No symptom reported Genitourinary: No symptom reported Musculoskeletal: No symptom reported Skin: No symptom reported Psychiatric: No symptom reported Endocrine: No symptom reported Hematologic/Lymphatic: No symptom reported Vital Signs Vital Signs Date Time Temp Pulse Resp B/P (MAP) Pulse Ox O2 Delivery O2 Flow Rate FiO2 01/18/25 16:45 90 12 117/64 (81) 94 01/18/25 16:30 99.0 99.0 01/18/25 15:44 Nasal Cannula* 2 28 Physical Exam General Appearance: Cooperative. Well-developed. Well-nourished. No acute distress. Pulmonary/Respiratory: Clear, bilateral breaths sounds. Cardiovascular/Chest: Regular rate and rhythm. Peripheral Pulses: 2+ Radial (R). 2+ Radial (L). Unable to palpate pedal pulses Abdominal Exam: Normal bowel sounds. Ascites, large distended abdomen Ankle Exam: Negative ankle edema Lower extremities: Negative lower extremity edema Neuro/Mental Status: A/OX4, coherent. Thoughts/Psych: Normal thought pattern. Appropriate mood and affect. Good judgment and insight. Appearance: No acute distress. Skin Exam: Mottling to bilateral lower extremities. Bilateral feet cool to touch Labs/Diagnostic Data Labs Test 01/18/25 16:38 01/18/25 04:40 01/14/25 05:42 01/13/25 04:41 Range/Units POC Glucose 362 H 70-106 mg/dl White Blood Count 10.6 4.4-10.8 10^3/uL Red Blood Count 3.60 L 4.0-5.20 10^6/uL Hemoglobin 11.6 L 12.2-16.2 g/dL Hematocrit 35.3 L 36.0-46.0 % Mean Corpuscular Volume 98.1 80.0-100.0 fL Mean Corpuscular Hemoglobin 32.2 H 28.0-32.0 pg Mean Corpuscular Hemoglobin Concent 32.8 32.0-36.0 g/dL Red Cell Distribution Width 16.5 H 11.8-14.3 % Platelet Count 135 L 140-450 10^3/uL Mean Platelet Volume 10.0 6.9-10.8 fL Neutrophils (%) (Auto) 78.5 37.0-80.0 % Lymphocytes (%) (Auto) 6.4 L 10.0-50.0 % Monocytes (%) (Auto) 11.1 0.0-12.0 % Eosinophils (%) (Auto) 2.8 0.0-7.0 % Basophils (%) (Auto) 1.2 0.0-2.0 % Neutrophils # (Auto) 8.3 1.6-8.6 10 ^3/uL Lymphocytes # (Auto) 0.7 0.4-5.4 10 ^3/uL Monocytes # (Auto) 1.2 0-1.3 10 ^3/uL Eosinophils # (Auto) 0.3 0-0.8 10 ^3/uL Basophils # (Auto) 0.1 0-0.2 10 ^3/uL Nucleated Red Blood Cells 0.0 % Sodium Level 134 L 136-145 mmol/L Potassium Level 3.8 3.5-5.1 mmol/L Chloride Level 93 L 98-107 mmol/L Carbon Dioxide Level 27 20-31 mmol/L Anion Gap 14 5-15 Blood Urea Nitrogen 19 9-23 mg/dL Creatinine 3.63 H 0.550-1.02 mg/dL Glomerular Filtration Rate Calc 14 >90 mL/min BUN/Creatinine Ratio 5.2 L 10.0-20.0 Serum Glucose 150 H 74-106 mg/dL Calcium Level 9.4 8.7-10.4 mg/dL Magnesium Level 2.2 1.6-2.6 mg/dL Total Bilirubin 1.0 0.2-1.0 mg/dL Aspartate Amino Transferase (AST) < 8 L 13-40 U/L Alanine Aminotransferase (ALT) < 9 7-40 U/L Alkaline Phosphatase 182 H 46-116 U/L Total Protein 5.6 L 5.7-8.2 g/dL Albumin 3.8 3.2-4.8 g/dL Ammonia 16 11-32 umol/L Test 01/10/25 12:45 01/10/25 05:19 01/09/25 09:07 01/09/25 04:28 Range/Units Body Fluid Source Peritoneal fluid Body Fluid pH 8.0 Body Fluid WBC (Manual) 218 H 0-200 CUMM Body Fluid RBC (Manual) 446 0-2000 CUMM Body Fluid Mononuclear Cells 20 % Body Fluid Polymorphonuclear Cells 80 H 0-25 % Body Fluid Glucose 126 . mg/dL Body Fluid Total Protein 3.0 . g/dL Body Fluid Lactate Dehydrogenase 81 . IU/L Phosphorus Level 5.1 2.4-5.1 mg/dL Iron Level 21 L 50-170 ug/dL Total Iron Binding Capacity 120 L 250-425 ug/dL Percent Iron Saturation 17.5 15-50 % Ferritin 257.9 10-291 ng/mL Hepatitis A IgM Antibody Negative Hepatitis B Surface Antigen Negative Negative Hepatitis B Core IgM Antibody Negative Negative Hepatitis C Antibody Negative Negative Lactic Acid Level 2.0 0.4-2.0 mmol/L Troponin I High Sensitivity 593 *H </=34 ng/L Test 01/09/25 03:50 01/09/25 01:15 01/09/25 00:57 01/08/25 19:36 Range/Units Influenza Type A Antigen Negative Negative Influenza Type B Antigen Negative Negative SARS-CoV-2 Antigen (Rapid) Negative NEGATIVE Blood Gas Specimen Type Arterial Blood Gas Sample Site Left brachial Blood Gas Patient Temperature 37.0 Arterial Blood Date Drawn [id number] Arterial Blood pH 7.337 L 7.350-7.450 Arterial Blood Partial Pressure CO2 40.0 32.0-45.0 mmHg Arterial Blood Partial Pressure O2 100.2 83.0-108.0 mmHg Arterial Blood HCO3 21.0 21.0-28.0 mmol/L Arterial Blood Oxygen Saturation 97.2 94.0-98.0 % Arterial Blood Base Excess -4.5 L -2.0-3.0 mmol/L Arterial Blood Oxyhemoglobin 96.0 94.0-98.0 % Arterial Blood Carboxyhemoglobin 1.0 0.5-1.5 % Arterial Blood Methemoglobin 0.2 0.0-1.5 % Dima Test Yes Blood Gas Total Hemoglobin 12.20 12.0-16.0 g/dL Blood Gas Modality Nasal cannula FiO2 % 32.0 Hemoglobin A1c 6.8 H <5.7 % A1C Vitamin B12 Level 868 211-911 pg/mL Folic Acid 19.06 >5.38 ng/mL Thyroid Stimulating Hormone (TSH) 0.97 0.55-4.78 uIU/mL Platelet Estimate Decreased Large Platelets Few Anisocytosis (manual) Moderate Macrocytosis Moderate Stomatocytes Moderate Prothrombin Time 14.5 H 9.3-11.8 sec Prothrombin Time INR 1.42 H 0.9-1.15 B-Type Natriuretic Peptide 2779.12 0-100 pg/mL Microbiology Date/Time Source Procedure Growth Status 01/10/25 15:18 Blood Blood Culture - Final Enterococcus faecium - VRE Complete 01/10/25 12:45 Ascities Fluid Gram Stain - Final Complete 01/10/25 12:45 Ascities Fluid Body Fluid Culture - Final Complete 01/09/25 14:00 Sputum Gram Stain - Final Complete 01/09/25 14:00 Respiratory Culture - Final Presumptive Lisa albicans Complete 01/09/25 05:00 Nose MRSA Screen - Final Complete Assessment Atrial tachycardia, now in junctional rhythm Septic shock Bacteremia NSTEMI, likely type II secondary to above Chronic HFpEF with right-sided heart failure, NYHA class III Hx of atrial fibrillation (on amiodarone and Eliquis) Chronic pericardial effusion Rule out peripheral arterial disease History of hypertension Hyperlipidemia Liver cirrhosis with frequent paracentesis Ascites Type 2 diabetes mellitus End-stage renal disease on hemodialysis Plan/Recommendation We will continue with the following plan/recommendations (Dr. Santana): Patient seen and examined at bedside with . Transthoracic echocardiogram from 01/12/2025 reveals an EF of 65% with normal LV function and with RV failure. A 2 cm posterior pericardial effusion was also noted but pericardial effusions can be seen in patient's echocardiogram dating back to 2019 as it appears to be a chronic issue. The patient is currently on a Levophed drip for hemodynamic support, which may be contributing to tachycardia episodes. At this time, the patient was in a junctional rhythm with a controlled rate. Unable to initiate rate control with beta-zeenat given vasopressors. Reinitiate beta- blockers once patient off of vasopressor therapy. Patient already on oral amiodarone. Rate now controlled at time of assessment. Continue with close cardiac surveillance, notify cardiology team for any ECG changes. Thank you for allowing us to care for this patient. Please call with any questions or concerns. Critical care time spent: 44 minutes This medical document was created using an electronic medical record system with voice recognition software and computerized dictation system. Although this document has been carefully reviewed, there might still be some phonetic and typographical errors. Occasional wrong-word or ``sound-alike substitutions may have occurred due to the inherent limitations of voice recognition software. These areas are purely typographical due to imperfections of the software programs and do not reflect any compromise in the patient's medical care. Please read the chart carefully and recognize, using context, where these substitutions have occurred. Plan discussed with: Patient, Other (Bedside RN) NYHA Physical activity limitations: Class3(Marked) ordinary (activity causes symtoms) Date of Service: Jan 18, 2025 Billing Provider: EVELIN CALDERON Cardiology Common Codes: 35751-NIGXZUL INP/OBS CARE (High) Cardiology Consultation Codes: 41495-[id number] CONSULT <45MIN EVELIN CALDERON Jan 18, 2025 17:34
[2025-01-18] MEDS: AMIODARONE HCL 200 MG TAB PO SCH (21:15)
--- NOTE | 2025-01-18 21:40 | DVHINCON2 ---
Date Seen: Jan 18, 2025 Referring Physician ELLIE Moreland Reason for Consultation Atrial tachycardia History of Present Illness This is a 59-year-old female with a past medical history of congestive heart failure, paroxysmal atrial fibrillation (on amiodarone and Eliquis at home), hypertension, hyperlipidemia, type 2 diabetes mellitus, liver cirrhosis requiring frequent paracentesis, ascites, end-stage renal disease on hemo dialysis, and chronic anemia who presented to the emergency room on 01/08 with a complaint of altered level of consciousness. At the time of assessment, the patient is alert and oriented to self, place, and situation. Medical history was obtained from medical records. Cardiology has been consulted at this time for atrial tachycardia. Initial twelve lead electrocardiogram done upon admission reveals junctional rhythm with baseline wander in multiple leads (I,II,III, aVF). Chest x-ray dated 01/08: moderate cardiomegaly, improved when compared to the prior chest x-ray of 12/03/2024. At the time of assessment, the patient appears to be in junctional rhythm. Previous cardiac events reviewed, reveals that the patient has gone into atrial tachycardia. The patient was a poor historian and unable to confirm if she sees a word processing supervisor in the outpatient setting. Past Medical History Past medical history reviewed. No other significant than mentioned above. Past Surgical History Past surgical history reviewed. Family History: Diabetes mellitus G8 MOTHER, Onset:50's - 60 Family history: Cardiovascular disease G8 MOTHER (PALPITATIONS) Family history: Diabetes mellitus G8 MOTHER G8 FATHER G8 BROTHER G8 BROTHER Family history: Hypertension G8 MOTHER G8 FATHER Hypertension G8 MOTHER, Onset:40's - 50 Allergies: Coded Allergies: No Known Drug Allergy (Unverified Allergy, Unknown, 11/20/24) Home Meds Reported Medications Insulin Isophane & Reg (Human) (Humulin 70/30 (70-30) 100 Unit/ml) 1 Units/0.01 Ml Inj, 5 UNITS SC BID for 31 Days, #10 12/04/24 Gabapentin (Gabapentin) 100 Mg Cap, 1 CAP PO TID for 90 Days, #270 12/04/24 Docusate Sodium (Colace) 100 Mg Cap, 1 CAP PO BID for 30 Days, #60 12/04/24 Amiodarone Hcl (Amiodarone Hcl) 200 Mg Tab, 1 TAB PO DAILY for 90 Days, #90 12/04/24 Dorzolamide-Timolol (Dorzolamide Hcl/Timolol M) 1 Ml Raya, 1 DROP EACHEYE BID for 50 Days, #10 12/04/24 Midodrine HCl (Midodrine Hydrochloride) 10 Mg Tab, 1 TAB PO TID for 90 Days, #270 12/04/24 Cetirizine Hcl (Cetirizine Hcl) 5 Mg Tab, 1 TAB DAILY 09/05/22 Pantoprazole Sodium Sesquihydr (Pantoprazole Sodium Dr) 40 Mg Tab, 1 TAB DAILY 09/05/22 Diltiazem Hcl (DILTIAZEM HCL ER) 240 Mg Cap, 1 CAP PO DAILY 09/05/22 Hydrocodone-Acetaminophen (Hydrocodone Bitartrate/AC 5-325 mg) 1 Tab Tab, 1 TAB PO TID for PAIN, TAB 11/04/21 Tramadol Hcl (Tramadol Hcl) 50 Mg Tab, 50 MG PO Q6HPRN PRN for PAIN SCALE 7 THRU 10, MG 11/04/21 Ferrous Sulfate (Ferrous Sulfate) 325 Mg Tab, 325 MG PO DAILY for IRON DEFICIE NCY, MG 11/04/21 Apixaban Base (ELIQUIS) 2.5 Mg Tab, 2.5 MG PO DAILY for ARRHYTHMIA for 60 Days, #60 07/24/21 Trazodone HCl (Trazodone Hydrocloride) 100 Mg Tab, 1 TAB PO DAILY for DEPRESSION for 90 Days, #90 07/24/21 Hydroxyzine Hcl (Hydroxyzine Hcl) 25 Mg Tab, 25 MG PO BID for ANXIETY for 90 Days, #180 06/04/21 Acetaminophen W/ Codeine (Tylenol W/Cod #3) 1 Tab Tb, 1 TAB PO Q6HP for PAIN 06/04/21 [place]-3 Fatty Acids (Swengel Oil) 1,000 Mg Cap, 1000 MG PO DAILY for SUPPLEMENT 06/04/21 Carvedilol (Coreg) 6.25 Mg Tab, 6.25 MG PO BID for HYPERTENSION 01/14/21 Amitriptyline HCl (Amitriptyline Hydrochlori) 75 Mg Tab, 75 MG PO HS for ANXIETY, TAB 01/14/21 Hydralazine HCl (Hydralazine HCl) 25 Mg Tab, 25 MG PO Q8HPRN for HYPERTENSION, TAB 01/14/21 Atorvastatin Calcium (Lipitor) 20 Mg Tab, 20 MG PO DAILY for HYPERLILIDEMIA for 90 Days, #90 01/14/21 Furosemide (Furosemide) 80 Mg Tab, 80 MG PO DAILY for EDEMA 01/27/18 Sevelamer Carbonate (Renvela) 800 Mg Tab, 2 TAB PO TIDWM for 90 Days, #540 01/27/18 Current Medications Current Medications Medications (Trade) Dose Ordered Sig/Honey Route PRN Reason Start Time Stop Time Status Last Admin Amiodarone HCl (Cordarone Tablet) 200 mg Q12HR PO 01/17/25 22:00 01/18/25 08:41 DC 01/18/25 08:07 Amiodarone HCl (Cordarone Tablet) 400 mg Q12HR PO 01/18/25 22:00 Review of Systems Constitutional: No symptom reported Ears, Nose, & Throat: No symptom reported Eyes: No symptom reported Neurological: Altered level of consciousness Pulmonary/Respiratory: No symptoms reported Cardiovascular: No symptom reported Gastrointestinal: No symptom reported Genitourinary: No symptom reported Musculoskeletal: No symptom reported Skin: No symptom reported Psychiatric: No symptom reported Endocrine: No symptom reported Hematologic/Lymphatic: No symptom reported Vital Signs Vital Signs Date Time Temp Pulse Resp B/P (MAP) Pulse Ox O2 Delivery O2 Flow Rate FiO2 01/18/25 17:50 93 01/18/25 17:49 12 100 Nasal Cannula* 2 28 01/18/25 17:45 114/61 (78) 01/18/25 16:30 99.0 99.0 Physical Exam GENERAL: Alert and oriented x 3. No acute distress. EYES: PERRL, EOMI. Anicteric. HENT: Moist mucous membranes. LUNGS: Clear to auscultation bilaterally. CARDIOVASCULAR: Regular rate and rhythm. ABDOMEN: Ascites, large distended abdomen. EXTREMITIES: No edema. NEUROLOGIC: No focal neurological deficits. SKIN: Mottling to bilateral lower extremities. Bilateral feet cool to touch. Labs/Diagnostic Data Labs Test 01/18/25 16:38 01/18/25 04:40 01/14/25 05:42 01/13/25 04:41 Range/Units POC Glucose 362 H 70-106 mg/dl White Blood Count 10.6 4.4-10.8 10^3/uL Red Blood Count 3.60 L 4.0-5.20 10^6/uL Hemoglobin 11.6 L 12.2-16.2 g/dL Hematocrit 35.3 L 36.0-46.0 % Mean Corpuscular Volume 98.1 80.0-100.0 fL Mean Corpuscular Hemoglobin 32.2 H 28.0-32.0 pg Mean Corpuscular Hemoglobin Concent 32.8 32.0-36.0 g/dL Red Cell Distribution Width 16.5 H 11.8-14.3 % Platelet Count 135 L 140-450 10^3/uL Mean Platelet Volume 10.0 6.9-10.8 fL Neutrophils (%) (Auto) 78.5 37.0-80.0 % Lymphocytes (%) (Auto) 6.4 L 10.0-50.0 % Monocytes (%) (Auto) 11.1 0.0-12.0 % Eosinophils (%) (Auto) 2.8 0.0-7.0 % Basophils (%) (Auto) 1.2 0.0-2.0 % Neutrophils # (Auto) 8.3 1.6-8.6 10 ^3/uL Lymphocytes # (Auto) 0.7 0.4-5.4 10 ^3/uL Monocytes # (Auto) 1.2 0-1.3 10 ^3/uL Eosinophils # (Auto) 0.3 0-0.8 10 ^3/uL Basophils # (Auto) 0.1 0-0.2 10 ^3/uL Nucleated Red Blood Cells 0.0 % Sodium Level 134 L 136-145 mmol/L Potassium Level 3.8 3.5-5.1 mmol/L Chloride Level 93 L 98-107 mmol/L Carbon Dioxide Level 27 20-31 mmol/L Anion Gap 14 5-15 Blood Urea Nitrogen 19 9-23 mg/dL Creatinine 3.63 H 0.550-1.02 mg/dL Glomerular Filtration Rate Calc 14 >90 mL/min BUN/Creatinine Ratio 5.2 L 10.0-20.0 Serum Glucose 150 H 74-106 mg/dL Calcium Level 9.4 8.7-10.4 mg/dL Magnesium Level 2.2 1.6-2.6 mg/dL Total Bilirubin 1.0 0.2-1.0 mg/dL Aspartate Amino Transferase (AST) < 8 L 13-40 U/L Alanine Aminotransferase (ALT) < 9 7-40 U/L Alkaline Phosphatase 182 H 46-116 U/L Total Protein 5.6 L 5.7-8.2 g/dL Albumin 3.8 3.2-4.8 g/dL Ammonia 16 11-32 umol/L Test 01/10/25 12:45 01/10/25 05:19 01/09/25 09:07 01/09/25 04:28 Range/Units Body Fluid Source Peritoneal fluid Body Fluid pH 8.0 Body Fluid WBC (Manual) 218 H 0-200 CUMM Body Fluid RBC (Manual) 446 0-2000 CUMM Body Fluid Mononuclear Cells 20 % Body Fluid Polymorphonuclear Cells 80 H 0-25 % Body Fluid Glucose 126 . mg/dL Body Fluid Total Protein 3.0 . g/dL Body Fluid Lactate Dehydrogenase 81 . IU/L Phosphorus Level 5.1 2.4-5.1 mg/dL Iron Level 21 L 50-170 ug/dL Total Iron Binding Capacity 120 L 250-425 ug/dL Percent Iron Saturation 17.5 15-50 % Ferritin 257.9 10-291 ng/mL Hepatitis A IgM Antibody Negative Hepatitis B Surface Antigen Negative Negative Hepatitis B Core IgM Antibody Negative Negative Hepatitis C Antibody Negative Negative Lactic Acid Level 2.0 0.4-2.0 mmol/L Troponin I High Sensitivity 593 *H </=34 ng/L Test 01/09/25 03:50 01/09/25 01:15 01/09/25 00:57 01/08/25 19:36 Range/Units Influenza Type A Antigen Negative Negative Influenza Type B Antigen Negative Negative SARS-CoV-2 Antigen (Rapid) Negative NEGATIVE Blood Gas Specimen Type Arterial Blood Gas Sample Site Left brachial Blood Gas Patient Temperature 37.0 Arterial Blood Date Drawn [id number] Arterial Blood pH 7.337 L 7.350-7.450 Arterial Blood Partial Pressure CO2 40.0 32.0-45.0 mmHg Arterial Blood Partial Pressure O2 100.2 83.0-108.0 mmHg Arterial Blood HCO3 21.0 21.0-28.0 mmol/L Arterial Blood Oxygen Saturation 97.2 94.0-98.0 % Arterial Blood Base Excess -4.5 L -2.0-3.0 mmol/L Arterial Blood Oxyhemoglobin 96.0 94.0-98.0 % Arterial Blood Carboxyhemoglobin 1.0 0.5-1.5 % Arterial Blood Methemoglobin 0.2 0.0-1.5 % Dima Test Yes Blood Gas Total Hemoglobin 12.20 12.0-16.0 g/dL Blood Gas Modality Nasal cannula FiO2 % 32.0 Hemoglobin A1c 6.8 H <5.7 % A1C Vitamin B12 Level 868 211-911 pg/mL Folic Acid 19.06 >5.38 ng/mL Thyroid Stimulating Hormone (TSH) 0.97 0.55-4.78 uIU/mL Platelet Estimate Decreased Large Platelets Few Anisocytosis (manual) Moderate Macrocytosis Moderate Stomatocytes Moderate Prothrombin Time 14.5 H 9.3-11.8 sec Prothrombin Time INR 1.42 H 0.9-1.15 B-Type Natriuretic Peptide 2779.12 0-100 pg/mL Microbiology Date/Time Source Procedure Growth Status 01/17/25 17:30 Blood Blood Culture - Preliminary NO GROWTH AFTER 24 HOURS OF INCUBATION. Resulted 01/10/25 12:45 Ascities Fluid Gram Stain - Final Complete 01/10/25 12:45 Ascities Fluid Body Fluid Culture - Final Complete 01/09/25 14:00 Sputum Gram Stain - Final Complete 01/09/25 14:00 Respiratory Culture - Final Presumptive Lisa albicans Complete 01/09/25 05:00 Nose MRSA Screen - Final Complete Assessment Atrial tachycardia, now in junctional rhythm. NSTEMI, likely type II. Chronic HFpEF with right-sided heart failure, NYHA class III. Hx of atrial fibrillation (on amiodarone and Eliquis). Chronic pericardial effusion. History of hypertension. Hyperlipidemia. Liver cirrhosis with frequent paracentesis. Ascites. Type 2 diabetes mellitus. End-stage renal disease on hemodialysis. Plan/Recommendation I agree with your ongoing assessment and care of plan. Patient has been seen by Kim Nunez NP on my behalf, her and I discussed the plan with the patient. Transthoracic echocardiogram from 01/12/2025 reveals an EF of 65% with normal LV function and with RV failure. A 2 cm posterior pericardial effusion was also noted but pericardial effusions can be seen in patient's echocardiogram dating back to 2019 it appears to be a chronic issue. The patient is currently on a Levophed drip for hemodynamic support, which may be contributing to tachycardia. At this time, the patient was in a junctional rhythm with a controlled rate. Unable to initiate rate control with beta-zeenat given vasopressors. Patient already on oral amiodarone. Rate now controlled at time of assessment. Continue with close cardiac surveillance, notify cardiology team for any ECG changes. Additional plan as per the hospital course. Plan discussed with: Patient NYHA Physical activity limitations: Class3(Marked) ordinary Date of Service: Jan 18, 2025 Billing Provider: SOREN MARTINEZ MD Cardiology Common Codes: 70714-[facility](High Cardiology Consultation Codes: 69397-HRWCUVNME CONSULT <45MIN SOREN MARTINEZ MD Jan 18, 2025 18:06
[2025-01-19] VITALS (98 sets, daily range): BP systolic 87–132; BP diastolic 46–84; PULSE 84–150; RESP 7–23; TEMP 97.1–99; O2SAT 83–100
[2025-01-19 06:23] LABS: Basophils # (auto) 0.1 10 ^3/uL (0-0.2); Basophils % (auto) 1.2 % (0.0-2.0); Eosinophils # (auto) 0.5 10 ^3/uL (0-0.8); Eosinophils % (auto) 3.9 % (0.0-7.0); Hematocrit 32.7 % (36.0-46.0); Hemoglobin 10.7 g/dL (12.2-16.2); Lymphocytes % (auto) 8.1 % (10.0-50.0); Mean Corpuscular Hemoglobin 31.7 pg (28.0-32.0); Mean Corpuscular Hgb Conc. 32.7 g/dL (32.0-36.0); Mean Corpuscular Volume 96.9 fL (80.0-100.0); Monocytes # (auto) 1.2 10 ^3/uL (0-1.3); Monocytes % (auto) 9.7 % (0.0-12.0); Neutrophils # (auto) 9.1 10 ^3/uL (1.6-8.6); Neutrophils % (auto) 77.1 % (37.0-80.0); Platelet Count (auto) 129 10^3/uL (140-450); Red Blood Cells 3.38 10^6/uL (4.0-5.20); Red Cell Distribution Width 16.2 % (11.8-14.3); White Blood Cell 11.8 10^3/uL (4.4-10.8)
[2025-01-19 06:31] LABS: Calcium 8.7 mg/dL (8.7-10.4); Potassium 4.5 mmol/L (3.5-5.1)
[2025-01-19 06:32] LABS: Anion Gap 13 (5-15); Carbon Dioxide 25 mmol/L (20-31)
[2025-01-19 06:38] LABS: BUN/Creatinine Ratio 6.3 (10.0-20.0)
[2025-01-19 06:43] LABS: Blood Urea Nitrogen 26 mg/dL (9-23); Chloride 91 mmol/L (98-107); Glucose 156 mg/dL (74-106); Sodium 129 mmol/L (136-145)
[2025-01-19] MEDS: SODIUM CHL 0.9% 1000 ML BAG XX ONE (07:00)
--- NOTE | 2025-01-19 10:48 | DVHPN2 ---
Progress Note Date Seen: Jan 19, 2025 Medical Necessity Reason Pt with a Central, PICC or Fol: No The following are medically ne: Central Line Subjective Patient reports: Other Objective vital signs Vital Sign Date Time Temp Pulse Resp B/P (MAP) Pulse Ox O2 Delivery O2 Flow Rate FiO2 01/19/25 08:00 97.7 92 13 125/78 (94) 97.7 01/19/25 07:00 86 01/19/25 06:00 Oxymizer 15 N/A Total Intake and Output 01/18/25 01/18/25 01/19/25 15:00 23:00 07:00 Intake Total 37.504 ml 817.504 ml 422.816 ml Output Total 0 ml 0 ml Balance 37.504 ml 817.504 ml 422.816 ml medications Current Medications Medications Dose Ordered Sig/Honey Route Start Time Stop Time Status Last Admin Dose Admin Diagnostic Test (Pha) 1 strip Q6HR 01/09/25 06:00 01/19/25 06:19 1 STRIP Insulin Human Regular Q6HR SC 01/09/25 06:00 01/18/25 18:17 10 UNITS Dextrose 50 ml UD PRN IV 01/09/25 00:30 01/18/25 10:40 50 ML Pantoprazole Sodium 40 mg DAILY IV 01/10/25 10:00 01/18/25 08:06 40 MG Ondansetron HCl 4 mg Q8HPRN PRN IV 01/09/25 10:30 Acetaminophen 650 mg Q6HP PRN PO 01/09/25 10:30 01/11/25 00:19 650 MG Ferrous Sulfate 325 mg BIDWM PO 01/10/25 18:00 01/19/25 09:15 325 MG Sevelamer HCl 800 mg TIDWM PO 01/10/25 18:00 01/19/25 09:15 800 MG Gabapentin 100 mg TID PO 01/11/25 14:00 01/19/25 06:22 100 MG Norepinephrine Bitartrate 32 mg/ Sodium Chloride 250 ml @ 0.938 mls/ hr Q24H IV 01/12/25 12:00 01/18/25 12:37 4.688 MLS/HR Midodrine 5 mg TID@0600,1200,1800 PO 01/12/25 18:00 01/19/25 06:21 5 MG Emollient Ointment 1 applic PRN PRN TOP 01/14/25 10:30 Linezolid 300 ml @ 150 mls/hr Q12HR@0400,1600 IV 01/14/25 16:00 01/19/25 04:12 150 MLS/HR Albumin Human 100 ml @ 100 mls/hr PRN PRN IV 01/15/25 10:30 01/17/25 18:15 100 MLS/HR Multivit/Ca Carb/ B Cmplx/FA/Prenat 1 tab DAILY PO 01/16/25 10:00 01/18/25 08:06 1 TAB Fluconazole 200 mg DAILY PO 01/17/25 10:15 01/18/25 08:07 200 MG Throat Lozenges 1 moriah Q2HP PRN MT 01/17/25 17:30 Amiodarone HCl 400 mg Q12HR PO 01/18/25 22:00 01/18/25 21:15 400 MG Examination: GENERAL:Abnormal, CVS:Abnormal, SKIN:Abnormal laboratory and microbiology Laboratory Tests 01/19/25 05:27 Test 01/19/25 05:27 Range/Units Serum Glucose 156 H 74-106 mg/dL Microbiology Date/Time Source Procedure Growth Status 01/17/25 17:30 Blood Blood Culture - Preliminary NO GROWTH AFTER 24 HOURS OF INCUBATION. Resulted 01/10/25 12:45 Ascities Fluid Gram Stain - Final Complete 01/10/25 12:45 Ascities Fluid Body Fluid Culture - Final Complete 01/09/25 14:00 Sputum Gram Stain - Final Complete 01/09/25 14:00 Respiratory Culture - Final Presumptive Lisa albicans Complete 01/09/25 05:00 Nose MRSA Screen - Final Complete Problem List/Assessment/Plan Problem List/Assessment/Plan Admitted for fluid overload in the setting of refractory ascites Shock cardiogenic versus septic End-stage renal disease on hemodialysis Heart failure with recent pericardial drainage due to recurrent pericardial effusions Refractory ascites due to cirrhosis with frequent paracentesis Diabetes hyperkalemia VRE bacteremia pending new BCX results HD today midodrine po levophed keep map > 65 Cardiology- posterior pericardial effusion RV failure s/p paracentesis 01/10/25 renal diet Plan discussed with: Patient My Orders My Orders Orders - MARLEY LARSEN MD Procedure Category Date Status Time Hemodialysis Orders ORDERS 01/19/25 Transmitted 07:00 Dialysis Nursing REGINALD 01/19/25 In Process Message 07:00 Document Fluid Input REGINALD 01/19/25 In Process And Outpu 07:00 Dietary Evaluation Review Comments: 1) Nepro carb steady 240ml BID (ordered per [facility]NS protocol) 2) Neprhro-Kaela 1 tab daily 3) Continue current plan of care Expected Outcomes/Goals: To meet >75% estimated needs Fu 3-5 days MARLEY LARSEN MD Jan 19, 2025 10:48
[2025-01-19] MEDS: PHENYLEPHRINE INJ 80 MG in SODIUM CHL 0.9% 242 ML IV SCH (12:00)
--- NOTE | 2025-01-19 12:07 | ECG ---
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
[2025-01-19] MEDS: LORazepam 2MG/ML-1ML VIAL IV PRN (12:29)
--- NOTE | 2025-01-19 12:31 | DVHPN2 ---
Progress Note - Dictate Date Seen: Jan 19, 2025 Medical Necessity Reason Pt with a Central, PICC or Fol: No The following are medically ne: Central Line vital signs Vital Sign Date Time Temp Pulse Resp B/P (MAP) Pulse Ox O2 Delivery O2 Flow Rate FiO2 01/19/25 08:00 97.7 92 13 125/78 (94) 97.7 01/19/25 07:00 86 01/19/25 06:00 Oxymizer 15 N/A Total Intake and Output 01/18/25 01/18/25 01/19/25 15:00 23:00 07:00 Intake Total 37.504 ml 817.504 ml 422.816 ml Output Total 0 ml 0 ml Balance 37.504 ml 817.504 ml 422.816 ml medications Current Medications Medications Dose Ordered Sig/Honey Route Start Time Stop Time Status Last Admin Dose Admin Diagnostic Test (Pha) 1 strip Q6HR 01/09/25 06:00 01/19/25 12:03 1 STRIP Insulin Human Regular Q6HR SC 01/09/25 06:00 01/18/25 18:17 10 UNITS Dextrose 50 ml UD PRN IV 01/09/25 00:30 01/18/25 10:40 50 ML Pantoprazole Sodium 40 mg DAILY IV 01/10/25 10:00 01/18/25 08:06 40 MG Ondansetron HCl 4 mg Q8HPRN PRN IV 01/09/25 10:30 Acetaminophen 650 mg Q6HP PRN PO 01/09/25 10:30 01/11/25 00:19 650 MG Ferrous Sulfate 325 mg BIDWM PO 01/10/25 18:00 01/19/25 09:15 325 MG Sevelamer HCl 800 mg TIDWM PO 01/10/25 18:00 01/19/25 12:11 800 MG Gabapentin 100 mg TID PO 01/11/25 14:00 01/19/25 06:22 100 MG Norepinephrine Bitartrate 32 mg/ Sodium Chloride 250 ml @ 0.938 mls/ hr Q24H IV 01/12/25 12:00 01/18/25 12:37 4.688 MLS/HR Midodrine 5 mg TID@0600,1200,1800 PO 01/12/25 18:00 01/19/25 12:11 5 MG Emollient Ointment 1 applic PRN PRN TOP 01/14/25 10:30 Linezolid 300 ml @ 150 mls/hr Q12HR@0400,1600 IV 01/14/25 16:00 01/19/25 04:12 150 MLS/HR Albumin Human 100 ml @ 100 mls/hr PRN PRN IV 01/15/25 10:30 01/17/25 18:15 100 MLS/HR Multivit/Ca Carb/ B Cmplx/FA/Prenat 1 tab DAILY PO 01/16/25 10:00 01/18/25 08:06 1 TAB Fluconazole 200 mg DAILY PO 01/17/25 10:15 01/18/25 08:07 200 MG Throat Lozenges 1 moriah Q2HP PRN MT 01/17/25 17:30 Amiodarone HCl 400 mg Q12HR PO 01/18/25 22:00 01/18/25 21:15 400 MG Lorazepam 1 mg Q2HP PRN IV 01/19/25 12:00 Morphine Sulfate 2 mg Q2HPRN PRN IV 01/19/25 12:00 Phenylephrine HCl 80 mg/Sodium Chloride 250 ml @ 7.5 mls/hr Q24H IV 01/19/25 12:00 laboratory and microbiology Laboratory Tests 01/19/25 05:27 Test 01/19/25 05:27 Range/Units Serum Glucose 156 H 74-106 mg/dL Assessment/Plan Impression Acute hypoxemic respiratory failure Liver cirrhosis ESRD on HD Ascites Patient seen and examined Events Low oxygen requirements On 2 liters nasal cannula remains On pressors for hemodynamic support levophed started on stress dose steroids ?adrenal insufficiency delirious undergoing HD Labs and imaging reviewed Management Supplemental oxygen Titrate to maintain sats 90% or above Incentive spirometry Aspiration precautions Continue antibiotics Bronchodilators Monitor renal function HD as per nephrology Management deferred Monitor electrolytes Supplement as needed DVT prophylaxis Critical care time 35 minutes Dietary Evaluation Review Comments: 1) Nepro carb steady 240ml BID (ordered per ONS protocol) 2) Neprhro-Kaela 1 tab daily 3) Continue current plan of care Expected Outcomes/Goals: To meet >75% estimated needs Fu 3-5 days Plan discussed with: Other (rn) MARIA FERNANDA CHAMBERS MD Jan 19, 2025 12:30
--- NOTE | 2025-01-19 13:59 | DVHPN2 ---
Subjective Complaining of abdominal distention and pain along with chest pain; confused Reviewed: Care Plan, H&P, Labs, Medications, Previous Orders, Radiology, Other (Consultations) Changes from previous H/P or p: Changes Objective Vitals Vital Signs Date Time Temp Pulse Resp B/P (MAP) Pulse Ox O2 Delivery O2 Flow Rate FiO2 01/19/25 12:30 138 10 108/69 (82) 01/19/25 12:00 100 Oxymizer 15 N/A 01/19/25 08:00 97.7 97.7 Intake/Output Intake and Output 01/19/25 07:00 Intake Total 1277.824 ml Output Total 0 ml Balance 1277.824 ml Intake Oral 870 ml IV Total 407.824 ml Output Urine Total 0 ml General Appearance: Alert, Oriented X3, Cooperative, moderate distress HEENT: Atraumatic, Other (Blind) Lungs: Other (Decreased air entry bilateral) Cardiovascular: Normal S1, Normal S2, Other (Tracking failure) Abdomen: Normal bowel sounds, Soft, Other (Severely distended with ascites) Extremities: Other (Left upper extremity AV fistula with good bruit and thrill) Neuro: Normal speech, Cranial nerves 3-12 NL, Other (Reviewed) Psych/Mental Status: Mental status NL, Mood NL Medications Current Medications Medications Dose Ordered Sig/Honey Route Start Time Stop Time Status Last Admin Dose Admin Diagnostic Test (Pha) 1 strip Q6HR 01/09/25 06:00 01/19/25 12:03 1 STRIP Insulin Human Regular Q6HR SC 01/09/25 06:00 01/18/25 18:17 10 UNITS Dextrose 50 ml UD PRN IV 01/09/25 00:30 01/18/25 10:40 50 ML Pantoprazole Sodium 40 mg DAILY IV 01/10/25 10:00 01/19/25 13:34 40 MG Ondansetron HCl 4 mg Q8HPRN PRN IV 01/09/25 10:30 Acetaminophen 650 mg Q6HP PRN PO 01/09/25 10:30 01/11/25 00:19 650 MG Ferrous Sulfate 325 mg BIDWM PO 01/10/25 18:00 01/19/25 09:15 325 MG Sevelamer HCl 800 mg TIDWM PO 01/10/25 18:00 01/19/25 12:11 800 MG Gabapentin 100 mg TID PO 01/11/25 14:00 01/19/25 06:22 100 MG Norepinephrine Bitartrate 32 mg/ Sodium Chloride 250 ml @ 0.938 mls/ hr Q24H IV 01/12/25 12:00 01/18/25 12:37 4.688 MLS/HR Midodrine 5 mg TID@0600,1200,1800 PO 01/12/25 18:00 01/19/25 12:11 5 MG Emollient Ointment 1 applic PRN PRN TOP 01/14/25 10:30 Linezolid 300 ml @ 150 mls/hr Q12HR@0400,1600 IV 01/14/25 16:00 01/19/25 04:12 150 MLS/HR Albumin Human 100 ml @ 100 mls/hr PRN PRN IV 01/15/25 10:30 01/17/25 18:15 100 MLS/HR Multivit/Ca Carb/ B Cmplx/FA/Prenat 1 tab DAILY PO 01/16/25 10:00 01/19/25 13:36 1 TAB Fluconazole 200 mg DAILY PO 01/17/25 10:15 01/19/25 13:36 200 MG Throat Lozenges 1 moriah Q2HP PRN MT 01/17/25 17:30 Amiodarone HCl 400 mg Q12HR PO 01/18/25 22:00 01/19/25 13:36 400 MG Lorazepam 1 mg Q2HP PRN IV 01/19/25 12:00 01/19/25 12:29 1 MG Morphine Sulfate 2 mg Q2HPRN PRN IV 01/19/25 12:00 Phenylephrine HCl 80 mg/Sodium Chloride 250 ml @ 7.5 mls/hr Q24H IV 01/19/25 12:00 Laboratory Results Laboratory Tests 01/19/25 05:27 Chemistry Test 01/19/25 05:27 Calcium Level 8.7 mg/dL (8.7-10.4) Microbiology Microbiology Date/Time Source Procedure Growth Status 01/17/25 17:30 Blood Blood Culture - Preliminary NO GROWTH AFTER 24 HOURS OF INCUBATION. Resulted 01/10/25 12:45 Ascities Fluid Gram Stain - Final Complete 01/10/25 12:45 Ascities Fluid Body Fluid Culture - Final Complete 01/09/25 14:00 Sputum Gram Stain - Final Complete 01/09/25 14:00 Respiratory Culture - Final Presumptive Lisa albicans Complete 01/09/25 05:00 Nose MRSA Screen - Final Complete Labs and/or images reviewed: Labs reviewed by me, Image(s) reviewed by me Assessment/Plan Assessment/Plan Covering: Acute hepatic/metabolic/toxic encephalopathy Acute hypoxic respiratory failure due to presumptive Lisa albicans pneumonia, and acute on chronic Septic shock due to Enterococcus faecium - VRE bacteremia and presumptive Lisa albicans pneumonia Decompensated liver cirrhosis with refractory ascites status post recurrent paracentesis, thrombocytopenia, and coagulopathy Chest pain; to rule out ACS Diabetes mellitus type 2 Blindness along with hearing loss Atrial tachycardia, now in junctional rhythm. NSTEMI, likely type II. Acute on chronic HFpEF with right-sided heart failure; with chronic pericardial effusion status post recurrent pericardiocentesis History of atrial fibrillation Normocytic anemia; most likely inflammatory End-stage renal disease on hemodialysis Reviewed lab work including ABGs Reviewed EKG; no ischemic changes Reviewed imaging studies including chest x-rays Reviewed available cultures Continue oxygen therapy via Oxymizer as indicated Continue IV pressors as indicated Continue IV antibiotics Continue hemodialysis as per Nephrology Nephrology, Cardiology, and pulmonology are following Telemetry Continue close monitoring Goals of care discussed with the patient for 20 minutes; full code Critical Care time of 99 minutes Late Entry. This medical document was created using an electronic medical record system with computerized dictation system. Although this document has been carefully reviewed, there might still be some phonetic and typographical errors. These areas are purely typographical due to imperfections of the software programs, and do not reflect any compromise in the patient's medical care. Plan discussed with: Patient, Other (Nurse) My Orders Orders - KAILEE COLON MD Procedure Category Date Status Time Lorazepam 2mg/Ml Inj PHA 01/19/25 In Process (Ativan Inj) 12:00 Morphine Sulfate PHA 01/19/25 In Process Injection 12:00 Troponin-I Hs LAB 01/19/25 In Process 11:49 Troponin-I Hs LAB 01/19/25 Logged 12:49 Troponin-I Hs LAB 01/19/25 Logged 14:49 Magnesium LAB 01/19/25 Logged 11:49 Ammonia LAB 01/19/25 In Process 11:49 Sodium Chl 0.9% PHA 01/19/25 In Process (Ns... 12:00 Date of Service: Jan 19, 2025 Billing Provider: KAILEE COLON MD Common Visit Codes: 61635-OZLNCYEM CARE 30-74 MIN (99 minutes), 22399-[id number] CARE-EACH +30MIN Secondary Visit Codes: 36314-FOSIBPCO CARE PLAN 30 MINUTES (20 minutes) KAILEE COLON MD Jan 19, 2025 13:59
[2025-01-19] MEDS: guaiFENesin 200 MG/10 ML UD PO ONE (16:03)
[2025-01-19] MEDS: ONDANSETRON HCL 4 MG/2 ML VIAL IV PRN (17:24)
[2025-01-19] MEDS ORDERED: LABETALOL HCL 20 MG/4 ML VL IV PRN (19:45)
--- NOTE | 2025-01-19 21:06 | DVHPN2 ---
Progress Note - Dictate Date Seen: Jan 19, 2025 Medical Necessity Reason Pt with a Central, PICC or Fol: Yes The following are medically ne: Central Line Subjective Patient was seen and evaluated in follow up in the ICU. Patient is complaining of SOB. Patient is on high flow oxygen, 12 L. Patient receiving vasopressors for hemodynamics support. WBC 11.8, TROP 135. vital signs Vital Sign Date Time Temp Pulse Resp B/P (MAP) Pulse Ox O2 Delivery O2 Flow Rate FiO2 01/19/25 18:45 100 22 115/74 (88) 94 01/19/25 18:36 Hi-Flow NC 12 N/A 01/19/25 16:00 99.0 99.0 Total Intake and Output 01/18/25 01/18/25 01/19/25 15:00 23:00 07:00 Intake Total 37.504 ml 817.504 ml 427.504 ml Output Total 0 ml 0 ml Balance 37.504 ml 817.504 ml 427.504 ml medications Current Medications Medications Dose Ordered Sig/Honey Route Start Time Stop Time Status Last Admin Dose Admin Diagnostic Test (Pha) 1 strip Q6HR 01/09/25 06:00 01/19/25 17:25 1 STRIP Insulin Human Regular Q6HR SC 01/09/25 06:00 01/19/25 17:45 3 UNITS Dextrose 50 ml UD PRN IV 01/09/25 00:30 01/18/25 10:40 50 ML Pantoprazole Sodium 40 mg DAILY IV 01/10/25 10:00 01/19/25 13:34 40 MG Ondansetron HCl 4 mg Q8HPRN PRN IV 01/09/25 10:30 01/19/25 17:24 4 MG Acetaminophen 650 mg Q6HP PRN PO 01/09/25 10:30 01/11/25 00:19 650 MG Ferrous Sulfate 325 mg BIDWM PO 01/10/25 18:00 01/19/25 17:24 325 MG Sevelamer HCl 800 mg TIDWM PO 01/10/25 18:00 01/19/25 17:25 800 MG Gabapentin 100 mg TID PO 01/11/25 14:00 01/19/25 06:22 100 MG Norepinephrine Bitartrate 32 mg/ Sodium Chloride 250 ml @ 0.938 mls/ hr Q24H IV 01/12/25 12:00 01/18/25 12:37 4.688 MLS/HR Midodrine 5 mg TID@0600,1200,1800 PO 01/12/25 18:00 01/19/25 17:24 5 MG Emollient Ointment 1 applic PRN PRN TOP 01/14/25 10:30 Linezolid 300 ml @ 150 mls/hr Q12HR@0400,1600 IV 01/14/25 16:00 01/19/25 16:04 150 MLS/HR Albumin Human 100 ml @ 100 mls/hr PRN PRN IV 01/15/25 10:30 01/17/25 18:15 100 MLS/HR Multivit/Ca Carb/ B Cmplx/FA/Prenat 1 tab DAILY PO 01/16/25 10:00 01/19/25 13:36 1 TAB Fluconazole 200 mg DAILY PO 01/17/25 10:15 01/19/25 13:36 200 MG Throat Lozenges 1 moriah Q2HP PRN MT 01/17/25 17:30 Amiodarone HCl 400 mg Q12HR PO 01/18/25 22:00 01/19/25 13:36 400 MG Lorazepam 1 mg Q2HP PRN IV 01/19/25 12:00 01/19/25 12:29 1 MG Morphine Sulfate 2 mg Q2HPRN PRN IV 01/19/25 12:00 Phenylephrine HCl 80 mg/Sodium Chloride 250 ml @ 7.5 mls/hr Q24H IV 01/19/25 12:00 Hydrocortisone Sodium Succinate 100 mg Q8HR IV 01/19/25 22:00 Labetalol HCl 2.5 mg Q6HP PRN IV 01/19/25 19:45 objective GENERAL: Alert and oriented x 3. No acute distress. EYES: PERRL, EOMI. Anicteric. HENT: Moist mucous membranes. LUNGS: Clear to auscultation bilaterally. CARDIOVASCULAR: Regular rate and rhythm. ABDOMEN: Ascites, large distended abdomen. EXTREMITIES: No edema. NEUROLOGIC: No focal neurological deficits. SKIN: Mottling to bilateral lower extremities. Bilateral feet cool to touch. laboratory and microbiology Laboratory Tests 01/19/25 05:27 Test 01/19/25 05:27 Range/Units Serum Glucose 156 H 74-106 mg/dL Problem List Atrial tachycardia, now in junctional rhythm. NSTEMI, likely type II. Chronic HFpEF with right-sided heart failure, NYHA class III. Hx of atrial fibrillation (on amiodarone and Eliquis). Chronic pericardial effusion. History of hypertension. Hyperlipidemia. Liver cirrhosis with frequent paracentesis. Ascites. Type 2 diabetes mellitus. End-stage renal disease on hemodialysis. Assessment/Plan Continued all current supportive medical care. Amiodarone. GI prophylactics. IV antibiotics as ordered. Morphine for pain management. Vasopressors for hemodynamic support. Additional plan as per the hospital course. Critical care time of 45 minutes provided to include time spent evaluation of patient at bedside, when appropriate patient/family education for diagnosis, treatment plan, review of pertinent medical information and discussion of care with specialty providers and PCP. Dietary Evaluation Review Comments: 1) Nepro carb steady 240ml BID (ordered per [facility] protocol) 2) Neprhro-Kaela 1 tab daily 3) Continue current plan of care Expected Outcomes/Goals: To meet >75% estimated needs Fu 3-5 days Plan discussed with: Patient SOREN MARTINEZ MD Jan 19, 2025 20:35
[2025-01-19] MEDS: HYDROCORTISONE SOD SUCC 100 MG/2ML INJ VIAL IV SCH (22:47)
[2025-01-20] VITALS (105 sets, daily range): BP systolic 95–130; BP diastolic 52–81; PULSE 80–94; RESP 8–24; TEMP 97.7–99.1; O2SAT 71–100
--- NOTE | 2025-01-20 06:00 | DVH ---
CHEST RADIOGRAPH Indication: SOB, DECREASED O2 SATURATION Technique: Single frontal view of the chest was obtained COMPARISON: XY CHEST PORTABLE on DOS: 01/16/25, XY CHEST PORTABLE on DOS: 01/11/25, XY CHEST PORTABLE o n DOS: 01/08/25, XY CHEST XRAY 1 VIEW on DOS: 12/03/24, CXRP on DOS: 09/16/22 FINDINGS: Lines and Tubes: None Lungs: Significant interval progression in diffuse bilateral pulmonary airspace disease throughout elina th lungs. Stable appearing right pleural effusion. Left pleural effusion not adequately excluded. No pneumothorax. Cardiomediastinal contours: Cardiomegaly. Bones: Unremarkable IMPRESSION: 1. Interval progression in diffuse bilateral pulmonary airspace disease throughout all lung zones. 2. Right pleural effusion. 3. Cardiomegaly.
[2025-01-20 07:15] LABS: Base Excess 1.6 mmol/L (-2.0-3.0)
[2025-01-20 08:34] LABS: Basophils # (auto) 0.1 10 ^3/uL (0-0.2); Basophils % (auto) 0.5 % (0.0-2.0); Eosinophils # (auto) 0 10 ^3/uL (0-0.8); Eosinophils % (auto) 0.1 % (0.0-7.0); Hematocrit 34.5 % (36.0-46.0); Hemoglobin 11.1 g/dL (12.2-16.2); Lymphocytes # (auto) 0.2 10 ^3/uL (0.4-5.4); Mean Corpuscular Hemoglobin 31.6 pg (28.0-32.0); Mean Corpuscular Hgb Conc. 32.1 g/dL (32.0-36.0); Mean Corpuscular Volume 98.3 fL (80.0-100.0); Monocytes # (auto) 0.1 10 ^3/uL (0-1.3); Monocytes % (auto) 0.9 % (0.0-12.0); Neutrophils # (auto) 9.7 10 ^3/uL (1.6-8.6); Neutrophils % (auto) 96.5 % (37.0-80.0); Platelet Count (auto) 104 10^3/uL (140-450); Red Cell Distribution Width 16.5 % (11.8-14.3)
[2025-01-20 08:52] LABS: Anion Gap 13 (5-15); BUN/Creatinine Ratio 6.7 (10.0-20.0); Calcium 9.4 mg/dL (8.7-10.4); Carbon Dioxide 26 mmol/L (20-31); Potassium 4.9 mmol/L (3.5-5.1); Total Protein 5.9 g/dL (5.7-8.2)
[2025-01-20 08:53] LABS: Albumin 3.8 g/dL (3.2-4.8); Bilirubin, Total 1.2 mg/dL (0.2-1.0)
[2025-01-20 08:56] LABS: Alanine Aminotransferase < 9 U/L (7-40); Alkaline Phosphatase 204 U/L (46-116); Aspartate Aminotransferase 9 U/L (13-40); Blood Urea Nitrogen 24 mg/dL (9-23); Chloride 93 mmol/L (98-107); Glucose 295 mg/dL (74-106); Sodium 132 mmol/L (136-145)
--- NOTE | 2025-01-20 09:37 | DVHPN2 ---
Progress Note Date Seen: Jan 20, 2025 Medical Necessity Reason Pt with a Central, PICC or Fol: Yes The following are medically ne: Central Line Subjective Review of Systems: Deferred Objective vital signs Vital Sign Date Time Temp Pulse Resp B/P (MAP) Pulse Ox O2 Delivery O2 Flow Rate FiO2 01/20/25 08:30 90 14 107/67 (80) 90 01/20/25 08:00 97.7 97.7 01/20/25 08:00 Hi-Flow Heated NC+ 50 50 Non-Rebreather 50 Oxymizer Total Intake and Output 01/19/25 01/19/25 01/20/25 15:00 23:00 07:00 Intake Total 179.066 ml 1000.314 ml 333.751 ml Output Total 0 ml Balance 179.066 ml 1000.314 ml 333.751 ml medications Current Medications Medications Dose Ordered Sig/Honey Route Start Time Stop Time Status Last Admin Dose Admin Diagnostic Test (Pha) 1 strip Q6HR 01/09/25 06:00 01/20/25 06:21 1 STRIP Insulin Human Regular Q6HR SC 01/09/25 06:00 01/20/25 06:23 2 UNITS Dextrose 50 ml UD PRN IV 01/09/25 00:30 01/18/25 10:40 50 ML Pantoprazole Sodium 40 mg DAILY IV 01/10/25 10:00 01/20/25 09:00 40 MG Ondansetron HCl 4 mg Q8HPRN PRN IV 01/09/25 10:30 01/19/25 17:24 4 MG Acetaminophen 650 mg Q6HP PRN PO 01/09/25 10:30 01/11/25 00:19 650 MG Ferrous Sulfate 325 mg BIDWM PO 01/10/25 18:00 01/20/25 09:01 325 MG Sevelamer HCl 800 mg TIDWM PO 01/10/25 18:00 01/20/25 09:02 800 MG Gabapentin 100 mg TID PO 01/11/25 14:00 01/20/25 06:20 100 MG Norepinephrine Bitartrate 32 mg/ Sodium Chloride 250 ml @ 0.938 mls/ hr Q24H IV 01/12/25 12:00 01/20/25 03:00 7.5 MLS/HR Midodrine 5 mg TID@0600,1200,1800 PO 01/12/25 18:00 01/20/25 06:20 5 MG Emollient Ointment 1 applic PRN PRN TOP 01/14/25 10:30 Linezolid 300 ml @ 150 mls/hr Q12HR@0400,1600 IV 01/14/25 16:00 01/20/25 04:28 150 MLS/HR Albumin Human 100 ml @ 100 mls/hr PRN PRN IV 01/15/25 10:30 01/17/25 18:15 100 MLS/HR Multivit/Ca Carb/ B Cmplx/FA/Prenat 1 tab DAILY PO 01/16/25 10:00 01/20/25 09:00 1 TAB Fluconazole 200 mg DAILY PO 01/17/25 10:15 01/20/25 09:02 200 MG Throat Lozenges 1 moriah Q2HP PRN MT 01/17/25 17:30 Amiodarone HCl 400 mg Q12HR PO 01/18/25 22:00 01/20/25 09:00 400 MG Lorazepam 1 mg Q2HP PRN IV 01/19/25 12:00 01/19/25 12:29 1 MG Morphine Sulfate 2 mg Q2HPRN PRN IV 01/19/25 12:00 Phenylephrine HCl 80 mg/Sodium Chloride 250 ml @ 7.5 mls/hr Q24H IV 01/19/25 12:00 Hydrocortisone Sodium Succinate 100 mg Q8HR IV 01/19/25 22:00 01/20/25 06:20 100 MG Examination: GENERAL:Abnormal, CVS:Abnormal, ABDOMEN:Abnormal, SKIN:Abnormal laboratory and microbiology Laboratory Tests 01/20/25 06:05 Test 01/20/25 06:05 Range/Units Serum Glucose 295 H 74-106 mg/dL Microbiology Date/Time Source Procedure Growth Status 01/17/25 17:30 Blood Blood Culture - Preliminary NO GROWTH AFTER 48 HOURS OF INCUBATION. Resulted 01/10/25 12:45 Ascities Fluid Gram Stain - Final Complete 01/10/25 12:45 Ascities Fluid Body Fluid Culture - Final Complete 01/09/25 14:00 Sputum Gram Stain - Final Complete 01/09/25 14:00 Respiratory Culture - Final Presumptive Lisa albicans Complete 01/09/25 05:00 Nose MRSA Screen - Final Complete Problem List/Assessment/Plan Problem List/Assessment/Plan Admitted for fluid overload in the setting of refractory ascites Shock cardiogenic versus septic End-stage renal disease on hemodialysis Heart failure with recent pericardial drainage due to recurrent pericardial effusions Refractory ascites due to cirrhosis with frequent paracentesis Diabetes hyperkalemia VRE bacteremia pending new BCX results NGTD HD tomorrow midodrine po levophed keep map > 65 Cardiology- posterior pericardial effusion RV failure s/p paracentesis 01/10/25 renal diet Plan discussed with: Patient Dietary Evaluation Review Comments: 1) Nepro carb steady 240ml BID (ordered per [facility] protocol) 2) Neprhro-Kaela 1 tab daily 3) Continue current plan of care Expected Outcomes/Goals: To meet >75% estimated needs Fu 3-5 days MARLEY LARSEN MD Jan 20, 2025 09:37
--- NOTE | 2025-01-20 10:38 | DVHPN2 ---
Progress Note - Dictate Date Seen: Jan 20, 2025 Medical Necessity Reason Pt with a Central, PICC or Fol: Yes The following are medically ne: Central Line vital signs Vital Sign Date Time Temp Pulse Resp B/P (MAP) Pulse Ox O2 Delivery O2 Flow Rate FiO2 01/20/25 09:43 91 01/20/25 09:43 18 90 Hi-Flow Heated NC+ 50 50 Non-Rebreather 50 Oxymizer 01/20/25 09:30 103/58 (73) 01/20/25 08:00 97.7 97.7 Total Intake and Output 01/19/25 01/19/25 01/20/25 15:00 23:00 07:00 Intake Total 179.066 ml 1000.314 ml 333.751 ml Output Total 0 ml Balance 179.066 ml 1000.314 ml 333.751 ml medications Current Medications Medications Dose Ordered Sig/Honey Route Start Time Stop Time Status Last Admin Dose Admin Diagnostic Test (Pha) 1 strip Q6HR 01/09/25 06:00 01/20/25 06:21 1 STRIP Insulin Human Regular Q6HR SC 01/09/25 06:00 01/20/25 06:23 2 UNITS Dextrose 50 ml UD PRN IV 01/09/25 00:30 01/18/25 10:40 50 ML Pantoprazole Sodium 40 mg DAILY IV 01/10/25 10:00 01/20/25 09:00 40 MG Ondansetron HCl 4 mg Q8HPRN PRN IV 01/09/25 10:30 01/19/25 17:24 4 MG Acetaminophen 650 mg Q6HP PRN PO 01/09/25 10:30 01/11/25 00:19 650 MG Ferrous Sulfate 325 mg BIDWM PO 01/10/25 18:00 01/20/25 09:01 325 MG Sevelamer HCl 800 mg TIDWM PO 01/10/25 18:00 01/20/25 09:02 800 MG Gabapentin 100 mg TID PO 01/11/25 14:00 01/20/25 06:20 100 MG Norepinephrine Bitartrate 32 mg/ Sodium Chloride 250 ml @ 0.938 mls/ hr Q24H IV 01/12/25 12:00 01/20/25 03:00 7.5 MLS/HR Midodrine 5 mg TID@0600,1200,1800 PO 01/12/25 18:00 01/20/25 06:20 5 MG Emollient Ointment 1 applic PRN PRN TOP 01/14/25 10:30 Linezolid 300 ml @ 150 mls/hr Q12HR@0400,1600 IV 01/14/25 16:00 01/20/25 04:28 150 MLS/HR Albumin Human 100 ml @ 100 mls/hr PRN PRN IV 01/15/25 10:30 01/17/25 18:15 100 MLS/HR Multivit/Ca Carb/ B Cmplx/FA/Prenat 1 tab DAILY PO 01/16/25 10:00 01/20/25 09:00 1 TAB Fluconazole 200 mg DAILY PO 01/17/25 10:15 01/20/25 09:02 200 MG Throat Lozenges 1 moriah Q2HP PRN MT 01/17/25 17:30 Amiodarone HCl 400 mg Q12HR PO 01/18/25 22:00 01/20/25 09:00 400 MG Lorazepam 1 mg Q2HP PRN IV 01/19/25 12:00 01/19/25 12:29 1 MG Morphine Sulfate 2 mg Q2HPRN PRN IV 01/19/25 12:00 Phenylephrine HCl 80 mg/Sodium Chloride 250 ml @ 7.5 mls/hr Q24H IV 01/19/25 12:00 Hydrocortisone Sodium Succinate 100 mg Q8HR IV 01/19/25 22:00 01/20/25 06:20 100 MG laboratory and microbiology Laboratory Tests 01/20/25 06:05 Test 01/20/25 06:05 Range/Units Serum Glucose 295 H 74-106 mg/dL Assessment/Plan Impression Acute hypoxemic respiratory failure Liver cirrhosis ESRD on HD Ascites Patient seen and examined Events Low oxygen requirements On 2 liters nasal cannula remains On pressors for hemodynamic support levophed stress dose steroids ?adrenal insufficiency events s/p paracent today 4l of fluid drained Labs and imaging reviewed Management Supplemental oxygen Titrate to maintain sats 90% or above Incentive spirometry Aspiration precautions Continue antibiotics Bronchodilators Monitor renal function HD as per nephrology Management deferred Monitor electrolytes Supplement as needed DVT prophylaxis Critical care time 35 minutes Dietary Evaluation Review Comments: 1) Nepro carb steady 240ml BID (ordered per [facility] protocol) 2) Neprhro-Kaela 1 tab daily 3) Continue current plan of care Expected Outcomes/Goals: To meet >75% estimated needs Fu 3-5 days Plan discussed with: Other (rn) MARIA FERNANDA CHAMBERS MD Jan 20, 2025 10:38
--- NOTE | 2025-01-20 10:42 | DVHNC2 ---
Procedure - US guided paracentesis consent time out RLQ approach chloraprep x3 sterile procedure lidocaine 1 % 10 cc 4 l of benito colored fluid drained with size 8F catheter at the end of procedure band aid applied no complications MARIA FERNANDA CHAMBERS MD Jan 20, 2025 10:42
--- NOTE | 2025-01-20 22:23 | DVHPN2 ---
Subjective Feeling much better after paracentesis of almost 4 liters Reviewed: Care Plan, H&P, Labs, Medications, Previous Orders, Radiology, Other (Consultations) Changes from previous H/P or p: Changes Objective Vitals Vital Signs Date Time Temp Pulse Resp B/P (MAP) Pulse Ox O2 Delivery O2 Flow Rate FiO2 01/20/25 21:30 80 12 96 30.0 40 01/20/25 20:00 Hi-Flow Heated NC+ Non-Rebreather Oxymizer 01/20/25 19:00 106/59 (75) 01/20/25 16:00 98.4 98.4 Intake/Output Intake and Output 01/20/25 07:00 Intake Total 1513.131 ml Output Total 0 ml Balance 1513.131 ml Intake Oral 750 ml IV Total 763.131 ml Output Urine Total 0 ml General Appearance: Alert, Oriented X3, Cooperative, moderate distress HEENT: Atraumatic, Other (Blind) Lungs: Other (Decreased air entry bilateral) Cardiovascular: Normal S1, Normal S2, Other (Tracking failure) Abdomen: Normal bowel sounds, Soft, No tenderness, Other (Resolved ascites after paracentesis of almost 4 liters) Extremities: Other (Left upper extremity AV fistula with good bruit and thrill; dusky extremities) Neuro: Normal speech, Cranial nerves 3-12 NL, Other (Reviewed) Psych/Mental Status: Mental status NL, Mood NL Medications Current Medications Medications Dose Ordered Sig/Honey Route Start Time Stop Time Status Last Admin Dose Admin Diagnostic Test (Pha) 1 strip Q6HR 01/09/25 06:00 01/20/25 17:28 1 STRIP Insulin Human Regular Q6HR SC 01/09/25 06:00 01/20/25 17:50 6 UNITS Dextrose 50 ml UD PRN IV 01/09/25 00:30 01/18/25 10:40 50 ML Pantoprazole Sodium 40 mg DAILY IV 01/10/25 10:00 01/20/25 09:00 40 MG Ondansetron HCl 4 mg Q8HPRN PRN IV 01/09/25 10:30 01/20/25 19:41 4 MG Acetaminophen 650 mg Q6HP PRN PO 01/09/25 10:30 01/11/25 00:19 650 MG Ferrous Sulfate 325 mg BIDWM PO 01/10/25 18:00 01/20/25 17:27 325 MG Sevelamer HCl 800 mg TIDWM PO 01/10/25 18:00 01/20/25 17:28 800 MG Gabapentin 100 mg TID PO 01/11/25 14:00 01/20/25 12:37 100 MG Norepinephrine Bitartrate 32 mg/ Sodium Chloride 250 ml @ 0.938 mls/ hr Q24H IV 01/12/25 12:00 01/20/25 03:00 7.5 MLS/HR Midodrine 5 mg TID@0600,1200,1800 PO 01/12/25 18:00 01/20/25 17:27 5 MG Emollient Ointment 1 applic PRN PRN TOP 01/14/25 10:30 Linezolid 300 ml @ 150 mls/hr Q12HR@0400,1600 IV 01/14/25 16:00 01/20/25 15:36 150 MLS/HR Albumin Human 100 ml @ 100 mls/hr PRN PRN IV 01/15/25 10:30 01/17/25 18:15 100 MLS/HR Multivit/Ca Carb/ B Cmplx/FA/Prenat 1 tab DAILY PO 01/16/25 10:00 01/20/25 09:00 1 TAB Fluconazole 200 mg DAILY PO 01/17/25 10:15 01/20/25 09:02 200 MG Throat Lozenges 1 moriah Q2HP PRN MT 01/17/25 17:30 Amiodarone HCl 400 mg Q12HR PO 01/18/25 22:00 01/20/25 09:00 400 MG Lorazepam 1 mg Q2HP PRN IV 01/19/25 12:00 01/19/25 12:29 1 MG Morphine Sulfate 2 mg Q2HPRN PRN IV 01/19/25 12:00 Phenylephrine HCl 80 mg/Sodium Chloride 250 ml @ 7.5 mls/hr Q24H IV 01/19/25 12:00 Hydrocortisone Sodium Succinate 100 mg Q8HR IV 01/19/25 22:00 01/20/25 12:36 100 MG Laboratory Results Laboratory Tests 01/20/25 06:05 Chemistry Test 01/20/25 06:05 Albumin 3.8 g/dL (3.2-4.8) Calcium Level 9.4 mg/dL (8.7-10.4) Total Protein 5.9 g/dL (5.7-8.2) Cardiac Markers Test 01/20/25 06:05 B-Type Natriuretic Peptide > 5000.00 pg/mL (0-100) LFT Test 01/20/25 06:05 Alanine Aminotransferase (ALT) < 9 U/L (7-40) Alkaline Phosphatase 204 U/L (46-116) H Aspartate Amino Transferase (AST) 9 U/L (13-40) L Total Bilirubin 1.2 mg/dL (0.2-1.0) H Blood Gas Results Test 01/20/25 07:10 Arterial Blood pH 7.386 (7.350-7.450) FiO2 % 80.0 Microbiology Microbiology Date/Time Source Procedure Growth Status 01/17/25 17:30 Blood Blood Culture - Preliminary NO GROWTH AFTER 72 HOURS OF INCUBATION. Resulted 01/10/25 12:45 Ascities Fluid Gram Stain - Final Complete 01/10/25 12:45 Ascities Fluid Body Fluid Culture - Final Complete 01/09/25 14:00 Sputum Gram Stain - Final Complete 01/09/25 14:00 Respiratory Culture - Final Presumptive Lisa albicans Complete 01/09/25 05:00 Nose MRSA Screen - Final Complete Labs and/or images reviewed: Labs reviewed by me, Image(s) reviewed by me Assessment/Plan Assessment/Plan Covering: Acute hepatic/metabolic/toxic encephalopathy Acute hypoxic respiratory failure due to presumptive Lisa albicans pneumonia, and acute on chronic Septic shock due to Enterococcus faecium - VRE bacteremia and presumptive Lisa albicans pneumonia Decompensated liver cirrhosis with refractory ascites status post recurrent paracentesis (last this morning of almost 4 liters), thrombocytopenia, and coagulopathy Chest pain; to rule out ACS Diabetes mellitus type 2 Blindness along with hearing loss Atrial tachycardia, now in junctional rhythm. NSTEMI, likely type II. Acute on chronic HFpEF with right-sided heart failure; with chronic pericardial effusion status post recurrent pericardiocentesis History of atrial fibrillation Normocytic anemia; most likely inflammatory End-stage renal disease on hemodialysis Reviewed lab work including ABGs Reviewed EKG; no ischemic changes Reviewed imaging studies including chest x-rays Reviewed available cultures Continue oxygen therapy via high-flow nasal cannula as indicated Continue IV pressors as indicated Continue IV antibiotics Continue hemodialysis as per Nephrology Nephrology, Cardiology, and pulmonology are following Telemetry Continue close monitoring Critical Care time of 55 minutes Late Entry. This medical document was created using an electronic medical record system with computerized dictation system. Although this document has been carefully reviewed, there might still be some phonetic and typographical errors. These areas are purely typographical due to imperfections of the software programs, and do not reflect any compromise in the patient's medical care. Plan discussed with: Patient, Other (Nurse) My Orders Orders - KAILEE COLON MD Procedure Category Date Status Time Complete Blood Count LAB 01/21/25 Verified 04:00 Comprehensive LAB 01/21/25 Verified Metabolic Panel 04:00 Magnesium LAB 01/21/25 Verified 04:00 Chest Portable XY 01/21/25 Logged 04:00 Date of Service: Jan 20, 2025 Billing Provider: KAILEE COLON MD Common Visit Codes: 06102-[id number] CARE 30-74 MIN (55 minutes) KAILEE COLON MD Jan 20, 2025 22:23
--- NOTE | 2025-01-20 23:50 | DVHPN2 ---
Progress Note - Dictate Date Seen: Jan 20, 2025 Medical Necessity Reason Pt with a Central, PICC or Fol: Yes The following are medically ne: Central Line Subjective Patient was seen and evaluated in follow up in the ICU. Patient is complaining of SOB. Patient is on high flow heated NC. 50 L. Patient underwent bedside paracentesis with 4L removed. 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 Chest x-ray showed interval progression in diffuse bilateral pulmonary airspace disease throughout all lung zones. Right pleural effusion. Cardiomegaly. vital signs Vital Sign Date Time Temp Pulse Resp B/P (MAP) Pulse Ox O2 Delivery O2 Flow Rate FiO2 01/20/25 15:39 83 01/20/25 15:39 11 89 Hi-Flow Heated NC+ 50 60 Non-Rebreather 60 Oxymizer 01/20/25 15:30 107/61 (76) 01/20/25 12:00 99.1 99.1 Total Intake and Output 01/19/25 01/19/25 01/20/25 15:00 23:00 07:00 Intake Total 179.066 ml 1000.314 ml 333.751 ml Output Total 0 ml Balance 179.066 ml 1000.314 ml 333.751 ml medications Current Medications Medications Dose Ordered Sig/Honey Route Start Time Stop Time Status Last Admin Dose Admin Diagnostic Test (Pha) 1 strip Q6HR 01/09/25 06:00 01/20/25 12:00 1 STRIP Insulin Human Regular Q6HR SC 01/09/25 06:00 01/20/25 12:00 6 UNITS Dextrose 50 ml UD PRN IV 01/09/25 00:30 01/18/25 10:40 50 ML Pantoprazole Sodium 40 mg DAILY IV 01/10/25 10:00 01/20/25 09:00 40 MG Ondansetron HCl 4 mg Q8HPRN PRN IV 01/09/25 10:30 01/19/25 17:24 4 MG Acetaminophen 650 mg Q6HP PRN PO 01/09/25 10:30 01/11/25 00:19 650 MG Ferrous Sulfate 325 mg BIDWM PO 01/10/25 18:00 01/20/25 09:01 325 MG Sevelamer HCl 800 mg TIDWM PO 01/10/25 18:00 01/20/25 12:37 800 MG Gabapentin 100 mg TID PO 01/11/25 14:00 01/20/25 12:37 100 MG Norepinephrine Bitartrate 32 mg/ Sodium Chloride 250 ml @ 0.938 mls/ hr Q24H IV 01/12/25 12:00 01/20/25 03:00 7.5 MLS/HR Midodrine 5 mg TID@0600,1200,1800 PO 01/12/25 18:00 01/20/25 12:37 5 MG Emollient Ointment 1 applic PRN PRN TOP 01/14/25 10:30 Linezolid 300 ml @ 150 mls/hr Q12HR@0400,1600 IV 01/14/25 16:00 01/20/25 15:36 150 MLS/HR Albumin Human 100 ml @ 100 mls/hr PRN PRN IV 01/15/25 10:30 01/17/25 18:15 100 MLS/HR Multivit/Ca Carb/ B Cmplx/FA/Prenat 1 tab DAILY PO 01/16/25 10:00 01/20/25 09:00 1 TAB Fluconazole 200 mg DAILY PO 01/17/25 10:15 01/20/25 09:02 200 MG Throat Lozenges 1 moriah Q2HP PRN MT 01/17/25 17:30 Amiodarone HCl 400 mg Q12HR PO 01/18/25 22:00 01/20/25 09:00 400 MG Lorazepam 1 mg Q2HP PRN IV 01/19/25 12:00 01/19/25 12:29 1 MG Morphine Sulfate 2 mg Q2HPRN PRN IV 01/19/25 12:00 Phenylephrine HCl 80 mg/Sodium Chloride 250 ml @ 7.5 mls/hr Q24H IV 01/19/25 12:00 Hydrocortisone Sodium Succinate 100 mg Q8HR IV 01/19/25 22:00 01/20/25 12:36 100 MG objective GENERAL: Alert and oriented x 3. No acute distress. EYES: PERRL, EOMI. Anicteric. HENT: Moist mucous membranes. LUNGS: Clear to auscultation bilaterally. CARDIOVASCULAR: Regular rate and rhythm. ABDOMEN: Ascites, large distended abdomen. EXTREMITIES: No edema. NEUROLOGIC: No focal neurological deficits. SKIN: Mottling to bilateral lower extremities. Bilateral feet cool to touch. laboratory and microbiology Laboratory Tests 01/20/25 06:05 Test 01/20/25 06:05 Range/Units Serum Glucose 295 H 74-106 mg/dL Problem List Atrial tachycardia, now in junctional rhythm. NSTEMI, likely type II. Chronic HFpEF with right-sided heart failure, NYHA class III. Hx of atrial fibrillation (on amiodarone and Eliquis). Chronic pericardial effusion. History of hypertension. Hyperlipidemia. Liver cirrhosis with frequent paracentesis. Ascites. Type 2 diabetes mellitus. End-stage renal disease on hemodialysis. Assessment/Plan Continued all current supportive medical care. Amiodarone. GI prophylactics. IV antibiotics as ordered. Morphine for pain management. Vasopressors for hemodynamic support. Additional plan as per the hospital course. Critical care time of 45 minutes provided to include time spent evaluation of patient at bedside, when appropriate patient/family education for diagnosis, treatment plan, review of pertinent medical information and discussion of care with specialty providers and PCP. Dietary Evaluation Review Comments: 1) Nepro carb steady 240ml BID (ordered per [facility] protocol) 2) Neprhro-Kaela 1 tab daily 3) Continue current plan of care Expected Outcomes/Goals: To meet >75% estimated needs Fu 3-5 days Plan discussed with: Other SOREN MARTINEZ MD Jan 20, 2025 16:20
[2025-01-21] VITALS (101 sets, daily range): BP systolic 84–126; BP diastolic 47–88; PULSE 70–113; RESP 7–24; TEMP 97.1–99; O2SAT 59–100
[2025-01-21] MEDS: MORPHINE SULFATE INJ 2 MG/ml SYRG IV PRN (00:48)
[2025-01-21 03:26] LABS: Base Excess -2.8 mmol/L (-2.0-3.0)
--- NOTE | 2025-01-21 05:06 | DVH ---
EXAM: XR Chest, 1 View CLINICAL INDICATION: respiratory distress TECHNIQUE: Frontal view of the chest. COMPARISON: XY CHEST PORTABLE on DOS: 01/20/25, XY CHEST PORTABLE on DOS: 01/16/25, XY CHEST PORTABLE on DOS: 01/11/25, XY CHEST PORTABLE on DOS: 01/08/25, XY CHEST XRAY 1 VIEW on DOS: 12/03/24 FINDINGS: LUNGS AND PLEURAL SPACES: Right pleural effusion. HEART: Cardiomegaly with mild congestion. MEDIASTINUM: Unremarkable. Normal mediastinal contour. BONES/JOINTS: Unremarkable. No acute fracture. OTHER FINDINGS: . . . . IMPRESSION: 1. Cardiomegaly with mild congestion. 2. Right pleural effusion.
[2025-01-21 05:45] LABS: Basophils # (auto) 0 10 ^3/uL (0-0.2); Basophils % (auto) 0.1 % (0.0-2.0); Eosinophils # (auto) 0 10 ^3/uL (0-0.8); Hematocrit 32.5 % (36.0-46.0); Hemoglobin 10.7 g/dL (12.2-16.2); Lymphocytes # (auto) 0.3 10 ^3/uL (0.4-5.4); Lymphocytes % (auto) 2.5 % (10.0-50.0); Mean Corpuscular Hgb Conc. 32.9 g/dL (32.0-36.0); Mean Corpuscular Volume 97.4 fL (80.0-100.0); Monocytes # (auto) 0.2 10 ^3/uL (0-1.3); Monocytes % (auto) 1.3 % (0.0-12.0); Neutrophils # (auto) 11.6 10 ^3/uL (1.6-8.6); Neutrophils % (auto) 96.1 % (37.0-80.0); Nucleated Red Blood Cells % 0.1 %; Platelet Count (auto) 114 10^3/uL (140-450); Red Blood Cells 3.34 10^6/uL (4.0-5.20)
[2025-01-21 06:07] LABS: Albumin 3.6 g/dL (3.2-4.8); Anion Gap 13 (5-15); Aspartate Aminotransferase 13 U/L (13-40); BUN/Creatinine Ratio 7.9 (10.0-20.0); Calcium 9.4 mg/dL (8.7-10.4); Carbon Dioxide 24 mmol/L (20-31); Magnesium 2.1 mg/dL (1.6-2.6)
[2025-01-21 06:08] LABS: Alanine Aminotransferase < 9 U/L (7-40); Alkaline Phosphatase 177 U/L (46-116); Bilirubin, Total 0.8 mg/dL (0.2-1.0); Blood Urea Nitrogen 33 mg/dL (9-23); Chloride 92 mmol/L (98-107); Glucose 192 mg/dL (74-106); Sodium 129 mmol/L (136-145); Total Protein 5.7 g/dL (5.7-8.2)
[2025-01-21 06:10] LABS: Potassium 5.6 mmol/L (3.5-5.1)
[2025-01-21] MEDS: SODIUM CHL 0.9% 1000 ML BAG XX ONE (07:00)
[2025-01-21] MEDS: POLYETHYLENE GLYCOL 17 GM PWDR PO PRN (12:31)
[2025-01-21] MEDS: SENNA 8.6 MG TAB PO ONE (12:31)
--- NOTE | 2025-01-21 12:42 | DVHPN2 ---
Progress Note - Dictate Date Seen: Jan 21, 2025 Medical Necessity Reason Pt with a Central, PICC or Fol: Yes The following are medically ne: Central Line vital signs Vital Sign Date Time Temp Pulse Resp B/P (MAP) Pulse Ox O2 Delivery O2 Flow Rate FiO2 01/21/25 11:55 82 16 93 30.0 40 01/21/25 10:00 Hi-Flow Heated NC+ 01/21/25 08:00 98.4 107/62 (77) 98.4 Total Intake and Output 01/20/25 01/20/25 01/21/25 15:00 23:00 07:00 Intake Total 37.504 ml 822.504 ml 172.504 ml Output Total 0 ml 0 ml Balance 37.504 ml 822.504 ml 172.504 ml medications Current Medications Medications Dose Ordered Sig/Honey Route Start Time Stop Time Status Last Admin Dose Admin Diagnostic Test (Pha) 1 strip Q6HR 01/09/25 06:00 01/20/25 23:46 1 STRIP Insulin Human Regular Q6HR SC 01/09/25 06:00 01/21/25 06:00 3 UNITS Dextrose 50 ml UD PRN IV 01/09/25 00:30 01/18/25 10:40 50 ML Pantoprazole Sodium 40 mg DAILY IV 01/10/25 10:00 01/21/25 11:03 40 MG Ondansetron HCl 4 mg Q8HPRN PRN IV 01/09/25 10:30 01/20/25 19:41 4 MG Acetaminophen 650 mg Q6HP PRN PO 01/09/25 10:30 01/11/25 00:19 650 MG Ferrous Sulfate 325 mg BIDWM PO 01/10/25 18:00 01/21/25 11:03 325 MG Sevelamer HCl 800 mg TIDWM PO 01/10/25 18:00 01/21/25 11:03 800 MG Gabapentin 100 mg TID PO 01/11/25 14:00 01/21/25 06:23 100 MG Midodrine 5 mg TID@0600,1200,1800 PO 01/12/25 18:00 01/21/25 06:23 5 MG Emollient Ointment 1 applic PRN PRN TOP 01/14/25 10:30 Linezolid 300 ml @ 150 mls/hr Q12HR@0400,1600 IV 01/14/25 16:00 01/21/25 06:12 150 MLS/HR Albumin Human 100 ml @ 100 mls/hr PRN PRN IV 01/15/25 10:30 01/17/25 18:15 100 MLS/HR Multivit/Ca Carb/ B Cmplx/FA/Prenat 1 tab DAILY PO 01/16/25 10:00 01/21/25 11:03 1 TAB Fluconazole 200 mg DAILY PO 01/17/25 10:15 01/21/25 11:04 200 MG Throat Lozenges 1 moriah Q2HP PRN MT 01/17/25 17:30 Amiodarone HCl 400 mg Q12HR PO 01/18/25 22:00 01/21/25 11:03 400 MG Lorazepam 1 mg Q2HP PRN IV 01/19/25 12:00 01/19/25 12:29 1 MG Morphine Sulfate 2 mg Q2HPRN PRN IV 01/19/25 12:00 01/21/25 06:23 2 MG Phenylephrine HCl 80 mg/Sodium Chloride 250 ml @ 7.5 mls/hr Q24H IV 01/19/25 12:00 Hydrocortisone Sodium Succinate 100 mg Q8HR IV 01/19/25 22:00 01/21/25 06:24 100 MG Polyethylene Glycol 17 gm DAILYPRN PRN PO 01/21/25 12:15 Sennosides 8.6 mg QHSP PRN PO 01/21/25 12:15 Norepinephrine Bitartrate 32 mg/ Sodium Chloride 250 ml @ 0.938 mls/ hr Q24H IV 01/21/25 12:15 UNV laboratory and microbiology Laboratory Tests 01/21/25 05:20 Test 01/21/25 05:20 Range/Units Serum Glucose 192 H 74-106 mg/dL Assessment/Plan Impression Acute hypoxemic respiratory failure Liver cirrhosis ESRD on HD Ascites Patient seen and examined Events Low oxygen requirements On 2 liters nasal cannula remains On pressors for hemodynamic support levophed stress dose steroids ?adrenal insufficiency events s/p paracent Labs and imaging reviewed Management Supplemental oxygen Titrate to maintain sats 90% or above Incentive spirometry Aspiration precautions Continue antibiotics Bronchodilators Monitor renal function HD as per nephrology Management deferred Monitor electrolytes Supplement as needed DVT prophylaxis Critical care time 35 minutes Dietary Evaluation Review Comments: 1) Nepro carb steady 240ml BID (ordered per ONS protocol) 2) Neprhro-Kaela 1 tab daily 3) Continue current plan of care Expected Outcomes/Goals: To meet >75% estimated needs Fu 3-5 days Plan discussed with: Other (rn) MARIA FERNANDA CHAMBERS MD Jan 21, 2025 12:42
[2025-01-21] MEDS: NOREPINEPHRINE BITARTRATE 32 MG in SODIUM CHL 0.9% 218 ML IV SCH (15:13)
--- NOTE | 2025-01-21 15:23 | DVHPN2 ---
Progress Note Date Seen: Jan 21, 2025 Medical Necessity Reason Pt with a Central, PICC or Fol: Yes The following are medically ne: Central Line Subjective Patient reports: Other Review of Systems: Deferred Objective vital signs Vital Sign Date Time Temp Pulse Resp B/P (MAP) Pulse Ox O2 Delivery O2 Flow Rate FiO2 01/21/25 14:45 83 16 92 30.0 40 01/21/25 12:00 Hi-Flow Heated NC+ 01/21/25 12:00 97.1 96/63 (74) 97.1 Total Intake and Output 01/20/25 01/20/25 01/21/25 15:00 23:00 07:00 Intake Total 37.504 ml 822.504 ml 172.504 ml Output Total 0 ml 0 ml Balance 37.504 ml 822.504 ml 172.504 ml medications Current Medications Medications Dose Ordered Sig/Honey Route Start Time Stop Time Status Last Admin Dose Admin Diagnostic Test (Pha) 1 strip Q6HR 01/09/25 06:00 01/21/25 12:00 1 STRIP Insulin Human Regular Q6HR SC 01/09/25 06:00 01/21/25 12:49 2 UNITS Dextrose 50 ml UD PRN IV 01/09/25 00:30 01/18/25 10:40 50 ML Pantoprazole Sodium 40 mg DAILY IV 01/10/25 10:00 01/21/25 11:03 40 MG Ondansetron HCl 4 mg Q8HPRN PRN IV 01/09/25 10:30 01/20/25 19:41 4 MG Acetaminophen 650 mg Q6HP PRN PO 01/09/25 10:30 01/11/25 00:19 650 MG Ferrous Sulfate 325 mg BIDWM PO 01/10/25 18:00 01/21/25 11:03 325 MG Sevelamer HCl 800 mg TIDWM PO 01/10/25 18:00 01/21/25 12:32 800 MG Gabapentin 100 mg TID PO 01/11/25 14:00 01/21/25 15:12 100 MG Midodrine 5 mg TID@0600,1200,1800 PO 01/12/25 18:00 01/21/25 12:32 5 MG Emollient Ointment 1 applic PRN PRN TOP 01/14/25 10:30 Linezolid 300 ml @ 150 mls/hr Q12HR@0400,1600 IV 01/14/25 16:00 01/21/25 06:12 150 MLS/HR Albumin Human 100 ml @ 100 mls/hr PRN PRN IV 01/15/25 10:30 01/17/25 18:15 100 MLS/HR Multivit/Ca Carb/ B Cmplx/FA/Prenat 1 tab DAILY PO 01/16/25 10:00 01/21/25 11:03 1 TAB Fluconazole 200 mg DAILY PO 01/17/25 10:15 01/21/25 11:04 200 MG Throat Lozenges 1 moriah Q2HP PRN MT 01/17/25 17:30 Amiodarone HCl 400 mg Q12HR PO 01/18/25 22:00 01/21/25 11:03 400 MG Lorazepam 1 mg Q2HP PRN IV 01/19/25 12:00 01/19/25 12:29 1 MG Morphine Sulfate 2 mg Q2HPRN PRN IV 01/19/25 12:00 01/21/25 06:23 2 MG Phenylephrine HCl 80 mg/Sodium Chloride 250 ml @ 7.5 mls/hr Q24H IV 01/19/25 12:00 Hydrocortisone Sodium Succinate 100 mg Q8HR IV 01/19/25 22:00 01/21/25 15:12 100 MG Polyethylene Glycol 17 gm DAILYPRN PRN PO 01/21/25 12:15 01/21/25 12:31 17 GM Sennosides 8.6 mg QHSP PRN PO 01/21/25 12:15 Norepinephrine Bitartrate 32 mg/ Sodium Chloride 250 ml @ 0.938 mls/ hr Q24H IV 01/21/25 12:15 01/21/25 15:13 2.813 MLS/HR Examination: GENERAL:Abnormal, LUNGS:Abnormal, MSK:Abnormal, NEURO:Abnormal laboratory and microbiology Laboratory Tests 01/21/25 05:20 Test 01/21/25 05:20 Range/Units Serum Glucose 192 H 74-106 mg/dL Microbiology Date/Time Source Procedure Growth Status 01/17/25 17:30 Blood Blood Culture - Preliminary NO GROWTH AFTER 72 HOURS OF INCUBATION. Resulted 01/10/25 12:45 Ascities Fluid Gram Stain - Final Complete 01/10/25 12:45 Ascities Fluid Body Fluid Culture - Final Complete 01/09/25 14:00 Sputum Gram Stain - Final Complete 01/09/25 14:00 Respiratory Culture - Final Presumptive Lisa albicans Complete 01/09/25 05:00 Nose MRSA Screen - Final Complete Problem List/Assessment/Plan Problem List/Assessment/Plan End-stage renal disease on hemodialysis Heart failure with recent pericardial drainage due to recurrent pericardial effusions Refractory ascites due to cirrhosis with frequent paracentesis Diabetes Shock cardiogenic versus septic hyperkalemia VRE bacteremia recs HD today uf 2L off Plan discussed with: Patient Dietary Evaluation Review Comments: 1) Nepro carb steady 240ml BID (ordered per [facility]NS protocol) 2) Neprhro-Kaela 1 tab daily 3) Continue current plan of care Expected Outcomes/Goals: To meet >75% estimated needs Fu 3-5 days LARISA MCKEON MD Jan 21, 2025 15:23
[2025-01-21] MEDS: THROAT LOZENGES(CEPASTAT) MT PRN (17:49)
--- NOTE | 2025-01-21 20:55 | DVHPN2 ---
Assessment/Plan Assessment/Plan ICU notes covering seen today during rounds, in HFNC 30/40, dusky fingertips RUE>LUE, LE equal, pulse RLE > LLE. possible pressor related. Fem TLC on but pt likely vasculopath, will attempt new LTC tomorrow. new echo ordered, concerned for pulm HTN (prior echo 12/18 with torrential TR, echo 01/18 no color done, loud late peaking murmur in physical. physical exam on [facility] AOx3 MMM coarse breath sounds s1 s2 RRR systolic murmur abdomen distended LE edema labs ekg imaging reviewed assessment and plan Acute hepatic/metabolic/toxic encephalopathy Acute hypoxic respiratory failure due to presumptive Lisa albicans pneumonia, and acute on chronic Septic shock due to Enterococcus faecium - VRE bacteremia and presumptive Lisa albicans pneumonia Decompensated liver cirrhosis with refractory ascites status post recurrent pa racentesis (last this morning of almost 4 liters), thrombocytopenia, and coagulopathy ACS ruled out Diabetes mellitus type 2 Blindness Hearing loss Atrial tachycardia, now in junctional rhythm. Type 2 LA, demand ischemia Acute on chronic HFpEF with right-sided heart failure; with chronic pericardial effusion status post recurrent pericardiocentesis History of atrial fibrillation Normocytic anemia; most likely inflammatory End-stage renal disease on hemodialysis pulmonary edema vs ARDS r/o , MR r/o pHTN c/w HFNC, maintain spo2 >89% repeat echo might benefit from swans vs GOC discussion c/w rest of management diet cardiac dvt ppx on AC gi ppx protonix full code condition critical prognosis grim 90 minutes critical care time Plan discussed with: Patient, Other My Orders Orders - BINTA VELAZQUEZ MD Procedure Category Date Status Time Polyethylene Glycol PHA 01/21/25 In Process 17g Powder (Miralax 12:15 Senna Pod Tablet PHA 01/21/25 In Process (Senokot Tablet) 12:15 Echo 2d Mode Cardiac US 01/21/25 Logged DOP 12:19 Sodium Chl 0.9% PHA 01/21/25 In Process (Ns... 12:15 Date of Service: Jan 21, 2025 Billing Provider: BINTA VELAZQUEZ MD Common Visit Codes: [id number] CARE 30-74 MIN, [id number] CARE-EACH +30MIN BINTA VELAZQUEZ MD Jan 21, 2025 20:55
--- NOTE | 2025-01-21 22:45 | DVHPN2 ---
Progress Note - Dictate Date Seen: Jan 21, 2025 Medical Necessity Reason Pt with a Central, PICC or Fol: Yes The following are medically ne: Central Line Subjective Patient was seen and evaluated in follow up in the ICU. Patient is now on 8 L Oxymizer. Patient remains with SOB. Patient has dusky fingertips RUE>LUE. WBC 12, NA 129, K 5.6, BUN 33, Business Continuity Planning Director 4.20. Chest x-ray shows cardiomegaly with mild congestion and right pleural effusion. vital signs Vital Sign Date Time Temp Pulse Resp B/P (MAP) Pulse Ox O2 Delivery O2 Flow Rate FiO2 01/21/25 22:39 93 Oxymizer 8 N/A 01/21/25 20:15 85 18 101/56 (71) 01/21/25 20:00 98.6 98.6 Total Intake and Output 01/20/25 01/20/25 01/21/25 15:00 23:00 07:00 Intake Total 37.504 ml 822.504 ml 172.504 ml Output Total 0 ml 0 ml Balance 37.504 ml 822.504 ml 172.504 ml medications Current Medications Medications Dose Ordered Sig/Honey Route Start Time Stop Time Status Last Admin Dose Admin Diagnostic Test (Pha) 1 strip Q6HR 01/09/25 06:00 01/21/25 17:49 1 STRIP Insulin Human Regular Q6HR SC 01/09/25 06:00 01/21/25 17:50 2 UNITS Dextrose 50 ml UD PRN IV 01/09/25 00:30 01/18/25 10:40 50 ML Pantoprazole Sodium 40 mg DAILY IV 01/10/25 10:00 01/21/25 11:03 40 MG Ondansetron HCl 4 mg Q8HPRN PRN IV 01/09/25 10:30 01/20/25 19:41 4 MG Acetaminophen 650 mg Q6HP PRN PO 01/09/25 10:30 01/11/25 00:19 650 MG Ferrous Sulfate 325 mg BIDWM PO 01/10/25 18:00 01/21/25 17:48 325 MG Sevelamer HCl 800 mg TIDWM PO 01/10/25 18:00 01/21/25 17:48 800 MG Gabapentin 100 mg TID PO 01/11/25 14:00 01/21/25 22:07 100 MG Midodrine 5 mg TID@0600,1200,1800 PO 01/12/25 18:00 01/21/25 17:48 5 MG Emollient Ointment 1 applic PRN PRN TOP 01/14/25 10:30 Linezolid 300 ml @ 150 mls/hr Q12HR@0400,1600 IV 01/14/25 16:00 01/21/25 16:37 150 MLS/HR Albumin Human 100 ml @ 100 mls/hr PRN PRN IV 01/15/25 10:30 01/17/25 18:15 100 MLS/HR Multivit/Ca Carb/ B Cmplx/FA/Prenat 1 tab DAILY PO 01/16/25 10:00 01/21/25 11:03 1 TAB Fluconazole 200 mg DAILY PO 01/17/25 10:15 01/21/25 11:04 200 MG Throat Lozenges 1 carl Q2HP PRN MT 01/17/25 17:30 01/21/25 17:49 1 CARL Amiodarone HCl 400 mg Q12HR PO 01/18/25 22:00 01/21/25 22:07 400 MG Lorazepam 1 mg Q2HP PRN IV 01/19/25 12:00 01/19/25 12:29 1 MG Morphine Sulfate 2 mg Q2HPRN PRN IV 01/19/25 12:00 01/21/25 16:38 2 MG Phenylephrine HCl 80 mg/Sodium Chloride 250 ml @ 7.5 mls/hr Q24H IV 01/19/25 12:00 Hydrocortisone Sodium Succinate 100 mg Q8HR IV 01/19/25 22:00 01/21/25 22:07 100 MG Polyethylene Glycol 17 gm DAILYPRN PRN PO 01/21/25 12:15 01/21/25 12:31 17 GM Sennosides 8.6 mg QHSP PRN PO 01/21/25 12:15 Norepinephrine Bitartrate 32 mg/ Sodium Chloride 250 ml @ 0.938 mls/ hr Q24H IV 01/21/25 12:15 01/21/25 15:13 2.813 MLS/HR objective GENERAL: Alert and oriented x 3. No acute distress. EYES: PERRL, EOMI. Anicteric. HENT: Moist mucous membranes. LUNGS: Clear to auscultation bilaterally. CARDIOVASCULAR: Regular rate and rhythm. ABDOMEN: Ascites, large distended abdomen. EXTREMITIES: No edema. NEUROLOGIC: No focal neurological deficits. SKIN: Mottling to bilateral lower extremities. Bilateral feet cool to touch. laboratory and microbiology Laboratory Tests 01/21/25 05:20 Test 01/21/25 05:20 Range/Units Serum Glucose 192 H 74-106 mg/dL Problem List Atrial tachycardia, now in junctional rhythm. NSTEMI, likely type II. Chronic HFpEF with right-sided heart failure, NYHA class III. Hx of atrial fibrillation (on amiodarone and Eliquis). Chronic pericardial effusion. History of hypertension. Hyperlipidemia. Liver cirrhosis with frequent paracentesis. Ascites. Type 2 diabetes mellitus. End-stage renal disease on hemodialysis. Assessment/Plan Continued all current supportive medical care. Amiodarone. GI prophylactics. IV antibiotics as ordered. Morphine for pain management. Vasopressors for hemodynamic support. Additional plan as per the hospital course. Critical care time of 45 minutes provided to include time spent evaluation of patient at bedside, when appropriate patient/family education for diagnosis, treatment plan, review of pertinent medical information and discussion of care with specialty providers and PCP. Dietary Evaluation Review Comments: 1) Nepro carb steady 240ml BID (ordered per ONS protocol) 2) Neprhro-Kaela 1 tab daily 3) Continue current plan of care Expected Outcomes/Goals: To meet >75% estimated needs Fu 3-5 days Plan discussed with: Patient SOREN MARTINEZ MD Jan 21, 2025 22:45
[2025-01-22] VITALS (98 sets, daily range): BP systolic 83–119; BP diastolic 45–71; PULSE 73–90; RESP 8–25; TEMP 97.4–98.7; O2SAT 90–100
[2025-01-22 05:15] LABS: Basophils # (auto) 0 10 ^3/uL (0-0.2); Basophils % (auto) 0.1 % (0.0-2.0); Eosinophils # (auto) 0 10 ^3/uL (0-0.8); Hematocrit 31.5 % (36.0-46.0); Hemoglobin 10.3 g/dL (12.2-16.2); Lymphocytes # (auto) 0.2 10 ^3/uL (0.4-5.4); Lymphocytes % (auto) 3.1 % (10.0-50.0); Mean Corpuscular Hemoglobin 31.9 pg (28.0-32.0); Mean Corpuscular Hgb Conc. 32.7 g/dL (32.0-36.0); Mean Corpuscular Volume 97.5 fL (80.0-100.0); Monocytes # (auto) 0.1 10 ^3/uL (0-1.3); Monocytes % (auto) 1.9 % (0.0-12.0); Neutrophils # (auto) 7.4 10 ^3/uL (1.6-8.6); Neutrophils % (auto) 94.9 % (37.0-80.0); Nucleated Red Blood Cells % 0.3 %; Platelet Count (auto) 101 10^3/uL (140-450); Red Blood Cells 3.23 10^6/uL (4.0-5.20); Red Cell Distribution Width 16.5 % (11.8-14.3); White Blood Cell 7.8 10^3/uL (4.4-10.8)
[2025-01-22 05:55] LABS: Anion Gap 10 (5-15); BUN/Creatinine Ratio 7.8 (10.0-20.0); Calcium 9.3 mg/dL (8.7-10.4); Carbon Dioxide 27 mmol/L (20-31); Magnesium 2.1 mg/dL (1.6-2.6); Potassium 4.7 mmol/L (3.5-5.1)
[2025-01-22 05:56] LABS: Albumin 3.5 g/dL (3.2-4.8); Aspartate Aminotransferase 17 U/L (13-40); Phosphorus 4.1 mg/dL (2.4-5.1)
[2025-01-22 06:03] LABS: Alanine Aminotransferase < 9 U/L (7-40); Alkaline Phosphatase 181 U/L (46-116); Blood Urea Nitrogen 24 mg/dL (9-23); Chloride 93 mmol/L (98-107); Glucose 156 mg/dL (74-106); Sodium 130 mmol/L (136-145); Total Protein 5.5 g/dL (5.7-8.2)
--- NOTE | 2025-01-22 13:02 | DVHPN2 ---
Progress Note - Dictate Date Seen: Jan 22, 2025 Medical Necessity Reason Pt with a Central, PICC or Fol: Yes The following are medically ne: Central Line vital signs Vital Sign Date Time Temp Pulse Resp B/P (MAP) Pulse Ox O2 Delivery O2 Flow Rate FiO2 01/22/25 08:00 82 12 Oxymizer 8 N/A 01/22/25 06:45 108/61 (77) 93 01/22/25 04:00 97.6 97.6 Total Intake and Output 01/21/25 01/21/25 01/22/25 15:00 23:00 07:00 Intake Total 22.269 ml 319.454 ml 612.657 ml Output Total 2000 ml 0 ml Balance 22.269 ml -1680.546 ml 612.657 ml medications Current Medications Medications Dose Ordered Sig/Honey Route Start Time Stop Time Status Last Admin Dose Admin Diagnostic Test (Pha) 1 strip Q6HR 01/09/25 06:00 01/22/25 05:31 1 STRIP Insulin Human Regular Q6HR SC 01/09/25 06:00 01/22/25 05:32 2 UNITS Dextrose 50 ml UD PRN IV 01/09/25 00:30 01/18/25 10:40 50 ML Pantoprazole Sodium 40 mg DAILY IV 01/10/25 10:00 01/22/25 11:21 40 MG Ondansetron HCl 4 mg Q8HPRN PRN IV 01/09/25 10:30 01/20/25 19:41 4 MG Acetaminophen 650 mg Q6HP PRN PO 01/09/25 10:30 01/22/25 11:22 650 MG Ferrous Sulfate 325 mg BIDWM PO 01/10/25 18:00 01/22/25 11:20 325 MG Sevelamer HCl 800 mg TIDWM PO 01/10/25 18:00 01/22/25 08:44 800 MG Gabapentin 100 mg TID PO 01/11/25 14:00 01/22/25 05:45 100 MG Midodrine 5 mg TID@0600,1200,1800 PO 01/12/25 18:00 01/22/25 05:41 5 MG Emollient Ointment 1 applic PRN PRN TOP 01/14/25 10:30 Linezolid 300 ml @ 150 mls/hr Q12HR@0400,1600 IV 01/14/25 16:00 01/22/25 05:19 150 MLS/HR Albumin Human 100 ml @ 100 mls/hr PRN PRN IV 01/15/25 10:30 01/17/25 18:15 100 MLS/HR Multivit/Ca Carb/ B Cmplx/FA/Prenat 1 tab DAILY PO 01/16/25 10:00 01/22/25 11:21 1 TAB Fluconazole 200 mg DAILY PO 01/17/25 10:15 01/22/25 11:21 200 MG Throat Lozenges 1 carl Q2HP PRN MT 01/17/25 17:30 01/21/25 17:49 1 CARL Amiodarone HCl 400 mg Q12HR PO 01/18/25 22:00 01/22/25 11:21 400 MG Lorazepam 1 mg Q2HP PRN IV 01/19/25 12:00 01/19/25 12:29 1 MG Morphine Sulfate 2 mg Q2HPRN PRN IV 01/19/25 12:00 01/21/25 16:38 2 MG Phenylephrine HCl 80 mg/Sodium Chloride 250 ml @ 7.5 mls/hr Q24H IV 01/19/25 12:00 Hydrocortisone Sodium Succinate 100 mg Q8HR IV 01/19/25 22:00 01/22/25 05:38 100 MG Polyethylene Glycol 17 gm DAILYPRN PRN PO 01/21/25 12:15 01/22/25 11:22 17 GM Sennosides 8.6 mg QHSP PRN PO 01/21/25 12:15 Norepinephrine Bitartrate 32 mg/ Sodium Chloride 250 ml @ 0.938 mls/ hr Q24H IV 01/21/25 12:15 01/21/25 15:13 2.813 MLS/HR laboratory and microbiology Laboratory Tests 01/22/25 04:48 Test 01/22/25 04:48 Range/Units Serum Glucose 156 H 74-106 mg/dL Assessment/Plan Impression Acute hypoxemic respiratory failure Liver cirrhosis ESRD on HD Ascites Patient seen and examined Events Low oxygen requirements On 2 liters nasal cannula remains On pressors for hemodynamic support levophed stress dose steroids ?adrenal insufficiency events s/p paracent Labs and imaging reviewed Management Supplemental oxygen Titrate to maintain sats 90% or above Incentive spirometry Aspiration precautions Continue antibiotics Bronchodilators Monitor renal function HD as per nephrology Management deferred Monitor electrolytes Supplement as needed DVT prophylaxis Critical care time 35 minutes Dietary Evaluation Review Comments: 1) Nepro carb steady 240ml BID (ordered per ONS protocol) 2) Neprhro-Kaela 1 tab daily 3) Continue current plan of care Expected Outcomes/Goals: To meet >75% estimated needs Fu 3-5 days Plan discussed with: Other (rn) MARIA FERNANDA CHAMBERS MD Jan 22, 2025 13:02
--- NOTE | 2025-01-22 15:36 | DVHPN2 ---
Assessment/Plan Assessment/Plan ICU notes covering in HFNC 30/40, dusky fingertips RUE>LUE, LE equal, pulse RLE > LLE. possible pressor related. Fem TLC on but pt likely vasculopath, will attempt new LTC tomorrow. new echo ordered, concerned for pulm HTN (prior echo 12/18 with torrential TR, echo 01/18 no color done, loud late peaking murmur in physical. seen today during rounds, on oxymyzer, fluid responsive on leg raise. giving back 250 cc. titrate pressors. Pending repeat echo. no BM, enema physical exam on [facility] AOx3 MMM coarse breath sounds s1 s2 RRR systolic murmur abdomen distended LE edema labs ekg imaging reviewed assessment and plan Acute hepatic/metabolic/toxic encephalopathy Acute hypoxic respiratory failure due to presumptive Lisa albicans pneumonia, and acute on chronic Septic shock due to Enterococcus faecium - VRE bacteremia and presumptive Lisa albicans pneumonia Decompensated liver cirrhosis with refractory ascites status post recurrent paracentesis (last this morning of almost 4 liters), thrombocytopenia, and coagulopathy ACS ruled out Diabetes mellitus type 2 Blindness Hearing loss Atrial tachycardia, now in junctional rhythm. Type 2 [place], demand ischemia Acute on chronic HFpEF with right-sided heart failure; with chronic pericardial effusion status post recurrent pericardiocentesis History of atrial fibrillation Normocytic anemia; most likely inflammatory End-stage renal disease on hemodialysis pulmonary edema vs ARDS r/o , MR r/o pHTN c/w HFNC, maintain spo2 >89% repeat echo might benefit from swans vs GOC discussion c/w rest of management diet cardiac dvt ppx on AC gi ppx protonix full code condition critical prognosis grim 55 minutes critical care time Plan discussed with: Patient My Orders Orders - BINTA VELAZQUEZ MD Procedure Category Date Status Time Communication Order ORDERS 01/21/25 Transmitted 20:57 Renal DIET 01/22/25 Transmitted Standard(2gna,3gk,Lopho) Breakfast Date of Service: Jan 22, 2025 Billing Provider: BINTA VELAZQUEZ MD Common Visit Codes: [id number] CARE 30-74 MIN BINTA VELAZQUEZ MD Jan 22, 2025 15:36
--- NOTE | 2025-01-22 18:35 | DVHPN2 ---
Progress Note Date Seen: Jan 22, 2025 Medical Necessity Reason Pt with a Central, PICC or Fol: Yes The following are medically ne: Central Line Subjective Patient reports: Other (sleeping ) Review of Systems: Deferred Objective vital signs Vital Sign Date Time Temp Pulse Resp B/P (MAP) Pulse Ox O2 Delivery O2 Flow Rate FiO2 01/22/25 18:15 76 11 94/57 (69) 100 01/22/25 18:00 Nasal Cannula* 2 28 01/22/25 16:00 98.7 98.7 Total Intake and Output 01/21/25 01/21/25 01/22/25 15:00 23:00 07:00 Intake Total 22.269 ml 319.454 ml 614.298 ml Output Total 2000 ml 0 ml Balance 22.269 ml -1680.546 ml 614.298 ml medications Current Medications Medications Dose Ordered Sig/Honey Route Start Time Stop Time Status Last Admin Dose Admin Diagnostic Test (Pha) 1 strip Q6HR 01/09/25 06:00 01/22/25 17:56 1 STRIP Insulin Human Regular Q6HR SC 01/09/25 06:00 01/22/25 17:56 3 UNITS Dextrose 50 ml UD PRN IV 01/09/25 00:30 01/18/25 10:40 50 ML Pantoprazole Sodium 40 mg DAILY IV 01/10/25 10:00 01/22/25 11:21 40 MG Ondansetron HCl 4 mg Q8HPRN PRN IV 01/09/25 10:30 01/20/25 19:41 4 MG Acetaminophen 650 mg Q6HP PRN PO 01/09/25 10:30 01/22/25 11:22 650 MG Ferrous Sulfate 325 mg BIDWM PO 01/10/25 18:00 01/22/25 17:36 325 MG Sevelamer HCl 800 mg TIDWM PO 01/10/25 18:00 01/22/25 17:57 800 MG Gabapentin 100 mg TID PO 01/11/25 14:00 01/22/25 13:57 100 MG Midodrine 5 mg TID@0600,1200,1800 PO 01/12/25 18:00 01/22/25 17:36 5 MG Emollient Ointment 1 applic PRN PRN TOP 01/14/25 10:30 Linezolid 300 ml @ 150 mls/hr Q12HR@0400,1600 IV 01/14/25 16:00 01/22/25 17:36 150 MLS/HR Albumin Human 100 ml @ 100 mls/hr PRN PRN IV 01/15/25 10:30 01/17/25 18:15 100 MLS/HR Multivit/Ca Carb/ B Cmplx/FA/Prenat 1 tab DAILY PO 01/16/25 10:00 01/22/25 11:21 1 TAB Fluconazole 200 mg DAILY PO 01/17/25 10:15 01/22/25 11:21 200 MG Throat Lozenges 1 carl Q2HP PRN MT 01/17/25 17:30 01/21/25 17:49 1 CARL Amiodarone HCl 400 mg Q12HR PO 01/18/25 22:00 01/22/25 11:21 400 MG Lorazepam 1 mg Q2HP PRN IV 01/19/25 12:00 01/19/25 12:29 1 MG Morphine Sulfate 2 mg Q2HPRN PRN IV 01/19/25 12:00 01/21/25 16:38 2 MG Phenylephrine HCl 80 mg/Sodium Chloride 250 ml @ 7.5 mls/hr Q24H IV 01/19/25 12:00 Hydrocortisone Sodium Succinate 100 mg Q8HR IV 01/19/25 22:00 01/22/25 13:57 100 MG Polyethylene Glycol 17 gm DAILYPRN PRN PO 01/21/25 12:15 01/22/25 11:22 17 GM Sennosides 8.6 mg QHSP PRN PO 01/21/25 12:15 Norepinephrine Bitartrate 32 mg/ Sodium Chloride 250 ml @ 0.938 mls/ hr Q24H IV 01/21/25 12:15 01/21/25 15:13 2.813 MLS/HR Examination: LUNGS:Abnormal, CVS:Abnormal, MSK:Abnormal laboratory and microbiology Laboratory Tests 01/22/25 04:48 Test 01/22/25 04:48 Range/Units Serum Glucose 156 H 74-106 mg/dL Microbiology Date/Time Source Procedure Growth Status 01/17/25 17:30 Blood Blood Culture - Final NO GROWTH AFTER 5 DAYS OF INCUBATION. Complete 01/10/25 12:45 Ascities Fluid Gram Stain - Final Complete 01/10/25 12:45 Ascities Fluid Body Fluid Culture - Final Complete 01/09/25 14:00 Sputum Gram Stain - Final Complete 01/09/25 14:00 Respiratory Culture - Final Presumptive Lisa albicans Complete 01/09/25 05:00 Nose MRSA Screen - Final Complete Problem List/Assessment/Plan Problem List/Assessment/Plan End-stage renal disease on hemodialysis Heart failure with recent pericardial drainage due to recurrent pericardial effusions Refractory ascites due to cirrhosis with frequent paracentesis Diabetes Shock cardiogenic vs septic hyperkalemia VRE bacteremia recs HD tomorrow on pressors Plan discussed with: Patient, Other Dietary Evaluation Review Comments: 1) Nepro carb steady 240ml BID (ordered per ONS protocol) 2) Neprhro-Kaela 1 tab daily 3) Continue current plan of care Expected Outcomes/Goals: To meet >75% estimated needs Fu 3-5 days LARISA MCKEON MD Jan 22, 2025 18:35
[2025-01-22] MEDS: SENNA 8.6 MG TAB PO PRN (21:53)
--- NOTE | 2025-01-22 22:46 | DVHPN2 ---
Progress Note - Dictate Date Seen: Jan 22, 2025 Medical Necessity Reason Pt with a Central, PICC or Fol: Yes The following are medically ne: Central Line Subjective Patient was seen and evaluated in follow up in the ICU. No overnight events. Patient is on 2 LPM NC. BUN 24, Equipment Man 3.08. Final blood cultures showed no growth. vital signs Vital Sign Date Time Temp Pulse Resp B/P (MAP) Pulse Ox O2 Delivery O2 Flow Rate FiO2 01/22/25 20:15 77 9 89/56 (67) 97 01/22/25 20:00 Nasal Cannula* 2 28 01/22/25 20:00 97.8 97.8 Total Intake and Output 01/21/25 01/21/25 01/22/25 15:00 23:00 07:00 Intake Total 22.269 ml 319.454 ml 614.298 ml Output Total 2000 ml 0 ml Balance 22.269 ml -1680.546 ml 614.298 ml medications Current Medications Medications Dose Ordered Sig/Honey Route Start Time Stop Time Status Last Admin Dose Admin Diagnostic Test (Pha) 1 strip Q6HR 01/09/25 06:00 01/22/25 17:56 1 STRIP Insulin Human Regular Q6HR SC 01/09/25 06:00 01/22/25 17:56 3 UNITS Dextrose 50 ml UD PRN IV 01/09/25 00:30 01/18/25 10:40 50 ML Pantoprazole Sodium 40 mg DAILY IV 01/10/25 10:00 01/22/25 11:21 40 MG Ondansetron HCl 4 mg Q8HPRN PRN IV 01/09/25 10:30 01/20/25 19:41 4 MG Acetaminophen 650 mg Q6HP PRN PO 01/09/25 10:30 01/22/25 11:22 650 MG Ferrous Sulfate 325 mg BIDWM PO 01/10/25 18:00 01/22/25 17:36 325 MG Sevelamer HCl 800 mg TIDWM PO 01/10/25 18:00 01/22/25 17:57 800 MG Gabapentin 100 mg TID PO 01/11/25 14:00 01/22/25 21:53 100 MG Midodrine 5 mg TID@0600,1200,1800 PO 01/12/25 18:00 01/22/25 17:36 5 MG Emollient Ointment 1 applic PRN PRN TOP 01/14/25 10:30 Linezolid 300 ml @ 150 mls/hr Q12HR@0400,1600 IV 01/14/25 16:00 01/22/25 17:36 150 MLS/HR Albumin Human 100 ml @ 100 mls/hr PRN PRN IV 01/15/25 10:30 01/17/25 18:15 100 MLS/HR Multivit/Ca Carb/ B Cmplx/FA/Prenat 1 tab DAILY PO 01/16/25 10:00 01/22/25 11:21 1 TAB Fluconazole 200 mg DAILY PO 01/17/25 10:15 01/22/25 11:21 200 MG Throat Lozenges 1 carl Q2HP PRN MT 01/17/25 17:30 01/21/25 17:49 1 CARL Amiodarone HCl 400 mg Q12HR PO 01/18/25 22:00 01/22/25 21:53 400 MG Lorazepam 1 mg Q2HP PRN IV 01/19/25 12:00 01/19/25 12:29 1 MG Morphine Sulfate 2 mg Q2HPRN PRN IV 01/19/25 12:00 01/21/25 16:38 2 MG Phenylephrine HCl 80 mg/Sodium Chloride 250 ml @ 7.5 mls/hr Q24H IV 01/19/25 12:00 Hydrocortisone Sodium Succinate 100 mg Q8HR IV 01/19/25 22:00 01/22/25 21:53 100 MG Polyethylene Glycol 17 gm DAILYPRN PRN PO 01/21/25 12:15 01/22/25 11:22 17 GM Sennosides 8.6 mg QHSP PRN PO 01/21/25 12:15 01/22/25 21:53 8.6 MG Norepinephrine Bitartrate 32 mg/ Sodium Chloride 250 ml @ 0.938 mls/ hr Q24H IV 01/21/25 12:15 01/21/25 15:13 2.813 MLS/HR objective GENERAL: Alert and oriented x 3. No acute distress. EYES: PERRL, EOMI. Anicteric. HENT: Moist mucous membranes. LUNGS: Clear to auscultation bilaterally. CARDIOVASCULAR: Regular rate and rhythm. ABDOMEN: Ascites, large distended abdomen. EXTREMITIES: No edema. NEUROLOGIC: No focal neurological deficits. SKIN: Mottling to bilateral lower extremities. Bilateral feet cool to touch. laboratory and microbiology Laboratory Tests 01/22/25 04:48 Test 01/22/25 04:48 Range/Units Serum Glucose 156 H 74-106 mg/dL Problem List Atrial tachycardia, now in junctional rhythm. NSTEMI, likely type II. Chronic HFpEF with right-sided heart failure, NYHA class III. Hx of atrial fibrillation (on amiodarone and Eliquis). Chronic pericardial effusion. History of hypertension. Hyperlipidemia. Liver cirrhosis with frequent paracentesis. Ascites. Type 2 diabetes mellitus. End-stage renal disease on hemodialysis. Assessment/Plan Continued all current supportive medical care. Amiodarone. GI prophylactics. IV antibiotics as ordered. Morphine for pain management. Vasopressors for hemodynamic support. Additional plan as per the hospital course. Critical care time of 45 minutes provided to include time spent evaluation of patient at bedside, when appropriate patient/family education for diagnosis, treatment plan, review of pertinent medical information and discussion of care with specialty providers and PCP. Dietary Evaluation Review Comments: 1) Nepro carb steady 240ml BID (ordered per ONS protocol) 2) Neprhro-Kaela 1 tab daily 3) Continue current plan of care Expected Outcomes/Goals: To meet >75% estimated needs Fu 3-5 days Plan discussed with: Patient SOREN MARTINEZ MD Jan 22, 2025 22:46
[2025-01-23] VITALS (94 sets, daily range): BP systolic 74–113; BP diastolic 44–66; PULSE 67–105; RESP 7–22; TEMP 97.5–98; O2SAT 68–100
[2025-01-23 05:10] LABS: Basophils # (auto) 0 10 ^3/uL (0-0.2); Basophils % (auto) 0.1 % (0.0-2.0); Eosinophils # (auto) 0 10 ^3/uL (0-0.8); Hematocrit 31.4 % (36.0-46.0); Hemoglobin 10.2 g/dL (12.2-16.2); Lymphocytes # (auto) 0.3 10 ^3/uL (0.4-5.4); Lymphocytes % (auto) 3.6 % (10.0-50.0); Mean Corpuscular Hemoglobin 32.2 pg (28.0-32.0); Mean Corpuscular Hgb Conc. 32.6 g/dL (32.0-36.0); Mean Corpuscular Volume 98.6 fL (80.0-100.0); Monocytes # (auto) 0.1 10 ^3/uL (0-1.3); Monocytes % (auto) 1.2 % (0.0-12.0); Neutrophils % (auto) 95.1 % (37.0-80.0); Nucleated Red Blood Cells % 0.4 %; Platelet Count (auto) 77 10^3/uL (140-450); Red Blood Cells 3.18 10^6/uL (4.0-5.20); Red Cell Distribution Width 16.8 % (11.8-14.3); White Blood Cell 7.4 10^3/uL (4.4-10.8)
[2025-01-23 05:23] LABS: Albumin 3.4 g/dL (3.2-4.8); Anion Gap 12 (5-15); BUN/Creatinine Ratio 9.8 (10.0-20.0); Calcium 9.1 mg/dL (8.7-10.4); Carbon Dioxide 23 mmol/L (20-31)
[2025-01-23 05:34] LABS: Alanine Aminotransferase < 9 U/L (7-40); Alkaline Phosphatase 178 U/L (46-116); Aspartate Aminotransferase 12 U/L (13-40); Blood Urea Nitrogen 36 mg/dL (9-23); Chloride 92 mmol/L (98-107); Glucose 244 mg/dL (74-106); Potassium 5.1 mmol/L (3.5-5.1); Sodium 127 mmol/L (136-145); Total Protein 5.4 g/dL (5.7-8.2)
--- NOTE | 2025-01-23 10:27 | MEDREC ---
[facility] ASP Intervention Section I [facility] ASP Intervention: Review courses of therapy (10 DAYS ON LINEZOLID / ESRD PLATELET COUNT DROPPING - PLEASE CONSIDER SWITCHING TO ANOTHER ANTIBIOTIC FOR ENTEROCOCCUS VRE IF CLINICALLY RELEVANT ) HOLDEN JAIMES PHARMACIST Jan 23, 2025 10:27
--- NOTE | 2025-01-23 12:08 | DVHPN2 ---
Progress Note Date Seen: Jan 23, 2025 Resident Creating Document: ROBERT RAHMAN RESIDENT Medical Necessity Reason Pt with a Central, PICC or Fol: Yes The following are medically ne: Central Line Subjective Review of Systems new echo ordered, Objective vital signs Vital Sign Date Time Temp Pulse Resp B/P (MAP) Pulse Ox O2 Delivery O2 Flow Rate FiO2 01/23/25 10:45 77 12 96/49 (65) 91 01/23/25 10:00 Nasal Cannula* 2 28 01/23/25 08:00 97.7 97.7 Total Intake and Output 01/22/25 01/22/25 01/23/25 15:00 23:00 07:00 Intake Total 161.953 ml 1063.128 ml 760.547 ml Output Total 1 ml Balance 161.953 ml 1063.128 ml 759.547 ml medications Current Medications Medications Dose Ordered Sig/Honey Route Start Time Stop Time Status Last Admin Dose Admin Diagnostic Test (Pha) 1 strip Q6HR 01/09/25 06:00 01/23/25 11:42 1 STRIP Insulin Human Regular Q6HR SC 01/09/25 06:00 01/23/25 11:40 3 UNITS Dextrose 50 ml UD PRN IV 01/09/25 00:30 01/18/25 10:40 50 ML Pantoprazole Sodium 40 mg DAILY IV 01/10/25 10:00 01/23/25 09:21 40 MG Ondansetron HCl 4 mg Q8HPRN PRN IV 01/09/25 10:30 01/20/25 19:41 4 MG Acetaminophen 650 mg Q6HP PRN PO 01/09/25 10:30 01/22/25 11:22 650 MG Ferrous Sulfate 325 mg BIDWM PO 01/10/25 18:00 01/23/25 09:22 325 MG Sevelamer HCl 800 mg TIDWM PO 01/10/25 18:00 01/23/25 11:44 800 MG Gabapentin 100 mg TID PO 01/11/25 14:00 01/23/25 05:49 100 MG Midodrine 5 mg TID@0600,1200,1800 PO 01/12/25 18:00 01/23/25 11:45 5 MG Emollient Ointment 1 applic PRN PRN TOP 01/14/25 10:30 Linezolid 300 ml @ 150 mls/hr Q12HR@0400,1600 IV 01/14/25 16:00 01/23/25 04:19 150 MLS/HR Albumin Human 100 ml @ 100 mls/hr PRN PRN IV 01/15/25 10:30 01/17/25 18:15 100 MLS/HR Multivit/Ca Carb/ B Cmplx/FA/Prenat 1 tab DAILY PO 01/16/25 10:00 01/23/25 09:22 1 TAB Fluconazole 200 mg DAILY PO 01/17/25 10:15 01/23/25 09:22 200 MG Throat Lozenges 1 carl Q2HP PRN MT 01/17/25 17:30 01/21/25 17:49 1 CARL Amiodarone HCl 400 mg Q12HR PO 01/18/25 22:00 01/23/25 09:21 400 MG Lorazepam 1 mg Q2HP PRN IV 01/19/25 12:00 01/19/25 12:29 1 MG Morphine Sulfate 2 mg Q2HPRN PRN IV 01/19/25 12:00 01/21/25 16:38 2 MG Phenylephrine HCl 80 mg/Sodium Chloride 250 ml @ 7.5 mls/hr Q24H IV 01/19/25 12:00 Hydrocortisone Sodium Succinate 100 mg Q8HR IV 01/19/25 22:00 01/23/25 05:49 100 MG Polyethylene Glycol 17 gm DAILYPRN PRN PO 01/21/25 12:15 01/22/25 11:22 17 GM Sennosides 8.6 mg QHSP PRN PO 01/21/25 12:15 01/22/25 21:53 8.6 MG Norepinephrine Bitartrate 32 mg/ Sodium Chloride 250 ml @ 0.938 mls/ hr Q24H IV 01/21/25 12:15 01/21/25 15:13 2.813 MLS/HR Examination GENERAL: Alert and oriented x 3. No acute distress. EYES: PERRL, EOMI. Anicteric. HENT: Moist mucous membranes. LUNGS: Clear to auscultation bilaterally. CARDIOVASCULAR: Regular rate and rhythm. ABDOMEN: Ascites, large distended abdomen. EXTREMITIES: No edema. NEUROLOGIC: No focal neurological deficits. SKIN: Mottling to bilateral lower extremities. Bilateral feet cool to touch. laboratory and microbiology Laboratory Tests 01/23/25 04:50 Test 01/23/25 04:50 Range/Units Serum Glucose 244 H 74-106 mg/dL Microbiology Date/Time Source Procedure Growth Status 01/17/25 17:30 Blood Blood Culture - Final NO GROWTH AFTER 5 DAYS OF INCUBATION. Complete 01/10/25 12:45 Ascities Fluid Gram Stain - Final Complete 01/10/25 12:45 Ascities Fluid Body Fluid Culture - Final Complete 01/09/25 14:00 Sputum Gram Stain - Final Complete 01/09/25 14:00 Respiratory Culture - Final Presumptive Lisa albicans Complete 01/09/25 05:00 Nose MRSA Screen - Final Complete Problem List/Assessment/Plan Problem List/Assessment/Plan Assessment/ Impression Acute hypoxemic respiratory failure Liver cirrhosis ESRD on HD Ascites Plan: Events Low oxygen requirements On 2 liters nasal cannula remains On pressors for hemodynamic support levophed stress dose steroids ?adrenal insufficiency events s/p paracentesis Labs and imaging reviewed Supplemental oxygen Titrate to maintain sats 90% or above Incentive spirometry Aspiration precautions Continue antibiotics Bronchodilators Monitor renal function HD as per nephrology Management deferred Monitor electrolytes Supplement as needed Case discussed with Dr. Neri Plan discussed with: Patient Dietary Evaluation Review Comments: 1) Nepro carb steady 240ml BID (ordered per ONS protocol) 2) Neprhro-Kaela 1 tab daily 3) Continue current plan of care Expected Outcomes/Goals: To meet >75% estimated needs Fu 3-5 days Date of Service: Jan 23, 2025 Billing Provider: MARIA FERNANDA NERI MD Common Visit Codes: NOT BILLABLE ROBERT RAHMAN RESIDENT Jan 23, 2025 12:08 MARIA FERNANDA NERI MD January 26, 2025 13:59
--- NOTE | 2025-01-23 14:07 | DVHPN2 ---
Assessment/Plan Assessment/Plan ICU notes covering in HFNC 30/, dusky fingertips RUE>LUE, LE equal, pulse RLE > LLE. possible pressor related. Fem TLC on but pt likely vasculopath, will attempt new LTC tomorrow. new echo ordered, concerned for pulm HTN (prior echo 12/18 with torrential TR, echo 01/18 no color done, loud late peaking murmur in physical. seen today during rounds, on NC. maintain spo2 >89. platelets worse on linezolid but benefits outweighs risks of covering VRE bacteremia. still on pressor physical exam on HFNC AOx3 MMM coarse breath sounds s1 s2 RRR systolic murmur abdomen distended LE edema labs ekg imaging reviewed assessment and plan Acute hepatic/metabolic/toxic encephalopathy Acute hypoxic respiratory failure due to presumptive Lisa albicans pneumonia, and acute on chronic Septic shock due to Enterococcus faecium - VRE bacteremia and presumptive Lisa albicans pneumonia Decompensated liver cirrhosis with refractory ascites status post recurrent paracentesis (last this morning of almost 4 liters), thrombocytopenia, and coagulopathy ACS ruled out Diabetes mellitus type 2 Blindness Hearing loss Atrial tachycardia, now in junctional rhythm. Type 2 [place], demand ischemia Acute on chronic HFpEF with right-sided heart failure; with chronic pericardial effusion status post recurrent pericardiocentesis History of atrial fibrillation Normocytic anemia; most likely inflammatory End-stage renal disease on hemodialysis pulmonary edema vs ARDS r/o , MR r/o pHTN slow transit constipation c/w HFNC, maintain spo2 >89% repeat echo might benefit from swans vs GOC discussion c/w rest of management c/w linezolid enema diet cardiac dvt ppx on AC gi ppx protonix full code condition critical prognosis grim 45 minutes critical care time Plan discussed with: Patient Date of Service: Jan 23, 2025 Billing Provider: BINTA VELAZQUEZ MD Common Visit Codes: [id number] CARE 30-74 MIN BINTA VELAZQUEZ MD Jan 23, 2025 14:07
--- NOTE | 2025-01-23 16:29 | DVHPN2 ---
Progress Note Date Seen: Jan 23, 2025 Medical Necessity Reason Pt with a Central, PICC or Fol: Yes The following are medically ne: Central Line Subjective Patient reports: Other (no events) Review of Systems: Deferred Objective vital signs Vital Sign Date Time Temp Pulse Resp B/P (MAP) Pulse Ox O2 Delivery O2 Flow Rate FiO2 01/23/25 15:30 69 7 97/56 (70) 98 01/23/25 14:00 Nasal Cannula* 2 28 01/23/25 08:00 97.7 97.7 Total Intake and Output 01/22/25 01/22/25 01/23/25 15:00 23:00 07:00 Intake Total 161.953 ml 1063.128 ml 760.547 ml Output Total 1 ml Balance 161.953 ml 1063.128 ml 759.547 ml medications Current Medications Medications Dose Ordered Sig/Honey Route Start Time Stop Time Status Last Admin Dose Admin Diagnostic Test (Pha) 1 strip Q6HR 01/09/25 06:00 01/23/25 11:42 1 STRIP Insulin Human Regular Q6HR SC 01/09/25 06:00 01/23/25 11:40 3 UNITS Dextrose 50 ml UD PRN IV 01/09/25 00:30 01/18/25 10:40 50 ML Pantoprazole Sodium 40 mg DAILY IV 01/10/25 10:00 01/23/25 09:21 40 MG Ondansetron HCl 4 mg Q8HPRN PRN IV 01/09/25 10:30 01/20/25 19:41 4 MG Acetaminophen 650 mg Q6HP PRN PO 01/09/25 10:30 01/22/25 11:22 650 MG Ferrous Sulfate 325 mg BIDWM PO 01/10/25 18:00 01/23/25 09:22 325 MG Sevelamer HCl 800 mg TIDWM PO 01/10/25 18:00 01/23/25 11:44 800 MG Gabapentin 100 mg TID PO 01/11/25 14:00 01/23/25 13:59 100 MG Midodrine 5 mg TID@0600,1200,1800 PO 01/12/25 18:00 01/23/25 11:45 5 MG Emollient Ointment 1 applic PRN PRN TOP 01/14/25 10:30 Linezolid 300 ml @ 150 mls/hr Q12HR@0400,1600 IV 01/14/25 16:00 01/23/25 04:19 150 MLS/HR Albumin Human 100 ml @ 100 mls/hr PRN PRN IV 01/15/25 10:30 01/17/25 18:15 100 MLS/HR Multivit/Ca Carb/ B Cmplx/FA/Prenat 1 tab DAILY PO 01/16/25 10:00 01/23/25 09:22 1 TAB Fluconazole 200 mg DAILY PO 01/17/25 10:15 01/23/25 09:22 200 MG Throat Lozenges 1 carl Q2HP PRN MT 01/17/25 17:30 01/23/25 13:16 1 CARL Amiodarone HCl 400 mg Q12HR PO 01/18/25 22:00 01/23/25 09:21 400 MG Lorazepam 1 mg Q2HP PRN IV 01/19/25 12:00 01/19/25 12:29 1 MG Morphine Sulfate 2 mg Q2HPRN PRN IV 01/19/25 12:00 01/21/25 16:38 2 MG Phenylephrine HCl 80 mg/Sodium Chloride 250 ml @ 7.5 mls/hr Q24H IV 01/19/25 12:00 Hydrocortisone Sodium Succinate 100 mg Q8HR IV 01/19/25 22:00 01/23/25 13:59 100 MG Polyethylene Glycol 17 gm DAILYPRN PRN PO 01/21/25 12:15 01/22/25 11:22 17 GM Sennosides 8.6 mg QHSP PRN PO 01/21/25 12:15 01/22/25 21:53 8.6 MG Norepinephrine Bitartrate 32 mg/ Sodium Chloride 250 ml @ 0.938 mls/ hr Q24H IV 01/21/25 12:15 01/21/25 15:13 2.813 MLS/HR Examination: GENERAL:Abnormal, MSK:Abnormal, NEURO:Abnormal laboratory and microbiology Laboratory Tests 01/23/25 04:50 Test 01/23/25 04:50 Range/Units Serum Glucose 244 H 74-106 mg/dL Microbiology Date/Time Source Procedure Growth Status 01/17/25 17:30 Blood Blood Culture - Final NO GROWTH AFTER 5 DAYS OF INCUBATION. Complete 01/10/25 12:45 Ascities Fluid Gram Stain - Final Complete 01/10/25 12:45 Ascities Fluid Body Fluid Culture - Final Complete 01/09/25 14:00 Sputum Gram Stain - Final Complete 01/09/25 14:00 Respiratory Culture - Final Presumptive Lisa albicans Complete 01/09/25 05:00 Nose MRSA Screen - Final Complete Problem List/Assessment/Plan Problem List/Assessment/Plan End-stage renal disease on hemodialysis Heart failure with recent pericardial drainage due to recurrent pericardial effusions Refractory ascites due to cirrhosis with frequent paracentesis Diabetes Shock cardiogenic vs septic hyperkalemia VRE bacteremia recs HD today on pressors Plan discussed with: Other My Orders My Orders Orders - LARISA MCKEON MD Procedure Category Date Status Time Hemodialysis Orders ORDERS 01/23/25 Transmitted 14:37 Dietary Evaluation Review Comments: 1) Nepro carb steady 240ml BID (ordered per [facility] protocol) 2) Neprhro-Kaela 1 tab daily 3) Continue current plan of care Expected Outcomes/Goals: To meet >75% estimated needs Fu 3-5 days LARISA MCKEON MD Jan 23, 2025 16:29
--- NOTE | 2025-01-23 22:32 | DVHPN2 ---
Progress Note - Dictate Date Seen: Jan 23, 2025 Medical Necessity Reason Pt with a Central, PICC or Fol: Yes The following are medically ne: Central Line Subjective Patient was seen and evaluated in follow up in the ICU. Patient is on 2 LPM NC. Patient is continued on pressors. NA 127, CL 92, BUN 36, FISH INSPECTOR 3.67. vital signs Vital Sign Date Time Temp Pulse Resp B/P (MAP) Pulse Ox O2 Delivery O2 Flow Rate FiO2 01/23/25 13:00 73 10 91/54 (66) 99 01/23/25 12:00 Nasal Cannula* 2 28 01/23/25 08:00 97.7 97.7 Total Intake and Output 01/22/25 01/22/25 01/23/25 15:00 23:00 07:00 Intake Total 161.953 ml 1063.128 ml 760.547 ml Output Total 1 ml Balance 161.953 ml 1063.128 ml 759.547 ml medications Current Medications Medications Dose Ordered Sig/Honey Route Start Time Stop Time Status Last Admin Dose Admin Diagnostic Test (Pha) 1 strip Q6HR 01/09/25 06:00 01/23/25 11:42 1 STRIP Insulin Human Regular Q6HR SC 01/09/25 06:00 01/23/25 11:40 3 UNITS Dextrose 50 ml UD PRN IV 01/09/25 00:30 01/18/25 10:40 50 ML Pantoprazole Sodium 40 mg DAILY IV 01/10/25 10:00 01/23/25 09:21 40 MG Ondansetron HCl 4 mg Q8HPRN PRN IV 01/09/25 10:30 01/20/25 19:41 4 MG Acetaminophen 650 mg Q6HP PRN PO 01/09/25 10:30 01/22/25 11:22 650 MG Ferrous Sulfate 325 mg BIDWM PO 01/10/25 18:00 01/23/25 09:22 325 MG Sevelamer HCl 800 mg TIDWM PO 01/10/25 18:00 01/23/25 11:44 800 MG Gabapentin 100 mg TID PO 01/11/25 14:00 01/23/25 05:49 100 MG Midodrine 5 mg TID@0600,1200,1800 PO 01/12/25 18:00 01/23/25 11:45 5 MG Emollient Ointment 1 applic PRN PRN TOP 01/14/25 10:30 Linezolid 300 ml @ 150 mls/hr Q12HR@0400,1600 IV 01/14/25 16:00 01/23/25 04:19 150 MLS/HR Albumin Human 100 ml @ 100 mls/hr PRN PRN IV 01/15/25 10:30 01/17/25 18:15 100 MLS/HR Multivit/Ca Carb/ B Cmplx/FA/Prenat 1 tab DAILY PO 01/16/25 10:00 01/23/25 09:22 1 TAB Fluconazole 200 mg DAILY PO 01/17/25 10:15 01/23/25 09:22 200 MG Throat Lozenges 1 carl Q2HP PRN MT 01/17/25 17:30 01/21/25 17:49 1 CARL Amiodarone HCl 400 mg Q12HR PO 01/18/25 22:00 01/23/25 09:21 400 MG Lorazepam 1 mg Q2HP PRN IV 01/19/25 12:00 01/19/25 12:29 1 MG Morphine Sulfate 2 mg Q2HPRN PRN IV 01/19/25 12:00 01/21/25 16:38 2 MG Phenylephrine HCl 80 mg/Sodium Chloride 250 ml @ 7.5 mls/hr Q24H IV 01/19/25 12:00 Hydrocortisone Sodium Succinate 100 mg Q8HR IV 01/19/25 22:00 01/23/25 05:49 100 MG Polyethylene Glycol 17 gm DAILYPRN PRN PO 01/21/25 12:15 01/22/25 11:22 17 GM Sennosides 8.6 mg QHSP PRN PO 01/21/25 12:15 01/22/25 21:53 8.6 MG Norepinephrine Bitartrate 32 mg/ Sodium Chloride 250 ml @ 0.938 mls/ hr Q24H IV 01/21/25 12:15 01/21/25 15:13 2.813 MLS/HR objective GENERAL: Alert and oriented x 3. No acute distress. EYES: PERRL, EOMI. Anicteric. HENT: Moist mucous membranes. LUNGS: Clear to auscultation bilaterally. CARDIOVASCULAR: Regular rate and rhythm. ABDOMEN: Ascites, large distended abdomen. EXTREMITIES: No edema. NEUROLOGIC: No focal neurological deficits. SKIN: Mottling to bilateral lower extremities. Bilateral feet cool to touch. laboratory and microbiology Laboratory Tests 01/23/25 04:50 Test 01/23/25 04:50 Range/Units Serum Glucose 244 H 74-106 mg/dL Problem List Atrial tachycardia, now in junctional rhythm. NSTEMI, likely type II. Chronic HFpEF with right-sided heart failure, NYHA class III. Hx of atrial fibrillation (on amiodarone and Eliquis). Chronic pericardial effusion. History of hypertension. Hyperlipidemia. Liver cirrhosis with frequent paracentesis. Ascites. Type 2 diabetes mellitus. End-stage renal disease on hemodialysis. Assessment/Plan Continued all current supportive medical care. Amiodarone. GI prophylactics. IV antibiotics as ordered. Morphine for pain management. Vasopressors for hemodynamic support. Additional plan as per the hospital course. Critical care time of 45 minutes provided to include time spent evaluation of patient at bedside, when appropriate patient/family education for diagnosis, treatment plan, review of pertinent medical information and discussion of care with specialty providers and PCP. Dietary Evaluation Review Comments: 1) Nepro carb steady 240ml BID (ordered per [facility] protocol) 2) Neprhro-Kaela 1 tab daily 3) Continue current plan of care Expected Outcomes/Goals: To meet >75% estimated needs Fu 3-5 days Plan discussed with: Patient SOREN MARTINEZ MD Jan 23, 2025 13:15
[2025-01-24] VITALS (91 sets, daily range): BP systolic 82–119; BP diastolic 45–70; PULSE 72–89; RESP 5–33; TEMP 97.6–99; O2SAT 65–100
[2025-01-24 06:14] LABS: Anion Gap 12 (5-15); Carbon Dioxide 25 mmol/L (20-31); Potassium 4.3 mmol/L (3.5-5.1)
[2025-01-24] MEDS: MIDODRINE HCL 10 MG TAB PO SCH (06:14)
[2025-01-24 06:16] LABS: Basophils # (auto) 0 10 ^3/uL (0-0.2); Basophils % (auto) 0.1 % (0.0-2.0); Calcium 9.6 mg/dL (8.7-10.4); Chloride 93 mmol/L (98-107); Eosinophils # (auto) 0 10 ^3/uL (0-0.8); Lymphocytes # (auto) 0.2 10 ^3/uL (0.4-5.4); Lymphocytes % (auto) 2.3 % (10.0-50.0); Mean Corpuscular Hemoglobin 31.7 pg (28.0-32.0); Mean Corpuscular Hgb Conc. 32.2 g/dL (32.0-36.0); Mean Corpuscular Volume 98.6 fL (80.0-100.0); Monocytes # (auto) 0.3 10 ^3/uL (0-1.3); Monocytes % (auto) 3.4 % (0.0-12.0); Neutrophils # (auto) 8.4 10 ^3/uL (1.6-8.6); Neutrophils % (auto) 94.2 % (37.0-80.0); Nucleated Red Blood Cells % 0.8 %; Platelet Count (auto) 73 10^3/uL (140-450); Red Blood Cells 3.14 10^6/uL (4.0-5.20); Red Cell Distribution Width 16.1 % (11.8-14.3); Sodium 130 mmol/L (136-145); White Blood Cell 8.9 10^3/uL (4.4-10.8)
[2025-01-24 06:21] LABS: BUN/Creatinine Ratio 10.5 (10.0-20.0); Blood Urea Nitrogen 30 mg/dL (9-23); Glucose 199 mg/dL (74-106)
--- NOTE | 2025-01-24 10:39 | DVHPN2 ---
Progress Note Date Seen: January 24, 2025 Medical Necessity Reason Pt with a Central, PICC or Fol: Yes The following are medically ne: Central Line Subjective Patient reports: Other (Patient remains in ICU) Review of Systems: Deferred Objective vital signs Vital Sign Date Time Temp Pulse Resp B/P (MAP) Pulse Ox O2 Delivery O2 Flow Rate FiO2 01/24/25 10:00 8 99 Nasal Cannula* 2 28 01/24/25 08:15 83 100/51 (67) 01/24/25 08:00 98.0 98.0 Total Intake and Output 01/23/25 01/23/25 01/24/25 14:59 22:59 06:59 Intake Total 8.442 ml 434.692 ml 669.691 ml Output Total 1003 ml Balance 8.442 ml -568.308 ml 669.691 ml medications Current Medications Medications Dose Ordered Sig/Honey Route Start Time Stop Time Status Last Admin Dose Admin Diagnostic Test (Pha) 1 strip Q6HR 01/09/25 06:00 01/24/25 06:15 1 STRIP Insulin Human Regular Q6HR SC 01/09/25 06:00 01/24/25 06:08 4 UNITS Dextrose 50 ml UD PRN IV 01/09/25 00:30 01/18/25 10:40 50 ML Pantoprazole Sodium 40 mg DAILY IV 01/10/25 10:00 01/23/25 09:21 40 MG Ondansetron HCl 4 mg Q8HPRN PRN IV 01/09/25 10:30 01/20/25 19:41 4 MG Acetaminophen 650 mg Q6HP PRN PO 01/09/25 10:30 01/22/25 11:22 650 MG Ferrous Sulfate 325 mg BIDWM PO 01/10/25 18:00 01/24/25 08:04 325 MG Sevelamer HCl 800 mg TIDWM PO 01/10/25 18:00 01/24/25 08:04 800 MG Gabapentin 100 mg TID PO 01/11/25 14:00 01/24/25 06:15 100 MG Emollient Ointment 1 applic PRN PRN TOP 01/14/25 10:30 Linezolid 300 ml @ 150 mls/hr Q12HR@0400,1600 IV 01/14/25 16:00 01/24/25 03:11 150 MLS/HR Albumin Human 100 ml @ 100 mls/hr PRN PRN IV 01/15/25 10:30 01/17/25 18:15 100 MLS/HR Multivit/Ca Carb/ B Cmplx/FA/Prenat 1 tab DAILY PO 01/16/25 10:00 01/23/25 09:22 1 TAB Fluconazole 200 mg DAILY PO 01/17/25 10:15 01/23/25 09:22 200 MG Throat Lozenges 1 carl Q2HP PRN MT 01/17/25 17:30 01/23/25 21:19 1 CARL Amiodarone HCl 400 mg Q12HR PO 01/18/25 22:00 01/23/25 21:17 400 MG Lorazepam 1 mg Q2HP PRN IV 01/19/25 12:00 01/19/25 12:29 1 MG Morphine Sulfate 2 mg Q2HPRN PRN IV 01/19/25 12:00 01/24/25 02:05 2 MG Phenylephrine HCl 80 mg/Sodium Chloride 250 ml @ 7.5 mls/hr Q24H IV 01/19/25 12:00 Hydrocortisone Sodium Succinate 100 mg Q8HR IV 01/19/25 22:00 01/24/25 06:14 100 MG Polyethylene Glycol 17 gm DAILYPRN PRN PO 01/21/25 12:15 01/22/25 11:22 17 GM Sennosides 8.6 mg QHSP PRN PO 01/21/25 12:15 01/22/25 21:53 8.6 MG Norepinephrine Bitartrate 32 mg/ Sodium Chloride 250 ml @ 0.938 mls/ hr Q24H IV 01/21/25 12:15 01/24/25 00:09 2.813 MLS/HR Midodrine 10 mg TID@0600,1200,1800 PO 01/24/25 06:00 01/24/25 06:14 10 MG Examination: GENERAL:Abnormal, LUNGS:Abnormal, NEURO:Abnormal laboratory and microbiology Laboratory Tests 01/24/25 05:35 Test 01/24/25 05:35 Range/Units Serum Glucose 199 H 74-106 mg/dL Microbiology Date/Time Source Procedure Growth Status 01/17/25 17:30 Blood Blood Culture - Final NO GROWTH AFTER 5 DAYS OF INCUBATION. Complete 01/10/25 12:45 Ascities Fluid Gram Stain - Final Complete 01/10/25 12:45 Ascities Fluid Body Fluid Culture - Final Complete 01/09/25 14:00 Sputum Gram Stain - Final Complete 01/09/25 14:00 Respiratory Culture - Final Presumptive Lisa albicans Complete 01/09/25 05:00 Nose MRSA Screen - Final Complete Problem List/Assessment/Plan Problem List/Assessment/Plan End-stage renal disease on hemodialysis Heart failure with recent pericardial drainage due to recurrent pericardial effusions Refractory ascites due to cirrhosis with frequent paracentesis Diabetes Shock cardiogenic vs septic hyperkalemia VRE bacteremia recs HD today repeating for volume removal Plan discussed with: Other My Orders My Orders Orders - LARISA MCKEON MD Procedure Category Date Status Time Hemodialysis Orders ORDERS 01/23/25 Transmitted 14:37 Dietary Evaluation Review Comments: 1) Nepro carb steady 240ml BID (ordered per [facility] protocol) 2) Neprhro-Kaela 1 tab daily 3) Continue current plan of care Expected Outcomes/Goals: To meet >75% estimated needs Fu 3-5 days LARISA MCKEON MD January 24, 2025 10:39
--- NOTE | 2025-01-24 11:56 | DVHPN2 ---
Progress Note Date Seen: January 24, 2025 Resident Creating Document: ROBERT RAHMAN RESIDENT Medical Necessity Reason Pt with a Central, PICC or Fol: Yes The following are medically ne: Central Line Subjective Review of Systems Patient seen and examined at bedside, no new complaints Objective vital signs Vital Sign Date Time Temp Pulse Resp B/P (MAP) Pulse Ox O2 Delivery O2 Flow Rate FiO2 01/24/25 10:00 80 01/24/25 10:00 8 99 Nasal Cannula* 2 28 01/24/25 08:15 100/51 (67) 01/24/25 08:00 98.0 98.0 Total Intake and Output 01/23/25 01/23/25 01/24/25 14:59 22:59 06:59 Intake Total 8.442 ml 434.692 ml 669.691 ml Output Total 1003 ml Balance 8.442 ml -568.308 ml 669.691 ml medications Current Medications Medications Dose Ordered Sig/Honey Route Start Time Stop Time Status Last Admin Dose Admin Diagnostic Test (Pha) 1 strip Q6HR 01/09/25 06:00 01/24/25 11:35 1 STRIP Insulin Human Regular Q6HR SC 01/09/25 06:00 01/24/25 11:36 2 UNITS Dextrose 50 ml UD PRN IV 01/09/25 00:30 01/18/25 10:40 50 ML Pantoprazole Sodium 40 mg DAILY IV 01/10/25 10:00 01/23/25 09:21 40 MG Ondansetron HCl 4 mg Q8HPRN PRN IV 01/09/25 10:30 01/20/25 19:41 4 MG Acetaminophen 650 mg Q6HP PRN PO 01/09/25 10:30 01/22/25 11:22 650 MG Ferrous Sulfate 325 mg BIDWM PO 01/10/25 18:00 01/24/25 08:04 325 MG Sevelamer HCl 800 mg TIDWM PO 01/10/25 18:00 01/24/25 08:04 800 MG Gabapentin 100 mg TID PO 01/11/25 14:00 01/24/25 06:15 100 MG Emollient Ointment 1 applic PRN PRN TOP 01/14/25 10:30 Linezolid 300 ml @ 150 mls/hr Q12HR@0400,1600 IV 01/14/25 16:00 01/24/25 03:11 150 MLS/HR Albumin Human 100 ml @ 100 mls/hr PRN PRN IV 01/15/25 10:30 01/17/25 18:15 100 MLS/HR Multivit/Ca Carb/ B Cmplx/FA/Prenat 1 tab DAILY PO 01/16/25 10:00 01/23/25 09:22 1 TAB Fluconazole 200 mg DAILY PO 01/17/25 10:15 01/23/25 09:22 200 MG Throat Lozenges 1 carl Q2HP PRN MT 01/17/25 17:30 01/23/25 21:19 1 CARL Amiodarone HCl 400 mg Q12HR PO 01/18/25 22:00 01/23/25 21:17 400 MG Lorazepam 1 mg Q2HP PRN IV 01/19/25 12:00 01/19/25 12:29 1 MG Morphine Sulfate 2 mg Q2HPRN PRN IV 01/19/25 12:00 01/24/25 02:05 2 MG Phenylephrine HCl 80 mg/Sodium Chloride 250 ml @ 7.5 mls/hr Q24H IV 01/19/25 12:00 Hydrocortisone Sodium Succinate 100 mg Q8HR IV 01/19/25 22:00 01/24/25 06:14 100 MG Polyethylene Glycol 17 gm DAILYPRN PRN PO 01/21/25 12:15 01/22/25 11:22 17 GM Sennosides 8.6 mg QHSP PRN PO 01/21/25 12:15 01/22/25 21:53 8.6 MG Norepinephrine Bitartrate 32 mg/ Sodium Chloride 250 ml @ 0.938 mls/ hr Q24H IV 01/21/25 12:15 01/24/25 00:09 2.813 MLS/HR Midodrine 10 mg TID@0600,1200,1800 PO 01/24/25 06:00 01/24/25 06:14 10 MG Examination GENERAL: Alert and oriented x 3. No acute distress. EYES: PERRL, EOMI. Anicteric. HENT: Moist mucous membranes. LUNGS: Clear to auscultation bilaterally. CARDIOVASCULAR: Regular rate and rhythm. ABDOMEN: Ascites, large distended abdomen. EXTREMITIES: No edema. NEUROLOGIC: No focal neurological deficits. SKIN: Mottling to bilateral lower extremities. Bilateral feet cool to touch. laboratory and microbiology Laboratory Tests 01/24/25 05:35 Test 01/24/25 05:35 Range/Units Serum Glucose 199 H 74-106 mg/dL Microbiology Date/Time Source Procedure Growth Status 01/17/25 17:30 Blood Blood Culture - Final NO GROWTH AFTER 5 DAYS OF INCUBATION. Complete 01/10/25 12:45 Ascities Fluid Gram Stain - Final Complete 01/10/25 12:45 Ascities Fluid Body Fluid Culture - Final Complete 01/09/25 14:00 Sputum Gram Stain - Final Complete 01/09/25 14:00 Respiratory Culture - Final Presumptive Lisa albicans Complete 01/09/25 05:00 Nose MRSA Screen - Final Complete Problem List/Assessment/Plan Problem List/Assessment/Plan Assessment/ Impression Acute hypoxemic respiratory failure Liver cirrhosis ESRD on HD Ascites Severe tricuspid regurgitation Plan: Events Low oxygen requirements On 2 liters nasal cannula remains On pressors for hemodynamic support Levophed as needed stress dose steroids ?adrenal insufficiency events s/p paracentesis Labs and imaging reviewed Supplemental oxygen Titrate to maintain sats 90% or above Incentive spirometry Aspiration precautions Continue antibiotics Bronchodilators Monitor renal function HD as per nephrology Management deferred Monitor electrolytes Supplement as needed Patient is undergoing hemodialysis today, Case discussed with Dr. Neri Plan discussed with: Patient Dietary Evaluation Review Comments: 1) Nepro carb steady 240ml BID (ordered per [facility] protocol) 2) Neprhro-Kaela 1 tab daily 3) Continue current plan of care Expected Outcomes/Goals: To meet >75% estimated needs Fu 3-5 days Date of Service: January 24, 2025 Billing Provider: MARIA FERNANDA NERI MD Common Visit Codes: NOT BILLABLE ROBERT RAHMAN RESIDENT January 24, 2025 11:56 MARIA FERNANDA NERI MD January 26, 2025 14:00
--- NOTE | 2025-01-24 13:27 | DVHPN2 ---
Assessment/Plan Assessment/Plan ICU notes covering in HFNC 30, dusky fingertips RUE>LUE, LE equal, pulse RLE > LLE. possible pressor related. Fem TLC on but pt likely vasculopath, will attempt new LTC tomorrow. new echo ordered, concerned for pulm HTN (prior echo 12/18 with torrential TR, echo 01/18 no color done, loud late peaking murmur in physical. seen today during rounds, on NC. maintain spo2 >89. still on pressor, HD today. GOC discussion. have BM after enema physical exam on [facility] AOx3 MMM coarse breath sounds s1 s2 RRR systolic murmur abdomen distended LE edema labs ekg imaging reviewed assessment and plan Acute hepatic/metabolic/toxic encephalopathy Acute hypoxic respiratory failure due to presumptive Lisa albicans pneumonia, and acute on chronic Septic shock due to Enterococcus faecium - VRE bacteremia and presumptive Lisa albicans pneumonia Decompensated liver cirrhosis with refractory ascites status post recurrent paracentesis (last this morning of almost 4 liters), thrombocytopenia, and coagulopathy ACS ruled out Diabetes mellitus type 2 Blindness Hearing loss Atrial tachycardia, now in junctional rhythm. Type 2 [place], demand ischemia Acute on chronic HFpEF with right-sided heart failure; with chronic pericardial effusion status post recurrent pericardiocentesis History of atrial fibrillation Normocytic anemia; most likely inflammatory End-stage renal disease on hemodialysis pulmonary edema vs ARDS r/o , MR r/o pHTN slow transit constipation c/w HFNC, maintain spo2 >89% repeat echo might benefit from swans vs GOC discussion c/w rest of management c/w linezolid enema - have BM diet cardiac dvt ppx on AC gi ppx protonix full code condition critical prognosis grim 45 minutes critical care time Plan discussed with: Patient My Orders Orders - BINTA VELAZQUEZ MD Procedure Category Date Status Time Soap Babar Enema ORDERS 01/23/25 Transmitted 14:05 Midodrine Tablet PHA 01/24/25 In Process (Proamatine Tablet) 06:00 Date of Service: January 24, 2025 Billing Provider: BINTA VELAZQUEZ MD Common Visit Codes: [id number] CARE 30-74 MIN BINTA VELAZQUEZ MD January 24, 2025 13:27
--- NOTE | 2025-01-24 22:02 | DVHPN2 ---
Progress Note - Dictate Date Seen: January 24, 2025 Medical Necessity Reason Pt with a Central, PICC or Fol: Yes The following are medically ne: Central Line Subjective Patient was seen and evaluated in follow up in the ICU. Patient is on 2 LPM NC. Patient remains on pressors. Patient is noted with intermittent confusion. Planned for HD. Repeat echo ordered. vital signs Vital Sign Date Time Temp Pulse Resp B/P (MAP) Pulse Ox O2 Delivery O2 Flow Rate FiO2 01/24/25 12:00 97.6 73 9 99/57 (71) 97 97.6 01/24/25 10:00 Nasal Cannula* 2 28 Total Intake and Output 01/23/25 01/23/25 01/24/25 15:00 23:00 07:00 Intake Total 7.504 ml 436.567 ml 669.691 ml Output Total 1003 ml Balance 7.504 ml -566.433 ml 669.691 ml medications Current Medications Medications Dose Ordered Sig/Honey Route Start Time Stop Time Status Last Admin Dose Admin Diagnostic Test (Pha) 1 strip Q6HR 01/09/25 06:00 01/24/25 11:35 1 STRIP Insulin Human Regular Q6HR SC 01/09/25 06:00 01/24/25 11:36 2 UNITS Dextrose 50 ml UD PRN IV 01/09/25 00:30 01/18/25 10:40 50 ML Pantoprazole Sodium 40 mg DAILY IV 01/10/25 10:00 01/23/25 09:21 40 MG Ondansetron HCl 4 mg Q8HPRN PRN IV 01/09/25 10:30 01/20/25 19:41 4 MG Acetaminophen 650 mg Q6HP PRN PO 01/09/25 10:30 01/22/25 11:22 650 MG Ferrous Sulfate 325 mg BIDWM PO 01/10/25 18:00 01/24/25 08:04 325 MG Sevelamer HCl 800 mg TIDWM PO 01/10/25 18:00 01/24/25 08:04 800 MG Gabapentin 100 mg TID PO 01/11/25 14:00 01/24/25 06:15 100 MG Emollient Ointment 1 applic PRN PRN TOP 01/14/25 10:30 Linezolid 300 ml @ 150 mls/hr Q12HR@0400,1600 IV 01/14/25 16:00 01/24/25 03:11 150 MLS/HR Albumin Human 100 ml @ 100 mls/hr PRN PRN IV 01/15/25 10:30 01/17/25 18:15 100 MLS/HR Multivit/Ca Carb/ B Cmplx/FA/Prenat 1 tab DAILY PO 01/16/25 10:00 01/23/25 09:22 1 TAB Fluconazole 200 mg DAILY PO 01/17/25 10:15 01/23/25 09:22 200 MG Throat Lozenges 1 carl Q2HP PRN MT 01/17/25 17:30 01/23/25 21:19 1 CARL Amiodarone HCl 400 mg Q12HR PO 01/18/25 22:00 01/23/25 21:17 400 MG Lorazepam 1 mg Q2HP PRN IV 01/19/25 12:00 01/19/25 12:29 1 MG Morphine Sulfate 2 mg Q2HPRN PRN IV 01/19/25 12:00 01/24/25 02:05 2 MG Phenylephrine HCl 80 mg/Sodium Chloride 250 ml @ 7.5 mls/hr Q24H IV 01/19/25 12:00 Hydrocortisone Sodium Succinate 100 mg Q8HR IV 01/19/25 22:00 01/24/25 06:14 100 MG Polyethylene Glycol 17 gm DAILYPRN PRN PO 01/21/25 12:15 01/22/25 11:22 17 GM Sennosides 8.6 mg QHSP PRN PO 01/21/25 12:15 01/22/25 21:53 8.6 MG Norepinephrine Bitartrate 32 mg/ Sodium Chloride 250 ml @ 0.938 mls/ hr Q24H IV 01/21/25 12:15 01/24/25 00:09 2.813 MLS/HR Midodrine 10 mg TID@0600,1200,1800 PO 01/24/25 06:00 01/24/25 06:14 10 MG objective GENERAL: Alert and oriented x 3. No acute distress. EYES: PERRL, EOMI. Anicteric. HENT: Moist mucous membranes. LUNGS: Clear to auscultation bilaterally. CARDIOVASCULAR: Regular rate and rhythm. Systolic murmur. ABDOMEN: Ascites, large distended abdomen. EXTREMITIES: No edema. NEUROLOGIC: No focal neurological deficits. SKIN: Mottling to bilateral lower extremities. Bilateral feet cool to touch. laboratory and microbiology Laboratory Tests 01/24/25 05:35 Test 01/24/25 05:35 Range/Units Serum Glucose 199 H 74-106 mg/dL Problem List Atrial tachycardia, now in junctional rhythm. NSTEMI, likely type II. Chronic HFpEF with right-sided heart failure, NYHA class III. History of atrial fibrillation (on amiodarone and Eliquis). Chronic pericardial effusion. History of hypertension. Hyperlipidemia. Decompensated liver cirrhosis with refractory ascites. Ascites. Type 2 diabetes mellitus. End-stage renal disease on hemodialysis. Acute hepatic/metabolic/toxic encephalopathy. Acute hypoxic respiratory failure. Septic shock due to Enterococcus faecium. Blindness. Hearing loss. Assessment/Plan Continued all current supportive medical care. Amiodarone. GI prophylactics. IV antibiotics as ordered. Morphine for pain management. Vasopressors for hemodynamic support. Additional plan as per the hospital course. Critical care time of 45 minutes provided to include time spent evaluation of patient at bedside, when appropriate patient/family education for diagnosis, treatment plan, review of pertinent medical information and discussion of care with specialty providers and PCP. Dietary Evaluation Review Comments: 1) Nepro carb steady 240ml BID (ordered per [facility] protocol) 2) Neprhro-Kaela 1 tab daily 3) Continue current plan of care Expected Outcomes/Goals: To meet >75% estimated needs Fu 3-5 days Plan discussed with: Patient SOREN MARTINEZ MD January 24, 2025 12:36
[2025-01-25] VITALS (94 sets, daily range): BP systolic 85–121; BP diastolic 43–67; PULSE 77–84; RESP 8–26; TEMP 97.9–98.6; O2SAT 68–100
[2025-01-25 05:14] LABS: Hemoglobin 9.5 g/dL (12.2-16.2); Red Blood Cells 2.98 10^6/uL (4.0-5.20)
[2025-01-25 05:17] LABS: Hematocrit 29.5 % (36.0-46.0); Mean Corpuscular Hgb Conc. 32.3 g/dL (32.0-36.0); Platelet Count (auto) 60 10^3/uL (140-450); Red Cell Distribution Width 16.4 % (11.8-14.3); White Blood Cell 9.7 10^3/uL (4.4-10.8)
[2025-01-25 05:27] LABS: Band Neutrophils % (manual) 0; Basophils % (manual) 0 (0.0-2.0); Blast Cells 0; Eosinophils % (manual) 0 (0-7); Metamyelocytes % 0; Myelocytes % 0; Promyelocytes % 0; Reactive Lymphocytes 0
[2025-01-25 05:34] LABS: Potassium 3.7 mmol/L (3.5-5.1)
[2025-01-25 05:35] LABS: Anion Gap 11 (5-15); Carbon Dioxide 27 mmol/L (20-31)
[2025-01-25 05:36] LABS: Calcium 9.8 mg/dL (8.7-10.4)
[2025-01-25 05:41] LABS: BUN/Creatinine Ratio 10.7 (10.0-20.0); Magnesium 2.1 mg/dL (1.6-2.6)
[2025-01-25 05:44] LABS: Blood Urea Nitrogen 23 mg/dL (9-23); Chloride 96 mmol/L (98-107); Glucose 270 mg/dL (74-106); Sodium 134 mmol/L (136-145)
[2025-01-25 06:15] LABS: Lymphocytes % (manual) 1 (10.0-50.0); Monocytes % (manual) 2 (0-12); Target Cell MODERATE
[2025-01-25 06:16] LABS: Large Platelets FEW; Platelet Estimate Decreased
--- NOTE | 2025-01-25 11:22 | DVHPN2 ---
Progress Note Date Seen: January 25, 2025 Medical Necessity Reason Pt with a Central, PICC or Fol: Yes The following are medically ne: Central Line Subjective Patient reports: Other (in icu) Review of Systems: Deferred Objective vital signs Vital Sign Date Time Temp Pulse Resp B/P (MAP) Pulse Ox O2 Delivery O2 Flow Rate FiO2 01/25/25 11:00 79 15 107/60 (76) 90 01/25/25 10:00 Nasal Cannula* 2 28 01/25/25 08:00 98.6 98.6 Total Intake and Output 01/24/25 01/24/25 01/25/25 15:00 23:00 07:00 Intake Total 55.316 ml 844.298 ml 788.673 ml Output Total 1 ml Balance 55.316 ml 843.298 ml 788.673 ml medications Current Medications Medications Dose Ordered Sig/Honey Route Start Time Stop Time Status Last Admin Dose Admin Diagnostic Test (Pha) 1 strip Q6HR 01/09/25 06:00 01/25/25 06:13 1 STRIP Insulin Human Regular Q6HR SC 01/09/25 06:00 01/25/25 06:14 6 UNITS Dextrose 50 ml UD PRN IV 01/09/25 00:30 01/18/25 10:40 50 ML Pantoprazole Sodium 40 mg DAILY IV 01/10/25 10:00 01/25/25 09:01 40 MG Ondansetron HCl 4 mg Q8HPRN PRN IV 01/09/25 10:30 01/20/25 19:41 4 MG Acetaminophen 650 mg Q6HP PRN PO 01/09/25 10:30 01/22/25 11:22 650 MG Ferrous Sulfate 325 mg BIDWM PO 01/10/25 18:00 01/25/25 08:58 325 MG Sevelamer HCl 800 mg TIDWM PO 01/10/25 18:00 01/25/25 08:58 800 MG Gabapentin 100 mg TID PO 01/11/25 14:00 01/25/25 06:13 100 MG Emollient Ointment 1 applic PRN PRN TOP 01/14/25 10:30 Linezolid 300 ml @ 150 mls/hr Q12HR@0400,1600 IV 01/14/25 16:00 01/25/25 03:12 150 MLS/HR Albumin Human 100 ml @ 100 mls/hr PRN PRN IV 01/15/25 10:30 01/17/25 18:15 100 MLS/HR Multivit/Ca Carb/ B Cmplx/FA/Prenat 1 tab DAILY PO 01/16/25 10:00 01/25/25 10:00 1 TAB Fluconazole 200 mg DAILY PO 01/17/25 10:15 01/25/25 09:59 200 MG Throat Lozenges 1 carl Q2HP PRN MT 01/17/25 17:30 01/24/25 18:10 1 CARL Amiodarone HCl 400 mg Q12HR PO 01/18/25 22:00 01/25/25 10:00 400 MG Lorazepam 1 mg Q2HP PRN IV 01/19/25 12:00 01/19/25 12:29 1 MG Morphine Sulfate 2 mg Q2HPRN PRN IV 01/19/25 12:00 01/25/25 01:53 2 MG Phenylephrine HCl 80 mg/Sodium Chloride 250 ml @ 7.5 mls/hr Q24H IV 01/19/25 12:00 Hydrocortisone Sodium Succinate 100 mg Q8HR IV 01/19/25 22:00 01/25/25 06:13 100 MG Polyethylene Glycol 17 gm DAILYPRN PRN PO 01/21/25 12:15 01/25/25 09:59 17 GM Sennosides 8.6 mg QHSP PRN PO 01/21/25 12:15 01/24/25 23:56 8.6 MG Norepinephrine Bitartrate 32 mg/ Sodium Chloride 250 ml @ 0.938 mls/ hr Q24H IV 01/21/25 12:15 01/24/25 00:09 2.813 MLS/HR Midodrine 10 mg TID@0600,1200,1800 PO 01/24/25 06:00 01/25/25 06:13 10 MG laboratory and microbiology Laboratory Tests 01/25/25 04:52 Test 01/25/25 04:52 Range/Units Serum Glucose 270 H 74-106 mg/dL Microbiology Date/Time Source Procedure Growth Status 01/17/25 17:30 Blood Blood Culture - Final NO GROWTH AFTER 5 DAYS OF INCUBATION. Complete 01/10/25 12:45 Ascities Fluid Gram Stain - Final Complete 01/10/25 12:45 Ascities Fluid Body Fluid Culture - Final Complete 01/09/25 14:00 Sputum Gram Stain - Final Complete 01/09/25 14:00 Respiratory Culture - Final Presumptive Lisa albicans Complete 01/09/25 05:00 Nose MRSA Screen - Final Complete Problem List/Assessment/Plan Problem List/Assessment/Plan End-stage renal disease on hemodialysis Heart failure with recent pericardial drainage due to recurrent pericardial effusions Refractory ascites due to cirrhosis with frequent paracentesis Diabetes Shock cardiogenic vs septic hyperkalemia VRE bacteremia recs HD tomorrow not tolerating UF Plan discussed with: Other Dietary Evaluation Review Comments: 1) Nepro carb steady 240ml BID (ordered per [facility] protocol) 2) Neprhro-Kaela 1 tab daily 3) Continue current plan of care Expected Outcomes/Goals: To meet >75% estimated needs Fu 3-5 days LARISA MCKEON MD January 25, 2025 11:22
--- NOTE | 2025-01-25 14:57 | DVHPN2 ---
Progress Note Date Seen: January 25, 2025 Resident Creating Document: ROBERT RAHMAN RESIDENT Medical Necessity Reason Pt with a Central, PICC or Fol: Yes The following are medically ne: Central Line Subjective Review of Systems Patient seen and examined at bedside, no new complaints. Objective vital signs Vital Sign Date Time Temp Pulse Resp B/P (MAP) Pulse Ox O2 Delivery O2 Flow Rate FiO2 01/25/25 13:30 16 96 Nasal Cannula* 2 28 01/25/25 13:30 83 97/55 (69) 01/25/25 12:00 97.9 97.9 Total Intake and Output 01/24/25 01/24/25 01/25/25 15:00 23:00 07:00 Intake Total 55.316 ml 844.298 ml 788.673 ml Output Total 1 ml Balance 55.316 ml 843.298 ml 788.673 ml medications Current Medications Medications Dose Ordered Sig/Honey Route Start Time Stop Time Status Last Admin Dose Admin Diagnostic Test (Pha) 1 strip Q6HR 01/09/25 06:00 01/25/25 12:13 Insulin Human Regular Q6HR SC 01/09/25 06:00 01/25/25 12:13 Dextrose 50 ml UD PRN IV 01/09/25 00:30 01/18/25 10:40 Pantoprazole Sodium 40 mg DAILY IV 01/10/25 10:00 01/25/25 09:01 Ondansetron HCl 4 mg Q8HPRN PRN IV 01/09/25 10:30 01/20/25 19:41 Acetaminophen 650 mg Q6HP PRN PO 01/09/25 10:30 01/22/25 11:22 Ferrous Sulfate 325 mg BIDWM PO 01/10/25 18:00 01/25/25 08:58 Sevelamer HCl 800 mg TIDWM PO 01/10/25 18:00 01/25/25 12:14 Gabapentin 100 mg TID PO 01/11/25 14:00 01/25/25 14:40 Emollient Ointment 1 applic PRN PRN TOP 01/14/25 10:30 Linezolid 300 ml @ 150 mls/hr Q12HR@0400,1600 IV 01/14/25 16:00 01/25/25 03:12 Albumin Human 100 ml @ 100 mls/hr PRN PRN IV 01/15/25 10:30 01/17/25 18:15 Multivit/Ca Carb/ B Cmplx/FA/Prenat 1 tab DAILY PO 01/16/25 10:00 01/25/25 10:00 Fluconazole 200 mg DAILY PO 01/17/25 10:15 01/25/25 09:59 Throat Lozenges 1 moriah Q2HP PRN MT 01/17/25 17:30 01/24/25 18:10 Amiodarone HCl 400 mg Q12HR PO 01/18/25 22:00 01/25/25 10:00 Lorazepam 1 mg Q2HP PRN IV 01/19/25 12:00 01/19/25 12:29 Morphine Sulfate 2 mg Q2HPRN PRN IV 01/19/25 12:00 01/25/25 01:53 Phenylephrine HCl 80 mg/Sodium Chloride 250 ml @ 7.5 mls/hr Q24H IV 01/19/25 12:00 Hydrocortisone Sodium Succinate 100 mg Q8HR IV 01/19/25 22:00 01/25/25 14:40 Polyethylene Glycol 17 gm DAILYPRN PRN PO 01/21/25 12:15 01/25/25 09:59 Sennosides 8.6 mg QHSP PRN PO 01/21/25 12:15 01/24/25 23:56 Norepinephrine Bitartrate 32 mg/ Sodium Chloride 250 ml @ 0.938 mls/ hr Q24H IV 01/21/25 12:15 01/24/25 00:09 Midodrine 10 mg TID@0600,1200,1800 PO 01/24/25 06:00 01/25/25 12:14 Examination GENERAL: Alert and oriented x 3. No acute distress. EYES: PERRL, EOMI. Anicteric. HENT: Moist mucous membranes. LUNGS: Clear to auscultation bilaterally. CARDIOVASCULAR: Regular rate and rhythm. ABDOMEN: Ascites, large distended abdomen. EXTREMITIES: No edema. NEUROLOGIC: No focal neurological deficits. SKIN: Mottling to bilateral lower extremities. Bilateral feet cool to touch. laboratory and microbiology Laboratory Tests 01/25/25 04:52 Test 01/25/25 04:52 Range/Units Serum Glucose 270 H 74-106 mg/dL Microbiology Date/Time Source Procedure Growth Status 01/17/25 17:30 Blood Blood Culture - Final NO GROWTH AFTER 5 DAYS OF INCUBATION. Complete 01/10/25 12:45 Ascities Fluid Gram Stain - Final Complete 01/10/25 12:45 Ascities Fluid Body Fluid Culture - Final Complete 01/09/25 14:00 Sputum Gram Stain - Final Complete 01/09/25 14:00 Respiratory Culture - Final Presumptive Lisa albicans Complete 01/09/25 05:00 Nose MRSA Screen - Final Complete Problem List/Assessment/Plan Problem List/Assessment/Plan Assessment/ Impression Acute hypoxemic respiratory failure Liver cirrhosis ESRD on HD Ascites Severe tricuspid regurgitation Plan: Events Low oxygen requirements On 2 liters nasal cannula remains On pressors for hemodynamic support Levophed as needed stress dose steroids ?adrenal insufficiency events s/p paracentesis Labs and imaging reviewed Supplemental oxygen Titrate to maintain sats 90% or above Incentive spirometry Aspiration precautions Continue antibiotics Bronchodilators Monitor renal function HD as per nephrology Management deferred Monitor electrolytes Supplement as needed Patient is undergoing hemodialysis today, Case discussed with Dr. Neri Plan discussed with: Patient Dietary Evaluation Review Comments: 1) Nepro carb steady 240ml BID (ordered per [facility] protocol) 2) Neprhro-Kaela 1 tab daily 3) Continue current plan of care Expected Outcomes/Goals: To meet >75% estimated needs Fu 3-5 days Date of Service: January 25, 2025 Billing Provider: MARIA FERNANDA NERI MD Common Visit Codes: NOT BILLABLE ROBERT RAHMAN RESIDENT January 25, 2025 14:57 MARIA FERNANDA NERI MD January 26, 2025 14:00
--- NOTE | 2025-01-25 15:06 | DVHPN2 ---
Assessment/Plan Assessment/Plan ICU notes covering in HFNC 30/40, dusky fingertips RUE>LUE, LE equal, pulse RLE > LLE. possible pressor related. Fem TLC on but pt likely vasculopath, will attempt new LTC tomorrow. new echo ordered, concerned for pulm HTN (prior echo 12/18 with torrential TR, echo 01/18 no color done, loud late peaking murmur in physical. seen today during rounds, on NC. maintain spo2 >89. on pressors. discussed code status >30 mints. para today. for ltach physical exam on [facility] AOx3 MMM coarse breath sounds s1 s2 RRR systolic murmur abdomen distended LE edema dusky hand, feet labs ekg imaging reviewed assessment and plan Acute hepatic/metabolic/toxic encephalopathy Acute hypoxic respiratory failure due to presumptive Lisa albicans pneumonia, and acute on chronic Septic shock due to Enterococcus faecium - VRE bacteremia and presumptive Lisa albicans pneumonia Decompensated liver cirrhosis with refractory ascites status post recurrent paracentesis (last this morning of almost 4 liters), thrombocytopenia, and coagulopathy ACS ruled out Diabetes mellitus type 2 Blindness Hearing loss Atrial tachycardia, now in junctional rhythm. Type 2 UT, demand ischemia Acute on chronic HFpEF with right-sided heart failure; with chronic pericardial effusion status post recurrent pericardiocentesis History of atrial fibrillation Normocytic anemia; most likely inflammatory End-stage renal disease on hemodialysis pulmonary edema vs ARDS r/o , MR r/o pHTN slow transit constipation c/w HFNC, maintain spo2 >89% repeat echo might benefit from swans vs GOC discussion c/w rest of management c/w linezolid enema - have BM diet cardiac dvt ppx on AC gi ppx protonix chemical code, HD, para okay DNR DNI condition critical prognosis grim 45 minutes critical care time Plan discussed with: Patient My Orders Orders - BINTA VELAZQUEZ MD Procedure Category Date Status Time Code Status CODE 01/25/25 Transmitted 13:44 Date of Service: January 25, 2025 Billing Provider: BINTA VELAZQUEZ MD Common Visit Codes: [id number] CARE 30-74 MIN BINTA VELAZQUEZ MD January 25, 2025 15:06
--- NOTE | 2025-01-25 18:47 | DVHPN2 ---
Progress Note - Dictate Date Seen: January 25, 2025 Medical Necessity Reason Pt with a Central, PICC or Fol: Yes The following are medically ne: Central Line Subjective Patient was seen and evaluated in follow up in the ICU. Patient is on 2 LPM NC. Patient remains on pressors at this time. Patient remains with intermittent confusion. HGB 9.5, HCT 29.5, DENTAL SECRETARY 2.15, GLUC 270. vital signs Vital Sign Date Time Temp Pulse Resp B/P (MAP) Pulse Ox O2 Delivery O2 Flow Rate FiO2 01/25/25 11:00 79 15 107/60 (76) 90 01/25/25 10:00 Nasal Cannula* 2 28 01/25/25 08:00 98.6 98.6 Total Intake and Output 01/24/25 01/24/25 01/25/25 15:00 23:00 07:00 Intake Total 55.316 ml 844.298 ml 788.673 ml Output Total 1 ml Balance 55.316 ml 843.298 ml 788.673 ml medications Current Medications Medications Dose Ordered Sig/Honey Route Start Time Stop Time Status Last Admin Dose Admin Diagnostic Test (Pha) 1 strip Q6HR 01/09/25 06:00 01/25/25 12:13 1 STRIP Insulin Human Regular Q6HR SC 01/09/25 06:00 01/25/25 12:13 3 UNITS Dextrose 50 ml UD PRN IV 01/09/25 00:30 01/18/25 10:40 50 ML Pantoprazole Sodium 40 mg DAILY IV 01/10/25 10:00 01/25/25 09:01 40 MG Ondansetron HCl 4 mg Q8HPRN PRN IV 01/09/25 10:30 01/20/25 19:41 4 MG Acetaminophen 650 mg Q6HP PRN PO 01/09/25 10:30 01/22/25 11:22 650 MG Ferrous Sulfate 325 mg BIDWM PO 01/10/25 18:00 01/25/25 08:58 325 MG Sevelamer HCl 800 mg TIDWM PO 01/10/25 18:00 01/25/25 08:58 800 MG Gabapentin 100 mg TID PO 01/11/25 14:00 01/25/25 06:13 100 MG Emollient Ointment 1 applic PRN PRN TOP 01/14/25 10:30 Linezolid 300 ml @ 150 mls/hr Q12HR@0400,1600 IV 01/14/25 16:00 01/25/25 03:12 150 MLS/HR Albumin Human 100 ml @ 100 mls/hr PRN PRN IV 01/15/25 10:30 01/17/25 18:15 100 MLS/HR Multivit/Ca Carb/ B Cmplx/FA/Prenat 1 tab DAILY PO 01/16/25 10:00 01/25/25 10:00 1 TAB Fluconazole 200 mg DAILY PO 01/17/25 10:15 01/25/25 09:59 200 MG Throat Lozenges 1 carl Q2HP PRN MT 01/17/25 17:30 01/24/25 18:10 1 CARL Amiodarone HCl 400 mg Q12HR PO 01/18/25 22:00 01/25/25 10:00 400 MG Lorazepam 1 mg Q2HP PRN IV 01/19/25 12:00 01/19/25 12:29 1 MG Morphine Sulfate 2 mg Q2HPRN PRN IV 01/19/25 12:00 01/25/25 01:53 2 MG Phenylephrine HCl 80 mg/Sodium Chloride 250 ml @ 7.5 mls/hr Q24H IV 01/19/25 12:00 Hydrocortisone Sodium Succinate 100 mg Q8HR IV 01/19/25 22:00 01/25/25 06:13 100 MG Polyethylene Glycol 17 gm DAILYPRN PRN PO 01/21/25 12:15 01/25/25 09:59 17 GM Sennosides 8.6 mg QHSP PRN PO 01/21/25 12:15 01/24/25 23:56 8.6 MG Norepinephrine Bitartrate 32 mg/ Sodium Chloride 250 ml @ 0.938 mls/ hr Q24H IV 01/21/25 12:15 01/24/25 00:09 2.813 MLS/HR Midodrine 10 mg TID@0600,1200,1800 PO 01/24/25 06:00 01/25/25 06:13 10 MG objective GENERAL: Alert and oriented x 3. No acute distress. EYES: PERRL, EOMI. Anicteric. HENT: Moist mucous membranes. LUNGS: Clear to auscultation bilaterally. CARDIOVASCULAR: Regular rate and rhythm. Systolic murmur. ABDOMEN: Ascites, large distended abdomen. EXTREMITIES: No edema. NEUROLOGIC: No focal neurological deficits. SKIN: Mottling to bilateral lower extremities. Bilateral feet cool to touch. laboratory and microbiology Laboratory Tests 01/25/25 04:52 Test 01/25/25 04:52 Range/Units Serum Glucose 270 H 74-106 mg/dL Problem List Atrial tachycardia, now in junctional rhythm. NSTEMI, likely type II. Chronic HFpEF with right-sided heart failure, NYHA class III. History of atrial fibrillation (on amiodarone and Eliquis). Chronic pericardial effusion. History of hypertension. Hyperlipidemia. Decompensated liver cirrhosis with refractory ascites. Ascites. Type 2 diabetes mellitus. End-stage renal disease on hemodialysis. Acute hepatic/metabolic/toxic encephalopathy. Acute hypoxic respiratory failure. Septic shock due to Enterococcus faecium. Blindness. Hearing loss. Assessment/Plan Continued all current supportive medical care. Amiodarone. GI prophylactics. IV antibiotics as ordered. Morphine for pain management. Vasopressors for hemodynamic support. Additional plan as per the hospital course. Critical care time of 45 minutes provided to include time spent evaluation of patient at bedside, when appropriate patient/family education for diagnosis, treatment plan, review of pertinent medical information and discussion of care with specialty providers and PCP. Dietary Evaluation Review Comments: 1) Nepro carb steady 240ml BID (ordered per ONS protocol) 2) Neprhro-Kaela 1 tab daily 3) Continue current plan of care Expected Outcomes/Goals: To meet >75% estimated needs Fu 3-5 days Plan discussed with: Patient SOREN MARTINEZ MD January 25, 2025 12:23
[2025-01-26] VITALS (92 sets, daily range): BP systolic 75–120; BP diastolic 33–68; PULSE 66–88; RESP 6–26; TEMP 96.9–98.6; O2SAT 83–100
[2025-01-26 04:56] LABS: Hematocrit 26.4 % (36.0-46.0); Hemoglobin 8.6 g/dL (12.2-16.2); Red Blood Cells 2.65 10^6/uL (4.0-5.20); Red Cell Distribution Width 16.4 % (11.8-14.3)
[2025-01-26 04:59] LABS: Mean Corpuscular Hemoglobin 32.5 pg (28.0-32.0); Mean Corpuscular Hgb Conc. 32.7 g/dL (32.0-36.0); Mean Corpuscular Volume 99.4 fL (80.0-100.0); Platelet Count (auto) 51 10^3/uL (140-450)
[2025-01-26 05:01] LABS: Band Neutrophils % (manual) 0; Basophils % (manual) 0 (0.0-2.0); Blast Cells 0; Eosinophils % (manual) 0 (0-7); Metamyelocytes % 0; Myelocytes % 0; Promyelocytes % 0; Reactive Lymphocytes 0
[2025-01-26 05:08] LABS: Anion Gap 16 (5-15); Carbon Dioxide 21 mmol/L (20-31)
[2025-01-26 05:13] LABS: BUN/Creatinine Ratio 12.8 (10.0-20.0)
[2025-01-26 05:14] LABS: Magnesium 2.1 mg/dL (1.6-2.6)
[2025-01-26 05:16] LABS: Blood Urea Nitrogen 33 mg/dL (9-23); Chloride 97 mmol/L (98-107); Glucose 227 mg/dL (74-106); Phosphorus 3.4 mg/dL (2.4-5.1); Sodium 134 mmol/L (136-145)
[2025-01-26 05:58] LABS: Large Platelets FEW; Lymphocytes % (manual) 3 (10.0-50.0); Monocytes % (manual) 2 (0-12); Platelet Estimate Decrea; Stomatocytes Many; Target Cell MODERATE
[2025-01-26] MEDS: SODIUM CHL 0.9% 1000 ML BAG XX ONE (11:40)
[2025-01-26] MEDS: ALBUMIN 25% 100 ML IV PRN (11:45)
[2025-01-26 12:38] LABS: Body Fluid Red Blood Cells 917 CUMM (0-2000); Body Fluid White Blood Cells 222 CUMM (0-200)
[2025-01-26] MEDS: ALBUMIN 25% 100 ML, ALBUMIN 25% 100 ML IV PRN (13:48)
--- NOTE | 2025-01-26 14:01 | DVHPN2 ---
Progress Note - Dictate Date Seen: January 26, 2025 Medical Necessity Reason Pt with a Central, PICC or Fol: Yes The following are medically ne: Central Line vital signs Vital Sign Date Time Temp Pulse Resp B/P (MAP) Pulse Ox O2 Delivery O2 Flow Rate FiO2 01/26/25 12:00 70 01/26/25 12:00 14 99 Nasal Cannula* 2 28 01/26/25 11:30 93/50 (64) 01/26/25 08:00 97.9 97.9 Total Intake and Output 01/25/25 01/25/25 01/26/25 15:00 23:00 07:00 Intake Total 31.875 ml 903.362 ml 480.00 ml Output Total 0 ml 150 ml Balance 31.875 ml 903.362 ml 330.00 ml medications Current Medications Medications Dose Ordered Sig/Honey Route Start Time Stop Time Status Last Admin Dose Admin Diagnostic Test (Pha) 1 strip Q6HR 01/09/25 06:00 01/26/25 12:18 1 STRIP Insulin Human Regular Q6HR SC 01/09/25 06:00 01/26/25 05:03 4 UNITS Dextrose 50 ml UD PRN IV 01/09/25 00:30 01/18/25 10:40 50 ML Pantoprazole Sodium 40 mg DAILY IV 01/10/25 10:00 01/26/25 11:12 40 MG Ondansetron HCl 4 mg Q8HPRN PRN IV 01/09/25 10:30 01/26/25 05:01 4 MG Acetaminophen 650 mg Q6HP PRN PO 01/09/25 10:30 01/22/25 11:22 650 MG Ferrous Sulfate 325 mg BIDWM PO 01/10/25 18:00 01/26/25 09:04 325 MG Sevelamer HCl 800 mg TIDWM PO 01/10/25 18:00 01/25/25 18:41 800 MG Gabapentin 100 mg TID PO 01/11/25 14:00 01/26/25 05:01 100 MG Emollient Ointment 1 applic PRN PRN TOP 01/14/25 10:30 Albumin Human 100 ml @ 100 mls/hr PRN PRN IV 01/15/25 10:30 01/17/25 18:15 100 MLS/HR Multivit/Ca Carb/ B Cmplx/FA/Prenat 1 tab DAILY PO 01/16/25 10:00 01/25/25 10:00 1 TAB Fluconazole 200 mg DAILY PO 01/17/25 10:15 01/26/25 11:12 200 MG Throat Lozenges 1 carl Q2HP PRN MT 01/17/25 17:30 01/24/25 18:10 1 CARL Amiodarone HCl 400 mg Q12HR PO 01/18/25 22:00 01/26/25 11:12 400 MG Lorazepam 1 mg Q2HP PRN IV 01/19/25 12:00 01/19/25 12:29 1 MG Morphine Sulfate 2 mg Q2HPRN PRN IV 01/19/25 12:00 01/25/25 01:53 2 MG Phenylephrine HCl 80 mg/Sodium Chloride 250 ml @ 7.5 mls/hr Q24H IV 01/19/25 12:00 Hydrocortisone Sodium Succinate 100 mg Q8HR IV 01/19/25 22:00 01/26/25 05:01 100 MG Polyethylene Glycol 17 gm DAILYPRN PRN PO 01/21/25 12:15 01/25/25 09:59 17 GM Sennosides 8.6 mg QHSP PRN PO 01/21/25 12:15 01/24/25 23:56 8.6 MG Norepinephrine Bitartrate 32 mg/ Sodium Chloride 250 ml @ 0.938 mls/ hr Q24H IV 01/21/25 12:15 01/26/25 05:05 3.75 MLS/HR Midodrine 10 mg TID@0600,1200,1800 PO 01/24/25 06:00 01/26/25 12:11 10 MG laboratory and microbiology Laboratory Tests 01/26/25 04:27 Test 01/26/25 04:27 Range/Units Serum Glucose 227 H 74-106 mg/dL Assessment/Plan Impression Acute hypoxemic respiratory failure Liver cirrhosis ESRD on HD Ascites Patient seen and examined Events Low oxygen requirements On 2 liters nasal cannula On pressors for hemodynamic support Labs and imaging reviewed Management Supplemental oxygen Titrate to maintain sats 90% or above Incentive spirometry Aspiration precautions Continue antibiotics Bronchodilators stress dose steroids ?adrenal insufficiency Monitor renal function HD as per nephrology Management deferred Monitor electrolytes Supplement as needed Proceed to thoracentesis DVT prophylaxis Critical care time 35 minutes Dietary Evaluation Review Comments: 1) Nepro carb steady 240ml BID (ordered per ONS protocol) 2) Neprhro-Kaela 1 tab daily 3) Continue current plan of care Expected Outcomes/Goals: To meet >75% estimated needs Fu 3-5 days Plan discussed with: Patient MARIA FERNANDA CHAMBERS MD January 26, 2025 14:01
--- NOTE | 2025-01-26 14:29 | DVHPN2 ---
Reviewed: Care Plan, H&P, Labs, Medications, Previous Orders, Radiology, Other (Consultations) Changes from previous H/P or p: No Changes Objective Vitals Vital Signs Date Time Temp Pulse Resp B/P (MAP) Pulse Ox O2 Delivery O2 Flow Rate FiO2 01/26/25 12:00 70 01/26/25 12:00 14 99 Nasal Cannula* 2 28 01/26/25 11:30 93/50 (64) 01/26/25 08:00 97.9 97.9 Intake/Output Intake and Output 01/26/25 07:00 Intake Total 1415.237 ml Output Total 150 ml Balance 1265.237 ml Intake Oral 1250 ml IV Total 165.237 ml Output Urine Total 0 ml Emesis 150 ml # Bowel Movements 2 General Appearance: Alert, Oriented X3, Cooperative, moderate distress HEENT: Atraumatic, Other (Blind) Lungs: Other (Decreased air entry bilateral) Cardiovascular: Normal S1, Normal S2, Other (Tracking failure) Abdomen: Normal bowel sounds, Soft, No tenderness, Other (Resolved ascites after paracentesis of almost 4 liters) Extremities: Other (Left upper extremity AV fistula with good bruit and thrill; dusky extremities) Neuro: Normal speech, Cranial nerves 3-12 NL, Other (Reviewed) Psych/Mental Status: Mental status NL, Mood NL Medications Current Medications Medications Dose Ordered Sig/Honey Route Start Time Stop Time Status Last Admin Dose Admin Diagnostic Test (Pha) 1 strip Q6HR 01/09/25 06:00 01/26/25 12:18 1 STRIP Insulin Human Regular Q6HR SC 01/09/25 06:00 01/26/25 05:03 4 UNITS Dextrose 50 ml UD PRN IV 01/09/25 00:30 01/18/25 10:40 50 ML Pantoprazole Sodium 40 mg DAILY IV 01/10/25 10:00 01/26/25 11:12 40 MG Ondansetron HCl 4 mg Q8HPRN PRN IV 01/09/25 10:30 01/26/25 05:01 4 MG Acetaminophen 650 mg Q6HP PRN PO 01/09/25 10:30 01/22/25 11:22 650 MG Ferrous Sulfate 325 mg BIDWM PO 01/10/25 18:00 01/26/25 09:04 325 MG Sevelamer HCl 800 mg TIDWM PO 01/10/25 18:00 01/25/25 18:41 800 MG Gabapentin 100 mg TID PO 01/11/25 14:00 01/26/25 05:01 100 MG Emollient Ointment 1 applic PRN PRN TOP 01/14/25 10:30 Albumin Human 100 ml @ 100 mls/hr PRN PRN IV 01/15/25 10:30 01/17/25 18:15 100 MLS/HR Multivit/Ca Carb/ B Cmplx/FA/Prenat 1 tab DAILY PO 01/16/25 10:00 01/25/25 10:00 1 TAB Fluconazole 200 mg DAILY PO 01/17/25 10:15 01/26/25 11:12 200 MG Throat Lozenges 1 carl Q2HP PRN MT 01/17/25 17:30 01/24/25 18:10 1 CARL Amiodarone HCl 400 mg Q12HR PO 01/18/25 22:00 01/26/25 11:12 400 MG Lorazepam 1 mg Q2HP PRN IV 01/19/25 12:00 01/19/25 12:29 1 MG Morphine Sulfate 2 mg Q2HPRN PRN IV 01/19/25 12:00 01/25/25 01:53 2 MG Phenylephrine HCl 80 mg/Sodium Chloride 250 ml @ 7.5 mls/hr Q24H IV 01/19/25 12:00 Hydrocortisone Sodium Succinate 100 mg Q8HR IV 01/19/25 22:00 01/26/25 05:01 100 MG Polyethylene Glycol 17 gm DAILYPRN PRN PO 01/21/25 12:15 01/25/25 09:59 17 GM Sennosides 8.6 mg QHSP PRN PO 01/21/25 12:15 01/24/25 23:56 8.6 MG Norepinephrine Bitartrate 32 mg/ Sodium Chloride 250 ml @ 0.938 mls/ hr Q24H IV 01/21/25 12:15 01/26/25 05:05 3.75 MLS/HR Midodrine 10 mg TID@0600,1200,1800 PO 01/24/25 06:00 01/26/25 12:11 10 MG Laboratory Results Laboratory Tests 01/26/25 04:27 Chemistry Test 01/26/25 04:27 Calcium Level 9.0 mg/dL (8.7-10.4) Magnesium Level 2.1 mg/dL (1.6-2.6) Phosphorus Level 3.4 mg/dL (2.4-5.1) Microbiology Microbiology Date/Time Source Procedure Growth Status 01/17/25 17:30 Blood Blood Culture - Final NO GROWTH AFTER 5 DAYS OF INCUBATION. Complete 01/10/25 12:45 Ascities Fluid Gram Stain - Final Complete 01/10/25 12:45 Ascities Fluid Body Fluid Culture - Final Complete 01/09/25 14:00 Sputum Gram Stain - Final Complete 01/09/25 14:00 Respiratory Culture - Final Presumptive Lisa albicans Complete 01/09/25 05:00 Nose MRSA Screen - Final Complete Labs and/or images reviewed: Labs reviewed by me, Image(s) reviewed by me Assessment/Plan Assessment/Plan Covering for Dr. Hurst Acute hepatic/metabolic/toxic encephalopathy Acute hypoxic respiratory failure due to presumptive Lisa albicans pneumonia, and acute on chronic Septic shock due to Enterococcus faecium - VRE bacteremia and presumptive Lisa albicans pneumonia Decompensated liver cirrhosis with refractory ascites status post recurrent paracentesis (last this morning of almost 4 liters), thrombocytopenia, and coagulopathy ACS ruled out Diabetes mellitus type 2 Blindness Hearing loss Atrial tachycardia, now in junctional rhythm. Type 2 SC, demand ischemia Acute on chronic HFpEF with right-sided heart failure; with chronic pericardial effusion status post recurrent pericardiocentesis History of atrial fibrillation Normocytic anemia; most likely inflammatory End-stage renal disease on hemodialysis pulmonary edema vs ARDS Continue current management Time spent 50 minutes Patient is chemical code Prognosis poor Plan discussed with: Patient Date of Service: January 26, 2025 Billing Provider: ABDOULAYE CAMERON MD Common Visit Codes: [id number] CARE 30-74 MIN ABDOULAYE CAMERON MD January 26, 2025 14:29
--- NOTE | 2025-01-26 15:03 | DVHPN2 ---
Progress Note Date Seen: January 26, 2025 Medical Necessity Reason Pt with a Central, PICC or Fol: Yes The following are medically ne: Central Line Subjective Patient reports: No new complaints Review of Systems: Deferred Objective vital signs Vital Sign Date Time Temp Pulse Resp B/P (MAP) Pulse Ox O2 Delivery O2 Flow Rate FiO2 01/26/25 12:00 70 01/26/25 12:00 14 99 Nasal Cannula* 2 28 01/26/25 11:30 93/50 (64) 01/26/25 08:00 97.9 97.9 Total Intake and Output 01/25/25 01/25/25 01/26/25 15:00 23:00 07:00 Intake Total 31.875 ml 903.362 ml 480.00 ml Output Total 0 ml 150 ml Balance 31.875 ml 903.362 ml 330.00 ml medications Current Medications Medications Dose Ordered Sig/Honey Route Start Time Stop Time Status Last Admin Dose Admin Diagnostic Test (Pha) 1 strip Q6HR 01/09/25 06:00 01/26/25 12:18 1 STRIP Insulin Human Regular Q6HR SC 01/09/25 06:00 01/26/25 05:03 4 UNITS Dextrose 50 ml UD PRN IV 01/09/25 00:30 01/18/25 10:40 50 ML Pantoprazole Sodium 40 mg DAILY IV 01/10/25 10:00 01/26/25 11:12 40 MG Ondansetron HCl 4 mg Q8HPRN PRN IV 01/09/25 10:30 01/26/25 05:01 4 MG Acetaminophen 650 mg Q6HP PRN PO 01/09/25 10:30 01/22/25 11:22 650 MG Ferrous Sulfate 325 mg BIDWM PO 01/10/25 18:00 01/26/25 09:04 325 MG Sevelamer HCl 800 mg TIDWM PO 01/10/25 18:00 01/25/25 18:41 800 MG Gabapentin 100 mg TID PO 01/11/25 14:00 01/26/25 05:01 100 MG Emollient Ointment 1 applic PRN PRN TOP 01/14/25 10:30 Albumin Human 100 ml @ 100 mls/hr PRN PRN IV 01/15/25 10:30 01/17/25 18:15 100 MLS/HR Multivit/Ca Carb/ B Cmplx/FA/Prenat 1 tab DAILY PO 01/16/25 10:00 01/25/25 10:00 1 TAB Fluconazole 200 mg DAILY PO 01/17/25 10:15 01/26/25 11:12 200 MG Throat Lozenges 1 carl Q2HP PRN MT 01/17/25 17:30 01/24/25 18:10 1 CARL Amiodarone HCl 400 mg Q12HR PO 01/18/25 22:00 01/26/25 11:12 400 MG Lorazepam 1 mg Q2HP PRN IV 01/19/25 12:00 01/19/25 12:29 1 MG Morphine Sulfate 2 mg Q2HPRN PRN IV 01/19/25 12:00 01/25/25 01:53 2 MG Phenylephrine HCl 80 mg/Sodium Chloride 250 ml @ 7.5 mls/hr Q24H IV 01/19/25 12:00 Hydrocortisone Sodium Succinate 100 mg Q8HR IV 01/19/25 22:00 01/26/25 05:01 100 MG Polyethylene Glycol 17 gm DAILYPRN PRN PO 01/21/25 12:15 01/25/25 09:59 17 GM Sennosides 8.6 mg QHSP PRN PO 01/21/25 12:15 01/24/25 23:56 8.6 MG Norepinephrine Bitartrate 32 mg/ Sodium Chloride 250 ml @ 0.938 mls/ hr Q24H IV 01/21/25 12:15 01/26/25 05:05 3.75 MLS/HR Midodrine 10 mg TID@0600,1200,1800 PO 01/24/25 06:00 01/26/25 12:11 10 MG Examination: GENERAL:Abnormal, LUNGS:Abnormal, MSK:Abnormal, NEURO:Abnormal laboratory and microbiology Laboratory Tests 01/26/25 04:27 Test 01/26/25 04:27 Range/Units Serum Glucose 227 H 74-106 mg/dL Microbiology Date/Time Source Procedure Growth Status 01/17/25 17:30 Blood Blood Culture - Final NO GROWTH AFTER 5 DAYS OF INCUBATION. Complete 01/10/25 12:45 Ascities Fluid Gram Stain - Final Complete 01/10/25 12:45 Ascities Fluid Body Fluid Culture - Final Complete 01/09/25 14:00 Sputum Gram Stain - Final Complete 01/09/25 14:00 Respiratory Culture - Final Presumptive Lisa albicans Complete 01/09/25 05:00 Nose MRSA Screen - Final Complete Problem List/Assessment/Plan Problem List/Assessment/Plan End-stage renal disease on hemodialysis Heart failure with recent pericardial drainage due to recurrent pericardial effusions Refractory ascites due to cirrhosis with frequent paracentesis Diabetes Shock cardiogenic vs septic hyperkalemia VRE bacteremia recs HD today on levophed UF as tolerated Plan discussed with: Other My Orders My Orders Orders - LARISA MCKEON MD Procedure Category Date Status Time Hemodialysis Orders ORDERS 01/26/25 Transmitted 09:23 Dialysis Nursing REGINALD 01/26/25 In Process Message 09:46 Document Fluid Input REGINALD 01/26/25 In Process And Outpu 09:46 Dietary Evaluation Review Comments: 1) Nepro carb steady 240ml BID (ordered per [facility] protocol) 2) Neprhro-Kaela 1 tab daily 3) Continue current plan of care Expected Outcomes/Goals: To meet >75% estimated needs Fu 3-5 days LARISA MCKEON MD January 26, 2025 15:03
--- NOTE | 2025-01-26 15:19 | DVHPN2 ---
Progress Note - Dictate Date Seen: January 26, 2025 Medical Necessity Reason Pt with a Central, PICC or Fol: Yes The following are medically ne: Central Line Subjective Patient was seen and evaluated in follow up in the ICU. Patient is on 2 LPM NC. Patient underwent paracentesis with 4.5 L of serous fluid removed. HGB 8.6, HCT 26.4, BUN 33, FICTION WRITER 2.57, GLUC 245. vital signs Vital Sign Date Time Temp Pulse Resp B/P (MAP) Pulse Ox O2 Delivery O2 Flow Rate FiO2 01/26/25 09:30 75 20 93/59 (70) 100 01/26/25 08:00 97.9 97.9 01/26/25 08:00 Nasal Cannula* 2 28 Total Intake and Output 01/25/25 01/25/25 01/26/25 15:00 23:00 07:00 Intake Total 31.875 ml 903.362 ml 480.00 ml Output Total 0 ml 150 ml Balance 31.875 ml 903.362 ml 330.00 ml medications Current Medications Medications Dose Ordered Sig/Honey Route Start Time Stop Time Status Last Admin Dose Admin Diagnostic Test (Pha) 1 strip Q6HR 01/09/25 06:00 01/25/25 23:37 1 STRIP Insulin Human Regular Q6HR SC 01/09/25 06:00 01/26/25 05:03 4 UNITS Dextrose 50 ml UD PRN IV 01/09/25 00:30 01/18/25 10:40 50 ML Pantoprazole Sodium 40 mg DAILY IV 01/10/25 10:00 01/26/25 11:12 40 MG Ondansetron HCl 4 mg Q8HPRN PRN IV 01/09/25 10:30 01/26/25 05:01 4 MG Acetaminophen 650 mg Q6HP PRN PO 01/09/25 10:30 01/22/25 11:22 650 MG Ferrous Sulfate 325 mg BIDWM PO 01/10/25 18:00 01/26/25 09:04 325 MG Sevelamer HCl 800 mg TIDWM PO 01/10/25 18:00 01/25/25 18:41 800 MG Gabapentin 100 mg TID PO 01/11/25 14:00 01/26/25 05:01 100 MG Emollient Ointment 1 applic PRN PRN TOP 01/14/25 10:30 Albumin Human 100 ml @ 100 mls/hr PRN PRN IV 01/15/25 10:30 Hold 01/17/25 18:15 100 MLS/HR Multivit/Ca Carb/ B Cmplx/FA/Prenat 1 tab DAILY PO 01/16/25 10:00 01/25/25 10:00 1 TAB Fluconazole 200 mg DAILY PO 01/17/25 10:15 01/26/25 11:12 200 MG Throat Lozenges 1 carl Q2HP PRN MT 01/17/25 17:30 01/24/25 18:10 1 CARL Amiodarone HCl 400 mg Q12HR PO 01/18/25 22:00 01/26/25 11:12 400 MG Lorazepam 1 mg Q2HP PRN IV 01/19/25 12:00 01/19/25 12:29 1 MG Morphine Sulfate 2 mg Q2HPRN PRN IV 01/19/25 12:00 01/25/25 01:53 2 MG Phenylephrine HCl 80 mg/Sodium Chloride 250 ml @ 7.5 mls/hr Q24H IV 01/19/25 12:00 Hydrocortisone Sodium Succinate 100 mg Q8HR IV 01/19/25 22:00 01/26/25 05:01 100 MG Polyethylene Glycol 17 gm DAILYPRN PRN PO 01/21/25 12:15 01/25/25 09:59 17 GM Sennosides 8.6 mg QHSP PRN PO 01/21/25 12:15 01/24/25 23:56 8.6 MG Norepinephrine Bitartrate 32 mg/ Sodium Chloride 250 ml @ 0.938 mls/ hr Q24H IV 01/21/25 12:15 01/26/25 05:05 3.75 MLS/HR Midodrine 10 mg TID@0600,1200,1800 PO 01/24/25 06:00 01/26/25 05:01 10 MG Albumin Human/ Albumin Human 200 ml @ 100 mls/hr PRN PRN IV 01/26/25 11:00 Albumin Human 100 ml @ 100 mls/hr PRN PRN IV 01/26/25 11:00 objective GENERAL: Alert and oriented x 3. No acute distress. EYES: PERRL, EOMI. Anicteric. HENT: Moist mucous membranes. LUNGS: Clear to auscultation bilaterally. CARDIOVASCULAR: Regular rate and rhythm. Systolic murmur. ABDOMEN: Ascites, large distended abdomen. EXTREMITIES: No edema. NEUROLOGIC: No focal neurological deficits. SKIN: Mottling to bilateral lower extremities. Bilateral feet cool to touch. laboratory and microbiology Laboratory Tests 01/26/25 04:27 Test 01/26/25 04:27 Range/Units Serum Glucose 227 H 74-106 mg/dL Problem List Atrial tachycardia, now in junctional rhythm. NSTEMI, likely type II. Chronic HFpEF with right-sided heart failure, NYHA class III. History of atrial fibrillation (on amiodarone and Eliquis). Chronic pericardial effusion. History of hypertension. Hyperlipidemia. Decompensated liver cirrhosis with refractory ascites. Ascites. Type 2 diabetes mellitus. End-stage renal disease on hemodialysis. Acute hepatic/metabolic/toxic encephalopathy. Acute hypoxic respiratory failure. Septic shock due to Enterococcus faecium. Blindness. Hearing loss. Assessment/Plan Continued all current supportive medical care. Amiodarone. GI prophylactics. IV antibiotics as ordered. Morphine for pain management. Vasopressors for hemodynamic support. Additional plan as per the hospital course. Critical care time of 45 minutes provided to include time spent evaluation of patient at bedside, when appropriate patient/family education for diagnosis, treatment plan, review of pertinent medical information and discussion of care with specialty providers and PCP. Dietary Evaluation Review Comments: 1) Nepro carb steady 240ml BID (ordered per [facility] protocol) 2) Neprhro-Kaela 1 tab daily 3) Continue current plan of care Expected Outcomes/Goals: To meet >75% estimated needs Fu 3-5 days Plan discussed with: Patient SOREN MARTINEZ MD January 26, 2025 12:10
[2025-01-27] VITALS (94 sets, daily range): BP systolic 85–115; BP diastolic 40–69; PULSE 69–86; RESP 7–24; TEMP 97.5–98.3; O2SAT 90–100
[2025-01-27 04:58] LABS: Basophils # (auto) 0 10 ^3/uL (0-0.2); Eosinophils # (auto) 0 10 ^3/uL (0-0.8); Lymphocytes # (auto) 0.2 10 ^3/uL (0.4-5.4); Monocytes # (auto) 0.2 10 ^3/uL (0-1.3); Platelet Count (auto) 52 10^3/uL (140-450)
[2025-01-27 05:00] LABS: Basophils % (auto) 0.3 % (0.0-2.0); Hemoglobin 9.2 g/dL (12.2-16.2); Mean Corpuscular Hemoglobin 32.2 pg (28.0-32.0); Mean Corpuscular Hgb Conc. 32.8 g/dL (32.0-36.0); Mean Corpuscular Volume 98.1 fL (80.0-100.0); Monocytes % (auto) 1.9 % (0.0-12.0); Neutrophils # (auto) 8.9 10 ^3/uL (1.6-8.6); Neutrophils % (auto) 95.8 % (37.0-80.0); Red Blood Cells 2.85 10^6/uL (4.0-5.20); Red Cell Distribution Width 16.2 % (11.8-14.3); White Blood Cell 9.3 10^3/uL (4.4-10.8)
[2025-01-27 05:17] LABS: Alanine Aminotransferase 11 U/L (7-40); Albumin 4.3 g/dL (3.2-4.8); Alkaline Phosphatase 106 U/L (46-116); Anion Gap 14 (5-15); Calcium 10.3 mg/dL (8.7-10.4); Carbon Dioxide 25 mmol/L (20-31); Potassium 4.5 mmol/L (3.5-5.1); Total Protein 5.7 g/dL (5.7-8.2)
[2025-01-27 05:18] LABS: Aspartate Aminotransferase 10 U/L (13-40); Bilirubin, Total 1.7 mg/dL (0.2-1.0); Blood Urea Nitrogen 41 mg/dL (9-23); Chloride 95 mmol/L (98-107); Glucose 142 mg/dL (74-106); Sodium 134 mmol/L (136-145)
--- NOTE | 2025-01-27 10:20 | DVHPN2 ---
Reviewed: Care Plan, H&P, Labs, Medications, Previous Orders, Radiology, Other (Consultations) Changes from previous H/P or p: No Changes Objective Vitals Vital Signs Date Time Temp Pulse Resp B/P (MAP) Pulse Ox O2 Delivery O2 Flow Rate FiO2 01/27/25 10:00 20 97 Nasal Cannula* 2 28 01/27/25 10:00 76 01/27/25 10:00 104/59 (74) 01/27/25 08:00 98.3 98.3 Intake/Output Intake and Output 01/27/25 07:00 Intake Total 1258.291 ml Output Total 0 ml Balance 1258.291 ml Intake Oral 1150 ml IV Total 108.291 ml Output Urine Total 0 ml # Bowel Movements 1 General Appearance: Alert, Oriented X3, Cooperative, moderate distress HEENT: Atraumatic, Other (Blind) Lungs: Other (Decreased air entry bilateral) Cardiovascular: Normal S1, Normal S2, Other (Tracking failure) Abdomen: Normal bowel sounds, Soft, No tenderness, Other (Resolved ascites after paracentesis of almost 4 liters) Extremities: Other (Left upper extremity AV fistula with good bruit and thrill; dusky extremities) Neuro: Normal speech, Cranial nerves 3-12 NL, Other (Reviewed) Psych/Mental Status: Mental status NL, Mood NL Medications Current Medications Medications Dose Ordered Sig/Honey Route Start Time Stop Time Status Last Admin Dose Admin Diagnostic Test (Pha) 1 strip Q6HR 01/09/25 06:00 01/27/25 05:07 1 STRIP Insulin Human Regular Q6HR SC 01/09/25 06:00 01/27/25 05:06 2 UNITS Dextrose 50 ml UD PRN IV 01/09/25 00:30 01/18/25 10:40 50 ML Pantoprazole Sodium 40 mg DAILY IV 01/10/25 10:00 01/26/25 11:12 40 MG Ondansetron HCl 4 mg Q8HPRN PRN IV 01/09/25 10:30 01/26/25 21:45 4 MG Acetaminophen 650 mg Q6HP PRN PO 01/09/25 10:30 01/22/25 11:22 650 MG Ferrous Sulfate 325 mg BIDWM PO 01/10/25 18:00 01/27/25 08:00 325 MG Sevelamer HCl 800 mg TIDWM PO 01/10/25 18:00 5/3/25 17:57 800 MG Gabapentin 100 mg TID PO 01/11/25 14:00 01/27/25 05:04 100 MG Emollient Ointment 1 applic PRN PRN TOP 01/14/25 10:30 Albumin Human 100 ml @ 100 mls/hr PRN PRN IV 01/15/25 10:30 01/17/25 18:15 100 MLS/HR Multivit/Ca Carb/ B Cmplx/FA/Prenat 1 tab DAILY PO 01/16/25 10:00 01/25/25 10:00 1 TAB Fluconazole 200 mg DAILY PO 01/17/25 10:15 01/26/25 11:12 200 MG Throat Lozenges 1 carl Q2HP PRN MT 01/17/25 17:30 01/24/25 18:10 1 CARL Amiodarone HCl 400 mg Q12HR PO 01/18/25 22:00 01/26/25 21:41 400 MG Lorazepam 1 mg Q2HP PRN IV 01/19/25 12:00 01/19/25 12:29 1 MG Morphine Sulfate 2 mg Q2HPRN PRN IV 01/19/25 12:00 01/25/25 01:53 2 MG Phenylephrine HCl 80 mg/Sodium Chloride 250 ml @ 7.5 mls/hr Q24H IV 01/19/25 12:00 Hydrocortisone Sodium Succinate 100 mg Q8HR IV 01/19/25 22:00 01/27/25 05:04 100 MG Polyethylene Glycol 17 gm DAILYPRN PRN PO 01/21/25 12:15 01/25/25 09:59 17 GM Sennosides 8.6 mg QHSP PRN PO 01/21/25 12:15 01/24/25 23:56 8.6 MG Norepinephrine Bitartrate 32 mg/ Sodium Chloride 250 ml @ 0.938 mls/ hr Q24H IV 01/21/25 12:15 01/26/25 05:05 3.75 MLS/HR Midodrine 10 mg TID@0600,1200,1800 PO 01/24/25 06:00 01/27/25 05:04 10 MG Laboratory Results Laboratory Tests 01/27/25 04:34 Chemistry Test 01/27/25 04:34 Albumin 4.3 g/dL (3.2-4.8) Calcium Level 10.3 mg/dL (8.7-10.4) Total Protein 5.7 g/dL (5.7-8.2) LFT Test 01/27/25 04:34 Alanine Aminotransferase (ALT) 11 U/L (7-40) Alkaline Phosphatase 106 U/L (46-116) Aspartate Amino Transferase (AST) 10 U/L (13-40) L Total Bilirubin 1.7 mg/dL (0.2-1.0) H Microbiology Microbiology Date/Time Source Procedure Growth Status 01/17/25 17:30 Blood Blood Culture - Final NO GROWTH AFTER 5 DAYS OF INCUBATION. Complete 01/10/25 12:45 Ascities Fluid Gram Stain - Final Complete 01/10/25 12:45 Ascities Fluid Body Fluid Culture - Final Complete 01/09/25 14:00 Sputum Gram Stain - Final Complete 01/09/25 14:00 Respiratory Culture - Final Presumptive Lisa albicans Complete 01/09/25 05:00 Nose MRSA Screen - Final Complete Labs and/or images reviewed: Labs reviewed by me, Image(s) reviewed by me Assessment/Plan Assessment/Plan Covering for Dr. Hurst Acute hepatic/metabolic/toxic encephalopathy Acute hypoxic respiratory failure due to presumptive Lisa albicans pneumonia, and acute on chronic Septic shock due to Enterococcus faecium - VRE bacteremia and presumptive Lisa albicans pneumonia Decompensated liver cirrhosis with refractory ascites status post recurrent paracentesis (last this morning of almost 4 liters), thrombocytopenia, and coagulopathy ACS ruled out Diabetes mellitus type 2 Blindness Hearing loss Atrial tachycardia, now in junctional rhythm. Type 2 ND, demand ischemia Acute on chronic HFpEF with right-sided heart failure; with chronic pericardial effusion status post recurrent pericardiocentesis History of atrial fibrillation Normocytic anemia; most likely inflammatory End-stage renal disease on hemodialysis pulmonary edema vs ARDS Continue current management Time spent 65 minutes Patient is chemical code Prognosis poor Patient is seen in the [facility] Plan discussed with: Patient Date of Service: January 27, 2025 Billing Provider: ABDOULAYE CAMERON MD Common Visit Codes: [id number] CARE 30-74 MIN ABDOULAYE CAMERON MD January 27, 2025 10:20
--- NOTE | 2025-01-27 14:17 | DVHPN2 ---
Progress Note Date Seen: January 27, 2025 Medical Necessity Reason Pt with a Central, PICC or Fol: Yes The following are medically ne: Central Line Subjective Patient reports: No new complaints (refusng meds) Review of Systems: Deferred Objective vital signs Vital Sign Date Time Temp Pulse Resp B/P (MAP) Pulse Ox O2 Delivery O2 Flow Rate FiO2 01/27/25 12:45 74 10 104/58 (73) 99 01/27/25 12:00 Nasal Cannula* 2 28 01/27/25 12:00 98.3 98.3 Total Intake and Output 01/26/25 01/26/25 01/27/25 15:00 23:00 07:00 Intake Total 28.595 ml 787.504 ml 442.192 ml Output Total 0 ml 0 ml Balance 28.595 ml 787.504 ml 442.192 ml medications Current Medications Medications Dose Ordered Sig/Honey Route Start Time Stop Time Status Last Admin Dose Admin Diagnostic Test (Pha) 1 strip Q6HR 01/09/25 06:00 01/27/25 11:54 1 STRIP Insulin Human Regular Q6HR SC 01/09/25 06:00 01/27/25 12:05 3 UNITS Dextrose 50 ml UD PRN IV 01/09/25 00:30 01/18/25 10:40 50 ML Pantoprazole Sodium 40 mg DAILY IV 01/10/25 10:00 01/27/25 10:28 40 MG Ondansetron HCl 4 mg Q8HPRN PRN IV 01/09/25 10:30 01/26/25 21:45 4 MG Acetaminophen 650 mg Q6HP PRN PO 01/09/25 10:30 01/22/25 11:22 650 MG Ferrous Sulfate 325 mg BIDWM PO 01/10/25 18:00 01/27/25 08:00 325 MG Sevelamer HCl 800 mg TIDWM PO 01/10/25 18:00 01/27/25 11:54 800 MG Gabapentin 100 mg TID PO 01/11/25 14:00 01/27/25 05:04 100 MG Emollient Ointment 1 applic PRN PRN TOP 01/14/25 10:30 Albumin Human 100 ml @ 100 mls/hr PRN PRN IV 01/15/25 10:30 01/17/25 18:15 100 MLS/HR Multivit/Ca Carb/ B Cmplx/FA/Prenat 1 tab DAILY PO 01/16/25 10:00 01/27/25 10:29 1 TAB Fluconazole 200 mg DAILY PO 01/17/25 10:15 01/27/25 10:29 200 MG Throat Lozenges 1 carl Q2HP PRN MT 01/17/25 17:30 01/24/25 18:10 1 CARL Amiodarone HCl 400 mg Q12HR PO 01/18/25 22:00 01/27/25 10:29 400 MG Lorazepam 1 mg Q2HP PRN IV 01/19/25 12:00 01/19/25 12:29 1 MG Morphine Sulfate 2 mg Q2HPRN PRN IV 01/19/25 12:00 01/25/25 01:53 2 MG Phenylephrine HCl 80 mg/Sodium Chloride 250 ml @ 7.5 mls/hr Q24H IV 01/19/25 12:00 Hydrocortisone Sodium Succinate 100 mg Q8HR IV 01/19/25 22:00 01/27/25 05:04 100 MG Polyethylene Glycol 17 gm DAILYPRN PRN PO 01/21/25 12:15 01/25/25 09:59 17 GM Sennosides 8.6 mg QHSP PRN PO 01/21/25 12:15 01/24/25 23:56 8.6 MG Norepinephrine Bitartrate 32 mg/ Sodium Chloride 250 ml @ 0.938 mls/ hr Q24H IV 01/21/25 12:15 01/26/25 05:05 3.75 MLS/HR Midodrine 10 mg TID@0600,1200,1800 PO 01/24/25 06:00 01/27/25 11:53 10 MG Examination: GENERAL:Abnormal, MSK:Abnormal, SKIN:Normal, NEURO:Normal, NEURO:Abnormal laboratory and microbiology Laboratory Tests 01/27/25 04:34 Test 01/27/25 04:34 Range/Units Serum Glucose 142 H 74-106 mg/dL Microbiology Date/Time Source Procedure Growth Status 01/17/25 17:30 Blood Blood Culture - Final NO GROWTH AFTER 5 DAYS OF INCUBATION. Complete 01/10/25 12:45 Ascities Fluid Gram Stain - Final Complete 01/10/25 12:45 Ascities Fluid Body Fluid Culture - Final Complete 01/09/25 14:00 Sputum Gram Stain - Final Complete 01/09/25 14:00 Respiratory Culture - Final Presumptive Lisa albicans Complete 01/09/25 05:00 Nose MRSA Screen - Final Complete Problem List/Assessment/Plan Problem List/Assessment/Plan End-stage renal disease on hemodialysis Heart failure with recent pericardial drainage due to recurrent pericardial effusions Refractory ascites due to cirrhosis with frequent paracentesis Diabetes Shock cardiogenic vs septic hyperkalemia VRE bacteremia recs HD tuesday vs tuesday on levophed UF as tolerated Plan discussed with: Other Dietary Evaluation Review Comments: 1) Nepro carb steady 240ml BID (ordered per [facility] protocol) 2) Neprhro-Kaela 1 tab daily 3) Continue current plan of care Expected Outcomes/Goals: To meet >75% estimated needs Fu 3-5 days LARISA MCKEON MD January 27, 2025 14:17
--- NOTE | 2025-01-27 15:21 | DVHPN2 ---
Progress Note - Dictate Date Seen: January 27, 2025 Medical Necessity Reason Pt with a Central, PICC or Fol: Yes The following are medically ne: Central Line vital signs Vital Sign Date Time Temp Pulse Resp B/P (MAP) Pulse Ox O2 Delivery O2 Flow Rate FiO2 01/27/25 12:45 74 10 104/58 (73) 99 01/27/25 12:00 Nasal Cannula* 2 28 01/27/25 12:00 98.3 98.3 Total Intake and Output 01/26/25 01/26/25 01/27/25 15:00 23:00 07:00 Intake Total 28.595 ml 787.504 ml 442.192 ml Output Total 0 ml 0 ml Balance 28.595 ml 787.504 ml 442.192 ml medications Current Medications Medications Dose Ordered Sig/Honey Route Start Time Stop Time Status Last Admin Dose Admin Diagnostic Test (Pha) 1 strip Q6HR 01/09/25 06:00 01/27/25 11:54 1 STRIP Insulin Human Regular Q6HR SC 01/09/25 06:00 01/27/25 12:05 3 UNITS Dextrose 50 ml UD PRN IV 01/09/25 00:30 01/18/25 10:40 50 ML Pantoprazole Sodium 40 mg DAILY IV 01/10/25 10:00 01/27/25 10:28 40 MG Ondansetron HCl 4 mg Q8HPRN PRN IV 01/09/25 10:30 01/26/25 21:45 4 MG Acetaminophen 650 mg Q6HP PRN PO 01/09/25 10:30 01/22/25 11:22 650 MG Ferrous Sulfate 325 mg BIDWM PO 01/10/25 18:00 01/27/25 08:00 325 MG Sevelamer HCl 800 mg TIDWM PO 01/10/25 18:00 01/27/25 11:54 800 MG Gabapentin 100 mg TID PO 01/11/25 14:00 01/27/25 05:04 100 MG Emollient Ointment 1 applic PRN PRN TOP 01/14/25 10:30 Albumin Human 100 ml @ 100 mls/hr PRN PRN IV 01/15/25 10:30 01/17/25 18:15 100 MLS/HR Multivit/Ca Carb/ B Cmplx/FA/Prenat 1 tab DAILY PO 01/16/25 10:00 01/27/25 10:29 1 TAB Fluconazole 200 mg DAILY PO 01/17/25 10:15 01/27/25 10:29 200 MG Throat Lozenges 1 carl Q2HP PRN MT 01/17/25 17:30 01/24/25 18:10 1 CARL Amiodarone HCl 400 mg Q12HR PO 01/18/25 22:00 01/27/25 10:29 400 MG Lorazepam 1 mg Q2HP PRN IV 01/19/25 12:00 01/19/25 12:29 1 MG Morphine Sulfate 2 mg Q2HPRN PRN IV 01/19/25 12:00 01/25/25 01:53 2 MG Phenylephrine HCl 80 mg/Sodium Chloride 250 ml @ 7.5 mls/hr Q24H IV 01/19/25 12:00 Hydrocortisone Sodium Succinate 100 mg Q8HR IV 01/19/25 22:00 01/27/25 05:04 100 MG Polyethylene Glycol 17 gm DAILYPRN PRN PO 01/21/25 12:15 01/25/25 09:59 17 GM Sennosides 8.6 mg QHSP PRN PO 01/21/25 12:15 01/24/25 23:56 8.6 MG Norepinephrine Bitartrate 32 mg/ Sodium Chloride 250 ml @ 0.938 mls/ hr Q24H IV 01/21/25 12:15 01/26/25 05:05 3.75 MLS/HR Midodrine 10 mg TID@0600,1200,1800 PO 01/24/25 06:00 01/27/25 11:53 10 MG laboratory and microbiology Laboratory Tests 01/27/25 04:34 Test 01/27/25 04:34 Range/Units Serum Glucose 142 H 74-106 mg/dL Assessment/Plan Impression Acute hypoxemic respiratory failure Liver cirrhosis ESRD on HD Ascites Patient seen and examined Events Low oxygen requirements On 2 liters nasal cannula On pressors for hemodynamic support Labs and imaging reviewed Management Supplemental oxygen Titrate to maintain sats 90% or above Incentive spirometry Aspiration precautions Continue antibiotics Bronchodilators Stress dose steroids ?adrenal insufficiency Monitor renal function HD as per nephrology Management deferred Monitor electrolytes Supplement as needed Family contemplating comfort measures DVT prophylaxis Critical care time 35 minutes Dietary Evaluation Review Comments: 1) Nepro carb steady 240ml BID (ordered per [facility]NS protocol) 2) Neprhro-Kaela 1 tab daily 3) Continue current plan of care Expected Outcomes/Goals: To meet >75% estimated needs Fu 3-5 days Plan discussed with: Patient MARIA FERNANDA CHAMBERS MD January 27, 2025 15:21
--- NOTE | 2025-01-27 21:36 | DVHPN2 ---
Progress Note - Dictate Date Seen: January 27, 2025 Medical Necessity Reason Pt with a Central, PICC or Fol: Yes The following are medically ne: Central Line Subjective Patient was seen and evaluated in follow up in the ICU. Patient is on 2 LPM NC. Patient is refusing medications. HGB 9.2, HCT 28, BUN 41, [employer]BI[employer] LEAD 2.92. vital signs Vital Sign Date Time Temp Pulse Resp B/P (MAP) Pulse Ox O2 Delivery O2 Flow Rate FiO2 01/27/25 12:45 74 10 104/58 (73) 99 01/27/25 12:00 Nasal Cannula* 2 28 01/27/25 12:00 98.3 98.3 Total Intake and Output 01/26/25 01/26/25 01/27/25 15:00 23:00 07:00 Intake Total 28.595 ml 787.504 ml 442.192 ml Output Total 0 ml 0 ml Balance 28.595 ml 787.504 ml 442.192 ml medications Current Medications Medications Dose Ordered Sig/Honey Route Start Time Stop Time Status Last Admin Dose Admin Diagnostic Test (Pha) 1 strip Q6HR 01/09/25 06:00 01/27/25 11:54 1 STRIP Insulin Human Regular Q6HR SC 01/09/25 06:00 01/27/25 12:05 3 UNITS Dextrose 50 ml UD PRN IV 01/09/25 00:30 01/18/25 10:40 50 ML Pantoprazole Sodium 40 mg DAILY IV 01/10/25 10:00 01/27/25 10:28 40 MG Ondansetron HCl 4 mg Q8HPRN PRN IV 01/09/25 10:30 01/26/25 21:45 4 MG Acetaminophen 650 mg Q6HP PRN PO 01/09/25 10:30 01/22/25 11:22 650 MG Ferrous Sulfate 325 mg BIDWM PO 01/10/25 18:00 01/27/25 08:00 325 MG Sevelamer HCl 800 mg TIDWM PO 01/10/25 18:00 01/27/25 11:54 800 MG Gabapentin 100 mg TID PO 01/11/25 14:00 01/27/25 05:04 100 MG Emollient Ointment 1 applic PRN PRN TOP 01/14/25 10:30 Albumin Human 100 ml @ 100 mls/hr PRN PRN IV 01/15/25 10:30 01/17/25 18:15 100 MLS/HR Multivit/Ca Carb/ B Cmplx/FA/Prenat 1 tab DAILY PO 01/16/25 10:00 01/27/25 10:29 1 TAB Fluconazole 200 mg DAILY PO 01/17/25 10:15 01/27/25 10:29 200 MG Throat Lozenges 1 carl Q2HP PRN MT 01/17/25 17:30 01/24/25 18:10 1 CARL Amiodarone HCl 400 mg Q12HR PO 01/18/25 22:00 01/27/25 10:29 400 MG Lorazepam 1 mg Q2HP PRN IV 01/19/25 12:00 01/19/25 12:29 1 MG Morphine Sulfate 2 mg Q2HPRN PRN IV 01/19/25 12:00 01/25/25 01:53 2 MG Phenylephrine HCl 80 mg/Sodium Chloride 250 ml @ 7.5 mls/hr Q24H IV 01/19/25 12:00 Hydrocortisone Sodium Succinate 100 mg Q8HR IV 01/19/25 22:00 01/27/25 05:04 100 MG Polyethylene Glycol 17 gm DAILYPRN PRN PO 01/21/25 12:15 01/25/25 09:59 17 GM Sennosides 8.6 mg QHSP PRN PO 01/21/25 12:15 01/24/25 23:56 8.6 MG Norepinephrine Bitartrate 32 mg/ Sodium Chloride 250 ml @ 0.938 mls/ hr Q24H IV 01/21/25 12:15 01/26/25 05:05 3.75 MLS/HR Midodrine 10 mg TID@0600,1200,1800 PO 01/24/25 06:00 01/27/25 11:53 10 MG objective GENERAL: Alert and oriented x 3. No acute distress. EYES: PERRL, EOMI. Anicteric. HENT: Moist mucous membranes. LUNGS: Clear to auscultation bilaterally. CARDIOVASCULAR: Regular rate and rhythm. Systolic murmur. ABDOMEN: Ascites, large distended abdomen. EXTREMITIES: No edema. NEUROLOGIC: No focal neurological deficits. SKIN: Mottling to bilateral lower extremities. Bilateral feet cool to touch. laboratory and microbiology Laboratory Tests 01/27/25 04:34 Test 01/27/25 04:34 Range/Units Serum Glucose 142 H 74-106 mg/dL Problem List Atrial tachycardia, now in junctional rhythm. NSTEMI, likely type II. Chronic HFpEF with right-sided heart failure, NYHA class III. History of atrial fibrillation (on amiodarone and Eliquis). Chronic pericardial effusion. History of hypertension. Hyperlipidemia. Decompensated liver cirrhosis with refractory ascites. Ascites. Type 2 diabetes mellitus. End-stage renal disease on hemodialysis. Acute hepatic/metabolic/toxic encephalopathy. Acute hypoxic respiratory failure. Septic shock due to Enterococcus faecium. Blindness. Hearing loss. Assessment/Plan Continued all current supportive medical care. Amiodarone. GI prophylactics. IV antibiotics as ordered. Morphine for pain management. Vasopressors for hemodynamic support. Additional plan as per the hospital course. Critical care time of 45 minutes provided to include time spent evaluation of patient at bedside, when appropriate patient/family education for diagnosis, treatment plan, review of pertinent medical information and discussion of care with specialty providers and PCP. Dietary Evaluation Review Comments: 1) Nepro carb steady 240ml BID (ordered per [facility] protocol) 2) Neprhro-Kaela 1 tab daily 3) Continue current plan of care Expected Outcomes/Goals: To meet >75% estimated needs Fu 3-5 days Plan discussed with: Patient SOREN MARTINEZ MD January 27, 2025 13:44
[2025-01-28] VITALS (105 sets, daily range): BP systolic 87–123; BP diastolic 39–66; PULSE 69–85; RESP 6–25; TEMP 96.8–98.7; O2SAT 76–100
[2025-01-28 05:32] LABS: Basophils # (auto) 0 10 ^3/uL (0-0.2); Basophils % (auto) 0.3 % (0.0-2.0); Eosinophils # (auto) 0 10 ^3/uL (0-0.8); Hematocrit 27.5 % (36.0-46.0); Hemoglobin 9.1 g/dL (12.2-16.2); Lymphocytes # (auto) 0.1 10 ^3/uL (0.4-5.4); Lymphocytes % (auto) 1.7 % (10.0-50.0); Mean Corpuscular Hemoglobin 32.6 pg (28.0-32.0); Mean Corpuscular Hgb Conc. 33.2 g/dL (32.0-36.0); Mean Corpuscular Volume 98.1 fL (80.0-100.0); Monocytes # (auto) 0.2 10 ^3/uL (0-1.3); Monocytes % (auto) 2.1 % (0.0-12.0); Neutrophils # (auto) 8.4 10 ^3/uL (1.6-8.6); Neutrophils % (auto) 95.9 % (37.0-80.0); Nucleated Red Blood Cells % 0.6 %; Platelet Count (auto) 53 10^3/uL (140-450); Red Cell Distribution Width 15.8 % (11.8-14.3); White Blood Cell 8.7 10^3/uL (4.4-10.8)
[2025-01-28 05:55] LABS: Alanine Aminotransferase 15 U/L (7-40); Albumin 3.9 g/dL (3.2-4.8); Alkaline Phosphatase 109 U/L (46-116); Anion Gap 15 (5-15); Aspartate Aminotransferase 15 U/L (13-40); BUN/Creatinine Ratio 16.4 (10.0-20.0); Calcium 9.8 mg/dL (8.7-10.4); Carbon Dioxide 23 mmol/L (20-31)
[2025-01-28 06:02] LABS: Bilirubin, Total 1.7 mg/dL (0.2-1.0); Blood Urea Nitrogen 61 mg/dL (9-23); Chloride 95 mmol/L (98-107); Glucose 198 mg/dL (74-106); Sodium 133 mmol/L (136-145); Total Protein 5.3 g/dL (5.7-8.2)
[2025-01-28 06:03] LABS: Potassium 5.6 mmol/L (3.5-5.1)
--- NOTE | 2025-01-28 12:20 | DVHPN2 ---
Subjective Patient denies any symptoms Reviewed: Care Plan, H&P, Labs, Medications, Previous Orders, Radiology, Other (Consultations) Changes from previous H/P or p: No Changes General: Per HPI Objective Vitals Vital Signs Date Time Temp Pulse Resp B/P (MAP) Pulse Ox O2 Delivery O2 Flow Rate FiO2 01/28/25 10:00 8 96 Nasal Cannula* 2 28 01/28/25 10:00 75 01/28/25 08:00 98.7 110/61 (77) 98.7 Intake/Output Intake and Output 01/28/25 07:00 Intake Total 1075.546 ml Output Total 0 ml Balance 1075.546 ml Intake Oral 960 ml IV Total 115.546 ml Tube Feeding 0 ml Blood Product 0 ml Intraperitoneal 0 ml Other 0 ml Output Urine Total 0 ml Urine/Stool Mix 0 ml Gastric Drainage Total 0 ml Emesis 0 ml Chest Tube Drainage Total 0 ml Drainage Total 0 ml Blood Draw 0 ml Other 0 ml # Bowel Movements 1 General Appearance: Alert, Oriented X3, Cooperative, moderate distress HEENT: Atraumatic, Other (Blind) Lungs: Other (Decreased air entry bilateral) Cardiovascular: Normal S1, Normal S2, Other (Tracking failure) Abdomen: Normal bowel sounds, Soft, No tenderness, Other (Resolved ascites after paracentesis of almost 4 liters) Extremities: Other (Left upper extremity AV fistula with good bruit and thrill; dusky extremities) Neuro: Normal speech, Cranial nerves 3-12 NL, Other (Reviewed) Skin: Dry, Intact Psych/Mental Status: Mental status NL, Mood NL Medications Current Medications Medications Dose Ordered Sig/Honey Route Start Time Stop Time Status Last Admin Dose Admin Diagnostic Test (Pha) 1 strip Q6HR 01/09/25 06:00 01/28/25 05:44 1 STRIP Insulin Human Regular Q6HR SC 01/09/25 06:00 01/28/25 05:45 2 UNITS Dextrose 50 ml UD PRN IV 01/09/25 00:30 01/18/25 10:40 50 ML Pantoprazole Sodium 40 mg DAILY IV 01/10/25 10:00 01/28/25 09:14 40 MG Ondansetron HCl 4 mg Q8HPRN PRN IV 01/09/25 10:30 01/26/25 21:45 4 MG Acetaminophen 650 mg Q6HP PRN PO 01/09/25 10:30 01/22/25 11:22 650 MG Ferrous Sulfate 325 mg BIDWM PO 01/10/25 18:00 01/28/25 08:59 325 MG Sevelamer HCl 800 mg TIDWM PO 01/10/25 18:00 01/28/25 08:59 800 MG Gabapentin 100 mg TID PO 01/11/25 14:00 01/28/25 05:43 100 MG Emollient Ointment 1 applic PRN PRN TOP 01/14/25 10:30 Albumin Human 100 ml @ 100 mls/hr PRN PRN IV 01/15/25 10:30 01/17/25 18:15 100 MLS/HR Multivit/Ca Carb/ B Cmplx/FA/Prenat 1 tab DAILY PO 01/16/25 10:00 01/28/25 09:14 1 TAB Fluconazole 200 mg DAILY PO 01/17/25 10:15 01/28/25 09:13 200 MG Throat Lozenges 1 carl Q2HP PRN MT 01/17/25 17:30 01/24/25 18:10 1 CARL Amiodarone HCl 400 mg Q12HR PO 01/18/25 22:00 01/28/25 09:11 400 MG Lorazepam 1 mg Q2HP PRN IV 01/19/25 12:00 01/19/25 12:29 1 MG Morphine Sulfate 2 mg Q2HPRN PRN IV 01/19/25 12:00 01/25/25 01:53 2 MG Phenylephrine HCl 80 mg/Sodium Chloride 250 ml @ 7.5 mls/hr Q24H IV 01/19/25 12:00 Hydrocortisone Sodium Succinate 100 mg Q8HR IV 01/19/25 22:00 01/28/25 05:50 100 MG Polyethylene Glycol 17 gm DAILYPRN PRN PO 01/21/25 12:15 01/25/25 09:59 17 GM Sennosides 8.6 mg QHSP PRN PO 01/21/25 12:15 01/24/25 23:56 8.6 MG Norepinephrine Bitartrate 32 mg/ Sodium Chloride 250 ml @ 0.938 mls/ hr Q24H IV 01/21/25 12:15 01/26/25 05:05 3.75 MLS/HR Midodrine 10 mg TID@0600,1200,1800 PO 01/24/25 06:00 01/28/25 05:43 10 MG Laboratory Results Laboratory Tests 01/28/25 04:58 Chemistry Test 01/28/25 04:58 Albumin 3.9 g/dL (3.2-4.8) Calcium Level 9.8 mg/dL (8.7-10.4) Magnesium Level 3.3 mg/dL (1.6-2.6) #H Total Protein 5.3 g/dL (5.7-8.2) L LFT Test 01/28/25 04:58 Alanine Aminotransferase (ALT) 15 U/L (7-40) Alkaline Phosphatase 109 U/L (46-116) Aspartate Amino Transferase (AST) 15 U/L (13-40) Total Bilirubin 1.7 mg/dL (0.2-1.0) H Microbiology Microbiology Date/Time Source Procedure Growth Status 01/17/25 17:30 Blood Blood Culture - Final NO GROWTH AFTER 5 DAYS OF INCUBATION. Complete 01/10/25 12:45 Ascities Fluid Gram Stain - Final Complete 01/10/25 12:45 Ascities Fluid Body Fluid Culture - Final Complete 01/09/25 14:00 Sputum Gram Stain - Final Complete 01/09/25 14:00 Respiratory Culture - Final Presumptive Lisa albicans Complete 01/09/25 05:00 Nose MRSA Screen - Final Complete Labs and/or images reviewed: Labs reviewed by me, Image(s) reviewed by me Assessment/Plan Assessment/Plan Plan: -septic shock with VRE in the blood -cirrhosis with severe ascites -ESRD with hemodialysis -NSTEMI, probably type secondary to recent pericardiocentesis -legally blind -anemia of chronic disease - dyslipidemia -paroxysmal atrial fibrillation -possible infiltration of norepinephrine to right upper extremity with extravasation. Plan: Events: Patient continues to be on vasopressor therapy with norepinephrine at 8 micrograms/minute. Patient on midodrine as well as hydrocortisone without any improvement with the patient was blood pressure. Possible decreased arterial flow to right extremity causing hypotension giving leukocytosis has improved as well as patient having negative blood cultures on redraw. -continue Zyvox -continue vasopressor therapy -pain management: Increase frequency of Cummings, continue gabapentin. -echocardiogram: Results reviewed -nephrology consultation: Recommendations reviewed -repeat labs in a.m. Critical care time spent with patient discussing and formulating plan of care: 40 minutes. This does not include time spent performing procedures. This medical document was created using an electronic medical record system with [employer] dictation system. Although this document has been carefully reviewed, there may still be some phonetic and typographical errors. These areas are purely typographical due to imperfections of the software programs, and do not reflect any compromise in the patient's medical care. Plan discussed with: Patient, Other (RN) Date of Service: January 28, 2025 Billing Provider: PAVEL GUAMAN NP Common Visit Codes: [id number] CARE 30-74 MIN PAVEL GUAMAN NP January 28, 2025 12:20
[2025-01-28] MEDS: SODIUM CHL 0.9% 1000 ML BAG XX ONE (14:00)
[2025-01-28] MEDS: MORPHINE SULFATE INJ 2 MG/ml SYRG IV PRN (14:55)
--- NOTE | 2025-01-28 15:38 | DVH ---
CT abdomen and pelvis without contrast INDICATION: abdominal pain, N/V TECHNIQUE: Serial axial images were performed through the abdomen and pelvis and t. No masses stones or hydronephrosis of the kidneys hen reformatted in the sagittal and coronal plane. All CT scans at [facility] are performed using dose modulation techniques as appropriate to a performed exa m including the following: Automated exposure control was utilized; adjustment of the MA and/or KvP a ccording to patient size; and use of iterative reconstruction technique. FINDINGS: Infiltrates versus congestive changes in the lung bases. Right pleural effusion. Heart siz e is enlarged with small pericardial effusion There is mildly cirrhotic in appearance. Spleen is normal in size. Bilateral renal atrophy. No masses stones or hydronephrosis of the kidneys. Pancreas normal. Adrenals normal. Gallbladder is been removed. Moderately large amount of ascites. No mechanical obstruction of bowel. Umbilical hernia containing fluid In the pelvis there is ascites. No uterine or adnexal masses. IMPRESSION: 1. Pulmonary edema versus bilateral lower lobe infiltrates with right pleural effusion. 2. Moderately large amount of ascites. 3. Mild cirrhosis of the liver. 4. Renal atrophy. Computed Tomographic Radiation Dosimetry Report: Total CTDI vol = 10.32mGy Total DLP = 623.42mGy-cm L ow dose protocols were performed.
--- NOTE | 2025-01-28 15:56 | DVHPN2 ---
Progress Note Date Seen: January 28, 2025 Medical Necessity Reason Pt with a Central, PICC or Fol: Yes The following are medically ne: Central Line Subjective Patient reports: Other (dizziness,abd pain) Review of Systems: Deferred Objective vital signs Vital Sign Date Time Temp Pulse Resp B/P (MAP) Pulse Ox O2 Delivery O2 Flow Rate FiO2 01/28/25 12:00 76 01/28/25 12:00 12 99 Nasal Cannula* 2 28 01/28/25 08:00 98.7 110/61 (77) 98.7 Total Intake and Output 01/27/25 01/27/25 01/28/25 15:00 23:00 07:00 Intake Total 274.454 ml 511.872 ml 289.220 ml Output Total 0 ml 0 ml Balance 274.454 ml 511.872 ml 289.220 ml medications Current Medications Medications Dose Ordered Sig/Honey Route Start Time Stop Time Status Last Admin Dose Admin Diagnostic Test (Pha) 1 strip Q6HR 01/09/25 06:00 01/28/25 12:00 1 STRIP Insulin Human Regular Q6HR SC 01/09/25 06:00 01/28/25 05:45 2 UNITS Dextrose 50 ml UD PRN IV 01/09/25 00:30 01/18/25 10:40 50 ML Pantoprazole Sodium 40 mg DAILY IV 01/10/25 10:00 01/28/25 09:14 40 MG Ondansetron HCl 4 mg Q8HPRN PRN IV 01/09/25 10:30 01/28/25 13:06 4 MG Acetaminophen 650 mg Q6HP PRN PO 01/09/25 10:30 01/22/25 11:22 650 MG Ferrous Sulfate 325 mg BIDWM PO 01/10/25 18:00 01/28/25 08:59 325 MG Sevelamer HCl 800 mg TIDWM PO 01/10/25 18:00 01/28/25 08:59 800 MG Gabapentin 100 mg TID PO 01/11/25 14:00 01/28/25 05:43 100 MG Emollient Ointment 1 applic PRN PRN TOP 01/14/25 10:30 Albumin Human 100 ml @ 100 mls/hr PRN PRN IV 01/15/25 10:30 01/17/25 18:15 100 MLS/HR Multivit/Ca Carb/ B Cmplx/FA/Prenat 1 tab DAILY PO 01/16/25 10:00 01/28/25 09:14 1 TAB Throat Lozenges 1 carl Q2HP PRN MT 01/17/25 17:30 01/24/25 18:10 1 CARL Amiodarone HCl 400 mg Q12HR PO 01/18/25 22:00 01/28/25 09:11 400 MG Lorazepam 1 mg Q2HP PRN IV 01/19/25 12:00 01/19/25 12:29 1 MG Phenylephrine HCl 80 mg/Sodium Chloride 250 ml @ 7.5 mls/hr Q24H IV 01/19/25 12:00 Hydrocortisone Sodium Succinate 100 mg Q8HR IV 01/19/25 22:00 01/28/25 05:50 100 MG Polyethylene Glycol 17 gm DAILYPRN PRN PO 01/21/25 12:15 01/25/25 09:59 17 GM Sennosides 8.6 mg QHSP PRN PO 01/21/25 12:15 01/24/25 23:56 8.6 MG Norepinephrine Bitartrate 32 mg/ Sodium Chloride 250 ml @ 0.938 mls/ hr Q24H IV 01/21/25 12:15 01/26/25 05:05 3.75 MLS/HR Midodrine 10 mg TID@0600,1200,1800 PO 01/24/25 06:00 01/28/25 05:43 10 MG Morphine Sulfate 2 mg Q2HPRN PRN IV 01/28/25 15:30 Examination: GENERAL:Abnormal, LUNGS:Abnormal, MSK:Abnormal laboratory and microbiology Laboratory Tests 01/28/25 04:58 Test 01/28/25 04:58 Range/Units Serum Glucose 198 H 74-106 mg/dL Microbiology Date/Time Source Procedure Growth Status 01/17/25 17:30 Blood Blood Culture - Final NO GROWTH AFTER 5 DAYS OF INCUBATION. Complete 01/10/25 12:45 Ascities Fluid Gram Stain - Final Complete 01/10/25 12:45 Ascities Fluid Body Fluid Culture - Final Complete 01/09/25 14:00 Sputum Gram Stain - Final Complete 01/09/25 14:00 Respiratory Culture - Final Presumptive Lisa albicans Complete 01/09/25 05:00 Nose MRSA Screen - Final Complete Problem List/Assessment/Plan Problem List/Assessment/Plan End-stage renal disease on hemodialysis Heart failure with recent pericardial drainage due to recurrent pericardial effusions decompensated cirrhosis Diabetes Shock cardiogenic vs septic hyperkalemia VRE bacteremia recs HD tuesday ,, on levophed UF as tolerated- Plan discussed with: Other My Orders My Orders Orders - LARISA MCKEON MD Procedure Category Date Status Time Hemodialysis Orders ORDERS 01/28/25 Transmitted 13:52 Dietary Evaluation Review Comments: 1) Nepro carb steady 240ml BID (ordered per [facility] protocol) 2) Neprhro-Kaela 1 tab daily 3) Continue current plan of care Expected Outcomes/Goals: To meet >75% estimated needs Fu 3-5 days LARISA MCKEON MD January 28, 2025 15:56
--- NOTE | 2025-01-28 22:10 | DVHPN2 ---
Progress Note - Dictate Date Seen: January 28, 2025 Medical Necessity Reason Pt with a Central, PICC or Fol: Yes The following are medically ne: Central Line Subjective Patient was seen and evaluated in follow up in the ICU. Patient is on 2 LPM NC. Patient is continued on vasopressor therapy with norepinephrine and Midodrine as well as hydrocortisone without improvement in her blood pressure. HGB 9.1, HCT 27.5, K 5.6, BUN 61, Carbon Cleaner 3.72. vital signs Vital Sign Date Time Temp Pulse Resp B/P (MAP) Pulse Ox O2 Delivery O2 Flow Rate FiO2 01/28/25 21:10 73 8 90/57 (68) 100 01/28/25 20:00 97.1 97.1 01/28/25 20:00 Nasal Cannula* 2 28 Total Intake and Output 01/27/25 01/27/25 01/28/25 15:00 23:00 07:00 Intake Total 274.454 ml 511.872 ml 289.220 ml Output Total 0 ml 0 ml Balance 274.454 ml 511.872 ml 289.220 ml medications Current Medications Medications Dose Ordered Sig/Honey Route Start Time Stop Time Status Last Admin Dose Admin Diagnostic Test (Pha) 1 strip Q6HR 01/09/25 06:00 01/28/25 18:24 1 STRIP Insulin Human Regular Q6HR SC 01/09/25 06:00 01/28/25 18:34 2 UNITS Dextrose 50 ml UD PRN IV 01/09/25 00:30 01/18/25 10:40 50 ML Pantoprazole Sodium 40 mg DAILY IV 01/10/25 10:00 01/28/25 09:14 40 MG Ondansetron HCl 4 mg Q8HPRN PRN IV 01/09/25 10:30 01/28/25 13:06 4 MG Acetaminophen 650 mg Q6HP PRN PO 01/09/25 10:30 01/22/25 11:22 650 MG Ferrous Sulfate 325 mg BIDWM PO 01/10/25 18:00 01/28/25 08:59 325 MG Sevelamer HCl 800 mg TIDWM PO 01/10/25 18:00 01/28/25 18:24 800 MG Gabapentin 100 mg TID PO 01/11/25 14:00 01/28/25 05:43 100 MG Emollient Ointment 1 applic PRN PRN TOP 01/14/25 10:30 Albumin Human 100 ml @ 100 mls/hr PRN PRN IV 01/15/25 10:30 01/28/25 15:35 100 MLS/HR Multivit/Ca Carb/ B Cmplx/FA/Prenat 1 tab DAILY PO 01/16/25 10:00 01/28/25 09:14 1 TAB Throat Lozenges 1 carl Q2HP PRN MT 01/17/25 17:30 01/24/25 18:10 1 CARL Amiodarone HCl 400 mg Q12HR PO 01/18/25 22:00 01/28/25 09:11 400 MG Lorazepam 1 mg Q2HP PRN IV 01/19/25 12:00 01/19/25 12:29 1 MG Phenylephrine HCl 80 mg/Sodium Chloride 250 ml @ 7.5 mls/hr Q24H IV 01/19/25 12:00 Hydrocortisone Sodium Succinate 100 mg Q8HR IV 01/19/25 22:00 01/28/25 05:50 100 MG Polyethylene Glycol 17 gm DAILYPRN PRN PO 01/21/25 12:15 01/25/25 09:59 17 GM Sennosides 8.6 mg QHSP PRN PO 01/21/25 12:15 01/24/25 23:56 8.6 MG Norepinephrine Bitartrate 32 mg/ Sodium Chloride 250 ml @ 0.938 mls/ hr Q24H IV 01/21/25 12:15 01/28/25 15:15 5.156 MLS/HR Midodrine 10 mg TID@0600,1200,1800 PO 01/24/25 06:00 01/28/25 18:24 10 MG Morphine Sulfate 2 mg Q2HPRN PRN IV 01/28/25 15:30 01/28/25 14:55 2 MG objective GENERAL: Alert and oriented x 3. No acute distress. EYES: PERRL, EOMI. Anicteric. HENT: Moist mucous membranes. LUNGS: Clear to auscultation bilaterally. CARDIOVASCULAR: Regular rate and rhythm. Systolic murmur. ABDOMEN: Ascites, large distended abdomen. EXTREMITIES: No edema. NEUROLOGIC: No focal neurological deficits. SKIN: Mottling to bilateral lower extremities. Bilateral feet cool to touch. laboratory and microbiology Laboratory Tests 01/28/25 04:58 Test 01/28/25 04:58 Range/Units Serum Glucose 198 H 74-106 mg/dL Problem List Atrial tachycardia, now in junctional rhythm. NSTEMI, likely type II. Chronic HFpEF with right-sided heart failure, NYHA class III. History of atrial fibrillation (on amiodarone and Eliquis). Chronic pericardial effusion. History of hypertension. Hyperlipidemia. Decompensated liver cirrhosis with refractory ascites. Ascites. Type 2 diabetes mellitus. End-stage renal disease on hemodialysis. Acute hepatic/metabolic/toxic encephalopathy. Acute hypoxic respiratory failure. Septic shock due to Enterococcus faecium. Blindness. Hearing loss. Assessment/Plan Continued all current supportive medical care. Amiodarone. GI prophylactics. IV antibiotics as ordered. Morphine for pain management. Vasopressors for hemodynamic support. Additional plan as per the hospital course. Critical care time of 45 minutes provided to include time spent evaluation of patient at bedside, when appropriate patient/family education for diagnosis, treatment plan, review of pertinent medical information and discussion of care with specialty providers and PCP. Dietary Evaluation Review Comments: 1) Nepro carb steady 240ml BID (ordered per [facility] protocol) 2) Neprhro-Kaela 1 tab daily 3) Continue current plan of care Expected Outcomes/Goals: To meet >75% estimated needs Fu 3-5 days Plan discussed with: Patient SOREN MARTINEZ MD January 28, 2025 22:10
--- NOTE | 2025-01-28 23:45 | DVHPN2 ---
Progress Note - Dictate Date Seen: January 28, 2025 Medical Necessity Reason Pt with a Central, PICC or Fol: Yes The following are medically ne: Central Line Subjective Patient seen and examined at bedside. Remains on supplemental oxygen Overnight events reviewed. vital signs Vital Sign Date Time Temp Pulse Resp B/P (MAP) Pulse Ox O2 Delivery O2 Flow Rate FiO2 01/28/25 23:00 70 6 103/51 (68) 99 01/28/25 22:00 Nasal Cannula* 2 28 01/28/25 20:00 97.1 97.1 Total Intake and Output 01/27/25 01/27/25 01/28/25 15:00 23:00 07:00 Intake Total 274.454 ml 511.872 ml 289.220 ml Output Total 0 ml 0 ml Balance 274.454 ml 511.872 ml 289.220 ml medications Current Medications Medications Dose Ordered Sig/Honey Route Start Time Stop Time Status Last Admin Dose Admin Diagnostic Test (Pha) 1 strip Q6HR 01/09/25 06:00 01/28/25 18:24 1 STRIP Insulin Human Regular Q6HR SC 01/09/25 06:00 01/28/25 18:34 2 UNITS Dextrose 50 ml UD PRN IV 01/09/25 00:30 01/18/25 10:40 50 ML Pantoprazole Sodium 40 mg DAILY IV 01/10/25 10:00 01/28/25 09:14 40 MG Ondansetron HCl 4 mg Q8HPRN PRN IV 01/09/25 10:30 01/28/25 13:06 4 MG Acetaminophen 650 mg Q6HP PRN PO 01/09/25 10:30 01/22/25 11:22 650 MG Ferrous Sulfate 325 mg BIDWM PO 01/10/25 18:00 01/28/25 08:59 325 MG Sevelamer HCl 800 mg TIDWM PO 01/10/25 18:00 01/28/25 18:24 800 MG Gabapentin 100 mg TID PO 01/11/25 14:00 01/28/25 21:58 100 MG Emollient Ointment 1 applic PRN PRN TOP 01/14/25 10:30 Albumin Human 100 ml @ 100 mls/hr PRN PRN IV 01/15/25 10:30 01/28/25 15:35 100 MLS/HR Multivit/Ca Carb/ B Cmplx/FA/Prenat 1 tab DAILY PO 01/16/25 10:00 01/28/25 09:14 1 TAB Throat Lozenges 1 carl Q2HP PRN MT 01/17/25 17:30 01/24/25 18:10 1 CARL Amiodarone HCl 400 mg Q12HR PO 01/18/25 22:00 01/28/25 21:58 400 MG Lorazepam 1 mg Q2HP PRN IV 01/19/25 12:00 01/19/25 12:29 1 MG Phenylephrine HCl 80 mg/Sodium Chloride 250 ml @ 7.5 mls/hr Q24H IV 01/19/25 12:00 Hydrocortisone Sodium Succinate 100 mg Q8HR IV 01/19/25 22:00 01/28/25 21:57 100 MG Polyethylene Glycol 17 gm DAILYPRN PRN PO 01/21/25 12:15 01/25/25 09:59 17 GM Sennosides 8.6 mg QHSP PRN PO 01/21/25 12:15 01/24/25 23:56 8.6 MG Norepinephrine Bitartrate 32 mg/ Sodium Chloride 250 ml @ 0.938 mls/ hr Q24H IV 01/21/25 12:15 01/28/25 15:15 5.156 MLS/HR Midodrine 10 mg TID@0600,1200,1800 PO 01/24/25 06:00 01/28/25 18:24 10 MG Morphine Sulfate 2 mg Q2HPRN PRN IV 01/28/25 15:30 01/28/25 14:55 2 MG objective Gen.: Patient lying in bed in no apparent distress. On supplemental oxygen. Head: Normocephalic, atraumatic. Eyes: EOMI/PERRLA. Ears: Normal hearing. Normal anatomy. Neck/trachea: Trachea midline, supple. Nose: Normal external anatomy. Mouth: Moist mucous membranes. Chest: Decreased air entry bilaterally. No wheezing or rhonchi. Cardiovascular: Positive S1, positive S2. Regular rate and rhythm. Abdomen: Positive bowel sounds in all 4 quadrants. Soft, non-tender, non- distended. : Deferred. Rectal: Deferred. Skin: Warm, dry. Intact. Extremities: 2+ radial pulses bilaterally. No lower extremity edema. Neuro: Awake, alert, oriented x3. No gross motor or sensory deficits. Cranial nerves II through XII intact. Gait not assessed. laboratory and microbiology Laboratory Tests 01/28/25 04:58 Test 01/28/25 04:58 Range/Units Serum Glucose 198 H 74-106 mg/dL Assessment/Plan Impression: Acute hypoxic respiratory failure Dependence on supplemental oxygen End-stage renal disease, on hemodialysis Heart failure with recent pericardial window due to recurrent pericardial effusions Refractory ascites due to cirrhosis with frequent paracentesis Diabetes mellitus Non-ST elevation IA Events: Patient seen and examined at bedside. Low oxygen requirements On 2 liters per minute nasal cannula Taper O2 as tolerated CT abdomen/pelvis demonstrated pulmonary edema, ascites, mild cirrhosis and renal atrophy. On pressors for hemodynamic support Levophed 10 mcg/min Titrate to keep mean arterial pressure greater than 65 mmHg. Continue midodrine - monitor BP. Continue IV steroids Incentive spirometry Amiodarone PO Accu-Cheks, ISS. Monitor hemoglobin Iron supplementation Pain control Avoid oversedation HD per Nephrology Monitor renal function Protonix for GI prophylaxis S/p paracentesis on 01/13/25- 3.3 liters of ascitic fluid removed Received albumin post paracentesis. See separate procedure note for details. Labs and imaging reviewed. Rest of plan as noted below. Plan: Supplemental oxygen Titrate to keep O2 sats above 92%. S/p paracentesis on 01/10/25 Head of bed elevation Aspiration precautions IV steroids Continue midodrine Pressors as necessary for hemodynamic support Titrate to keep mean arterial pressure greater than 65 mmHg. Accu-Cheks, ISS Hemodialysis per Nephrology Nephrology recommendations appreciated. Monitor renal function. Monitor electrolytes. Supplement as necessary. Monitor ins and outs. GI prophylaxis - Protonix DVT prophylaxis. Prognosis: Poor given patient's multiple co-morbidities. Condition: Critical Rest of plan per hospitalist and other consultants. A total of 35 minutes of critical care time was spent reviewing the patient record, examining the patient, making a diagnostic and therapeutic plan, discussing this plan with the medical personnel, following up on diagnostic studies and following the patient for clinical stability excluding any and all procedures. At least 50% of this time was spent in direct, [id number] contact. Thank you, ELLIE Moreland, for allowing me to participate in this patient's care. Further recommendations will depend on the patient's clinical course. Please do not hesitate to contact me if you have any questions or concerns. This medical document was created using an electronic medical record system with [employer] computerized dictation system. Although these documentations are being carefully reviewed, there may still be some phonetic and typographical changes. The errors are purely typographical, due to imperfection on the software program, and do not reflect any compromise in the patient's medical care. Dietary Evaluation Review Comments: 1) Nepro carb steady 240ml BID (ordered per ONS protocol) 2) Neprhro-Kaela 1 tab daily 3) Continue current plan of care Expected Outcomes/Goals: To meet >75% estimated needs Fu 3-5 days Plan discussed with: Patient, Other (RN) Critical Care Time(min): 35 MAYE HEATH MD January 28, 2025 23:45
[2025-01-29] VITALS (107 sets, daily range): BP systolic 87–141; BP diastolic 10–60; PULSE 63–101; RESP 6–29; TEMP 97.1–98.7; O2SAT 92–100
[2025-01-29 05:33] LABS: Hematocrit 25.9 % (36.0-46.0); Hemoglobin 8.5 g/dL (12.2-16.2); Mean Corpuscular Hgb Conc. 32.7 g/dL (32.0-36.0); Platelet Count (auto) 40 10^3/uL (140-450); Red Blood Cells 2.57 10^6/uL (4.0-5.20); Red Cell Distribution Width 16.4 % (11.8-14.3); White Blood Cell 6.8 10^3/uL (4.4-10.8)
[2025-01-29 05:35] LABS: Band Neutrophils % (manual) 0; Basophils % (manual) 0 (0.0-2.0); Blast Cells 0; Eosinophils % (manual) 0 (0-7); Metamyelocytes % 0; Myelocytes % 0; Promyelocytes % 0; Reactive Lymphocytes 0
[2025-01-29 05:53] LABS: Alanine Aminotransferase 15 U/L (7-40); Alkaline Phosphatase 108 U/L (46-116); Anion Gap 15 (5-15); Aspartate Aminotransferase 18 U/L (13-40); BUN/Creatinine Ratio 14.4 (10.0-20.0); Calcium 9.8 mg/dL (8.7-10.4); Carbon Dioxide 24 mmol/L (20-31); Potassium 4.8 mmol/L (3.5-5.1); Sodium 137 mmol/L (136-145)
[2025-01-29 06:04] LABS: Bilirubin, Total 2.3 mg/dL (0.2-1.0); Blood Urea Nitrogen 43 mg/dL (9-23); Chloride 98 mmol/L (98-107); Glucose 170 mg/dL (74-106); Total Protein 5.4 g/dL (5.7-8.2)
[2025-01-29 06:52] LABS: Lymphocytes % (manual) 1 (10.0-50.0); Monocytes % (manual) 1 (0-12)
[2025-01-29 06:53] LABS: Large Platelets FEW; Platelet Estimate Decreased; Stomatocytes Moderate
--- NOTE | 2025-01-29 11:06 | DVHPN2 ---
Subjective Patient denies any symptoms Reviewed: Care Plan, H&P, Labs, Medications, Previous Orders, Radiology, Other (Consultations) Changes from previous H/P or p: No Changes General: Per HPI Objective Vitals Vital Signs Date Time Temp Pulse Resp B/P (MAP) Pulse Ox O2 Delivery O2 Flow Rate FiO2 01/29/25 10:45 81 13 103/49 (67) 100 01/29/25 10:00 Nasal Cannula* 3 32 01/29/25 08:00 98.5 98.5 Intake/Output Intake and Output 01/29/25 07:00 Intake Total 771.368 ml Output Total 350 ml Balance 421.368 ml Intake Oral 650 ml IV Total 121.368 ml Output Urine Total 0 ml Emesis 350 ml # Bowel Movements 4 General Appearance: Alert, Oriented X3, Cooperative, moderate distress HEENT: Atraumatic, Other (Blind) Lungs: Other (Decreased air entry bilateral) Cardiovascular: Normal S1, Normal S2, Other (Tracking failure) Abdomen: Normal bowel sounds, Soft, No tenderness, Other (Resolved ascites after paracentesis of almost 4 liters) Extremities: Other (Left upper extremity AV fistula with good bruit and thrill; dusky extremities) Neuro: Normal speech, Cranial nerves 3-12 NL, Other (Reviewed) Skin: Dry, Intact Psych/Mental Status: Mental status NL, Mood NL Medications Current Medications Medications Dose Ordered Sig/Honey Route Start Time Stop Time Status Last Admin Dose Admin Diagnostic Test (Pha) 1 strip Q6HR 01/09/25 06:00 01/29/25 05:37 1 STRIP Insulin Human Regular Q6HR SC 01/09/25 06:00 01/28/25 18:34 2 UNITS Dextrose 50 ml UD PRN IV 01/09/25 00:30 01/18/25 10:40 50 ML Pantoprazole Sodium 40 mg DAILY IV 01/10/25 10:00 01/29/25 09:37 40 MG Ondansetron HCl 4 mg Q8HPRN PRN IV 01/09/25 10:30 01/29/25 05:10 4 MG Acetaminophen 650 mg Q6HP PRN PO 01/09/25 10:30 01/22/25 11:22 650 MG Ferrous Sulfate 325 mg BIDWM PO 01/10/25 18:00 01/29/25 09:35 325 MG Sevelamer HCl 800 mg TIDWM PO 01/10/25 18:00 01/28/25 18:24 800 MG Gabapentin 100 mg TID PO 01/11/25 14:00 01/29/25 05:37 100 MG Emollient Ointment 1 applic PRN PRN TOP 01/14/25 10:30 Albumin Human 100 ml @ 100 mls/hr PRN PRN IV 01/15/25 10:30 01/28/25 15:35 100 MLS/HR Multivit/Ca Carb/ B Cmplx/FA/Prenat 1 tab DAILY PO 01/16/25 10:00 01/28/25 09:14 1 TAB Throat Lozenges 1 carl Q2HP PRN MT 01/17/25 17:30 01/24/25 18:10 1 CARL Amiodarone HCl 400 mg Q12HR PO 01/18/25 22:00 01/29/25 09:33 400 MG Lorazepam 1 mg Q2HP PRN IV 01/19/25 12:00 01/19/25 12:29 1 MG Phenylephrine HCl 80 mg/Sodium Chloride 250 ml @ 7.5 mls/hr Q24H IV 01/19/25 12:00 Hydrocortisone Sodium Succinate 100 mg Q8HR IV 01/19/25 22:00 01/29/25 05:37 100 MG Polyethylene Glycol 17 gm DAILYPRN PRN PO 01/21/25 12:15 01/25/25 09:59 17 GM Sennosides 8.6 mg QHSP PRN PO 01/21/25 12:15 01/24/25 23:56 8.6 MG Norepinephrine Bitartrate 32 mg/ Sodium Chloride 250 ml @ 0.938 mls/ hr Q24H IV 01/21/25 12:15 01/28/25 15:15 5.156 MLS/HR Midodrine 10 mg TID@0600,1200,1800 PO 01/24/25 06:00 01/29/25 05:37 10 MG Morphine Sulfate 2 mg Q2HPRN PRN IV 01/28/25 15:30 01/28/25 14:55 2 MG Laboratory Results Laboratory Tests 01/29/25 05:00 Chemistry Test 01/29/25 05:00 Albumin 4.0 g/dL (3.2-4.8) Calcium Level 9.8 mg/dL (8.7-10.4) Total Protein 5.4 g/dL (5.7-8.2) L LFT Test 01/29/25 05:00 Alanine Aminotransferase (ALT) 15 U/L (7-40) Alkaline Phosphatase 108 U/L (46-116) Aspartate Amino Transferase (AST) 18 U/L (13-40) Total Bilirubin 2.3 mg/dL (0.2-1.0) H Microbiology Microbiology Date/Time Source Procedure Growth Status 01/17/25 17:30 Blood Blood Culture - Final NO GROWTH AFTER 5 DAYS OF INCUBATION. Complete 01/10/25 12:45 Ascities Fluid Gram Stain - Final Complete 01/10/25 12:45 Ascities Fluid Body Fluid Culture - Final Complete 01/09/25 14:00 Sputum Gram Stain - Final Complete 01/09/25 14:00 Respiratory Culture - Final Presumptive Lisa albicans Complete 01/09/25 05:00 Nose MRSA Screen - Final Complete Labs and/or images reviewed: Labs reviewed by me, Image(s) reviewed by me Assessment/Plan Assessment/Plan Plan: -septic shock with VRE in the blood -cirrhosis with severe ascites -ESRD with hemodialysis -NSTEMI, probably type secondary to recent pericardiocentesis -legally blind -anemia of chronic disease - dyslipidemia -paroxysmal atrial fibrillation -possible infiltration of norepinephrine to right upper extremity with extravasation. Plan: Events: No events overnight. Repeat blood culture negative. White blood cell count normal. Noticeable difference with radial and femoral pulses. Systolic blood pressure with noted 40 point difference between right femoral and right radial. Discussed with primary nurse to wean norepinephrine drip using cuff pressures to right lower extremity. Attempted to reach patient's daughter, darcy. Unsuccessful. Plan of care includes possible transfer to LTAC if unable to wean norepinephrine drip. Patient also appropriate for conservative management given her multiple comorbidities. -continue Zyvox -continue vasopressor therapy -pain management: Continue current regimen -nephrology consultation: Recommendations reviewed -repeat labs in a.m. Critical care time spent with patient discussing and formulating plan of care: 40 minutes. This does not include time spent performing procedures. This medical document was created using an electronic medical record system with [employer] system. Although this document has been carefully reviewed, there may still be some phonetic and typographical errors. These areas are purely typographical due to imperfections of the software programs, and do not reflect any compromise in the patient's medical care. Plan discussed with: Patient, Other (RN) My Orders Orders - PAVEL GUAMAN NP Procedure Category Date Status Time Ct Ab Pel Wo Con-No CT 01/28/25 Resulted Oral Or Iv 14:49 Morphine Sulfate PHA 01/28/25 In Process Injection 15:30 Nystatin PHA 01/29/25 Verified (Mouth-Throat) 12:00 Basic Metabolic Panel LAB 01/30/25 Verified 04:00 Complete Blood Count LAB 01/30/25 Verified 04:00 Date of Service: January 29, 2025 Billing Provider: PAVEL GUAMAN NP Common Visit Codes: [id number] CARE 30-74 MIN PAVEL GUAMAN NP January 29, 2025 11:06
[2025-01-29] MEDS: NYSTATIN (MOUTH-THROAT) 500,000 UNITS/5 ML SUSP MT SCH (11:39)
[2025-01-29 14:07] LABS: Protein, Body Fluid 2.6 g/dL (.)
--- NOTE | 2025-01-29 21:04 | DVHPN2 ---
Progress Note Date Seen: January 29, 2025 Medical Necessity Reason Pt with a Central, PICC or Fol: Yes The following are medically ne: Central Line Subjective Patient reports: No new complaints Review of Systems: Deferred Objective vital signs Vital Sign Date Time Temp Pulse Resp B/P (MAP) Pulse Ox O2 Delivery O2 Flow Rate FiO2 01/29/25 20:45 69 11 105/53 (70) 100 01/29/25 20:00 Nasal Cannula* 2 28 01/29/25 20:00 97.1 97.1 Total Intake and Output 01/28/25 01/28/25 01/29/25 15:00 23:00 07:00 Intake Total 38.420 ml 345.449 ml 387.499 ml Output Total 350 ml Balance 38.420 ml -4.551 ml 387.499 ml medications Current Medications Medications Dose Ordered Sig/Honey Route Start Time Stop Time Status Last Admin Dose Admin Diagnostic Test (Pha) 1 strip Q6HR 01/09/25 06:00 01/29/25 17:30 1 STRIP Insulin Human Regular Q6HR SC 01/09/25 06:00 01/29/25 17:31 3 UNITS Dextrose 50 ml UD PRN IV 01/09/25 00:30 01/18/25 10:40 50 ML Pantoprazole Sodium 40 mg DAILY IV 01/10/25 10:00 01/29/25 09:37 40 MG Ondansetron HCl 4 mg Q8HPRN PRN IV 01/09/25 10:30 01/29/25 13:43 4 MG Acetaminophen 650 mg Q6HP PRN PO 01/09/25 10:30 01/29/25 13:53 650 MG Ferrous Sulfate 325 mg BIDWM PO 01/10/25 18:00 01/29/25 09:35 325 MG Sevelamer HCl 800 mg TIDWM PO 01/10/25 18:00 01/28/25 18:24 800 MG Gabapentin 100 mg TID PO 01/11/25 14:00 01/29/25 05:37 100 MG Emollient Ointment 1 applic PRN PRN TOP 01/14/25 10:30 Albumin Human 100 ml @ 100 mls/hr PRN PRN IV 01/15/25 10:30 01/28/25 15:35 100 MLS/HR Multivit/Ca Carb/ B Cmplx/FA/Prenat 1 tab DAILY PO 01/16/25 10:00 01/28/25 09:14 1 TAB Amiodarone HCl 400 mg Q12HR PO 01/18/25 22:00 01/29/25 09:33 400 MG Lorazepam 1 mg Q2HP PRN IV 01/19/25 12:00 01/19/25 12:29 1 MG Phenylephrine HCl 80 mg/Sodium Chloride 250 ml @ 7.5 mls/hr Q24H IV 01/19/25 12:00 Hydrocortisone Sodium Succinate 100 mg Q8HR IV 01/19/25 22:00 01/29/25 14:50 100 MG Polyethylene Glycol 17 gm DAILYPRN PRN PO 01/21/25 12:15 01/25/25 09:59 17 GM Sennosides 8.6 mg QHSP PRN PO 01/21/25 12:15 01/24/25 23:56 8.6 MG Norepinephrine Bitartrate 32 mg/ Sodium Chloride 250 ml @ 0.938 mls/ hr Q24H IV 01/21/25 12:15 01/29/25 14:58 3.047 MLS/HR Midodrine 10 mg TID@0600,1200,1800 PO 01/24/25 06:00 01/29/25 17:34 10 MG Morphine Sulfate 2 mg Q2HPRN PRN IV 01/28/25 15:30 01/28/25 14:55 2 MG Nystatin 5 ml QID MT 01/29/25 12:00 01/29/25 11:39 5 ML Examination: GENERAL:Abnormal, LUNGS:Abnormal, MSK:Abnormal, NEURO:Normal laboratory and microbiology Laboratory Tests 01/29/25 05:00 Test 01/29/25 05:00 Range/Units Serum Glucose 170 H 74-106 mg/dL Microbiology Date/Time Source Procedure Growth Status 01/17/25 17:30 Blood Blood Culture - Final NO GROWTH AFTER 5 DAYS OF INCUBATION. Complete 01/10/25 12:45 Ascities Fluid Gram Stain - Final Complete 01/10/25 12:45 Ascities Fluid Body Fluid Culture - Final Complete 01/09/25 14:00 Sputum Gram Stain - Final Complete 01/09/25 14:00 Respiratory Culture - Final Presumptive Lisa albicans Complete 01/09/25 05:00 Nose MRSA Screen - Final Complete Problem List/Assessment/Plan Problem List/Assessment/Plan End-stage renal disease on hemodialysis Heart failure with recent pericardial drainage due to recurrent pericardial effusions decompensated cirrhosis Diabetes Shock cardiogenic vs septic hyperkalemia VRE bacteremia recs HD today on levophed UF as tolerated- Plan discussed with: Other (sister) Dietary Evaluation Review Comments: 1) Nepro carb steady 240ml BID (ordered per [facility] protocol) 2) Neprhro-Kaela 1 tab daily 3) Continue current plan of care Expected Outcomes/Goals: To meet >75% estimated needs Fu 3-5 days LARISA MCKEON MD January 29, 2025 21:04
--- NOTE | 2025-01-29 22:57 | DVHPN2 ---
Progress Note - Dictate Date Seen: January 29, 2025 Medical Necessity Reason Pt with a Central, PICC or Fol: Yes The following are medically ne: Central Line Subjective Patient was seen and evaluated in follow up in the ICU. No overnight events. Patient is on 2 LPM NC.Repeat blood culture negative. HGB 8.5, HCT 25.9, BUN 43, Glazing Superintendent 2.99. CT abd/pel shows pulmonary edema versus bilateral lower lobe infiltrates with right pleural effusion, moderately large amount of ascites, mild cirrhosis of the liver and renal atrophy. Patient may need LTAC transfer if unable to wean norepinephrine drip. vital signs Vital Sign Date Time Temp Pulse Resp B/P (MAP) Pulse Ox O2 Delivery O2 Flow Rate FiO2 01/29/25 22:30 72 16 100/51 (67) 100 01/29/25 22:00 Nasal Cannula* 2 28 01/29/25 20:00 97.1 97.1 Total Intake and Output 01/28/25 01/28/25 01/29/25 15:00 23:00 07:00 Intake Total 38.420 ml 345.449 ml 387.499 ml Output Total 350 ml Balance 38.420 ml -4.551 ml 387.499 ml medications Current Medications Medications Dose Ordered Sig/Honey Route Start Time Stop Time Status Last Admin Dose Admin Diagnostic Test (Pha) 1 strip Q6HR 01/09/25 06:00 01/29/25 17:30 1 STRIP Insulin Human Regular Q6HR SC 01/09/25 06:00 01/29/25 17:31 3 UNITS Dextrose 50 ml UD PRN IV 01/09/25 00:30 01/18/25 10:40 50 ML Pantoprazole Sodium 40 mg DAILY IV 01/10/25 10:00 01/29/25 09:37 40 MG Ondansetron HCl 4 mg Q8HPRN PRN IV 01/09/25 10:30 01/29/25 13:43 4 MG Acetaminophen 650 mg Q6HP PRN PO 01/09/25 10:30 01/29/25 13:53 650 MG Ferrous Sulfate 325 mg BIDWM PO 01/10/25 18:00 01/29/25 09:35 325 MG Sevelamer HCl 800 mg TIDWM PO 01/10/25 18:00 01/28/25 18:24 800 MG Gabapentin 100 mg TID PO 01/11/25 14:00 01/29/25 05:37 100 MG Emollient Ointment 1 applic PRN PRN TOP 01/14/25 10:30 Albumin Human 100 ml @ 100 mls/hr PRN PRN IV 01/15/25 10:30 01/29/25 22:17 100 MLS/HR Multivit/Ca Carb/ B Cmplx/FA/Prenat 1 tab DAILY PO 01/16/25 10:00 01/28/25 09:14 1 TAB Amiodarone HCl 400 mg Q12HR PO 01/18/25 22:00 01/29/25 09:33 400 MG Lorazepam 1 mg Q2HP PRN IV 01/19/25 12:00 01/19/25 12:29 1 MG Phenylephrine HCl 80 mg/Sodium Chloride 250 ml @ 7.5 mls/hr Q24H IV 01/19/25 12:00 Hydrocortisone Sodium Succinate 100 mg Q8HR IV 01/19/25 22:00 01/29/25 14:50 100 MG Polyethylene Glycol 17 gm DAILYPRN PRN PO 01/21/25 12:15 01/25/25 09:59 17 GM Sennosides 8.6 mg QHSP PRN PO 01/21/25 12:15 01/24/25 23:56 8.6 MG Norepinephrine Bitartrate 32 mg/ Sodium Chloride 250 ml @ 0.938 mls/ hr Q24H IV 01/21/25 12:15 01/29/25 14:58 3.047 MLS/HR Midodrine 10 mg TID@0600,1200,1800 PO 01/24/25 06:00 01/29/25 17:34 10 MG Morphine Sulfate 2 mg Q2HPRN PRN IV 01/28/25 15:30 01/28/25 14:55 2 MG Nystatin 5 ml QID MT 01/29/25 12:00 01/29/25 11:39 5 ML objective GENERAL: Alert and oriented x 3. No acute distress. EYES: PERRL, EOMI. Anicteric. HENT: Moist mucous membranes. LUNGS: Clear to auscultation bilaterally. CARDIOVASCULAR: Regular rate and rhythm. Systolic murmur. ABDOMEN: Ascites, large distended abdomen. EXTREMITIES: No edema. NEUROLOGIC: No focal neurological deficits. SKIN: Mottling to bilateral lower extremities. Bilateral feet cool to touch. laboratory and microbiology Laboratory Tests 01/29/25 05:00 Test 01/29/25 05:00 Range/Units Serum Glucose 170 H 74-106 mg/dL Problem List Atrial tachycardia, now in junctional rhythm. NSTEMI, likely type II. Chronic HFpEF with right-sided heart failure, NYHA class III. History of atrial fibrillation (on amiodarone and Eliquis). Chronic pericardial effusion. History of hypertension. Hyperlipidemia. Decompensated liver cirrhosis with refractory ascites. Ascites. Type 2 diabetes mellitus. End-stage renal disease on hemodialysis. Acute hepatic/metabolic/toxic encephalopathy. Acute hypoxic respiratory failure. Septic shock due to Enterococcus faecium. Blindness. Hearing loss. Assessment/Plan Continued all current supportive medical care. Amiodarone. GI prophylactics. IV antibiotics as ordered. Morphine for pain management. Vasopressors for hemodynamic support. Additional plan as per the hospital course. Critical care time of 45 minutes provided to include time spent evaluation of patient at bedside, when appropriate patient/family education for diagnosis, treatment plan, review of pertinent medical information and discussion of care with specialty providers and PCP. Dietary Evaluation Review Comments: 1) Nepro carb steady 240ml BID (ordered per [facility] protocol) 2) Neprhro-Kaela 1 tab daily 3) Continue current plan of care Expected Outcomes/Goals: To meet >75% estimated needs Fu 3-5 days Plan discussed with: Patient SOREN MARTINEZ MD January 29, 2025 22:57
--- NOTE | 2025-01-29 23:33 | DVHPN2 ---
Progress Note - Dictate Date Seen: January 29, 2025 Medical Necessity Reason Pt with a Central, PICC or Fol: Yes The following are medically ne: Central Line Subjective Patient seen and examined at bedside. Remains on supplemental oxygen Overnight events reviewed. vital signs Vital Sign Date Time Temp Pulse Resp B/P (MAP) Pulse Ox O2 Delivery O2 Flow Rate FiO2 01/29/25 23:15 76 17 97/49 (65) 100 01/29/25 22:00 Nasal Cannula* 2 28 01/29/25 20:00 97.1 97.1 Total Intake and Output 01/28/25 01/28/25 01/29/25 15:00 23:00 07:00 Intake Total 38.420 ml 345.449 ml 387.499 ml Output Total 350 ml Balance 38.420 ml -4.551 ml 387.499 ml medications Current Medications Medications Dose Ordered Sig/Honey Route Start Time Stop Time Status Last Admin Dose Admin Diagnostic Test (Pha) 1 strip Q6HR 01/09/25 06:00 01/29/25 17:30 1 STRIP Insulin Human Regular Q6HR SC 01/09/25 06:00 01/29/25 17:31 3 UNITS Dextrose 50 ml UD PRN IV 01/09/25 00:30 01/18/25 10:40 50 ML Pantoprazole Sodium 40 mg DAILY IV 01/10/25 10:00 01/29/25 09:37 40 MG Ondansetron HCl 4 mg Q8HPRN PRN IV 01/09/25 10:30 01/29/25 13:43 4 MG Acetaminophen 650 mg Q6HP PRN PO 01/09/25 10:30 01/29/25 13:53 650 MG Ferrous Sulfate 325 mg BIDWM PO 01/10/25 18:00 01/29/25 09:35 325 MG Sevelamer HCl 800 mg TIDWM PO 01/10/25 18:00 01/28/25 18:24 800 MG Gabapentin 100 mg TID PO 01/11/25 14:00 01/29/25 05:37 100 MG Emollient Ointment 1 applic PRN PRN TOP 01/14/25 10:30 Albumin Human 100 ml @ 100 mls/hr PRN PRN IV 01/15/25 10:30 01/29/25 22:17 100 MLS/HR Multivit/Ca Carb/ B Cmplx/FA/Prenat 1 tab DAILY PO 01/16/25 10:00 01/28/25 09:14 1 TAB Amiodarone HCl 400 mg Q12HR PO 01/18/25 22:00 01/29/25 09:33 400 MG Lorazepam 1 mg Q2HP PRN IV 01/19/25 12:00 01/19/25 12:29 1 MG Phenylephrine HCl 80 mg/Sodium Chloride 250 ml @ 7.5 mls/hr Q24H IV 01/19/25 12:00 Hydrocortisone Sodium Succinate 100 mg Q8HR IV 01/19/25 22:00 01/29/25 14:50 100 MG Polyethylene Glycol 17 gm DAILYPRN PRN PO 01/21/25 12:15 01/25/25 09:59 17 GM Sennosides 8.6 mg QHSP PRN PO 01/21/25 12:15 01/24/25 23:56 8.6 MG Norepinephrine Bitartrate 32 mg/ Sodium Chloride 250 ml @ 0.938 mls/ hr Q24H IV 01/21/25 12:15 01/29/25 14:58 3.047 MLS/HR Midodrine 10 mg TID@0600,1200,1800 PO 01/24/25 06:00 01/29/25 17:34 10 MG Morphine Sulfate 2 mg Q2HPRN PRN IV 01/28/25 15:30 01/28/25 14:55 2 MG Nystatin 5 ml QID MT 01/29/25 12:00 01/29/25 11:39 5 ML objective Gen.: Patient lying in bed in no apparent distress. On supplemental oxygen. Head: Normocephalic, atraumatic. Eyes: EOMI/PERRLA. Ears: Normal hearing. Normal anatomy. Neck/trachea: Trachea midline, supple. Nose: Normal external anatomy. Mouth: Moist mucous membranes. Chest: Decreased air entry bilaterally. No wheezing or rhonchi. Cardiovascular: Positive S1, positive S2. Regular rate and rhythm. Abdomen: Positive bowel sounds in all 4 quadrants. Soft, non-tender, non- distended. : Deferred. Rectal: Deferred. Skin: Warm, dry. Intact. Extremities: 2+ radial pulses bilaterally. No lower extremity edema. Neuro: Awake, alert, oriented x3. No gross motor or sensory deficits. Cranial nerves II through XII intact. Gait not assessed. laboratory and microbiology Laboratory Tests 01/29/25 05:00 Test 01/29/25 05:00 Range/Units Serum Glucose 170 H 74-106 mg/dL Assessment/Plan Impression: Acute hypoxic respiratory failure Dependence on supplemental oxygen End-stage renal disease, on hemodialysis Heart failure with recent pericardial window due to recurrent pericardial effusions Refractory ascites due to cirrhosis with frequent paracentesis Diabetes mellitus Non-ST elevation [place] Events: Patient seen and examined at bedside. Low oxygen requirements On 2 liters per minute nasal cannula Taper O2 as tolerated CT abdomen/pelvis demonstrated pulmonary edema, ascites, mild cirrhosis and renal atrophy. On pressors for hemodynamic support Levophed 6.5 mcg/min Titrate to keep mean arterial pressure greater than 65 mmHg. Improving pressor requirements Continue midodrine - monitor BP. Continue IV steroids Incentive spirometry Amiodarone PO Accu-Cheks, ISS. Monitor hemoglobin Iron supplementation Pain control Avoid oversedation HD per Nephrology Monitor renal function Protonix for GI prophylaxis LTAC evaluation. S/p paracentesis on 01/13/25- 3.3 liters of ascitic fluid removed Received albumin post paracentesis - See separate procedure note for details. S/p paracentesis on 01/10/25 Labs and imaging reviewed. Rest of plan as noted below. Plan: Supplemental oxygen Titrate to keep O2 sats above 92%. Head of bed elevation Aspiration precautions IV steroids Continue midodrine Pressors as necessary for hemodynamic support Titrate to keep mean arterial pressure greater than 65 mmHg. Accu-Cheks, ISS Hemodialysis per Nephrology Nephrology recommendations appreciated. Monitor renal function. Monitor electrolytes. Supplement as necessary. Monitor ins and outs. GI prophylaxis - Protonix DVT prophylaxis. Prognosis: Poor given patient's multiple co-morbidities. Condition: Critical Rest of plan per hospitalist and other consultants. A total of 35 minutes of critical care time was spent reviewing the patient record, examining the patient, making a diagnostic and therapeutic plan, discussing this plan with the medical personnel, following up on diagnostic studies and following the patient for clinical stability excluding any and all procedures. At least 50% of this time was spent in direct, [id number] contact. Thank you, ELLIE Moreland, for allowing me to participate in this patient's care. Further recommendations will depend on the patient's clinical course. Please do not hesitate to contact me if you have any questions or concerns. This medical document was created using an electronic medical record system with [employer] computerized dictation system. Although these documentations are being carefully reviewed, there may still be some phonetic and typographical changes. The errors are purely typographical, due to imperfection on the software program, and do not reflect any compromise in the patient's medical care. Dietary Evaluation Review Comments: 1) Nepro carb steady 240ml BID (ordered per [facility]NS protocol) 2) Neprhro-Kaela 1 tab daily 3) Continue current plan of care Expected Outcomes/Goals: To meet >75% estimated needs Fu 3-5 days Plan discussed with: Patient, Other (LAVERNE Martinez) Critical Care Time(min): 35 MAYE HEATH MD January 29, 2025 23:33
[2025-01-30] VITALS (94 sets, daily range): BP systolic 85–131; BP diastolic 24–63; PULSE 65–134; RESP 6–28; TEMP 97.1–98.2; O2SAT 69–100
[2025-01-30 05:03] LABS: Basophils # (auto) 0 10 ^3/uL (0-0.2); Eosinophils # (auto) 0 10 ^3/uL (0-0.8); Hemoglobin 7.7 g/dL (12.2-16.2); Lymphocytes # (auto) 0.1 10 ^3/uL (0.4-5.4); Monocytes # (auto) 0.4 10 ^3/uL (0-1.3); Platelet Count (auto) 37 10^3/uL (140-450)
[2025-01-30 05:08] LABS: Basophils % (auto) 0.1 % (0.0-2.0); Lymphocytes % (auto) 2.2 % (10.0-50.0); Mean Corpuscular Hemoglobin 32.8 pg (28.0-32.0); Mean Corpuscular Hgb Conc. 33.4 g/dL (32.0-36.0); Mean Corpuscular Volume 98.3 fL (80.0-100.0); Monocytes % (auto) 5.9 % (0.0-12.0); Neutrophils # (auto) 6.1 10 ^3/uL (1.6-8.6); Neutrophils % (auto) 91.8 % (37.0-80.0); Nucleated Red Blood Cells % 0.3 %; Red Blood Cells 2.34 10^6/uL (4.0-5.20); Red Cell Distribution Width 15.9 % (11.8-14.3); White Blood Cell 6.6 10^3/uL (4.4-10.8)
[2025-01-30 05:12] LABS: Potassium 3.7 mmol/L (3.5-5.1); Sodium 138 mmol/L (136-145)
[2025-01-30 05:13] LABS: Anion Gap 14 (5-15); Carbon Dioxide 26 mmol/L (20-31)
[2025-01-30 05:14] LABS: Calcium 9.9 mg/dL (8.7-10.4)
[2025-01-30 05:15] LABS: Chloride 98 mmol/L (98-107)
[2025-01-30 05:18] LABS: BUN/Creatinine Ratio 13.4 (10.0-20.0)
[2025-01-30 05:39] LABS: Blood Urea Nitrogen 27 mg/dL (9-23); Glucose 212 mg/dL (74-106)
--- NOTE | 2025-01-30 09:55 | DVHPN2 ---
Subjective Patient denies any symptoms Reviewed: Care Plan, H&P, Labs, Medications, Previous Orders, Radiology, Other (Consultations) Changes from previous H/P or p: No Changes General: Per HPI Objective Vitals Vital Signs Date Time Temp Pulse Resp B/P (MAP) Pulse Ox O2 Delivery O2 Flow Rate FiO2 01/30/25 08:30 73 17 90/48 (62) 98 01/30/25 08:00 97.6 97.6 01/30/25 06:00 Nasal Cannula* 2 28 Intake/Output Intake and Output 01/30/25 07:00 Intake Total 516.643 ml Balance 516.643 ml Intake Oral 440 ml IV Total 76.643 ml # Bowel Movements 2 General Appearance: Alert, Oriented X3, Cooperative, moderate distress HEENT: Atraumatic, Other (Blind) Lungs: Other (Decreased air entry bilateral) Cardiovascular: Normal S1, Normal S2, Other (Tracking failure) Abdomen: Normal bowel sounds, Soft, No tenderness, Other (Resolved ascites after paracentesis of almost 4 liters) Extremities: Other (Left upper extremity AV fistula with good bruit and thrill; dusky extremities) Neuro: Normal speech, Cranial nerves 3-12 NL, Other (Reviewed) Skin: Dry, Intact Psych/Mental Status: Mental status NL, Mood NL Medications Current Medications Medications Dose Ordered Sig/Honey Route Start Time Stop Time Status Last Admin Dose Admin Diagnostic Test (Pha) 1 strip Q6HR 01/09/25 06:00 01/30/25 05:46 1 STRIP Insulin Human Regular Q6HR SC 01/09/25 06:00 01/30/25 05:50 3 UNITS Dextrose 50 ml UD PRN IV 01/09/25 00:30 01/18/25 10:40 50 ML Pantoprazole Sodium 40 mg DAILY IV 01/10/25 10:00 01/29/25 09:37 40 MG Ondansetron HCl 4 mg Q8HPRN PRN IV 01/09/25 10:30 01/30/25 00:31 4 MG Acetaminophen 650 mg Q6HP PRN PO 01/09/25 10:30 01/30/25 03:57 650 MG Ferrous Sulfate 325 mg BIDWM PO 01/10/25 18:00 01/30/25 08:28 325 MG Sevelamer HCl 800 mg TIDWM PO 01/10/25 18:00 5/7/25 08:28 800 MG Gabapentin 100 mg TID PO 01/11/25 14:00 01/30/25 05:28 100 MG Emollient Ointment 1 applic PRN PRN TOP 01/14/25 10:30 Albumin Human 100 ml @ 100 mls/hr PRN PRN IV 01/15/25 10:30 01/29/25 22:17 100 MLS/HR Multivit/Ca Carb/ B Cmplx/FA/Prenat 1 tab DAILY PO 01/16/25 10:00 01/28/25 09:14 1 TAB Amiodarone HCl 400 mg Q12HR PO 01/18/25 22:00 01/29/25 22:00 400 MG Lorazepam 1 mg Q2HP PRN IV 01/19/25 12:00 01/19/25 12:29 1 MG Phenylephrine HCl 80 mg/Sodium Chloride 250 ml @ 7.5 mls/hr Q24H IV 01/19/25 12:00 Hydrocortisone Sodium Succinate 100 mg Q8HR IV 01/19/25 22:00 01/30/25 05:28 100 MG Polyethylene Glycol 17 gm DAILYPRN PRN PO 01/21/25 12:15 01/25/25 09:59 17 GM Sennosides 8.6 mg QHSP PRN PO 01/21/25 12:15 01/24/25 23:56 8.6 MG Norepinephrine Bitartrate 32 mg/ Sodium Chloride 250 ml @ 0.938 mls/ hr Q24H IV 01/21/25 12:15 01/29/25 14:58 3.047 MLS/HR Midodrine 10 mg TID@0600,1200,1800 PO 01/24/25 06:00 01/30/25 05:29 10 MG Morphine Sulfate 2 mg Q2HPRN PRN IV 01/28/25 15:30 01/28/25 14:55 2 MG Nystatin 5 ml QID MT 01/29/25 12:00 01/30/25 05:28 5 ML Laboratory Results Laboratory Tests 01/30/25 04:42 Chemistry Test 01/30/25 04:42 Calcium Level 9.9 mg/dL (8.7-10.4) Microbiology Microbiology Date/Time Source Procedure Growth Status 01/17/25 17:30 Blood Blood Culture - Final NO GROWTH AFTER 5 DAYS OF INCUBATION. Complete 01/10/25 12:45 Ascities Fluid Gram Stain - Final Complete 01/10/25 12:45 Ascities Fluid Body Fluid Culture - Final Complete 01/09/25 14:00 Sputum Gram Stain - Final Complete 01/09/25 14:00 Respiratory Culture - Final Presumptive Lisa albicans Complete 01/09/25 05:00 Nose MRSA Screen - Final Complete Labs and/or images reviewed: Labs reviewed by me, Image(s) reviewed by me Assessment/Plan Assessment/Plan Plan: -septic shock with VRE in the blood -cirrhosis with severe ascites -ESRD with hemodialysis -NSTEMI, probably type secondary to recent pericardiocentesis -legally blind -anemia of chronic disease - dyslipidemia -paroxysmal atrial fibrillation -possible infiltration of norepinephrine to right upper extremity with extravasation. Plan: Events: Cuff pressures are now taken on the right upper extremity per night nurse. Long discussion was made with the day nurse yesterday regarding probable peripheral arterial disease to right upper extremity given a noticeable difference in pulse pressures from right upper and lower extremity. Discussion made with the patient's family was bedside for placement of a femoral arterial line placement. -continue vasopressor therapy -pain management: Continue current regimen -nephrology consultation: Recommendations reviewed -repeat labs in a.m. Critical care time spent with patient discussing and formulating plan of care: 40 minutes. This does not include time spent performing procedures. This medical document was created using an electronic medical record system with [employer] Document Preparation dictation system. Although this document has been carefully reviewed, there may still be some phonetic and typographical errors. These areas are purely typographical due to imperfections of the software programs, and do not reflect any compromise in the patient's medical care. Plan discussed with: Patient, Other (RN) My Orders Orders - PAVEL GUAMAN NP Procedure Category Date Status Time Nystatin PHA 01/29/25 In Process (Mouth-Throat) 12:00 Communication Order ORDERS 01/30/25 Transmitted 09:15 Date of Service: January 30, 2025 Billing Provider: PAVEL GUAMAN NP Common Visit Codes: [id number] CARE 30-74 MIN PAVEL GUAMAN NP January 30, 2025 09:55
--- NOTE | 2025-01-30 15:48 | DVHNC2 ---
Arterial Puncture Indication: Assess ventilatory status, Assess acid-base status Procedure: Sterile Preparation, Arterial Punct Obtained Location: Right Femoral Informed consent obtained: Yes Risks/benefits/alt described: Yes Notes EBL: 6ml US guidance CPT code: 47973 Date of Service: January 30, 2025 Billing Provider: PAVEL GUAMAN NP Common Visit Codes: PROCEDURE ONLY Procedure Codes: [id number] LINE PAVEL GUAMAN NP January 30, 2025 15:47
--- NOTE | 2025-01-30 16:18 | DVHPN2 ---
Progress Note Date Seen: January 30, 2025 Medical Necessity Reason Pt with a Central, PICC or Fol: Yes The following are medically ne: Central Line Subjective Patient reports: No new complaints Review of Systems: Deferred Objective vital signs Vital Sign Date Time Temp Pulse Resp B/P (MAP) Pulse Ox O2 Delivery O2 Flow Rate FiO2 01/30/25 15:00 67 14 112/46 (68) 100 01/30/25 14:00 Nasal Cannula* 2 28 01/30/25 12:00 98.1 98.1 Total Intake and Output 01/29/25 01/29/25 01/30/25 15:00 23:00 07:00 Intake Total 26.954 ml 228.359 ml 264.611 ml Balance 26.954 ml 228.359 ml 264.611 ml medications Current Medications Medications Dose Ordered Sig/Honey Route Start Time Stop Time Status Last Admin Dose Admin Diagnostic Test (Pha) 1 strip Q6HR 01/09/25 06:00 01/30/25 11:53 1 STRIP Insulin Human Regular Q6HR SC 01/09/25 06:00 01/30/25 11:52 4 UNITS Dextrose 50 ml UD PRN IV 01/09/25 00:30 01/18/25 10:40 50 ML Pantoprazole Sodium 40 mg DAILY IV 01/10/25 10:00 01/30/25 10:08 40 MG Ondansetron HCl 4 mg Q8HPRN PRN IV 01/09/25 10:30 01/30/25 00:31 4 MG Acetaminophen 650 mg Q6HP PRN PO 01/09/25 10:30 01/30/25 03:57 650 MG Ferrous Sulfate 325 mg BIDWM PO 01/10/25 18:00 01/30/25 08:28 325 MG Sevelamer HCl 800 mg TIDWM PO 01/10/25 18:00 01/30/25 11:48 800 MG Gabapentin 100 mg TID PO 01/11/25 14:00 01/30/25 05:28 100 MG Emollient Ointment 1 applic PRN PRN TOP 01/14/25 10:30 Albumin Human 100 ml @ 100 mls/hr PRN PRN IV 01/15/25 10:30 01/29/25 22:17 100 MLS/HR Multivit/Ca Carb/ B Cmplx/FA/Prenat 1 tab DAILY PO 01/16/25 10:00 01/30/25 10:08 1 TAB Amiodarone HCl 400 mg Q12HR PO 01/18/25 22:00 01/30/25 10:09 400 MG Lorazepam 1 mg Q2HP PRN IV 01/19/25 12:00 01/19/25 12:29 1 MG Phenylephrine HCl 80 mg/Sodium Chloride 250 ml @ 7.5 mls/hr Q24H IV 01/19/25 12:00 Hydrocortisone Sodium Succinate 100 mg Q8HR IV 01/19/25 22:00 01/30/25 05:28 100 MG Polyethylene Glycol 17 gm DAILYPRN PRN PO 01/21/25 12:15 01/25/25 09:59 17 GM Sennosides 8.6 mg QHSP PRN PO 01/21/25 12:15 01/24/25 23:56 8.6 MG Norepinephrine Bitartrate 32 mg/ Sodium Chloride 250 ml @ 0.938 mls/ hr Q24H IV 01/21/25 12:15 01/29/25 14:58 3.047 MLS/HR Midodrine 10 mg TID@0600,1200,1800 PO 01/24/25 06:00 01/30/25 11:48 10 MG Morphine Sulfate 2 mg Q2HPRN PRN IV 01/28/25 15:30 01/28/25 14:55 2 MG Nystatin 5 ml QID MT 01/29/25 12:00 01/30/25 11:48 5 ML Examination: GENERAL:Abnormal, LUNGS:Abnormal, CVS:Normal, MSK:Abnormal, NEURO:Normal laboratory and microbiology Laboratory Tests 01/30/25 04:42 Test 01/30/25 04:42 Range/Units Serum Glucose 212 H 74-106 mg/dL Microbiology Date/Time Source Procedure Growth Status 01/17/25 17:30 Blood Blood Culture - Final NO GROWTH AFTER 5 DAYS OF INCUBATION. Complete 01/10/25 12:45 Ascities Fluid Gram Stain - Final Complete 01/10/25 12:45 Ascities Fluid Body Fluid Culture - Final Complete 01/09/25 14:00 Sputum Gram Stain - Final Complete 01/09/25 14:00 Respiratory Culture - Final Presumptive Lisa albicans Complete 01/09/25 05:00 Nose MRSA Screen - Final Complete Problem List/Assessment/Plan Problem List/Assessment/Plan End-stage renal disease on hemodialysis Heart failure with recent pericardial drainage due to recurrent pericardial effusions decompensated cirrhosis Diabetes Shock cardiogenic vs septic hyperkalemia VRE bacteremia recs HD tomorrow on levophed UF as tolerated-not tolerating well Plan discussed with: Other My Orders My Orders Orders - LARISA MCKEON MD Procedure Category Date Status Time Hemodialysis Orders ORDERS 01/29/25 Transmitted 18:14 Dietary Evaluation Review Comments: 1) Nepro carb steady 240ml BID (ordered per [facility] protocol) 2) Neprhro-Kaela 1 tab daily 3) Continue current plan of care Expected Outcomes/Goals: To meet >75% estimated needs Fu 3-5 days LARISA MCKEON MD January 30, 2025 16:18
--- NOTE | 2025-01-30 18:04 | DVHPN2 ---
Progress Note - Dictate Date Seen: January 30, 2025 Medical Necessity Reason Pt with a Central, PICC or Fol: Yes The following are medically ne: Central Line Subjective Patient was seen and evaluated in follow up in the ICU. Patient is on 2 LPM NC. Cuff pressures are now taken on the right upper extremity per night nurse. Patient is still requiring vasopressors. HGB 7.7, HCT 23, BUN 27, FULFILLMENT ASSOCIATE 2.02, GLUC 202. vital signs Vital Sign Date Time Temp Pulse Resp B/P (MAP) Pulse Ox O2 Delivery O2 Flow Rate FiO2 01/30/25 13:45 92 13 123/41 (68) 100 01/30/25 12:00 Nasal Cannula* 2 28 01/30/25 08:00 97.6 97.6 Total Intake and Output 01/29/25 01/29/25 01/30/25 15:00 23:00 07:00 Intake Total 26.954 ml 228.359 ml 264.611 ml Balance 26.954 ml 228.359 ml 264.611 ml medications Current Medications Medications Dose Ordered Sig/Honey Route Start Time Stop Time Status Last Admin Dose Admin Diagnostic Test (Pha) 1 strip Q6HR 01/09/25 06:00 01/30/25 11:53 1 STRIP Insulin Human Regular Q6HR SC 01/09/25 06:00 01/30/25 11:52 4 UNITS Dextrose 50 ml UD PRN IV 01/09/25 00:30 01/18/25 10:40 50 ML Pantoprazole Sodium 40 mg DAILY IV 01/10/25 10:00 01/30/25 10:08 40 MG Ondansetron HCl 4 mg Q8HPRN PRN IV 01/09/25 10:30 01/30/25 00:31 4 MG Acetaminophen 650 mg Q6HP PRN PO 01/09/25 10:30 01/30/25 03:57 650 MG Ferrous Sulfate 325 mg BIDWM PO 01/10/25 18:00 01/30/25 08:28 325 MG Sevelamer HCl 800 mg TIDWM PO 01/10/25 18:00 01/30/25 11:48 800 MG Gabapentin 100 mg TID PO 01/11/25 14:00 01/30/25 05:28 100 MG Emollient Ointment 1 applic PRN PRN TOP 01/14/25 10:30 Albumin Human 100 ml @ 100 mls/hr PRN PRN IV 01/15/25 10:30 01/29/25 22:17 100 MLS/HR Multivit/Ca Carb/ B Cmplx/FA/Prenat 1 tab DAILY PO 01/16/25 10:00 01/30/25 10:08 1 TAB Amiodarone HCl 400 mg Q12HR PO 01/18/25 22:00 01/30/25 10:09 400 MG Lorazepam 1 mg Q2HP PRN IV 01/19/25 12:00 01/19/25 12:29 1 MG Phenylephrine HCl 80 mg/Sodium Chloride 250 ml @ 7.5 mls/hr Q24H IV 01/19/25 12:00 Hydrocortisone Sodium Succinate 100 mg Q8HR IV 01/19/25 22:00 01/30/25 05:28 100 MG Polyethylene Glycol 17 gm DAILYPRN PRN PO 01/21/25 12:15 01/25/25 09:59 17 GM Sennosides 8.6 mg QHSP PRN PO 01/21/25 12:15 01/24/25 23:56 8.6 MG Norepinephrine Bitartrate 32 mg/ Sodium Chloride 250 ml @ 0.938 mls/ hr Q24H IV 01/21/25 12:15 01/29/25 14:58 3.047 MLS/HR Midodrine 10 mg TID@0600,1200,1800 PO 01/24/25 06:00 01/30/25 11:48 10 MG Morphine Sulfate 2 mg Q2HPRN PRN IV 01/28/25 15:30 01/28/25 14:55 2 MG Nystatin 5 ml QID MT 01/29/25 12:00 01/30/25 11:48 5 ML objective GENERAL: Alert and oriented x 3. No acute distress. EYES: PERRL, EOMI. Anicteric. HENT: Moist mucous membranes. LUNGS: Clear to auscultation bilaterally. CARDIOVASCULAR: Regular rate and rhythm. Systolic murmur. ABDOMEN: Ascites, large distended abdomen. EXTREMITIES: No edema. NEUROLOGIC: No focal neurological deficits. SKIN: Mottling to bilateral lower extremities. Bilateral feet cool to touch. laboratory and microbiology Laboratory Tests 01/30/25 04:42 Test 5/7/25 04:42 Range/Units Serum Glucose 212 H 74-106 mg/dL Problem List Atrial tachycardia, now in junctional rhythm. NSTEMI, likely type II. Chronic HFpEF with right-sided heart failure, NYHA class III. History of atrial fibrillation (on amiodarone and Eliquis). Chronic pericardial effusion. History of hypertension. Hyperlipidemia. Decompensated liver cirrhosis with refractory ascites. Ascites. Type 2 diabetes mellitus. End-stage renal disease on hemodialysis. Acute hepatic/metabolic/toxic encephalopathy. Acute hypoxic respiratory failure. Septic shock due to Enterococcus faecium. Blindness. Hearing loss. Assessment/Plan Continued all current supportive medical care. Amiodarone. Morphine for pain management. GI prophylactics. Vasopressors for hemodynamic support. Additional plan as per the hospital course. Critical care time of 45 minutes provided to include time spent evaluation of patient at bedside, when appropriate patient/family education for diagnosis, treatment plan, review of pertinent medical information and discussion of care with specialty providers and PCP. Dietary Evaluation Review Comments: 1) Nepro carb steady 240ml BID (ordered per [facility] protocol) 2) Neprhro-Kaela 1 tab daily 3) Continue current plan of care Expected Outcomes/Goals: To meet >75% estimated needs Fu 3-5 days Plan discussed with: Patient SOREN MARTINEZ MD January 30, 2025 14:07
--- NOTE | 2025-01-30 23:06 | DVHPN2 ---
Progress Note - Dictate Date Seen: January 30, 2025 Medical Necessity Reason Pt with a Central, PICC or Fol: Yes The following are medically ne: Central Line Subjective Patient seen and examined at bedside. Remains on supplemental oxygen Overnight events reviewed. vital signs Vital Sign Date Time Temp Pulse Resp B/P (MAP) Pulse Ox O2 Delivery O2 Flow Rate FiO2 01/30/25 20:45 68 6 109/39 (62) 96 112/53 (72) 01/30/25 20:00 Nasal Cannula* 2 28 01/30/25 20:00 97.1 97.1 Total Intake and Output 01/29/25 01/29/25 01/30/25 15:00 23:00 07:00 Intake Total 26.954 ml 228.359 ml 264.611 ml Balance 26.954 ml 228.359 ml 264.611 ml medications Current Medications Medications Dose Ordered Sig/Honey Route Start Time Stop Time Status Last Admin Dose Admin Diagnostic Test (Pha) 1 strip Q6HR 01/09/25 06:00 01/30/25 18:20 1 STRIP Insulin Human Regular Q6HR SC 01/09/25 06:00 01/30/25 11:52 4 UNITS Dextrose 50 ml UD PRN IV 01/09/25 00:30 01/18/25 10:40 50 ML Pantoprazole Sodium 40 mg DAILY IV 01/10/25 10:00 01/30/25 10:08 40 MG Ondansetron HCl 4 mg Q8HPRN PRN IV 01/09/25 10:30 01/30/25 20:04 4 MG Acetaminophen 650 mg Q6HP PRN PO 01/09/25 10:30 01/30/25 03:57 650 MG Ferrous Sulfate 325 mg BIDWM PO 01/10/25 18:00 01/30/25 18:14 325 MG Sevelamer HCl 800 mg TIDWM PO 01/10/25 18:00 01/30/25 18:14 800 MG Gabapentin 100 mg TID PO 01/11/25 14:00 01/30/25 05:28 100 MG Emollient Ointment 1 applic PRN PRN TOP 01/14/25 10:30 Albumin Human 100 ml @ 100 mls/hr PRN PRN IV 01/15/25 10:30 01/29/25 22:17 100 MLS/HR Multivit/Ca Carb/ B Cmplx/FA/Prenat 1 tab DAILY PO 01/16/25 10:00 01/30/25 10:08 1 TAB Amiodarone HCl 400 mg Q12HR PO 01/18/25 22:00 01/30/25 21:45 400 MG Lorazepam 1 mg Q2HP PRN IV 01/19/25 12:00 01/19/25 12:29 1 MG Phenylephrine HCl 80 mg/Sodium Chloride 250 ml @ 7.5 mls/hr Q24H IV 01/19/25 12:00 Hydrocortisone Sodium Succinate 100 mg Q8HR IV 01/19/25 22:00 01/30/25 16:55 100 MG Polyethylene Glycol 17 gm DAILYPRN PRN PO 01/21/25 12:15 01/25/25 09:59 17 GM Sennosides 8.6 mg QHSP PRN PO 01/21/25 12:15 01/24/25 23:56 8.6 MG Norepinephrine Bitartrate 32 mg/ Sodium Chloride 250 ml @ 0.938 mls/ hr Q24H IV 01/21/25 12:15 01/29/25 14:58 3.047 MLS/HR Midodrine 10 mg TID@0600,1200,1800 PO 01/24/25 06:00 01/30/25 18:14 10 MG Morphine Sulfate 2 mg Q2HPRN PRN IV 01/28/25 15:30 01/30/25 19:54 2 MG Nystatin 5 ml QID MT 01/29/25 12:00 01/30/25 18:14 5 ML objective Gen.: Patient lying in bed in no apparent distress. On supplemental oxygen. Head: Normocephalic, atraumatic. Eyes: EOMI/PERRLA. Ears: Normal hearing. Normal anatomy. Neck/trachea: Trachea midline, supple. Nose: Normal external anatomy. Mouth: Moist mucous membranes. Chest: Decreased air entry bilaterally. No wheezing or rhonchi. Cardiovascular: Positive S1, positive S2. Regular rate and rhythm. Abdomen: Positive bowel sounds in all 4 quadrants. Soft, non-tender, non- distended. : Deferred. Rectal: Deferred. Skin: Warm, dry. Intact. Extremities: 2+ radial pulses bilaterally. No lower extremity edema. Neuro: Awake, alert, oriented x3. No gross motor or sensory deficits. Cranial nerves II through XII intact. Gait not assessed. laboratory and microbiology Laboratory Tests 01/30/25 04:42 Test 01/30/25 04:42 Range/Units Serum Glucose 212 H 74-106 mg/dL Assessment/Plan Impression: Acute hypoxic respiratory failure Dependence on supplemental oxygen End-stage renal disease, on hemodialysis Heart failure with recent pericardial window due to recurrent pericardial effusions Refractory ascites due to cirrhosis with frequent paracentesis Diabetes mellitus Non-ST elevation [place] Events: Patient seen and examined at bedside. Low oxygen requirements On 2 liters per minute nasal cannula Taper O2 as tolerated Remains on pressors for hemodynamic support Levophed 9 mcg/min Titrate to keep mean arterial pressure greater than 65 mmHg. Continue midodrine - monitor BP. Continue IV steroids Incentive spirometry Amiodarone PO Accu-Cheks, ISS. Monitor hemoglobin Iron supplementation Pain control Avoid oversedation HD per Nephrology Monitor renal function Protonix for GI prophylaxis LTAC evaluation. S/p paracentesis on 01/13/25- 3.3 liters of ascitic fluid removed Received albumin post paracentesis - See separate procedure note for details. S/p paracentesis on 01/10/25 Labs and imaging reviewed. Rest of plan as noted below. Plan: Supplemental oxygen Titrate to keep O2 sats above 92%. Head of bed elevation Aspiration precautions IV steroids Continue midodrine Pressors as necessary for hemodynamic support Titrate to keep mean arterial pressure greater than 65 mmHg. Accu-Cheks, ISS Hemodialysis per Nephrology Nephrology recommendations appreciated. Monitor renal function. Monitor electrolytes. Supplement as necessary. Monitor ins and outs. GI prophylaxis - Protonix DVT prophylaxis. Prognosis: Poor given patient's multiple co-morbidities. Condition: Critical Rest of plan per hospitalist and other consultants. A total of 35 minutes of critical care time was spent reviewing the patient record, examining the patient, making a diagnostic and therapeutic plan, discussing this plan with the medical personnel, following up on diagnostic studies and following the patient for clinical stability excluding any and all procedures. At least 50% of this time was spent in direct, [id number] contact. Thank you, ELLIE Moreland, for allowing me to participate in this patient's care. Further recommendations will depend on the patient's clinical course. Please do not hesitate to contact me if you have any questions or concerns. This medical document was created using an electronic medical record system with [employer] computerized dictation system. Although these documentations are being carefully reviewed, there may still be some phonetic and typographical changes. The errors are purely typographical, due to imperfection on the software program, and do not reflect any compromise in the patient's medical care. Dietary Evaluation Review Comments: 1) Nepro carb steady 240ml BID (ordered per [facility]NS protocol) 2) Neprhro-Kaela 1 tab daily 3) Continue current plan of care Expected Outcomes/Goals: To meet >75% estimated needs Fu 3-5 days Plan discussed with: Other (LAVERNE Ceja) Critical Care Time(min): 35 MAYE HEATH MD January 30, 2025 23:06
[2025-01-31] VITALS (95 sets, daily range): BP systolic 91–160; BP diastolic 23–62; PULSE 64–112; RESP 5–20; TEMP 96.4–98.3; O2SAT 86–100
[2025-01-31 05:14] LABS: Basophils # (auto) 0 10 ^3/uL (0-0.2); Basophils % (auto) 0.1 % (0.0-2.0); Eosinophils # (auto) 0 10 ^3/uL (0-0.8); Hematocrit 23.9 % (36.0-46.0); Hemoglobin 7.9 g/dL (12.2-16.2); Lymphocytes # (auto) 0.4 10 ^3/uL (0.4-5.4); Lymphocytes % (auto) 4.8 % (10.0-50.0); Mean Corpuscular Hemoglobin 32.3 pg (28.0-32.0); Mean Corpuscular Volume 97.7 fL (80.0-100.0); Monocytes # (auto) 1.2 10 ^3/uL (0-1.3); Monocytes % (auto) 16.3 % (0.0-12.0); Neutrophils # (auto) 5.9 10 ^3/uL (1.6-8.6); Neutrophils % (auto) 78.8 % (37.0-80.0); Nucleated Red Blood Cells % 0.6 %; Platelet Count (auto) 52 10^3/uL (140-450); Red Blood Cells 2.45 10^6/uL (4.0-5.20); Red Cell Distribution Width 16.3 % (11.8-14.3); White Blood Cell 7.5 10^3/uL (4.4-10.8)
[2025-01-31 05:27] LABS: Alanine Aminotransferase 18 U/L (7-40); Anion Gap 13 (5-15); BUN/Creatinine Ratio 13.3 (10.0-20.0); Calcium 10.1 mg/dL (8.7-10.4); Carbon Dioxide 27 mmol/L (20-31); Potassium 3.8 mmol/L (3.5-5.1); Sodium 137 mmol/L (136-145)
[2025-01-31 05:30] LABS: Albumin 3.9 g/dL (3.2-4.8)
[2025-01-31 05:38] LABS: Alkaline Phosphatase 116 U/L (46-116); Aspartate Aminotransferase 11 U/L (13-40); Bilirubin, Total 1.6 mg/dL (0.2-1.0); Blood Urea Nitrogen 38 mg/dL (9-23); Chloride 97 mmol/L (98-107); Glucose 265 mg/dL (74-106); Total Protein 5.3 g/dL (5.7-8.2)
[2025-01-31 09:35] LABS: Base Excess -0.2 mmol/L (-2.0-3.0)
--- NOTE | 2025-01-31 09:55 | DVHPN2 ---
Subjective Patient denies any symptoms Reviewed: Care Plan, H&P, Labs, Medications, Previous Orders, Radiology, Other (Consultations) Changes from previous H/P or p: No Changes General: Per HPI Objective Vitals Vital Signs Date Time Temp Pulse Resp B/P (MAP) Pulse Ox O2 Delivery O2 Flow Rate FiO2 01/31/25 06:30 67 7 115/55 (75) 99 109/52 (71) 01/31/25 05:49 Nasal Cannula* 2 28 01/31/25 04:00 97.7 97.7 Intake/Output Intake and Output 01/31/25 07:00 Intake Total 439.000 ml Output Total 0 ml Balance 439.000 ml Intake Oral 360 ml IV Total 79.000 ml Output Urine Total 0 ml General Appearance: Alert, Oriented X3, Cooperative, moderate distress HEENT: Atraumatic, Other (Blind) Lungs: Other (Decreased air entry bilateral) Cardiovascular: Normal S1, Normal S2, Other (Tracking failure) Abdomen: Normal bowel sounds, Soft, No tenderness, Other (Resolved ascites after paracentesis of almost 4 liters) Extremities: Other (Left upper extremity AV fistula with good bruit and thrill; dusky extremities) Neuro: Normal speech, Cranial nerves 3-12 NL, Other (Reviewed) Skin: Dry, Intact Psych/Mental Status: Mental status NL, Mood NL Medications Current Medications Medications Dose Ordered Sig/Honey Route Start Time Stop Time Status Last Admin Dose Admin Diagnostic Test (Pha) 1 strip Q6HR 01/09/25 06:00 01/31/25 05:36 1 STRIP Insulin Human Regular Q6HR SC 01/09/25 06:00 01/31/25 05:35 4 UNITS Dextrose 50 ml UD PRN IV 01/09/25 00:30 01/18/25 10:40 50 ML Pantoprazole Sodium 40 mg DAILY IV 01/10/25 10:00 01/30/25 10:08 40 MG Ondansetron HCl 4 mg Q8HPRN PRN IV 01/09/25 10:30 01/30/25 20:04 4 MG Acetaminophen 650 mg Q6HP PRN PO 01/09/25 10:30 01/30/25 03:57 650 MG Ferrous Sulfate 325 mg BIDWM PO 01/10/25 18:00 01/30/25 18:14 325 MG Sevelamer HCl 800 mg TIDWM PO 01/10/25 18:00 01/30/25 18:14 800 MG Gabapentin 100 mg TID PO 01/11/25 14:00 01/30/25 05:28 100 MG Emollient Ointment 1 applic PRN PRN TOP 01/14/25 10:30 Albumin Human 100 ml @ 100 mls/hr PRN PRN IV 01/15/25 10:30 01/29/25 22:17 100 MLS/HR Multivit/Ca Carb/ B Cmplx/FA/Prenat 1 tab DAILY PO 01/16/25 10:00 01/30/25 10:08 1 TAB Amiodarone HCl 400 mg Q12HR PO 01/18/25 22:00 01/30/25 21:45 400 MG Lorazepam 1 mg Q2HP PRN IV 01/19/25 12:00 01/19/25 12:29 1 MG Phenylephrine HCl 80 mg/Sodium Chloride 250 ml @ 7.5 mls/hr Q24H IV 01/19/25 12:00 Hydrocortisone Sodium Succinate 100 mg Q8HR IV 01/19/25 22:00 01/30/25 16:55 100 MG Polyethylene Glycol 17 gm DAILYPRN PRN PO 01/21/25 12:15 01/25/25 09:59 17 GM Sennosides 8.6 mg QHSP PRN PO 01/21/25 12:15 01/24/25 23:56 8.6 MG Norepinephrine Bitartrate 32 mg/ Sodium Chloride 250 ml @ 0.938 mls/ hr Q24H IV 01/21/25 12:15 01/29/25 14:58 3.047 MLS/HR Midodrine 10 mg TID@0600,1200,1800 PO 01/24/25 06:00 01/30/25 18:14 10 MG Morphine Sulfate 2 mg Q2HPRN PRN IV 01/28/25 15:30 01/31/25 02:25 2 MG Nystatin 5 ml QID MT 01/29/25 12:00 01/30/25 18:14 5 ML Laboratory Results Laboratory Tests 01/31/25 04:35 Chemistry Test 01/31/25 04:35 Albumin 3.9 g/dL (3.2-4.8) Calcium Level 10.1 mg/dL (8.7-10.4) Total Protein 5.3 g/dL (5.7-8.2) L LFT Test 01/31/25 04:35 Alanine Aminotransferase (ALT) 18 U/L (7-40) Alkaline Phosphatase 116 U/L (46-116) Aspartate Amino Transferase (AST) 11 U/L (13-40) L Total Bilirubin 1.6 mg/dL (0.2-1.0) H Blood Gas Results Test 01/31/25 09:25 Arterial Blood pH 7.379 (7.350-7.450) FiO2 % 28.0 Microbiology Microbiology Date/Time Source Procedure Growth Status 01/17/25 17:30 Blood Blood Culture - Final NO GROWTH AFTER 5 DAYS OF INCUBATION. Complete 01/10/25 12:45 Ascities Fluid Gram Stain - Final Complete 01/10/25 12:45 Ascities Fluid Body Fluid Culture - Final Complete 01/09/25 14:00 Sputum Gram Stain - Final Complete 01/09/25 14:00 Respiratory Culture - Final Presumptive Lisa albicans Complete 01/09/25 05:00 Nose MRSA Screen - Final Complete Labs and/or images reviewed: Labs reviewed by me, Image(s) reviewed by me Assessment/Plan Assessment/Plan Plan: -septic shock with VRE in the blood -cirrhosis with severe ascites -ESRD with hemodialysis -NSTEMI, probably type secondary to recent pericardiocentesis -legally blind -anemia of chronic disease - dyslipidemia -paroxysmal atrial fibrillation -possible infiltration of norepinephrine to right upper extremity with extravasation. Plan: Events: Arterial line placed by myself to right femoral artery. Continues to be on norepinephrine drip. Patient noted to be more encephalopathic this a.m.. Check ammonia level, ABG, ESR, CRP, procalcitonin level. -continue vasopressor therapy -pain management: Continue current regimen -nephrology consultation: Recommendations reviewed -repeat labs in a.m. Critical care time spent with patient discussing and formulating plan of care: 40 minutes. This does not include time spent performing procedures. This medical document was created using an electronic medical record system with [employer] system. Although this document has been carefully reviewed, there may still be some phonetic and typographical errors. These areas are purely typographical due to imperfections of the software programs, and do not reflect any compromise in the patient's medical care. Plan discussed with: Patient, Other (RN) My Orders Orders - PAVEL GUAMAN NP Procedure Category Date Status Time A-Line Insertion BD 01/30/25 Transmitted 10:43 Abg W/ Co-Ox RT 01/31/25 Logged 09:09 Erythrocyte LAB 01/31/25 Transmitted Sedimentation Rate 09:52 C-Reactive Protein LAB 01/31/25 Transmitted 09:52 Procalcitonin LAB 01/31/25 Transmitted 09:52 Date of Service: January 31, 2025 Billing Provider: PAVEL GUAMAN NP Common Visit Codes: [id number] CARE 30-74 MIN PAVEL GUAMAN NP January 31, 2025 09:55
[2025-01-31 10:49] LABS: Erythrocyte Sedimentation Rate 2 mm/hr (0-20)
--- NOTE | 2025-01-31 19:59 | DVHPN2 ---
Progress Note Date Seen: January 31, 2025 Medical Necessity Reason Pt with a Central, PICC or Fol: Yes The following are medically ne: Central Line Subjective Patient reports: Other (sleepy) Review of Systems: Deferred Objective vital signs Vital Sign Date Time Temp Pulse Resp B/P (MAP) Pulse Ox O2 Delivery O2 Flow Rate FiO2 01/31/25 18:30 106 11 104/43 (63) 98 01/31/25 18:00 Nasal Cannula* 2 28 01/31/25 16:00 98.3 98.3 Total Intake and Output 01/30/25 01/30/25 01/31/25 15:00 23:00 07:00 Intake Total 19.937 ml 272.345 ml 146.718 ml Output Total 0 ml 0 ml Balance 19.937 ml 272.345 ml 146.718 ml medications Current Medications Medications Dose Ordered Sig/Honey Route Start Time Stop Time Status Last Admin Dose Admin Diagnostic Test (Pha) 1 strip Q6HR 01/09/25 06:00 01/31/25 18:18 1 STRIP Insulin Human Regular Q6HR SC 01/09/25 06:00 01/31/25 05:35 4 UNITS Dextrose 50 ml UD PRN IV 01/09/25 00:30 01/18/25 10:40 50 ML Pantoprazole Sodium 40 mg DAILY IV 01/10/25 10:00 01/31/25 10:15 40 MG Ondansetron HCl 4 mg Q8HPRN PRN IV 01/09/25 10:30 01/30/25 20:04 4 MG Acetaminophen 650 mg Q6HP PRN PO 01/09/25 10:30 01/30/25 03:57 650 MG Ferrous Sulfate 325 mg BIDWM PO 01/10/25 18:00 01/30/25 18:14 325 MG Sevelamer HCl 800 mg TIDWM PO 01/10/25 18:00 01/30/25 18:14 800 MG Gabapentin 100 mg TID PO 01/11/25 14:00 01/30/25 05:28 100 MG Emollient Ointment 1 applic PRN PRN TOP 01/14/25 10:30 Albumin Human 100 ml @ 100 mls/hr PRN PRN IV 01/15/25 10:30 01/29/25 22:17 100 MLS/HR Multivit/Ca Carb/ B Cmplx/FA/Prenat 1 tab DAILY PO 01/16/25 10:00 01/30/25 10:08 1 TAB Amiodarone HCl 400 mg Q12HR PO 01/18/25 22:00 01/30/25 21:45 400 MG Lorazepam 1 mg Q2HP PRN IV 01/19/25 12:00 01/19/25 12:29 1 MG Phenylephrine HCl 80 mg/Sodium Chloride 250 ml @ 7.5 mls/hr Q24H IV 01/19/25 12:00 Hydrocortisone Sodium Succinate 100 mg Q8HR IV 01/19/25 22:00 01/30/25 16:55 100 MG Polyethylene Glycol 17 gm DAILYPRN PRN PO 01/21/25 12:15 01/25/25 09:59 17 GM Sennosides 8.6 mg QHSP PRN PO 01/21/25 12:15 01/24/25 23:56 8.6 MG Norepinephrine Bitartrate 32 mg/ Sodium Chloride 250 ml @ 0.938 mls/ hr Q24H IV 01/21/25 12:15 01/29/25 14:58 3.047 MLS/HR Midodrine 10 mg TID@0600,1200,1800 PO 01/24/25 06:00 01/30/25 18:14 10 MG Morphine Sulfate 2 mg Q2HPRN PRN IV 01/28/25 15:30 01/31/25 02:25 2 MG Nystatin 5 ml QID MT 01/29/25 12:00 01/30/25 18:14 5 ML Examination: GENERAL:Abnormal, LUNGS:Abnormal, NEURO:Abnormal laboratory and microbiology Laboratory Tests 01/31/25 04:35 Test 01/31/25 04:35 Range/Units Serum Glucose 265 H 74-106 mg/dL Microbiology Date/Time Source Procedure Growth Status 01/17/25 17:30 Blood Blood Culture - Final NO GROWTH AFTER 5 DAYS OF INCUBATION. Complete 01/10/25 12:45 Ascities Fluid Gram Stain - Final Complete 01/10/25 12:45 Ascities Fluid Body Fluid Culture - Final Complete 01/09/25 14:00 Sputum Gram Stain - Final Complete 01/09/25 14:00 Respiratory Culture - Final Presumptive Lisa albicans Complete 01/09/25 05:00 Nose MRSA Screen - Final Complete Problem List/Assessment/Plan Problem List/Assessment/Plan End-stage renal disease on hemodialysis Heart failure with recent pericardial drainage due to recurrent pericardial effusions decompensated cirrhosis Diabetes Shock cardiogenic vs septic hyperkalemia VRE bacteremia recs HD today,next HD tuesday on levophed UF as tolerated-not tolerating that well Plan discussed with: Other My Orders My Orders Orders - LARISA MCKEON MD Procedure Category Date Status Time Hemodialysis Orders ORDERS 01/31/25 Transmitted 08:39 Acute Hepatitis Panel LAB 01/31/25 In Process 10:53 Dietary Evaluation Review Comments: 1) Nepro carb steady 240ml BID (ordered per [facility] protocol) 2) Neprhro-Kaela 1 tab daily 3) Continue current plan of care Expected Outcomes/Goals: To meet >75% estimated needs Fu 3-5 days LARISA MCKEON MD January 31, 2025 19:59
--- NOTE | 2025-01-31 23:44 | DVHPN2 ---
Progress Note - Dictate Date Seen: January 31, 2025 Medical Necessity Reason Pt with a Central, PICC or Fol: Yes The following are medically ne: Central Line Subjective Patient was seen and evaluated in follow up in the ICU. Patient is on 2 LPM NC. Patient is refusing medication stating "no pills". HGB 7.9, HCT 23.9, CL 97, BUN 38, ENVIRONMENTAL SERVICES ASSISTANT 2.86, GLUC 204. vital signs Vital Sign Date Time Temp Pulse Resp B/P (MAP) Pulse Ox O2 Delivery O2 Flow Rate FiO2 01/31/25 06:30 67 7 115/55 (75) 99 109/52 (71) 01/31/25 05:49 Nasal Cannula* 2 28 01/31/25 04:00 97.7 97.7 Total Intake and Output 01/30/25 01/30/25 01/31/25 15:00 23:00 07:00 Intake Total 19.937 ml 272.345 ml 146.718 ml Output Total 0 ml 0 ml Balance 19.937 ml 272.345 ml 146.718 ml medications Current Medications Medications Dose Ordered Sig/Honey Route Start Time Stop Time Status Last Admin Dose Admin Diagnostic Test (Pha) 1 strip Q6HR 01/09/25 06:00 01/31/25 05:36 1 STRIP Insulin Human Regular Q6HR SC 01/09/25 06:00 01/31/25 05:35 4 UNITS Dextrose 50 ml UD PRN IV 01/09/25 00:30 01/18/25 10:40 50 ML Pantoprazole Sodium 40 mg DAILY IV 01/10/25 10:00 01/31/25 10:15 40 MG Ondansetron HCl 4 mg Q8HPRN PRN IV 01/09/25 10:30 01/30/25 20:04 4 MG Acetaminophen 650 mg Q6HP PRN PO 01/09/25 10:30 01/30/25 03:57 650 MG Ferrous Sulfate 325 mg BIDWM PO 01/10/25 18:00 01/30/25 18:14 325 MG Sevelamer HCl 800 mg TIDWM PO 01/10/25 18:00 01/30/25 18:14 800 MG Gabapentin 100 mg TID PO 01/11/25 14:00 01/30/25 05:28 100 MG Emollient Ointment 1 applic PRN PRN TOP 01/14/25 10:30 Albumin Human 100 ml @ 100 mls/hr PRN PRN IV 01/15/25 10:30 01/29/25 22:17 100 MLS/HR Multivit/Ca Carb/ B Cmplx/FA/Prenat 1 tab DAILY PO 01/16/25 10:00 01/30/25 10:08 1 TAB Amiodarone HCl 400 mg Q12HR PO 01/18/25 22:00 01/30/25 21:45 400 MG Lorazepam 1 mg Q2HP PRN IV 01/19/25 12:00 01/19/25 12:29 1 MG Phenylephrine HCl 80 mg/Sodium Chloride 250 ml @ 7.5 mls/hr Q24H IV 01/19/25 12:00 Hydrocortisone Sodium Succinate 100 mg Q8HR IV 01/19/25 22:00 01/30/25 16:55 100 MG Polyethylene Glycol 17 gm DAILYPRN PRN PO 01/21/25 12:15 01/25/25 09:59 17 GM Sennosides 8.6 mg QHSP PRN PO 01/21/25 12:15 01/24/25 23:56 8.6 MG Norepinephrine Bitartrate 32 mg/ Sodium Chloride 250 ml @ 0.938 mls/ hr Q24H IV 01/21/25 12:15 01/29/25 14:58 3.047 MLS/HR Midodrine 10 mg TID@0600,1200,1800 PO 01/24/25 06:00 01/30/25 18:14 10 MG Morphine Sulfate 2 mg Q2HPRN PRN IV 01/28/25 15:30 01/31/25 02:25 2 MG Nystatin 5 ml QID MT 01/29/25 12:00 01/30/25 18:14 5 ML objective GENERAL: Alert and oriented x 3. No acute distress. EYES: PERRL, EOMI. Anicteric. HENT: Moist mucous membranes. LUNGS: Clear to auscultation bilaterally. CARDIOVASCULAR: Regular rate and rhythm. Systolic murmur. ABDOMEN: Ascites, large distended abdomen. EXTREMITIES: No edema. NEUROLOGIC: No focal neurological deficits. SKIN: Mottling to bilateral lower extremities. Bilateral feet cool to touch. laboratory and microbiology Laboratory Tests 01/31/25 04:35 Test 01/31/25 04:35 Range/Units Serum Glucose 265 H 74-106 mg/dL Problem List Atrial tachycardia, now in junctional rhythm. NSTEMI, likely type II. Chronic HFpEF with right-sided heart failure, NYHA class III. History of atrial fibrillation (on amiodarone and Eliquis). Chronic pericardial effusion. History of hypertension. Hyperlipidemia. Decompensated liver cirrhosis with refractory ascites. Ascites. Type 2 diabetes mellitus. End-stage renal disease on hemodialysis. Acute hepatic/metabolic/toxic encephalopathy. Acute hypoxic respiratory failure. Septic shock due to Enterococcus faecium. Blindness. Hearing loss. Assessment/Plan Continued all current supportive medical care. Amiodarone. Morphine for pain management. GI prophylactics. Vasopressors for hemodynamic support. Additional plan as per the hospital course. Critical care time of 45 minutes provided to include time spent evaluation of patient at bedside, when appropriate patient/family education for diagnosis, treatment plan, review of pertinent medical information and discussion of care with specialty providers and PCP. Dietary Evaluation Review Comments: 1) Nepro carb steady 240ml BID (ordered per [facility] protocol) 2) Neprhro-Kaela 1 tab daily 3) Continue current plan of care Expected Outcomes/Goals: To meet >75% estimated needs Fu 3-5 days Plan discussed with: Patient SOREN MARTINEZ MD January 31, 2025 12:25
--- NOTE | 2025-01-31 23:52 | DVHPN2 ---
Progress Note - Dictate Date Seen: January 31, 2025 Medical Necessity Reason Pt with a Central, PICC or Fol: Yes The following are medically ne: Central Line Subjective Patient seen and examined at bedside. Remains on supplemental oxygen Overnight events reviewed. vital signs Vital Sign Date Time Temp Pulse Resp B/P (MAP) Pulse Ox O2 Delivery O2 Flow Rate FiO2 01/31/25 22:00 70 01/31/25 22:00 10 100 Nasal Cannula* 2 28 01/31/25 22:00 110/46 (67) 01/31/25 20:00 96.4 96.4 Total Intake and Output 01/30/25 01/30/25 01/31/25 15:00 23:00 07:00 Intake Total 19.937 ml 272.345 ml 146.718 ml Output Total 0 ml 0 ml Balance 19.937 ml 272.345 ml 146.718 ml medications Current Medications Medications Dose Ordered Sig/Honey Route Start Time Stop Time Status Last Admin Dose Admin Diagnostic Test (Pha) 1 strip Q6HR 01/09/25 06:00 01/31/25 18:18 1 STRIP Insulin Human Regular Q6HR SC 01/09/25 06:00 01/31/25 05:35 4 UNITS Dextrose 50 ml UD PRN IV 01/09/25 00:30 01/18/25 10:40 50 ML Pantoprazole Sodium 40 mg DAILY IV 01/10/25 10:00 01/31/25 10:15 40 MG Ondansetron HCl 4 mg Q8HPRN PRN IV 01/09/25 10:30 01/30/25 20:04 4 MG Acetaminophen 650 mg Q6HP PRN PO 01/09/25 10:30 01/30/25 03:57 650 MG Ferrous Sulfate 325 mg BIDWM PO 01/10/25 18:00 01/30/25 18:14 325 MG Sevelamer HCl 800 mg TIDWM PO 01/10/25 18:00 01/30/25 18:14 800 MG Gabapentin 100 mg TID PO 01/11/25 14:00 01/31/25 22:04 100 MG Emollient Ointment 1 applic PRN PRN TOP 01/14/25 10:30 Albumin Human 100 ml @ 100 mls/hr PRN PRN IV 01/15/25 10:30 01/29/25 22:17 100 MLS/HR Multivit/Ca Carb/ B Cmplx/FA/Prenat 1 tab DAILY PO 01/16/25 10:00 01/30/25 10:08 1 TAB Amiodarone HCl 400 mg Q12HR PO 01/18/25 22:00 01/31/25 22:03 400 MG Lorazepam 1 mg Q2HP PRN IV 01/19/25 12:00 01/19/25 12:29 1 MG Phenylephrine HCl 80 mg/Sodium Chloride 250 ml @ 7.5 mls/hr Q24H IV 01/19/25 12:00 Hydrocortisone Sodium Succinate 100 mg Q8HR IV 01/19/25 22:00 01/31/25 22:16 100 MG Polyethylene Glycol 17 gm DAILYPRN PRN PO 01/21/25 12:15 01/25/25 09:59 17 GM Sennosides 8.6 mg QHSP PRN PO 01/21/25 12:15 01/24/25 23:56 8.6 MG Norepinephrine Bitartrate 32 mg/ Sodium Chloride 250 ml @ 0.938 mls/ hr Q24H IV 01/21/25 12:15 01/29/25 14:58 3.047 MLS/HR Midodrine 10 mg TID@0600,1200,1800 PO 01/24/25 06:00 01/30/25 18:14 10 MG Morphine Sulfate 2 mg Q2HPRN PRN IV 01/28/25 15:30 01/31/25 02:25 2 MG Nystatin 5 ml QID MT 01/29/25 12:00 01/31/25 22:03 5 ML objective Gen.: Patient lying in bed in no apparent distress. On supplemental oxygen. Head: Normocephalic, atraumatic. Eyes: EOMI/PERRLA. Ears: Normal hearing. Normal anatomy. Neck/trachea: Trachea midline, supple. Nose: Normal external anatomy. Mouth: Moist mucous membranes. Chest: Decreased air entry bilaterally. No wheezing or rhonchi. Cardiovascular: Positive S1, positive S2. Regular rate and rhythm. Abdomen: Positive bowel sounds in all 4 quadrants. Soft, non-tender, non- distended. : Deferred. Rectal: Deferred. Skin: Warm, dry. Intact. Extremities: 2+ radial pulses bilaterally. No lower extremity edema. Neuro: Awake, alert, oriented x3. No gross motor or sensory deficits. Cranial nerves II through XII intact. Gait not assessed. laboratory and microbiology Laboratory Tests 01/31/25 04:35 Test 01/31/25 04:35 Range/Units Serum Glucose 265 H 74-106 mg/dL Assessment/Plan Impression: Acute hypoxic respiratory failure Dependence on supplemental oxygen End-stage renal disease, on hemodialysis Heart failure with recent pericardial window due to recurrent pericardial effusions Refractory ascites due to cirrhosis with frequent paracentesis Diabetes mellitus Non-ST elevation CT Events: Patient seen and examined at bedside. Low oxygen requirements On 2 liters per minute nasal cannula Taper O2 as tolerated Remains on pressors for hemodynamic support On Levophed Titrate to keep mean arterial pressure greater than 65 mmHg. On midodrine for blood pressure. Continue IV steroids Incentive spirometry Amiodarone PO HD per Nephrology - hemodialysis today Nephrology recs appreciated Monitor renal function Accu-Cheks, ISS. Monitor hemoglobin Iron supplementation Pain control Avoid oversedation Protonix for GI prophylaxis LTAC evaluation. S/p paracentesis on 01/13/25- 3.3 liters of ascitic fluid removed Received albumin post paracentesis - See separate procedure note for details. S/p paracentesis on 01/10/25 Labs and imaging reviewed. Rest of plan as noted below. Plan: Supplemental oxygen Titrate to keep O2 sats above 92%. Head of bed elevation Aspiration precautions IV steroids Pressors as necessary for hemodynamic support Titrate to keep mean arterial pressure greater than 65 mmHg. Accu-Cheks, ISS Hemodialysis per Nephrology Nephrology recommendations appreciated. Monitor renal function. Monitor electrolytes. Supplement as necessary. Monitor ins and outs. GI prophylaxis - Protonix DVT prophylaxis. Prognosis: Poor given patient's multiple co-morbidities. Condition: Critical Rest of plan per hospitalist and other consultants. A total of 35 minutes of critical care time was spent reviewing the patient record, examining the patient, making a diagnostic and therapeutic plan, discussing this plan with the medical personnel, following up on diagnostic studies and following the patient for clinical stability excluding any and all procedures. At least 50% of this time was spent in direct, [id number] contact. Thank you, ELLIE Moreland, for allowing me to participate in this patient's care. Further recommendations will depend on the patient's clinical course. Please do not hesitate to contact me if you have any questions or concerns. This medical document was created using an electronic medical record system with [employer] computerized dictation system. Although these documentations are being carefully reviewed, there may still be some phonetic and typographical changes. The errors are purely typographical, due to imperfection on the software program, and do not reflect any compromise in the patient's medical care. Dietary Evaluation Review Comments: 1) Nepro carb steady 240ml BID (ordered per ONS protocol) 2) Neprhro-Kaela 1 tab daily 3) Continue current plan of care Expected Outcomes/Goals: To meet >75% estimated needs Fu 3-5 days Plan discussed with: Patient, Other (RN) Critical Care Time(min): 35 MAYE HEATH MD January 31, 2025 23:52
[2025-02-01] VITALS (102 sets, daily range): BP systolic 95–137; BP diastolic 14–55; PULSE 68–83; RESP 7–29; TEMP 98.1–98.6; O2SAT 92–100
[2025-02-01 05:00] LABS: Basophils # (auto) 0 10 ^3/uL (0-0.2); Eosinophils # (auto) 0 10 ^3/uL (0-0.8); Mean Corpuscular Hgb Conc. 32.9 g/dL (32.0-36.0); Monocytes # (auto) 0.8 10 ^3/uL (0-1.3)
[2025-02-01 05:04] LABS: Basophils % (auto) 0.1 % (0.0-2.0); Eosinophils % (auto) 0.1 % (0.0-7.0); Hematocrit 24.8 % (36.0-46.0); Hemoglobin 8.1 g/dL (12.2-16.2); Lymphocytes # (auto) 0.4 10 ^3/uL (0.4-5.4); Mean Corpuscular Volume 97.2 fL (80.0-100.0); Monocytes % (auto) 10.2 % (0.0-12.0); Neutrophils # (auto) 6.2 10 ^3/uL (1.6-8.6); Neutrophils % (auto) 84.6 % (37.0-80.0); Platelet Count (auto) 63 10^3/uL (140-450); Red Blood Cells 2.55 10^6/uL (4.0-5.20); Red Cell Distribution Width 16.3 % (11.8-14.3); White Blood Cell 7.4 10^3/uL (4.4-10.8)
[2025-02-01 05:20] LABS: Alanine Aminotransferase 20 U/L (7-40); Anion Gap 13 (5-15); BUN/Creatinine Ratio 11.8 (10.0-20.0); Calcium 9.1 mg/dL (8.7-10.4); Carbon Dioxide 29 mmol/L (20-31); Chloride 99 mmol/L (98-107); Potassium 3.8 mmol/L (3.5-5.1); Sodium 141 mmol/L (136-145)
[2025-02-01 05:21] LABS: Albumin 3.7 g/dL (3.2-4.8); Aspartate Aminotransferase 22 U/L (13-40)
[2025-02-01 05:51] LABS: Alkaline Phosphatase 142 U/L (46-116); Bilirubin, Total 1.6 mg/dL (0.2-1.0); Blood Urea Nitrogen 28 mg/dL (9-23); Glucose 270 mg/dL (74-106); Total Protein 5.1 g/dL (5.7-8.2)
--- NOTE | 2025-02-01 07:58 | DVHPN2 ---
Subjective Patient denies any symptoms Reviewed: Care Plan, H&P, Labs, Medications, Previous Orders, Radiology, Other (Consultations) Changes from previous H/P or p: No Changes General: Per HPI Objective Vitals Vital Signs Date Time Temp Pulse Resp B/P (MAP) Pulse Ox O2 Delivery O2 Flow Rate FiO2 02/01/25 07:45 77 8 114/46 (68) 98 02/01/25 07:44 Nasal Cannula* 2 28 02/01/25 04:00 98.1 98.1 Intake/Output Intake and Output 02/01/25 07:00 Intake Total 210.624 ml Output Total 0 ml Balance 210.624 ml Intake Oral 100 ml IV Total 110.624 ml Output Urine Total 0 ml General Appearance: Alert, Oriented X3, Cooperative, moderate distress HEENT: Atraumatic, Other (Blind) Lungs: Other (Decreased air entry bilateral) Cardiovascular: Normal S1, Normal S2, Other (Tracking failure) Abdomen: Normal bowel sounds, Soft, No tenderness, Other (Resolved ascites after paracentesis of almost 4 liters) Extremities: Other (Left upper extremity AV fistula with good bruit and thrill; dusky extremities) Neuro: Normal speech, Cranial nerves 3-12 NL, Other (Reviewed) Skin: Dry, Intact Psych/Mental Status: Mental status NL, Mood NL Medications Current Medications Medications Dose Ordered Sig/Honey Route Start Time Stop Time Status Last Admin Dose Admin Diagnostic Test (Pha) 1 strip Q6HR 01/09/25 06:00 02/01/25 05:39 1 STRIP Insulin Human Regular Q6HR SC 01/09/25 06:00 02/01/25 05:39 4 UNITS Dextrose 50 ml UD PRN IV 01/09/25 00:30 01/18/25 10:40 50 ML Pantoprazole Sodium 40 mg DAILY IV 01/10/25 10:00 01/31/25 10:15 40 MG Ondansetron HCl 4 mg Q8HPRN PRN IV 01/09/25 10:30 01/30/25 20:04 4 MG Acetaminophen 650 mg Q6HP PRN PO 01/09/25 10:30 01/30/25 03:57 650 MG Ferrous Sulfate 325 mg BIDWM PO 01/10/25 18:00 01/30/25 18:14 325 MG Sevelamer HCl 800 mg TIDWM PO 01/10/25 18:00 01/30/25 18:14 800 MG Gabapentin 100 mg TID PO 01/11/25 14:00 02/01/25 05:31 100 MG Emollient Ointment 1 applic PRN PRN TOP 01/14/25 10:30 Albumin Human 100 ml @ 100 mls/hr PRN PRN IV 01/15/25 10:30 01/29/25 22:17 100 MLS/HR Multivit/Ca Carb/ B Cmplx/FA/Prenat 1 tab DAILY PO 01/16/25 10:00 01/30/25 10:08 1 TAB Amiodarone HCl 400 mg Q12HR PO 01/18/25 22:00 01/31/25 22:03 400 MG Lorazepam 1 mg Q2HP PRN IV 01/19/25 12:00 01/19/25 12:29 1 MG Phenylephrine HCl 80 mg/Sodium Chloride 250 ml @ 7.5 mls/hr Q24H IV 01/19/25 12:00 Hydrocortisone Sodium Succinate 100 mg Q8HR IV 01/19/25 22:00 01/31/25 22:16 100 MG Polyethylene Glycol 17 gm DAILYPRN PRN PO 01/21/25 12:15 01/25/25 09:59 17 GM Sennosides 8.6 mg QHSP PRN PO 01/21/25 12:15 01/24/25 23:56 8.6 MG Norepinephrine Bitartrate 32 mg/ Sodium Chloride 250 ml @ 0.938 mls/ hr Q24H IV 01/21/25 12:15 02/01/25 04:56 4.688 MLS/HR Midodrine 10 mg TID@0600,1200,1800 PO 01/24/25 06:00 02/01/25 05:31 10 MG Morphine Sulfate 2 mg Q2HPRN PRN IV 01/28/25 15:30 01/31/25 02:25 2 MG Nystatin 5 ml QID MT 01/29/25 12:00 02/01/25 05:31 5 ML Laboratory Results Laboratory Tests 02/01/25 04:33 Chemistry Test 02/01/25 04:33 Albumin 3.7 g/dL (3.2-4.8) Calcium Level 9.1 mg/dL (8.7-10.4) Total Protein 5.1 g/dL (5.7-8.2) L LFT Test 02/01/25 04:33 Alanine Aminotransferase (ALT) 20 U/L (7-40) Alkaline Phosphatase 142 U/L (46-116) H Aspartate Amino Transferase (AST) 22 U/L (13-40) Total Bilirubin 1.6 mg/dL (0.2-1.0) H Blood Gas Results Test 01/31/25 09:25 Arterial Blood pH 7.379 (7.350-7.450) FiO2 % 28.0 Microbiology Microbiology Date/Time Source Procedure Growth Status 01/17/25 17:30 Blood Blood Culture - Final NO GROWTH AFTER 5 DAYS OF INCUBATION. Complete 01/10/25 12:45 Ascities Fluid Gram Stain - Final Complete 01/10/25 12:45 Ascities Fluid Body Fluid Culture - Final Complete 01/09/25 14:00 Sputum Gram Stain - Final Complete 01/09/25 14:00 Respiratory Culture - Final Presumptive Lisa albicans Complete 01/09/25 05:00 Nose MRSA Screen - Final Complete Labs and/or images reviewed: Labs reviewed by me, Image(s) reviewed by me Assessment/Plan Assessment/Plan Plan: -septic shock with VRE in the blood -cirrhosis with severe ascites -ESRD with hemodialysis -NSTEMI, probably type secondary to recent pericardiocentesis -legally blind -anemia of chronic disease - dyslipidemia -paroxysmal atrial fibrillation -possible infiltration of norepinephrine to right upper extremity with extravasation. Plan: Events: Long discussion made with the patient's son, [id number], sister who was bedside yesterday. Patient had ammonia level, ABG, CRP, ESR ordered, all unremarkable. Patient continues to have the lethargy. Findings discussed with the patient's family. -continue vasopressor therapy, currently on norepinephrine 11 micrograms/minute -continue nystatin if patient is willing to take medication -stop hydrocortisone -pain management: Continue current regimen -nephrology consultation: Recommendations reviewed -repeat labs in a.m. Critical care time spent with patient discussing and formulating plan of care: 40 minutes. This does not include time spent performing procedures. This medical document was created using an electronic medical record system with [employer] system. Although this document has been carefully reviewed, there may still be some phonetic and typographical errors. These areas are purely typographical due to imperfections of the software programs, and do not reflect any compromise in the patient's medical care. Plan discussed with: Patient, Other (RN) My Orders Orders - PAVEL GUAMAN NP Procedure Category Date Status Time Abg W/ Co-Ox RT 01/31/25 Logged 09:09 Date of Service: February 01, 2025 Billing Provider: PAVEL GUAMAN NP Common Visit Codes: [id number] CARE 30-74 MIN PAVEL GUAMAN NP February 01, 2025 07:58
[2025-02-01] MEDS: AMIODARONE HCL 200 MG TAB ONE (08:58)
[2025-02-01] MEDS: AMIODARONE HCL 200 MG TAB PO SCH (09:01)
[2025-02-01 09:57] LABS: Hepatitis B Surface Antigen Negative (Negative)
[2025-02-01 10:16] LABS: Hepatitis A Ab IgM Negative; Hepatitis B Core IgM Negative (Negative); Hepatitis C Antibody Negative (Negative)
--- NOTE | 2025-02-01 10:58 | DVHPN2 ---
Progress Note Date Seen: February 01, 2025 Medical Necessity Reason Pt with a Central, PICC or Fol: Yes The following are medically ne: Central Line Subjective Patient reports: No new complaints Other Systems: Patient seen and examined by myself today in follow-up Objective vital signs Vital Sign Date Time Temp Pulse Resp B/P (MAP) Pulse Ox O2 Delivery O2 Flow Rate FiO2 02/01/25 10:30 77 17 115/48 (70) 100 02/01/25 09:38 Nasal Cannula* 2 28 02/01/25 08:00 98.2 98.2 Total Intake and Output 01/31/25 01/31/25 02/01/25 15:00 23:00 07:00 Intake Total 26.248 ml 47.109 ml 137.267 ml Output Total 0 ml Balance 26.248 ml 47.109 ml 137.267 ml medications Current Medications Medications Dose Ordered Sig/Honey Route Start Time Stop Time Status Last Admin Dose Admin Diagnostic Test (Pha) 1 strip Q6HR 01/09/25 06:00 02/01/25 05:39 1 STRIP Insulin Human Regular Q6HR SC 01/09/25 06:00 02/01/25 05:39 4 UNITS Dextrose 50 ml UD PRN IV 01/09/25 00:30 01/18/25 10:40 50 ML Pantoprazole Sodium 40 mg DAILY IV 01/10/25 10:00 02/01/25 08:59 40 MG Ondansetron HCl 4 mg Q8HPRN PRN IV 01/09/25 10:30 01/30/25 20:04 4 MG Acetaminophen 650 mg Q6HP PRN PO 01/09/25 10:30 01/30/25 03:57 650 MG Ferrous Sulfate 325 mg BIDWM PO 01/10/25 18:00 02/01/25 09:00 325 MG Sevelamer HCl 800 mg TIDWM PO 01/10/25 18:00 02/01/25 09:00 800 MG Gabapentin 100 mg TID PO 01/11/25 14:00 02/01/25 05:31 100 MG Emollient Ointment 1 applic PRN PRN TOP 01/14/25 10:30 Albumin Human 100 ml @ 100 mls/hr PRN PRN IV 01/15/25 10:30 01/29/25 22:17 100 MLS/HR Multivit/Ca Carb/ B Cmplx/FA/Prenat 1 tab DAILY PO 01/16/25 10:00 02/01/25 09:00 1 TAB Lorazepam 1 mg Q2HP PRN IV 01/19/25 12:00 01/19/25 12:29 1 MG Phenylephrine HCl 80 mg/Sodium Chloride 250 ml @ 7.5 mls/hr Q24H IV 01/19/25 12:00 Polyethylene Glycol 17 gm DAILYPRN PRN PO 01/21/25 12:15 01/25/25 09:59 17 GM Sennosides 8.6 mg QHSP PRN PO 01/21/25 12:15 01/24/25 23:56 8.6 MG Norepinephrine Bitartrate 32 mg/ Sodium Chloride 250 ml @ 0.938 mls/ hr Q24H IV 01/21/25 12:15 02/01/25 04:56 4.688 MLS/HR Midodrine 10 mg TID@0600,1200,1800 PO 01/24/25 06:00 02/01/25 05:31 10 MG Morphine Sulfate 2 mg Q2HPRN PRN IV 01/28/25 15:30 01/31/25 02:25 2 MG Nystatin 5 ml QID MT 01/29/25 12:00 02/01/25 05:31 5 ML Amiodarone HCl 200 mg Q12HR PO 02/01/25 10:00 02/01/25 09:01 200 MG Examination: LUNGS:Normal, CVS:Normal, MSK:Normal laboratory and microbiology Laboratory Tests 02/01/25 04:33 Test 02/01/25 04:33 Range/Units Serum Glucose 270 H 74-106 mg/dL Microbiology Date/Time Source Procedure Growth Status 01/17/25 17:30 Blood Blood Culture - Final NO GROWTH AFTER 5 DAYS OF INCUBATION. Complete 01/10/25 12:45 Ascities Fluid Gram Stain - Final Complete 01/10/25 12:45 Ascities Fluid Body Fluid Culture - Final Complete 01/09/25 14:00 Sputum Gram Stain - Final Complete 01/09/25 14:00 Respiratory Culture - Final Presumptive Lisa albicans Complete 01/09/25 05:00 Nose MRSA Screen - Final Complete Problem List/Assessment/Plan Problem List/Assessment/Plan End-stage renal disease on hemodialysis Heart failure with recent pericardial drainage due to recurrent pericardial effusions decompensated cirrhosis Diabetes Sepsis hyperkalemia, resolved VRE bacteremia Recommendations Hemodialysis tomorrow Epogen 01970 subQ 3 times weekly Strict I&Os Renal diet IV pressors for blood pressure support IV antibiotic per ID recommendations We will continue to follow Plan discussed with: Patient Dietary Evaluation Review Comments: 1) Nepro carb steady 240ml BID (ordered per ONS protocol) 2) Neprhro-Kaela 1 tab daily 3) Continue current plan of care Expected Outcomes/Goals: To meet >75% estimated needs Fu 3-5 days MARÍA AMADOR MD February 01, 2025 10:58
--- NOTE | 2025-02-01 17:33 | DVHPN2 ---
Progress Note - Dictate Date Seen: February 01, 2025 Medical Necessity Reason Pt with a Central, PICC or Fol: Yes The following are medically ne: Central Line Subjective Patient was seen and evaluated in follow up in the ICU. Patient is on 2 LPM NC. HGB 8.1, HCT 24.8, BUN 28, V[employer] TECH[employer] 2.37, GLUC 316. vital signs Vital Sign Date Time Temp Pulse Resp B/P (MAP) Pulse Ox O2 Delivery O2 Flow Rate FiO2 02/01/25 11:55 17 98 Nasal Cannula* 2 28 02/01/25 11:45 98.6 75 118/50 (72) 98.6 Total Intake and Output 01/31/25 01/31/25 02/01/25 15:00 23:00 07:00 Intake Total 26.248 ml 47.109 ml 137.267 ml Output Total 0 ml Balance 26.248 ml 47.109 ml 137.267 ml medications Current Medications Medications Dose Ordered Sig/Honey Route Start Time Stop Time Status Last Admin Dose Admin Diagnostic Test (Pha) 1 strip Q6HR 01/09/25 06:00 02/01/25 11:49 1 STRIP Insulin Human Regular Q6HR SC 01/09/25 06:00 02/01/25 11:49 8 UNITS Dextrose 50 ml UD PRN IV 01/09/25 00:30 01/18/25 10:40 50 ML Pantoprazole Sodium 40 mg DAILY IV 01/10/25 10:00 02/01/25 08:59 40 MG Ondansetron HCl 4 mg Q8HPRN PRN IV 01/09/25 10:30 01/30/25 20:04 4 MG Acetaminophen 650 mg Q6HP PRN PO 01/09/25 10:30 01/30/25 03:57 650 MG Ferrous Sulfate 325 mg BIDWM PO 01/10/25 18:00 02/01/25 09:00 325 MG Sevelamer HCl 800 mg TIDWM PO 01/10/25 18:00 02/01/25 09:00 800 MG Gabapentin 100 mg TID PO 01/11/25 14:00 02/01/25 05:31 100 MG Emollient Ointment 1 applic PRN PRN TOP 01/14/25 10:30 Albumin Human 100 ml @ 100 mls/hr PRN PRN IV 01/15/25 10:30 01/29/25 22:17 100 MLS/HR Multivit/Ca Carb/ B Cmplx/FA/Prenat 1 tab DAILY PO 01/16/25 10:00 02/01/25 09:00 1 TAB Lorazepam 1 mg Q2HP PRN IV 01/19/25 12:00 01/19/25 12:29 1 MG Phenylephrine HCl 80 mg/Sodium Chloride 250 ml @ 7.5 mls/hr Q24H IV 01/19/25 12:00 Polyethylene Glycol 17 gm DAILYPRN PRN PO 01/21/25 12:15 01/25/25 09:59 17 GM Sennosides 8.6 mg QHSP PRN PO 01/21/25 12:15 01/24/25 23:56 8.6 MG Norepinephrine Bitartrate 32 mg/ Sodium Chloride 250 ml @ 0.938 mls/ hr Q24H IV 01/21/25 12:15 02/01/25 04:56 4.688 MLS/HR Midodrine 10 mg TID@0600,1200,1800 PO 01/24/25 06:00 02/01/25 05:31 10 MG Morphine Sulfate 2 mg Q2HPRN PRN IV 01/28/25 15:30 01/31/25 02:25 2 MG Nystatin 5 ml QID MT 01/29/25 12:00 02/01/25 05:31 5 ML Amiodarone HCl 200 mg Q12HR PO 02/01/25 10:00 02/01/25 09:01 200 MG objective GENERAL: Alert and oriented x 3. No acute distress. EYES: PERRL, EOMI. Anicteric. HENT: Moist mucous membranes. LUNGS: Clear to auscultation bilaterally. CARDIOVASCULAR: Regular rate and rhythm. Systolic murmur. ABDOMEN: Ascites, large distended abdomen. EXTREMITIES: No edema. NEUROLOGIC: No focal neurological deficits. SKIN: Mottling to bilateral lower extremities. Bilateral feet cool to touch. laboratory and microbiology Laboratory Tests 02/01/25 04:33 Test 02/01/25 04:33 Range/Units Serum Glucose 270 H 74-106 mg/dL Problem List Atrial tachycardia, now in junctional rhythm. NSTEMI, likely type II. Chronic HFpEF with right-sided heart failure, NYHA class III. History of atrial fibrillation (on amiodarone and Eliquis). Chronic pericardial effusion. History of hypertension. Hyperlipidemia. Decompensated liver cirrhosis with refractory ascites. Ascites. Type 2 diabetes mellitus. End-stage renal disease on hemodialysis. Acute hepatic/metabolic/toxic encephalopathy. Acute hypoxic respiratory failure. Septic shock due to Enterococcus faecium. Blindness. Hearing loss. Assessment/Plan Continued all current supportive medical care. Amiodarone. Morphine for pain management. GI prophylactics. Vasopressors for hemodynamic support. Additional plan as per the hospital course. Critical care time of 45 minutes provided to include time spent evaluation of patient at bedside, when appropriate patient/family education for diagnosis, treatment plan, review of pertinent medical information and discussion of care with specialty providers and PCP. Dietary Evaluation Review Comments: 1) Nepro carb steady 240ml BID (ordered per ONS protocol) 2) Neprhro-Kaela 1 tab daily 3) Continue current plan of care Expected Outcomes/Goals: To meet >75% estimated needs Fu 3-5 days Plan discussed with: Patient SOREN MARTINEZ MD February 01, 2025 12:01
--- NOTE | 2025-02-01 21:30 | DVHPN2 ---
Progress Note - Dictate Date Seen: February 01, 2025 Medical Necessity Reason Pt with a Central, PICC or Fol: Yes The following are medically ne: Central Line Subjective Patient seen and examined at bedside. Remains on supplemental oxygen Overnight events reviewed. vital signs Vital Sign Date Time Temp Pulse Resp B/P (MAP) Pulse Ox O2 Delivery O2 Flow Rate FiO2 02/01/25 20:00 78 02/01/25 20:00 9 100 Nasal Cannula* 2 28 02/01/25 20:00 98.2 103/41 (61) 98.2 Total Intake and Output 01/31/25 01/31/25 02/01/25 15:00 23:00 07:00 Intake Total 26.248 ml 47.109 ml 137.267 ml Output Total 0 ml Balance 26.248 ml 47.109 ml 137.267 ml medications Current Medications Medications Dose Ordered Sig/Honey Route Start Time Stop Time Status Last Admin Dose Admin Diagnostic Test (Pha) 1 strip Q6HR 01/09/25 06:00 02/01/25 18:17 1 STRIP Insulin Human Regular Q6HR SC 01/09/25 06:00 02/01/25 18:25 4 UNITS Dextrose 50 ml UD PRN IV 01/09/25 00:30 01/18/25 10:40 50 ML Pantoprazole Sodium 40 mg DAILY IV 01/10/25 10:00 02/01/25 08:59 40 MG Ondansetron HCl 4 mg Q8HPRN PRN IV 01/09/25 10:30 01/30/25 20:04 4 MG Acetaminophen 650 mg Q6HP PRN PO 01/09/25 10:30 01/30/25 03:57 650 MG Ferrous Sulfate 325 mg BIDWM PO 01/10/25 18:00 02/01/25 09:00 325 MG Sevelamer HCl 800 mg TIDWM PO 01/10/25 18:00 02/01/25 09:00 800 MG Gabapentin 100 mg TID PO 01/11/25 14:00 02/01/25 12:04 100 MG Emollient Ointment 1 applic PRN PRN TOP 01/14/25 10:30 Albumin Human 100 ml @ 100 mls/hr PRN PRN IV 01/15/25 10:30 01/29/25 22:17 100 MLS/HR Multivit/Ca Carb/ B Cmplx/FA/Prenat 1 tab DAILY PO 01/16/25 10:00 02/01/25 09:00 1 TAB Lorazepam 1 mg Q2HP PRN IV 01/19/25 12:00 01/19/25 12:29 1 MG Phenylephrine HCl 80 mg/Sodium Chloride 250 ml @ 7.5 mls/hr Q24H IV 01/19/25 12:00 Polyethylene Glycol 17 gm DAILYPRN PRN PO 01/21/25 12:15 01/25/25 09:59 17 GM Sennosides 8.6 mg QHSP PRN PO 01/21/25 12:15 01/24/25 23:56 8.6 MG Norepinephrine Bitartrate 32 mg/ Sodium Chloride 250 ml @ 0.938 mls/ hr Q24H IV 01/21/25 12:15 02/01/25 04:56 4.688 MLS/HR Midodrine 10 mg TID@0600,1200,1800 PO 01/24/25 06:00 02/01/25 12:03 10 MG Morphine Sulfate 2 mg Q2HPRN PRN IV 01/28/25 15:30 01/31/25 02:25 2 MG Nystatin 5 ml QID MT 01/29/25 12:00 02/01/25 12:03 5 ML Amiodarone HCl 200 mg Q12HR PO 02/01/25 10:00 02/01/25 09:01 200 MG objective Gen.: Patient lying in bed in no apparent distress. On supplemental oxygen. Head: Normocephalic, atraumatic. Eyes: EOMI/PERRLA. Ears: Normal hearing. Normal anatomy. Neck/trachea: Trachea midline, supple. Nose: Normal external anatomy. Mouth: Moist mucous membranes. Chest: Decreased air entry bilaterally. No wheezing or rhonchi. Cardiovascular: Positive S1, positive S2. Regular rate and rhythm. Abdomen: Positive bowel sounds in all 4 quadrants. Soft, non-tender, non- distended. : Deferred. Rectal: Deferred. Skin: Warm, dry. Intact. Extremities: 2+ radial pulses bilaterally. No lower extremity edema. Neuro: Awake, alert, oriented x3. No gross motor or sensory deficits. Cranial nerves II through XII intact. Gait not assessed. laboratory and microbiology Laboratory Tests 02/01/25 04:33 Test 02/01/25 04:33 Range/Units Serum Glucose 270 H 74-106 mg/dL Assessment/Plan Impression: Acute hypoxic respiratory failure Dependence on supplemental oxygen End-stage renal disease, on hemodialysis Heart failure with recent pericardial window due to recurrent pericardial effusions Refractory ascites due to cirrhosis with frequent paracentesis Diabetes mellitus Non-ST elevation [place] Events: Patient seen and examined at bedside. Low oxygen requirements On 2 liters per minute nasal cannula Taper O2 as tolerated Remains on pressors for hemodynamic support On Levophed at 11 mcg/min Titrate to keep mean arterial pressure greater than 65 mmHg. On midodrine for blood pressure support. Off steroids Incentive spirometry Amiodarone PO HD per Nephrology Nephrology recs appreciated Monitor renal function Monitor hemoglobin Iron supplementation Pain control Avoid oversedation Protonix for GI prophylaxis LTAC evaluation. S/p paracentesis on 01/13/25- 3.3 liters of ascitic fluid removed Received albumin post paracentesis - See separate procedure note for details. S/p paracentesis on 01/10/25 Labs and imaging reviewed. Rest of plan as noted below. Plan: Supplemental oxygen Titrate to keep O2 sats above 92%. Head of bed elevation Aspiration precautions Off steroids Pressors as necessary for hemodynamic support Titrate to keep mean arterial pressure greater than 65 mmHg. Accu-Cheks, ISS Hemodialysis per Nephrology Nephrology recommendations appreciated. Monitor renal function. Monitor electrolytes. Supplement as necessary. Monitor ins and outs. GI prophylaxis - Protonix DVT prophylaxis. Prognosis: Poor given patient's multiple co-morbidities. Condition: Critical Rest of plan per hospitalist and other consultants. A total of 35 minutes of critical care time was spent reviewing the patient record, examining the patient, making a diagnostic and therapeutic plan, discussing this plan with the medical personnel, following up on diagnostic studies and following the patient for clinical stability excluding any and all procedures. At least 50% of this time was spent in direct, [id number] contact. Thank you, ELLIE Moreland, for allowing me to participate in this patient's care. Further recommendations will depend on the patient's clinical course. Please do not hesitate to contact me if you have any questions or concerns. This medical document was created using an electronic medical record system with [employer] dictation system. Although these documentations are being carefully reviewed, there may still be some phonetic and typographical changes. The errors are purely typographical, due to imperfection on the software program, and do not reflect any compromise in the patient's medical care. Dietary Evaluation Review Comments: 1) Nepro carb steady 240ml BID (ordered per [facility]NS protocol) 2) Neprhro-Kaela 1 tab daily 3) Continue current plan of care Expected Outcomes/Goals: To meet >75% estimated needs Fu 3-5 days Plan discussed with: Other (RN Lakia) Critical Care Time(min): 35 MAYE HEATH MD February 01, 2025 21:30
[2025-02-02] VITALS (112 sets, daily range): BP systolic 76–124; BP diastolic 10–52; PULSE 72–95; RESP 8–28; TEMP 97.2–99.3; O2SAT 76–100
[2025-02-02] MEDS: VASELINE LIP THERAPY 10gm TOP PRN (04:36)
[2025-02-02 06:28] LABS: Alanine Aminotransferase 24 U/L (7-40); Albumin 3.5 g/dL (3.2-4.8); Anion Gap 10 (5-15); Aspartate Aminotransferase 25 U/L (13-40); BUN/Creatinine Ratio 11.8 (10.0-20.0); Calcium 9.7 mg/dL (8.7-10.4); Chloride 100 mmol/L (98-107); Magnesium 2.4 mg/dL (1.6-2.6); Potassium 3.9 mmol/L (3.5-5.1); Sodium 141 mmol/L (136-145)
[2025-02-02 06:33] LABS: Alkaline Phosphatase 172 U/L (46-116); Bilirubin, Total 2.1 mg/dL (0.2-1.0); Blood Urea Nitrogen 37 mg/dL (9-23); Carbon Dioxide 31 mmol/L (20-31); Glucose 150 mg/dL (74-106); Total Protein 5.1 g/dL (5.7-8.2)
[2025-02-02] MEDS: SODIUM CHL 0.9% 1000 ML BAG XX ONE (07:00)
[2025-02-02 08:00] LABS: Hematocrit 25.3 % (36.0-46.0); Hemoglobin 8.2 g/dL (12.2-16.2); Mean Corpuscular Hemoglobin 31.7 pg (28.0-32.0); Mean Corpuscular Hgb Conc. 32.5 g/dL (32.0-36.0); Mean Corpuscular Volume 97.4 fL (80.0-100.0); Platelet Count (auto) 76 10^3/uL (140-450); Red Cell Distribution Width 16.2 % (11.8-14.3); White Blood Cell 11.5 10^3/uL (4.4-10.8)
[2025-02-02 08:03] LABS: Band Neutrophils % (manual) 0; Basophils % (manual) 0 (0.0-2.0); Blast Cells 0; Eosinophils % (manual) 0 (0-7); Metamyelocytes % 0; Myelocytes % 0; Promyelocytes % 0; Reactive Lymphocytes 0
[2025-02-02 09:04] LABS: Anisocytosis Slight; Lymphocytes % (manual) 20 (10.0-50.0); Monocytes % (manual) 10 (0-12); Platelet Estimate Decreased; Stomatocytes Few; Target Cell FEW
--- NOTE | 2025-02-02 09:32 | DVHPN2 ---
Progress Note Date Seen: February 02, 2025 Medical Necessity Reason Pt with a Central, PICC or Fol: Yes The following are medically ne: Central Line Subjective Other Systems: Patient seen and examined by myself today in follow-up Patient examined hemodialysis, blood pressure stable Objective vital signs Vital Sign Date Time Temp Pulse Resp B/P (MAP) Pulse Ox O2 Delivery O2 Flow Rate FiO2 02/02/25 09:15 99.3 82 12 109/48 (68) 100 99.3 02/02/25 08:08 Nasal Cannula* 2 28 Total Intake and Output 02/01/25 02/01/25 02/02/25 15:00 23:00 07:00 Intake Total 43.596 ml 146.955 ml 65.391 ml Output Total 0 ml Balance 43.596 ml 146.955 ml 65.391 ml medications Current Medications Medications Dose Ordered Sig/Honey Route Start Time Stop Time Status Last Admin Dose Admin Diagnostic Test (Pha) 1 strip Q6HR 01/09/25 06:00 02/02/25 06:09 1 STRIP Insulin Human Regular Q6HR SC 01/09/25 06:00 02/02/25 01:31 2 UNITS Dextrose 50 ml UD PRN IV 01/09/25 00:30 01/18/25 10:40 50 ML Pantoprazole Sodium 40 mg DAILY IV 01/10/25 10:00 02/02/25 08:15 40 MG Ondansetron HCl 4 mg Q8HPRN PRN IV 01/09/25 10:30 01/30/25 20:04 4 MG Acetaminophen 650 mg Q6HP PRN PO 01/09/25 10:30 01/30/25 03:57 650 MG Ferrous Sulfate 325 mg BIDWM PO 01/10/25 18:00 02/02/25 08:16 325 MG Sevelamer HCl 800 mg TIDWM PO 01/10/25 18:00 02/01/25 09:00 800 MG Gabapentin 100 mg TID PO 01/11/25 14:00 02/02/25 06:27 100 MG Emollient Ointment 1 applic PRN PRN TOP 01/14/25 10:30 02/02/25 04:36 1 APPLIC Albumin Human 100 ml @ 100 mls/hr PRN PRN IV 01/15/25 10:30 01/29/25 22:17 100 MLS/HR Multivit/Ca Carb/ B Cmplx/FA/Prenat 1 tab DAILY PO 01/16/25 10:00 02/02/25 08:15 1 TAB Lorazepam 1 mg Q2HP PRN IV 01/19/25 12:00 01/19/25 12:29 1 MG Phenylephrine HCl 80 mg/Sodium Chloride 250 ml @ 7.5 mls/hr Q24H IV 01/19/25 12:00 Polyethylene Glycol 17 gm DAILYPRN PRN PO 01/21/25 12:15 01/25/25 09:59 17 GM Sennosides 8.6 mg QHSP PRN PO 01/21/25 12:15 01/24/25 23:56 8.6 MG Norepinephrine Bitartrate 32 mg/ Sodium Chloride 250 ml @ 0.938 mls/ hr Q24H IV 01/21/25 12:15 02/01/25 04:56 4.688 MLS/HR Midodrine 10 mg TID@0600,1200,1800 PO 01/24/25 06:00 02/02/25 06:27 10 MG Morphine Sulfate 2 mg Q2HPRN PRN IV 01/28/25 15:30 02/02/25 04:20 2 MG Nystatin 5 ml QID MT 01/29/25 12:00 02/02/25 06:27 5 ML Amiodarone HCl 200 mg Q12HR PO 02/01/25 10:00 02/02/25 08:16 200 MG Examination: LUNGS:Normal, CVS:Normal, MSK:Normal laboratory and microbiology Laboratory Tests 02/02/25 05:55 Test 02/02/25 05:55 Range/Units Serum Glucose 150 H 74-106 mg/dL Microbiology Date/Time Source Procedure Growth Status 01/17/25 17:30 Blood Blood Culture - Final NO GROWTH AFTER 5 DAYS OF INCUBATION. Complete 01/10/25 12:45 Ascities Fluid Gram Stain - Final Complete 01/10/25 12:45 Ascities Fluid Body Fluid Culture - Final Complete 01/09/25 14:00 Sputum Gram Stain - Final Complete 01/09/25 14:00 Respiratory Culture - Final Presumptive Lisa albicans Complete 01/09/25 05:00 Nose MRSA Screen - Final Complete Problem List/Assessment/Plan Problem List/Assessment/Plan End-stage renal disease on hemodialysis Encephalopathy Chronic diastolic Congestive heart failure Recurrent pericardial effusion decompensated cirrhosis Diabetes mellitus type 2 Sepsis hyperkalemia, resolved VRE bacteremia Recommendations Continue with UF 3-4 L as tolerated Epogen 61906 subQ 3 times weekly Albumin 25% p.r.n. hemodialysis Strict I&Os Renal diet IV pressors for blood pressure support IV antibiotic per ID recommendations We will continue to follow Plan discussed with: Other (Nurse) My Orders My Orders Orders - MARÍA AMADOR MD Procedure Category Date Status Time Hemodialysis Orders ORDERS 02/02/25 Transmitted 07:00 Dialysis Nursing REGINALD 02/02/25 In Process Message 07:00 Document Fluid Input REGINALD 02/02/25 In Process And Outpu 07:00 Epoetin Hola-Epbx PHA 02/02/25 In Process (Retacrit) 21:00 Dietary Evaluation Review Comments: 1) Nepro carb steady 240ml BID (ordered per [facility]NS protocol) 2) Neprhro-Kaela 1 tab daily 3) Continue current plan of care Expected Outcomes/Goals: To meet >75% estimated needs Fu 3-5 days MARÍA AMADOR MD February 02, 2025 09:32
--- NOTE | 2025-02-02 14:20 | DVHPN2 ---
Assessment/Plan Assessment/Plan ICU notes covering still on levo. for HD today. titrating levo per a line. physical exam on HFNC AOx3 on off confused MMM coarse breath sounds s1 s2 RRR systolic murmur abdomen distended LE edema dusky hand, feet labs ekg imaging reviewed assessment and plan Acute hepatic/metabolic/toxic encephalopathy Acute hypoxic respiratory failure due to presumptive Lisa albicans pneumonia, and acute on chronic Septic shock due to Enterococcus faecium - VRE bacteremia and presumptive Lisa albicans pneumonia Decompensated liver cirrhosis with refractory ascites status post recurrent paracentesis (last this morning of almost 4 liters), thrombocytopenia, and coagulopathy ACS ruled out Diabetes mellitus type 2 Blindness Hearing loss Atrial tachycardia, now in junctional rhythm. Type 2 ID, demand ischemia Acute on chronic HFpEF with right-sided heart failure; with chronic pericardial effusion status post recurrent pericardiocentesis History of atrial fibrillation Normocytic anemia; most likely inflammatory End-stage renal disease on hemodialysis pulmonary edema vs ARDS r/o , MR r/o pHTN slow transit constipation encephalopatic, metabolic vs hepatic c/w HFNC, maintain spo2 >89% GOC discussion to continue c/w rest of management c/w abx lactulose diet cardiac dvt ppx on AC gi ppx protonix chemical code, HD, para okay DNR DNI condition critical prognosis grim 40 minutes critical care time Plan discussed with: Patient My Orders Orders - BINTA VELAZQUEZ MD Procedure Category Date Status Time Complete Blood Count LAB 02/03/25 Verified 04:00 Comprehensive LAB 02/03/25 Verified Metabolic Panel 04:00 Magnesium LAB 02/03/25 Verified 04:00 Date of Service: February 02, 2025 Billing Provider: BINTA VELAZQUEZ MD Common Visit Codes: 55207-MDCLNRPB CARE 30-74 MIN BINTA VELAZQUEZ MD February 02, 2025 14:20
[2025-02-02] MEDS: EPOETIN ALFA-EPBX 10,000 UNIT/1ML VIAL SC ONE (21:00)
--- NOTE | 2025-02-02 22:40 | DVHPN2 ---
Progress Note - Dictate Date Seen: February 02, 2025 Medical Necessity Reason Pt with a Central, PICC or Fol: Yes The following are medically ne: Central Line Subjective Patient seen and examined at bedside. Remains on supplemental oxygen Overnight events reviewed. vital signs Vital Sign Date Time Temp Pulse Resp B/P (MAP) Pulse Ox O2 Delivery O2 Flow Rate FiO2 02/02/25 22:00 91 27 114/46 (68) 100 02/02/25 22:00 Nasal Cannula* 2 28 02/02/25 20:00 97.6 97.6 Total Intake and Output 02/01/25 02/01/25 02/02/25 15:00 23:00 07:00 Intake Total 43.596 ml 146.955 ml 65.391 ml Output Total 0 ml Balance 43.596 ml 146.955 ml 65.391 ml medications Current Medications Medications Dose Ordered Sig/Honey Route Start Time Stop Time Status Last Admin Dose Admin Diagnostic Test (Pha) 1 strip Q6HR 01/09/25 06:00 02/02/25 16:03 1 STRIP Insulin Human Regular Q6HR SC 01/09/25 06:00 02/02/25 11:29 6 UNITS Dextrose 50 ml UD PRN IV 01/09/25 00:30 01/18/25 10:40 50 ML Pantoprazole Sodium 40 mg DAILY IV 01/10/25 10:00 02/02/25 08:15 40 MG Ondansetron HCl 4 mg Q8HPRN PRN IV 01/09/25 10:30 01/30/25 20:04 4 MG Acetaminophen 650 mg Q6HP PRN PO 01/09/25 10:30 01/30/25 03:57 650 MG Ferrous Sulfate 325 mg BIDWM PO 01/10/25 18:00 02/02/25 08:16 325 MG Sevelamer HCl 800 mg TIDWM PO 01/10/25 18:00 02/01/25 09:00 800 MG Gabapentin 100 mg TID PO 01/11/25 14:00 02/02/25 22:34 100 MG Emollient Ointment 1 applic PRN PRN TOP 01/14/25 10:30 02/02/25 04:36 1 APPLIC Albumin Human 100 ml @ 100 mls/hr PRN PRN IV 01/15/25 10:30 02/02/25 15:55 100 MLS/HR Multivit/Ca Carb/ B Cmplx/FA/Prenat 1 tab DAILY PO 01/16/25 10:00 02/02/25 08:15 1 TAB Lorazepam 1 mg Q2HP PRN IV 01/19/25 12:00 01/19/25 12:29 1 MG Phenylephrine HCl 80 mg/Sodium Chloride 250 ml @ 7.5 mls/hr Q24H IV 01/19/25 12:00 Polyethylene Glycol 17 gm DAILYPRN PRN PO 01/21/25 12:15 01/25/25 09:59 17 GM Sennosides 8.6 mg QHSP PRN PO 01/21/25 12:15 01/24/25 23:56 8.6 MG Norepinephrine Bitartrate 32 mg/ Sodium Chloride 250 ml @ 0.938 mls/ hr Q24H IV 01/21/25 12:15 02/01/25 04:56 4.688 MLS/HR Midodrine 10 mg TID@0600,1200,1800 PO 01/24/25 06:00 02/02/25 17:00 10 MG Morphine Sulfate 2 mg Q2HPRN PRN IV 01/28/25 15:30 02/02/25 04:20 2 MG Nystatin 5 ml QID MT 01/29/25 12:00 02/02/25 22:34 5 ML Amiodarone HCl 200 mg Q12HR PO 02/01/25 10:00 02/02/25 22:34 200 MG Lactulose 30 ml DAILY PO 02/03/25 10:00 objective Gen.: Patient lying in bed in no apparent distress. On supplemental oxygen. Head: Normocephalic, atraumatic. Eyes: EOMI/PERRLA. Ears: Normal hearing. Normal anatomy. Neck/trachea: Trachea midline, supple. Nose: Normal external anatomy. Mouth: Moist mucous membranes. Chest: Decreased air entry bilaterally. No wheezing or rhonchi. Cardiovascular: Positive S1, positive S2. Regular rate and rhythm. Abdomen: Positive bowel sounds in all 4 quadrants. Soft, non-tender, non- distended. : Deferred. Rectal: Deferred. Skin: Warm, dry. Intact. Extremities: 2+ radial pulses bilaterally. No lower extremity edema. Neuro: Awake, alert, oriented x3. No gross motor or sensory deficits. Cranial nerves II through XII intact. Gait not assessed. laboratory and microbiology Laboratory Tests 02/02/25 05:55 Test 02/02/25 05:55 Range/Units Serum Glucose 150 H 74-106 mg/dL Assessment/Plan Impression: Acute hypoxic respiratory failure Dependence on supplemental oxygen End-stage renal disease, on hemodialysis Heart failure with recent pericardial window due to recurrent pericardial effusions Refractory ascites due to cirrhosis with frequent paracentesis Diabetes mellitus Non-ST elevation [place] Events: Patient seen and examined at bedside. On 4 liters per minute nasal cannula Taper O2 as tolerated Remains on pressors for hemodynamic support On Levophed at 16 mcg/min Titrate to keep mean arterial pressure greater than 65 mmHg. On midodrine TID for blood pressure support. Incentive spirometry Amiodarone PO Nystatin for thrush HD per Nephrology - removed 4 liters Nephrology recs appreciated Monitor renal function Monitor hemoglobin Iron supplementation Pain control Avoid oversedation Protonix for GI prophylaxis Recommend LTAC. S/p paracentesis on 01/13/25- 3.3 liters of ascitic fluid removed Received albumin post paracentesis - See separate procedure note for details. S/p paracentesis on 01/10/25 Labs and imaging reviewed. Rest of plan as noted below. Plan: Supplemental oxygen Titrate to keep O2 sats above 92%. Head of bed elevation Aspiration precautions Off steroids Pressors as necessary for hemodynamic support Titrate to keep mean arterial pressure greater than 65 mmHg. Accu-Cheks, ISS Hemodialysis per Nephrology Nephrology recommendations appreciated. Monitor renal function. Monitor electrolytes. Supplement as necessary. Monitor ins and outs. GI prophylaxis - Protonix DVT prophylaxis. Prognosis: Poor given patient's multiple co-morbidities. Condition: Critical Rest of plan per hospitalist and other consultants. A total of 35 minutes of critical care time was spent reviewing the patient record, examining the patient, making a diagnostic and therapeutic plan, discussing this plan with the medical personnel, following up on diagnostic studies and following the patient for clinical stability excluding any and all procedures. At least 50% of this time was spent in direct, [id number] contact. Thank you, ELLIE Moreland, for allowing me to participate in this patient's care. Further recommendations will depend on the patient's clinical course. Please do not hesitate to contact me if you have any questions or concerns. This medical document was created using an electronic medical record system with [employer] dictation system. Although these documentations are being carefully reviewed, there may still be some phonetic and typographical changes. The errors are purely typographical, due to imperfection on the software program, and do not reflect any compromise in the patient's medical care. Dietary Evaluation Review Comments: 1) Nepro carb steady 240ml BID (ordered per [facility] protocol) 2) Neprhro-Kaela 1 tab daily 3) Continue current plan of care Expected Outcomes/Goals: To meet >75% estimated needs Fu 3-5 days Plan discussed with: Other (RN) Critical Care Time(min): 35 MAYE HEATH MD February 02, 2025 22:40
--- NOTE | 2025-02-02 23:47 | DVHPN2 ---
Progress Note - Dictate Date Seen: February 02, 2025 Medical Necessity Reason Pt with a Central, PICC or Fol: Yes The following are medically ne: Central Line Subjective Patient was seen and evaluated in follow up in the ICU. No overnight events. Patient on 2 LPM NC. Patient still requiring Levophed. Planned for HD today. WBC 11.5, HGB 8.2, HCT 25.3, BUN 37, AURICULAR DETOXIFICATION SPECIALIST 3.14, GLUC 264. vital signs Vital Sign Date Time Temp Pulse Resp B/P (MAP) Pulse Ox O2 Delivery O2 Flow Rate FiO2 02/02/25 12:30 79 13 106/45 (65) 99 02/02/25 12:00 99.0 99.0 02/02/25 11:59 Nasal Cannula* 2 28 Total Intake and Output 02/01/25 02/01/25 02/02/25 15:00 23:00 07:00 Intake Total 43.596 ml 146.955 ml 65.391 ml Output Total 0 ml Balance 43.596 ml 146.955 ml 65.391 ml medications Current Medications Medications Dose Ordered Sig/Honey Route Start Time Stop Time Status Last Admin Dose Admin Diagnostic Test (Pha) 1 strip Q6HR 01/09/25 06:00 02/02/25 11:24 1 STRIP Insulin Human Regular Q6HR SC 01/09/25 06:00 02/02/25 11:29 6 UNITS Dextrose 50 ml UD PRN IV 01/09/25 00:30 01/18/25 10:40 50 ML Pantoprazole Sodium 40 mg DAILY IV 01/10/25 10:00 02/02/25 08:15 40 MG Ondansetron HCl 4 mg Q8HPRN PRN IV 01/09/25 10:30 01/30/25 20:04 4 MG Acetaminophen 650 mg Q6HP PRN PO 01/09/25 10:30 01/30/25 03:57 650 MG Ferrous Sulfate 325 mg BIDWM PO 01/10/25 18:00 02/02/25 08:16 325 MG Sevelamer HCl 800 mg TIDWM PO 01/10/25 18:00 02/01/25 09:00 800 MG Gabapentin 100 mg TID PO 01/11/25 14:00 02/02/25 12:48 100 MG Emollient Ointment 1 applic PRN PRN TOP 01/14/25 10:30 02/02/25 04:36 1 APPLIC Albumin Human 100 ml @ 100 mls/hr PRN PRN IV 01/15/25 10:30 01/29/25 22:17 100 MLS/HR Multivit/Ca Carb/ B Cmplx/FA/Prenat 1 tab DAILY PO 01/16/25 10:00 02/02/25 08:15 1 TAB Lorazepam 1 mg Q2HP PRN IV 01/19/25 12:00 01/19/25 12:29 1 MG Phenylephrine HCl 80 mg/Sodium Chloride 250 ml @ 7.5 mls/hr Q24H IV 01/19/25 12:00 Polyethylene Glycol 17 gm DAILYPRN PRN PO 01/21/25 12:15 01/25/25 09:59 17 GM Sennosides 8.6 mg QHSP PRN PO 01/21/25 12:15 01/24/25 23:56 8.6 MG Norepinephrine Bitartrate 32 mg/ Sodium Chloride 250 ml @ 0.938 mls/ hr Q24H IV 01/21/25 12:15 02/01/25 04:56 4.688 MLS/HR Midodrine 10 mg TID@0600,1200,1800 PO 01/24/25 06:00 02/02/25 12:48 10 MG Morphine Sulfate 2 mg Q2HPRN PRN IV 01/28/25 15:30 02/02/25 04:20 2 MG Nystatin 5 ml QID MT 01/29/25 12:00 02/02/25 12:48 5 ML Amiodarone HCl 200 mg Q12HR PO 02/01/25 10:00 02/02/25 08:16 200 MG objective GENERAL: Alert and oriented x 3. No acute distress. EYES: PERRL, EOMI. Anicteric. HENT: Moist mucous membranes. LUNGS: Clear to auscultation bilaterally. CARDIOVASCULAR: Regular rate and rhythm. Systolic murmur. ABDOMEN: Ascites, large distended abdomen. EXTREMITIES: No edema. NEUROLOGIC: No focal neurological deficits. SKIN: Mottling to bilateral lower extremities. Bilateral feet cool to touch. laboratory and microbiology Laboratory Tests 02/02/25 05:55 Test 02/02/25 05:55 Range/Units Serum Glucose 150 H 74-106 mg/dL Problem List Atrial tachycardia, now in junctional rhythm. NSTEMI, likely type II. Chronic HFpEF with right-sided heart failure, NYHA class III. History of atrial fibrillation (on amiodarone and Eliquis). Chronic pericardial effusion. History of hypertension. Hyperlipidemia. Decompensated liver cirrhosis with refractory ascites. Ascites. Type 2 diabetes mellitus. End-stage renal disease on hemodialysis. Acute hepatic/metabolic/toxic encephalopathy. Acute hypoxic respiratory failure. Septic shock due to Enterococcus faecium. Blindness. Hearing loss. Assessment/Plan Continued all current supportive medical care. Amiodarone. Morphine for pain management. GI prophylactics. Vasopressors for hemodynamic support. Additional plan as per the hospital course. Critical care time of 45 minutes provided to include time spent evaluation of patient at bedside, when appropriate patient/family education for diagnosis, treatment plan, review of pertinent medical information and discussion of care with specialty providers and PCP. Dietary Evaluation Review Comments: 1) Nepro carb steady 240ml BID (ordered per [facility] protocol) 2) Neprhro-Kaela 1 tab daily 3) Continue current plan of care Expected Outcomes/Goals: To meet >75% estimated needs Fu 3-5 days Plan discussed with: Patient SOREN MARTINEZ MD February 02, 2025 13:32
[2025-02-03] VITALS (103 sets, daily range): BP systolic 88–124; BP diastolic 28–59; PULSE 68–102; RESP 8–27; TEMP 97.6–98.9; O2SAT 68–100
[2025-02-03 06:30] LABS: Hemoglobin 7.2 g/dL (12.2-16.2); White Blood Cell 8.1 10^3/uL (4.4-10.8)
[2025-02-03 06:34] LABS: Mean Corpuscular Hemoglobin 32.4 pg (28.0-32.0); Mean Corpuscular Hgb Conc. 32.7 g/dL (32.0-36.0); Mean Corpuscular Volume 99.2 fL (80.0-100.0); Platelet Count (auto) 89 10^3/uL (140-450); Red Blood Cells 2.22 10^6/uL (4.0-5.20); Red Cell Distribution Width 16.8 % (11.8-14.3)
[2025-02-03 06:49] LABS: Band Neutrophils % (manual) 0; Basophils % (manual) 0 (0.0-2.0); Blast Cells 0; Eosinophils % (manual) 0 (0-7); Metamyelocytes % 0; Myelocytes % 0; Promyelocytes % 0; Reactive Lymphocytes 0
[2025-02-03 06:51] LABS: Alanine Aminotransferase 20 U/L (7-40); Anion Gap 11 (5-15); Aspartate Aminotransferase 28 U/L (13-40); BUN/Creatinine Ratio 11.6 (10.0-20.0); Carbon Dioxide 29 mmol/L (20-31); Chloride 100 mmol/L (98-107); Magnesium 2.3 mg/dL (1.6-2.6); Potassium 3.9 mmol/L (3.5-5.1); Sodium 140 mmol/L (136-145)
[2025-02-03 06:57] LABS: Alkaline Phosphatase 144 U/L (46-116); Bilirubin, Total 1.9 mg/dL (0.2-1.0); Blood Urea Nitrogen 30 mg/dL (9-23); Calcium 8.7 mg/dL (8.7-10.4); Glucose 264 mg/dL (74-106); Phosphorus 1.8 mg/dL (2.4-5.1); Total Protein 5.4 g/dL (5.7-8.2)
[2025-02-03 07:50] LABS: Anisocytosis Slight; Lymphocytes % (manual) 13 (10.0-50.0); Monocytes % (manual) 5 (0-12); Stomatocytes Few; Target Cell FEW
[2025-02-03 07:51] LABS: Platelet Estimate Decreased
--- NOTE | 2025-02-03 08:44 | DVHPN2 ---
Progress Note Date Seen: February 03, 2025 Medical Necessity Reason Pt with a Central, PICC or Fol: Yes The following are medically ne: Central Line Subjective Other Systems: Patient seen and examined by myself today in follow-up Objective vital signs Vital Sign Date Time Temp Pulse Resp B/P (MAP) Pulse Ox O2 Delivery O2 Flow Rate FiO2 02/03/25 08:22 16 100 Nasal Cannula* 2 28 02/03/25 08:15 75 106/47 (66) 02/03/25 04:00 98.5 98.5 Total Intake and Output 02/02/25 02/02/25 02/03/25 15:00 23:00 07:00 Intake Total 46.81362 ml 173.437 ml 67.5 ml Output Total 0 ml Balance 46.81042 ml 173.437 ml 67.5 ml medications Current Medications Medications Dose Ordered Sig/Honey Route Start Time Stop Time Status Last Admin Dose Admin Diagnostic Test (Pha) 1 strip Q6HR 01/09/25 06:00 02/03/25 06:28 1 STRIP Insulin Human Regular Q6HR SC 01/09/25 06:00 02/03/25 06:29 6 UNITS Dextrose 50 ml UD PRN IV 01/09/25 00:30 01/18/25 10:40 50 ML Pantoprazole Sodium 40 mg DAILY IV 01/10/25 10:00 02/02/25 08:15 40 MG Ondansetron HCl 4 mg Q8HPRN PRN IV 01/09/25 10:30 01/30/25 20:04 4 MG Acetaminophen 650 mg Q6HP PRN PO 01/09/25 10:30 01/30/25 03:57 650 MG Ferrous Sulfate 325 mg BIDWM PO 01/10/25 18:00 02/02/25 08:16 325 MG Sevelamer HCl 800 mg TIDWM PO 01/10/25 18:00 02/01/25 09:00 800 MG Gabapentin 100 mg TID PO 01/11/25 14:00 02/02/25 22:34 100 MG Emollient Ointment 1 applic PRN PRN TOP 01/14/25 10:30 02/02/25 04:36 1 APPLIC Albumin Human 100 ml @ 100 mls/hr PRN PRN IV 01/15/25 10:30 02/02/25 15:55 100 MLS/HR Multivit/Ca Carb/ B Cmplx/FA/Prenat 1 tab DAILY PO 01/16/25 10:00 02/02/25 08:15 1 TAB Lorazepam 1 mg Q2HP PRN IV 01/19/25 12:00 01/19/25 12:29 1 MG Phenylephrine HCl 80 mg/Sodium Chloride 250 ml @ 7.5 mls/hr Q24H IV 01/19/25 12:00 Polyethylene Glycol 17 gm DAILYPRN PRN PO 01/21/25 12:15 01/25/25 09:59 17 GM Sennosides 8.6 mg QHSP PRN PO 01/21/25 12:15 01/24/25 23:56 8.6 MG Norepinephrine Bitartrate 32 mg/ Sodium Chloride 250 ml @ 0.938 mls/ hr Q24H IV 01/21/25 12:15 02/01/25 04:56 4.688 MLS/HR Midodrine 10 mg TID@0600,1200,1800 PO 01/24/25 06:00 02/02/25 17:00 10 MG Morphine Sulfate 2 mg Q2HPRN PRN IV 01/28/25 15:30 02/02/25 04:20 2 MG Nystatin 5 ml QID MT 01/29/25 12:00 02/02/25 22:34 5 ML Amiodarone HCl 200 mg Q12HR PO 02/01/25 10:00 02/02/25 22:34 200 MG Lactulose 30 ml DAILY PO 02/03/25 10:00 Examination: LUNGS:Normal, CVS:Normal, MSK:Abnormal, NEURO:Abnormal laboratory and microbiology Laboratory Tests 02/03/25 06:15 Test 02/03/25 06:15 Range/Units Serum Glucose 264 H 74-106 mg/dL Microbiology Date/Time Source Procedure Growth Status 01/17/25 17:30 Blood Blood Culture - Final NO GROWTH AFTER 5 DAYS OF INCUBATION. Complete 01/10/25 12:45 Ascities Fluid Gram Stain - Final Complete 01/10/25 12:45 Ascities Fluid Body Fluid Culture - Final Complete 01/09/25 14:00 Sputum Gram Stain - Final Complete 01/09/25 14:00 Respiratory Culture - Final Presumptive Lisa albicans Complete 01/09/25 05:00 Nose MRSA Screen - Final Complete Problem List/Assessment/Plan Problem List/Assessment/Plan End-stage renal disease on hemodialysis Encephalopathy Chronic diastolic Congestive heart failure Recurrent pericardial effusion decompensated cirrhosis Diabetes mellitus type 2 Sepsis hyperkalemia, resolved VRE bacteremia Recommendations Status post hemodialysis yesterday with 3 L removed with ultrafiltration Next hemodialysis 02/05 Epogen 04555 subQ 3 times weekly Albumin 25% p.r.n. hemodialysis Strict I&Os Renal diet IV pressors for blood pressure support IV antibiotic per ID recommendations We will continue to follow Plan discussed with: Other (Nurse) Dietary Evaluation Review Comments: 1) Nepro carb steady 240ml BID (ordered per ONS protocol) 2) Neprhro-Kaela 1 tab daily 3) Continue current plan of care Expected Outcomes/Goals: To meet >75% estimated needs Fu 3-5 days MARÍA AMADOR MD February 03, 2025 08:44
[2025-02-03] MEDS: LACTULOSE 20Gm/30ML SOLN PO SCH (08:51)
[2025-02-03] MEDS ORDERED: GLYCOPYRROLATE 0.2 MG/ML 1ML VIAL IV PRN (16:15)
[2025-02-03] MEDS ORDERED: LORazepam 2MG/ML-1ML VIAL IV PRN (16:15)
--- NOTE | 2025-02-03 18:05 | DVHPN2 ---
Assessment/Plan Assessment/Plan ICU notes covering still on levo. continueing family discussion, more encephalopathic, not able to fully tolerate oral and PO meds. physical exam on nc AOx1 on off confused MMM coarse breath sounds s1 s2 RRR systolic murmur abdomen distended LE edema dusky hand, feet labs ekg imaging reviewed assessment and plan Acute hepatic/metabolic/toxic encephalopathy Acute hypoxic respiratory failure due to presumptive Lisa albicans pneumonia, and acute on chronic Septic shock due to Enterococcus faecium - VRE bacteremia and presumptive Lisa albicans pneumonia Decompensated liver cirrhosis with refractory ascites status post recurrent paracentesis (last this morning of almost 4 liters), thrombocytopenia, and coagulopathy ACS ruled out Diabetes mellitus type 2 Blindness Hearing loss Atrial tachycardia, now in junctional rhythm. Type 2 MN, demand ischemia Acute on chronic HFpEF with right-sided heart failure; with chronic pericardial effusion status post recurrent pericardiocentesis History of atrial fibrillation Normocytic anemia; most likely inflammatory End-stage renal disease on hemodialysis pulmonary edema vs ARDS r/o , MR r/o pHTN slow transit constipation encephalopatic, metabolic vs hepatic c/w HFNC, maintain spo2 >89% GOC discussion to continue c/w rest of management c/w abx lactulose diet cardiac dvt ppx on AC gi ppx protonix chemical code, HD, para okay DNR DNI condition critical prognosis grim 80 minutes critical care time Plan discussed with: Patient, Daughter, Son My Orders Orders - BINTA VELAZQUEZ MD Procedure Category Date Status Time Hydromorphone PHA 02/03/25 In Process Injection (Dilaudid 16:15 Glycopyrrolate PHA 02/03/25 In Process Injection (Robinul 16:15 Lorazepam 2mg/Ml Inj PHA 02/03/25 In Process (Ativan Inj) 16:15 Date of Service: February 03, 2025 Billing Provider: BINTA VELAZQUEZ MD Common Visit Codes: [id number] CARE 30-74 MIN, [id number] CARE-EACH +30MIN BINTA VELAZQUEZ MD February 03, 2025 18:05
--- NOTE | 2025-02-03 23:04 | DVHPN2 ---
Progress Note - Dictate Date Seen: February 03, 2025 Medical Necessity Reason Pt with a Central, PICC or Fol: Yes The following are medically ne: Central Line Subjective Patient was seen and evaluated in follow up in the ICU. Patient is stable on 2 LPM NC. Patient still is requiring Levophed. HGB 7.2, HCT 22, BUN 30, [employer] 2.58. vital signs Vital Sign Date Time Temp Pulse Resp B/P (MAP) Pulse Ox O2 Delivery O2 Flow Rate FiO2 02/03/25 15:32 20 99 Nasal Cannula* 2 28 02/03/25 15:30 102 107/48 (67) 02/03/25 12:00 97.6 97.6 Total Intake and Output 02/02/25 02/02/25 02/03/25 15:00 23:00 07:00 Intake Total 46.71360 ml 173.437 ml 67.5 ml Output Total 0 ml Balance 46.31677 ml 173.437 ml 67.5 ml medications Current Medications Medications Dose Ordered Sig/Honey Route Start Time Stop Time Status Last Admin Dose Admin Diagnostic Test (Pha) 1 strip Q6HR 01/09/25 06:00 02/03/25 11:39 1 STRIP Insulin Human Regular Q6HR SC 01/09/25 06:00 02/03/25 11:39 3 UNITS Dextrose 50 ml UD PRN IV 01/09/25 00:30 01/18/25 10:40 50 ML Pantoprazole Sodium 40 mg DAILY IV 01/10/25 10:00 02/03/25 08:51 40 MG Ondansetron HCl 4 mg Q8HPRN PRN IV 01/09/25 10:30 01/30/25 20:04 4 MG Acetaminophen 650 mg Q6HP PRN PO 01/09/25 10:30 01/30/25 03:57 650 MG Ferrous Sulfate 325 mg BIDWM PO 01/10/25 18:00 02/03/25 08:52 325 MG Sevelamer HCl 800 mg TIDWM PO 01/10/25 18:00 02/03/25 08:52 800 MG Gabapentin 100 mg TID PO 01/11/25 14:00 02/02/25 22:34 100 MG Emollient Ointment 1 applic PRN PRN TOP 01/14/25 10:30 02/02/25 04:36 1 APPLIC Albumin Human 100 ml @ 100 mls/hr PRN PRN IV 01/15/25 10:30 02/02/25 15:55 100 MLS/HR Multivit/Ca Carb/ B Cmplx/FA/Prenat 1 tab DAILY PO 01/16/25 10:00 02/03/25 08:51 1 TAB Lorazepam 1 mg Q2HP PRN IV 01/19/25 12:00 01/19/25 12:29 1 MG Phenylephrine HCl 80 mg/Sodium Chloride 250 ml @ 7.5 mls/hr Q24H IV 01/19/25 12:00 Polyethylene Glycol 17 gm DAILYPRN PRN PO 01/21/25 12:15 01/25/25 09:59 17 GM Sennosides 8.6 mg QHSP PRN PO 01/21/25 12:15 01/24/25 23:56 8.6 MG Norepinephrine Bitartrate 32 mg/ Sodium Chloride 250 ml @ 0.938 mls/ hr Q24H IV 01/21/25 12:15 02/02/25 18:00 7.031 MLS/HR Midodrine 10 mg TID@0600,1200,1800 PO 01/24/25 06:00 02/02/25 17:00 10 MG Morphine Sulfate 2 mg Q2HPRN PRN IV 01/28/25 15:30 02/02/25 04:20 2 MG Nystatin 5 ml QID MT 01/29/25 12:00 02/03/25 08:52 5 ML Amiodarone HCl 200 mg Q12HR PO 02/01/25 10:00 02/03/25 08:51 200 MG Lactulose 30 ml DAILY PO 02/03/25 10:00 02/03/25 08:51 30 ML objective GENERAL: Alert and oriented x 3. No acute distress. EYES: PERRL, EOMI. Anicteric. HENT: Moist mucous membranes. LUNGS: Clear to auscultation bilaterally. CARDIOVASCULAR: Regular rate and rhythm. Systolic murmur. ABDOMEN: Ascites, large distended abdomen. EXTREMITIES: No edema. NEUROLOGIC: No focal neurological deficits. SKIN: Mottling to bilateral lower extremities. Bilateral feet cool to touch. laboratory and microbiology Laboratory Tests 02/03/25 06:15 Test 02/03/25 06:15 Range/Units Serum Glucose 264 H 74-106 mg/dL Problem List Atrial tachycardia, now in junctional rhythm. NSTEMI, likely type II. Chronic HFpEF with right-sided heart failure, NYHA class III. History of atrial fibrillation (on amiodarone and Eliquis). Chronic pericardial effusion. History of hypertension. Hyperlipidemia. Decompensated liver cirrhosis with refractory ascites. Ascites. Type 2 diabetes mellitus. End-stage renal disease on hemodialysis. Acute hepatic/metabolic/toxic encephalopathy. Acute hypoxic respiratory failure. Septic shock due to Enterococcus faecium. Blindness. Hearing loss. Assessment/Plan Continued all current supportive medical care. Amiodarone. Morphine for pain management. GI prophylactics. Vasopressors for hemodynamic support. Additional plan as per the hospital course. Critical care time of 45 minutes provided to include time spent evaluation of patient at bedside, when appropriate patient/family education for diagnosis, treatment plan, review of pertinent medical information and discussion of care with specialty providers and PCP. Dietary Evaluation Review Comments: 1) Nepro carb steady 240ml BID (ordered per ONS protocol) 2) Neprhro-Kaela 1 tab daily 3) Continue current plan of care Expected Outcomes/Goals: To meet >75% estimated needs Fu 3-5 days Plan discussed with: Patient SOREN MARTINEZ MD February 03, 2025 15:43
--- NOTE | 2025-02-03 23:08 | DVHPN2 ---
Progress Note - Dictate Date Seen: February 03, 2025 Medical Necessity Reason Pt with a Central, PICC or Fol: Yes The following are medically ne: Central Line Subjective Patient seen and examined at bedside. Remains on supplemental oxygen Overnight events reviewed. vital signs Vital Sign Date Time Temp Pulse Resp B/P (MAP) Pulse Ox O2 Delivery O2 Flow Rate FiO2 02/03/25 23:00 86 22 109/50 (69) 99 02/03/25 20:00 98.9 98.9 02/03/25 20:00 Nasal Cannula* 2 28 Total Intake and Output 02/02/25 02/02/25 02/03/25 15:00 23:00 07:00 Intake Total 46.19605 ml 173.437 ml 67.5 ml Output Total 0 ml Balance 46.27557 ml 173.437 ml 67.5 ml medications Current Medications Medications Dose Ordered Sig/Honey Route Start Time Stop Time Status Last Admin Dose Admin Diagnostic Test (Pha) 1 strip Q6HR 01/09/25 06:00 02/03/25 17:18 1 STRIP Insulin Human Regular Q6HR SC 01/09/25 06:00 02/03/25 17:26 3 UNITS Dextrose 50 ml UD PRN IV 01/09/25 00:30 01/18/25 10:40 50 ML Pantoprazole Sodium 40 mg DAILY IV 01/10/25 10:00 02/03/25 08:51 40 MG Ondansetron HCl 4 mg Q8HPRN PRN IV 01/09/25 10:30 01/30/25 20:04 4 MG Acetaminophen 650 mg Q6HP PRN PO 01/09/25 10:30 01/30/25 03:57 650 MG Ferrous Sulfate 325 mg BIDWM PO 01/10/25 18:00 02/03/25 08:52 325 MG Sevelamer HCl 800 mg TIDWM PO 01/10/25 18:00 02/03/25 08:52 800 MG Gabapentin 100 mg TID PO 01/11/25 14:00 02/03/25 22:31 100 MG Emollient Ointment 1 applic PRN PRN TOP 01/14/25 10:30 02/02/25 04:36 1 APPLIC Albumin Human 100 ml @ 100 mls/hr PRN PRN IV 01/15/25 10:30 02/02/25 15:55 100 MLS/HR Multivit/Ca Carb/ B Cmplx/FA/Prenat 1 tab DAILY PO 01/16/25 10:00 02/03/25 08:51 1 TAB Phenylephrine HCl 80 mg/Sodium Chloride 250 ml @ 7.5 mls/hr Q24H IV 01/19/25 12:00 Polyethylene Glycol 17 gm DAILYPRN PRN PO 01/21/25 12:15 01/25/25 09:59 17 GM Sennosides 8.6 mg QHSP PRN PO 01/21/25 12:15 01/24/25 23:56 8.6 MG Norepinephrine Bitartrate 32 mg/ Sodium Chloride 250 ml @ 0.938 mls/ hr Q24H IV 01/21/25 12:15 02/02/25 18:00 7.031 MLS/HR Midodrine 10 mg TID@0600,1200,1800 PO 01/24/25 06:00 02/02/25 17:00 10 MG Morphine Sulfate 2 mg Q2HPRN PRN IV 01/28/25 15:30 02/03/25 17:21 2 MG Nystatin 5 ml QID MT 01/29/25 12:00 02/03/25 22:31 5 ML Amiodarone HCl 200 mg Q12HR PO 02/01/25 10:00 02/03/25 22:32 200 MG Lactulose 30 ml DAILY PO 02/03/25 10:00 02/03/25 08:51 30 ML Hydromorphone HCl 0.5 mg Q2HPRN PRN IV 02/03/25 16:15 Glycopyrrolate 0.4 mg Q4HP PRN IV 02/03/25 16:15 Lorazepam 0.5 mg Q4HP PRN IV 02/03/25 16:15 objective Gen.: Patient lying in bed in no apparent distress. On supplemental oxygen. Head: Normocephalic, atraumatic. Eyes: EOMI/PERRLA. Ears: Normal hearing. Normal anatomy. Neck/trachea: Trachea midline, supple. Nose: Normal external anatomy. Mouth: Moist mucous membranes. Chest: Decreased air entry bilaterally. No wheezing or rhonchi. Cardiovascular: Positive S1, positive S2. Regular rate and rhythm. Abdomen: Positive bowel sounds in all 4 quadrants. Soft, non-tender, non- distended. : Deferred. Rectal: Deferred. Skin: Warm, dry. Intact. Extremities: 2+ radial pulses bilaterally. No lower extremity edema. Neuro: Awake, alert, oriented x3. No gross motor or sensory deficits. Cranial nerves II through XII intact. Gait not assessed. laboratory and microbiology Laboratory Tests 02/03/25 06:15 Test 02/03/25 06:15 Range/Units Serum Glucose 264 H 74-106 mg/dL Assessment/Plan Impression: Acute hypoxic respiratory failure Dependence on supplemental oxygen End-stage renal disease, on hemodialysis Heart failure with recent pericardial window due to recurrent pericardial effusions Refractory ascites due to cirrhosis with frequent paracentesis Diabetes mellitus Non-ST elevation [place] Events: Patient seen and examined at bedside. On 2 liters per minute nasal cannula Taper O2 as tolerated Remains on pressors for hemodynamic support On Levophed at 15 mcg/min Titrate to keep mean arterial pressure greater than 65 mmHg. On midodrine TID for blood pressure support. Incentive spirometry Amiodarone PO Nystatin for thrush HD per Nephrology Nephrology recs appreciated Monitor renal function Monitor hemoglobin - transfuse to keep greater than or equal to 7 g/dL Iron supplementation Pain control Avoid oversedation Protonix for GI prophylaxis Recommend LTAC. Poor prognosis S/p paracentesis on 01/13/25- 3.3 liters of ascitic fluid removed Received albumin post paracentesis - See separate procedure note for details. S/p paracentesis on 01/10/25 Labs and imaging reviewed. Rest of plan as noted below. Plan: Supplemental oxygen Titrate to keep O2 sats above 92%. Head of bed elevation Aspiration precautions Off steroids Pressors as necessary for hemodynamic support Titrate to keep mean arterial pressure greater than 65 mmHg. Accu-Cheks, ISS Hemodialysis per Nephrology Nephrology recommendations appreciated. Monitor renal function. Monitor electrolytes. Supplement as necessary. Monitor ins and outs. GI prophylaxis - Protonix DVT prophylaxis. Prognosis: Poor given patient's multiple co-morbidities. Condition: Critical Rest of plan per hospitalist and other consultants. A total of 35 minutes of critical care time was spent reviewing the patient record, examining the patient, making a diagnostic and therapeutic plan, discussing this plan with the medical personnel, following up on diagnostic studies and following the patient for clinical stability excluding any and all procedures. At least 50% of this time was spent in direct, [id number] contact. Thank you, PUPPY WALKER Merly, for allowing me to participate in this patient's care. Further recommendations will depend on the patient's clinical course. Please do not hesitate to contact me if you have any questions or concerns. This medical document was created using an electronic medical record system with [employer] dictation system. Although these documentations are being carefully reviewed, there may still be some phonetic and typographical changes. The errors are purely typographical, due to imperfection on the software program, and do not reflect any compromise in the patient's medical care. Dietary Evaluation Review Comments: 1) Nepro carb steady 240ml BID (ordered per ONS protocol) 2) Neprhro-Kaela 1 tab daily 3) Continue current plan of care Expected Outcomes/Goals: To meet >75% estimated needs Fu 3-5 days Plan discussed with: Other (LAVERNE Dorman) Critical Care Time(min): 35 MAYE HEATH MD February 03, 2025 23:08
[2025-02-04] VITALS (95 sets, daily range): BP systolic 92–125; BP diastolic 37–56; PULSE 70–94; RESP 5–31; TEMP 97.6–98.9; O2SAT 82–100
[2025-02-04] MEDS: HYDROmorphone HCL 2 MG/ML VL/or syr IV PRN (00:28)
[2025-02-04 05:47] LABS: Hemoglobin 8.1 g/dL (12.2-16.2); Mean Corpuscular Hemoglobin 32.1 pg (28.0-32.0); Mean Corpuscular Hgb Conc. 32.3 g/dL (32.0-36.0); Mean Corpuscular Volume 99.3 fL (80.0-100.0); Platelet Count (auto) 103 10^3/uL (140-450); Red Blood Cells 2.52 10^6/uL (4.0-5.20); Red Cell Distribution Width 17.3 % (11.8-14.3); White Blood Cell 9.9 10^3/uL (4.4-10.8)
[2025-02-04 05:55] LABS: Band Neutrophils % (manual) 0; Basophils % (manual) 0 (0.0-2.0); Blast Cells 0; Promyelocytes % 0; Reactive Lymphocytes 0
[2025-02-04 06:01] LABS: Anion Gap 12 (5-15); Carbon Dioxide 27 mmol/L (20-31); Chloride 101 mmol/L (98-107); Potassium 3.6 mmol/L (3.5-5.1); Sodium 140 mmol/L (136-145)
[2025-02-04 06:03] LABS: Calcium 9.4 mg/dL (8.7-10.4)
[2025-02-04 06:07] LABS: BUN/Creatinine Ratio 11.7 (10.0-20.0); Glucose 103 mg/dL (74-106)
[2025-02-04 06:10] LABS: Blood Urea Nitrogen 39 mg/dL (9-23)
[2025-02-04 06:50] LABS: Eosinophils % (manual) 1 (0-7); Lymphocytes % (manual) 6 (10.0-50.0); Metamyelocytes % 2; Monocytes % (manual) 6 (0-12); Myelocytes % 1; Polychromasia Slight
[2025-02-04 06:51] LABS: Large Platelets FEW; Platelet Estimate Decreased; Target Cell FEW
[2025-02-04 06:52] LABS: Stomatocytes Few
--- NOTE | 2025-02-04 09:46 | DVHPN2 ---
Subjective Patient encephalopathic Reviewed: Care Plan, H&P, Labs, Medications, Previous Orders, Radiology, Other (Consultations) Changes from previous H/P or p: No Changes General: Per HPI Objective Vitals Vital Signs Date Time Temp Pulse Resp B/P (MAP) Pulse Ox O2 Delivery O2 Flow Rate FiO2 02/04/25 09:15 75 13 106/46 (66) 100 02/04/25 08:00 98.9 98.9 02/04/25 07:30 Nasal Cannula* 2 28 Intake/Output Intake and Output 02/04/25 07:00 Intake Total 441.080 ml Output Total 0 ml Balance 441.080 ml Intake Oral 275 ml IV Total 166.080 ml Output Urine Total 0 ml # Bowel Movements 1 General Appearance: moderate distress, Other (Encephalopathic) HEENT: Atraumatic, Other (Blind) Lungs: Other (Decreased air entry bilateral) Cardiovascular: Normal S1, Normal S2, Other (Tracking failure) Abdomen: Normal bowel sounds, Soft, No tenderness, Other (Resolved ascites after paracentesis of almost 4 liters) Extremities: Other (Left upper extremity AV fistula with good bruit and thrill; dusky extremities) Neuro: Normal speech, Cranial nerves 3-12 NL, Other (Reviewed) Skin: Dry, Intact Psych/Mental Status: Mental status NL, Mood NL Medications Current Medications Medications Dose Ordered Sig/Honey Route Start Time Stop Time Status Last Admin Dose Admin Diagnostic Test (Pha) 1 strip Q6HR 01/09/25 06:00 02/04/25 06:00 1 STRIP Insulin Human Regular Q6HR SC 01/09/25 06:00 02/04/25 00:22 8 UNITS Dextrose 50 ml UD PRN IV 01/09/25 00:30 01/18/25 10:40 50 ML Pantoprazole Sodium 40 mg DAILY IV 01/10/25 10:00 02/03/25 08:51 40 MG Ondansetron HCl 4 mg Q8HPRN PRN IV 01/09/25 10:30 01/30/25 20:04 4 MG Acetaminophen 650 mg Q6HP PRN PO 01/09/25 10:30 01/30/25 03:57 650 MG Ferrous Sulfate 325 mg BIDWM PO 01/10/25 18:00 02/03/25 08:52 325 MG Sevelamer HCl 800 mg TIDWM PO 01/10/25 18:00 02/03/25 08:52 800 MG Gabapentin 100 mg TID PO 01/11/25 14:00 02/03/25 22:31 100 MG Emollient Ointment 1 applic PRN PRN TOP 01/14/25 10:30 02/02/25 04:36 1 APPLIC Albumin Human 100 ml @ 100 mls/hr PRN PRN IV 01/15/25 10:30 02/02/25 15:55 100 MLS/HR Multivit/Ca Carb/ B Cmplx/FA/Prenat 1 tab DAILY PO 01/16/25 10:00 02/03/25 08:51 1 TAB Phenylephrine HCl 80 mg/Sodium Chloride 250 ml @ 7.5 mls/hr Q24H IV 01/19/25 12:00 Polyethylene Glycol 17 gm DAILYPRN PRN PO 01/21/25 12:15 01/25/25 09:59 17 GM Sennosides 8.6 mg QHSP PRN PO 01/21/25 12:15 01/24/25 23:56 8.6 MG Norepinephrine Bitartrate 32 mg/ Sodium Chloride 250 ml @ 0.938 mls/ hr Q24H IV 01/21/25 12:15 02/04/25 04:43 6.563 MLS/HR Midodrine 10 mg TID@0600,1200,1800 PO 01/24/25 06:00 02/02/25 17:00 10 MG Morphine Sulfate 2 mg Q2HPRN PRN IV 01/28/25 15:30 02/03/25 17:21 2 MG Nystatin 5 ml QID MT 01/29/25 12:00 02/03/25 22:31 5 ML Amiodarone HCl 200 mg Q12HR PO 02/01/25 10:00 02/03/25 22:32 200 MG Lactulose 30 ml DAILY PO 02/03/25 10:00 02/03/25 08:51 30 ML Hydromorphone HCl 0.5 mg Q2HPRN PRN IV 02/03/25 16:15 02/04/25 00:28 0.5 MG Glycopyrrolate 0.4 mg Q4HP PRN IV 02/03/25 16:15 Lorazepam 0.5 mg Q4HP PRN IV 02/03/25 16:15 Laboratory Results Laboratory Tests 02/04/25 05:11 Chemistry Test 02/04/25 05:11 Calcium Level 9.4 mg/dL (8.7-10.4) Microbiology Microbiology Date/Time Source Procedure Growth Status 01/17/25 17:30 Blood Blood Culture - Final NO GROWTH AFTER 5 DAYS OF INCUBATION. Complete 01/10/25 12:45 Ascities Fluid Gram Stain - Final Complete 01/10/25 12:45 Ascities Fluid Body Fluid Culture - Final Complete 01/09/25 14:00 Sputum Gram Stain - Final Complete 01/09/25 14:00 Respiratory Culture - Final Presumptive Lisa albicans Complete 01/09/25 05:00 Nose MRSA Screen - Final Complete Labs and/or images reviewed: Labs reviewed by me, Image(s) reviewed by me Assessment/Plan Assessment/Plan Plan: -septic shock with VRE in the blood -cirrhosis with severe ascites -ESRD with hemodialysis -NSTEMI, probably type secondary to recent pericardiocentesis -legally blind -anemia of chronic disease - dyslipidemia -paroxysmal atrial fibrillation -possible infiltration of norepinephrine to right upper extremity with extravasation. Plan: Events: Discussion made over the weekend by covering hospitalist regarding goals of care. Patient now has HD that has been withdrawn. Patient continues to be chemical code currently on norepinephrine drip. -continue vasopressor therapy, currently on norepinephrine 11 micrograms/minute -continue nystatin if patient is willing to take medication -pain management: Continue current regimen -repeat labs in a.m. Critical care time spent with patient discussing and formulating plan of care: 40 minutes. This does not include time spent performing procedures. This medical document was created using an electronic medical record system with [employer] dictation system. Although this document has been carefully reviewed, there may still be some phonetic and typographical errors. These areas are purely typographical due to imperfections of the software programs, and do not reflect any compromise in the patient's medical care. Plan discussed with: Patient, Other (RN) Date of Service: February 04, 2025 Billing Provider: PAVEL GUAMAN NP Common Visit Codes: [id number] CARE 30-74 MIN PAVEL GUAMAN NP February 04, 2025 09:46
--- NOTE | 2025-02-04 16:04 | DVHPN2 ---
Progress Note Date Seen: February 04, 2025 Medical Necessity Reason Pt with a Central, PICC or Fol: Yes The following are medically ne: Central Line Subjective Patient reports: Other (events noted) Review of Systems: Deferred Objective vital signs Vital Sign Date Time Temp Pulse Resp B/P (MAP) Pulse Ox O2 Delivery O2 Flow Rate FiO2 02/04/25 14:46 82 02/04/25 13:48 12 100 Nasal Cannula* 2 28 02/04/25 12:45 110/48 (68) 02/04/25 12:00 97.8 97.8 Total Intake and Output 02/03/25 02/03/25 02/04/25 15:00 23:00 07:00 Intake Total 57.187 ml 131.093 ml 252.8 ml Output Total 0 ml 0 ml Balance 57.187 ml 131.093 ml 252.8 ml medications Current Medications Medications Dose Ordered Sig/Honey Route Start Time Stop Time Status Last Admin Dose Admin Diagnostic Test (Pha) 1 strip Q6HR 01/09/25 06:00 02/04/25 11:45 1 STRIP Insulin Human Regular Q6HR SC 01/09/25 06:00 02/04/25 00:22 8 UNITS Dextrose 50 ml UD PRN IV 01/09/25 00:30 01/18/25 10:40 50 ML Pantoprazole Sodium 40 mg DAILY IV 01/10/25 10:00 02/03/25 08:51 40 MG Ondansetron HCl 4 mg Q8HPRN PRN IV 01/09/25 10:30 01/30/25 20:04 4 MG Acetaminophen 650 mg Q6HP PRN PO 01/09/25 10:30 01/30/25 03:57 650 MG Ferrous Sulfate 325 mg BIDWM PO 01/10/25 18:00 02/03/25 08:52 325 MG Sevelamer HCl 800 mg TIDWM PO 01/10/25 18:00 02/03/25 08:52 800 MG Gabapentin 100 mg TID PO 01/11/25 14:00 02/03/25 22:31 100 MG Emollient Ointment 1 applic PRN PRN TOP 01/14/25 10:30 02/02/25 04:36 1 APPLIC Albumin Human 100 ml @ 100 mls/hr PRN PRN IV 01/15/25 10:30 02/02/25 15:55 100 MLS/HR Multivit/Ca Carb/ B Cmplx/FA/Prenat 1 tab DAILY PO 01/16/25 10:00 02/03/25 08:51 1 TAB Phenylephrine HCl 80 mg/Sodium Chloride 250 ml @ 7.5 mls/hr Q24H IV 01/19/25 12:00 Polyethylene Glycol 17 gm DAILYPRN PRN PO 01/21/25 12:15 01/25/25 09:59 17 GM Sennosides 8.6 mg QHSP PRN PO 01/21/25 12:15 01/24/25 23:56 8.6 MG Norepinephrine Bitartrate 32 mg/ Sodium Chloride 250 ml @ 0.938 mls/ hr Q24H IV 01/21/25 12:15 02/04/25 04:43 6.563 MLS/HR Midodrine 10 mg TID@0600,1200,1800 PO 01/24/25 06:00 02/02/25 17:00 10 MG Morphine Sulfate 2 mg Q2HPRN PRN IV 01/28/25 15:30 02/03/25 17:21 2 MG Nystatin 5 ml QID MT 01/29/25 12:00 02/03/25 22:31 5 ML Amiodarone HCl 200 mg Q12HR PO 02/01/25 10:00 02/03/25 22:32 200 MG Lactulose 30 ml DAILY PO 02/03/25 10:00 02/03/25 08:51 30 ML Hydromorphone HCl 0.5 mg Q2HPRN PRN IV 02/03/25 16:15 02/04/25 00:28 0.5 MG Glycopyrrolate 0.4 mg Q4HP PRN IV 02/03/25 16:15 Lorazepam 0.5 mg Q4HP PRN IV 02/03/25 16:15 Examination: GENERAL:Abnormal, MSK:Abnormal (edema +), NEURO:Abnormal laboratory and microbiology Laboratory Tests 02/04/25 05:11 Test 02/04/25 05:11 Range/Units Serum Glucose 103 74-106 mg/dL Microbiology Date/Time Source Procedure Growth Status 01/17/25 17:30 Blood Blood Culture - Final NO GROWTH AFTER 5 DAYS OF INCUBATION. Complete 01/10/25 12:45 Ascities Fluid Gram Stain - Final Complete 01/10/25 12:45 Ascities Fluid Body Fluid Culture - Final Complete 01/09/25 14:00 Sputum Gram Stain - Final Complete 01/09/25 14:00 Respiratory Culture - Final Presumptive Lisa albicans Complete 01/09/25 05:00 Nose MRSA Screen - Final Complete Problem List/Assessment/Plan Problem List/Assessment/Plan End-stage renal disease on hemodialysis Heart failure with recent pericardial drainage due to recurrent pericardial effusions decompensated cirrhosis Diabetes Shock cardiogenic vs septic hyperkalemia VRE bacteremia recs per hospitalist and RN bedside patient son ,family,pt made decision yesterday saying no more HD going forward , will respect their wishes and I will sign off the case ,,we will not schedule any HD on levophed Plan discussed with: Other Dietary Evaluation Review Comments: 1) Nepro carb steady 240ml BID (ordered per [facility] protocol) 2) Neprhro-Kaela 1 tab daily 3) Continue current plan of care Expected Outcomes/Goals: To meet >75% estimated needs Fu 3-5 days LARISA MCKEON MD February 04, 2025 16:04
--- NOTE | 2025-02-04 22:15 | DVHPN2 ---
Progress Note - Dictate Date Seen: February 04, 2025 Medical Necessity Reason Pt with a Central, PICC or Fol: Yes The following are medically ne: Central Line Subjective Patient was seen and evaluated in follow up in the ICU. Patient is encephalopathic. Patient is on vasopressors support. Patients son/family made decision yesterday to discontinue HD. vital signs Vital Sign Date Time Temp Pulse Resp B/P (MAP) Pulse Ox O2 Delivery O2 Flow Rate FiO2 02/04/25 20:42 77 16 98/41 02/04/25 20:00 97 Nasal Cannula* 2 28 02/04/25 16:00 98.6 98.6 Total Intake and Output 02/03/25 02/03/25 02/04/25 15:00 23:00 07:00 Intake Total 57.187 ml 131.093 ml 252.8 ml Output Total 0 ml 0 ml Balance 57.187 ml 131.093 ml 252.8 ml medications Current Medications Medications Dose Ordered Sig/Honey Route Start Time Stop Time Status Last Admin Dose Admin Diagnostic Test (Pha) 1 strip Q6HR 01/09/25 06:00 02/04/25 18:03 1 STRIP Insulin Human Regular Q6HR SC 01/09/25 06:00 02/04/25 18:04 8 UNITS Dextrose 50 ml UD PRN IV 01/09/25 00:30 01/18/25 10:40 50 ML Pantoprazole Sodium 40 mg DAILY IV 01/10/25 10:00 02/03/25 08:51 40 MG Ondansetron HCl 4 mg Q8HPRN PRN IV 01/09/25 10:30 01/30/25 20:04 4 MG Acetaminophen 650 mg Q6HP PRN PO 01/09/25 10:30 01/30/25 03:57 650 MG Ferrous Sulfate 325 mg BIDWM PO 01/10/25 18:00 02/04/25 18:03 325 MG Sevelamer HCl 800 mg TIDWM PO 01/10/25 18:00 02/04/25 18:03 800 MG Gabapentin 100 mg TID PO 01/11/25 14:00 02/03/25 22:31 100 MG Emollient Ointment 1 applic PRN PRN TOP 01/14/25 10:30 02/02/25 04:36 1 APPLIC Albumin Human 100 ml @ 100 mls/hr PRN PRN IV 01/15/25 10:30 02/02/25 15:55 100 MLS/HR Multivit/Ca Carb/ B Cmplx/FA/Prenat 1 tab DAILY PO 01/16/25 10:00 02/03/25 08:51 1 TAB Phenylephrine HCl 80 mg/Sodium Chloride 250 ml @ 7.5 mls/hr Q24H IV 01/19/25 12:00 Polyethylene Glycol 17 gm DAILYPRN PRN PO 01/21/25 12:15 01/25/25 09:59 17 GM Sennosides 8.6 mg QHSP PRN PO 01/21/25 12:15 01/24/25 23:56 8.6 MG Norepinephrine Bitartrate 32 mg/ Sodium Chloride 250 ml @ 0.938 mls/ hr Q24H IV 01/21/25 12:15 02/04/25 04:43 6.563 MLS/HR Midodrine 10 mg TID@0600,1200,1800 PO 01/24/25 06:00 02/04/25 18:03 10 MG Morphine Sulfate 2 mg Q2HPRN PRN IV 01/28/25 15:30 02/04/25 16:24 2 MG Nystatin 5 ml QID MT 01/29/25 12:00 02/04/25 18:03 5 ML Amiodarone HCl 200 mg Q12HR PO 02/01/25 10:00 02/03/25 22:32 200 MG Lactulose 30 ml DAILY PO 02/03/25 10:00 02/03/25 08:51 30 ML Hydromorphone HCl 0.5 mg Q2HPRN PRN IV 02/03/25 16:15 02/04/25 20:42 0.5 MG Glycopyrrolate 0.4 mg Q4HP PRN IV 02/03/25 16:15 Lorazepam 0.5 mg Q4HP PRN IV 02/03/25 16:15 objective GENERAL: Alert and oriented x 2. No acute distress. EYES: PERRL, EOMI. Anicteric. HENT: Moist mucous membranes. LUNGS: Clear to auscultation bilaterally. CARDIOVASCULAR: Regular rate and rhythm. Systolic murmur. ABDOMEN: Ascites, large distended abdomen. EXTREMITIES: No edema. NEUROLOGIC: No focal neurological deficits. SKIN: Mottling to bilateral lower extremities. Bilateral feet cool to touch. laboratory and microbiology Laboratory Tests 02/04/25 05:11 Test 02/04/25 05:11 Range/Units Serum Glucose 103 74-106 mg/dL Problem List Atrial tachycardia, now in junctional rhythm. NSTEMI, likely type II. Chronic HFpEF with right-sided heart failure, NYHA class III. History of atrial fibrillation (on amiodarone and Eliquis). Chronic pericardial effusion. History of hypertension. Hyperlipidemia. Decompensated liver cirrhosis with refractory ascites. Ascites. Type 2 diabetes mellitus. End-stage renal disease on hemodialysis. Acute hepatic/metabolic/toxic encephalopathy. Acute hypoxic respiratory failure. Septic shock due to Enterococcus faecium. Blindness. Hearing loss. Assessment/Plan Continued all current supportive medical care. Amiodarone. Morphine for pain management. GI prophylactics. Vasopressors for hemodynamic support. Additional plan as per the hospital course. Critical care time of 45 minutes provided to include time spent evaluation of patient at bedside, when appropriate patient/family education for diagnosis, treatment plan, review of pertinent medical information and discussion of care with specialty providers and PCP. Dietary Evaluation Review Comments: 1) Nepro carb steady 240ml BID (ordered per [facility] protocol) 2) Neprhro-Kaela 1 tab daily 3) Continue current plan of care Expected Outcomes/Goals: To meet >75% estimated needs Fu 3-5 days Plan discussed with: SOREN Childs MD February 04, 2025 22:15
--- NOTE | 2025-02-04 22:47 | DVHPN2 ---
Progress Note - Dictate Date Seen: February 04, 2025 Medical Necessity Reason Pt with a Central, PICC or Fol: Yes The following are medically ne: Central Line Subjective Patient seen and examined at bedside. Remains on supplemental oxygen Overnight events reviewed. vital signs Vital Sign Date Time Temp Pulse Resp B/P (MAP) Pulse Ox O2 Delivery O2 Flow Rate FiO2 02/04/25 20:42 77 16 98/41 02/04/25 20:00 97 Nasal Cannula* 2 28 02/04/25 16:00 98.6 98.6 Total Intake and Output 02/03/25 02/03/25 02/04/25 15:00 23:00 07:00 Intake Total 57.187 ml 131.093 ml 252.8 ml Output Total 0 ml 0 ml Balance 57.187 ml 131.093 ml 252.8 ml medications Current Medications Medications Dose Ordered Sig/Honey Route Start Time Stop Time Status Last Admin Dose Admin Diagnostic Test (Pha) 1 strip Q6HR 01/09/25 06:00 02/04/25 18:03 1 STRIP Insulin Human Regular Q6HR SC 01/09/25 06:00 02/04/25 18:04 8 UNITS Dextrose 50 ml UD PRN IV 01/09/25 00:30 01/18/25 10:40 50 ML Pantoprazole Sodium 40 mg DAILY IV 01/10/25 10:00 02/03/25 08:51 40 MG Ondansetron HCl 4 mg Q8HPRN PRN IV 01/09/25 10:30 01/30/25 20:04 4 MG Acetaminophen 650 mg Q6HP PRN PO 01/09/25 10:30 01/30/25 03:57 650 MG Ferrous Sulfate 325 mg BIDWM PO 01/10/25 18:00 02/04/25 18:03 325 MG Sevelamer HCl 800 mg TIDWM PO 01/10/25 18:00 02/04/25 18:03 800 MG Gabapentin 100 mg TID PO 01/11/25 14:00 02/03/25 22:31 100 MG Emollient Ointment 1 applic PRN PRN TOP 01/14/25 10:30 02/02/25 04:36 1 APPLIC Albumin Human 100 ml @ 100 mls/hr PRN PRN IV 01/15/25 10:30 02/02/25 15:55 100 MLS/HR Multivit/Ca Carb/ B Cmplx/FA/Prenat 1 tab DAILY PO 01/16/25 10:00 02/03/25 08:51 1 TAB Phenylephrine HCl 80 mg/Sodium Chloride 250 ml @ 7.5 mls/hr Q24H IV 01/19/25 12:00 Polyethylene Glycol 17 gm DAILYPRN PRN PO 01/21/25 12:15 01/25/25 09:59 17 GM Sennosides 8.6 mg QHSP PRN PO 01/21/25 12:15 01/24/25 23:56 8.6 MG Norepinephrine Bitartrate 32 mg/ Sodium Chloride 250 ml @ 0.938 mls/ hr Q24H IV 01/21/25 12:15 02/04/25 04:43 6.563 MLS/HR Midodrine 10 mg TID@0600,1200,1800 PO 01/24/25 06:00 02/04/25 18:03 10 MG Morphine Sulfate 2 mg Q2HPRN PRN IV 01/28/25 15:30 02/04/25 16:24 2 MG Nystatin 5 ml QID MT 01/29/25 12:00 02/04/25 18:03 5 ML Amiodarone HCl 200 mg Q12HR PO 02/01/25 10:00 02/03/25 22:32 200 MG Lactulose 30 ml DAILY PO 02/03/25 10:00 02/03/25 08:51 30 ML Hydromorphone HCl 0.5 mg Q2HPRN PRN IV 02/03/25 16:15 02/04/25 20:42 0.5 MG Glycopyrrolate 0.4 mg Q4HP PRN IV 02/03/25 16:15 Lorazepam 0.5 mg Q4HP PRN IV 02/03/25 16:15 objective Gen.: Patient lying in bed in no apparent distress. On supplemental oxygen. Head: Normocephalic, atraumatic. Eyes: EOMI/PERRLA. Ears: Normal hearing. Normal anatomy. Neck/trachea: Trachea midline, supple. Nose: Normal external anatomy. Mouth: Moist mucous membranes. Chest: Decreased air entry bilaterally. No wheezing or rhonchi. Cardiovascular: Positive S1, positive S2. Regular rate and rhythm. Abdomen: Positive bowel sounds in all 4 quadrants. Soft, non-tender, non- distended. : Deferred. Rectal: Deferred. Skin: Warm, dry. Intact. Extremities: 2+ radial pulses bilaterally. No lower extremity edema. Neuro: Awake, alert, oriented x3. No gross motor or sensory deficits. Cranial nerves II through XII intact. Gait not assessed. laboratory and microbiology Laboratory Tests 02/04/25 05:11 Test 02/04/25 05:11 Range/Units Serum Glucose 103 74-106 mg/dL Assessment/Plan Impression: Acute hypoxic respiratory failure Dependence on supplemental oxygen End-stage renal disease, on hemodialysis Heart failure with recent pericardial window due to recurrent pericardial effusions Refractory ascites due to cirrhosis with frequent paracentesis Diabetes mellitus Non-ST elevation NE Events: Patient seen and examined at bedside. On 2 liters per minute nasal cannula Taper O2 as tolerated Remains on pressors for hemodynamic support On Levophed at 14 mcg/min Titrate to keep mean arterial pressure greater than 65 mmHg. On midodrine TID for blood pressure support. Incentive spirometry Amiodarone PO Nystatin for thrush HD per Nephrology Nephrology recs appreciated Monitor renal function Monitor hemoglobin - stable at 8.1 g/dL Transfuse to keep greater than or equal to 7 g/dL Iron supplementation Accu-Cheks, ISS Pain control Avoid oversedation Protonix for GI prophylaxis Pending HD procedure, family deciding if they want to continue P[facility]BUILDER. Recommend LTAC. Poor prognosis S/p paracentesis on 01/13/25- 3.3 liters of ascitic fluid removed Received albumin post paracentesis - See separate procedure note for details. S/p paracentesis on 01/10/25 Labs and imaging reviewed. Rest of plan as noted below. Plan: Supplemental oxygen Titrate to keep O2 sats above 92%. Head of bed elevation Aspiration precautions Off steroids Pressors as necessary for hemodynamic support Titrate to keep mean arterial pressure greater than 65 mmHg. Accu-Cheks, ISS Hemodialysis per Nephrology Nephrology recommendations appreciated. Monitor renal function. Monitor electrolytes. Supplement as necessary. Monitor ins and outs. GI prophylaxis - Protonix DVT prophylaxis. Prognosis: Poor given patient's multiple co-morbidities. Condition: Critical Rest of plan per hospitalist and other consultants. A total of 35 minutes of critical care time was spent reviewing the patient record, examining the patient, making a diagnostic and therapeutic plan, discussing this plan with the medical personnel, following up on diagnostic studies and following the patient for clinical stability excluding any and all procedures. At least 50% of this time was spent in direct, [id number] contact. Thank you, ELLIE Moreland, for allowing me to participate in this patient's care. Further recommendations will depend on the patient's clinical course. Please do not hesitate to contact me if you have any questions or concerns. This medical document was created using an electronic medical record system with [employer] dictation system. Although these documentations are being carefully reviewed, there may still be some phonetic and typographical changes. The errors are purely typographical, due to imperfection on the software program, and do not reflect any compromise in the patient's medical care. Dietary Evaluation Review Comments: 1) Nepro carb steady 240ml BID (ordered per [facility] protocol) 2) Neprhro-Kaela 1 tab daily 3) Continue current plan of care Expected Outcomes/Goals: To meet >75% estimated needs Fu 3-5 days Plan discussed with: Other (LAVERNE Rivas) Critical Care Time(min): 35 MAYE HEATH MD February 04, 2025 22:47
[2025-02-05] VITALS (96 sets, daily range): BP systolic 90–150; BP diastolic 16–77; PULSE 70–148; RESP 7–34; TEMP 97.9–100.1; O2SAT 84–100
[2025-02-05 06:39] LABS: Basophils # (auto) 0 10 ^3/uL (0-0.2); Eosinophils # (auto) 0.2 10 ^3/uL (0-0.8); Hemoglobin 8.1 g/dL (12.2-16.2); Monocytes # (auto) 1.3 10 ^3/uL (0-1.3); Nucleated Red Blood Cells % 0.2 %
[2025-02-05 06:43] LABS: Basophils % (auto) 0.3 % (0.0-2.0); Hematocrit 24.3 % (36.0-46.0); Lymphocytes # (auto) 0.4 10 ^3/uL (0.4-5.4); Lymphocytes % (auto) 3.6 % (10.0-50.0); Mean Corpuscular Hemoglobin 32.6 pg (28.0-32.0); Mean Corpuscular Hgb Conc. 33.2 g/dL (32.0-36.0); Mean Corpuscular Volume 98.1 fL (80.0-100.0); Monocytes % (auto) 11.3 % (0.0-12.0); Neutrophils # (auto) 9.8 10 ^3/uL (1.6-8.6); Neutrophils % (auto) 82.8 % (37.0-80.0); Platelet Count (auto) 108 10^3/uL (140-450); Red Blood Cells 2.48 10^6/uL (4.0-5.20); Red Cell Distribution Width 17.8 % (11.8-14.3); White Blood Cell 11.8 10^3/uL (4.4-10.8)
[2025-02-05 06:58] LABS: Alanine Aminotransferase 22 U/L (7-40); Albumin 3.9 g/dL (3.2-4.8); Anion Gap 12 (5-15); Aspartate Aminotransferase 18 U/L (13-40); Carbon Dioxide 27 mmol/L (20-31); Magnesium 2.5 mg/dL (1.6-2.6); Potassium 4.1 mmol/L (3.5-5.1)
[2025-02-05 07:06] LABS: Alkaline Phosphatase 186 U/L (46-116); Bilirubin, Total 1.5 mg/dL (0.2-1.0); Blood Urea Nitrogen 52 mg/dL (9-23); Calcium 8.5 mg/dL (8.7-10.4); Chloride 97 mmol/L (98-107); Glucose 53 mg/dL (74-106); Sodium 136 mmol/L (136-145); Total Protein 5.7 g/dL (5.7-8.2)
--- NOTE | 2025-02-05 09:28 | DVHPN2 ---
Subjective Patient encephalopathic Reviewed: Care Plan, H&P, Labs, Medications, Previous Orders, Radiology, Other (Consultations) Changes from previous H/P or p: No Changes General: Per HPI Objective Vitals Vital Signs Date Time Temp Pulse Resp B/P (MAP) Pulse Ox O2 Delivery O2 Flow Rate FiO2 02/05/25 06:45 91 11 113/53 (73) 91 02/05/25 06:00 Nasal Cannula* 2 28 02/05/25 04:00 98.0 98.0 Intake/Output Intake and Output 02/05/25 07:00 Intake Total 943.196 ml Output Total 0 ml Balance 943.196 ml Intake Oral 800 ml IV Total 143.196 ml Output Urine Total 0 ml General Appearance: moderate distress, Other (Encephalopathic) HEENT: Atraumatic, Other (Blind) Lungs: Other (Decreased air entry bilateral) Cardiovascular: Normal S1, Normal S2, Other (Tracking failure) Abdomen: Normal bowel sounds, Soft, No tenderness, Other (Resolved ascites after paracentesis of almost 4 liters) Musculoskeletal: Weak motor strength RUE, Weak motor strength LUE, Weak motor strength RLE, Weak motor strength LLE Extremities: Other (Left upper extremity AV fistula with good bruit and thrill; dusky extremities) Neuro: Normal speech, Cranial nerves 3-12 NL, Other (Reviewed) Skin: Dry, Intact Psych/Mental Status: Mental status NL, Mood NL Medications Current Medications Medications Dose Ordered Sig/Honey Route Start Time Stop Time Status Last Admin Dose Admin Diagnostic Test (Pha) 1 strip Q6HR 01/09/25 06:00 02/05/25 06:10 1 STRIP Insulin Human Regular Q6HR SC 01/09/25 06:00 02/04/25 23:44 4 UNITS Dextrose 50 ml UD PRN IV 01/09/25 00:30 01/18/25 10:40 50 ML Pantoprazole Sodium 40 mg DAILY IV 01/10/25 10:00 02/03/25 08:51 40 MG Ondansetron HCl 4 mg Q8HPRN PRN IV 01/09/25 10:30 01/30/25 20:04 4 MG Acetaminophen 650 mg Q6HP PRN PO 01/09/25 10:30 01/30/25 03:57 650 MG Ferrous Sulfate 325 mg BIDWM PO 01/10/25 18:00 02/04/25 18:03 325 MG Sevelamer HCl 800 mg TIDWM PO 01/10/25 18:00 02/04/25 18:03 800 MG Gabapentin 100 mg TID PO 01/11/25 14:00 02/05/25 06:10 100 MG Emollient Ointment 1 applic PRN PRN TOP 01/14/25 10:30 02/02/25 04:36 1 APPLIC Albumin Human 100 ml @ 100 mls/hr PRN PRN IV 01/15/25 10:30 02/02/25 15:55 100 MLS/HR Multivit/Ca Carb/ B Cmplx/FA/Prenat 1 tab DAILY PO 01/16/25 10:00 02/03/25 08:51 1 TAB Phenylephrine HCl 80 mg/Sodium Chloride 250 ml @ 7.5 mls/hr Q24H IV 01/19/25 12:00 Polyethylene Glycol 17 gm DAILYPRN PRN PO 01/21/25 12:15 01/25/25 09:59 17 GM Sennosides 8.6 mg QHSP PRN PO 01/21/25 12:15 01/24/25 23:56 8.6 MG Norepinephrine Bitartrate 32 mg/ Sodium Chloride 250 ml @ 0.938 mls/ hr Q24H IV 01/21/25 12:15 02/04/25 04:43 6.563 MLS/HR Midodrine 10 mg TID@0600,1200,1800 PO 01/24/25 06:00 02/05/25 06:10 10 MG Morphine Sulfate 2 mg Q2HPRN PRN IV 01/28/25 15:30 02/04/25 16:24 2 MG Nystatin 5 ml QID MT 01/29/25 12:00 02/05/25 06:09 5 ML Amiodarone HCl 200 mg Q12HR PO 02/01/25 10:00 02/04/25 23:43 200 MG Lactulose 30 ml DAILY PO 02/03/25 10:00 02/03/25 08:51 30 ML Hydromorphone HCl 0.5 mg Q2HPRN PRN IV 02/03/25 16:15 02/05/25 02:51 0.5 MG Glycopyrrolate 0.4 mg Q4HP PRN IV 02/03/25 16:15 Lorazepam 0.5 mg Q4HP PRN IV 02/03/25 16:15 Laboratory Results Laboratory Tests 02/05/25 05:00 Chemistry Test 02/05/25 05:00 Albumin 3.9 g/dL (3.2-4.8) Calcium Level 8.5 mg/dL (8.7-10.4) L Magnesium Level 2.5 mg/dL (1.6-2.6) Total Protein 5.7 g/dL (5.7-8.2) LFT Test 02/05/25 05:00 Alanine Aminotransferase (ALT) 22 U/L (7-40) Alkaline Phosphatase 186 U/L (46-116) H Aspartate Amino Transferase (AST) 18 U/L (13-40) Total Bilirubin 1.5 mg/dL (0.2-1.0) H Microbiology Microbiology Date/Time Source Procedure Growth Status 01/17/25 17:30 Blood Blood Culture - Final NO GROWTH AFTER 5 DAYS OF INCUBATION. Complete 01/10/25 12:45 Ascities Fluid Gram Stain - Final Complete 01/10/25 12:45 Ascities Fluid Body Fluid Culture - Final Complete 01/09/25 14:00 Sputum Gram Stain - Final Complete 01/09/25 14:00 Respiratory Culture - Final Presumptive Lisa albicans Complete 01/09/25 05:00 Nose MRSA Screen - Final Complete Labs and/or images reviewed: Labs reviewed by me, Image(s) reviewed by me Assessment/Plan Assessment/Plan Plan: -septic shock with VRE in the blood -cirrhosis with severe ascites -ESRD with hemodialysis -NSTEMI, probably type secondary to recent pericardiocentesis -legally blind -anemia of chronic disease - dyslipidemia -paroxysmal atrial fibrillation -possible infiltration of norepinephrine to right upper extremity with extravasation. Plan: Events: Yesterday evening, patient has signs of serious rescinded patient's previous decision on holding hemodialysis.. Patient now to be placed back on hemodialysis. Patient presents with an encephalopathy today. Discussed case with patient's son, Reji. Also presented to Reji the possibility of LTAC placement. -social service consultation -continue vasopressor therapy, currently on norepinephrine 11 micrograms/minute -continue nystatin if patient is willing to take medication -pain management: Continue current regimen -repeat labs in a.m. Critical care time spent with patient discussing and formulating plan of care: 90 minutes. This does not include time spent performing procedures. This medical document was created using an electronic medical record system with [employer] computerized dictation system. Although this document has been carefully reviewed, there may still be some phonetic and typographical errors. These areas are purely typographical due to imperfections of the software programs, and do not reflect any compromise in the patient's medical care. 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
--- NOTE | 2025-02-05 12:52 | DVHPN2 ---
Progress Note Date Seen: February 05, 2025 Medical Necessity Reason Pt with a Central, PICC or Fol: Yes The following are medically ne: Central Line Subjective Patient reports: Other (poor historian) Review of Systems: Deferred Objective vital signs Vital Sign Date Time Temp Pulse Resp B/P (MAP) Pulse Ox O2 Delivery O2 Flow Rate FiO2 02/05/25 12:00 86 02/05/25 12:00 14 96 Nasal Cannula* 2 28 02/05/25 10:30 93/39 (57) 02/05/25 08:00 100.1 100.1 Total Intake and Output 02/04/25 02/04/25 02/05/25 15:00 23:00 07:00 Intake Total 51.712 ml 500.484 ml 396.6 ml Output Total 0 ml 0 ml Balance 51.712 ml 500.484 ml 396.6 ml medications Current Medications Medications Dose Ordered Sig/Honey Route Start Time Stop Time Status Last Admin Dose Admin Diagnostic Test (Pha) 1 strip Q6HR 01/09/25 06:00 02/05/25 06:10 1 STRIP Insulin Human Regular Q6HR SC 01/09/25 06:00 02/05/25 11:45 4 UNITS Dextrose 50 ml UD PRN IV 01/09/25 00:30 01/18/25 10:40 50 ML Pantoprazole Sodium 40 mg DAILY IV 01/10/25 10:00 02/05/25 09:18 40 MG Ondansetron HCl 4 mg Q8HPRN PRN IV 01/09/25 10:30 01/30/25 20:04 4 MG Acetaminophen 650 mg Q6HP PRN PO 01/09/25 10:30 01/30/25 03:57 650 MG Ferrous Sulfate 325 mg BIDWM PO 01/10/25 18:00 02/04/25 18:03 325 MG Sevelamer HCl 800 mg TIDWM PO 01/10/25 18:00 02/04/25 18:03 800 MG Gabapentin 100 mg TID PO 01/11/25 14:00 02/05/25 06:10 100 MG Emollient Ointment 1 applic PRN PRN TOP 01/14/25 10:30 02/02/25 04:36 1 APPLIC Albumin Human 100 ml @ 100 mls/hr PRN PRN IV 01/15/25 10:30 02/02/25 15:55 100 MLS/HR Multivit/Ca Carb/ B Cmplx/FA/Prenat 1 tab DAILY PO 01/16/25 10:00 02/05/25 09:12 1 TAB Phenylephrine HCl 80 mg/Sodium Chloride 250 ml @ 7.5 mls/hr Q24H IV 01/19/25 12:00 Polyethylene Glycol 17 gm DAILYPRN PRN PO 01/21/25 12:15 01/25/25 09:59 17 GM Sennosides 8.6 mg QHSP PRN PO 01/21/25 12:15 01/24/25 23:56 8.6 MG Norepinephrine Bitartrate 32 mg/ Sodium Chloride 250 ml @ 0.938 mls/ hr Q24H IV 01/21/25 12:15 02/04/25 04:43 6.563 MLS/HR Midodrine 10 mg TID@0600,1200,1800 PO 01/24/25 06:00 02/05/25 06:10 10 MG Morphine Sulfate 2 mg Q2HPRN PRN IV 01/28/25 15:30 02/04/25 16:24 2 MG Nystatin 5 ml QID MT 01/29/25 12:00 02/05/25 06:09 5 ML Amiodarone HCl 200 mg Q12HR PO 02/01/25 10:00 02/05/25 09:11 200 MG Lactulose 30 ml DAILY PO 02/03/25 10:00 02/03/25 08:51 30 ML Hydromorphone HCl 0.5 mg Q2HPRN PRN IV 02/03/25 16:15 02/05/25 02:51 0.5 MG Glycopyrrolate 0.4 mg Q4HP PRN IV 02/03/25 16:15 Lorazepam 0.5 mg Q4HP PRN IV 02/03/25 16:15 Examination: GENERAL:Abnormal, MSK:Abnormal, SKIN:Abnormal, NEURO:Abnormal laboratory and microbiology Laboratory Tests 02/05/25 05:00 Test 02/05/25 05:00 Range/Units Serum Glucose 53 L 74-106 mg/dL Microbiology Date/Time Source Procedure Growth Status 01/17/25 17:30 Blood Blood Culture - Final NO GROWTH AFTER 5 DAYS OF INCUBATION. Complete 01/10/25 12:45 Ascities Fluid Gram Stain - Final Complete 01/10/25 12:45 Ascities Fluid Body Fluid Culture - Final Complete 01/09/25 14:00 Sputum Gram Stain - Final Complete 01/09/25 14:00 Respiratory Culture - Final Presumptive Lisa albicans Complete 01/09/25 05:00 Nose MRSA Screen - Final Complete Problem List/Assessment/Plan Problem List/Assessment/Plan End-stage renal disease on hemodialysis Heart failure with recent pericardial drainage due to recurrent pericardial effusions decompensated cirrhosis Diabetes Shock cardiogenic vs septic hyperkalemia VRE bacteremia recs HD tomorrow family changed mind on levo 12 Plan discussed with: Other Dietary Evaluation Review Comments: 1) Nepro carb steady 240ml BID (ordered per ONS protocol) 2) Neprhro-Kaela 1 tab daily 3) Continue current plan of care Expected Outcomes/Goals: To meet >75% estimated needs Fu 3-5 days LARISA MCKEON MD February 05, 2025 12:52
[2025-02-05] MEDS: SORE THROAT SPRAY 6OZ BOTTLE MT PRN (17:27)
--- NOTE | 2025-02-05 21:45 | DVHPN2 ---
Progress Note - Dictate Date Seen: February 05, 2025 Medical Necessity Reason Pt with a Central, PICC or Fol: Yes The following are medically ne: Central Line Subjective Patient was seen and evaluated in follow up in the ICU. Patient is encephalopathic. Patient is receiving Levophed drip. Family and patient have changed their mind and would like to continue HD. Family re considering LTAC placement. 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 vital signs Vital Sign Date Time Temp Pulse Resp B/P (MAP) Pulse Ox O2 Delivery O2 Flow Rate FiO2 02/05/25 20:45 75 10 110/ (36) 99 110/47 (68) 02/05/25 20:00 Nasal Cannula* 2 28 02/05/25 20:00 98.3 98.3 Total Intake and Output 02/04/25 02/04/25 02/05/25 15:00 23:00 07:00 Intake Total 51.712 ml 500.484 ml 396.6 ml Output Total 0 ml 0 ml Balance 51.712 ml 500.484 ml 396.6 ml medications Current Medications Medications Dose Ordered Sig/Honey Route Start Time Stop Time Status Last Admin Dose Admin Diagnostic Test (Pha) 1 strip Q6HR 01/09/25 06:00 02/05/25 17:30 1 STRIP Insulin Human Regular Q6HR SC 01/09/25 06:00 02/05/25 17:28 6 UNITS Dextrose 50 ml UD PRN IV 01/09/25 00:30 01/18/25 10:40 50 ML Pantoprazole Sodium 40 mg DAILY IV 01/10/25 10:00 02/05/25 09:18 40 MG Ondansetron HCl 4 mg Q8HPRN PRN IV 01/09/25 10:30 01/30/25 20:04 4 MG Acetaminophen 650 mg Q6HP PRN PO 01/09/25 10:30 01/30/25 03:57 650 MG Ferrous Sulfate 325 mg BIDWM PO 01/10/25 18:00 02/04/25 18:03 325 MG Sevelamer HCl 800 mg TIDWM PO 01/10/25 18:00 02/04/25 18:03 800 MG Gabapentin 100 mg TID PO 01/11/25 14:00 02/05/25 06:10 100 MG Emollient Ointment 1 applic PRN PRN TOP 01/14/25 10:30 02/02/25 04:36 1 APPLIC Albumin Human 100 ml @ 100 mls/hr PRN PRN IV 01/15/25 10:30 02/02/25 15:55 100 MLS/HR Multivit/Ca Carb/ B Cmplx/FA/Prenat 1 tab DAILY PO 01/16/25 10:00 02/05/25 09:12 1 TAB Phenylephrine HCl 80 mg/Sodium Chloride 250 ml @ 7.5 mls/hr Q24H IV 01/19/25 12:00 Polyethylene Glycol 17 gm DAILYPRN PRN PO 01/21/25 12:15 01/25/25 09:59 17 GM Sennosides 8.6 mg QHSP PRN PO 01/21/25 12:15 01/24/25 23:56 8.6 MG Norepinephrine Bitartrate 32 mg/ Sodium Chloride 250 ml @ 0.938 mls/ hr Q24H IV 01/21/25 12:15 02/05/25 13:50 5.625 MLS/HR Midodrine 10 mg TID@0600,1200,1800 PO 01/24/25 06:00 02/05/25 17:34 10 MG Morphine Sulfate 2 mg Q2HPRN PRN IV 01/28/25 15:30 02/04/25 16:24 2 MG Nystatin 5 ml QID MT 01/29/25 12:00 02/05/25 17:33 5 ML Amiodarone HCl 200 mg Q12HR PO 02/01/25 10:00 02/05/25 09:11 200 MG Lactulose 30 ml DAILY PO 02/03/25 10:00 02/03/25 08:51 30 ML Hydromorphone HCl 0.5 mg Q2HPRN PRN IV 02/03/25 16:15 02/05/25 02:51 0.5 MG Glycopyrrolate 0.4 mg Q4HP PRN IV 02/03/25 16:15 Lorazepam 0.5 mg Q4HP PRN IV 02/03/25 16:15 Phenol/Menthol 1 spr Q4HP PRN MT 02/05/25 13:45 02/05/25 17:27 1 SPR objective GENERAL: Alert and oriented x 2. No acute distress. EYES: PERRL, EOMI. Anicteric. HENT: Moist mucous membranes. LUNGS: Clear to auscultation bilaterally. CARDIOVASCULAR: Regular rate and rhythm. Systolic murmur. ABDOMEN: Ascites, large distended abdomen. EXTREMITIES: No edema. NEUROLOGIC: No focal neurological deficits. SKIN: Mottling to bilateral lower extremities. Bilateral feet cool to touch. laboratory and microbiology Laboratory Tests 02/05/25 05:00 Test 02/05/25 05:00 Range/Units Serum Glucose 53 L 74-106 mg/dL Problem List Atrial tachycardia, now in junctional rhythm. NSTEMI, likely type II. Chronic HFpEF with right-sided heart failure, NYHA class III. History of atrial fibrillation (on amiodarone and Eliquis). Chronic pericardial effusion. History of hypertension. Hyperlipidemia. Decompensated liver cirrhosis with refractory ascites. Ascites. Type 2 diabetes mellitus. End-stage renal disease on hemodialysis. Acute hepatic/metabolic/toxic encephalopathy. Acute hypoxic respiratory failure. Septic shock due to Enterococcus faecium. Blindness. Hearing loss. Assessment/Plan Continued all current supportive medical care. Amiodarone. Morphine for pain management. GI prophylactics. Vasopressors for hemodynamic support. Additional plan as per the hospital course. Critical care time of 45 minutes provided to include time spent evaluation of patient at bedside, when appropriate patient/family education for diagnosis, treatment plan, review of pertinent medical information and discussion of care with specialty providers and PCP. Dietary Evaluation Review Comments: 1) Nepro carb steady 240ml BID (ordered per ONS protocol) 2) Neprhro-Kaela 1 tab daily 3) Continue current plan of care Expected Outcomes/Goals: To meet >75% estimated needs Fu 3-5 days Plan discussed with: Patient SOREN MARTINEZ MD February 05, 2025 21:45
--- NOTE | 2025-02-05 23:28 | DVHPN2 ---
Progress Note - Dictate Date Seen: February 05, 2025 Medical Necessity Reason Pt with a Central, PICC or Fol: Yes The following are medically ne: Central Line Subjective Patient seen and examined at bedside. Remains on supplemental oxygen Overnight events reviewed. vital signs Vital Sign Date Time Temp Pulse Resp B/P (MAP) Pulse Ox O2 Delivery O2 Flow Rate FiO2 02/05/25 20:45 75 10 110/ (36) 99 110/47 (68) 02/05/25 20:00 Nasal Cannula* 2 28 02/05/25 20:00 98.3 98.3 Total Intake and Output 02/04/25 02/04/25 02/05/25 15:00 23:00 07:00 Intake Total 51.712 ml 500.484 ml 396.6 ml Output Total 0 ml 0 ml Balance 51.712 ml 500.484 ml 396.6 ml medications Current Medications Medications Dose Ordered Sig/Honey Route Start Time Stop Time Status Last Admin Dose Admin Diagnostic Test (Pha) 1 strip Q6HR 01/09/25 06:00 02/05/25 17:30 1 STRIP Insulin Human Regular Q6HR SC 01/09/25 06:00 02/05/25 17:28 6 UNITS Dextrose 50 ml UD PRN IV 01/09/25 00:30 01/18/25 10:40 50 ML Pantoprazole Sodium 40 mg DAILY IV 01/10/25 10:00 02/05/25 09:18 40 MG Ondansetron HCl 4 mg Q8HPRN PRN IV 01/09/25 10:30 01/30/25 20:04 4 MG Acetaminophen 650 mg Q6HP PRN PO 01/09/25 10:30 01/30/25 03:57 650 MG Ferrous Sulfate 325 mg BIDWM PO 01/10/25 18:00 02/04/25 18:03 325 MG Sevelamer HCl 800 mg TIDWM PO 01/10/25 18:00 02/04/25 18:03 800 MG Gabapentin 100 mg TID PO 01/11/25 14:00 02/05/25 22:47 100 MG Emollient Ointment 1 applic PRN PRN TOP 01/14/25 10:30 02/02/25 04:36 1 APPLIC Albumin Human 100 ml @ 100 mls/hr PRN PRN IV 01/15/25 10:30 02/02/25 15:55 100 MLS/HR Multivit/Ca Carb/ B Cmplx/FA/Prenat 1 tab DAILY PO 01/16/25 10:00 02/05/25 09:12 1 TAB Phenylephrine HCl 80 mg/Sodium Chloride 250 ml @ 7.5 mls/hr Q24H IV 01/19/25 12:00 Polyethylene Glycol 17 gm DAILYPRN PRN PO 01/21/25 12:15 01/25/25 09:59 17 GM Sennosides 8.6 mg QHSP PRN PO 01/21/25 12:15 01/24/25 23:56 8.6 MG Norepinephrine Bitartrate 32 mg/ Sodium Chloride 250 ml @ 0.938 mls/ hr Q24H IV 01/21/25 12:15 02/05/25 13:50 5.625 MLS/HR Midodrine 10 mg TID@0600,1200,1800 PO 01/24/25 06:00 02/05/25 17:34 10 MG Morphine Sulfate 2 mg Q2HPRN PRN IV 01/28/25 15:30 02/04/25 16:24 2 MG Nystatin 5 ml QID MT 01/29/25 12:00 02/05/25 22:47 5 ML Amiodarone HCl 200 mg Q12HR PO 02/01/25 10:00 02/05/25 22:47 200 MG Lactulose 30 ml DAILY PO 02/03/25 10:00 02/03/25 08:51 30 ML Hydromorphone HCl 0.5 mg Q2HPRN PRN IV 02/03/25 16:15 02/05/25 02:51 0.5 MG Glycopyrrolate 0.4 mg Q4HP PRN IV 02/03/25 16:15 Lorazepam 0.5 mg Q4HP PRN IV 02/03/25 16:15 Phenol/Menthol 1 spr Q4HP PRN MT 02/05/25 13:45 02/05/25 17:27 1 SPR objective Gen.: Patient lying in bed in no apparent distress. On supplemental oxygen. Head: Normocephalic, atraumatic. Eyes: EOMI/PERRLA. Ears: Normal hearing. Normal anatomy. Neck/trachea: Trachea midline, supple. Nose: Normal external anatomy. Mouth: Moist mucous membranes. Chest: Decreased air entry bilaterally. No wheezing or rhonchi. Cardiovascular: Positive S1, positive S2. Regular rate and rhythm. Abdomen: Positive bowel sounds in all 4 quadrants. Soft, non-tender, non- distended. : Deferred. Rectal: Deferred. Skin: Warm, dry. Intact. Extremities: 2+ radial pulses bilaterally. No lower extremity edema. Neuro: Awake, alert, oriented x3. No gross motor or sensory deficits. Cranial nerves II through XII intact. Gait not assessed. laboratory and microbiology Laboratory Tests 02/05/25 05:00 Test 02/05/25 05:00 Range/Units Serum Glucose 53 L 74-106 mg/dL Assessment/Plan Impression: Acute hypoxic respiratory failure Dependence on supplemental oxygen End-stage renal disease, on hemodialysis Heart failure with recent pericardial window due to recurrent pericardial effusions Refractory ascites due to cirrhosis with frequent paracentesis Diabetes mellitus Non-ST elevation [place] Events: Patient seen and examined at bedside. On 2 liters per minute nasal cannula Taper O2 as tolerated Remains on pressors for hemodynamic support On Levophed at 12 mcg/min Titrate to keep mean arterial pressure greater than 65 mmHg. Improving pressor requirements On midodrine TID for blood pressure support. 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 Recommend LTAC. Poor prognosis S/p paracentesis on 01/13/25- 3.3 liters of ascitic fluid removed Received albumin post paracentesis - See separate procedure note for details. S/p paracentesis on 01/10/25 Labs and imaging reviewed. Rest of plan as noted below. Plan: Supplemental oxygen Titrate to keep O2 sats above 92%. Head of bed elevation Aspiration precautions Off steroids Pressors as necessary for hemodynamic support Titrate to keep mean arterial pressure greater than 65 mmHg. Accu-Cheks, ISS Hemodialysis per Nephrology Nephrology recommendations appreciated. Monitor renal function. Monitor electrolytes. Supplement as necessary. Monitor ins and outs. GI prophylaxis - Protonix DVT prophylaxis. Prognosis: Poor given patient's multiple co-morbidities. Condition: Critical Rest of plan per hospitalist and other consultants. A total of 35 minutes of critical care time was spent reviewing the patient record, examining the patient, making a diagnostic and therapeutic plan, discussing this plan with the medical personnel, following up on diagnostic studies and following the patient for clinical stability excluding any and all procedures. At least 50% of this time was spent in direct, [id number] contact. Thank you, ELLIE Moreland, for allowing me to participate in this patient's care. Further recommendations will depend on the patient's clinical course. Please do not hesitate to contact me if you have any questions or concerns. This medical document was created using an electronic medical record system with [employer] dictation system. Although these documentations are being carefully reviewed, there may still be some phonetic and typographical changes. The errors are purely typographical, due to imperfection on the software program, and do not reflect any compromise in the patient's medical care. Dietary Evaluation Review Comments: 1) Nepro carb steady 240ml BID (ordered per ONS protocol) 2) Neprhro-Kaela 1 tab daily 3) Continue current plan of care Expected Outcomes/Goals: To meet >75% estimated needs Fu 3-5 days Plan discussed with: Other (LAVERNE Rivas) Critical Care Time(min): 35 MAYE HEATH MD February 05, 2025 23:28
[2025-02-06] VITALS (99 sets, daily range): BP systolic 86–128; BP diastolic 10–101; PULSE 70–196; RESP 6–26; TEMP 98.6–100.6; O2SAT 73–100
[2025-02-06 05:33] LABS: Eosinophils # (auto) 0.1 10 ^3/uL (0-0.8); Hemoglobin 7.8 g/dL (12.2-16.2); Monocytes # (auto) 1.3 10 ^3/uL (0-1.3); Nucleated Red Blood Cells % 0.1 %; White Blood Cell 16.7 10^3/uL (4.4-10.8)
[2025-02-06 05:37] LABS: Basophils # (auto) 0.1 10 ^3/uL (0-0.2); Basophils % (auto) 0.5 % (0.0-2.0); Eosinophils % (auto) 0.8 % (0.0-7.0); Hematocrit 24.2 % (36.0-46.0); Lymphocytes # (auto) 0.7 10 ^3/uL (0.4-5.4); Mean Corpuscular Hemoglobin 32.1 pg (28.0-32.0); Mean Corpuscular Hgb Conc. 32.3 g/dL (32.0-36.0); Mean Corpuscular Volume 99.3 fL (80.0-100.0); Monocytes % (auto) 7.6 % (0.0-12.0); Neutrophils # (auto) 14.5 10 ^3/uL (1.6-8.6); Neutrophils % (auto) 87.1 % (37.0-80.0); Platelet Count (auto) 115 10^3/uL (140-450); Red Blood Cells 2.44 10^6/uL (4.0-5.20); Red Cell Distribution Width 18.1 % (11.8-14.3)
[2025-02-06 05:43] LABS: Alanine Aminotransferase 26 U/L (7-40); Albumin 3.6 g/dL (3.2-4.8); Anion Gap 13 (5-15); Aspartate Aminotransferase 14 U/L (13-40); BUN/Creatinine Ratio 13.6 (10.0-20.0); Calcium 8.8 mg/dL (8.7-10.4); Carbon Dioxide 22 mmol/L (20-31); Potassium 4.8 mmol/L (3.5-5.1)
[2025-02-06 06:00] LABS: Alkaline Phosphatase 212 U/L (46-116); Bilirubin, Total 1.9 mg/dL (0.2-1.0); Blood Urea Nitrogen 60 mg/dL (9-23); Chloride 94 mmol/L (98-107); Glucose 209 mg/dL (74-106); Sodium 129 mmol/L (136-145); Total Protein 5.6 g/dL (5.7-8.2)
--- NOTE | 2025-02-06 08:38 | DVH ---
EXAM: XY CHEST XRAY 1 VIEW Indication: pain; pna Technique: Single frontal view of the chest was obtained Comparison: XY CHEST PORTABLE on DOS: 01/21/25, XY CHEST PORTABLE on DOS: 01/20/25, XY CHEST PORTABLE o n DOS: 01/16/25, XY CHEST PORTABLE on DOS: 01/11/25, XY CHEST PORTABLE on DOS: 01/08/25 FINDINGS: Lines and Tubes: None Lungs: Diffuse interstitial opacities. Pleura: No effusion. No pneumothorax. Cardiomediastinal contours: Cardiomegaly. Bones: No acute osseous abnormality. IMPRESSION: Cardiomegaly with diffuse interstitial opacities suggestive of pulmonary edema or atypical infection
--- NOTE | 2025-02-06 09:32 | DVHPN2 ---
Subjective Patient encephalopathic Reviewed: Care Plan, H&P, Labs, Medications, Previous Orders, Radiology, Other (Consultations) Changes from previous H/P or p: No Changes General: Per HPI Objective Vitals Vital Signs Date Time Temp Pulse Resp B/P (MAP) Pulse Ox O2 Delivery O2 Flow Rate FiO2 02/06/25 06:00 94 02/06/25 06:00 16 97 Nasal Cannula* 2 28 02/06/25 05:45 123/54 (77) 118/49 (72) 02/06/25 00:00 98.6 98.6 Intake/Output Intake and Output 02/06/25 07:00 Intake Total 728.2 ml Output Total 0 ml Balance 728.2 ml Intake Oral 600 ml IV Total 128.2 ml Output Urine Total 0 ml General Appearance: Alert, moderate distress, Other (Encephalopathic) HEENT: Atraumatic, Other (Blind) Lungs: Other (Decreased air entry bilateral) Cardiovascular: Normal S1, Normal S2, Other (Tracking failure) Abdomen: Normal bowel sounds, Soft, No tenderness, Other (Resolved ascites after paracentesis of almost 4 liters) Musculoskeletal: Weak motor strength RUE, Weak motor strength LUE, Weak motor strength RLE, Weak motor strength LLE Extremities: Other (Left upper extremity AV fistula with good bruit and thrill; dusky extremities) Neuro: Normal speech, Cranial nerves 3-12 NL, Other (Reviewed) Skin: Dry, Intact Psych/Mental Status: Mental status NL, Mood NL Medications Current Medications Medications Dose Ordered Sig/Honey Route Start Time Stop Time Status Last Admin Dose Admin Diagnostic Test (Pha) 1 strip Q6HR 01/09/25 06:00 02/06/25 06:00 1 STRIP Insulin Human Regular Q6HR SC 01/09/25 06:00 02/05/25 23:39 3 UNITS Dextrose 50 ml UD PRN IV 01/09/25 00:30 01/18/25 10:40 50 ML Pantoprazole Sodium 40 mg DAILY IV 01/10/25 10:00 02/05/25 09:18 40 MG Ondansetron HCl 4 mg Q8HPRN PRN IV 01/09/25 10:30 01/30/25 20:04 4 MG Acetaminophen 650 mg Q6HP PRN PO 01/09/25 10:30 01/30/25 03:57 650 MG Ferrous Sulfate 325 mg BIDWM PO 01/10/25 18:00 02/04/25 18:03 325 MG Sevelamer HCl 800 mg TIDWM PO 01/10/25 18:00 02/04/25 18:03 800 MG Gabapentin 100 mg TID PO 01/11/25 14:00 02/06/25 06:35 100 MG Emollient Ointment 1 applic PRN PRN TOP 01/14/25 10:30 02/02/25 04:36 1 APPLIC Albumin Human 100 ml @ 100 mls/hr PRN PRN IV 01/15/25 10:30 02/02/25 15:55 100 MLS/HR Multivit/Ca Carb/ B Cmplx/FA/Prenat 1 tab DAILY PO 01/16/25 10:00 02/05/25 09:12 1 TAB Phenylephrine HCl 80 mg/Sodium Chloride 250 ml @ 7.5 mls/hr Q24H IV 01/19/25 12:00 Polyethylene Glycol 17 gm DAILYPRN PRN PO 01/21/25 12:15 01/25/25 09:59 17 GM Sennosides 8.6 mg QHSP PRN PO 01/21/25 12:15 01/24/25 23:56 8.6 MG Norepinephrine Bitartrate 32 mg/ Sodium Chloride 250 ml @ 0.938 mls/ hr Q24H IV 01/21/25 12:15 02/05/25 13:50 5.625 MLS/HR Midodrine 10 mg TID@0600,1200,1800 PO 01/24/25 06:00 02/06/25 06:34 10 MG Morphine Sulfate 2 mg Q2HPRN PRN IV 01/28/25 15:30 02/04/25 16:24 2 MG Nystatin 5 ml QID MT 01/29/25 12:00 02/05/25 22:47 5 ML Amiodarone HCl 200 mg Q12HR PO 02/01/25 10:00 02/05/25 22:47 200 MG Lactulose 30 ml DAILY PO 02/03/25 10:00 02/03/25 08:51 30 ML Hydromorphone HCl 0.5 mg Q2HPRN PRN IV 02/03/25 16:15 02/06/25 01:17 0.5 MG Glycopyrrolate 0.4 mg Q4HP PRN IV 02/03/25 16:15 Lorazepam 0.5 mg Q4HP PRN IV 02/03/25 16:15 Phenol/Menthol 1 spr Q4HP PRN MT 02/05/25 13:45 02/05/25 17:27 1 SPR Linezolid 300 ml @ 150 mls/hr Q12HR IV 02/06/25 10:00 Laboratory Results Laboratory Tests 02/06/25 05:09 Chemistry Test 02/06/25 05:09 Albumin 3.6 g/dL (3.2-4.8) Calcium Level 8.8 mg/dL (8.7-10.4) Total Protein 5.6 g/dL (5.7-8.2) L LFT Test 02/06/25 05:09 Alanine Aminotransferase (ALT) 26 U/L (7-40) Alkaline Phosphatase 212 U/L (46-116) H Aspartate Amino Transferase (AST) 14 U/L (13-40) Total Bilirubin 1.9 mg/dL (0.2-1.0) H Microbiology Microbiology Date/Time Source Procedure Growth Status 01/17/25 17:30 Blood Blood Culture - Final NO GROWTH AFTER 5 DAYS OF INCUBATION. Complete 01/10/25 12:45 Ascities Fluid Gram Stain - Final Complete 01/10/25 12:45 Ascities Fluid Body Fluid Culture - Final Complete 01/09/25 14:00 Sputum Gram Stain - Final Complete 01/09/25 14:00 Respiratory Culture - Final Presumptive Lisa albicans Complete 01/09/25 05:00 Nose MRSA Screen - Final Complete Labs and/or images reviewed: Labs reviewed by me, Image(s) reviewed by me Assessment/Plan Assessment/Plan Plan: -septic shock with VRE in the blood -cirrhosis with severe ascites -ESRD with hemodialysis -NSTEMI, probably type secondary to recent pericardiocentesis -legally blind -anemia of chronic disease - dyslipidemia -paroxysmal atrial fibrillation -possible infiltration of norepinephrine to right upper extremity with extravasation. Plan: Events: Patient received HD today. Noted generalized swelling. Somewhat altered mental status. White blood cell count increasing. Not tolerating p.o. -start TPN -repeat blood cultures -restart Zyvox -ABG -social service consultation -continue vasopressor therapy, currently on norepinephrine 11 micrograms/minute -continue nystatin if patient is willing to take medication -pain management: Continue current regimen -repeat labs in a.m. Critical care time spent with patient discussing and formulating plan of care: 90 minutes. This does not include time spent performing procedures. This medical document was created using an electronic medical record system with [employer] dictation system. Although this document has been carefully reviewed, there may still be some phonetic and typographical errors. These areas are purely typographical due to imperfections of the software programs, and do not reflect any compromise in the patient's medical care. Plan discussed with: Patient, Other My Orders Orders - PAVEL GUAAMN NP Procedure Category Date Status Time Sore Throat [place] PHA 02/05/25 In Process (Chloraseptic) 13:45 Blood Culture ANAMARIA 02/06/25 In Process 07:54 Chest Xray 1 View XY 02/06/25 Resulted 07:54 TPN ORDERS 02/06/25 Transmitted 08:42 Linezolid 600mg/300ml PHA 02/06/25 In Process (Zyvox) 10:00 Abg W/ Co-Ox RT 02/06/25 Logged 09:27 Date of Service: February 06, 2025 Billing Provider: PAVEL GUAMAN NP Common Visit Codes: [id number] CARE 30-74 MIN PAVEL GUAMAN NP February 06, 2025 09:32
[2025-02-06] MEDS ORDERED: TPN PER PHARMACY 0 ML IV SCH (11:00)
--- NOTE | 2025-02-06 11:54 | DVHPN2 ---
Progress Note Date Seen: February 06, 2025 Medical Necessity Reason Pt with a Central, PICC or Fol: Yes The following are medically ne: Central Line Subjective Patient reports: Other (Patient remains in ICU) Review of Systems: Deferred Objective vital signs Vital Sign Date Time Temp Pulse Resp B/P (MAP) Pulse Ox O2 Delivery O2 Flow Rate FiO2 02/06/25 08:10 90 15 91 Nasal Cannula* 2 28 02/06/25 05:45 123/54 (77) 118/49 (72) 02/06/25 00:00 98.6 98.6 Total Intake and Output 02/05/25 02/05/25 02/06/25 15:00 23:00 07:00 Intake Total 189.2 ml 394.8 ml 149.4 ml Output Total 0 ml Balance 189.2 ml 394.8 ml 149.4 ml medications Current Medications Medications Dose Ordered Sig/Honey Route Start Time Stop Time Status Last Admin Dose Admin Diagnostic Test (Pha) 1 strip Q6HR 01/09/25 06:00 02/06/25 06:00 1 STRIP Insulin Human Regular Q6HR SC 01/09/25 06:00 02/05/25 23:39 3 UNITS Dextrose 50 ml UD PRN IV 01/09/25 00:30 01/18/25 10:40 50 ML Pantoprazole Sodium 40 mg DAILY IV 01/10/25 10:00 02/05/25 09:18 40 MG Ondansetron HCl 4 mg Q8HPRN PRN IV 01/09/25 10:30 01/30/25 20:04 4 MG Acetaminophen 650 mg Q6HP PRN PO 01/09/25 10:30 01/30/25 03:57 650 MG Ferrous Sulfate 325 mg BIDWM PO 01/10/25 18:00 02/04/25 18:03 325 MG Sevelamer HCl 800 mg TIDWM PO 01/10/25 18:00 02/04/25 18:03 800 MG Gabapentin 100 mg TID PO 01/11/25 14:00 02/06/25 06:35 100 MG Emollient Ointment 1 applic PRN PRN TOP 01/14/25 10:30 02/02/25 04:36 1 APPLIC Albumin Human 100 ml @ 100 mls/hr PRN PRN IV 01/15/25 10:30 02/02/25 15:55 100 MLS/HR Multivit/Ca Carb/ B Cmplx/FA/Prenat 1 tab DAILY PO 01/16/25 10:00 02/05/25 09:12 1 TAB Phenylephrine HCl 80 mg/Sodium Chloride 250 ml @ 7.5 mls/hr Q24H IV 01/19/25 12:00 Polyethylene Glycol 17 gm DAILYPRN PRN PO 01/21/25 12:15 01/25/25 09:59 17 GM Sennosides 8.6 mg QHSP PRN PO 01/21/25 12:15 01/24/25 23:56 8.6 MG Norepinephrine Bitartrate 32 mg/ Sodium Chloride 250 ml @ 0.938 mls/ hr Q24H IV 01/21/25 12:15 02/05/25 13:50 5.625 MLS/HR Midodrine 10 mg TID@0600,1200,1800 PO 01/24/25 06:00 02/06/25 06:34 10 MG Morphine Sulfate 2 mg Q2HPRN PRN IV 01/28/25 15:30 02/04/25 16:24 2 MG Nystatin 5 ml QID MT 01/29/25 12:00 02/05/25 22:47 5 ML Amiodarone HCl 200 mg Q12HR PO 02/01/25 10:00 02/05/25 22:47 200 MG Lactulose 30 ml DAILY PO 02/03/25 10:00 02/03/25 08:51 30 ML Hydromorphone HCl 0.5 mg Q2HPRN PRN IV 02/03/25 16:15 02/06/25 01:17 0.5 MG Glycopyrrolate 0.4 mg Q4HP PRN IV 02/03/25 16:15 Lorazepam 0.5 mg Q4HP PRN IV 02/03/25 16:15 Phenol/Menthol 1 spr Q4HP PRN MT 02/05/25 13:45 02/05/25 17:27 1 SPR Linezolid 300 ml @ 150 mls/hr Q12HR IV 02/06/25 10:00 Amino Acids 0 ml @ 0 mls/hr PER PHARMACY IV 02/06/25 11:00 Fat Emulsion Intravenous 50 ml/ Sodium Chloride 40 meq/Sodium Acetate 20 meq/ Magnesium Sulfate 4 meq/ Multivitamins 10 ml/Amino Acids/ Dextrose 1,081 ml @ 45 mls/hr Q24H2M IV 02/06/25 22:00 02/07/25 21:59 Examination: GENERAL:Abnormal, MSK:Abnormal, NEURO:Abnormal laboratory and microbiology Laboratory Tests 02/06/25 05:09 Test 02/06/25 05:09 Range/Units Serum Glucose 209 H 74-106 mg/dL Microbiology Date/Time Source Procedure Growth Status 01/17/25 17:30 Blood Blood Culture - Final NO GROWTH AFTER 5 DAYS OF INCUBATION. Complete 01/10/25 12:45 Ascities Fluid Gram Stain - Final Complete 01/10/25 12:45 Ascities Fluid Body Fluid Culture - Final Complete 01/09/25 14:00 Sputum Gram Stain - Final Complete 01/09/25 14:00 Respiratory Culture - Final Presumptive Lisa albicans Complete 01/09/25 05:00 Nose MRSA Screen - Final Complete Problem List/Assessment/Plan Problem List/Assessment/Plan End-stage renal disease on hemodialysis Heart failure with recent pericardial drainage due to recurrent pericardial effusions decompensated cirrhosis Diabetes Shock cardiogenic vs septic hyperkalemia VRE bacteremia recs HD today on levo poor prognosis Plan discussed with: Patient My Orders My Orders Orders - LARISA MCKEON MD Procedure Category Date Status Time Hemodialysis Orders ORDERS 02/06/25 Transmitted 04:00 Dietary Evaluation Review Comments: 1) Nepro carb steady 240ml BID (ordered per [facility]NS protocol) 2) Neprhro-Kaela 1 tab daily 3) Continue current plan of care Expected Outcomes/Goals: To meet >75% estimated needs Fu 3-5 days LARISA MCKEON MD February 06, 2025 11:54
[2025-02-06 12:09] LABS: Magnesium 2.4 mg/dL (1.6-2.6)
[2025-02-06 12:11] LABS: Phosphorus 3.5 mg/dL (2.4-5.1)
[2025-02-06] MEDS: LINEZOLID 600MG/300ML 300 ML IV SCH (13:43)
[2025-02-06 14:02] LABS: Base Excess -4.4 mmol/L (-2.0-3.0)
--- NOTE | 2025-02-06 16:36 | DVHPN2 ---
Progress Note - Dictate Date Seen: February 06, 2025 Medical Necessity Reason Pt with a Central, PICC or Fol: Yes The following are medically ne: Central Line Subjective Patient was seen and evaluated in follow up in the ICU. Patient continues to be encephalopathic. Patient remains on Levophed drip. CM is working on LTAC placement. WBC 16.7, HGB 7.8, HCT 24.2, NA 129, BUN 60, MANAGER ON[employer]OGY 4.41. Chest x-ray shows cardiomegaly with diffuse interstitial opacities suggestive of pulmonary edema or atypical infection. vital signs Vital Sign Date Time Temp Pulse Resp B/P (MAP) Pulse Ox O2 Delivery O2 Flow Rate FiO2 02/06/25 13:00 93 20 105/46 (65) 99 107/47 (67) 02/06/25 08:10 Nasal Cannula* 2 28 02/06/25 00:00 98.6 98.6 Total Intake and Output 02/05/25 02/05/25 02/06/25 15:00 23:00 07:00 Intake Total 189.2 ml 394.8 ml 149.4 ml Output Total 0 ml Balance 189.2 ml 394.8 ml 149.4 ml medications Current Medications Medications Dose Ordered Sig/Honey Route Start Time Stop Time Status Last Admin Dose Admin Diagnostic Test (Pha) 1 strip Q6HR 01/09/25 06:00 02/06/25 12:30 1 STRIP Insulin Human Regular Q6HR SC 01/09/25 06:00 02/06/25 12:30 3 UNITS Dextrose 50 ml UD PRN IV 01/09/25 00:30 01/18/25 10:40 50 ML Pantoprazole Sodium 40 mg DAILY IV 01/10/25 10:00 02/06/25 13:43 40 MG Ondansetron HCl 4 mg Q8HPRN PRN IV 01/09/25 10:30 01/30/25 20:04 4 MG Acetaminophen 650 mg Q6HP PRN PO 01/09/25 10:30 01/30/25 03:57 650 MG Ferrous Sulfate 325 mg BIDWM PO 01/10/25 18:00 02/04/25 18:03 325 MG Sevelamer HCl 800 mg TIDWM PO 01/10/25 18:00 02/04/25 18:03 800 MG Gabapentin 100 mg TID PO 01/11/25 14:00 02/06/25 13:46 100 MG Emollient Ointment 1 applic PRN PRN TOP 01/14/25 10:30 02/02/25 04:36 1 APPLIC Albumin Human 100 ml @ 100 mls/hr PRN PRN IV 01/15/25 10:30 02/02/25 15:55 100 MLS/HR Multivit/Ca Carb/ B Cmplx/FA/Prenat 1 tab DAILY PO 01/16/25 10:00 02/06/25 13:46 1 TAB Phenylephrine HCl 80 mg/Sodium Chloride 250 ml @ 7.5 mls/hr Q24H IV 01/19/25 12:00 Polyethylene Glycol 17 gm DAILYPRN PRN PO 01/21/25 12:15 01/25/25 09:59 17 GM Sennosides 8.6 mg QHSP PRN PO 01/21/25 12:15 01/24/25 23:56 8.6 MG Norepinephrine Bitartrate 32 mg/ Sodium Chloride 250 ml @ 0.938 mls/ hr Q24H IV 01/21/25 12:15 02/05/25 13:50 5.625 MLS/HR Midodrine 10 mg TID@0600,1200,1800 PO 01/24/25 06:00 02/06/25 13:45 10 MG Morphine Sulfate 2 mg Q2HPRN PRN IV 01/28/25 15:30 02/04/25 16:24 2 MG Nystatin 5 ml QID MT 01/29/25 12:00 02/05/25 22:47 5 ML Amiodarone HCl 200 mg Q12HR PO 02/01/25 10:00 02/06/25 13:43 200 MG Lactulose 30 ml DAILY PO 02/03/25 10:00 02/06/25 12:30 30 ML Hydromorphone HCl 0.5 mg Q2HPRN PRN IV 02/03/25 16:15 02/06/25 01:17 0.5 MG Glycopyrrolate 0.4 mg Q4HP PRN IV 02/03/25 16:15 Lorazepam 0.5 mg Q4HP PRN IV 02/03/25 16:15 Phenol/Menthol 1 spr Q4HP PRN MT 02/05/25 13:45 02/05/25 17:27 1 SPR Linezolid 300 ml @ 150 mls/hr Q12HR IV 02/06/25 10:00 02/06/25 13:43 150 MLS/HR Amino Acids 0 ml @ 0 mls/hr PER PHARMACY IV 02/06/25 11:00 Fat Emulsion Intravenous 50 ml/ Sodium Chloride 40 meq/Sodium Acetate 20 meq/ Magnesium Sulfate 4 meq/ Multivitamins 10 ml/Amino Acids/ Dextrose 881 ml @ 36 mls/hr [id number] IV 02/06/25 22:00 02/07/25 21:59 objective GENERAL: Alert and oriented x 2. No acute distress. EYES: PERRL, EOMI. Anicteric. HENT: Moist mucous membranes. LUNGS: Clear to auscultation bilaterally. CARDIOVASCULAR: Regular rate and rhythm. Systolic murmur. ABDOMEN: Ascites, large distended abdomen. EXTREMITIES: No edema. NEUROLOGIC: No focal neurological deficits. SKIN: Mottling to bilateral lower extremities. Bilateral feet cool to touch. laboratory and microbiology Laboratory Tests 02/06/25 05:09 Test 02/06/25 05:09 Range/Units Serum Glucose 209 H 74-106 mg/dL Problem List Atrial tachycardia, now in junctional rhythm. NSTEMI, likely type II. Chronic HFpEF with right-sided heart failure, NYHA class III. History of atrial fibrillation (on amiodarone and Eliquis). Chronic pericardial effusion. History of hypertension. Hyperlipidemia. Decompensated liver cirrhosis with refractory ascites. Ascites. Type 2 diabetes mellitus. End-stage renal disease on hemodialysis. Acute hepatic/metabolic/toxic encephalopathy. Acute hypoxic respiratory failure. Septic shock due to Enterococcus faecium. Blindness. Hearing loss. Assessment/Plan Continued all current supportive medical care. Amiodarone. Dilaudid for pain management. GI prophylactics. Vasopressors for hemodynamic support. Additional plan as per the hospital course. Critical care time of 45 minutes provided to include time spent evaluation of patient at bedside, when appropriate patient/family education for diagnosis, treatment plan, review of pertinent medical information and discussion of care with specialty providers and PCP. Dietary Evaluation Review Comments: 1) Nepro carb steady 240ml BID (ordered per [facility] protocol) 2) Neprhro-Kaela 1 tab daily 3) Continue current plan of care Expected Outcomes/Goals: To meet >75% estimated needs Fu 3-5 days Plan discussed with: SOREN Childs MD February 06, 2025 14:39
[2025-02-06] MEDS: TPN PER PHARMACY IV NR (21:33)
--- NOTE | 2025-02-06 22:13 | DVHPN2 ---
Progress Note - Dictate Date Seen: February 06, 2025 Medical Necessity Reason Pt with a Central, PICC or Fol: Yes The following are medically ne: Central Line Subjective Patient seen and examined at bedside. Remains on supplemental oxygen Overnight events reviewed. vital signs Vital Sign Date Time Temp Pulse Resp B/P (MAP) Pulse Ox O2 Delivery O2 Flow Rate FiO2 02/06/25 18:45 100.1 81 10 103/43 (63) 91 100.1 02/06/25 18:00 Nasal Cannula* 2 28 Total Intake and Output 02/05/25 02/05/25 02/06/25 15:00 23:00 07:00 Intake Total 189.2 ml 394.8 ml 149.4 ml Output Total 0 ml Balance 189.2 ml 394.8 ml 149.4 ml medications Current Medications Medications Dose Ordered Sig/Honey Route Start Time Stop Time Status Last Admin Dose Admin Diagnostic Test (Pha) 1 strip Q6HR 01/09/25 06:00 02/06/25 17:54 1 STRIP Insulin Human Regular Q6HR SC 01/09/25 06:00 02/06/25 17:55 4 UNITS Dextrose 50 ml UD PRN IV 01/09/25 00:30 01/18/25 10:40 50 ML Pantoprazole Sodium 40 mg DAILY IV 01/10/25 10:00 02/06/25 13:43 40 MG Ondansetron HCl 4 mg Q8HPRN PRN IV 01/09/25 10:30 01/30/25 20:04 4 MG Acetaminophen 650 mg Q6HP PRN PO 01/09/25 10:30 01/30/25 03:57 650 MG Ferrous Sulfate 325 mg BIDWM PO 01/10/25 18:00 02/04/25 18:03 325 MG Sevelamer HCl 800 mg TIDWM PO 01/10/25 18:00 02/04/25 18:03 800 MG Gabapentin 100 mg TID PO 01/11/25 14:00 02/06/25 13:46 100 MG Emollient Ointment 1 applic PRN PRN TOP 01/14/25 10:30 02/02/25 04:36 1 APPLIC Albumin Human 100 ml @ 100 mls/hr PRN PRN IV 01/15/25 10:30 02/06/25 10:08 100 MLS/HR Multivit/Ca Carb/ B Cmplx/FA/Prenat 1 tab DAILY PO 01/16/25 10:00 02/06/25 13:46 1 TAB Phenylephrine HCl 80 mg/Sodium Chloride 250 ml @ 7.5 mls/hr Q24H IV 01/19/25 12:00 Polyethylene Glycol 17 gm DAILYPRN PRN PO 01/21/25 12:15 01/25/25 09:59 17 GM Sennosides 8.6 mg QHSP PRN PO 01/21/25 12:15 01/24/25 23:56 8.6 MG Norepinephrine Bitartrate 32 mg/ Sodium Chloride 250 ml @ 0.938 mls/ hr Q24H IV 01/21/25 12:15 02/06/25 16:26 7.031 MLS/HR Midodrine 10 mg TID@0600,1200,1800 PO 01/24/25 06:00 02/06/25 13:45 10 MG Morphine Sulfate 2 mg Q2HPRN PRN IV 01/28/25 15:30 02/04/25 16:24 2 MG Nystatin 5 ml QID MT 01/29/25 12:00 02/05/25 22:47 5 ML Amiodarone HCl 200 mg Q12HR PO 02/01/25 10:00 02/06/25 13:43 200 MG Lactulose 30 ml DAILY PO 02/03/25 10:00 02/06/25 12:30 30 ML Hydromorphone HCl 0.5 mg Q2HPRN PRN IV 02/03/25 16:15 02/06/25 15:34 0.5 MG Glycopyrrolate 0.4 mg Q4HP PRN IV 02/03/25 16:15 Lorazepam 0.5 mg Q4HP PRN IV 02/03/25 16:15 Phenol/Menthol 1 spr Q4HP PRN MT 02/05/25 13:45 02/05/25 17:27 1 SPR Linezolid 300 ml @ 150 mls/hr Q12HR IV 02/06/25 10:00 02/06/25 21:29 150 MLS/HR Amino Acids 0 ml @ 0 mls/hr PER PHARMACY IV 02/06/25 11:00 Fat Emulsion Intravenous 50 ml/ Sodium Chloride 40 meq/Sodium Acetate 20 meq/ Magnesium Sulfate 4 meq/ Multivitamins 10 ml/Amino Acids/ Dextrose 881 ml @ 36 mls/hr [id number] IV 02/06/25 22:00 02/07/25 21:59 02/06/25 21:33 36 MLS/HR objective Gen.: Patient lying in bed in no apparent distress. On supplemental oxygen. Head: Normocephalic, atraumatic. Eyes: EOMI/PERRLA. Ears: Normal hearing. Normal anatomy. Neck/trachea: Trachea midline, supple. Nose: Normal external anatomy. Mouth: Moist mucous membranes. Chest: Decreased air entry bilaterally. No wheezing or rhonchi. Cardiovascular: Positive S1, positive S2. Regular rate and rhythm. Abdomen: Positive bowel sounds in all 4 quadrants. Soft, non-tender, non- distended. : Deferred. Rectal: Deferred. Skin: Warm, dry. Intact. Extremities: 2+ radial pulses bilaterally. No lower extremity edema. Neuro: Awake, alert, oriented x3. No gross motor or sensory deficits. Cranial nerves II through XII intact. Gait not assessed. laboratory and microbiology Laboratory Tests 02/06/25 05:09 Test 02/06/25 05:09 Range/Units Serum Glucose 209 H 74-106 mg/dL Assessment/Plan Impression: Acute hypoxic respiratory failure Dependence on supplemental oxygen End-stage renal disease, on hemodialysis Heart failure with recent pericardial window due to recurrent pericardial effusions Refractory ascites due to cirrhosis with frequent paracentesis Diabetes mellitus Non-ST elevation WI Events: Patient seen and examined at bedside. On 2 liters per minute nasal cannula Taper O2 as tolerated Remains on pressors for hemodynamic support On Levophed at 10 mcg/min Titrate to keep mean arterial pressure greater than 65 mmHg. Improving pressor requirements On midodrine TID for blood pressure support. Head of bed elevation Aspiration precautions Incentive spirometry Amiodarone PO Nystatin for thrush HD per Nephrology Nephrology recs appreciated Monitor renal function Monitor hemoglobin - trended down to 7.8 g/dL Transfuse to keep greater than or equal to 7 g/dL Iron supplementation Accu-Cheks, ISS Pain control Avoid oversedation Protonix for GI prophylaxis Recommend LTAC. Poor prognosis due to multiple comorbidities. S/p paracentesis on 01/13/25- 3.3 liters of ascitic fluid removed Received albumin post paracentesis - See separate procedure note for details. S/p paracentesis on 01/10/25 Labs and imaging reviewed. Rest of plan as noted below. Plan: Supplemental oxygen Titrate to keep O2 sats above 92%. Head of bed elevation Aspiration precautions Off steroids Pressors as necessary for hemodynamic support Titrate to keep mean arterial pressure greater than 65 mmHg. Accu-Cheks, ISS Hemodialysis per Nephrology Nephrology recommendations appreciated. Monitor renal function. Monitor electrolytes. Supplement as necessary. Monitor ins and outs. GI prophylaxis - Protonix DVT prophylaxis. Prognosis: Poor given patient's multiple co-morbidities. Condition: Critical Rest of plan per hospitalist and other consultants. A total of 35 minutes of critical care time was spent reviewing the patient record, examining the patient, making a diagnostic and therapeutic plan, discussing this plan with the medical personnel, following up on diagnostic studies and following the patient for clinical stability excluding any and all procedures. At least 50% of this time was spent in direct, [id number] contact. Thank you, ELLIE oMreland, for allowing me to participate in this patient's care. Further recommendations will depend on the patient's clinical course. Please do not hesitate to contact me if you have any questions or concerns. This medical document was created using an electronic medical record system with [employer] computerized dictation system. Although these documentations are being carefully reviewed, there may still be some phonetic and typographical changes. The errors are purely typographical, due to imperfection on the software program, and do not reflect any compromise in the patient's medical care. Dietary Evaluation Review Comments: 1) Nepro carb steady 240ml BID (ordered per [facility]NS protocol) 2) Neprhro-Kaela 1 tab daily 3) Continue current plan of care Expected Outcomes/Goals: To meet >75% estimated needs Fu 3-5 days Plan discussed with: Other (LAVERNE Tolentino) Critical Care Time(min): 35 MAYE HEATH MD February 06, 2025 22:13
[2025-02-07] VITALS (102 sets, daily range): BP systolic 93–129; BP diastolic 24–59; PULSE 78–158; RESP 7–23; TEMP 97.3–100.5; O2SAT 81–97
[2025-02-07 04:59] LABS: Hemoglobin 7.2 g/dL (12.2-16.2)
[2025-02-07 05:02] LABS: Hematocrit 22.6 % (36.0-46.0); Mean Corpuscular Hgb Conc. 31.9 g/dL (32.0-36.0); Mean Corpuscular Volume 100.4 fL (80.0-100.0); Platelet Count (auto) 118 10^3/uL (140-450); Red Blood Cells 2.25 10^6/uL (4.0-5.20)
[2025-02-07 05:04] LABS: Red Cell Distribution Width 20.4 % (11.8-14.3)
[2025-02-07 05:05] LABS: White Blood Cell 33.4 10^3/uL (4.4-10.8)
[2025-02-07 05:06] LABS: Basophils % (manual) 0 (0.0-2.0); Blast Cells 0; Eosinophils % (manual) 0 (0-7); Lymphocytes % (manual) 0 (10.0-50.0); Metamyelocytes % 0; Myelocytes % 0; Promyelocytes % 0; Reactive Lymphocytes 0
[2025-02-07 05:17] LABS: Alanine Aminotransferase 18 U/L (7-40); Anion Gap 16 (5-15); Aspartate Aminotransferase 16 U/L (13-40); BUN/Creatinine Ratio 13.5 (10.0-20.0); Carbon Dioxide 21 mmol/L (20-31); Magnesium 2.2 mg/dL (1.6-2.6); Potassium 4.8 mmol/L (3.5-5.1); Total Protein 5.7 g/dL (5.7-8.2)
[2025-02-07 05:18] LABS: Phosphorus 3.3 mg/dL (2.4-5.1)
[2025-02-07 05:20] LABS: Blood Urea Nitrogen 53 mg/dL (9-23); Chloride 92 mmol/L (98-107); Glucose 326 mg/dL (74-106); Sodium 129 mmol/L (136-145)
[2025-02-07 05:21] LABS: Alkaline Phosphatase 193 U/L (46-116); Bilirubin, Total 3.1 mg/dL (0.2-1.0); Calcium 8.6 mg/dL (8.7-10.4)
[2025-02-07 05:38] LABS: Band Neutrophils % (manual) 3; Monocytes % (manual) 1 (0-12)
[2025-02-07 05:39] LABS: Anisocytosis Slight; Large Platelets FEW; Macrocytosis Slight; Platelet Estimate Decreased; Stomatocytes Few
[2025-02-07 05:45] LABS: Triglycerides 83 mg/dL (< 150)
--- NOTE | 2025-02-07 09:34 | DVHPN2 ---
Subjective Patient encephalopathic Reviewed: Care Plan, H&P, Labs, Medications, Previous Orders, Radiology, Other (Consultations) Changes from previous H/P or p: No Changes General: Per HPI Objective Vitals Vital Signs Date Time Temp Pulse Resp B/P (MAP) Pulse Ox O2 Delivery O2 Flow Rate FiO2 02/07/25 08:30 95 18 113/45 (67) 94 02/07/25 08:00 99.3 99.3 02/07/25 06:00 Nasal Cannula* 2 28 Intake/Output Intake and Output 02/07/25 07:00 Intake Total 1948.215 ml Output Total 2500 ml Balance -551.785 ml Intake Oral 670 ml IV Total 1278.215 ml Output Urine Total 0 ml Stool Total 0 ml Other 2500 ml General Appearance: Alert, moderate distress, Other (Encephalopathic) HEENT: Atraumatic, Other (Blind) Lungs: Other (Decreased air entry bilateral) Cardiovascular: Normal S1, Normal S2, Other (Tracking failure) Abdomen: Normal bowel sounds, Soft, No tenderness, Other (Resolved ascites after paracentesis of almost 4 liters) Musculoskeletal: Weak motor strength RUE, Weak motor strength LUE, Weak motor strength RLE, Weak motor strength LLE Extremities: Other (Left upper extremity AV fistula with good bruit and thrill; dusky extremities) Neuro: Normal speech, Cranial nerves 3-12 NL, Other (Reviewed) Skin: Dry, Intact Psych/Mental Status: Mental status NL, Mood NL Medications Current Medications Medications Dose Ordered Sig/Honey Route Start Time Stop Time Status Last Admin Dose Admin Diagnostic Test (Pha) 1 strip Q6HR 01/09/25 06:00 02/07/25 05:59 1 STRIP Insulin Human Regular Q6HR SC 01/09/25 06:00 02/07/25 05:59 6 UNITS Dextrose 50 ml UD PRN IV 01/09/25 00:30 01/18/25 10:40 50 ML Pantoprazole Sodium 40 mg DAILY IV 01/10/25 10:00 02/06/25 13:43 40 MG Ondansetron HCl 4 mg Q8HPRN PRN IV 01/09/25 10:30 01/30/25 20:04 4 MG Acetaminophen 650 mg Q6HP PRN PO 01/09/25 10:30 01/30/25 03:57 650 MG Ferrous Sulfate 325 mg BIDWM PO 01/10/25 18:00 02/07/25 08:51 325 MG Sevelamer HCl 800 mg TIDWM PO 01/10/25 18:00 02/04/25 18:03 800 MG Gabapentin 100 mg TID PO 01/11/25 14:00 02/07/25 05:58 100 MG Emollient Ointment 1 applic PRN PRN TOP 01/14/25 10:30 02/02/25 04:36 1 APPLIC Albumin Human 100 ml @ 100 mls/hr PRN PRN IV 01/15/25 10:30 02/06/25 10:08 100 MLS/HR Multivit/Ca Carb/ B Cmplx/FA/Prenat 1 tab DAILY PO 01/16/25 10:00 02/06/25 13:46 1 TAB Phenylephrine HCl 80 mg/Sodium Chloride 250 ml @ 7.5 mls/hr Q24H IV 01/19/25 12:00 Polyethylene Glycol 17 gm DAILYPRN PRN PO 01/21/25 12:15 01/25/25 09:59 17 GM Sennosides 8.6 mg QHSP PRN PO 01/21/25 12:15 01/24/25 23:56 8.6 MG Norepinephrine Bitartrate 32 mg/ Sodium Chloride 250 ml @ 0.938 mls/ hr Q24H IV 01/21/25 12:15 02/06/25 16:26 7.031 MLS/HR Midodrine 10 mg TID@0600,1200,1800 PO 01/24/25 06:00 02/07/25 05:58 10 MG Morphine Sulfate 2 mg Q2HPRN PRN IV 01/28/25 15:30 02/07/25 00:07 2 MG Nystatin 5 ml QID MT 01/29/25 12:00 02/07/25 05:58 5 ML Amiodarone HCl 200 mg Q12HR PO 02/01/25 10:00 02/06/25 13:43 200 MG Lactulose 30 ml DAILY PO 02/03/25 10:00 02/06/25 12:30 30 ML Hydromorphone HCl 0.5 mg Q2HPRN PRN IV 02/03/25 16:15 02/07/25 03:17 0.5 MG Glycopyrrolate 0.4 mg Q4HP PRN IV 02/03/25 16:15 Lorazepam 0.5 mg Q4HP PRN IV 02/03/25 16:15 Phenol/Menthol 1 spr Q4HP PRN MT 02/05/25 13:45 02/05/25 17:27 1 SPR Linezolid 300 ml @ 150 mls/hr Q12HR IV 02/06/25 10:00 02/06/25 21:29 150 MLS/HR Amino Acids 0 ml @ 0 mls/hr PER PHARMACY IV 02/06/25 11:00 Fat Emulsion Intravenous 50 ml/ Sodium Chloride 40 meq/Sodium Acetate 20 meq/ Magnesium Sulfate 4 meq/ Multivitamins 10 ml/Amino Acids/ Dextrose 881 ml @ 36 mls/hr [id number] IV 02/06/25 22:00 02/07/25 21:59 02/06/25 21:33 36 MLS/HR Meropenem 50 ml @ 17 mls/hr Q12H IV 02/07/25 10:00 Laboratory Results Laboratory Tests 02/07/25 04:45 Chemistry Test 02/07/25 04:45 Albumin 4.0 g/dL (3.2-4.8) Calcium Level 8.6 mg/dL (8.7-10.4) L Magnesium Level 2.2 mg/dL (1.6-2.6) Phosphorus Level 3.3 mg/dL (2.4-5.1) Total Protein 5.7 g/dL (5.7-8.2) Lipid panel Test 02/07/25 04:45 Triglycerides Level 83 mg/dL (< 150) LFT Test 02/07/25 04:45 Alanine Aminotransferase (ALT) 18 U/L (7-40) Alkaline Phosphatase 193 U/L (46-116) H Aspartate Amino Transferase (AST) 16 U/L (13-40) Total Bilirubin 3.1 mg/dL (0.2-1.0) H Blood Gas Results Test 02/06/25 13:51 Arterial Blood pH 7.432 (7.350-7.450) FiO2 % 28.0 Microbiology Microbiology Date/Time Source Procedure Growth Status 02/06/25 08:57 Blood Blood Culture - Preliminary Resulted 01/10/25 12:45 Ascities Fluid Gram Stain - Final Complete 01/10/25 12:45 Ascities Fluid Body Fluid Culture - Final Complete 01/09/25 14:00 Sputum Gram Stain - Final Complete 01/09/25 14:00 Respiratory Culture - Final Presumptive Lisa albicans Complete 01/09/25 05:00 Nose MRSA Screen - Final Complete Labs and/or images reviewed: Labs reviewed by me, Image(s) reviewed by me Assessment/Plan Assessment/Plan Plan: -septic shock with VRE in the blood -cirrhosis with severe ascites -ESRD with hemodialysis -NSTEMI, probably type secondary to recent pericardiocentesis -legally blind -anemia of chronic disease - dyslipidemia -paroxysmal atrial fibrillation -possible infiltration of norepinephrine to right upper extremity with extravasation. Plan: Events: White blood cell count increasing. Patient with Gram-negative rods in blood culture. Plans to remove central line replaced with thigh PICC line. Attempted to obtain consent from patient's son, Reji as well as brother, Félix. No answers by both parties. We will defer to primary nurse and PICC line nurse to obtain consent at this time. -start TPN -repeat blood cultures : Preliminary with Gram-negative rods -continue Zyvox, add Merrem panel -ABG -social service consultation -continue vasopressor therapy, currently on norepinephrine 11 micrograms/minute -continue nystatin if patient is willing to take medication -pain management: Continue current regimen -repeat labs in a.m. Critical care time spent with patient discussing and formulating plan of care: 90 minutes. This does not include time spent performing procedures. This medical document was created using an electronic medical record system with [employer] dictation system. Although this document has been carefully reviewed, there may still be some phonetic and typographical errors. These areas are purely typographical due to imperfections of the software programs, and do not reflect any compromise in the patient's medical care. Plan discussed with: Patient, Other (RN) My Orders Orders - PAVEL GUAMAN NP Procedure Category Date Status Time Tpn Per Pharmacy PHA 02/06/25 In Process 11:00 Amino Acid PHA 02/06/25 In Process Infusion... W/Fat 22:00 Tpn Per Pharmacy REGINALD 02/06/25 In Process 22:00 Abg W/ Co-Ox RT 02/06/25 Logged 13:30 Meropenem 500mg Ivpb PHA 02/07/25 In Process (Merrem 500mg/Ns) 10:00 * Picc Line Consult CONS 02/07/25 Transmitted 09:06 Date of Service: February 07, 2025 Billing Provider: PAVEL GUAMAN NP Common Visit Codes: [id number] CARE 30-74 MIN PAVEL GUAMAN NP February 07, 2025 09:34
[2025-02-07 11:13] LABS: Base Excess -8.4 mmol/L (-2.0-3.0)
[2025-02-07] MEDS: SODIUM CHL 0.9% 1000 ML BAG XX ONE (11:40)
--- NOTE | 2025-02-07 14:11 | DVHPN2 ---
Progress Note - Dictate Date Seen: February 07, 2025 Medical Necessity Reason Pt with a Central, PICC or Fol: Yes The following are medically ne: Central Line Subjective Patient was seen and evaluated in follow up in the ICU. Patient is lethargic. He is continued on low dose vasopressors. Patient is receiving TPN for nutritional support. WBC 33.4, HGB 7.2, HCT 22.6, NA 129, BUN 53, TUB TENDER 3.94, GLUC 266, CA 8.6. Awaiting LTAC transfer. vital signs Vital Sign Date Time Temp Pulse Resp B/P (MAP) Pulse Ox O2 Delivery O2 Flow Rate FiO2 02/07/25 08:30 95 18 113/45 (67) 94 02/07/25 08:20 Nasal Cannula* 2 28 02/07/25 08:00 99.3 99.3 Total Intake and Output 02/06/25 02/06/25 02/07/25 14:59 22:59 06:59 Intake Total 398.948 ml 462.091 ml 1092.376 ml Output Total 2500 ml 0 ml Balance -2101.052 ml 462.091 ml 1092.376 ml medications Current Medications Medications Dose Ordered Sig/Honey Route Start Time Stop Time Status Last Admin Dose Admin Diagnostic Test (Pha) 1 strip Q6HR 01/09/25 06:00 02/07/25 05:59 1 STRIP Insulin Human Regular Q6HR SC 01/09/25 06:00 02/07/25 05:59 6 UNITS Dextrose 50 ml UD PRN IV 01/09/25 00:30 01/18/25 10:40 50 ML Pantoprazole Sodium 40 mg DAILY IV 01/10/25 10:00 02/07/25 10:27 40 MG Ondansetron HCl 4 mg Q8HPRN PRN IV 01/09/25 10:30 01/30/25 20:04 4 MG Acetaminophen 650 mg Q6HP PRN PO 01/09/25 10:30 01/30/25 03:57 650 MG Ferrous Sulfate 325 mg BIDWM PO 01/10/25 18:00 02/07/25 08:51 325 MG Sevelamer HCl 800 mg TIDWM PO 01/10/25 18:00 02/04/25 18:03 800 MG Gabapentin 100 mg TID PO 01/11/25 14:00 02/07/25 05:58 100 MG Emollient Ointment 1 applic PRN PRN TOP 01/14/25 10:30 02/02/25 04:36 1 APPLIC Albumin Human 100 ml @ 100 mls/hr PRN PRN IV 01/15/25 10:30 02/06/25 10:08 100 MLS/HR Multivit/Ca Carb/ B Cmplx/FA/Prenat 1 tab DAILY PO 01/16/25 10:00 02/07/25 10:27 1 TAB Phenylephrine HCl 80 mg/Sodium Chloride 250 ml @ 7.5 mls/hr Q24H IV 01/19/25 12:00 Polyethylene Glycol 17 gm DAILYPRN PRN PO 01/21/25 12:15 01/25/25 09:59 17 GM Sennosides 8.6 mg QHSP PRN PO 01/21/25 12:15 01/24/25 23:56 8.6 MG Norepinephrine Bitartrate 32 mg/ Sodium Chloride 250 ml @ 0.938 mls/ hr Q24H IV 01/21/25 12:15 02/06/25 16:26 7.031 MLS/HR Midodrine 10 mg TID@0600,1200,1800 PO 01/24/25 06:00 02/07/25 05:58 10 MG Morphine Sulfate 2 mg Q2HPRN PRN IV 01/28/25 15:30 02/07/25 00:07 2 MG Nystatin 5 ml QID MT 01/29/25 12:00 02/07/25 05:58 5 ML Amiodarone HCl 200 mg Q12HR PO 02/01/25 10:00 02/07/25 10:27 200 MG Lactulose 30 ml DAILY PO 02/03/25 10:00 02/07/25 10:29 30 ML Hydromorphone HCl 0.5 mg Q2HPRN PRN IV 02/03/25 16:15 02/07/25 03:17 0.5 MG Glycopyrrolate 0.4 mg Q4HP PRN IV 02/03/25 16:15 Lorazepam 0.5 mg Q4HP PRN IV 02/03/25 16:15 Phenol/Menthol 1 spr Q4HP PRN MT 02/05/25 13:45 02/05/25 17:27 1 SPR Linezolid 300 ml @ 150 mls/hr Q12HR IV 02/06/25 10:00 02/07/25 10:29 150 MLS/HR Amino Acids 0 ml @ 0 mls/hr PER PHARMACY IV 02/06/25 11:00 Fat Emulsion Intravenous 50 ml/ Sodium Chloride 40 meq/Sodium Acetate 20 meq/ Magnesium Sulfate 4 meq/ Multivitamins 10 ml/Amino Acids/ Dextrose 881 ml @ 36 mls/hr [id number] IV 02/06/25 22:00 02/07/25 21:59 02/06/25 21:33 36 MLS/HR Meropenem 50 ml @ 17 mls/hr Q12H IV 02/07/25 10:00 Fat Emulsion Intravenous 100 ml/Sodium Chloride 60 meq/ Sodium Acetate 40 meq/Multivitamins 10 ml/Insulin Human Regular 2 units/Amino Acids/ Dextrose 995.02 ml @ 41 mls/hr [id number] IV 02/07/25 22:00 02/08/25 21:59 objective GENERAL: Alert and oriented x 2. No acute distress. EYES: PERRL, EOMI. Anicteric. HENT: Moist mucous membranes. LUNGS: Clear to auscultation bilaterally. CARDIOVASCULAR: Regular rate and rhythm. Systolic murmur. ABDOMEN: Ascites, large distended abdomen. EXTREMITIES: No edema. NEUROLOGIC: No focal neurological deficits. SKIN: Mottling to bilateral lower extremities. Bilateral feet cool to touch. laboratory and microbiology Laboratory Tests 02/07/25 04:45 Test 02/07/25 04:45 Range/Units Serum Glucose 326 H 74-106 mg/dL Problem List Atrial tachycardia, now in junctional rhythm. NSTEMI, likely type II. Chronic HFpEF with right-sided heart failure, NYHA class III. History of atrial fibrillation (on amiodarone and Eliquis). Chronic pericardial effusion. History of hypertension. Hyperlipidemia. Decompensated liver cirrhosis with refractory ascites. Ascites. Type 2 diabetes mellitus. End-stage renal disease on hemodialysis. Acute hepatic/metabolic/toxic encephalopathy. Acute hypoxic respiratory failure. Septic shock due to Enterococcus faecium. Blindness. Hearing loss. Assessment/Plan Continued all current supportive medical care. Amiodarone. Dilaudid and Morphine for pain management. GI prophylactics. IV antibiotics as ordered. Vasopressors for hemodynamic support. Additional plan as per the hospital course. Critical care time of 45 minutes provided to include time spent evaluation of patient at bedside, when appropriate patient/family education for diagnosis, treatment plan, review of pertinent medical information and discussion of care with specialty providers and PCP. Dietary Evaluation Review Comments: 1) Nepro carb steady 240ml BID (ordered per [facility] protocol) 2) Neprhro-Kaela 1 tab daily 3) Continue current plan of care Expected Outcomes/Goals: To meet >75% estimated needs Fu 3-5 days Plan discussed with: Other SOREN MARTINEZ MD February 07, 2025 11:57
[2025-02-07] MEDS: MEROPENEM 500MG IVPB 50 ML IV SCH (14:57)
--- NOTE | 2025-02-07 20:21 | DVHPN2 ---
Progress Note Date Seen: February 07, 2025 Medical Necessity Reason Pt with a Central, PICC or Fol: Yes The following are medically ne: Central Line Subjective Patient reports: No new complaints Review of Systems: Deferred Objective vital signs Vital Sign Date Time Temp Pulse Resp B/P (MAP) Pulse Ox O2 Delivery O2 Flow Rate FiO2 02/07/25 20:00 102 16 100/38 (58) 02/07/25 18:00 Nasal Cannula* 4 36 02/07/25 16:00 98.2 98.2 02/07/25 10:00 81 Total Intake and Output 02/06/25 02/06/25 02/07/25 15:00 23:00 07:00 Intake Total 550.748 ml 647.888 ml 792.376 ml Output Total 2500 ml 0 ml Balance -1949.252 ml 647.888 ml 792.376 ml medications Current Medications Medications Dose Ordered Sig/Honey Route Start Time Stop Time Status Last Admin Dose Admin Diagnostic Test (Pha) 1 strip Q6HR 01/09/25 06:00 02/07/25 18:15 1 STRIP Insulin Human Regular Q6HR SC 01/09/25 06:00 02/07/25 18:15 3 UNITS Dextrose 50 ml UD PRN IV 01/09/25 00:30 01/18/25 10:40 50 ML Pantoprazole Sodium 40 mg DAILY IV 01/10/25 10:00 02/07/25 10:27 40 MG Ondansetron HCl 4 mg Q8HPRN PRN IV 01/09/25 10:30 01/30/25 20:04 4 MG Acetaminophen 650 mg Q6HP PRN PO 01/09/25 10:30 01/30/25 03:57 650 MG Ferrous Sulfate 325 mg BIDWM PO 01/10/25 18:00 02/07/25 08:51 325 MG Sevelamer HCl 800 mg TIDWM PO 01/10/25 18:00 02/04/25 18:03 800 MG Gabapentin 100 mg TID PO 01/11/25 14:00 02/07/25 05:58 100 MG Emollient Ointment 1 applic PRN PRN TOP 01/14/25 10:30 02/02/25 04:36 1 APPLIC Albumin Human 100 ml @ 100 mls/hr PRN PRN IV 01/15/25 10:30 02/06/25 10:08 100 MLS/HR Multivit/Ca Carb/ B Cmplx/FA/Prenat 1 tab DAILY PO 01/16/25 10:00 02/07/25 10:27 1 TAB Phenylephrine HCl 80 mg/Sodium Chloride 250 ml @ 7.5 mls/hr Q24H IV 01/19/25 12:00 Polyethylene Glycol 17 gm DAILYPRN PRN PO 01/21/25 12:15 01/25/25 09:59 17 GM Sennosides 8.6 mg QHSP PRN PO 01/21/25 12:15 01/24/25 23:56 8.6 MG Norepinephrine Bitartrate 32 mg/ Sodium Chloride 250 ml @ 0.938 mls/ hr Q24H IV 01/21/25 12:15 02/07/25 17:43 8.438 MLS/HR Midodrine 10 mg TID@0600,1200,1800 PO 01/24/25 06:00 02/07/25 05:58 10 MG Morphine Sulfate 2 mg Q2HPRN PRN IV 01/28/25 15:30 02/07/25 17:10 2 MG Nystatin 5 ml QID MT 01/29/25 12:00 02/07/25 12:07 5 ML Amiodarone HCl 200 mg Q12HR PO 02/01/25 10:00 02/07/25 10:27 200 MG Lactulose 30 ml DAILY PO 02/03/25 10:00 02/07/25 10:29 30 ML Hydromorphone HCl 0.5 mg Q2HPRN PRN IV 02/03/25 16:15 02/07/25 03:17 0.5 MG Glycopyrrolate 0.4 mg Q4HP PRN IV 02/03/25 16:15 Lorazepam 0.5 mg Q4HP PRN IV 02/03/25 16:15 Phenol/Menthol 1 spr Q4HP PRN MT 02/05/25 13:45 02/05/25 17:27 1 SPR Linezolid 300 ml @ 150 mls/hr Q12HR IV 02/06/25 10:00 02/07/25 10:29 150 MLS/HR Amino Acids 0 ml @ 0 mls/hr PER PHARMACY IV 02/06/25 11:00 Fat Emulsion Intravenous 50 ml/ Sodium Chloride 40 meq/Sodium Acetate 20 meq/ Magnesium Sulfate 4 meq/ Multivitamins 10 ml/Amino Acids/ Dextrose 881 ml @ 36 mls/hr [id number] IV 02/06/25 22:00 02/07/25 21:59 02/06/25 21:33 36 MLS/HR Meropenem 50 ml @ 17 mls/hr Q12H IV 02/07/25 10:00 02/07/25 14:57 17 MLS/HR Fat Emulsion Intravenous 100 ml/Sodium Chloride 60 meq/ Sodium Acetate 40 meq/Multivitamins 10 ml/Insulin Human Regular 2 units/Amino Acids/ Dextrose 995.02 ml @ 41 mls/hr [id number] IV 02/07/25 22:00 02/08/25 21:59 Examination: GENERAL:Abnormal, MSK:Abnormal, NEURO:Normal laboratory and microbiology Laboratory Tests 02/07/25 04:45 Test 02/07/25 04:45 Range/Units Serum Glucose 326 H 74-106 mg/dL Microbiology Date/Time Source Procedure Growth Status 02/06/25 08:57 Blood Blood Culture - Preliminary Resulted 01/10/25 12:45 Ascities Fluid Gram Stain - Final Complete 01/10/25 12:45 Ascities Fluid Body Fluid Culture - Final Complete 01/09/25 14:00 Sputum Gram Stain - Final Complete 01/09/25 14:00 Respiratory Culture - Final Presumptive Lisa albicans Complete 01/09/25 05:00 Nose MRSA Screen - Final Complete Problem List/Assessment/Plan Problem List/Assessment/Plan End-stage renal disease on hemodialysis Heart failure with recent pericardial drainage due to recurrent pericardial effusions decompensated cirrhosis Diabetes Shock septic hyperkalemia VRE bacteremia recs HD today on levo poor prognosis blood cx + Plan discussed with: Daughter My Orders My Orders Orders - LARISA MCKEON MD Procedure Category Date Status Time Hemodialysis Orders ORDERS 02/07/25 Transmitted 15:47 Dialysis Nursing REGINALD 02/07/25 In Process Message 15:47 Document Fluid Input REGINALD 02/07/25 In Process And Outpu 15:47 Dietary Evaluation Review Comments: 1) Nepro carb steady 240ml BID (ordered per [facility] protocol) 2) Neprhro-Kaela 1 tab daily 3) Continue current plan of care Expected Outcomes/Goals: To meet >75% estimated needs Fu 3-5 days LARISA MCKEON MD February 07, 2025 20:21
[2025-02-07] MEDS: TPN PER PHARMACY IV NR (22:45)
--- NOTE | 2025-02-07 23:01 | DVHPN2 ---
Progress Note - Dictate Date Seen: February 07, 2025 Medical Necessity Reason Pt with a Central, PICC or Fol: Yes The following are medically ne: Central Line Subjective Patient seen and examined at bedside. Remains on supplemental oxygen Overnight events reviewed. vital signs Vital Sign Date Time Temp Pulse Resp B/P (MAP) Pulse Ox O2 Delivery O2 Flow Rate FiO2 02/07/25 20:00 102 16 100/38 (58) 02/07/25 18:00 Nasal Cannula* 4 36 02/07/25 16:00 98.2 98.2 02/07/25 10:00 81 Total Intake and Output 02/06/25 02/06/25 02/07/25 15:00 23:00 07:00 Intake Total 550.748 ml 647.888 ml 792.376 ml Output Total 2500 ml 0 ml Balance -1949.252 ml 647.888 ml 792.376 ml medications Current Medications Medications Dose Ordered Sig/Honey Route Start Time Stop Time Status Last Admin Dose Admin Diagnostic Test (Pha) 1 strip Q6HR 01/09/25 06:00 02/07/25 18:15 1 STRIP Insulin Human Regular Q6HR SC 01/09/25 06:00 02/07/25 18:15 3 UNITS Dextrose 50 ml UD PRN IV 01/09/25 00:30 01/18/25 10:40 50 ML Pantoprazole Sodium 40 mg DAILY IV 01/10/25 10:00 02/07/25 10:27 40 MG Ondansetron HCl 4 mg Q8HPRN PRN IV 01/09/25 10:30 01/30/25 20:04 4 MG Acetaminophen 650 mg Q6HP PRN PO 01/09/25 10:30 01/30/25 03:57 650 MG Ferrous Sulfate 325 mg BIDWM PO 01/10/25 18:00 02/07/25 08:51 325 MG Sevelamer HCl 800 mg TIDWM PO 01/10/25 18:00 02/04/25 18:03 800 MG Gabapentin 100 mg TID PO 01/11/25 14:00 02/07/25 05:58 100 MG Emollient Ointment 1 applic PRN PRN TOP 01/14/25 10:30 02/02/25 04:36 1 APPLIC Albumin Human 100 ml @ 100 mls/hr PRN PRN IV 01/15/25 10:30 02/06/25 10:08 100 MLS/HR Multivit/Ca Carb/ B Cmplx/FA/Prenat 1 tab DAILY PO 01/16/25 10:00 02/07/25 10:27 1 TAB Phenylephrine HCl 80 mg/Sodium Chloride 250 ml @ 7.5 mls/hr Q24H IV 01/19/25 12:00 Polyethylene Glycol 17 gm DAILYPRN PRN PO 01/21/25 12:15 01/25/25 09:59 17 GM Sennosides 8.6 mg QHSP PRN PO 01/21/25 12:15 01/24/25 23:56 8.6 MG Norepinephrine Bitartrate 32 mg/ Sodium Chloride 250 ml @ 0.938 mls/ hr Q24H IV 01/21/25 12:15 02/07/25 17:43 8.438 MLS/HR Midodrine 10 mg TID@0600,1200,1800 PO 01/24/25 06:00 02/07/25 05:58 10 MG Morphine Sulfate 2 mg Q2HPRN PRN IV 01/28/25 15:30 02/07/25 17:10 2 MG Nystatin 5 ml QID MT 01/29/25 12:00 02/07/25 12:07 5 ML Amiodarone HCl 200 mg Q12HR PO 02/01/25 10:00 02/07/25 10:27 200 MG Lactulose 30 ml DAILY PO 02/03/25 10:00 02/07/25 10:29 30 ML Hydromorphone HCl 0.5 mg Q2HPRN PRN IV 02/03/25 16:15 02/07/25 03:17 0.5 MG Glycopyrrolate 0.4 mg Q4HP PRN IV 02/03/25 16:15 Lorazepam 0.5 mg Q4HP PRN IV 02/03/25 16:15 Phenol/Menthol 1 spr Q4HP PRN MT 02/05/25 13:45 02/05/25 17:27 1 SPR Linezolid 300 ml @ 150 mls/hr Q12HR IV 02/06/25 10:00 02/07/25 22:46 150 MLS/HR Amino Acids 0 ml @ 0 mls/hr PER PHARMACY IV 02/06/25 11:00 Meropenem 50 ml @ 17 mls/hr Q12H IV 02/07/25 10:00 02/07/25 14:57 17 MLS/HR Fat Emulsion Intravenous 100 ml/Sodium Chloride 60 meq/ Sodium Acetate 40 meq/Multivitamins 10 ml/Insulin Human Regular 2 units/Amino Acids/ Dextrose 995.02 ml @ 41 mls/hr [id number] IV 02/07/25 22:00 02/08/25 21:59 02/07/25 22:45 41 MLS/HR objective Gen.: Patient lying in bed in no apparent distress. On supplemental oxygen. Head: Normocephalic, atraumatic. Eyes: EOMI/PERRLA. Ears: Normal hearing. Normal anatomy. Neck/trachea: Trachea midline, supple. Nose: Normal external anatomy. Mouth: Moist mucous membranes. Chest: Decreased air entry bilaterally. No wheezing or rhonchi. Cardiovascular: Positive S1, positive S2. Regular rate and rhythm. Abdomen: Positive bowel sounds in all 4 quadrants. Soft, non-tender, non- distended. : Deferred. Rectal: Deferred. Skin: Warm, dry. Intact. Extremities: 2+ radial pulses bilaterally. No lower extremity edema. Neuro: Awake, alert, oriented x3. No gross motor or sensory deficits. Cranial nerves II through XII intact. Gait not assessed. laboratory and microbiology Laboratory Tests 02/07/25 04:45 Test 02/07/25 04:45 Range/Units Serum Glucose 326 H 74-106 mg/dL Assessment/Plan Impression: Acute hypoxic respiratory failure Dependence on supplemental oxygen End-stage renal disease, on hemodialysis Heart failure with recent pericardial window due to recurrent pericardial effusions Refractory ascites due to cirrhosis with frequent paracentesis Diabetes mellitus Non-ST elevation [place] Events: Patient seen and examined at bedside. On 4 liters per minute nasal cannula with humidifier Taper O2 as tolerated Remains on pressors for hemodynamic support On Levophed at 18 mcg/min Titrate to keep mean arterial pressure greater than 65 mmHg. Increasing pressor requirements Midodrine for blood pressure support. Head of bed elevation Aspiration precautions Plan for central line removal and placement of PICC line. Continue antibiotics WBC elevated at 30 K. Incentive spirometry Amiodarone PO Nystatin for thrush Hemodialysis per Nephrology - HD today, removed 2.5 liters Nephrology recs appreciated Monitor renal function Monitor hemoglobin - currently 7.2 g/dL Transfuse to keep greater than or equal to 7 g/dL Iron supplementation Accu-Cheks, ISS Pain control Avoid oversedation TPN for nutritional support Protonix for GI prophylaxis Recommend LTAC. Poor prognosis due to multiple comorbidities. S/p paracentesis on 01/13/25- 3.3 liters of ascitic fluid removed Received albumin post paracentesis - See separate procedure note for details. S/p paracentesis on 01/10/25 Labs and imaging reviewed. Rest of plan as noted below. Plan: Supplemental oxygen Titrate to keep O2 sats above 92%. Head of bed elevation Aspiration precautions Off steroids Pressors as necessary for hemodynamic support Titrate to keep mean arterial pressure greater than 65 mmHg. Accu-Cheks, ISS Hemodialysis per Nephrology Nephrology recommendations appreciated. Monitor renal function. Monitor electrolytes. Supplement as necessary. Monitor ins and outs. GI prophylaxis - Protonix DVT prophylaxis. Prognosis: Poor given patient's multiple co-morbidities. Condition: Critical Rest of plan per hospitalist and other consultants. A total of 35 minutes of critical care time was spent reviewing the patient record, examining the patient, making a diagnostic and therapeutic plan, discussing this plan with the medical personnel, following up on diagnostic studies and following the patient for clinical stability excluding any and all procedures. At least 50% of this time was spent in direct, [id number] contact. Thank you, ELLIE Moreland, for allowing me to participate in this patient's care. Further recommendations will depend on the patient's clinical course. Please do not hesitate to contact me if you have any questions or concerns. This medical document was created using an electronic medical record system with [employer] dictation system. Although these documentations are being carefully reviewed, there may still be some phonetic and typographical changes. The errors are purely typographical, due to imperfection on the software program, and do not reflect any compromise in the patient's medical care. Dietary Evaluation Review Comments: 1) Nepro carb steady 240ml BID (ordered per [facility] protocol) 2) Neprhro-Kaela 1 tab daily 3) Continue current plan of care Expected Outcomes/Goals: To meet >75% estimated needs Fu 3-5 days Plan discussed with: Other (LAVERNE Velasquez) Critical Care Time(min): 35 MAYE HEATH MD February 07, 2025 23:01
[2025-02-08] VITALS (96 sets, daily range): BP systolic 71–140; BP diastolic 19–93; PULSE 87–112; RESP 7–24; TEMP 97.7–99.2; O2SAT 87–100
[2025-02-08 07:30] LABS: Alanine Aminotransferase 20 U/L (7-40); Albumin 3.6 g/dL (3.2-4.8); Anion Gap 13 (5-15); Aspartate Aminotransferase 30 U/L (13-40); BUN/Creatinine Ratio 16.7 (10.0-20.0); Calcium 9.3 mg/dL (8.7-10.4); Carbon Dioxide 25 mmol/L (20-31); Potassium 4.1 mmol/L (3.5-5.1)
[2025-02-08 07:35] LABS: Alkaline Phosphatase 227 U/L (46-116); Bilirubin, Total 3.6 mg/dL (0.2-1.0); Blood Urea Nitrogen 50 mg/dL (9-23); Chloride 95 mmol/L (98-107); Glucose 313 mg/dL (74-106); Phosphorus 2.1 mg/dL (2.4-5.1); Sodium 133 mmol/L (136-145); Total Protein 5.4 g/dL (5.7-8.2)
[2025-02-08 09:01] LABS: Hemoglobin 7.6 g/dL (12.2-16.2)
[2025-02-08 09:02] LABS: Hematocrit 24.1 % (36.0-46.0); Mean Corpuscular Hemoglobin 31.9 pg (28.0-32.0); Mean Corpuscular Hgb Conc. 31.7 g/dL (32.0-36.0); Mean Corpuscular Volume 100.8 fL (80.0-100.0); Platelet Count (auto) 108 10^3/uL (140-450); Red Blood Cells 2.39 10^6/uL (4.0-5.20)
[2025-02-08 09:05] LABS: Red Cell Distribution Width 20.6 % (11.8-14.3)
--- NOTE | 2025-02-08 09:08 | DVHPN2 ---
Subjective Patient encephalopathic Reviewed: Care Plan, H&P, Labs, Medications, Previous Orders, Radiology, Other (Consultations) Changes from previous H/P or p: No Changes General: Per HPI Objective Vitals Vital Signs Date Time Temp Pulse Resp B/P (MAP) Pulse Ox O2 Delivery O2 Flow Rate FiO2 02/08/25 06:45 92 13 110/43 (65) 96 02/08/25 06:00 Nasal Cannula* 4 36 02/08/25 04:00 99.2 99.2 Intake/Output Intake and Output 02/08/25 07:00 Intake Total 2188.161 ml Output Total 2500 ml Balance -311.839 ml Intake Oral 420 ml IV Total 1768.161 ml Other 2500 ml General Appearance: Alert, moderate distress, Other (Encephalopathic) HEENT: Atraumatic, Other (Blind) Lungs: Other (Decreased air entry bilateral) Cardiovascular: Normal S1, Normal S2, Other (Tracking failure) Abdomen: Normal bowel sounds, Soft, No tenderness, Other (Resolved ascites after paracentesis of almost 4 liters) Musculoskeletal: Weak motor strength RUE, Weak motor strength LUE, Weak motor strength RLE, Weak motor strength LLE Extremities: Other (Left upper extremity AV fistula with good bruit and thrill; dusky extremities) Neuro: Normal speech, Cranial nerves 3-12 NL, Other (Reviewed) Skin: Dry, Intact Psych/Mental Status: Mental status NL, Mood NL Medications Current Medications Medications Dose Ordered Sig/Honey Route Start Time Stop Time Status Last Admin Dose Admin Diagnostic Test (Pha) 1 strip Q6HR 01/09/25 06:00 02/08/25 06:16 1 STRIP Insulin Human Regular Q6HR SC 01/09/25 06:00 02/08/25 06:16 4 UNITS Dextrose 50 ml UD PRN IV 01/09/25 00:30 01/18/25 10:40 50 ML Pantoprazole Sodium 40 mg DAILY IV 01/10/25 10:00 02/07/25 10:27 40 MG Ondansetron HCl 4 mg Q8HPRN PRN IV 01/09/25 10:30 01/30/25 20:04 4 MG Acetaminophen 650 mg Q6HP PRN PO 01/09/25 10:30 02/07/25 23:43 650 MG Ferrous Sulfate 325 mg BIDWM PO 01/10/25 18:00 02/07/25 08:51 325 MG Sevelamer HCl 800 mg TIDWM PO 01/10/25 18:00 02/04/25 18:03 800 MG Gabapentin 100 mg TID PO 01/11/25 14:00 02/07/25 05:58 100 MG Emollient Ointment 1 applic PRN PRN TOP 01/14/25 10:30 02/02/25 04:36 1 APPLIC Albumin Human 100 ml @ 100 mls/hr PRN PRN IV 01/15/25 10:30 02/06/25 10:08 100 MLS/HR Multivit/Ca Carb/ B Cmplx/FA/Prenat 1 tab DAILY PO 01/16/25 10:00 02/07/25 10:27 1 TAB Phenylephrine HCl 80 mg/Sodium Chloride 250 ml @ 7.5 mls/hr Q24H IV 01/19/25 12:00 Polyethylene Glycol 17 gm DAILYPRN PRN PO 01/21/25 12:15 01/25/25 09:59 17 GM Sennosides 8.6 mg QHSP PRN PO 01/21/25 12:15 01/24/25 23:56 8.6 MG Norepinephrine Bitartrate 32 mg/ Sodium Chloride 250 ml @ 0.938 mls/ hr Q24H IV 01/21/25 12:15 02/07/25 17:43 8.438 MLS/HR Midodrine 10 mg TID@0600,1200,1800 PO 01/24/25 06:00 02/07/25 05:58 10 MG Morphine Sulfate 2 mg Q2HPRN PRN IV 01/28/25 15:30 02/08/25 04:40 2 MG Nystatin 5 ml QID MT 01/29/25 12:00 02/07/25 12:07 5 ML Amiodarone HCl 200 mg Q12HR PO 02/01/25 10:00 02/07/25 23:44 200 MG Lactulose 30 ml DAILY PO 02/03/25 10:00 02/07/25 10:29 30 ML Hydromorphone HCl 0.5 mg Q2HPRN PRN IV 02/03/25 16:15 02/07/25 03:17 0.5 MG Glycopyrrolate 0.4 mg Q4HP PRN IV 02/03/25 16:15 Lorazepam 0.5 mg Q4HP PRN IV 02/03/25 16:15 Phenol/Menthol 1 spr Q4HP PRN MT 02/05/25 13:45 02/05/25 17:27 1 SPR Linezolid 300 ml @ 150 mls/hr Q12HR IV 02/06/25 10:00 02/07/25 22:46 150 MLS/HR Amino Acids 0 ml @ 0 mls/hr PER PHARMACY IV 02/06/25 11:00 Meropenem 50 ml @ 17 mls/hr Q12H IV 02/07/25 10:00 02/07/25 22:00 17 MLS/HR Fat Emulsion Intravenous 100 ml/Sodium Chloride 60 meq/ Sodium Acetate 40 meq/Multivitamins 10 ml/Insulin Human Regular 2 units/Amino Acids/ Dextrose 995.02 ml @ 41 mls/hr [id number] IV 02/07/25 22:00 02/08/25 21:59 02/07/25 22:45 41 MLS/HR Laboratory Results Laboratory Tests 02/08/25 07:02 Chemistry Test 02/08/25 07:02 Albumin 3.6 g/dL (3.2-4.8) Calcium Level 9.3 mg/dL (8.7-10.4) Magnesium Level 2.0 mg/dL (1.6-2.6) Phosphorus Level 2.1 mg/dL (2.4-5.1) L Total Protein 5.4 g/dL (5.7-8.2) L LFT Test 02/08/25 07:02 Alanine Aminotransferase (ALT) 20 U/L (7-40) Alkaline Phosphatase 227 U/L (46-116) H Aspartate Amino Transferase (AST) 30 U/L (13-40) Total Bilirubin 3.6 mg/dL (0.2-1.0) H Blood Gas Results Test 02/07/25 11:02 Arterial Blood pH 7.338 (7.350-7.450) FiO2 % 28.0 Microbiology Microbiology Date/Time Source Procedure Growth Status 02/06/25 08:57 Blood Blood Culture - Preliminary Resulted 01/10/25 12:45 Ascities Fluid Gram Stain - Final Complete 01/10/25 12:45 Ascities Fluid Body Fluid Culture - Final Complete 01/09/25 14:00 Sputum Gram Stain - Final Complete 01/09/25 14:00 Respiratory Culture - Final Presumptive Lisa albicans Complete 01/09/25 05:00 Nose MRSA Screen - Final Complete Labs and/or images reviewed: Labs reviewed by me, Image(s) reviewed by me Assessment/Plan Assessment/Plan Plan: -septic shock with VRE in the blood -cirrhosis with severe ascites -ESRD with hemodialysis -NSTEMI, probably type secondary to recent pericardiocentesis -legally blind -anemia of chronic disease - dyslipidemia -paroxysmal atrial fibrillation -possible infiltration of norepinephrine to right upper extremity with extravasation. Plan: Events: No events overnight. Continues to be on vasopressor therapy. Attempts were made yesterday to speak with the patient's family regarding consent for thigh access PICC line. Unable to contact family willing to sign consent. We will remove central line once PICC line has been placed. -continue -repeat blood cultures : Preliminary with Gram-negative rods -continue current antibiotics with Zyvox and Merrem -ABG -social service consultation -continue vasopressor therapy, currently on norepinephrine 11 micrograms/minute -continue nystatin if patient is willing to take medication -pain management: Continue current regimen -repeat labs in a.m. Critical care time spent with patient discussing and formulating plan of care: 90 minutes. This does not include time spent performing procedures. This medical document was created using an electronic medical record system with [employer] dictation system. Although this document has been carefully reviewed, there may still be some phonetic and typographical errors. These areas are purely typographical due to imperfections of the software programs, and do not reflect any compromise in the patient's medical care. Plan discussed with: Patient, Other (RN) My Orders Orders - PAVEL GUAMAN NP Procedure Category Date Status Time * Picc Line Consult CONS 02/07/25 Transmitted 09:06 Abg W/ Co-Ox RT 02/07/25 Logged 10:48 Amino Acid PHA 02/07/25 In Process Infusion... W/Fat 22:00 Tpn Per Pharmacy REGINALD 02/07/25 In Process 22:00 Communication Order ORDERS 02/07/25 Transmitted 13:38 Complete Blood Count LAB 02/08/25 In Process 04:09 Date of Service: February 08, 2025 Billing Provider: PAVEL GUAMAN NP Common Visit Codes: [id number] CARE 30-74 MIN PAVEL GUAMAN NP February 08, 2025 09:08
[2025-02-08 09:09] LABS: White Blood Cell 33.1 10^3/uL (4.4-10.8)
[2025-02-08 09:10] LABS: Band Neutrophils % (manual) 0; Basophils % (manual) 0 (0.0-2.0); Blast Cells 0; Eosinophils % (manual) 0 (0-7); Metamyelocytes % 0; Myelocytes % 0; Promyelocytes % 0; Reactive Lymphocytes 0
[2025-02-08 11:10] LABS: Anisocytosis Slight; Lymphocytes % (manual) 2 (10.0-50.0); Macrocytosis Slight; Monocytes % (manual) 4 (0-12); Platelet Estimate Decreased
--- NOTE | 2025-02-08 12:22 | DVHPN2 ---
Progress Note - Dictate Date Seen: February 08, 2025 Medical Necessity Reason Pt with a Central, PICC or Fol: Yes The following are medically ne: Central Line Subjective Patient was seen and evaluated in follow up in the ICU. Patient remains lethargic and confused. She is on 4 LPM NC. WBC 33.1, HGB 7.6, HCT 24.1, BUN 50, [employer] 3, GLUC 319. vital signs Vital Sign Date Time Temp Pulse Resp B/P (MAP) Pulse Ox O2 Delivery O2 Flow Rate FiO2 02/08/25 08:00 94 14 Nasal Cannula* 4 36 02/08/25 06:45 110/43 (65) 96 02/08/25 04:00 99.2 99.2 Total Intake and Output 02/07/25 02/07/25 02/08/25 15:00 23:00 07:00 Intake Total 667.974 ml 476.092 ml 1044.095 ml Output Total 2500 ml Balance 667.974 ml -2023.908 ml 1044.095 ml medications Current Medications Medications Dose Ordered Sig/Honey Route Start Time Stop Time Status Last Admin Dose Admin Diagnostic Test (Pha) 1 strip Q6HR 01/09/25 06:00 02/08/25 06:16 1 STRIP Insulin Human Regular Q6HR SC 01/09/25 06:00 02/08/25 06:16 4 UNITS Dextrose 50 ml UD PRN IV 01/09/25 00:30 01/18/25 10:40 50 ML Pantoprazole Sodium 40 mg DAILY IV 01/10/25 10:00 02/08/25 10:24 40 MG Ondansetron HCl 4 mg Q8HPRN PRN IV 01/09/25 10:30 01/30/25 20:04 4 MG Acetaminophen 650 mg Q6HP PRN PO 01/09/25 10:30 02/07/25 23:43 650 MG Ferrous Sulfate 325 mg BIDWM PO 01/10/25 18:00 02/08/25 10:25 325 MG Sevelamer HCl 800 mg TIDWM PO 01/10/25 18:00 02/08/25 10:25 800 MG Gabapentin 100 mg TID PO 01/11/25 14:00 02/07/25 05:58 100 MG Emollient Ointment 1 applic PRN PRN TOP 01/14/25 10:30 02/02/25 04:36 1 APPLIC Albumin Human 100 ml @ 100 mls/hr PRN PRN IV 01/15/25 10:30 02/06/25 10:08 100 MLS/HR Multivit/Ca Carb/ B Cmplx/FA/Prenat 1 tab DAILY PO 01/16/25 10:00 02/08/25 10:25 1 TAB Phenylephrine HCl 80 mg/Sodium Chloride 250 ml @ 7.5 mls/hr Q24H IV 01/19/25 12:00 Polyethylene Glycol 17 gm DAILYPRN PRN PO 01/21/25 12:15 01/25/25 09:59 17 GM Sennosides 8.6 mg QHSP PRN PO 01/21/25 12:15 01/24/25 23:56 8.6 MG Norepinephrine Bitartrate 32 mg/ Sodium Chloride 250 ml @ 0.938 mls/ hr Q24H IV 01/21/25 12:15 02/07/25 17:43 8.438 MLS/HR Midodrine 10 mg TID@0600,1200,1800 PO 01/24/25 06:00 02/07/25 05:58 10 MG Morphine Sulfate 2 mg Q2HPRN PRN IV 01/28/25 15:30 02/08/25 04:40 2 MG Nystatin 5 ml QID MT 01/29/25 12:00 02/07/25 12:07 5 ML Amiodarone HCl 200 mg Q12HR PO 02/01/25 10:00 02/08/25 10:25 200 MG Lactulose 30 ml DAILY PO 02/03/25 10:00 02/08/25 10:25 30 ML Hydromorphone HCl 0.5 mg Q2HPRN PRN IV 02/03/25 16:15 02/07/25 03:17 0.5 MG Glycopyrrolate 0.4 mg Q4HP PRN IV 02/03/25 16:15 Lorazepam 0.5 mg Q4HP PRN IV 02/03/25 16:15 Phenol/Menthol 1 spr Q4HP PRN MT 02/05/25 13:45 02/05/25 17:27 1 SPR Linezolid 300 ml @ 150 mls/hr Q12HR IV 02/06/25 10:00 02/08/25 10:24 150 MLS/HR Amino Acids 0 ml @ 0 mls/hr PER PHARMACY IV 02/06/25 11:00 Meropenem 50 ml @ 17 mls/hr Q12H IV 02/07/25 10:00 02/08/25 10:25 17 MLS/HR Fat Emulsion Intravenous 100 ml/Sodium Chloride 60 meq/ Sodium Acetate 40 meq/Multivitamins 10 ml/Insulin Human Regular 2 units/Amino Acids/ Dextrose 995.02 ml @ 41 mls/hr [id number] IV 02/07/25 22:00 02/08/25 21:59 02/07/25 22:45 41 MLS/HR objective GENERAL: Alert and oriented x 2. No acute distress. EYES: PERRL, EOMI. Anicteric. HENT: Moist mucous membranes. LUNGS: Clear to auscultation bilaterally. CARDIOVASCULAR: Regular rate and rhythm. Systolic murmur. ABDOMEN: Ascites, large distended abdomen. EXTREMITIES: No edema. NEUROLOGIC: No focal neurological deficits. SKIN: Mottling to bilateral lower extremities. Bilateral feet cool to touch. laboratory and microbiology Laboratory Tests 02/08/25 08:35 02/08/25 07:02 Test 02/08/25 07:02 Range/Units Serum Glucose 313 H 74-106 mg/dL Problem List Atrial tachycardia, now in junctional rhythm. NSTEMI, likely type II. Chronic HFpEF with right-sided heart failure, NYHA class III. History of atrial fibrillation (on amiodarone and Eliquis). Chronic pericardial effusion. History of hypertension. Hyperlipidemia. Decompensated liver cirrhosis with refractory ascites. Ascites. Type 2 diabetes mellitus. End-stage renal disease on hemodialysis. Acute hepatic/metabolic/toxic encephalopathy. Acute hypoxic respiratory failure. Septic shock due to Enterococcus faecium. Blindness. Hearing loss. Assessment/Plan Continued all current supportive medical care. Amiodarone. Dilaudid and Morphine for pain management. GI prophylactics. IV antibiotics as ordered. Vasopressors for hemodynamic support. Additional plan as per the hospital course. Critical care time of 45 minutes provided to include time spent evaluation of patient at bedside, when appropriate patient/family education for diagnosis, treatment plan, review of pertinent medical information and discussion of care with specialty providers and PCP. Dietary Evaluation Review Comments: 1) Nepro carb steady 240ml BID (ordered per ONS protocol) 2) Neprhro-Kaela 1 tab daily 3) Continue current plan of care Expected Outcomes/Goals: To meet >75% estimated needs Fu 3-5 days Plan discussed with: Other SOREN MARTINEZ MD February 08, 2025 12:07
[2025-02-08] MEDS ORDERED: POTASSIUM PHOSPHATE 22 MEQ in SODIUM CHL 0.9% 100 ML IV ONE (13:45)
[2025-02-08] MEDS: SODIUM PHOSPHATES 10 MEQ in SODIUM CHL 0.9% 100 ML IV ONE (14:00)
[2025-02-08] MEDS: MORPHINE SULFATE INJ 2 MG/ml SYRG IV ONE (17:10)
[2025-02-08] MEDS: InsuLIN REG 1unit/0.01ml Soln (100units/ml) SC SCH (17:22)
--- NOTE | 2025-02-08 20:16 | DVH ---
BILATERAL LOWER EXTREMITY VENOUS DOPPLER ULTRASOUND CLINICAL HISTORY: R/O DVT TECHNIQUE: Grayscale ultrasound with compression, color Doppler flow imaging with pulsed duplex sonog abad of the bilateral lower extremity deep venous system from the common femoral veins through the p opliteal veins is performed. COMPARISON: None FINDINGS: [employer] reports that evaluation is technically limited due to bilateral femoral catheters. Right common femoral vein: Not visualized Right greater saphenous vein: Not visualized Right deep femoral vein: Not visualized Right femoral vein: Proximal portion not visualized. Mid and distal portions appear patent. Right popliteal vein: Negative. Left common femoral vein: Not visualized Left greater saphenous vein: Not Left deep femoral vein: Not visualized Left femoral vein: Proximal portion not visualized. Mid and distal portions appear patent. Left popliteal vein: Negative. Other: Bilateral popliteal trifurcation and posterior tibial veins demonstrate color flow. IMPRESSION: Limited study. No sonographic evidence of deep venous thrombosis in the above imaged venous structures. If there is persistent clinical concern, short-term interval follow-up may be considered to re-evalua te.
--- NOTE | 2025-02-08 21:26 | DVHPN2 ---
Progress Note Date Seen: February 08, 2025 Medical Necessity Reason Pt with a Central, PICC or Fol: Yes The following are medically ne: Central Line Subjective Patient reports: No new complaints Review of Systems: Deferred Objective vital signs Vital Sign Date Time Temp Pulse Resp B/P (MAP) Pulse Ox O2 Delivery O2 Flow Rate FiO2 02/08/25 20:00 92 02/08/25 20:00 16 100 Nasal Cannula* 4 36 02/08/25 19:15 107/43 (64) 02/08/25 18:00 98.6 98.6 Total Intake and Output 02/07/25 02/07/25 02/08/25 15:00 23:00 07:00 Intake Total 667.974 ml 476.092 ml 1044.095 ml Output Total 2500 ml Balance 667.974 ml -2023.908 ml 1044.095 ml medications Current Medications Medications Dose Ordered Sig/Honey Route Start Time Stop Time Status Last Admin Dose Admin Diagnostic Test (Pha) 1 strip Q6HR 01/09/25 06:00 02/08/25 17:26 1 STRIP Dextrose 50 ml UD PRN IV 01/09/25 00:30 01/18/25 10:40 50 ML Pantoprazole Sodium 40 mg DAILY IV 01/10/25 10:00 02/08/25 10:24 40 MG Ondansetron HCl 4 mg Q8HPRN PRN IV 01/09/25 10:30 01/30/25 20:04 4 MG Acetaminophen 650 mg Q6HP PRN PO 01/09/25 10:30 02/07/25 23:43 650 MG Ferrous Sulfate 325 mg BIDWM PO 01/10/25 18:00 02/08/25 10:25 325 MG Sevelamer HCl 800 mg TIDWM PO 01/10/25 18:00 02/08/25 10:25 800 MG Gabapentin 100 mg TID PO 01/11/25 14:00 02/08/25 13:20 100 MG Emollient Ointment 1 applic PRN PRN TOP 01/14/25 10:30 02/02/25 04:36 1 APPLIC Albumin Human 100 ml @ 100 mls/hr PRN PRN IV 01/15/25 10:30 02/06/25 10:08 100 MLS/HR Multivit/Ca Carb/ B Cmplx/FA/Prenat 1 tab DAILY PO 01/16/25 10:00 02/08/25 10:25 1 TAB Phenylephrine HCl 80 mg/Sodium Chloride 250 ml @ 7.5 mls/hr Q24H IV 01/19/25 12:00 Polyethylene Glycol 17 gm DAILYPRN PRN PO 01/21/25 12:15 01/25/25 09:59 17 GM Sennosides 8.6 mg QHSP PRN PO 01/21/25 12:15 01/24/25 23:56 8.6 MG Norepinephrine Bitartrate 32 mg/ Sodium Chloride 250 ml @ 0.938 mls/ hr Q24H IV 01/21/25 12:15 02/07/25 17:43 8.438 MLS/HR Midodrine 10 mg TID@0600,1200,1800 PO 01/24/25 06:00 02/07/25 05:58 10 MG Morphine Sulfate 2 mg Q2HPRN PRN IV 01/28/25 15:30 02/08/25 04:40 2 MG Nystatin 5 ml QID MT 01/29/25 12:00 02/07/25 12:07 5 ML Amiodarone HCl 200 mg Q12HR PO 02/01/25 10:00 02/08/25 10:25 200 MG Lactulose 30 ml DAILY PO 02/03/25 10:00 02/08/25 10:25 30 ML Hydromorphone HCl 0.5 mg Q2HPRN PRN IV 02/03/25 16:15 02/07/25 03:17 0.5 MG Glycopyrrolate 0.4 mg Q4HP PRN IV 02/03/25 16:15 Lorazepam 0.5 mg Q4HP PRN IV 02/03/25 16:15 Phenol/Menthol 1 spr Q4HP PRN MT 02/05/25 13:45 02/05/25 17:27 1 SPR Linezolid 300 ml @ 150 mls/hr Q12HR IV 02/06/25 10:00 02/08/25 10:24 150 MLS/HR Amino Acids 0 ml @ 0 mls/hr PER PHARMACY IV 02/06/25 11:00 Meropenem 50 ml @ 17 mls/hr Q12H IV 02/07/25 10:00 02/08/25 10:25 17 MLS/HR Fat Emulsion Intravenous 100 ml/Sodium Chloride 60 meq/ Sodium Acetate 40 meq/Multivitamins 10 ml/Insulin Human Regular 2 units/Amino Acids/ Dextrose 995.02 ml @ 41 mls/hr [id number] IV 02/07/25 22:00 02/08/25 21:59 02/07/25 22:45 41 MLS/HR Fat Emulsion Intravenous 150 ml/Sodium Chloride 80 meq/ Potassium Phosphate 20 meq/ Magnesium Sulfate 4 meq/ Multivitamins 10 ml/Insulin Human Regular 6 units/ Amino Acids/ Dextrose 1,135.6055 ml @ 47 mls/hr [id number] IV 02/08/25 22:00 02/09/25 21:59 Insulin Human Regular FOLLOW SLIDING SCALE Q6HR SC 02/08/25 18:00 02/08/25 17:22 16 UNITS Examination: GENERAL:Abnormal, LUNGS:Abnormal, MSK:Abnormal, SKIN:Abnormal, NEURO:Abnormal laboratory and microbiology Laboratory Tests 02/08/25 08:35 02/08/25 07:02 Test 02/08/25 07:02 Range/Units Serum Glucose 313 H 74-106 mg/dL Microbiology Date/Time Source Procedure Growth Status 02/06/25 08:57 Blood Blood Culture - Final Klebsiella pneumoniae Complete 01/10/25 12:45 Ascities Fluid Gram Stain - Final Complete 01/10/25 12:45 Ascities Fluid Body Fluid Culture - Final Complete 01/09/25 14:00 Sputum Gram Stain - Final Complete 01/09/25 14:00 Respiratory Culture - Final Presumptive Lisa albicans Complete 01/09/25 05:00 Nose MRSA Screen - Final Complete Problem List/Assessment/Plan Problem List/Assessment/Plan End-stage renal disease on hemodialysis Heart failure with recent pericardial drainage due to recurrent pericardial effusions decompensated cirrhosis Diabetes Shock septic hyperkalemia VRE bacteremia recs HD tomorrow on abx on levo poor prognosis blood cx + Plan discussed with: Other My Orders My Orders Orders - LARISA MCKEON MD Procedure Category Date Status Time Amino Acid PHA 02/08/25 In Process Infusion... W/Fat 22:00 Hemodialysis Orders ORDERS 02/09/25 Transmitted 04:00 Dietary Evaluation Review Comments: 1) Nepro carb steady 240ml BID (ordered per [facility] protocol) 2) Neprhro-Kaela 1 tab daily 3) Continue current plan of care Expected Outcomes/Goals: To meet >75% estimated needs Fu 3-5 days LARISA MCKEON MD February 08, 2025 21:26
--- NOTE | 2025-02-08 21:58 | DVHPN2 ---
Progress Note - Dictate Date Seen: February 08, 2025 Medical Necessity Reason Pt with a Central, PICC or Fol: Yes The following are medically ne: Central Line Subjective Patient seen and examined at bedside. Remains on supplemental oxygen Overnight events reviewed. vital signs Vital Sign Date Time Temp Pulse Resp B/P (MAP) Pulse Ox O2 Delivery O2 Flow Rate FiO2 02/08/25 21:15 91 12 108/44 (65) 100 02/08/25 20:00 97.7 97.7 02/08/25 20:00 Nasal Cannula* 4 36 Total Intake and Output 02/07/25 02/07/25 02/08/25 15:00 23:00 07:00 Intake Total 667.974 ml 476.092 ml 1044.095 ml Output Total 2500 ml Balance 667.974 ml -2023.908 ml 1044.095 ml medications Current Medications Medications Dose Ordered Sig/Honey Route Start Time Stop Time Status Last Admin Dose Admin Diagnostic Test (Pha) 1 strip Q6HR 01/09/25 06:00 02/08/25 17:26 1 STRIP Dextrose 50 ml UD PRN IV 01/09/25 00:30 01/18/25 10:40 50 ML Pantoprazole Sodium 40 mg DAILY IV 01/10/25 10:00 02/08/25 10:24 40 MG Ondansetron HCl 4 mg Q8HPRN PRN IV 01/09/25 10:30 01/30/25 20:04 4 MG Acetaminophen 650 mg Q6HP PRN PO 01/09/25 10:30 02/07/25 23:43 650 MG Ferrous Sulfate 325 mg BIDWM PO 01/10/25 18:00 02/08/25 10:25 325 MG Sevelamer HCl 800 mg TIDWM PO 01/10/25 18:00 02/08/25 10:25 800 MG Gabapentin 100 mg TID PO 01/11/25 14:00 02/08/25 13:20 100 MG Emollient Ointment 1 applic PRN PRN TOP 01/14/25 10:30 02/02/25 04:36 1 APPLIC Albumin Human 100 ml @ 100 mls/hr PRN PRN IV 01/15/25 10:30 02/06/25 10:08 100 MLS/HR Multivit/Ca Carb/ B Cmplx/FA/Prenat 1 tab DAILY PO 01/16/25 10:00 02/08/25 10:25 1 TAB Phenylephrine HCl 80 mg/Sodium Chloride 250 ml @ 7.5 mls/hr Q24H IV 01/19/25 12:00 Polyethylene Glycol 17 gm DAILYPRN PRN PO 01/21/25 12:15 01/25/25 09:59 17 GM Sennosides 8.6 mg QHSP PRN PO 01/21/25 12:15 01/24/25 23:56 8.6 MG Norepinephrine Bitartrate 32 mg/ Sodium Chloride 250 ml @ 0.938 mls/ hr Q24H IV 01/21/25 12:15 02/07/25 17:43 8.438 MLS/HR Midodrine 10 mg TID@0600,1200,1800 PO 01/24/25 06:00 02/07/25 05:58 10 MG Morphine Sulfate 2 mg Q2HPRN PRN IV 01/28/25 15:30 02/08/25 04:40 2 MG Nystatin 5 ml QID MT 01/29/25 12:00 02/07/25 12:07 5 ML Amiodarone HCl 200 mg Q12HR PO 02/01/25 10:00 02/08/25 10:25 200 MG Lactulose 30 ml DAILY PO 02/03/25 10:00 02/08/25 10:25 30 ML Hydromorphone HCl 0.5 mg Q2HPRN PRN IV 02/03/25 16:15 02/07/25 03:17 0.5 MG Glycopyrrolate 0.4 mg Q4HP PRN IV 02/03/25 16:15 Lorazepam 0.5 mg Q4HP PRN IV 02/03/25 16:15 Phenol/Menthol 1 spr Q4HP PRN MT 02/05/25 13:45 02/05/25 17:27 1 SPR Linezolid 300 ml @ 150 mls/hr Q12HR IV 02/06/25 10:00 02/08/25 10:24 150 MLS/HR Amino Acids 0 ml @ 0 mls/hr PER PHARMACY IV 02/06/25 11:00 Meropenem 50 ml @ 17 mls/hr Q12H IV 02/07/25 10:00 02/08/25 10:25 17 MLS/HR Fat Emulsion Intravenous 100 ml/Sodium Chloride 60 meq/ Sodium Acetate 40 meq/Multivitamins 10 ml/Insulin Human Regular 2 units/Amino Acids/ Dextrose 995.02 ml @ 41 mls/hr [id number] IV 02/07/25 22:00 02/08/25 21:59 02/07/25 22:45 41 MLS/HR Fat Emulsion Intravenous 150 ml/Sodium Chloride 80 meq/ Potassium Phosphate 20 meq/ Magnesium Sulfate 4 meq/ Multivitamins 10 ml/Insulin Human Regular 6 units/ Amino Acids/ Dextrose 1,135.6055 ml @ 47 mls/hr [id number] IV 02/08/25 22:00 02/09/25 21:59 Insulin Human Regular FOLLOW SLIDING SCALE Q6HR SC 02/08/25 18:00 02/08/25 17:22 16 UNITS objective Gen.: Patient lying in bed in no apparent distress. On supplemental oxygen. Head: Normocephalic, atraumatic. Eyes: EOMI/PERRLA. Ears: Normal hearing. Normal anatomy. Neck/trachea: Trachea midline, supple. Nose: Normal external anatomy. Mouth: Moist mucous membranes. Chest: Decreased air entry bilaterally. No wheezing or rhonchi. Cardiovascular: Positive S1, positive S2. Regular rate and rhythm. Abdomen: Positive bowel sounds in all 4 quadrants. Soft, non-tender, non- distended. : Deferred. Rectal: Deferred. Skin: Warm, dry. Intact. Extremities: 2+ radial pulses bilaterally. No lower extremity edema. Neuro: Awake, alert, oriented x3. No gross motor or sensory deficits. Cranial nerves II through XII intact. Gait not assessed. laboratory and microbiology Laboratory Tests 02/08/25 08:35 02/08/25 07:02 Test 02/08/25 07:02 Range/Units Serum Glucose 313 H 74-106 mg/dL Assessment/Plan Impression: Acute hypoxic respiratory failure Dependence on supplemental oxygen End-stage renal disease, on hemodialysis Heart failure with recent pericardial window due to recurrent pericardial effusions Refractory ascites due to cirrhosis with frequent paracentesis Diabetes mellitus Non-ST elevation IN Events: Patient seen and examined at bedside. On 4 liters per minute nasal cannula with humidifier Taper O2 as tolerated Note, patient is refusing medications Remains on pressors for hemodynamic support On Levophed at 16.5 mcg/min Titrate to keep mean arterial pressure greater than 65 mmHg. Slightly improved pressor requirements Midodrine for blood pressure support. Plan for PICC line Head of bed elevation Aspiration precautions Continue antibiotics WBC elevated at 33.1 K. Incentive spirometry Amiodarone PO Nystatin for thrush Hemodialysis per Nephrology - HD yesterday - removed 2.5 liters Nephrology recs appreciated Monitor renal function Monitor hemoglobin - stable at 7.6 g/dL Transfuse to keep greater than or equal to 7 g/dL Iron supplementation Accu-Cheks, ISS Pain control Avoid oversedation TPN for nutritional support Protonix for GI prophylaxis Recommend LTAC. Poor prognosis due to multiple comorbidities. Family discussion with [employer]IST - family declined hospice. S/p paracentesis on 01/13/25- 3.3 liters of ascitic fluid removed Received albumin post paracentesis - See separate procedure note for details. S/p paracentesis on 01/10/25 Labs and imaging reviewed. Rest of plan as noted below. Plan: Supplemental oxygen Titrate to keep O2 sats above 92%. Head of bed elevation Aspiration precautions Off steroids Pressors as necessary for hemodynamic support Titrate to keep mean arterial pressure greater than 65 mmHg. Accu-Cheks, ISS Hemodialysis per Nephrology Nephrology recommendations appreciated. Monitor renal function. Monitor electrolytes. Supplement as necessary. Monitor ins and outs. GI prophylaxis - Protonix DVT prophylaxis. Prognosis: Poor given patient's multiple co-morbidities. Condition: Critical Rest of plan per hospitalist and other consultants. A total of 35 minutes of critical care time was spent reviewing the patient record, examining the patient, making a diagnostic and therapeutic plan, discussing this plan with the medical personnel, following up on diagnostic studies and following the patient for clinical stability excluding any and all procedures. At least 50% of this time was spent in direct, [id number] contact. Thank you, ELLIE Moreland, for allowing me to participate in this patient's care. Further recommendations will depend on the patient's clinical course. Please do not hesitate to contact me if you have any questions or concerns. This medical document was created using an electronic medical record system with [employer] system. Although these documentations are being carefully reviewed, there may still be some phonetic and typographical changes. The errors are purely typographical, due to imperfection on the software program, and do not reflect any compromise in the patient's medical care. Dietary Evaluation Review Comments: 1) Nepro carb steady 240ml BID (ordered per [facility] protocol) 2) Neprhro-Kaela 1 tab daily 3) Continue current plan of care Expected Outcomes/Goals: To meet >75% estimated needs Fu 3-5 days Plan discussed with: Patient, Other (LAVERNE Garcia) Critical Care Time(min): 35 MAYE HEATH MD February 08, 2025 21:58
[2025-02-08] MEDS: [UNRECOGNIZED DRUG - OTHER] IV NR (22:24)
[2025-02-08] MEDS: SODIUM CHLORIDE IV NR (22:24)
[2025-02-08] MEDS: POTASSIUM PHOSPHATE IV NR (22:24)
[2025-02-08] MEDS: FAT EMULSION IV NR (22:24)
[2025-02-09] VITALS (96 sets, daily range): BP systolic 83–148; BP diastolic 20–86; PULSE 89–127; RESP 9–33; TEMP 97.2–99.7; O2SAT 79–100
[2025-02-09 06:51] LABS: Basophils # (auto) 0.1 10 ^3/uL (0-0.2); Monocytes # (auto) 0.5 10 ^3/uL (0-1.3)
[2025-02-09 06:54] LABS: Basophils % (auto) 0.5 % (0.0-2.0); Eosinophils # (auto) 0.3 10 ^3/uL (0-0.8); Eosinophils % (auto) 1.1 % (0.0-7.0); Hematocrit 22.7 % (36.0-46.0); Hemoglobin 7.3 g/dL (12.2-16.2); Lymphocytes # (auto) 0.4 10 ^3/uL (0.4-5.4); Lymphocytes % (auto) 1.7 % (10.0-50.0); Mean Corpuscular Hemoglobin 31.9 pg (28.0-32.0); Mean Corpuscular Hgb Conc. 32.3 g/dL (32.0-36.0); Mean Corpuscular Volume 98.7 fL (80.0-100.0); Neutrophils # (auto) 21.9 10 ^3/uL (1.6-8.6); Neutrophils % (auto) 94.7 % (37.0-80.0); Nucleated Red Blood Cells % 0.1 %; Platelet Count (auto) 82 10^3/uL (140-450); Red Cell Distribution Width 19.9 % (11.8-14.3); White Blood Cell 23.2 10^3/uL (4.4-10.8)
[2025-02-09 07:16] LABS: Alanine Aminotransferase 14 U/L (7-40); Albumin 3.3 g/dL (3.2-4.8); Anion Gap 8 (5-15); BUN/Creatinine Ratio 19.6 (10.0-20.0); Calcium 9.4 mg/dL (8.7-10.4); Carbon Dioxide 24 mmol/L (20-31)
[2025-02-09 07:19] LABS: Alkaline Phosphatase 243 U/L (46-116); Aspartate Aminotransferase 12 U/L (13-40); Bilirubin, Total 2.7 mg/dL (0.2-1.0); Blood Urea Nitrogen 66 mg/dL (9-23); Chloride 92 mmol/L (98-107); Glucose 378 mg/dL (74-106); Potassium 2.9 mmol/L (3.5-5.1); Sodium 124 mmol/L (136-145); Total Protein 5.3 g/dL (5.7-8.2)
[2025-02-09] MEDS: POTASSIUM CHL 20MEQ/100ML 100 ML IV SCH (10:45)
--- NOTE | 2025-02-09 10:52 | MEDREC ---
[facility] Intervention Section I [facility] Intervention: Deescalate AB based on CS (The Final Blood Culture showed Klebsiella pneumoniae + Klebsiella pneumoniae#2 which are susceptible Ceftriaxone. Thrombocytopenia has been reported in patients taking meropenem with renal impairment (platelet 82 on 02/09). Please consider de-escalating Meropenem to CEFTRIAXONE 2 grams IV DAILY) JETHRO WATTS February 09, 2025 10:52
[2025-02-09] MEDS: SODIUM PHOSPHATES 20 MEQ in SODIUM CHL 0.9% 100 ML IV ONE (11:15)
--- NOTE | 2025-02-09 11:49 | DVHPN2 ---
Reviewed: Care Plan, H&P, Labs, Medications, Previous Orders, Radiology, Other (Consultations) Changes from previous H/P or p: No Changes General: Per HPI Objective Vitals Vital Signs Date Time Temp Pulse Resp B/P (MAP) Pulse Ox O2 Delivery O2 Flow Rate FiO2 02/09/25 08:00 11 100 Nasal Cannula* 2 28 02/09/25 08:00 92 02/09/25 06:45 137/81 (99) 02/09/25 04:00 97.2 97.2 Intake/Output Intake and Output 02/09/25 07:00 Intake Total 2256.911 ml Output Total 0 ml Balance 2256.911 ml Intake Oral 350 ml IV Total 1906.911 ml Output Urine Total 0 ml General Appearance: Alert, moderate distress, Other (Encephalopathic) HEENT: Atraumatic, Other (Blind) Lungs: Other (Decreased air entry bilateral) Cardiovascular: Normal S1, Normal S2, Other (Tracking failure) Abdomen: Normal bowel sounds, Soft, No tenderness, Other (Resolved ascites after paracentesis of almost 4 liters) Musculoskeletal: Weak motor strength RUE, Weak motor strength LUE, Weak motor strength RLE, Weak motor strength LLE Extremities: Other (Left upper extremity AV fistula with good bruit and thrill; dusky extremities) Neuro: Normal speech, Cranial nerves 3-12 NL, Other (Reviewed) Skin: Dry, Intact Psych/Mental Status: Mental status NL, Mood NL Medications Current Medications Medications Dose Ordered Sig/Honey Route Start Time Stop Time Status Last Admin Dose Admin Diagnostic Test (Pha) 1 strip Q6HR 01/09/25 06:00 02/09/25 05:48 1 STRIP Dextrose 50 ml UD PRN IV 01/09/25 00:30 01/18/25 10:40 50 ML Pantoprazole Sodium 40 mg DAILY IV 01/10/25 10:00 02/09/25 10:25 40 MG Ondansetron HCl 4 mg Q8HPRN PRN IV 01/09/25 10:30 01/30/25 20:04 4 MG Acetaminophen 650 mg Q6HP PRN PO 01/09/25 10:30 02/07/25 23:43 650 MG Ferrous Sulfate 325 mg BIDWM PO 01/10/25 18:00 02/08/25 10:25 325 MG Sevelamer HCl 800 mg TIDWM PO 01/10/25 18:00 02/08/25 10:25 800 MG Gabapentin 100 mg TID PO 01/11/25 14:00 02/09/25 05:46 100 MG Emollient Ointment 1 applic PRN PRN TOP 01/14/25 10:30 02/02/25 04:36 1 APPLIC Albumin Human 100 ml @ 100 mls/hr PRN PRN IV 01/15/25 10:30 02/06/25 10:08 100 MLS/HR Multivit/Ca Carb/ B Cmplx/FA/Prenat 1 tab DAILY PO 01/16/25 10:00 02/08/25 10:25 1 TAB Phenylephrine HCl 80 mg/Sodium Chloride 250 ml @ 7.5 mls/hr Q24H IV 01/19/25 12:00 Polyethylene Glycol 17 gm DAILYPRN PRN PO 01/21/25 12:15 01/25/25 09:59 17 GM Sennosides 8.6 mg QHSP PRN PO 01/21/25 12:15 01/24/25 23:56 8.6 MG Norepinephrine Bitartrate 32 mg/ Sodium Chloride 250 ml @ 0.938 mls/ hr Q24H IV 01/21/25 12:15 02/08/25 22:42 7.734 MLS/HR Midodrine 10 mg TID@0600,1200,1800 PO 01/24/25 06:00 02/07/25 05:58 10 MG Morphine Sulfate 2 mg Q2HPRN PRN IV 01/28/25 15:30 02/08/25 04:40 2 MG Nystatin 5 ml QID MT 01/29/25 12:00 02/09/25 05:46 5 ML Amiodarone HCl 200 mg Q12HR PO 02/01/25 10:00 02/08/25 10:25 200 MG Lactulose 30 ml DAILY PO 02/03/25 10:00 02/08/25 10:25 30 ML Hydromorphone HCl 0.5 mg Q2HPRN PRN IV 02/03/25 16:15 02/07/25 03:17 0.5 MG Glycopyrrolate 0.4 mg Q4HP PRN IV 02/03/25 16:15 Lorazepam 0.5 mg Q4HP PRN IV 02/03/25 16:15 Phenol/Menthol 1 spr Q4HP PRN MT 02/05/25 13:45 02/05/25 17:27 1 SPR Linezolid 300 ml @ 150 mls/hr Q12HR IV 02/06/25 10:00 02/09/25 10:25 150 MLS/HR Amino Acids 0 ml @ 0 mls/hr PER PHARMACY IV 02/06/25 11:00 Meropenem 50 ml @ 17 mls/hr Q12H IV 02/07/25 10:00 02/09/25 10:25 17 MLS/HR Fat Emulsion Intravenous 150 ml/Sodium Chloride 80 meq/ Potassium Phosphate 20 meq/ Magnesium Sulfate 4 meq/ Multivitamins 10 ml/Insulin Human Regular 6 units/ Amino Acids/ Dextrose 1,135.6055 ml @ 47 mls/hr [id number] IV 02/08/25 22:00 02/09/25 21:59 02/08/25 22:24 47 MLS/HR Insulin Human Regular FOLLOW SLIDING SCALE Q6HR AR 02/08/25 18:00 02/09/25 05:48 16 UNITS Fat Emulsion Intravenous 200 ml/Sodium Chloride 80 meq/ Sodium Acetate 20 meq/Potassium Chloride 60 meq/ Magnesium Sulfate 6 meq/ Multivitamins 10 ml/Insulin Human Regular 16 units/ Amino Acids/ Dextrose 1,271.66 ml @ 53 mls/hr Q24H IV 02/09/25 22:00 02/10/25 21:59 Potassium Chloride 100 ml @ 50 mls/hr Q2H IV 02/09/25 10:45 02/09/25 14:44 Laboratory Results Laboratory Tests 02/09/25 04:30 Chemistry Test 02/09/25 04:30 Albumin 3.3 g/dL (3.2-4.8) Calcium Level 9.4 mg/dL (8.7-10.4) Magnesium Level 2.0 mg/dL (1.6-2.6) Phosphorus Level 2.0 mg/dL (2.4-5.1) L Total Protein 5.3 g/dL (5.7-8.2) L LFT Test 02/09/25 04:30 Alanine Aminotransferase (ALT) 14 U/L (7-40) Alkaline Phosphatase 243 U/L (46-116) H Aspartate Amino Transferase (AST) 12 U/L (13-40) L Total Bilirubin 2.7 mg/dL (0.2-1.0) H Microbiology Microbiology Date/Time Source Procedure Growth Status 02/06/25 08:57 Blood Blood Culture - Final Klebsiella pneumoniae Complete 01/10/25 12:45 Ascities Fluid Gram Stain - Final Complete 01/10/25 12:45 Ascities Fluid Body Fluid Culture - Final Complete 01/09/25 14:00 Sputum Gram Stain - Final Complete 01/09/25 14:00 Respiratory Culture - Final Presumptive Lisa albicans Complete 01/09/25 05:00 Nose MRSA Screen - Final Complete Labs and/or images reviewed: Labs reviewed by me, Image(s) reviewed by me Assessment/Plan Assessment/Plan Covering for Dr. Moreland -septic shock with VRE in the blood continue meropenem and zyvox -cirrhosis with severe ascites -ESRD with hemodialysis -NSTEMI, probably type secondary to recent pericardiocentesis -legally blind -anemia of chronic disease - dyslipidemia -paroxysmal atrial fibrillation -possible infiltration of norepinephrine to right upper extremity with extravasation. Seen in the [facility] Time spent 70 minutes Patient is chemical code Advanced care planning time 20 mts Plan discussed with: Other (RN) Date of Service: February 09, 2025 Billing Provider: ABDOULAYE CAMERON MD Common Visit Codes: [id number]-[id number] CARE 30-74 MIN ABDOULAYE CAMERON MD February 09, 2025 11:49
[2025-02-09] MEDS ORDERED: DEXTROSE (50%) 50ML SYRG IV PRN (13:45)
--- NOTE | 2025-02-09 15:33 | DVHPN2 ---
Progress Note Date Seen: February 09, 2025 Medical Necessity Reason Pt with a Central, PICC or Fol: Yes The following are medically ne: Central Line Subjective Patient reports: Other (No new events patient refusing oral meds per RN bedside) Review of Systems: Deferred Objective vital signs Vital Sign Date Time Temp Pulse Resp B/P (MAP) Pulse Ox O2 Delivery O2 Flow Rate FiO2 02/09/25 12:00 93 02/09/25 12:00 13 89 Nasal Cannula* 1 24 02/09/25 06:45 137/81 (99) 02/09/25 04:00 97.2 97.2 Total Intake and Output 02/08/25 02/08/25 02/09/25 15:00 23:00 07:00 Intake Total 740.872 ml 698.369 ml 870.764 ml Output Total 0 ml Balance 740.872 ml 698.369 ml 870.764 ml medications Current Medications Medications Dose Ordered Sig/Honey Route Start Time Stop Time Status Last Admin Dose Admin Diagnostic Test (Pha) 1 strip Q6HR 01/09/25 06:00 02/09/25 11:51 1 STRIP Dextrose 50 ml UD PRN IV 01/09/25 00:30 01/18/25 10:40 50 ML Pantoprazole Sodium 40 mg DAILY IV 01/10/25 10:00 02/09/25 10:25 40 MG Ondansetron HCl 4 mg Q8HPRN PRN IV 01/09/25 10:30 01/30/25 20:04 4 MG Acetaminophen 650 mg Q6HP PRN PO 01/09/25 10:30 02/07/25 23:43 650 MG Ferrous Sulfate 325 mg BIDWM PO 01/10/25 18:00 02/08/25 10:25 325 MG Sevelamer HCl 800 mg TIDWM PO 01/10/25 18:00 02/08/25 10:25 800 MG Gabapentin 100 mg TID PO 01/11/25 14:00 02/09/25 05:46 100 MG Emollient Ointment 1 applic PRN PRN TOP 01/14/25 10:30 02/02/25 04:36 1 APPLIC Albumin Human 100 ml @ 100 mls/hr PRN PRN IV 01/15/25 10:30 02/06/25 10:08 100 MLS/HR Multivit/Ca Carb/ B Cmplx/FA/Prenat 1 tab DAILY PO 01/16/25 10:00 02/08/25 10:25 1 TAB Phenylephrine HCl 80 mg/Sodium Chloride 250 ml @ 7.5 mls/hr Q24H IV 01/19/25 12:00 Polyethylene Glycol 17 gm DAILYPRN PRN PO 01/21/25 12:15 01/25/25 09:59 17 GM Sennosides 8.6 mg QHSP PRN PO 01/21/25 12:15 01/24/25 23:56 8.6 MG Norepinephrine Bitartrate 32 mg/ Sodium Chloride 250 ml @ 0.938 mls/ hr Q24H IV 01/21/25 12:15 02/08/25 22:42 7.734 MLS/HR Midodrine 10 mg TID@0600,1200,1800 PO 01/24/25 06:00 02/07/25 05:58 10 MG Morphine Sulfate 2 mg Q2HPRN PRN IV 01/28/25 15:30 02/08/25 04:40 2 MG Nystatin 5 ml QID MT 01/29/25 12:00 02/09/25 05:46 5 ML Amiodarone HCl 200 mg Q12HR PO 02/01/25 10:00 02/08/25 10:25 200 MG Lactulose 30 ml DAILY PO 02/03/25 10:00 02/08/25 10:25 30 ML Hydromorphone HCl 0.5 mg Q2HPRN PRN IV 02/03/25 16:15 02/07/25 03:17 0.5 MG Glycopyrrolate 0.4 mg Q4HP PRN IV 02/03/25 16:15 Lorazepam 0.5 mg Q4HP PRN IV 02/03/25 16:15 Phenol/Menthol 1 spr Q4HP PRN MT 02/05/25 13:45 02/05/25 17:27 1 SPR Linezolid 300 ml @ 150 mls/hr Q12HR IV 02/06/25 10:00 02/09/25 10:25 150 MLS/HR Amino Acids 0 ml @ 0 mls/hr PER PHARMACY IV 02/06/25 11:00 Meropenem 50 ml @ 17 mls/hr Q12H IV 02/07/25 10:00 02/09/25 10:25 17 MLS/HR Fat Emulsion Intravenous 150 ml/Sodium Chloride 80 meq/ Potassium Phosphate 20 meq/ Magnesium Sulfate 4 meq/ Multivitamins 10 ml/Insulin Human Regular 6 units/ Amino Acids/ Dextrose 1,135.6055 ml @ 47 mls/hr [id number] IV 02/08/25 22:00 02/09/25 21:59 02/08/25 22:24 47 MLS/HR Fat Emulsion Intravenous 200 ml/Sodium Chloride 80 meq/ Sodium Acetate 20 meq/Potassium Chloride 60 meq/ Magnesium Sulfate 6 meq/ Multivitamins 10 ml/Insulin Human Regular 16 units/ Amino Acids/ Dextrose 1,271.66 ml @ 53 mls/hr Q24H IV 02/09/25 22:00 02/10/25 21:59 Diagnostic Test (Pha) 1 strip Q6HR 02/09/25 18:00 Insulin Human Regular Q6HR SC 02/09/25 18:00 Dextrose 50 ml UD PRN IV 02/09/25 13:45 Examination: GENERAL:Abnormal, MSK:Abnormal (Positive edema) laboratory and microbiology Laboratory Tests 02/09/25 04:30 Test 02/09/25 04:30 Range/Units Serum Glucose 378 H 74-106 mg/dL Microbiology Date/Time Source Procedure Growth Status 02/06/25 08:57 Blood Blood Culture - Final Klebsiella pneumoniae Complete 01/10/25 12:45 Ascities Fluid Gram Stain - Final Complete 01/10/25 12:45 Ascities Fluid Body Fluid Culture - Final Complete 01/09/25 14:00 Sputum Gram Stain - Final Complete 01/09/25 14:00 Respiratory Culture - Final Presumptive Lisa albicans Complete 01/09/25 05:00 Nose MRSA Screen - Final Complete Problem List/Assessment/Plan Problem List/Assessment/Plan End-stage renal disease on hemodialysis Heart failure with recent pericardial drainage due to recurrent pericardial effusions decompensated cirrhosis Diabetes Shock septic hyperkalemia VRE bacteremia recs HD 02/09 next HD Tuesday on abx on levo poor prognosis blood cx + Klebsiella Dialysis dosing of antibiotics Plan discussed with: Patient My Orders My Orders Orders - LARISA MCKEON MD Procedure Category Date Status Time Hemodialysis Orders ORDERS 02/09/25 Verified 04:00 Dietary Evaluation Review Comments: 1) Nepro carb steady 240ml BID (ordered per [facility] protocol) 2) Neprhro-Kaela 1 tab daily 3) Continue current plan of care Expected Outcomes/Goals: To meet >75% estimated needs Fu 3-5 days LARISA MCKEON MD February 09, 2025 15:33
--- NOTE | 2025-02-09 16:02 | DVH ---
Clinical History: R/O DVT Comparison: US BILAT LOWER DVT on DOS: 02/08/25, RT LOWER DVT on DOS: 10/11/22 Technique: Duplex Doppler evaluation of the deep venous system of the left lower extremity from the common femor al vein to the popliteal vein including color Doppler and spectral/pulsed waveform analysis was perfo rmed. Findings: The common femoral vein not visualized There is nonvisualized greater saphenous vein The femoral vein demonstrates nonvisualized proximal femoral vein The deep femoral vein demonstrates appropriate compressibility and waveform variability. The popliteal vein demonstrates appropriate compressibility and waveform variability. There is normal compressibility at the tibioperoneal trunk. Impression: 1. No left deep venous thrombosis in visualized veins of the left lower extremity. The common femora l vein greater saphenous vein and proximal superficial femoral vein are not visible. 2. If clinical concern/symptoms persist or worsen, short-interval follow-up study is suggested.
[2025-02-09] MEDS: ACCU-CHEK COMFORT CURVE STRIP VI SCH (17:45)
[2025-02-09] MEDS: InsuLIN REG 1unit/0.01ml Soln (100units/ml) SC SCH (17:46)
--- NOTE | 2025-02-09 19:37 | DVHPN2 ---
Progress Note - Dictate Date Seen: February 09, 2025 Medical Necessity Reason Pt with a Central, PICC or Fol: Yes The following are medically ne: Central Line Subjective Patient seen and examined at bedside. Remains on supplemental oxygen Overnight events reviewed. vital signs Vital Sign Date Time Temp Pulse Resp B/P (MAP) Pulse Ox O2 Delivery O2 Flow Rate FiO2 02/09/25 18:45 101 14 115/43 (67) 98 02/09/25 18:00 Nasal Cannula* 2 28 02/09/25 16:45 99.3 99.3 Total Intake and Output 02/08/25 02/08/25 02/09/25 15:00 23:00 07:00 Intake Total 740.872 ml 698.369 ml 870.764 ml Output Total 0 ml Balance 740.872 ml 698.369 ml 870.764 ml medications Current Medications Medications Dose Ordered Sig/Honey Route Start Time Stop Time Status Last Admin Dose Admin Diagnostic Test (Pha) 1 strip Q6HR 01/09/25 06:00 02/09/25 11:51 1 STRIP Dextrose 50 ml UD PRN IV 01/09/25 00:30 01/18/25 10:40 50 ML Pantoprazole Sodium 40 mg DAILY IV 01/10/25 10:00 02/09/25 10:25 40 MG Ondansetron HCl 4 mg Q8HPRN PRN IV 01/09/25 10:30 01/30/25 20:04 4 MG Acetaminophen 650 mg Q6HP PRN PO 01/09/25 10:30 02/07/25 23:43 650 MG Ferrous Sulfate 325 mg BIDWM PO 01/10/25 18:00 02/08/25 10:25 325 MG Sevelamer HCl 800 mg TIDWM PO 01/10/25 18:00 02/08/25 10:25 800 MG Gabapentin 100 mg TID PO 01/11/25 14:00 02/09/25 05:46 100 MG Emollient Ointment 1 applic PRN PRN TOP 01/14/25 10:30 02/02/25 04:36 1 APPLIC Albumin Human 100 ml @ 100 mls/hr PRN PRN IV 01/15/25 10:30 02/09/25 16:21 100 MLS/HR Multivit/Ca Carb/ B Cmplx/FA/Prenat 1 tab DAILY PO 01/16/25 10:00 02/08/25 10:25 1 TAB Phenylephrine HCl 80 mg/Sodium Chloride 250 ml @ 7.5 mls/hr Q24H IV 01/19/25 12:00 Polyethylene Glycol 17 gm DAILYPRN PRN PO 01/21/25 12:15 01/25/25 09:59 17 GM Sennosides 8.6 mg QHSP PRN PO 01/21/25 12:15 01/24/25 23:56 8.6 MG Norepinephrine Bitartrate 32 mg/ Sodium Chloride 250 ml @ 0.938 mls/ hr Q24H IV 01/21/25 12:15 02/08/25 22:42 7.734 MLS/HR Midodrine 10 mg TID@0600,1200,1800 PO 01/24/25 06:00 02/07/25 05:58 10 MG Morphine Sulfate 2 mg Q2HPRN PRN IV 01/28/25 15:30 02/08/25 04:40 2 MG Nystatin 5 ml QID MT 01/29/25 12:00 02/09/25 05:46 5 ML Amiodarone HCl 200 mg Q12HR PO 02/01/25 10:00 02/08/25 10:25 200 MG Lactulose 30 ml DAILY PO 02/03/25 10:00 02/08/25 10:25 30 ML Hydromorphone HCl 0.5 mg Q2HPRN PRN IV 02/03/25 16:15 02/07/25 03:17 0.5 MG Glycopyrrolate 0.4 mg Q4HP PRN IV 02/03/25 16:15 Lorazepam 0.5 mg Q4HP PRN IV 02/03/25 16:15 Phenol/Menthol 1 spr Q4HP PRN MT 02/05/25 13:45 02/05/25 17:27 1 SPR Linezolid 300 ml @ 150 mls/hr Q12HR IV 02/06/25 10:00 02/09/25 10:25 150 MLS/HR Amino Acids 0 ml @ 0 mls/hr PER PHARMACY IV 02/06/25 11:00 Meropenem 50 ml @ 17 mls/hr Q12H IV 02/07/25 10:00 02/09/25 10:25 17 MLS/HR Fat Emulsion Intravenous 150 ml/Sodium Chloride 80 meq/ Potassium Phosphate 20 meq/ Magnesium Sulfate 4 meq/ Multivitamins 10 ml/Insulin Human Regular 6 units/ Amino Acids/ Dextrose 1,135.6055 ml @ 47 mls/hr [id number] IV 02/08/25 22:00 02/09/25 21:59 02/08/25 22:24 47 MLS/HR Fat Emulsion Intravenous 200 ml/Sodium Chloride 80 meq/ Sodium Acetate 20 meq/Potassium Chloride 60 meq/ Magnesium Sulfate 6 meq/ Multivitamins 10 ml/Insulin Human Regular 16 units/ Amino Acids/ Dextrose 1,271.66 ml @ 53 mls/hr Q24H IV 02/09/25 22:00 02/10/25 21:59 Diagnostic Test (Pha) 1 strip Q6HR 02/09/25 18:00 02/09/25 17:45 1 STRIP Insulin Human Regular Q6HR SC 02/09/25 18:00 02/09/25 17:46 4 UNITS Dextrose 50 ml UD PRN IV 02/09/25 13:45 objective Gen.: Patient lying in bed in no apparent distress. On supplemental oxygen. Head: Normocephalic, atraumatic. Eyes: EOMI/PERRLA. Ears: Normal hearing. Normal anatomy. Neck/trachea: Trachea midline, supple. Nose: Normal external anatomy. Mouth: Moist mucous membranes. Chest: Decreased air entry bilaterally. No wheezing or rhonchi. Cardiovascular: Positive S1, positive S2. Regular rate and rhythm. Abdomen: Positive bowel sounds in all 4 quadrants. Soft, non-tender, non- distended. : Deferred. Rectal: Deferred. Skin: Warm, dry. Intact. Extremities: 2+ radial pulses bilaterally. No lower extremity edema. Neuro: Awake, alert, oriented x3. No gross motor or sensory deficits. Cranial nerves II through XII intact. Gait not assessed. laboratory and microbiology Laboratory Tests 02/09/25 04:30 Test 02/09/25 04:30 Range/Units Serum Glucose 378 H 74-106 mg/dL Assessment/Plan Impression: Acute hypoxic respiratory failure Dependence on supplemental oxygen End-stage renal disease, on hemodialysis Heart failure with recent pericardial window due to recurrent pericardial effusions Refractory ascites due to cirrhosis with frequent paracentesis Diabetes mellitus Non-ST elevation [place] Events: Patient seen and examined at bedside. On 5 liters per minute nasal cannula with humidifier Taper O2 as tolerated Note, patient is refusing medications Remains on pressors for hemodynamic support On Levophed at 20 mcg/min Titrate to keep mean arterial pressure greater than 65 mmHg. Increased pressor requirements Midodrine for blood pressure support. S/p midline placement Head of bed elevation Aspiration precautions Hemodialysis per Nephrology - Hemodialysis this PM Nephrology recs appreciated Monitor renal function Follow up ultrasound venous Doppler of BLE Continue antibiotics WBC trended down, 33.1 K --> 23.2 k Incentive spirometry Amiodarone PO Nystatin for thrush Monitor hemoglobin - stable at 7.3 g/dL Transfuse to keep greater than or equal to 7 g/dL Iron supplementation Accu-Cheks, ISS Pain control Avoid oversedation TPN for nutritional support Protonix for GI prophylaxis Recommend LTAC. Poor prognosis due to multiple comorbidities. Family discussion with [employer] [employer] - family declined hospice. S/p paracentesis on 01/13/25- 3.3 liters of ascitic fluid removed Received albumin post paracentesis - See separate procedure note for details. S/p paracentesis on 01/10/25 Labs and imaging reviewed. Rest of plan as noted below. Plan: Supplemental oxygen Titrate to keep O2 sats above 92%. Head of bed elevation Aspiration precautions Off steroids Pressors as necessary for hemodynamic support Titrate to keep mean arterial pressure greater than 65 mmHg. Accu-Cheks, ISS Hemodialysis per Nephrology Nephrology recommendations appreciated. Monitor renal function. Monitor electrolytes. Supplement as necessary. Monitor ins and outs. GI prophylaxis - Protonix DVT prophylaxis. Prognosis: Poor given patient's multiple co-morbidities. Condition: Critical Rest of plan per hospitalist and other consultants. A total of 35 minutes of critical care time was spent reviewing the patient record, examining the patient, making a diagnostic and therapeutic plan, discussing this plan with the medical personnel, following up on diagnostic studies and following the patient for clinical stability excluding any and all procedures. At least 50% of this time was spent in direct, [id number] contact. Thank you, ELLIE Moreland, for allowing me to participate in this patient's care. Further recommendations will depend on the patient's clinical course. Please do not hesitate to contact me if you have any questions or concerns. This medical document was created using an electronic medical record system with Dragon computerized dictation system. Although these documentations are being carefully reviewed, there may still be some phonetic and typographical changes. The errors are purely typographical, due to imperfection on the software program, and do not reflect any compromise in the patient's medical care. Dietary Evaluation Review Comments: 1) Nepro carb steady 240ml BID (ordered per [facility] protocol) 2) Neprhro-Kaela 1 tab daily 3) Continue current plan of care Expected Outcomes/Goals: To meet >75% estimated needs Fu 3-5 days Plan discussed with: Other (LAVERNE Garcia) Critical Care Time(min): 35 MAYE HEATH MD February 09, 2025 19:37
[2025-02-09] MEDS: TPN PER PHARMACY IV NR (21:43)
--- NOTE | 2025-02-09 22:26 | DVHPN2 ---
Progress Note - Dictate Date Seen: February 09, 2025 Medical Necessity Reason Pt with a Central, PICC or Fol: Yes The following are medically ne: Central Line Subjective Patient was seen and evaluated in follow up in the ICU. Patient is lethargic and confused. Patient's O2 was decreased to 1 LPM NC. WBC 23.2, HGB 7.3, HCT 22.7, NA 124, K 2.9, BUN 66, [facility] 3.36, GLUC 232. CM is working on placement. vital signs Vital Sign Date Time Temp Pulse Resp B/P (MAP) Pulse Ox O2 Delivery O2 Flow Rate FiO2 02/09/25 12:00 93 02/09/25 12:00 13 89 Nasal Cannula* 1 24 02/09/25 06:45 137/81 (99) 02/09/25 04:00 97.2 97.2 Total Intake and Output 02/08/25 02/08/25 02/09/25 15:00 23:00 07:00 Intake Total 740.872 ml 698.369 ml 817.670 ml Output Total 0 ml Balance 740.872 ml 698.369 ml 817.670 ml medications Current Medications Medications Dose Ordered Sig/Honey Route Start Time Stop Time Status Last Admin Dose Admin Diagnostic Test (Pha) 1 strip Q6HR 01/09/25 06:00 02/09/25 11:51 1 STRIP Dextrose 50 ml UD PRN IV 01/09/25 00:30 01/18/25 10:40 50 ML Pantoprazole Sodium 40 mg DAILY IV 01/10/25 10:00 02/09/25 10:25 40 MG Ondansetron HCl 4 mg Q8HPRN PRN IV 01/09/25 10:30 01/30/25 20:04 4 MG Acetaminophen 650 mg Q6HP PRN PO 01/09/25 10:30 02/07/25 23:43 650 MG Ferrous Sulfate 325 mg BIDWM PO 01/10/25 18:00 02/08/25 10:25 325 MG Sevelamer HCl 800 mg TIDWM PO 01/10/25 18:00 02/08/25 10:25 800 MG Gabapentin 100 mg TID PO 01/11/25 14:00 02/09/25 05:46 100 MG Emollient Ointment 1 applic PRN PRN TOP 01/14/25 10:30 02/02/25 04:36 1 APPLIC Albumin Human 100 ml @ 100 mls/hr PRN PRN IV 01/15/25 10:30 02/06/25 10:08 100 MLS/HR Multivit/Ca Carb/ B Cmplx/FA/Prenat 1 tab DAILY PO 01/16/25 10:00 02/08/25 10:25 1 TAB Phenylephrine HCl 80 mg/Sodium Chloride 250 ml @ 7.5 mls/hr Q24H IV 01/19/25 12:00 Polyethylene Glycol 17 gm DAILYPRN PRN PO 01/21/25 12:15 01/25/25 09:59 17 GM Sennosides 8.6 mg QHSP PRN PO 01/21/25 12:15 01/24/25 23:56 8.6 MG Norepinephrine Bitartrate 32 mg/ Sodium Chloride 250 ml @ 0.938 mls/ hr Q24H IV 01/21/25 12:15 02/08/25 22:42 7.734 MLS/HR Midodrine 10 mg TID@0600,1200,1800 PO 01/24/25 06:00 02/07/25 05:58 10 MG Morphine Sulfate 2 mg Q2HPRN PRN IV 01/28/25 15:30 02/08/25 04:40 2 MG Nystatin 5 ml QID MT 01/29/25 12:00 02/09/25 05:46 5 ML Amiodarone HCl 200 mg Q12HR PO 02/01/25 10:00 02/08/25 10:25 200 MG Lactulose 30 ml DAILY PO 02/03/25 10:00 02/08/25 10:25 30 ML Hydromorphone HCl 0.5 mg Q2HPRN PRN IV 02/03/25 16:15 02/07/25 03:17 0.5 MG Glycopyrrolate 0.4 mg Q4HP PRN IV 02/03/25 16:15 Lorazepam 0.5 mg Q4HP PRN IV 02/03/25 16:15 Phenol/Menthol 1 spr Q4HP PRN MT 02/05/25 13:45 02/05/25 17:27 1 SPR Linezolid 300 ml @ 150 mls/hr Q12HR IV 02/06/25 10:00 02/09/25 10:25 150 MLS/HR Amino Acids 0 ml @ 0 mls/hr PER PHARMACY IV 02/06/25 11:00 Meropenem 50 ml @ 17 mls/hr Q12H IV 02/07/25 10:00 02/09/25 10:25 17 MLS/HR Fat Emulsion Intravenous 150 ml/Sodium Chloride 80 meq/ Potassium Phosphate 20 meq/ Magnesium Sulfate 4 meq/ Multivitamins 10 ml/Insulin Human Regular 6 units/ Amino Acids/ Dextrose 1,135.6055 ml @ 47 mls/hr [id number] IV 02/08/25 22:00 02/09/25 21:59 02/08/25 22:24 47 MLS/HR Insulin Human Regular FOLLOW SLIDING SCALE Q6HR SC 02/08/25 18:00 02/09/25 11:54 8 UNITS Fat Emulsion Intravenous 200 ml/Sodium Chloride 80 meq/ Sodium Acetate 20 meq/Potassium Chloride 60 meq/ Magnesium Sulfate 6 meq/ Multivitamins 10 ml/Insulin Human Regular 16 units/ Amino Acids/ Dextrose 1,271.66 ml @ 53 mls/hr Q24H IV 02/09/25 22:00 02/10/25 21:59 Potassium Chloride 100 ml @ 50 mls/hr Q2H IV 02/09/25 10:45 02/09/25 14:44 02/09/25 12:51 50 MLS/HR objective GENERAL: Alert and oriented x 2. No acute distress. EYES: PERRL, EOMI. Anicteric. HENT: Moist mucous membranes. LUNGS: Clear to auscultation bilaterally. CARDIOVASCULAR: Regular rate and rhythm. Systolic murmur. ABDOMEN: Ascites, large distended abdomen. EXTREMITIES: No edema. NEUROLOGIC: No focal neurological deficits. SKIN: Mottling to bilateral lower extremities. Bilateral feet cool to touch. laboratory and microbiology Laboratory Tests 02/09/25 04:30 Test 02/09/25 04:30 Range/Units Serum Glucose 378 H 74-106 mg/dL Problem List Atrial tachycardia, now in junctional rhythm. NSTEMI, likely type II. Chronic HFpEF with right-sided heart failure, NYHA class III. History of atrial fibrillation (on amiodarone and Eliquis). Chronic pericardial effusion. History of hypertension. Hyperlipidemia. Decompensated liver cirrhosis with refractory ascites. Ascites. Type 2 diabetes mellitus. End-stage renal disease on hemodialysis. Acute hepatic/metabolic/toxic encephalopathy. Acute hypoxic respiratory failure. Septic shock due to Enterococcus faecium. Blindness. Hearing loss. Assessment/Plan Continued all current supportive medical care. Amiodarone. Dilaudid and Morphine for pain management. GI prophylactics. IV antibiotics as ordered. Vasopressors for hemodynamic support. Additional plan as per the hospital course. Critical care time of 45 minutes provided to include time spent evaluation of patient at bedside, when appropriate patient/family education for diagnosis, treatment plan, review of pertinent medical information and discussion of care with specialty providers and PCP. Dietary Evaluation Review Comments: 1) Nepro carb steady 240ml BID (ordered per [facility] protocol) 2) Neprhro-Kaela 1 tab daily 3) Continue current plan of care Expected Outcomes/Goals: To meet >75% estimated needs Fu 3-5 days Plan discussed with: Other SOREN MARTINEZ MD February 09, 2025 13:06
[2025-02-10] VITALS (92 sets, daily range): BP systolic 62–126; BP diastolic 17–54; PULSE 67–101; RESP 11–26; TEMP 97.8–101.4; O2SAT 62–100
[2025-02-10 05:36] LABS: Alanine Aminotransferase 11 U/L (7-40); Alkaline Phosphatase 223 U/L (46-116); Anion Gap 12 (5-15); Aspartate Aminotransferase 17 U/L (13-40); BUN/Creatinine Ratio 22.6 (10.0-20.0); Blood Urea Nitrogen 62 mg/dL (9-23); Calcium 9.4 mg/dL (8.7-10.4); Carbon Dioxide 25 mmol/L (20-31); Chloride 97 mmol/L (98-107); Glucose 233 mg/dL (74-106); Magnesium 2.1 mg/dL (1.6-2.6); Potassium 4.5 mmol/L (3.5-5.1); Sodium 134 mmol/L (136-145); Total Protein 5.9 g/dL (5.7-8.2)
[2025-02-10 05:37] LABS: Phosphorus 3.2 mg/dL (2.4-5.1)
[2025-02-10 05:38] LABS: Bilirubin, Total 3.1 mg/dL (0.2-1.0)
--- NOTE | 2025-02-10 11:26 | DVHPN2 ---
Reviewed: Care Plan, H&P, Labs, Medications, Previous Orders, Radiology, Other (Consultations) Changes from previous H/P or p: No Changes General: Per HPI Objective Vitals Vital Signs Date Time Temp Pulse Resp B/P (MAP) Pulse Ox O2 Delivery O2 Flow Rate FiO2 02/10/25 10:00 91 02/10/25 10:00 18 92 Nasal Cannula* 2 28 02/10/25 09:30 119/47 (71) 02/10/25 08:00 97.8 97.8 Intake/Output Intake and Output 02/10/25 07:00 Intake Total 2180.548 ml Output Total 0 ml Balance 2180.548 ml Intake Oral 10 ml IV Total 2170.548 ml Output Urine Total 0 ml General Appearance: Alert, moderate distress, Other (Encephalopathic) HEENT: Atraumatic, Other (Blind) Lungs: Other (Decreased air entry bilateral) Cardiovascular: Normal S1, Normal S2, Other (Tracking failure) Abdomen: Normal bowel sounds, Soft, No tenderness, Other (Resolved ascites after paracentesis of almost 4 liters) Musculoskeletal: Weak motor strength RUE, Weak motor strength LUE, Weak motor strength RLE, Weak motor strength LLE Extremities: Other (Left upper extremity AV fistula with good bruit and thrill; dusky extremities) Neuro: Normal speech, Cranial nerves 3-12 NL, Other (Reviewed) Skin: Dry, Intact Psych/Mental Status: Mental status NL, Mood NL Medications Current Medications Medications Dose Ordered Sig/Honey Route Start Time Stop Time Status Last Admin Dose Admin Diagnostic Test (Pha) 1 strip Q6HR 01/09/25 06:00 02/10/25 05:35 1 STRIP Dextrose 50 ml UD PRN IV 01/09/25 00:30 01/18/25 10:40 50 ML Pantoprazole Sodium 40 mg DAILY IV 01/10/25 10:00 02/09/25 10:25 40 MG Ondansetron HCl 4 mg Q8HPRN PRN IV 01/09/25 10:30 01/30/25 20:04 4 MG Acetaminophen 650 mg Q6HP PRN PO 01/09/25 10:30 02/07/25 23:43 650 MG Ferrous Sulfate 325 mg BIDWM PO 01/10/25 18:00 02/08/25 10:25 325 MG Sevelamer HCl 800 mg TIDWM PO 01/10/25 18:00 02/08/25 10:25 800 MG Gabapentin 100 mg TID PO 01/11/25 14:00 02/09/25 05:46 100 MG Emollient Ointment 1 applic PRN PRN TOP 01/14/25 10:30 02/02/25 04:36 1 APPLIC Albumin Human 100 ml @ 100 mls/hr PRN PRN IV 01/15/25 10:30 02/09/25 16:21 100 MLS/HR Multivit/Ca Carb/ B Cmplx/FA/Prenat 1 tab DAILY PO 01/16/25 10:00 02/08/25 10:25 1 TAB Phenylephrine HCl 80 mg/Sodium Chloride 250 ml @ 7.5 mls/hr Q24H IV 01/19/25 12:00 Polyethylene Glycol 17 gm DAILYPRN PRN PO 01/21/25 12:15 01/25/25 09:59 17 GM Sennosides 8.6 mg QHSP PRN PO 01/21/25 12:15 01/24/25 23:56 8.6 MG Norepinephrine Bitartrate 32 mg/ Sodium Chloride 250 ml @ 0.938 mls/ hr Q24H IV 01/21/25 12:15 02/10/25 04:27 10.313 MLS/HR Midodrine 10 mg TID@0600,1200,1800 PO 01/24/25 06:00 02/07/25 05:58 10 MG Morphine Sulfate 2 mg Q2HPRN PRN IV 01/28/25 15:30 02/10/25 04:52 2 MG Nystatin 5 ml QID MT 01/29/25 12:00 02/09/25 05:46 5 ML Amiodarone HCl 200 mg Q12HR PO 02/01/25 10:00 02/08/25 10:25 200 MG Lactulose 30 ml DAILY PO 02/03/25 10:00 02/08/25 10:25 30 ML Hydromorphone HCl 0.5 mg Q2HPRN PRN IV 02/03/25 16:15 02/07/25 03:17 0.5 MG Glycopyrrolate 0.4 mg Q4HP PRN IV 02/03/25 16:15 Lorazepam 0.5 mg Q4HP PRN IV 02/03/25 16:15 Phenol/Menthol 1 spr Q4HP PRN MT 02/05/25 13:45 02/05/25 17:27 1 SPR Linezolid 300 ml @ 150 mls/hr Q12HR IV 02/06/25 10:00 02/09/25 21:40 150 MLS/HR Amino Acids 0 ml @ 0 mls/hr PER PHARMACY IV 02/06/25 11:00 Meropenem 50 ml @ 17 mls/hr Q12H IV 02/07/25 10:00 02/09/25 21:40 17 MLS/HR Fat Emulsion Intravenous 200 ml/Sodium Chloride 80 meq/ Sodium Acetate 20 meq/Potassium Chloride 60 meq/ Magnesium Sulfate 6 meq/ Multivitamins 10 ml/Insulin Human Regular 16 units/ Amino Acids/ Dextrose 1,271.66 ml @ 53 mls/hr Q24H IV 02/09/25 22:00 02/10/25 21:59 02/09/25 21:43 53 MLS/HR Diagnostic Test (Pha) 1 strip Q6HR 02/09/25 18:00 02/10/25 05:35 1 STRIP Insulin Human Regular Q6HR SC 02/09/25 18:00 02/10/25 05:36 4 UNITS Dextrose 50 ml UD PRN IV 02/09/25 13:45 Laboratory Results Laboratory Tests 02/09/25 04:30 02/10/25 04:42 Chemistry Test 02/10/25 04:42 Albumin 4.0 g/dL (3.2-4.8) Calcium Level 9.4 mg/dL (8.7-10.4) Magnesium Level 2.1 mg/dL (1.6-2.6) Phosphorus Level 3.2 mg/dL (2.4-5.1) Total Protein 5.9 g/dL (5.7-8.2) LFT Test 02/10/25 04:42 Alanine Aminotransferase (ALT) 11 U/L (7-40) Alkaline Phosphatase 223 U/L (46-116) H Aspartate Amino Transferase (AST) 17 U/L (13-40) Total Bilirubin 3.1 mg/dL (0.2-1.0) H Microbiology Microbiology Date/Time Source Procedure Growth Status 02/06/25 08:57 Blood Blood Culture - Final Klebsiella pneumoniae Complete 01/10/25 12:45 Ascities Fluid Gram Stain - Final Complete 01/10/25 12:45 Ascities Fluid Body Fluid Culture - Final Complete 01/09/25 14:00 Sputum Gram Stain - Final Complete 01/09/25 14:00 Respiratory Culture - Final Presumptive Lisa albicans Complete 01/09/25 05:00 Nose MRSA Screen - Final Complete Labs and/or images reviewed: Labs reviewed by me, Image(s) reviewed by me Assessment/Plan Assessment/Plan Covering for Dr. Moreland -septic shock with VRE in the blood continue meropenem and zyvox -cirrhosis with severe ascites -ESRD with hemodialysis -NSTEMI, probably type secondary to recent pericardiocentesis -legally blind -anemia of chronic disease - dyslipidemia -paroxysmal atrial fibrillation -possible infiltration of norepinephrine to right upper extremity with extravasation. Seen in the [facility] Time spent 55 minutes Continue current management Plan discussed with: Patient My Orders Orders - ABDOULAYE CAMERON MD Procedure Category Date Status Time Glucose Blood PHA 02/09/25 In Process (Accu-Chek Comfort 18:00 Insulin R (Human) PHA 02/09/25 In Process (Insulin R) 18:00 Dextrose 50% Syringe PHA 02/09/25 In Process 13:45 Date of Service: February 10, 2025 Billing Provider: ABDOULAYE CAMERON MD Common Visit Codes: [id number] INP/OBS CARE(HIGH) ABDOULAYE CAMERON MD February 10, 2025 11:25
--- NOTE | 2025-02-10 13:54 | DVHPN2 ---
Progress Note Date Seen: February 10, 2025 Medical Necessity Reason Pt with a Central, PICC or Fol: Yes The following are medically ne: Central Line Subjective Patient reports: No new complaints Objective vital signs Vital Sign Date Time Temp Pulse Resp B/P (MAP) Pulse Ox O2 Delivery O2 Flow Rate FiO2 02/10/25 13:15 92 21 113/45 (67) 92 02/10/25 12:00 Nasal Cannula* 2 28 02/10/25 12:00 98.4 98.4 Total Intake and Output 02/09/25 02/09/25 02/10/25 15:00 23:00 07:00 Intake Total 633.345 ml 1020.420 ml 526.783 ml Output Total 0 ml Balance 633.345 ml 1020.420 ml 526.783 ml medications Current Medications Medications Dose Ordered Sig/Honey Route Start Time Stop Time Status Last Admin Dose Admin Pantoprazole Sodium 40 mg DAILY IV 01/10/25 10:00 02/10/25 11:50 40 MG Ondansetron HCl 4 mg Q8HPRN PRN IV 01/09/25 10:30 01/30/25 20:04 4 MG Acetaminophen 650 mg Q6HP PRN PO 01/09/25 10:30 02/07/25 23:43 650 MG Ferrous Sulfate 325 mg BIDWM PO 01/10/25 18:00 02/08/25 10:25 325 MG Sevelamer HCl 800 mg TIDWM PO 01/10/25 18:00 02/08/25 10:25 800 MG Gabapentin 100 mg TID PO 01/11/25 14:00 02/09/25 05:46 100 MG Emollient Ointment 1 applic PRN PRN TOP 01/14/25 10:30 02/02/25 04:36 1 APPLIC Albumin Human 100 ml @ 100 mls/hr PRN PRN IV 01/15/25 10:30 02/09/25 16:21 100 MLS/HR Multivit/Ca Carb/ B Cmplx/FA/Prenat 1 tab DAILY PO 01/16/25 10:00 02/08/25 10:25 1 TAB Phenylephrine HCl 80 mg/Sodium Chloride 250 ml @ 7.5 mls/hr Q24H IV 01/19/25 12:00 Polyethylene Glycol 17 gm DAILYPRN PRN PO 01/21/25 12:15 01/25/25 09:59 17 GM Sennosides 8.6 mg QHSP PRN PO 01/21/25 12:15 01/24/25 23:56 8.6 MG Norepinephrine Bitartrate 32 mg/ Sodium Chloride 250 ml @ 0.938 mls/ hr Q24H IV 01/21/25 12:15 02/10/25 04:27 10.313 MLS/HR Midodrine 10 mg TID@0600,1200,1800 PO 01/24/25 06:00 02/07/25 05:58 10 MG Morphine Sulfate 2 mg Q2HPRN PRN IV 01/28/25 15:30 02/10/25 04:52 2 MG Nystatin 5 ml QID MT 01/29/25 12:00 02/09/25 05:46 5 ML Amiodarone HCl 200 mg Q12HR PO 02/01/25 10:00 02/08/25 10:25 200 MG Lactulose 30 ml DAILY PO 02/03/25 10:00 02/08/25 10:25 30 ML Hydromorphone HCl 0.5 mg Q2HPRN PRN IV 02/03/25 16:15 02/07/25 03:17 0.5 MG Glycopyrrolate 0.4 mg Q4HP PRN IV 02/03/25 16:15 Lorazepam 0.5 mg Q4HP PRN IV 02/03/25 16:15 Phenol/Menthol 1 spr Q4HP PRN MT 02/05/25 13:45 02/05/25 17:27 1 SPR Linezolid 300 ml @ 150 mls/hr Q12HR IV 02/06/25 10:00 02/10/25 11:50 150 MLS/HR Amino Acids 0 ml @ 0 mls/hr PER PHARMACY IV 02/06/25 11:00 Meropenem 50 ml @ 17 mls/hr Q12H IV 02/07/25 10:00 02/10/25 12:27 17 MLS/HR Fat Emulsion Intravenous 200 ml/Sodium Chloride 80 meq/ Sodium Acetate 20 meq/Potassium Chloride 60 meq/ Magnesium Sulfate 6 meq/ Multivitamins 10 ml/Insulin Human Regular 16 units/ Amino Acids/ Dextrose 1,271.66 ml @ 53 mls/hr Q24H IV 02/09/25 22:00 02/10/25 21:59 02/09/25 21:43 53 MLS/HR Diagnostic Test (Pha) 1 strip Q6HR 02/09/25 18:00 02/10/25 12:29 1 STRIP Insulin Human Regular Q6HR SC 02/09/25 18:00 02/10/25 12:29 8 UNITS Dextrose 50 ml UD PRN IV 02/09/25 13:45 Fat Emulsion Intravenous 200 ml/Sodium Chloride 100 meq/ Sodium Acetate 20 meq/Potassium Chloride 40 meq/ Magnesium Sulfate 4 meq/ Multivitamins 10 ml/Insulin Human Regular 20 units/ Amino Acids/ Dextrose 1,366.2 ml @ 57 mls/hr [id number] IV 02/10/25 22:00 02/11/25 21:59 laboratory and microbiology Laboratory Tests 02/10/25 04:42 02/09/25 04:30 Test 02/10/25 04:42 Range/Units Serum Glucose 233 H 74-106 mg/dL Microbiology Date/Time Source Procedure Growth Status 02/06/25 08:57 Blood Blood Culture - Final Klebsiella pneumoniae Complete 01/10/25 12:45 Ascities Fluid Gram Stain - Final Complete 01/10/25 12:45 Ascities Fluid Body Fluid Culture - Final Complete 01/09/25 14:00 Sputum Gram Stain - Final Complete 01/09/25 14:00 Respiratory Culture - Final Presumptive Lisa albicans Complete 01/09/25 05:00 Nose MRSA Screen - Final Complete Problem List/Assessment/Plan Problem List/Assessment/Plan End-stage renal disease on hemodialysis Heart failure with recent pericardial drainage due to recurrent pericardial effusions decompensated cirrhosis Diabetes Shock septic hyperkalemia VRE bacteremia recs HD 02/09 next HD Tuesday on abx on levo poor prognosis blood cx + Klebsiella Dialysis dosing of antibiotics Plan discussed with: Patient Dietary Evaluation Review Comments: 1) Nepro carb steady 240ml BID (ordered per [facility] protocol) 2) Neprhro-Kaela 1 tab daily 3) Continue current plan of care Expected Outcomes/Goals: To meet >75% estimated needs Fu 3-5 days LARISA MCKEON MD February 10, 2025 13:54
--- NOTE | 2025-02-10 19:44 | DVHPN2 ---
Progress Note - Dictate Date Seen: February 10, 2025 Medical Necessity Reason Pt with a Central, PICC or Fol: Yes The following are medically ne: Central Line Subjective Patient was seen and evaluated in follow up in the ICU. Patient is lethargic. She is on 2 LPM NC. BUN 62, WOOD BAR[employer] RECONDITIONER 2.74, GLUC 240. BLE Venous Duplex is negative for DVT. The common femoral vein greater saphenous vein and proximal superficial femoral vein are not visible. vital signs Vital Sign Date Time Temp Pulse Resp B/P (MAP) Pulse Ox O2 Delivery O2 Flow Rate FiO2 02/10/25 13:15 92 21 113/45 (67) 92 02/10/25 12:00 Nasal Cannula* 2 28 02/10/25 12:00 98.4 98.4 Total Intake and Output 02/09/25 02/09/25 02/10/25 15:00 23:00 07:00 Intake Total 633.345 ml 1020.420 ml 526.783 ml Output Total 0 ml Balance 633.345 ml 1020.420 ml 526.783 ml medications Current Medications Medications Dose Ordered Sig/Honey Route Start Time Stop Time Status Last Admin Dose Admin Pantoprazole Sodium 40 mg DAILY IV 01/10/25 10:00 02/10/25 11:50 40 MG Ondansetron HCl 4 mg Q8HPRN PRN IV 01/09/25 10:30 01/30/25 20:04 4 MG Acetaminophen 650 mg Q6HP PRN PO 01/09/25 10:30 02/07/25 23:43 650 MG Ferrous Sulfate 325 mg BIDWM PO 01/10/25 18:00 02/08/25 10:25 325 MG Sevelamer HCl 800 mg TIDWM PO 01/10/25 18:00 02/08/25 10:25 800 MG Gabapentin 100 mg TID PO 01/11/25 14:00 02/09/25 05:46 100 MG Emollient Ointment 1 applic PRN PRN TOP 01/14/25 10:30 02/02/25 04:36 1 APPLIC Albumin Human 100 ml @ 100 mls/hr PRN PRN IV 01/15/25 10:30 02/09/25 16:21 100 MLS/HR Multivit/Ca Carb/ B Cmplx/FA/Prenat 1 tab DAILY PO 01/16/25 10:00 02/08/25 10:25 1 TAB Phenylephrine HCl 80 mg/Sodium Chloride 250 ml @ 7.5 mls/hr Q24H IV 01/19/25 12:00 Polyethylene Glycol 17 gm DAILYPRN PRN PO 01/21/25 12:15 01/25/25 09:59 17 GM Sennosides 8.6 mg QHSP PRN PO 01/21/25 12:15 01/24/25 23:56 8.6 MG Norepinephrine Bitartrate 32 mg/ Sodium Chloride 250 ml @ 0.938 mls/ hr Q24H IV 01/21/25 12:15 02/10/25 04:27 10.313 MLS/HR Midodrine 10 mg TID@0600,1200,1800 PO 01/24/25 06:00 02/07/25 05:58 10 MG Morphine Sulfate 2 mg Q2HPRN PRN IV 01/28/25 15:30 02/10/25 04:52 2 MG Nystatin 5 ml QID MT 01/29/25 12:00 02/09/25 05:46 5 ML Amiodarone HCl 200 mg Q12HR PO 02/01/25 10:00 02/08/25 10:25 200 MG Lactulose 30 ml DAILY PO 02/03/25 10:00 02/08/25 10:25 30 ML Hydromorphone HCl 0.5 mg Q2HPRN PRN IV 02/03/25 16:15 02/07/25 03:17 0.5 MG Glycopyrrolate 0.4 mg Q4HP PRN IV 02/03/25 16:15 Lorazepam 0.5 mg Q4HP PRN IV 02/03/25 16:15 Phenol/Menthol 1 spr Q4HP PRN MT 02/05/25 13:45 02/05/25 17:27 1 SPR Linezolid 300 ml @ 150 mls/hr Q12HR IV 02/06/25 10:00 02/10/25 11:50 150 MLS/HR Amino Acids 0 ml @ 0 mls/hr PER PHARMACY IV 02/06/25 11:00 Meropenem 50 ml @ 17 mls/hr Q12H IV 02/07/25 10:00 02/10/25 12:27 17 MLS/HR Fat Emulsion Intravenous 200 ml/Sodium Chloride 80 meq/ Sodium Acetate 20 meq/Potassium Chloride 60 meq/ Magnesium Sulfate 6 meq/ Multivitamins 10 ml/Insulin Human Regular 16 units/ Amino Acids/ Dextrose 1,271.66 ml @ 53 mls/hr Q24H IV 02/09/25 22:00 02/10/25 21:59 02/09/25 21:43 53 MLS/HR Diagnostic Test (Pha) 1 strip Q6HR 02/09/25 18:00 02/10/25 12:29 1 STRIP Insulin Human Regular Q6HR SC 02/09/25 18:00 02/10/25 12:29 8 UNITS Dextrose 50 ml UD PRN IV 02/09/25 13:45 Fat Emulsion Intravenous 200 ml/Sodium Chloride 100 meq/ Sodium Acetate 20 meq/Potassium Chloride 40 meq/ Magnesium Sulfate 4 meq/ Multivitamins 10 ml/Insulin Human Regular 20 units/ Amino Acids/ Dextrose 1,366.2 ml @ 57 mls/hr [id number] IV 02/10/25 22:00 02/11/25 21:59 objective GENERAL: Alert and oriented x 2. No acute distress. EYES: PERRL, EOMI. Anicteric. HENT: Moist mucous membranes. LUNGS: Clear to auscultation bilaterally. CARDIOVASCULAR: Regular rate and rhythm. Systolic murmur. ABDOMEN: Ascites, large distended abdomen. EXTREMITIES: No edema. NEUROLOGIC: No focal neurological deficits. SKIN: Mottling to bilateral lower extremities. Bilateral feet cool to touch. laboratory and microbiology Laboratory Tests 02/10/25 04:42 02/09/25 04:30 Test 02/10/25 04:42 Range/Units Serum Glucose 233 H 74-106 mg/dL Problem List Atrial tachycardia, now in junctional rhythm. NSTEMI, likely type II. Chronic HFpEF with right-sided heart failure, NYHA class III. History of atrial fibrillation (on amiodarone and Eliquis). Chronic pericardial effusion. History of hypertension. Hyperlipidemia. Decompensated liver cirrhosis with refractory ascites. Ascites. Type 2 diabetes mellitus. End-stage renal disease on hemodialysis. Acute hepatic/metabolic/toxic encephalopathy. Acute hypoxic respiratory failure. Septic shock due to Enterococcus faecium. Blindness. Hearing loss. Assessment/Plan Continued all current supportive medical care. Amiodarone. Dilaudid and Morphine for pain management. GI prophylactics. IV antibiotics as ordered. Vasopressors for hemodynamic support. Additional plan as per the hospital course. Critical care time of 45 minutes provided to include time spent evaluation of patient at bedside, when appropriate patient/family education for diagnosis, treatment plan, review of pertinent medical information and discussion of care with specialty providers and PCP. Dietary Evaluation Review Comments: 1) Nepro carb steady 240ml BID (ordered per ONS protocol) 2) Neprhro-Kaela 1 tab daily 3) Continue current plan of care Expected Outcomes/Goals: To meet >75% estimated needs Fu 3-5 days Plan discussed with: Other SOREN MARTINEZ MD February 10, 2025 13:33
[2025-02-10] MEDS: TPN PER PHARMACY IV NR (21:58)
--- NOTE | 2025-02-10 22:55 | DVHPN2 ---
Progress Note - Dictate Date Seen: February 10, 2025 Medical Necessity Reason Pt with a Central, PICC or Fol: Yes The following are medically ne: Central Line Subjective Patient seen and examined at bedside. Remains on supplemental oxygen Overnight events reviewed. vital signs Vital Sign Date Time Temp Pulse Resp B/P (MAP) Pulse Ox O2 Delivery O2 Flow Rate FiO2 02/10/25 21:30 93 16 105/44 (64) 02/10/25 21:00 98.3 98.3 02/10/25 20:45 88 02/10/25 18:00 Nasal Cannula* 2 28 Total Intake and Output 02/09/25 02/09/25 02/10/25 15:00 23:00 07:00 Intake Total 633.345 ml 1020.420 ml 526.783 ml Output Total 0 ml Balance 633.345 ml 1020.420 ml 526.783 ml medications Current Medications Medications Dose Ordered Sig/Honey Route Start Time Stop Time Status Last Admin Dose Admin Pantoprazole Sodium 40 mg DAILY IV 01/10/25 10:00 02/10/25 11:50 40 MG Ondansetron HCl 4 mg Q8HPRN PRN IV 01/09/25 10:30 01/30/25 20:04 4 MG Acetaminophen 650 mg Q6HP PRN PO 01/09/25 10:30 02/07/25 23:43 650 MG Ferrous Sulfate 325 mg BIDWM PO 01/10/25 18:00 02/08/25 10:25 325 MG Sevelamer HCl 800 mg TIDWM PO 01/10/25 18:00 02/08/25 10:25 800 MG Gabapentin 100 mg TID PO 01/11/25 14:00 02/09/25 05:46 100 MG Emollient Ointment 1 applic PRN PRN TOP 01/14/25 10:30 02/02/25 04:36 1 APPLIC Albumin Human 100 ml @ 100 mls/hr PRN PRN IV 01/15/25 10:30 02/09/25 16:21 100 MLS/HR Multivit/Ca Carb/ B Cmplx/FA/Prenat 1 tab DAILY PO 01/16/25 10:00 02/08/25 10:25 1 TAB Phenylephrine HCl 80 mg/Sodium Chloride 250 ml @ 7.5 mls/hr Q24H IV 01/19/25 12:00 Polyethylene Glycol 17 gm DAILYPRN PRN PO 01/21/25 12:15 01/25/25 09:59 17 GM Sennosides 8.6 mg QHSP PRN PO 01/21/25 12:15 01/24/25 23:56 8.6 MG Norepinephrine Bitartrate 32 mg/ Sodium Chloride 250 ml @ 0.938 mls/ hr Q24H IV 01/21/25 12:15 02/10/25 04:27 10.313 MLS/HR Midodrine 10 mg TID@0600,1200,1800 PO 01/24/25 06:00 02/07/25 05:58 10 MG Morphine Sulfate 2 mg Q2HPRN PRN IV 01/28/25 15:30 02/10/25 04:52 2 MG Nystatin 5 ml QID MT 01/29/25 12:00 02/09/25 05:46 5 ML Amiodarone HCl 200 mg Q12HR PO 02/01/25 10:00 02/08/25 10:25 200 MG Lactulose 30 ml DAILY PO 02/03/25 10:00 02/08/25 10:25 30 ML Hydromorphone HCl 0.5 mg Q2HPRN PRN IV 02/03/25 16:15 02/07/25 03:17 0.5 MG Glycopyrrolate 0.4 mg Q4HP PRN IV 02/03/25 16:15 Lorazepam 0.5 mg Q4HP PRN IV 02/03/25 16:15 Phenol/Menthol 1 spr Q4HP PRN MT 02/05/25 13:45 02/05/25 17:27 1 SPR Linezolid 300 ml @ 150 mls/hr Q12HR IV 02/06/25 10:00 02/10/25 21:47 150 MLS/HR Amino Acids 0 ml @ 0 mls/hr PER PHARMACY IV 02/06/25 11:00 Meropenem 50 ml @ 17 mls/hr Q12H IV 02/07/25 10:00 02/10/25 21:48 17 MLS/HR Diagnostic Test (Pha) 1 strip Q6HR 02/09/25 18:00 02/10/25 18:01 1 STRIP Insulin Human Regular Q6HR SC 02/09/25 18:00 02/10/25 18:18 12 UNITS Dextrose 50 ml UD PRN IV 02/09/25 13:45 Fat Emulsion Intravenous 200 ml/Sodium Chloride 100 meq/ Sodium Acetate 20 meq/Potassium Chloride 40 meq/ Magnesium Sulfate 4 meq/ Multivitamins 10 ml/Insulin Human Regular 20 units/ Amino Acids/ Dextrose 1,366.2 ml @ 57 mls/hr [id number] IV 02/10/25 22:00 02/11/25 21:59 02/10/25 21:58 57 MLS/HR objective Gen.: Patient lying in bed in no apparent distress. On supplemental oxygen. Head: Normocephalic, atraumatic. Eyes: EOMI/PERRLA. Ears: Normal hearing. Normal anatomy. Neck/trachea: Trachea midline, supple. Nose: Normal external anatomy. Mouth: Moist mucous membranes. Chest: Decreased air entry bilaterally. No wheezing or rhonchi. Cardiovascular: Positive S1, positive S2. Regular rate and rhythm. Abdomen: Positive bowel sounds in all 4 quadrants. Soft, non-tender, non- distended. : Deferred. Rectal: Deferred. Skin: Warm, dry. Intact. Extremities: 2+ radial pulses bilaterally. No lower extremity edema. Neuro: Awake, alert, oriented x3. No gross motor or sensory deficits. Cranial nerves II through XII intact. Gait not assessed. laboratory and microbiology Laboratory Tests 02/10/25 04:42 02/09/25 04:30 Test 02/10/25 04:42 Range/Units Serum Glucose 233 H 74-106 mg/dL Assessment/Plan Impression: Acute hypoxic respiratory failure Dependence on supplemental oxygen End-stage renal disease, on hemodialysis Heart failure with recent pericardial window due to recurrent pericardial effusions Refractory ascites due to cirrhosis with frequent paracentesis Diabetes mellitus Non-ST elevation NE Events: Patient seen and examined at bedside. On 5 liters per minute nasal cannula with humidifier Taper O2 as tolerated Remains on pressors for hemodynamic support On Levophed at 22 mcg/min Titrate to keep mean arterial pressure greater than 65 mmHg. Increased pressor requirements Head of bed elevation Aspiration precautions Hemodialysis per Nephrology Nephrology recs appreciated Monitor renal function Monitor electrolytes. Supplement as necessary. Potassium supplementation Ultrasound venous Doppler of BLE showing no e/o deep venous thrombosis Continue antibiotics WBC trended down, 33.1 K --> 23.2 k Incentive spirometry Monitor hemoglobin - stable at 7.3 g/dL Transfuse to keep greater than or equal to 7 g/dL Iron supplementation Pain control Avoid oversedation TPN for nutritional support Protonix for GI prophylaxis Recommend LTAC. Poor prognosis due to multiple comorbidities. Family discussion with DRUG REGULATORY AFFAIRS SPECIALIST - family declined hospice. S/p paracentesis on 01/13/25- 3.3 liters of ascitic fluid removed Received albumin post paracentesis - See separate procedure note for details. S/p paracentesis on 01/10/25 Labs and imaging reviewed. Rest of plan as noted below. Plan: Supplemental oxygen Titrate to keep O2 sats above 92%. Head of bed elevation Aspiration precautions Off steroids Pressors as necessary for hemodynamic support Titrate to keep mean arterial pressure greater than 65 mmHg. Accu-Cheks, ISS PRN Hemodialysis per Nephrology Nephrology recommendations appreciated. Monitor renal function. Monitor electrolytes. Supplement as necessary. Monitor ins and outs. GI prophylaxis - Protonix DVT prophylaxis. Prognosis: Poor given patient's multiple co-morbidities. Condition: Critical Rest of plan per hospitalist and other consultants. A total of 35 minutes of critical care time was spent reviewing the patient record, examining the patient, making a diagnostic and therapeutic plan, discussing this plan with the medical personnel, following up on diagnostic studies and following the patient for clinical stability excluding any and all procedures. At least 50% of this time was spent in direct, [id number] contact. Thank you, ELLIE Moreland, for allowing me to participate in this patient's care. Further recommendations will depend on the patient's clinical course. Please do not hesitate to contact me if you have any questions or concerns. This medical document was created using an electronic medical record system with [employer] dictation system. Although these documentations are being carefully reviewed, there may still be some phonetic and typographical changes. The errors are purely typographical, due to imperfection on the software program, and do not reflect any compromise in the patient's medical care. Dietary Evaluation Review Comments: 1) Nepro carb steady 240ml BID (ordered per ONS protocol) 2) Neprhro-Kaela 1 tab daily 3) Continue current plan of care Expected Outcomes/Goals: To meet >75% estimated needs Fu 3-5 days Plan discussed with: Other (LAVERNE Cannon) Critical Care Time(min): 35 MAYE HEATH MD February 10, 2025 22:55
[2025-02-11] VITALS (65 sets, daily range): BP systolic 60–127; BP diastolic 20–56; PULSE 47–97; RESP 11–25; TEMP 97.8–100; O2SAT 74–100
[2025-02-11 05:41] LABS: Alanine Aminotransferase 11 U/L (7-40); Albumin 3.7 g/dL (3.2-4.8); Anion Gap 15 (5-15); Aspartate Aminotransferase 20 U/L (13-40); BUN/Creatinine Ratio 28.9 (10.0-20.0); Calcium 9.4 mg/dL (8.7-10.4); Magnesium 2.1 mg/dL (1.6-2.6); Phosphorus 3.1 mg/dL (2.4-5.1); Total Protein 5.8 g/dL (5.7-8.2)
[2025-02-11 05:54] LABS: Alkaline Phosphatase 200 U/L (46-116); Bilirubin, Total 3.5 mg/dL (0.2-1.0); Carbon Dioxide 20 mmol/L (20-31); Chloride 98 mmol/L (98-107); Glucose 213 mg/dL (74-106); Potassium 5.5 mmol/L (3.5-5.1); Sodium 133 mmol/L (136-145)
[2025-02-11 05:55] LABS: Blood Urea Nitrogen 95 mg/dL (9-23)
[2025-02-11 09:04] LABS: Base Excess -5.3 mmol/L (-2.0-3.0)
--- NOTE | 2025-02-11 09:20 | DVHPN2 ---
Subjective Patient encephalopathic Reviewed: Care Plan, H&P, Labs, Medications, Previous Orders, Radiology, Other (Consultations) Changes from previous H/P or p: No Changes General: Per HPI Objective Vitals Vital Signs Date Time Temp Pulse Resp B/P (MAP) Pulse Ox O2 Delivery O2 Flow Rate FiO2 02/11/25 06:30 86 13 123/54 (77) 86 02/11/25 06:00 Nasal Cannula* 6 44 02/11/25 04:00 97.8 97.8 Intake/Output Intake and Output 02/11/25 07:00 Intake Total 2266.635 ml Output Total 0 ml Balance 2266.635 ml Intake Oral 0 ml IV Total 2266.635 ml Output Urine Total 0 ml General Appearance: Alert, moderate distress, Other (Encephalopathic) HEENT: Atraumatic, Other (Blind) Lungs: Other (Decreased air entry bilateral) Cardiovascular: Normal S1, Normal S2, Other (Tracking failure) Abdomen: Normal bowel sounds, Soft, No tenderness, Other (Resolved ascites after paracentesis of almost 4 liters) Musculoskeletal: Weak motor strength RUE, Weak motor strength LUE, Weak motor strength RLE, Weak motor strength LLE Extremities: Other (Left upper extremity AV fistula with good bruit and thrill; dusky extremities) Neuro: Normal speech, Cranial nerves 3-12 NL, Other (Reviewed) Skin: Dry, Intact Psych/Mental Status: Mental status NL, Mood NL Medications Current Medications Medications Dose Ordered Sig/Honey Route Start Time Stop Time Status Last Admin Dose Admin Pantoprazole Sodium 40 mg DAILY IV 01/10/25 10:00 02/10/25 11:50 40 MG Ondansetron HCl 4 mg Q8HPRN PRN IV 01/09/25 10:30 01/30/25 20:04 4 MG Acetaminophen 650 mg Q6HP PRN PO 01/09/25 10:30 02/07/25 23:43 650 MG Ferrous Sulfate 325 mg BIDWM PO 01/10/25 18:00 02/08/25 10:25 325 MG Sevelamer HCl 800 mg TIDWM PO 01/10/25 18:00 02/08/25 10:25 800 MG Gabapentin 100 mg TID PO 01/11/25 14:00 02/09/25 05:46 100 MG Emollient Ointment 1 applic PRN PRN TOP 01/14/25 10:30 02/02/25 04:36 1 APPLIC Albumin Human 100 ml @ 100 mls/hr PRN PRN IV 01/15/25 10:30 02/09/25 16:21 100 MLS/HR Multivit/Ca Carb/ B Cmplx/FA/Prenat 1 tab DAILY PO 01/16/25 10:00 02/08/25 10:25 1 TAB Phenylephrine HCl 80 mg/Sodium Chloride 250 ml @ 7.5 mls/hr Q24H IV 01/19/25 12:00 Polyethylene Glycol 17 gm DAILYPRN PRN PO 01/21/25 12:15 01/25/25 09:59 17 GM Sennosides 8.6 mg QHSP PRN PO 01/21/25 12:15 01/24/25 23:56 8.6 MG Norepinephrine Bitartrate 32 mg/ Sodium Chloride 250 ml @ 0.938 mls/ hr Q24H IV 01/21/25 12:15 02/11/25 07:25 9.609 MLS/HR Midodrine 10 mg TID@0600,1200,1800 PO 01/24/25 06:00 02/07/25 05:58 10 MG Morphine Sulfate 2 mg Q2HPRN PRN IV 01/28/25 15:30 02/10/25 04:52 2 MG Nystatin 5 ml QID MT 01/29/25 12:00 02/09/25 05:46 5 ML Amiodarone HCl 200 mg Q12HR PO 02/01/25 10:00 02/08/25 10:25 200 MG Lactulose 30 ml DAILY PO 02/03/25 10:00 02/08/25 10:25 30 ML Hydromorphone HCl 0.5 mg Q2HPRN PRN IV 02/03/25 16:15 02/07/25 03:17 0.5 MG Glycopyrrolate 0.4 mg Q4HP PRN IV 02/03/25 16:15 Lorazepam 0.5 mg Q4HP PRN IV 02/03/25 16:15 Phenol/Menthol 1 spr Q4HP PRN MT 02/05/25 13:45 02/05/25 17:27 1 SPR Amino Acids 0 ml @ 0 mls/hr PER PHARMACY IV 02/06/25 11:00 Diagnostic Test (Pha) 1 strip Q6HR 02/09/25 18:00 02/11/25 06:00 1 STRIP Insulin Human Regular Q6HR SC 02/09/25 18:00 02/10/25 18:18 12 UNITS Dextrose 50 ml UD PRN IV 02/09/25 13:45 Fat Emulsion Intravenous 200 ml/Sodium Chloride 100 meq/ Sodium Acetate 20 meq/Potassium Chloride 40 meq/ Magnesium Sulfate 4 meq/ Multivitamins 10 ml/Insulin Human Regular 20 units/ Amino Acids/ Dextrose 1,366.2 ml @ 57 mls/hr [id number] IV 02/10/25 22:00 02/11/25 21:59 02/10/25 21:58 57 MLS/HR Cefepime HCl 50 ml @ 12.5 mls/hr Q8HR IV 02/11/25 14:00 UNV Bacitracin 1 applic BID TOP 02/11/25 10:00 UNV Laboratory Results Laboratory Tests 02/09/25 04:30 02/11/25 04:59 Chemistry Test 02/11/25 04:59 Albumin 3.7 g/dL (3.2-4.8) Calcium Level 9.4 mg/dL (8.7-10.4) Magnesium Level 2.1 mg/dL (1.6-2.6) Phosphorus Level 3.1 mg/dL (2.4-5.1) Total Protein 5.8 g/dL (5.7-8.2) LFT Test 02/11/25 04:59 Alanine Aminotransferase (ALT) 11 U/L (7-40) Alkaline Phosphatase 200 U/L (46-116) H Aspartate Amino Transferase (AST) 20 U/L (13-40) Total Bilirubin 3.5 mg/dL (0.2-1.0) H Blood Gas Results Test 02/11/25 08:57 Arterial Blood pH 7.397 (7.350-7.450) FiO2 % 64.0 Microbiology Microbiology Date/Time Source Procedure Growth Status 02/06/25 08:57 Blood Blood Culture - Final Klebsiella pneumoniae Complete 01/10/25 12:45 Ascities Fluid Gram Stain - Final Complete 01/10/25 12:45 Ascities Fluid Body Fluid Culture - Final Complete 01/09/25 14:00 Sputum Gram Stain - Final Complete 01/09/25 14:00 Respiratory Culture - Final Presumptive Lisa albicans Complete 01/09/25 05:00 Nose MRSA Screen - Final Complete Labs and/or images reviewed: Labs reviewed by me, Image(s) reviewed by me Assessment/Plan Assessment/Plan Plan: -septic shock with VRE in the blood -cirrhosis with severe ascites -ESRD with hemodialysis -NSTEMI, probably type secondary to recent pericardiocentesis -legally blind -anemia of chronic disease - dyslipidemia -paroxysmal atrial fibrillation -possible infiltration of norepinephrine to right upper extremity with extravasation. Plan: Events: No events overnight. Unable to have thigh PICC placed. We will attempt to obtain consent for exchange of left femoral central line over a wire. Questionable cellulitis to dialysis fistula. Continue current IV antibiotic therapy with cefepime given current cultures. Topical bacitracin to fistula site -repeat blood cultures : Klebsiella pneumoniae -stop Zyvox and Merrem. Deescalate to cefepime 2 g -ABG -social service consultation -patient continues to require norepinephrine, currently at 20 micrograms/minute -continue TPN -continue nystatin if patient is willing to take medication -pain management: Continue current regimen -repeat labs in a.m. Critical care time spent with patient discussing and formulating plan of care: 90 minutes. This does not include time spent performing procedures. -poor prognosis. This was discussed with patient's family on multiple occasions. This medical document was created using an electronic medical record system with [employer] dictation system. Although this document has been carefully reviewed, there may still be some phonetic and typographical errors. These areas are purely typographical due to imperfections of the software programs, and do not reflect any compromise in the patient's medical care. Plan discussed with: Patient, Other (RN) My Orders Orders - PAVEL GUAMAN NP Procedure Category Date Status Time Amino Acid PHA 02/10/25 In Process Infusion... W/Fat 22:00 Tpn Per Pharmacy REGINALD 02/10/25 In Process 22:00 Cefepime 2gm/50ml Ns PHA 02/11/25 Logged (Maxipime 2gm/50ml) 14:00 Complete Blood Count LAB 02/12/25 Verified 04:00 Bacitracin Ointment PHA 02/11/25 Logged 10:00 Date of Service: February 11, 2025 Billing Provider: SALBINO,ZHAO INSTALLER [employer] Common Visit Codes: [id number] CARE 30-74 MIN PAVEL GUAMAN NP February 11, 2025 09:20
[2025-02-11] MEDS: SODIUM ZIRCONIUM CYCL 10 GM PAK PO ONE (10:15)
--- NOTE | 2025-02-11 11:24 | DVHPN2 ---
Progress Note Date Seen: February 11, 2025 Medical Necessity Reason Pt with a Central, PICC or Fol: Yes The following are medically ne: Central Line Subjective Patient reports: No new complaints Other Systems: Patient seen and examined by myself today in follow-up Objective vital signs Vital Sign Date Time Temp Pulse Resp B/P (MAP) Pulse Ox O2 Delivery O2 Flow Rate FiO2 02/11/25 11:00 84 15 105/44 (64) 02/11/25 10:00 Nasal Cannula* 4 36 02/11/25 10:00 98 02/11/25 04:00 97.8 97.8 Total Intake and Output 02/10/25 02/10/25 02/11/25 15:00 23:00 07:00 Intake Total 506.504 ml 355.504 ml 1404.627 ml Output Total 0 ml Balance 506.504 ml 355.504 ml 1404.627 ml medications Current Medications Medications Dose Ordered Sig/Honey Route Start Time Stop Time Status Last Admin Dose Admin Pantoprazole Sodium 40 mg DAILY IV 01/10/25 10:00 02/11/25 09:26 40 MG Ondansetron HCl 4 mg Q8HPRN PRN IV 01/09/25 10:30 01/30/25 20:04 4 MG Acetaminophen 650 mg Q6HP PRN PO 01/09/25 10:30 02/07/25 23:43 650 MG Ferrous Sulfate 325 mg BIDWM PO 01/10/25 18:00 02/08/25 10:25 325 MG Sevelamer HCl 800 mg TIDWM PO 01/10/25 18:00 02/08/25 10:25 800 MG Gabapentin 100 mg TID PO 01/11/25 14:00 02/09/25 05:46 100 MG Emollient Ointment 1 applic PRN PRN TOP 01/14/25 10:30 02/02/25 04:36 1 APPLIC Albumin Human 100 ml @ 100 mls/hr PRN PRN IV 01/15/25 10:30 02/09/25 16:21 100 MLS/HR Multivit/Ca Carb/ B Cmplx/FA/Prenat 1 tab DAILY PO 01/16/25 10:00 02/08/25 10:25 1 TAB Phenylephrine HCl 80 mg/Sodium Chloride 250 ml @ 7.5 mls/hr Q24H IV 01/19/25 12:00 Polyethylene Glycol 17 gm DAILYPRN PRN PO 01/21/25 12:15 01/25/25 09:59 17 GM Sennosides 8.6 mg QHSP PRN PO 01/21/25 12:15 01/24/25 23:56 8.6 MG Norepinephrine Bitartrate 32 mg/ Sodium Chloride 250 ml @ 0.938 mls/ hr Q24H IV 01/21/25 12:15 02/11/25 07:25 9.609 MLS/HR Midodrine 10 mg TID@0600,1200,1800 PO 01/24/25 06:00 02/07/25 05:58 10 MG Morphine Sulfate 2 mg Q2HPRN PRN IV 01/28/25 15:30 02/10/25 04:52 2 MG Nystatin 5 ml QID MT 01/29/25 12:00 02/09/25 05:46 5 ML Amiodarone HCl 200 mg Q12HR PO 02/01/25 10:00 02/08/25 10:25 200 MG Lactulose 30 ml DAILY PO 02/03/25 10:00 02/08/25 10:25 30 ML Hydromorphone HCl 0.5 mg Q2HPRN PRN IV 02/03/25 16:15 02/07/25 03:17 0.5 MG Glycopyrrolate 0.4 mg Q4HP PRN IV 02/03/25 16:15 Lorazepam 0.5 mg Q4HP PRN IV 02/03/25 16:15 Phenol/Menthol 1 spr Q4HP PRN MT 02/05/25 13:45 02/05/25 17:27 1 SPR Amino Acids 0 ml @ 0 mls/hr PER PHARMACY IV 02/06/25 11:00 Diagnostic Test (Pha) 1 strip Q6HR 02/09/25 18:00 02/11/25 06:00 1 STRIP Insulin Human Regular Q6HR SC 02/09/25 18:00 02/10/25 18:18 12 UNITS Dextrose 50 ml UD PRN IV 02/09/25 13:45 Fat Emulsion Intravenous 200 ml/Sodium Chloride 100 meq/ Sodium Acetate 20 meq/Potassium Chloride 40 meq/ Magnesium Sulfate 4 meq/ Multivitamins 10 ml/Insulin Human Regular 20 units/ Amino Acids/ Dextrose 1,366.2 ml @ 57 mls/hr [id number] IV 02/10/25 22:00 02/11/25 21:59 Hold 02/10/25 21:58 57 MLS/HR Cefepime HCl 50 ml @ 12.5 mls/hr Q8HR IV 02/11/25 14:00 Bacitracin 1 applic BID TOP 02/11/25 10:00 Examination: LUNGS:Normal, CVS:Normal, MSK:Normal, NEURO:Abnormal laboratory and microbiology Laboratory Tests 02/11/25 04:59 02/09/25 04:30 Test 02/11/25 04:59 Range/Units Serum Glucose 213 H 74-106 mg/dL Microbiology Date/Time Source Procedure Growth Status 02/06/25 08:57 Blood Blood Culture - Final Klebsiella pneumoniae Complete 01/10/25 12:45 Ascities Fluid Gram Stain - Final Complete 01/10/25 12:45 Ascities Fluid Body Fluid Culture - Final Complete 01/09/25 14:00 Sputum Gram Stain - Final Complete 01/09/25 14:00 Respiratory Culture - Final Presumptive Lisa albicans Complete 01/09/25 05:00 Nose MRSA Screen - Final Complete Problem List/Assessment/Plan Problem List/Assessment/Plan End-stage renal disease on hemodialysis Encephalopathy Chronic diastolic Congestive heart failure Recurrent pericardial effusion decompensated cirrhosis Diabetes mellitus type 2 Sepsis hyperkalemia, resolved VRE bacteremia Recommendations Hemodialysis tomorrow Epogen 48368 subQ 3 times weekly Albumin 25% p.r.n. hemodialysis Strict I&Os Renal diet IV pressors for blood pressure support IV antibiotic per ID recommendations We will continue to follow Plan discussed with: Other (Nurse) My Orders My Orders Orders - MARÍA AMADOR MD Procedure Category Date Status Time Hemodialysis Orders ORDERS 02/12/25 Transmitted 07:00 Dialysis Nursing REGINALD 02/12/25 In Process Message 07:00 Heparin Sodium PHA 02/12/25 In Process (Porcine) 07:00 Sodium Chloride 0.9% PHA 02/12/25 In Process 07:00 Document Fluid Input REGINALD 02/12/25 In Process And Outpu 07:00 Epoetin Hola-Epbx PHA 02/12/25 In Process (Retacrit) 21:00 Dietary Evaluation Review Comments: 1) Nepro carb steady 240ml BID (ordered per [facility] protocol) 2) Neprhro-Kaela 1 tab daily 3) Continue current plan of care Expected Outcomes/Goals: To meet >75% estimated needs Fu 3-5 days MARÍA AMADOR MD February 11, 2025 11:24
--- NOTE | 2025-02-11 12:20 | DVHPN2 ---
Progress Note - Dictate Date Seen: February 11, 2025 Medical Necessity Reason Pt with a Central, PICC or Fol: Yes The following are medically ne: Central Line vital signs Vital Sign Date Time Temp Pulse Resp B/P (MAP) Pulse Ox O2 Delivery O2 Flow Rate FiO2 02/11/25 11:00 84 15 105/44 (64) 02/11/25 10:00 Nasal Cannula* 4 36 02/11/25 10:00 98 02/11/25 04:00 97.8 97.8 Total Intake and Output 02/10/25 02/10/25 02/11/25 15:00 23:00 07:00 Intake Total 506.504 ml 355.504 ml 1404.627 ml Output Total 0 ml Balance 506.504 ml 355.504 ml 1404.627 ml medications Current Medications Medications Dose Ordered Sig/Honey Route Start Time Stop Time Status Last Admin Dose Admin Pantoprazole Sodium 40 mg DAILY IV 01/10/25 10:00 02/11/25 09:26 40 MG Ondansetron HCl 4 mg Q8HPRN PRN IV 01/09/25 10:30 01/30/25 20:04 4 MG Acetaminophen 650 mg Q6HP PRN PO 01/09/25 10:30 02/07/25 23:43 650 MG Ferrous Sulfate 325 mg BIDWM PO 01/10/25 18:00 02/08/25 10:25 325 MG Sevelamer HCl 800 mg TIDWM PO 01/10/25 18:00 02/08/25 10:25 800 MG Gabapentin 100 mg TID PO 01/11/25 14:00 02/09/25 05:46 100 MG Emollient Ointment 1 applic PRN PRN TOP 01/14/25 10:30 02/02/25 04:36 1 APPLIC Albumin Human 100 ml @ 100 mls/hr PRN PRN IV 01/15/25 10:30 02/09/25 16:21 100 MLS/HR Multivit/Ca Carb/ B Cmplx/FA/Prenat 1 tab DAILY PO 01/16/25 10:00 02/08/25 10:25 1 TAB Phenylephrine HCl 80 mg/Sodium Chloride 250 ml @ 7.5 mls/hr Q24H IV 01/19/25 12:00 Polyethylene Glycol 17 gm DAILYPRN PRN PO 01/21/25 12:15 5/2/25 09:59 17 GM Sennosides 8.6 mg QHSP PRN PO 01/21/25 12:15 01/24/25 23:56 8.6 MG Norepinephrine Bitartrate 32 mg/ Sodium Chloride 250 ml @ 0.938 mls/ hr Q24H IV 01/21/25 12:15 02/11/25 07:25 9.609 MLS/HR Midodrine 10 mg TID@0600,1200,1800 PO 01/24/25 06:00 02/07/25 05:58 10 MG Morphine Sulfate 2 mg Q2HPRN PRN IV 01/28/25 15:30 02/10/25 04:52 2 MG Nystatin 5 ml QID MT 01/29/25 12:00 02/09/25 05:46 5 ML Amiodarone HCl 200 mg Q12HR PO 02/01/25 10:00 02/08/25 10:25 200 MG Lactulose 30 ml DAILY PO 02/03/25 10:00 02/08/25 10:25 30 ML Hydromorphone HCl 0.5 mg Q2HPRN PRN IV 02/03/25 16:15 02/07/25 03:17 0.5 MG Glycopyrrolate 0.4 mg Q4HP PRN IV 02/03/25 16:15 Lorazepam 0.5 mg Q4HP PRN IV 02/03/25 16:15 Phenol/Menthol 1 spr Q4HP PRN MT 02/05/25 13:45 02/05/25 17:27 1 SPR Amino Acids 0 ml @ 0 mls/hr PER PHARMACY IV 02/06/25 11:00 Diagnostic Test (Pha) 1 strip Q6HR 02/09/25 18:00 02/11/25 06:00 1 STRIP Insulin Human Regular Q6HR SC 02/09/25 18:00 02/10/25 18:18 12 UNITS Dextrose 50 ml UD PRN IV 02/09/25 13:45 Cefepime HCl 50 ml @ 12.5 mls/hr Q8HR IV 02/11/25 14:00 Bacitracin 1 applic BID TOP 02/11/25 10:00 laboratory and microbiology Laboratory Tests 02/11/25 04:59 02/09/25 04:30 Test 02/11/25 04:59 Range/Units Serum Glucose 213 H 74-106 mg/dL Assessment/Plan Impression Acute hypoxemic respiratory failure Liver cirrhosis ESRD on HD Ascites Patient seen and examined Events Low oxygen requirements On 2 liters nasal cannula Patient Levophed dependent Prognosis very poor Remains full code despite aggressive efforts to change goals of care Labs and imaging reviewed Management Supplemental oxygen Titrate to maintain sats 90% or above Incentive spirometry Aspiration precautions Continue antibiotics F/u cultures and ID Bronchodilators Monitor renal function HD as per nephrology Management deferred Monitor electrolytes Supplement as needed Prognosis very poor, Levophed dependent Remains full code despite aggressive efforts to change goals of care DVT prophylaxis Critical care time 35 minutes Dietary Evaluation Review Comments: 1) Nepro carb steady 240ml BID (ordered per [facility] protocol) 2) Neprhro-Kaela 1 tab daily 3) Continue current plan of care Expected Outcomes/Goals: To meet >75% estimated needs Fu 3-5 days Plan discussed with: Patient MARIA FERNANDA CHAMBERS MD February 11, 2025 12:20
[2025-02-11] MEDS: BACITRACIN TOP OINT 1 UD PKG TOP SCH (15:17)
[2025-02-11] MEDS: DEXTROSE (50%) 50ML SYRG IV ONE (15:18)
[2025-02-11] MEDS: CEFEPIME 2GM/50ML NS 50 ML IV SCH (15:18)
[2025-02-11] MEDS: InsuLIN REG 1unit/0.01ml Soln (100units/ml) IV ONE (15:19)
[2025-02-11] MEDS: DEXTROSE 10% 1,000 ML IV SCH (15:19)
[2025-02-11] MEDS: VASOPRESSIN 20 UNITS in SODIUM CHL 0.9% 99 ML IV SCH (15:48)
--- NOTE | 2025-02-11 16:24 | DVHDS2 ---
Discharge Summary Date of Admission Jan 08, 2025 at 21:36 Date of Discharge: February 11, 2025 Admitting Diagnosis Septic shock Labs/Diagnostic Data: Laboratory Results Test 02/11/25 15:19 02/11/25 08:57 02/11/25 04:59 02/09/25 04:30 POC Glucose 135 mg/dl (70-106) Blood Gas Specimen Type Arterial Blood Gas Sample Site Arterial line Blood Gas Patient Temperature 37.0 Arterial Blood Date Drawn [id number] Arterial Blood pH 7.397 (7.350-7.450) Arterial Blood Partial Pressure CO2 31.5 mmHg (32.0-45.0) Arterial Blood Partial Pressure O2 176.3 mmHg (83.0-108.0) Arterial Blood HCO3 18.9 mmol/L (21.0-28.0) Arterial Blood Oxygen Saturation 99.0 % (94.0-98.0) Arterial Blood Base Excess -5.3 mmol/L (-2.0-3.0) Arterial Blood Oxyhemoglobin 97.3 % (94.0-98.0) Arterial Blood Carboxyhemoglobin 1.3 % (0.5-1.5) Arterial Blood Methemoglobin 0.4 % (0.0-1.5) Dima Test N/a Blood Gas Total Hemoglobin 7.10 g/dL (12.0-16.0) Blood Gas Liter Flow 8.00 Blood Gas Modality Oxymizer FiO2 % 64.0 Sodium Level 133 mmol/L (136-145) Potassium Level 5.5 mmol/L (3.5-5.1) Chloride Level 98 mmol/L (98-107) Carbon Dioxide Level 20 mmol/L (20-31) Anion Gap 15 (5-15) Blood Urea Nitrogen 95 mg/dL (9-23) Creatinine 3.29 mg/dL (0.550-1.02) Glomerular Filtration Rate Calc 16 mL/min (>90) BUN/Creatinine Ratio 28.9 (10.0-20.0) Serum Glucose 213 mg/dL (74-106) Calcium Level 9.4 mg/dL (8.7-10.4) Phosphorus Level 3.1 mg/dL (2.4-5.1) Magnesium Level 2.1 mg/dL (1.6-2.6) Total Bilirubin 3.5 mg/dL (0.2-1.0) Aspartate Amino Transferase (AST) 20 U/L (13-40) Alanine Aminotransferase (ALT) 11 U/L (7-40) Alkaline Phosphatase 200 U/L (46-116) Total Protein 5.8 g/dL (5.7-8.2) Albumin 3.7 g/dL (3.2-4.8) White Blood Count 23.2 10^3/uL (4.4-10.8) Red Blood Count 2.30 10^6/uL (4.0-5.20) Hemoglobin 7.3 g/dL (12.2-16.2) Hematocrit 22.7 % (36.0-46.0) Mean Corpuscular Volume 98.7 fL (80.0-100.0) Mean Corpuscular Hemoglobin 31.9 pg (28.0-32.0) Mean Corpuscular Hemoglobin Concent 32.3 g/dL (32.0-36.0) Red Cell Distribution Width 19.9 % (11.8-14.3) Platelet Count 82 10^3/uL (140-450) Mean Platelet Volume 11.5 fL (6.9-10.8) Neutrophils (%) (Auto) 94.7 % (37.0-80.0) Lymphocytes (%) (Auto) 1.7 % (10.0-50.0) Monocytes (%) (Auto) 2.0 % (0.0-12.0) Eosinophils (%) (Auto) 1.1 % (0.0-7.0) Basophils (%) (Auto) 0.5 % (0.0-2.0) Neutrophils # (Auto) 21.9 10 ^3/uL (1.6-8.6) Lymphocytes # (Auto) 0.4 10 ^3/uL (0.4-5.4) Monocytes # (Auto) 0.5 10 ^3/uL (0-1.3) Eosinophils # (Auto) 0.3 10 ^3/uL (0-0.8) Basophils # (Auto) 0.1 10 ^3/uL (0-0.2) Nucleated Red Blood Cells 0.1 % Test 02/08/25 08:35 02/07/25 04:45 02/04/25 05:11 01/31/25 09:18 Differential Total Cells Counted 100.0 (100) Neutrophils % (Manual) 94 (37.0-80.0) Band Neutrophils % (Manual) 0 Lymphocytes % (Manual) 2 (10.0-50.0) Monocytes % (Manual) 4 (0-12) Eosinophils % (Manual) 0 (0-7) Basophils % (Manual) 0 (0.0-2.0) Metamyelocytes % (manual) 0 Myelocytes % (Manual) 0 Promyelocytes % (Manual) 0 Blast Cells % (Manual) 0 Reactive Lymphocytes 0 Platelet Estimate Decreased Anisocytosis (manual) Slight Macrocytosis Slight Large Platelets Few Stomatocytes Few Triglycerides Level 83 mg/dL (< 150) Polychromasia Slight Target Cells Few Lactic Acid Level 1.7 mmol/L (0.4-2.0) Ammonia 20 umol/L (11-32) Test 01/31/25 04:35 01/26/25 10:52 01/20/25 06:05 01/19/25 13:14 Erythrocyte Sedimentation Rate 2 mm/hr (0-20) C-Reactive Protein High Sensitivity 0.95 mg/dL (<1.0) Hepatitis A IgM Antibody Negative Hepatitis B Surface Antigen Negative (Negative) Hepatitis B Core IgM Antibody Negative (Negative) Hepatitis C Antibody Negative (Negative) Body Fluid Source Peritoneal fluid Body Fluid WBC (Manual) 222 CUMM (0-200) Body Fluid RBC (Manual) 917 CUMM (0-2000) Body Fluid Mononuclear Cells 9 % Body Fluid Polymorphonuclear Cells 91 % (0-25) Body Fluid Glucose 208 mg/dL (.) Body Fluid Total Protein 2.6 g/dL (.) B-Type Natriuretic Peptide > 5000.00 pg/mL (0-100) Troponin I High Sensitivity 135 ng/L (</=34) Test 01/10/25 12:45 01/10/25 05:19 01/09/25 03:50 01/09/25 00:57 Body Fluid pH 8.0 Body Fluid Lactate Dehydrogenase 81 IU/L (.) Iron Level 21 ug/dL (50-170) Total Iron Binding Capacity 120 ug/dL (250-425) Percent Iron Saturation 17.5 % (15-50) Ferritin 257.9 ng/mL (10-291) Influenza Type A Antigen Negative (Negative) Influenza Type B Antigen Negative (Negative) SARS-CoV-2 Antigen (Rapid) Negative (NEGATIVE) Hemoglobin A1c 6.8 % A1C (<5.7) Vitamin B12 Level 868 pg/mL (211-911) Folic Acid 19.06 ng/mL (>5.38) Thyroid Stimulating Hormone (TSH) 0.97 uIU/mL (0.55-4.78) Test 01/08/25 19:36 Prothrombin Time 14.5 sec (9.3-11.8) Prothrombin Time INR 1.42 (0.9-1.15) Other Laboratory Tests 02/11/25 04:59 02/09/25 04:30 Brief Hx & Hospital Course: History of Present Illness 59 Year old female who is legally blind because of diabetic nephropathy, has past medical history of end-stage renal disease gets dialysis on Tuesday, anemia of chronic disease, CHF, diabetes, hypertension, liver cirrhosis, ascites, gout and hyperlipidemia presented with complaint of altered level of consciousness. Patient was recently admitted at [place] for around 12 days because she missed her dialysis. In [facility] patient received dialysis and was found to have ascites where she got paracentesis and was told that she has" water around the heart and the lungs", patient was discharged denied before presenting to the ED. patient started having altered level of consciousness at home, and was groggy and confused. Patient has slept all day and that concerned the daughter who brought the patient to the ER History was obtained from daughter through phone Patient is currently alert and oriented x1 confused. Daughter also mentioned that patient is saying that she can see colors but patient is legally blind. Course of hospitalization: Patient was placed on vasopressor therapy, for which she was never been able to be weaned off. Patient had multiple paracentesis with elevated white blood cell count, also noted to have bacteremia with VRE in the blood. Patient was given full course of Zyvox, with VRE clearing. Despite improvement with her leukocytosis and all cultures coming back negative, the patient had difficulty being weaned off of norepinephrine. Patient had arterial line placed in right femoral artery to assist with titration of hemodynamic medications. Patient was also found to have decreased perfusion to right upper extremity, for which arterial study was performed. Long discussion was made with the patient's family regarding multiple comorbidities including cirrhosis, end-stage renal disease, recurrent pericardial fluid, with borderline tamponade over the past several months. Patient at one point was agreeable to withdraw care and stop hemodialysis, then changed her mind the following day. Patient had increase in her white blood cell count, now found to have Klebsiella pneumoniae in her blood. Attempts were made to place a thigh PICC line given her poor vascular access and attempt to remove left femoral central line. This also was unsuccessful. Today, the patient had periods of bradycardia as well as apnea. Patient's [id number] who was bedside. Rest of the family was contacted to notify them of her declining status. Patient was found to be asystolic, despite being on multiple vasopressors. Patient was at that time made chemical code only with current vasopressor therapy. Time of was declared at 4:00 p.m. by myself. Patient's [id number] was at bedside. Consults/Reason for consult Nephrology: Hemodialysis Pulmonology: Respiratory failure Cardiology: NSTEMI Condition at Discharge: Poor Final Diagnosis/Problems List -septic shock with VRE in the blood -cirrhosis with severe ascites -ESRD with hemodialysis -NSTEMI, probably type secondary to recent pericardiocentesis -legally blind -anemia of chronic disease - dyslipidemia -paroxysmal atrial fibrillation -possible infiltration of norepinephrine to right upper extremity with extravasation. Discharge Disposition: at Hospital [facility] Discharge Statement: "Patient was advised to return to the ER or call 911 if any headaches, dizziness, shortness of breath, chest pain, abdominal pain, bleeding, fevers, or worsening of medical condition. Patient was counseled about treatment plan, medications, possible side effects, patientverbalized understanding. All questions were answered to the best of my ability. This discharge took greater then 30 minutes in planning, reviewing documentation, counseling the patient, and discussing with other team members." ASSESSMENT ASSESSMENT Assessment Date of Service: February 11, 2025 Billing Provider: PAVEL GUAMAN NP Common Visit Codes: 82207-LNE/OBS DISCH DAY >30min PAVEL GUAMAN NP February 11, 2025 16:24
[2025-02-11] MEDS ORDERED: TPN PER PHARMACY IV NR (22:00)
--- NOTE | 2025-02-11 22:44 | DVHPN2 ---
Progress Note - Dictate Date Seen: February 11, 2025 Medical Necessity Reason Pt with a Central, PICC or Fol: Yes The following are medically ne: Central Line Subjective Patient was seen and evaluated in follow up in the ICU earlier today. Patient continues to be lethargic, drowsy, unable to follow commands. Patient was unable to receive po meds today due to her condition. Patient on Levophed drip. Patient had episode f hypotension with agonal breathing and unresponsiveness. Patient was bagged by RT and became arousable again. Patient placed on Oxymizer afterwards. Patient continued to declined. Patient went into asystole and TOD was called at 160.. vital signs Vital Sign Date Time Temp Pulse Resp B/P (MAP) Pulse Ox O2 Delivery O2 Flow Rate FiO2 02/11/25 15:48 60/20 02/11/25 15:45 47 11 02/11/25 14:00 Nasal Cannula* 4 36 02/11/25 13:00 99.5 99.5 02/11/25 10:00 98 Total Intake and Output 02/10/25 02/10/25 02/11/25 15:00 23:00 07:00 Intake Total 506.504 ml 355.504 ml 1404.627 ml Output Total 0 ml Balance 506.504 ml 355.504 ml 1404.627 ml objective GENERAL: Alert and oriented x 2. No acute distress. EYES: PERRL, EOMI. Anicteric. HENT: Moist mucous membranes. LUNGS: Clear to auscultation bilaterally. CARDIOVASCULAR: Regular rate and rhythm. Systolic murmur. ABDOMEN: Ascites, large distended abdomen. EXTREMITIES: No edema. NEUROLOGIC: No focal neurological deficits. SKIN: Mottling to bilateral lower extremities. Bilateral feet cool to touch. laboratory and microbiology Laboratory Tests 02/11/25 04:59 02/09/25 04:30 Test 02/11/25 04:59 Range/Units Serum Glucose 213 H 74-106 mg/dL Problem List Atrial tachycardia, now in junctional rhythm. NSTEMI, likely type II. Chronic HFpEF with right-sided heart failure, NYHA class III. History of atrial fibrillation (on amiodarone and Eliquis). Chronic pericardial effusion. History of hypertension. Hyperlipidemia. Decompensated liver cirrhosis with refractory ascites. Ascites. Type 2 diabetes mellitus. End-stage renal disease on hemodialysis. Acute hepatic/metabolic/toxic encephalopathy. Acute hypoxic respiratory failure. Septic shock due to Enterococcus faecium. Blindness. Hearing loss. Assessment/Plan Continued all current supportive medical care. Amiodarone. Dilaudid and Morphine for pain management. GI prophylactics. IV antibiotics as ordered. Vasopressors for hemodynamic support. Additional plan as per the hospital course. Critical care time of 45 minutes provided to include time spent evaluation of patient at bedside, when appropriate patient/family education for diagnosis, treatment plan, review of pertinent medical information and discussion of care with specialty providers and PCP. Dietary Evaluation Review Comments: 1) Nepro carb steady 240ml BID (ordered per [facility] protocol) 2) Neprhro-Kaela 1 tab daily 3) Continue current plan of care Expected Outcomes/Goals: To meet >75% estimated needs Fu 3-5 days Plan discussed with: Other SOREN MARTINEZ MD February 11, 2025 22:44
[2025-02-12] MEDS ORDERED: SODIUM CHL 0.9% 1000 ML BAG XX ONE (07:00)
[2025-02-12] MEDS ORDERED: EPOETIN ALFA-EPBX 10,000 UNIT/1ML VIAL SC ONE (21:00)
== END 2025-02-11 16:00 | DRG 871 ==
LOC: EDBD 17:04 → ER 17:04 → OVERFLOW 21:36 → ICU CENTRL 21:37 → DOU IN ICU 01-09 04:58 → ICU CENTRL 01-09 06:23
PROVIDERS: ADMIT Nurse Practitioner Acute Care; ATTEND Nurse Practitioner Acute Care
PROC: 5A1D70Z Performance of Urinary Filtration, Intermittent, Less than 6 Hours Per Day (ICD-10-PCS; 2025-01-09)
PROC: 06HY33Z Insertion of Infusion Device into Lower Vein, Percutaneous Approach (ICD-10-PCS; 2025-01-09)
PROC: B54CZZA Ultrasonography of Left Lower Extremity Veins, Guidance (ICD-10-PCS; 2025-01-09)
PROC: 0W9G3ZX Drainage of Peritoneal Cavity, Percutaneous Approach, Diagnostic (ICD-10-PCS; 2025-01-10)
PROC: 5A1D70Z Performance of Urinary Filtration, Intermittent, Less than 6 Hours Per Day (ICD-10-PCS; principal; 2025-01-12)
PROC: 0W9G3ZZ Drainage of Peritoneal Cavity, Percutaneous Approach (ICD-10-PCS; 2025-01-13)
PROC: 5A1D70Z Performance of Urinary Filtration, Intermittent, Less than 6 Hours Per Day (ICD-10-PCS; 2025-01-15)
PROC: 5A1D70Z Performance of Urinary Filtration, Intermittent, Less than 6 Hours Per Day (ICD-10-PCS; 2025-01-17)
PROC: 5A1D70Z Performance of Urinary Filtration, Intermittent, Less than 6 Hours Per Day (ICD-10-PCS; 2025-01-19)
PROC: 5A0935A Assistance with Respiratory Ventilation, Less than 24 Consecutive Hours, High Flow/Velocity Cannula (ICD-10-PCS; 2025-01-19)
PROC: 0W9G3ZZ Drainage of Peritoneal Cavity, Percutaneous Approach (ICD-10-PCS; 2025-01-20)
PROC: 5A0935A Assistance with Respiratory Ventilation, Less than 24 Consecutive Hours, High Flow/Velocity Cannula (ICD-10-PCS; 2025-01-20)
PROC: 5A1D70Z Performance of Urinary Filtration, Intermittent, Less than 6 Hours Per Day (ICD-10-PCS; 2025-01-21)
PROC: 5A0935A Assistance with Respiratory Ventilation, Less than 24 Consecutive Hours, High Flow/Velocity Cannula (ICD-10-PCS; 2025-01-21)
PROC: 5A1D70Z Performance of Urinary Filtration, Intermittent, Less than 6 Hours Per Day (ICD-10-PCS; 2025-01-23)
PROC: 5A1D70Z Performance of Urinary Filtration, Intermittent, Less than 6 Hours Per Day (ICD-10-PCS; 2025-01-24)
PROC: 5A1D70Z Performance of Urinary Filtration, Intermittent, Less than 6 Hours Per Day (ICD-10-PCS; 2025-01-26)
PROC: 5A1D70Z Performance of Urinary Filtration, Intermittent, Less than 6 Hours Per Day (ICD-10-PCS; 2025-01-28)
PROC: 5A1D70Z Performance of Urinary Filtration, Intermittent, Less than 6 Hours Per Day (ICD-10-PCS; 2025-01-29)
PROC: 04HY32Z Insertion of Monitoring Device into Lower Artery, Percutaneous Approach (ICD-10-PCS; 2025-01-30)
PROC: 5A1D70Z Performance of Urinary Filtration, Intermittent, Less than 6 Hours Per Day (ICD-10-PCS; 2025-01-31)
PROC: 5A1D70Z Performance of Urinary Filtration, Intermittent, Less than 6 Hours Per Day (ICD-10-PCS; 2025-02-02)
PROC: 5A1D70Z Performance of Urinary Filtration, Intermittent, Less than 6 Hours Per Day (ICD-10-PCS; 2025-02-06)
PROC: 5A1D70Z Performance of Urinary Filtration, Intermittent, Less than 6 Hours Per Day (ICD-10-PCS; 2025-02-07)
PROC: 05H933Z Insertion of Infusion Device into Right Brachial Vein, Percutaneous Approach (ICD-10-PCS; 2025-02-08)
PROC: B54MZZA Ultrasonography of Right Upper Extremity Veins, Guidance (ICD-10-PCS; 2025-02-08)
PROC: 5A1D70Z Performance of Urinary Filtration, Intermittent, Less than 6 Hours Per Day (ICD-10-PCS; 2025-02-09)
DX: A41.81 Sepsis due to Enterococcus (principal); B37.1 Pulmonary candidiasis; R65.21 Severe sepsis with septic shock; N18.6 End stage renal disease; G92.8 Other toxic encephalopathy; J96.21 Acute and chronic respiratory failure with hypoxia; I21.4 Non-ST elevation (NSTEMI) myocardial infarction; R18.8 Other ascites; I47.19 Other supraventricular tachycardia; L03.116 Cellulitis of left lower limb; Z16.21 Resistance to vancomycin; N17.9 Acute kidney failure, unspecified; E11.22 Type 2 diabetes mellitus with diabetic chronic kidney disease; Z99.2 Dependence on renal dialysis; K74.60 Unspecified cirrhosis of liver; M10.9 Gout, unspecified; I48.0 Paroxysmal atrial fibrillation; H54.8 Legal blindness, as defined in USA; D63.8 Anemia in other chronic diseases classified elsewhere; Z20.822 Contact with and (suspected) exposure to COVID-19; E11.40 Type 2 diabetes mellitus with diabetic neuropathy, unspecified; E78.2 Mixed hyperlipidemia; K59.01 Slow transit constipation; R00.1 Bradycardia, unspecified; B37.9 Candidiasis, unspecified; F32.A Depression, unspecified; Z66 Do not resuscitate; D69.6 Thrombocytopenia, unspecified; E11.21 Type 2 diabetes mellitus with diabetic nephropathy; I36.1 Nonrheumatic tricuspid (valve) insufficiency; I25.10 Atherosclerotic heart disease of native coronary artery without angina pectoris; Z90.49 Acquired absence of other specified parts of digestive tract; Z83.3 Family history of diabetes mellitus; Z82.49 Family history of ischemic heart disease and other diseases of the circulatory system; Z79.4 Long term (current) use of insulin; Z79.899 Other long term (current) drug therapy; Z79.891 Long term (current) use of opiate analgesic; Z79.1 Long term (current) use of non-steroidal anti-inflammatories (NSAID); Z79.01 Long term (current) use of anticoagulants; Z99.81 Dependence on supplemental oxygen; Z89.511 Acquired absence of right leg below knee
CPT/HCPCS: 36415; 36600; 70450; 71045; 71275; 74176; 76705; 76942; 80048; 80053; 80074; 82140; 82607; 82728; 82746; 82805; 82962; 83036; 83540; 83550; 83605; 83735; 83880; 83986; 84100; 84443; 84478; 84484; 85007; 85025; 85027; 85610; 85652; 86141; 87040; 87070; 87077; 87081; 87186; 87205; 87426; 87804; 89051; 90935; 92610; 93005; 93306; 93925; 93970; 93971; 96365; 99291; G0378; J0692; J1642; J1815; J2185; J2405; J2470; J2543; J3480; J7131; P9047